=== PATIENT | female | born 1945 | race Caucasian/White ===

== ENCOUNTER 2023-01-14 16:42 | Inpatient (IN) ==
[2023-01-14 17:41] LABS: Base Excess VBG 3.2 mEq/L; HCO3 VBG 27 mmol/L; Oxygen Saturation VBG < 60.0 %; PCO2 VBG 37 mmHg (38-50); PO2 VBG 24 mmHg; pH VBG 7.47 (7.36-7.41)
--- NOTE | 2023-01-14 17:44 | XRay Report ---
XR chest 1V portable HISTORY: 77 years-old Female weakness acute weakness COMPARISON: None TECHNIQUE: AP view of the chest FINDINGS: Cardiac silhouette is enlarged. Pulmonary vascular congestion. No pneumothorax or large pleural effus ion. Mild right hemidiaphragmatic elevation. Blunting the costophrenic angles with mild bibasilar den sities. Degenerative changes of the shoulders and spine. Atherosclerosis of the aorta. IMPRESSION: 1. Cardiomegaly without acute process. 2. Subsegmental bibasilar densities favoring atelectasis. A mild nonspecific pneumonitis could appear similarly. ACT 112: Negative or not required by law. The above report was generated using voice recognition software. It may contain grammatical, syntax o r spelling errors. Electronically signed by: Noah Fletcher M.D. 01/14/2023 5:41 PM
[2023-01-14 17:47] LABS: Basophils # (auto) 0.11 K/uL (0-0.2); Basophils % (auto) 1.1 %; Eosinophils # (auto) 0.34 K/uL (0-0.50); Eosinophils % (auto) 3.4 %; Hematocrit (blood only) 41.6 % (37.0-47.0); Hemoglobin 14.1 g/dl (12.0-16.0); Immature Granulocytes # (auto) 0.03 K/uL (0.01-0.20); Immature Granulocytes % (auto) 0.3 %; Lymphocytes # (auto) 2.53 K/uL (1.2-3.4); Lymphocytes % (auto) 25.3 %; Mean Corpuscular Hemoglobin 31.1 pg (25.0-34.0); Mean Corpuscular Hgb Conc 33.9 g/dL (32.0-36.0); Mean Corpuscular Volume 91.6 fL (80.0-100.0); Mean Platelet Volume 9.5 fL (9.4-12.4); Monocytes # (auto) 1.04 K/uL (0.11-0.59); Monocytes % (auto) 10.4 %; Neutrophils # (auto) 5.96 K/uL (1.40-6.50); Neutrophils % (auto) 59.5 %; Platelet Count 220 K/uL (130-400); RDW Coefficient of Variation 13.1 % (11.5-14.5); RDW Standard Deviation 43.9 fL (36.4-46.3); Red Blood Count 4.54 M/uL (4.20-5.40); White Blood Count 10.01 K/ul (4.8-10.8)
[2023-01-14 18:02] LABS: Albumin Level 3.9 gm/dl (3.4-5.0); Bilirubin Direct 0.1 mg/dl (0-0.2); Bilirubin,Total 0.9 mg/dl (0.2-1.0); Calcium 9.5 mg/dl (8.6-10.3); Creatinine Clr Calc Pharmacy 47.2 ml/min; Est GFR (African American) 50.8 ml/min; Est GFR (Non-African American) 43.8 ml/min; Magnesium 1.2 mg/dl (1.7-2.4); Potassium 4.5 mmol/L (3.5-5.1); Total Protein 6.3 gm/dl (6.0-8.3)
[2023-01-14 18:09] LABS: Troponin I High Sensitivity 13.3 pg/ml (0-14)
[2023-01-14 18:11] LABS: INR 1.1 (0.9-1.1); Partial Thromboplastin Ratio 0.9; Partial Thromboplastin Time 23.9 Seconds (21.0-31.0); Prothrombin Time 11.3 Seconds (9.0-12.0)
[2023-01-14 18:23] LABS: Influenza A virus by PCR Negative (Neg); Influenza B virus by PCR Negative (Neg); RSV by PCR Negative (Neg); SARS CoV2 RNA(COVID-19) Ceph NEGATIVE (Negative)
[2023-01-14] MEDS ORDERED: OPTIRAY 320 500ml IV ONE (18:29)
--- NOTE | 2023-01-14 18:57 | CT Scan Report ---
CT head/brain wo con CLINICAL HISTORY: 77 years-old Female with weakness. Acute weakness with reported dementia TECHNIQUE: Multiple axial CT images of the head were obtained without contrast. A dose lowering tech nique was utilized adhering to the principles of ALARA. CT DOSE: 2551.54 mGy.cm COMPARISON: Brain MRI 05/17/2022. FINDINGS: No acute intracranial hemorrhage, midline shift, intracranial mass, hydrocephalus, territorial ischem ia or abnormal extra-axial collection. Involutional changes with white matter hypodensities suggestiv e of chronic microvascular ischemic disease. 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 Additional tiny chronic infarcts of the right cerebellum. Th e calvarium is intact. The paranasal sinuses, mastoid air cells, and middle ear cavities are clear. IMPRESSION: 1. No acute intracranial abnormality. 2. Chronic findings as above. ACT 112: Negative or not required by law. The above report was generated using voice recognition software. It may contain grammatical, syntax o r spelling errors. Electronically signed by: Noah Fletcher M.D. 01/14/2023 6:56 PM
--- NOTE | 2023-01-14 19:11 | CT Scan Report ---
CT angio chest PE protocol, CT abd pelvis IV con only HISTORY: 77 years-old Female with weakness. Acute weakness with chest and abdominal pain TECHNIQUE: Multiple CTA images of the chest were obtained after the intravenous administration of 110 ml Optiray. Coronal and sagittal MIPS were obtained from the axial data set and were submitted for review. All measurements were obtained according to NASCET criteria. A dose lowering technique was u tilized adhering to the principles of ALARA. COMPARISON: None. FINDINGS: Limited exam secondary to positioning and respiratory motion artifact. CTA: Moderate cardiomegaly. Fusiform dilation of the ascending thoracic aorta measures up to 4 cm at the l evel of the main pulmonary artery. No dissection. Patency of the imaged great vessels. Suboptimal shayan luation of the pulmonary arterial tree secondary to contrast bolus timing. No central pulmonary embol i identified. CT CHEST: No thyroid nodule. Subcentimeter mediastinal lymph nodes measuring up to 9 mm are likely reactive. Mi ld pleural parenchymal scarring of the left lung apex. Subsegmental bibasilar atelectasis. No pneumot horax, pleural effusion or overt pulmonary edema. No suspicious pulmonary nodules or masses identifie d. Central airways appear patent. Unremarkable soft tissues. Postoperative changes of the left should er. No acute fracture identified. CT ABDOMEN/PELVIS: No pneumatosis or pneumoperitoneum. Unremarkable spleen, pancreas, gallbladder and adrenal glands are within normal limits. Ill-defined 9 mm hypodense focus of the inferior right hepatic lobe is too sma ll to characterize. Patent portal vein. Probable cyst of the inferior pole right kidney, 2.6 cm. Ther e is a 4 cm area of decreased attenuation involving the mid to inferior pole left kidney measuring up to approximately 4.0 x 5.8 cm. 4 mm nonobstructing calculus of the inferior pole left kidney. Mild f ocal scarring with parenchymal thinning within the interpolar left kidney. No ureteral calculi or hyd ronephrosis. Urinary bladder wall thickening with partial distention. Hysterectomy. Atherosclerosis o f the aorta with infrarenal ectasia measuring up to 2.4 x 2.3 cm. No lymphadenopathy identified. Trace free pelvic fluid. There is no bowel obstruction or bowel wall thickening. The appendix is not definitively seen. Unremarkable soft tissues. No acute fracture identified. Posterior interbody matthew a nd screw fusion hardware noted at L3-L5. No evidence of hardware complication. IMPRESSION: 1. Limited exam as above. 2. Unremarkable CTA of the chest. No central pulmonary emboli identified. 3. Moderate sized acute left renal infarct. 4. Left nephrolithiasis. 5. Mild fusiform dilation of the ascending thoracic aorta, 4 cm. 6. Additional findings as above. ACT 112: Negative or not required by law. The above report was generated using voice recognition software. It may contain grammatical, syntax o r spelling errors. Electronically signed by: Noah Fletcher M.D. 01/14/2023 7:08 PM
[2023-01-14] MEDS: MAGNESIUM SULFATE / D5W 1 GM/100 ML BAG IV SCH ×2 (19:48→22:06)
[2023-01-14 20:01] LABS: Appearance Urine Cloudy (Clear); Bacteria Urine Automated 4+ (Negative); Bilirubin Urine Negative (Negative); Blood Urine Negative (Negative); Color Urine Yellow; Epithelial Cell Urine Auto >30 /lpf (0-5); Glucose Urine UA Negative (Negative); Ketones Urine Trace (Negative); Leukocyte Esterase Urine 1+ (Negative); Nitrite Urine Negative (Negative); Specific Gravity Urine > 1.045 (1.000-1.030); Urobilinogen Urine Negative (Negative); WBC Urine Automated >30 /hpf (0-5); pH Urine 8.5 (4.5-7.5)
[2023-01-14 20:19] LABS: Protein Urine Trace (Negative)
[2023-01-14 20:26] LABS: RBC Urine Automated 0-4 /hpf (0-4)
[2023-01-14] MEDS: levETIRAcetam 1,000 MG in 0.9 % SODIUM CHLORIDE 100 ML IV STA ×2 (20:52→21:41)
--- NOTE | 2023-01-14 21:34 | History & Physical Report ---
Date of Service January 14, 2023 Assessment & Plan (1) Hypomagnesemia: (2) Infarction of kidney: (3) Diabetes: (4) HLD (hyperlipidemia): (5) HTN (hypertension): (6) 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: (7) Dementia: (8) GERD (gastroesophageal reflux disease): (9) Bladder spasms: (10) Depression: (11) CHF (congestive heart failure): (12) Confusion and disorientation: Plan Confusion and disorientation- Differential includes but not limited to worsening dementia, metabolic encephalopathy, CVA, seizure Patient will be kept n.p.o. due to decreased responsiveness NSS at 60 mils per hour Hypertension/CHF/hypomagnesemia- Hold amlodipine, carvedilol, furosemide, potassium chloride, Entresto and spironolactone Magnesium level 1.2. 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 We will consult neurology as needed Urinary tract infection- UA looks positive Follow urine culture and sensitivity Placed on ceftriaxone 2 g IV daily History of Present Illness Chief Complaint: The patient presents to the emergency department due to altered mental status, as noted by the family, who reports that she is more confused and weak than her baseline. She underwent a cardiac catheterization by Dr. Steele at [facility] yesterday without need for any intervention, and without incident. Primary Care Provider: Rusty Enriquez MD The patient is a 77-year-old female with a past medical history significant for hypertension, hypercholesterolemia, dementia, CHF, diabetes mellitus, GERD, bladder spasm, depression, and hyperlipidemia. She presents to the emergency department as noted above. Significant abnormal laboratories: WBC 10.01, glucose 191, magnesium 1.2. COVID-19, influenza AMB, and RSV testing all negative CTA of chest was negative for PE, but did show a [address] scan of abdomen and pelvis with contrast showed a moderate-sized acute left renal infarct measuring 4.0 x 5.8 cm While in the ED, patient did appear to have some possible seizure-like activity suggesting a possible focal seizure involving right upper extremity, for which she was given Keppra 1000 mg IV empirically, and MRI brain was ordered along with EEG Allergies Allergy/AdvReac Type Severity Reaction Status Date / Time aspirin Allergy Severe Hives Verified 06/17/22 14:14 NSAIDS (Non-Steroidal Allergy Intermediate Hives Verified 06/17/22 14:14 Anti-Inflamma Home Medications Medication Instructions Recorded Confirmed Type amlodipine 5 mg tablet 5 mg PO DAILY 01/29/22 01/14/23 History carvedilol 3.125 mg tablet 3.125 mg PO BID 01/29/22 01/14/23 History oxybutynin chloride 5 mg 5 mg PO HS 01/29/22 01/14/23 History tablet,extended release 24 hr paroxetine HCl 20 mg tablet 20 mg PO HS 01/29/22 01/14/23 History rosuvastatin 20 mg tablet 20 mg PO DAILY 01/29/22 01/14/23 History sacubitril 24 mg-valsartan 26 mg 1 tab PO BID 01/29/22 01/14/23 History tablet (Entresto) spironolactone 25 mg tablet 25 mg PO DAILY 01/29/22 01/14/23 History syringe with needle 3 mL 25 x 5/8" #8 ea 02/04/22 01/14/23 Rx (BD Eclipse Luer-Andrei) diazepam 5 mg tablet (Valium) 5 mg PO .COMPLEX PRN anxiety #2 02/25/22 01/14/23 Rx tabs donepezil 5 mg tablet 5 mg PO HS #30 tabs 01/06/23 01/14/23 Rx cholestyramine-aspartame 4 gram 1 ea PO DAILY 01/14/23 01/14/23 History oral powder for susp in a packet (Cholestyramine Light) ergocalciferol (vitamin D2) 1,250 1,250 mcg PO WK 01/14/23 01/14/23 History mcg (50,000 unit) capsule (Vitamin D2) furosemide 80 mg tablet 80 mg PO DAILY 01/14/23 01/14/23 History metformin 1,000 mg tablet 1,000 mg PO BID 01/14/23 01/14/23 History nystatin 100,000 unit/gram topical 1 applic topical UD 01/14/23 01/14/23 History powder omeprazole 20 mg capsule,delayed 40 mg PO DAILY 01/14/23 01/14/23 History release potassium chloride 20 mEq 40 meq PO BID 01/14/23 01/14/23 History tablet,extended release(part/cryst) Past Med/Surg History Medical History (Updated 01/15/23 @ 03:56 by Jon Eagle MD) Bladder spasms CHF (congestive heart failure) Dementia Depression Diabetes GERD (gastroesophageal reflux disease) HLD (hyperlipidemia) HTN (hypertension) 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 Daughter, Ary, takes care of patient. Home health. Other Information That Helps Us Care for You: No Feels Safe at Home: Yes Safety Concerns: Feels Safe At This Time Assistive Devices: Cane, Denture - Upper, Denture - Lower, Glasses and Walker Review of Systems Review of Systems: Review of systems and HPI are limited due to patient's underlying dementia Physical Exam Physical Exam: The patient is awake, confused, normocephalic and atraumatic, lying in bed and in no acute distress. HEENT--PERRL, EOMI, mucous membranes and oropharynx dry. Neck--supple. No JVD. No bruits. Thyroid normal, trachea midline, no adenopathy. Heart--normal S1 and S2. No murmurs, rubs or gallops. Lungs--clear bilaterally, no respiratory distress, no accessory muscle use. Abdomen--normal bowel sounds and soft. Nontender. Nondistended. Obese Extremities--no cyanosis or clubbing. No edema. Dermatologic--normal skin turgor, normal color, no abnormal lymph nodes, no rash. Neurologic--cranial nerves II through XII grossly intact. Limited exam Rheumatologic--limited exam Psychiatric--confused Results & Data Results & Data Vital Signs (Past 12 Hours) Vital Signs Temp Pulse Resp BP Pulse Ox O2 Del Method 01/14/23 20:00 81 22 164/102 H 95 01/14/23 19:31 80 22 152/93 H 94 01/14/23 19:22 79 22 170/108 H 94 01/14/23 19:08 92 H 22 154/94 H 96 01/14/23 20:30 81 01/14/23 17:12 73 16 97 Room Air 01/14/23 16:54 36.9 C 80 14 149/99 H 95 Room Air 01/14/23 16:50 88 Laboratory Results Laboratory Results WBC 10.01 K/ul (4.8-10.8) 01/14/23 17:31 RBC 4.54 M/uL (4.20-5.40) 01/14/23 17:31 Hgb 14.1 g/dl (12.0-16.0) 01/14/23 17: Hct 41.6 % (37.0-47.0) 01/14/23 17:31 MCV 91.6 fL (80.0-100.0) 01/14/23 17: MCH 31.1 pg (25.0-34.0) 01/14/23 17: MCHC 33.9 g/dL (32.0-36.0) 01/14/23 17:31 RDW Std Deviation 43.9 fL (36.4-46.3) 01/14/23 17:31 RDW Coeff of Sam 13.1 % (11.5-14.5) 01/14/23 17:31 Plt Count 220 K/uL (130-400) 01/14/23 17:31 MPV 9.5 fL (9.4-12.4) 01/14/23 17: Immature Gran % (Auto) 0.3 % 01/14/23 17:31 Neut % (Auto) 59.5 % 01/14/23 17:31 Lymph % (Auto) 25.3 % 01/14/23 17: [place] % (Auto) 10.4 % 01/14/23 17: Eos % (Auto) 3.4 % 01/14/23 17:31 Baso % (Auto) 1.1 % 01/14/23 17:31 Neut # (Auto) 5.96 K/uL (1.40-6.50) 01/14/23 17: Lymph # (Auto) 2.53 K/uL (1.2-3.4) 01/14/23 17:31 [place] # (Auto) 1.04 K/uL (0.11-0.59) H 01/14/23 17: Eos # (Auto) 0.34 K/uL (0-0.50) 01/14/23 17: Baso # (Auto) 0.11 K/uL (0-0.2) 01/14/23: Immature Gran # (Auto) 0.03 K/uL (0.01-0.20) 01/14/23 17: PT 11.3 Seconds (9.0-12.0) 01/14/23: INR 1.1 (0.9-1.1) 01/14/23: APTT 23.9 Seconds (21.0-31.0) 01/14/23: PTT Ratio 0.9 01/14/23: VBG pH 7.47 (7.36-7.41) H 01/14/23: VBG pCO2 37 mmHg (38-50) L 01/14/23 17: VBG pO2 24 mmHg 01/14/23: VBG HCO3 27 mmol/L 01/14/23: VBG O2 Saturation < 60.0 % 01/14/23: VBG Base Excess 3.2 mEq/L 01/14/23: Sodium 139 mmol/L (136-145) 01/14/23 17: Potassium 4.5 mmol/L (3.5-5.1) 01/14/23: Chloride 104 mmol/L (98-107) 01/14/23: Carbon Dioxide 27 mmol/L (21-32) 01/14/23:30 Anion Gap 8 (3-11) 01/14/23: BUN 13 mg/dl (6-23) 01/14/23: Creatinine 1.18 mg/dl (0.6-1.2) 01/14/23 17: Est Cr Clr Drug Dosing 47.2 ml/min 01/14/23 17:30 Est GFR ( Amer) 50.8 ml/min 01/14/23 17: Est GFR (Non-Af Amer) 43.8 ml/min 01/14/23 17:30 BUN/Creatinine Ratio 11.0 (10-20) 01/14/23 17:30 Glucose 191 mg/dl (70-99(Fasting)) H 01/14/23 17:30 POC Glucose 203 mg/dl (70-99) H 01/15/23 01:01 Calcium 9.5 mg/dl (8.6-10.3) 01/14/23 17:30 Magnesium 1.2 mg/dl (1.7-2.4) L 01/14/23 17:30 Total Bilirubin 0.9 mg/dl (0.2-1.0) 01/14/23 17:30 Direct Bilirubin 0.1 mg/dl (0-0.2) 01/14/23 17:30 AST 28 U/L (13-39) 01/14/23 17:30 ALT 13 U/L (7-52) 01/14/23 17:30 Alkaline Phosphatase 45 U/L (34-104) 01/14/23 17:30 Ammonia 20.0 umol/L (18-72) 01/14/23 17:30 Troponin I High Sens 13.3 pg/ml (0-14) 01/14/23 17:30 Total Protein 6.3 gm/dl (6.0-8.3) 01/14/23 17:30 Albumin 3.9 gm/dl (3.4-5.0) 01/14/23 17:30 Lipase 38 U/L (11-82) 01/14/23 17:30 Urine Color Yellow 01/14/23 19:20 Urine Appearance Cloudy (Clear) A 01/14/23 19:20 Urine pH 8.5 (4.5-7.5) H 01/14/23 19:20 Ur Specific [place] > 1.045 (1.000-1.030) H 01/14/23 19:20 Urine Protein Trace (Negative) H 01/14/23 19:20 Urine Glucose (UA) Negative (Negative) 01/14/23 19:20 Urine Ketones Trace (Negative) H 01/14/23 19:20 Urine Blood Negative (Negative) 01/14/23 19:20 Urine Nitrite Negative (Negative) 01/14/23 19:20 Urine Bilirubin Negative (Negative) 01/14/23 19:20 Urine Urobilinogen Negative (Negative) 01/14/23 19:20 Ur Leukocyte Esterase 1+ (Negative) H 01/14/23 19:20 Urine WBC (Auto) >30 /hpf (0-5) H 01/14/23 19:20 Urine RBC (Auto) 0-4 /hpf (0-4) 01/14/23 19:20 U Hyaline Cast (Auto) 1-5 /lpf (0-5) 01/14/23 19:20 U Epithel Cells (Auto) >30 /lpf (0-5) H 01/14/23 19:20 Urine Bacteria (Auto) 4+ (Negative) H 01/14/23 19:20 SARS-CoV-2 (PCR) NEGATIVE (Negative) 01/14/23 17:24 Influenza Type A (PCR) Negative (Neg) 01/14/23 17:24 Influenza Type B (PCR) Negative (Neg) 01/14/23 17:24 RSV (RT-PCR) Negative (Neg) 01/14/23 17:24 Impressions Abdomen/Pelvis CT 01/14/23 17:12 CT angio chest PE protocol, CT abd pelvis IV con only HISTORY: 77 years-old Female with weakness. Acute weakness with chest and abdominal pain TECHNIQUE: Multiple CTA images of the chest were obtained after the intravenous administration of 110 ml Optiray. Coronal and sagittal MIPS were obtained from the axial data set and were submitted for review. All measurements were obtained according to NASCET criteria. A dose lowering technique was utilized adhering to the principles of ALARA. COMPARISON: None. FINDINGS: Limited exam secondary to positioning and respiratory motion artifact. CTA: Moderate cardiomegaly. Fusiform dilation of the ascending thoracic aorta measures up to 4 cm at the level of the main pulmonary artery. No dissection. Patency of the imaged great vessels. Suboptimal evaluation of the pulmonary arterial tree secondary to contrast bolus timing. No central pulmonary emboli identified. CT CHEST: No thyroid nodule. Subcentimeter mediastinal lymph nodes measuring up to 9 mm are likely reactive. Mild pleural parenchymal scarring of the left lung apex. Subsegmental bibasilar atelectasis. No pneumothorax, pleural effusion or overt pulmonary edema. No suspicious pulmonary nodules or masses identified. Central airways appear patent. Unremarkable soft tissues. Postoperative changes of the left shoulder. No acute fracture identified. CT ABDOMEN/PELVIS: No pneumatosis or pneumoperitoneum. Unremarkable spleen, pancreas, gallbladder and adrenal glands are within normal limits. Ill-defined 9 mm hypodense focus of the inferior right hepatic lobe is too small to characterize. Patent portal vein. Probable cyst of the inferior pole right kidney, 2.6 cm. There is a 4 cm area of decreased attenuation involving the mid to inferior pole left kidney measuring up to approximately 4.0 x 5.8 cm. 4 mm nonobstructing calculus of the inferior pole left kidney. Mild focal scarring with parenchymal thinning within the interpolar left kidney. No ureteral calculi or hydronephrosis. Urinary bladder wall thickening with partial distention. Hysterectomy. Atherosclerosis of the aorta with infrarenal ectasia measuring up to 2.4 x 2.3 cm. No lymphadenopathy identified. Trace free pelvic fluid. There is no bowel obstruction or bowel wall thickening. The appendix is not definitively seen. Unremarkable soft tissues. No acute fracture identified. Posterior interbody matthew and screw fusion hardware noted at L3-L5. No evidence of hardware complication. IMPRESSION: 1. Limited exam as above. 2. Unremarkable CTA of the chest. No central pulmonary emboli identified. 3. Moderate sized acute left renal infarct. 4. Left nephrolithiasis. 5. Mild fusiform dilation of the ascending thoracic aorta, 4 cm. 6. Additional findings as above. ACT 112: Negative or not required by law. The above report was generated using voice recognition software. It may contain grammatical, syntax or spelling errors. Electronically signed by: Noah Fletcher M.D. 01/14/2023 7:08 PM Chest CTA 01/14/23 17:13 CT angio chest PE protocol, CT abd pelvis IV con only HISTORY: 77 years-old Female with weakness. Acute weakness with chest and abdominal pain TECHNIQUE: Multiple CTA images of the chest were obtained after the intravenous administration of 110 ml Optiray. Coronal and sagittal MIPS were obtained from the axial data set and were submitted for review. All measurements were obtained according to NASCET criteria. A dose lowering technique was utilized adhering to the principles of ALARA. COMPARISON: None. FINDINGS: Limited exam secondary to positioning and respiratory motion artifact. CTA: Moderate cardiomegaly. Fusiform dilation of the ascending thoracic aorta measures up to 4 cm at the level of the main pulmonary artery. No dissection. Patency of the imaged great vessels. Suboptimal evaluation of the pulmonary arterial tree secondary to contrast bolus timing. No central pulmonary emboli identified. CT CHEST: No thyroid nodule. Subcentimeter mediastinal lymph nodes measuring up to 9 mm are likely reactive. Mild pleural parenchymal scarring of the left lung apex. Subsegmental bibasilar atelectasis. No pneumothorax, pleural effusion or overt pulmonary edema. No suspicious pulmonary nodules or masses identified. Central airways appear patent. Unremarkable soft tissues. Postoperative changes of the left shoulder. No acute fracture identified. CT ABDOMEN/PELVIS: No pneumatosis or pneumoperitoneum. Unremarkable spleen, pancreas, gallbladder and adrenal glands are within normal limits. Ill-defined 9 mm hypodense focus of the inferior right hepatic lobe is too small to characterize. Patent portal vein. Probable cyst of the inferior pole right kidney, 2.6 cm. There is a 4 cm area of decreased attenuation involving the mid to inferior pole left kidney measuring up to approximately 4.0 x 5.8 cm. 4 mm nonobstructing calculus of the inferior pole left kidney. Mild focal scarring with parenchymal thinning within the interpolar left kidney. No ureteral calculi or hydronephrosis. Urinary bladder wall thickening with partial distention. Hysterectomy. Atherosclerosis of the aorta with infrarenal ectasia measuring up to 2.4 x 2.3 cm. No lymphadenopathy identified. Trace free pelvic fluid. There is no bowel obstruction or bowel wall thickening. The appendix is not definitively seen. Unremarkable soft tissues. No acute fracture identified. Posterior interbody matthew and screw fusion hardware noted at L3-L5. No evidence of hardware complication. IMPRESSION: 1. Limited exam as above. 2. Unremarkable CTA of the chest. No central pulmonary emboli identified. 3. Moderate sized acute left renal infarct. 4. Left nephrolithiasis. 5. Mild fusiform dilation of the ascending thoracic aorta, 4 cm. 6. Additional findings as above. ACT 112: Negative or not required by law. The above report was generated using voice recognition software. It may contain grammatical, syntax or spelling errors. Electronically signed by: Noah Fletcher M.D. 01/14/2023 7:08 PM Chest X-Ray 01/14/23 17:13 XR chest 1V portable HISTORY: 77 years-old Female weakness acute weakness COMPARISON: None TECHNIQUE: AP view of the chest FINDINGS: Cardiac silhouette is enlarged. Pulmonary vascular congestion. No pneumothorax or large pleural effusion. Mild right hemidiaphragmatic elevation. Blunting the costophrenic angles with mild bibasilar densities. Degenerative changes of the shoulders and spine. Atherosclerosis of the aorta. IMPRESSION: 1. Cardiomegaly without acute process. 2. Subsegmental bibasilar densities favoring atelectasis. A mild nonspecific pneumonitis could appear similarly. ACT 112: Negative or not required by law. The above report was generated using voice recognition software. It may contain grammatical, syntax or spelling errors. Electronically signed by: Noah Fletcher M.D. 01/14/2023 5:[address] 01/14/23 17:13 CT head/brain wo con CLINICAL HISTORY: 77 years-old Female with weakness. Acute weakness with reported dementia TECHNIQUE: Multiple axial CT images of the head were obtained without contrast. A dose lowering technique was utilized adhering to the principles of ALARA. CT DOSE: 2551.54 mGy.cm COMPARISON: Brain MRI 05/17/2022. FINDINGS: No acute intracranial hemorrhage, midline shift, intracranial mass, hydrocephalus, territorial ischemia or abnormal extra-axial collection. Involutional changes with white matter hypodensities suggestive of chronic microvascular ischemic disease. 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 Additional tiny chronic infarcts of the right cerebellum. The calvarium is intact. The paranasal sinuses, mastoid air cells, and middle ear cavities are clear. IMPRESSION: 1. No acute intracranial abnormality. 2. Chronic findings as above. ACT 112: Negative or not required by law. The above report was generated using voice recognition software. It may contain grammatical, syntax or spelling errors. Electronically signed by: Noah Fletcher M.D. 01/14/2023 6:56 PM Renal Artery Duplex 01/14/23 21:37 Exam(s): US RENAL EXAM: US Retroperitoneal Limited, Renal CLINICAL HISTORY: Reason for exam: acute left renal infarct. TECHNIQUE: Real-time limited ultrasound of the retroperitoneum with image documentation. COMPARISON: CT scan from January 14, 2023. FINDINGS: Aorta: The abdominal aorta is widely patent peak systolic velocity 93 cm/s. Right kidney: The right kidney measures 10 cm craniocaudad with normal appearance. No hydronephrosis. The right main renal artery measures up to 9 9 cm/s with resistive index of 0.71. The right renal arcuate arteries demonstrate normal waveforms with resistive indices ranging from 0.5-0.65. The right renal vein is patent. Right renal aortic ratio is 1. 1. No stones. Left kidney: The left main renal artery measures 75 cm/s with resistive index of 0.73. The left renal arcuate arteries are not well seen. Only one is measured with a resistive index of 0.5. Left renal aortic ratio is 0.8. IMPRESSION: Limited visualization of the left renal vascular structures. The main renal artery is patent without evidence of thrombosis or renal artery stenosis. Only one left renal arcuate artery could be measured with normal resistive index of 0.5. The right renal arterial structures appear within normal limits. No evidence of thrombosis or renal artery stenosis. Electronically signed by: Karri Tyson MD 01/15/23 02:07 AM Code Status & VTE Plan Code Status Full code per POA VTE Prophylaxis Plan VTE Prophylaxis will be ordered: Yes PG Care Time/CCT Total # of Minutes Spent Total Time Spent with Patient: Total time spent is greater than 50% in coordination of care (as documented) at patient's floor/unit and/or counseling patient: Coding Level of Care Code 11487 INT INP/OBS CARE 3/75MIN Diagnoses Hypomagnesemia E83.42 Infarction of kidney N28.0 Diabetes E11.9 HLD (hyperlipidemia) E78.5 HTN (hypertension) I10 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 I63.20 Dementia F03.90 GERD (gastroesophageal reflux disease) K21.9 Bladder spasms N32.89 Depression F32.A CHF (congestive heart failure) I50.9 Confusion and disorientation R41.0
[2023-01-14] MEDS ORDERED: LORazepam 2 MG/1 ML VIAL IV STA (22:15)
[2023-01-14] MEDS ORDERED: GLUCAGON FOR INJ 1 MG VIAL SQ PRN (22:34)
[2023-01-14] MEDS ORDERED: ONDANSETRON INJ 2 MG/ML 2 ML VIAL IV PRN (22:34)
[2023-01-14] MEDS ORDERED: CARBOHYDRATES FOR HYPOGLYCEMIA PO PRN (22:34)
[2023-01-14] MEDS ORDERED: DEXTROSE 50% 50 ML SYRINGE IV PRN (22:34)
[2023-01-14] MEDS ORDERED: GLUCOSE 40% GEL 15 GM TUBE PO PRN (22:34)
[2023-01-14] MEDS ORDERED: GLUCOSE 10 TAB/TUBE PO PRN (22:34)
[2023-01-14] MEDS ORDERED: INFLUENZA VACCINE HIGH DOSE PF 65+ 0.7 ML SYR IM ONE (22:56)
[2023-01-14] MEDS: SODIUM CHLORIDE 0.9% 1000ML 1,000 ML IV SCH (23:16)
[2023-01-15] MEDS: HEPARIN SOD 5,000 UNIT/0.5 ML VIAL SQ SCH ×4 (00:58→21:05)
[2023-01-15] MEDS: INSULIN ASPART PER UNIT CHARGE SC SCH ×5 (01:05→21:04)
--- NOTE | 2023-01-15 01:13 | Emergency Department Note ---
History of Present Illness General Chief complaint: Illness Stated complaint: AMS? Heart cath yesterday [facility] Time Seen by Provider: 01/14/23 17:02 History of Present Illness Provider complaint: Altered mental status 77-year-old female with history of dementia presents to the emergency department for altered mental status. Family reports that the patient is more confused than usual and more weak than usual. They report that the patient had a heart cath by Dr. Escobar or at [facility] yesterday. No falls. Home Medications Medication Instructions Recorded Confirmed Type amlodipine 5 mg tablet 5 mg PO DAILY 01/29/22 01/14/23 History carvedilol 3.125 mg tablet 3.125 mg PO BID 01/29/22 01/14/23 History oxybutynin chloride 5 mg 5 mg PO HS 01/29/22 01/14/23 History tablet,extended release 24 hr paroxetine HCl 20 mg tablet 20 mg PO HS 01/29/22 01/14/23 History rosuvastatin 20 mg tablet 20 mg PO DAILY 01/29/22 01/14/23 History sacubitril 24 mg-valsartan 26 mg 1 tab PO BID 01/29/22 01/14/23 History tablet (Entresto) spironolactone 25 mg tablet 25 mg PO DAILY 01/29/22 01/14/23 History syringe with needle 3 mL 25 x 5/8" #8 ea 02/04/22 01/14/23 Rx (BD Eclipse Luer-Andrei) diazepam 5 mg tablet (Valium) 5 mg PO .COMPLEX PRN anxiety #2 02/25/22 01/14/23 Rx tabs donepezil 5 mg tablet 5 mg PO HS #30 tabs 01/06/23 01/14/23 Rx cholestyramine-aspartame 4 gram 1 ea PO DAILY 01/14/23 01/14/23 History oral powder for susp in a packet (Cholestyramine Light) ergocalciferol (vitamin D2) 1,250 1,250 mcg PO WK 01/14/23 01/14/23 History mcg (50,000 unit) capsule (Vitamin D2) furosemide 80 mg tablet 80 mg PO DAILY 01/14/23 01/14/23 History metformin 1,000 mg tablet 1,000 mg PO BID 01/14/23 01/14/23 History nystatin 100,000 unit/gram topical 1 applic topical UD 01/14/23 01/14/23 History powder omeprazole 20 mg capsule,delayed 40 mg PO DAILY 01/14/23 01/14/23 History release potassium chloride 20 mEq 40 meq PO BID 01/14/23 01/14/23 History tablet,extended release(part/cryst) Allergies Allergy/AdvReac Type Severity Reaction Status Date / Time aspirin Allergy Severe Hives Verified 06/17/22 14:14 NSAIDS (Non-Steroidal Allergy Intermediate Hives Verified 06/17/22 14:14 Anti-Inflamma Past Med/Surg History Medical History Dementia Diabetes HLD (hyperlipidemia) HTN (hypertension) 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 Daughter, Ary, takes care of patient. Home health. Other Information That Helps Us Care for You: No Feels Safe at Home: Yes Safety Concerns: Feels Safe At This Time Assistive Devices: Cane, Denture - Upper, Denture - Lower, Glasses and Walker Physical Exam Vital Signs Vital Signs - 24 hr 01/14/23 16:50 01/14/23 16:54 01/14/23 17:12 Temperature 36.9 C Temperature Source Oral Pulse Rate 88 80 73 Pulse Rate from SpO2 Sensor Pulse Rhythm Irregular Regular Respiratory Rate 14 16 Blood Pressure 149/99 H Blood Pressure Mean 115 Pulse Oximetry 95 97 Oxygen Delivery Method Room Air Room Air Sepsis Recent Fever Within 48 Hours No Sepsis New/Unexplained Change in Mental Status Yes Sepsis Action Taken by Nursing No Action Required 01/14/23 20:30 01/14/23 19:08 01/14/23 19:22 Temperature Temperature Source Pulse Rate 81 92 H 79 Pulse Rate from SpO2 Sensor Pulse Rhythm Respiratory Rate 22 22 Blood Pressure 154/94 H 170/108 H Blood Pressure Mean 114 128 Pulse Oximetry 96 94 Oxygen Delivery Method Sepsis Recent Fever Within 48 Hours Sepsis New/Unexplained Change in Mental Status Sepsis Action Taken by Nursing 01/14/23 19:31 01/14/23 20:00 01/14/23 21:00 Temperature Temperature Source Pulse Rate 80 81 94 H Pulse Rate from SpO2 Sensor Pulse Rhythm Respiratory Rate 22 22 24 Blood Pressure 152/93 H 164/102 H 140/89 Blood Pressure Mean 112 122 106 Pulse Oximetry 94 95 93 Oxygen Delivery Method Room Air Sepsis Recent Fever Within 48 Hours Sepsis New/Unexplained Change in Mental Status Sepsis Action Taken by Nursing 01/14/23 21:30 01/14/23 21:30 Temperature Temperature Source Pulse Rate 91 H Pulse Rate from SpO2 Sensor 86 Pulse Rhythm Respiratory Rate 18 Blood Pressure 138/85 Blood Pressure Mean 102 Pulse Oximetry 94 Oxygen Delivery Method Sepsis Recent Fever Within 48 Hours Sepsis New/Unexplained Change in Mental Status Sepsis Action Taken by Nursing Physical Exam HENT: Exam performed. -Head: Normocephalic and atraumatic. -Right Ear: External ear normal. No mastoid erythema -Left Ear: External ear normal. No mastoid erythema EYES: Conjunctivae and EOM are normal. Pupils are equal, round, and reactive to light. Right eye exhibits no discharge. Left eye exhibits no discharge. No scleral icterus. NECK: Normal range of motion. Neck supple. No JVD present. No spinous process tenderness present. No tracheal deviation and normal range of motion present. CV: Normal rate, regular rhythm, normal heart sounds and intact distal pulses. There is no peripheral edema. Palpable radial pulses bue. PULM/CHEST: Effort normal and breath sounds normal. No respiratory distress. No stridor. She has no wheezes. She has no rales. ABD: The abdomen is soft. She has no distension. MUSC: Right groin heart cath site is well-appearing with no obvious bleeding erythema or hematoma SKIN: Skin is warm and dry. She is not diaphoretic. PSYCH: She has a normal mood and affect. Behavior is normal. Judgment and thought content normal. Course Course 1701: The patient was evaluated in room C7. A complete history and physical exam was performed Administered Medications Heparin Sodium (Porcine) (Heparin Sod 5,000 Unit/0.5 Ml Vial) 7,500 units SQ Q8 ROSANNA Stop: 02/13/23 22:33 Last Admin: 01/15/23 00:58 Dose: 7,500 units Documented By: AMM Sodium Chloride (Nss 1000ml) 1,000 mls @ 60 mls/hr IV .[id number] ROSANNA Stop: 02/13/23 22:33 Last Infusion: 01/14/23 23:59 Dose: 0 mls/hr Documented By: Admin: 01/14/23 23:16 Dose: 60 mls/hr Documented By: BETY Insulin Aspart (Insulin Aspart Per Unit Charge) 0 units SC Q6 ROSANNA Stop: 02/14/23 00:00 Last Admin: 01/15/23 01:05 Dose: 3 units Documented By: BETY Co-signed By: STAYING MACHINE OPERATOR Discontinued Medications Magnesium Sulfate/Dextrose (Magnesium Sulfate / D5w) 1 gm in 100 mls @ 100 mls/hr IV Q1H ROSANNA Stop: 01/14/23 21:13 Last Infusion: 01/14/23 23:59 Dose: 0 mls/hr Documented By: Admin: 01/14/23 22:06 Dose: 100 mls/hr Documented By: Infusion: 01/14/23 20:51 Dose: 0 mls/hr Documented By: Admin: 01/14/23 19:48 Dose: 100 mls/hr Documented By: MIKE Levetiracetam 1,000 mg/ Sodium (Chloride) 110 mls @ 440 mls/hr IV NOW STA Stop: 01/14/23 20:09 Last Infusion: 01/14/23 22:20 Dose: 0 mls/hr Documented By: Admin: 01/14/23 21:41 Dose: 440 mls/hr Documented By: LEWIS Ioversol (Optiray 320 500ml) 110 ml IV ONCE ONE Stop: 01/14/23 18:30 Last Admin: 01/14/23 18:30 Dose: 110 ml Documented By: DANELLE Lorazepam (Lorazepam 2 Mg/1 Ml Vial) 0.5 mg IV NOW STA Stop: 01/14/23 22:16 Last Admin: 01/15/23 00:44 Dose: 0.5 mg Documented By: BETY Medical Decision Making Laboratory Data Attestation: I reviewed the patient's lab results. 01/14/23 17:31 01/14/23 17:30 Lab Results 01/14/23 01/14/23 01/14/23 Range/Units 17:24 17:27 17:30 WBC (4.8-10.8) K/ul RBC (4.20-5.40) M/uL Hgb (12.0-16.0) g/dl Hct (37.0-47.0) % MCV (80.0-100.0) fL MCH (25.0-34.0) pg MCHC (32.0-36.0) g/dL RDW Std Deviation (36.4-46.3) fL RDW Coeff of Sam (11.5-14.5) % Plt Count (130-400) K/uL MPV (9.4-12.4) fL Immature Gran % (Auto) % Neut % (Auto) % Lymph % (Auto) % [place] % (Auto) % Eos % (Auto) % Baso % (Auto) % Neut # (Auto) (1.40-6.50) K/uL Lymph # (Auto) (1.2-3.4) K/uL [place] # (Auto) (0.11-0.59) K/uL Eos # (Auto) (0-0.50) K/uL Baso # (Auto) (0-0.2) K/uL Immature Gran # (Auto) (0.01-0.20) K/uL PT (9.0-12.0) Seconds INR (0.9-1.1) APTT (21.0-31.0) Seconds PTT Ratio VBG pH (7.36-7.41) VBG pCO2 (38-50) mmHg VBG pO2 mmHg VBG HCO3 mmol/L VBG O2 Saturation % VBG Base Excess mEq/L Sodium 139 (136-145) mmol/L Potassium 4.5 (3.5-5.1) mmol/L Chloride 104 (98-107) mmol/L Carbon Dioxide 27 (21-32) mmol/L Anion Gap 8 (3-11) BUN 13 (6-23) mg/dl Creatinine 1.18 (0.6-1.2) mg/dl Est Cr Clr Drug Dosing 47.2 ml/min Est GFR ( Amer) 50.8 ml/min Est GFR (Non-Af Amer) 43.8 ml/min BUN/Creatinine Ratio 11.0 (10-20) Glucose 191 H (70-99(Fasting)) mg/dl POC Glucose 178 H (70-99) mg/dl Calcium 9.5 (8.6-10.3) mg/dl Magnesium 1.2 L (1.7-2.4) mg/dl Total Bilirubin 0.9 (0.2-1.0) mg/dl Direct Bilirubin 0.1 (0-0.2) mg/dl AST 28 (13-39) U/L ALT 13 (7-52) U/L Alkaline Phosphatase 45 (34-104) U/L Ammonia (18-72) umol/L Troponin I High Sens 13.3 (0-14) pg/ml Total Protein 6.3 (6.0-8.3) gm/dl Albumin 3.9 (3.4-5.0) gm/dl Lipase 38 (11-82) U/L Urine Color Urine Appearance (Clear) Urine pH (4.5-7.5) Ur Specific [place] (1.000-1.030) Urine Protein (Negative) Urine Glucose (UA) (Negative) Urine Ketones (Negative) Urine Blood (Negative) Urine Nitrite (Negative) Urine Bilirubin (Negative) Urine Urobilinogen (Negative) Ur Leukocyte Esterase (Negative) Urine WBC (Auto) (0-5) /hpf Urine RBC (Auto) (0-4) /hpf U Hyaline Cast (Auto) (0-5) /lpf U Epithel Cells (Auto) (0-5) /lpf Urine Bacteria (Auto) (Negative) SARS-CoV-2 (PCR) NEGATIVE (Negative) Influenza Type A (PCR) Negative (Neg) Influenza Type B (PCR) Negative (Neg) RSV (RT-PCR) Negative (Neg) 01/14/23 01/14/23 01/14/23 Range/Units 17:30 17:30 17:31 WBC 10.01 (4.8-10.8) K/ul RBC 4.54 (4.20-5.40) M/uL Hgb 14.1 (12.0-16.0) g/dl Hct 41.6 (37.0-47.0) % MCV 91.6 (80.0-100.0) fL MCH 31.1 (25.0-34.0) pg MCHC 33.9 (32.0-36.0) g/dL RDW Std Deviation 43.9 (36.4-46.3) fL RDW Coeff of Sam 13.1 (11.5-14.5) % Plt Count 220 (130-400) K/uL MPV 9.5 (9.4-12.4) fL Immature Gran % (Auto) 0.3 % Neut % (Auto) 59.5 % Lymph % (Auto) 25.3 % [place] % (Auto) 10.4 % Eos % (Auto) 3.4 % Baso % (Auto) 1.1 % Neut # (Auto) 5.96 (1.40-6.50) K/uL Lymph # (Auto) 2.53 (1.2-3.4) K/uL [place] # (Auto) 1.04 H (0.11-0.59) K/uL Eos # (Auto) 0.34 (0-0.50) K/uL Baso # (Auto) 0.11 (0-0.2) K/uL Immature Gran # (Auto) 0.03 (0.01-0.20) K/uL PT 11.3 (9.0-12.0) Seconds INR 1.1 (0.9-1.1) APTT 23.9 (21.0-31.0) Seconds PTT Ratio 0.9 VBG pH (7.36-7.41) VBG pCO2 (38-50) mmHg VBG pO2 mmHg VBG HCO3 mmol/L VBG O2 Saturation % VBG Base Excess mEq/L Sodium (136-145) mmol/L Potassium (3.5-5.1) mmol/L Chloride (98-107) mmol/L Carbon Dioxide (21-32) mmol/L Anion Gap (3-11) BUN (6-23) mg/dl Creatinine (0.6-1.2) mg/dl Est Cr Clr Drug Dosing ml/min Est GFR ( Amer) ml/min Est GFR (Non-Af Amer) ml/min BUN/Creatinine Ratio (10-20) Glucose (70-99(Fasting)) mg/dl POC Glucose (70-99) mg/dl Calcium (8.6-10.3) mg/dl Magnesium (1.7-2.4) mg/dl Total Bilirubin (0.2-1.0) mg/dl Direct Bilirubin (0-0.2) mg/dl AST (13-39) U/L ALT (7-52) U/L Alkaline Phosphatase (34-104) U/L Ammonia 20.0 (18-72) umol/L Troponin I High Sens (0-14) pg/ml Total Protein (6.0-8.3) gm/dl Albumin (3.4-5.0) gm/dl Lipase (11-82) U/L Urine Color Urine Appearance (Clear) Urine pH (4.5-7.5) Ur Specific [place] (1.000-1.030) Urine Protein (Negative) Urine Glucose (UA) (Negative) Urine Ketones (Negative) Urine Blood (Negative) Urine Nitrite (Negative) Urine Bilirubin (Negative) Urine Urobilinogen (Negative) Ur Leukocyte Esterase (Negative) Urine WBC (Auto) (0-5) /hpf Urine RBC (Auto) (0-4) /hpf U Hyaline Cast (Auto) (0-5) /lpf U Epithel Cells (Auto) (0-5) /lpf Urine Bacteria (Auto) (Negative) SARS-CoV-2 (PCR) (Negative) Influenza Type A (PCR) (Neg) Influenza Type B (PCR) (Neg) RSV (RT-PCR) (Neg) 01/14/23 01/14/23 Range/Units 17:31 19:20 WBC (4.8-10.8) K/ul RBC (4.20-5.40) M/uL Hgb (12.0-16.0) g/dl Hct (37.0-47.0) % MCV (80.0-100.0) fL MCH (25.0-34.0) pg MCHC (32.0-36.0) g/dL RDW Std Deviation (36.4-46.3) fL RDW Coeff of Sam (11.5-14.5) % Plt Count (130-400) K/uL MPV (9.4-12.4) fL Immature Gran % (Auto) % Neut % (Auto) % Lymph % (Auto) % [place] % (Auto) % Eos % (Auto) % Baso % (Auto) % Neut # (Auto) (1.40-6.50) K/uL Lymph # (Auto) (1.2-3.4) K/uL [place] # (Auto) (0.11-0.59) K/uL Eos # (Auto) (0-0.50) K/uL Baso # (Auto) (0-0.2) K/uL Immature Gran # (Auto) (0.01-0.20) K/uL PT (9.0-12.0) Seconds INR (0.9-1.1) APTT (21.0-31.0) Seconds PTT Ratio VBG pH 7.47 H (7.36-7.41) VBG pCO2 37 L (38-50) mmHg VBG pO2 24 mmHg VBG HCO3 27 mmol/L VBG O2 Saturation < 60.0 % VBG Base Excess 3.2 mEq/L Sodium (136-145) mmol/L Potassium (3.5-5.1) mmol/L Chloride (98-107) mmol/L Carbon Dioxide (21-32) mmol/L Anion Gap (3-11) BUN (6-23) mg/dl Creatinine (0.6-1.2) mg/dl Est Cr Clr Drug Dosing ml/min Est GFR ( Amer) ml/min Est GFR (Non-Af Amer) ml/min BUN/Creatinine Ratio (10-20) Glucose (70-99(Fasting)) mg/dl POC Glucose (70-99) mg/dl Calcium (8.6-10.3) mg/dl Magnesium (1.7-2.4) mg/dl Total Bilirubin (0.2-1.0) mg/dl Direct Bilirubin (0-0.2) mg/dl AST (13-39) U/L ALT (7-52) U/L Alkaline Phosphatase (34-104) U/L Ammonia (18-72) umol/L Troponin I High Sens (0-14) pg/ml Total Protein (6.0-8.3) gm/dl Albumin (3.4-5.0) gm/dl Lipase (11-82) U/L Urine Color Yellow Urine Appearance Cloudy A (Clear) Urine pH 8.5 H (4.5-7.5) Ur Specific [place] > 1.045 H (1.000-1.030) Urine Protein Trace H (Negative) Urine Glucose (UA) Negative (Negative) Urine Ketones Trace H (Negative) Urine Blood Negative (Negative) Urine Nitrite Negative (Negative) Urine Bilirubin Negative (Negative) Urine Urobilinogen Negative (Negative) Ur Leukocyte Esterase 1+ H (Negative) Urine WBC (Auto) >30 H (0-5) /hpf Urine RBC (Auto) 0-4 (0-4) /hpf U Hyaline Cast (Auto) 1-5 (0-5) /lpf U Epithel Cells (Auto) >30 H (0-5) /lpf Urine Bacteria (Auto) 4+ H (Negative) SARS-CoV-2 (PCR) (Negative) Influenza Type A (PCR) (Neg) Influenza Type B (PCR) (Neg) RSV (RT-PCR) (Neg) Imaging Data Attestation: I personally reviewed and interpreted this imaging study as follows: My Impression: CT head: No [facility]CH Radiologist's Impression: Abdomen/Pelvis CT 01/14/23 17:12 CT angio chest PE protocol, CT abd pelvis IV con only HISTORY: 77 years-old Female with weakness. Acute weakness with chest and abdominal pain TECHNIQUE: Multiple CTA images of the chest were obtained after the intravenous administration of 110 ml Optiray. Coronal and sagittal MIPS were obtained from the axial data set and were submitted for review. All measurements were obtained according to NASCET criteria. A dose lowering technique was utilized adhering to the principles of ALARA. COMPARISON: None. FINDINGS: Limited exam secondary to positioning and respiratory motion artifact. CTA: Moderate cardiomegaly. Fusiform dilation of the ascending thoracic aorta measures up to 4 cm at the level of the main pulmonary artery. No dissection. Patency of the imaged great vessels. Suboptimal evaluation of the pulmonary arterial tree secondary to contrast bolus timing. No central pulmonary emboli identified. CT CHEST: No thyroid nodule. Subcentimeter mediastinal lymph nodes measuring up to 9 mm are likely reactive. Mild pleural parenchymal scarring of the left lung apex. Subsegmental bibasilar atelectasis. No pneumothorax, pleural effusion or overt pulmonary edema. No suspicious pulmonary nodules or masses identified. Central airways appear patent. Unremarkable soft tissues. Postoperative changes of the left shoulder. No acute fracture identified. CT ABDOMEN/PELVIS: No pneumatosis or pneumoperitoneum. Unremarkable spleen, pancreas, gallbladder and adrenal glands are within normal limits. Ill-defined 9 mm hypodense focus of the inferior right hepatic lobe is too small to characterize. Patent portal vein. Probable cyst of the inferior pole right kidney, 2.6 cm. There is a 4 cm area of decreased attenuation involving the mid to inferior pole left kidney measuring up to approximately 4.0 x 5.8 cm. 4 mm nonobstructing calculus of the inferior pole left kidney. Mild focal scarring with parenchymal thinning within the interpolar left kidney. No ureteral calculi or hydronephrosis. Urinary bladder wall thickening with partial distention. Hysterectomy. Atherosclerosis of the aorta with infrarenal ectasia measuring up to 2.4 x 2.3 cm. No lymphadenopathy identified. Trace free pelvic fluid. There is no bowel obstruction or bowel wall thickening. The appendix is not definitively seen. Unremarkable soft tissues. No acute fracture identified. Posterior interbody matthew and screw fusion hardware noted at L3-L5. No evidence of hardware complication. IMPRESSION: 1. Limited exam as above. 2. Unremarkable CTA of the chest. No central pulmonary emboli identified. 3. Moderate sized acute left renal infarct. 4. Left nephrolithiasis. 5. Mild fusiform dilation of the ascending thoracic aorta, 4 cm. 6. Additional findings as above. ACT 112: Negative or not required by law. The above report was generated using voice recognition software. It may contain grammatical, syntax or spelling errors. Electronically signed by: Noah Fletcher M.D. 01/14/2023 7:08 PM Chest CTA 01/14/23 17:13 CT angio chest PE protocol, CT abd pelvis IV con only HISTORY: 77 years-old Female with weakness. Acute weakness with chest and abdominal pain TECHNIQUE: Multiple CTA images of the chest were obtained after the intravenous administration of 110 ml Optiray. Coronal and sagittal MIPS were obtained from the axial data set and were submitted for review. All measurements were obtained according to NASCET criteria. A dose lowering technique was utilized adhering to the principles of ALARA. COMPARISON: None. FINDINGS: Limited exam secondary to positioning and respiratory motion artifact. CTA: Moderate cardiomegaly. Fusiform dilation of the ascending thoracic aorta measures up to 4 cm at the level of the main pulmonary artery. No dissection. Patency of the imaged great vessels. Suboptimal evaluation of the pulmonary arterial tree secondary to contrast bolus timing. No central pulmonary emboli identified. CT CHEST: No thyroid nodule. Subcentimeter mediastinal lymph nodes measuring up to 9 mm are likely reactive. Mild pleural parenchymal scarring of the left lung apex. Subsegmental bibasilar atelectasis. No pneumothorax, pleural effusion or overt pulmonary edema. No suspicious pulmonary nodules or masses identified. Central airways appear patent. Unremarkable soft tissues. Postoperative changes of the left shoulder. No acute fracture identified. CT ABDOMEN/PELVIS: No pneumatosis or pneumoperitoneum. Unremarkable spleen, pancreas, gallbladder and adrenal glands are within normal limits. Ill-defined 9 mm hypodense focus of the inferior right hepatic lobe is too small to characterize. Patent portal vein. Probable cyst of the inferior pole right kidney, 2.6 cm. There is a 4 cm area of decreased attenuation involving the mid to inferior pole left kidney measuring up to approximately 4.0 x 5.8 cm. 4 mm nonobstructing calculus of the inferior pole left kidney. Mild focal scarring with parenchymal thinning within the interpolar left kidney. No ureteral calculi or hydronephrosis. Urinary bladd er wall thickening with partial distention. Hysterectomy. Atherosclerosis of the aorta with infrarenal ectasia measuring up to 2.4 x 2.3 cm. No lymphadenopathy identified. Trace free pelvic fluid. There is no bowel obstruction or bowel wall thickening. The appendix is not definitively seen. Unremarkable soft tissues. No acute fracture identified. Posterior interbody matthew and screw fusion hardware noted at L3-L5. No evidence of hardware complication. IMPRESSION: 1. Limited exam as above. 2. Unremarkable CTA of the chest. No central pulmonary emboli identified. 3. Moderate sized acute left renal infarct. 4. Left nephrolithiasis. 5. Mild fusiform dilation of the ascending thoracic aorta, 4 cm. 6. Additional findings as above. ACT 112: Negative or not required by law. The above report was generated using voice recognition software. It may contain grammatical, syntax or spelling errors. Electronically signed by: Noah Fletcher M.D. 01/14/2023 7:08 PM Chest X-Ray 01/14/23 17:13 XR chest 1V portable HISTORY: 77 years-old Female weakness acute weakness COMPARISON: None TECHNIQUE: AP view of the chest FINDINGS: Cardiac silhouette is enlarged. Pulmonary vascular congestion. No pneumothorax or large pleural effusion. Mild right hemidiaphragmatic elevation. Blunting the costophrenic angles with mild bibasilar densities. Degenerative changes of the shoulders and spine. Atherosclerosis of the aorta. IMPRESSION: 1. Cardiomegaly without acute process. 2. Subsegmental bibasilar densities favoring atelectasis. A mild nonspecific pneumonitis could appear similarly. ACT 112: Negative or not required by law. The above report was generated using voice recognition software. It may contain grammatical, syntax or spelling errors. Electronically signed by: Noah Fletcher M.D. 01/14/2023 5:[address] 01/14/23 17:13 CT head/brain wo con CLINICAL HISTORY: 77 years-old Female with weakness. Acute weakness with reported dementia TECHNIQUE: Multiple axial CT images of the head were obtained without contrast. A dose lowering technique was utilized adhering to the principles of ALARA. CT DOSE: 2551.54 mGy.cm COMPARISON: Brain MRI 05/17/2022. FINDINGS: No acute intracranial hemorrhage, midline shift, intracranial mass, hydrocephalus, territorial ischemia or abnormal extra-axial collection. Involutional changes with white matter hypodensities suggestive of chronic microvascular ischemic disease. 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 Additional tiny chronic infarcts of the right cerebellum. The calvarium is intact. The paranasal sinuses, mastoid air cells, and middle ear cavities are clear. IMPRESSION: 1. No acute intracranial abnormality. 2. Chronic findings as above. ACT 112: Negative or not required by law. The above report was generated using voice recognition software. It may contain grammatical, syntax or spelling errors. Electronically signed by: Noah Fletcher M.D. 01/14/2023 6:56 PM ECG Data Attestation: I personally reviewed and interpreted this ECG as follows: Additional Comments: Atrial fibrillation with rate of 76. QRS 130 QTc 483. Left bundle branch block present. sgarbosa negative MDM Narrative Cardiac monitoring: An order was placed for continuous cardiac monitoring. The monitor shows a rate of 70 with atrial fibrilation rhythm interpreted by me Vital signs stable. Labs show hypomagnesemia. CT head within normal limits. CT of the chest within normal limits. CT abdomen pelvis shows possible splenic infarct. Patient will be admitted to the [facility] team Dr. Beltran notified. Magnesium repletion begun in the emergency department. Impression & Plan Hypomagnesemia, Infarction of kidney Discharge Plan Visit Data Chief Complaint: Illness Stated Complaint: AMS? Heart cath yesterday [facility] ED Provider: Emmanuel Brenner Discharge Problem: Hypomagnesemia, Infarction of kidney Patient Disposition: Admitted As Inpatient Discharge Instructions Interventions: ED Discharge Assessment Last Done: 01/14/23 22:19
--- NOTE | 2023-01-15 02:08 | Ultrasound Report ---
Exam(s): US RENAL EXAM: US Retroperitoneal Limited, Renal CLINICAL HISTORY: Reason for exam: acute left renal infarct. TECHNIQUE: Real-time limited ultrasound of the retroperitoneum with image documentation. COMPARISON: CT scan from January 14, 2023. FINDINGS: Aorta: The abdominal aorta is widely patent peak systolic velocity 93 cm/s. Right kidney: The right kidney measures 10 cm craniocaudad with normal appearance. No hydronephrosis. The right main renal artery measures up to 9 9 cm/s with resistive index of 0.71. The right renal arcuate arteries demonstrate normal waveforms with resistive indices ranging from 0.5-0.65. The right renal vein is patent. Right renal aortic ratio is 1. 1. No stones. Left kidney: The left main renal artery measures 75 cm/s with resistive index of 0.73. The left renal arcuate arteries are not well seen. Only one is measured with a resistive index of 0.5. Left renal aortic ratio is 0.8. IMPRESSION: Limited visualization of the left renal vascular structures. The main renal artery is patent without evidence of thrombosis or renal artery stenosis. Only one left renal arcuate artery could be measured with normal resistive index of 0.5. The right renal arterial structures appear within normal limits. No evidence of thrombosis or renal artery stenosis. Electronically signed by: Karri Tyson MD 01/15/23 02:07 AM
[2023-01-15] MEDS ORDERED: cefTRIAXone SODIUM 2,000 MG in DEXTROSE 5% 50 ML IV SCH (04:00)
[2023-01-15] MEDS ORDERED: cefTRIAXone SODIUM 350 MG/ML IM IM ONE (05:00)
[2023-01-15 06:29] LABS: Basophils # (auto) 0.07 K/uL (0-0.2); Basophils % (auto) 0.7 %; Eosinophils # (auto) 0.21 K/uL (0-0.50); Hematocrit (blood only) 38.1 % (37.0-47.0); Hemoglobin 13.1 g/dl (12.0-16.0); Immature Granulocytes # (auto) 0.04 K/uL (0.01-0.20); Immature Granulocytes % (auto) 0.4 %; Lymphocytes # (auto) 2.22 K/uL (1.2-3.4); Lymphocytes % (auto) 20.8 %; Mean Corpuscular Hemoglobin 31.4 pg (25.0-34.0); Mean Corpuscular Hgb Conc 34.4 g/dL (32.0-36.0); Mean Corpuscular Volume 91.4 fL (80.0-100.0); Mean Platelet Volume 10.4 fL (9.4-12.4); Monocytes # (auto) 1.35 K/uL (0.11-0.59); Monocytes % (auto) 12.7 %; Neutrophils # (auto) 6.78 K/uL (1.40-6.50); Neutrophils % (auto) 63.4 %; Platelet Count 216 K/uL (130-400); RDW Coefficient of Variation 13.3 % (11.5-14.5); RDW Standard Deviation 44.7 fL (36.4-46.3); Red Blood Count 4.17 M/uL (4.20-5.40); White Blood Count 10.67 K/ul (4.8-10.8)
[2023-01-15 06:51] LABS: Albumin Level 3.7 gm/dl (3.4-5.0); BUN Creatinine Ratio 10.5 (10-20); Calcium 9.4 mg/dl (8.6-10.3); Creatinine Clr Calc Pharmacy 41.8 ml/min; Est GFR (Non-African American) 37.9 ml/min; Magnesium 1.8 mg/dl (1.7-2.4); Phosphorus 3.6 mg/dl (2.5-4.9); Potassium 4.3 mmol/L (3.5-5.1)
[2023-01-15 07:01] LABS: INR 1.1 (0.9-1.1); Partial Thromboplastin Ratio 0.8; Partial Thromboplastin Time 22.3 Seconds (21.0-31.0); Prothrombin Time 11.2 Seconds (9.0-12.0)
[2023-01-15 08:11] LABS: Estimated Average Glucose 180 mg/dl; Hemoglobin A1C 7.9 % (4.5-5.6)
[2023-01-15] MEDS ORDERED: Flu Vaccine-High Dose (Fluzone-HD) PF 65+ 0.7mL SYR IM ONE (09:45)
--- NOTE | 2023-01-15 13:32 | Electroencephalogram ---
EEG Procedure Note Date of Service January 15, 2023 Start / End Times Start Time: 1134 End Time: [address] Eagle History 77-year-old with seizure-like activity Home Medication List Medication Instructions Recorded Confirmed Type amlodipine 5 mg tablet 5 mg PO DAILY 01/29/22 01/14/23 History carvedilol 3.125 mg tablet 3.125 mg PO BID 01/29/22 01/14/23 History oxybutynin chloride 5 mg 5 mg PO HS 01/29/22 01/14/23 History tablet,extended release 24 hr paroxetine HCl 20 mg tablet 20 mg PO HS 01/29/22 01/14/23 History rosuvastatin 20 mg tablet 20 mg PO DAILY 01/29/22 01/14/23 History sacubitril 24 mg-valsartan 26 mg 1 tab PO BID 01/29/22 01/14/23 History tablet (Entresto) spironolactone 25 mg tablet 25 mg PO DAILY 01/29/22 01/14/23 History syringe with needle 3 mL 25 x 5/8" #8 ea 02/04/22 01/14/23 Rx (BD Eclipse Luer-Andrei) diazepam 5 mg tablet (Valium) 5 mg PO .COMPLEX PRN anxiety #2 02/25/22 01/14/23 Rx tabs donepezil 5 mg tablet 5 mg PO HS #30 tabs 01/06/23 01/14/23 Rx cholestyramine-aspartame 4 gram 1 ea PO DAILY 01/14/23 01/14/23 History oral powder for susp in a packet (Cholestyramine Light) ergocalciferol (vitamin D2) 1,250 1,250 mcg PO WK 01/14/23 01/14/23 History mcg (50,000 unit) capsule (Vitamin D2) furosemide 80 mg tablet 80 mg PO DAILY 01/14/23 01/14/23 History metformin 1,000 mg tablet 1,000 mg PO BID 01/14/23 01/14/23 History nystatin 100,000 unit/gram topical 1 applic topical UD 01/14/23 01/14/23 History powder omeprazole 20 mg capsule,delayed 40 mg PO DAILY 01/14/23 01/14/23 History release potassium chloride 20 mEq 40 meq PO BID 01/14/23 01/14/23 History tablet,extended release(part/cryst) Inpatient Medication List Heparin Sodium (Porcine) (Heparin Sod 5,000 Unit/0.5 Ml Vial) 7,500 units SQ Q8 ROSANNA Stop: 02/13/23 22:33 Last Admin: 01/15/23 05:45 Dose: 7,500 units Documented By: Admin: 01/15/23 00:58 Dose: 7,500 units Documented By: BETY Sodium Chloride (Nss 1000ml) 1,000 mls @ 60 mls/hr IV .[id number] ROSANNA Stop: 02/13/23 22:33 Last Infusion: 01/14/23 23:59 Dose: 0 mls/hr Documented By: Admin: 01/14/23 23:16 Dose: 60 mls/hr Documented By: BETY Insulin Aspart (Insulin Aspart Per Unit Charge) 0 units SC Q6 ROSANNA Stop: 02/14/23 00:00 Last Admin: 01/15/23 05:45 Dose: 2 units Documented By: BETY Co-signed By: PK Admin: 01/15/23 01:05 Dose: 3 units Documented By: BETY Co-signed By: 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 MACHINE OPERATOR Discontinued Medications Ceftriaxone Sodium (Ceftriaxone Sodium 350 Mg/Ml Im) 1,000 mg IM NOW ONE Stop: 01/15/23 05:01 Last Admin: 01/15/23 05:02 Dose: 1,000 mg Documented By: BETY Magnesium Sulfate/Dextrose (Magnesium Sulfate / D5w) 1 gm in 100 mls @ 100 mls/hr IV Q1H ROSANNA Stop: 01/14/23 21:13 Last Infusion: 01/14/23 23:59 Dose: 0 mls/hr Documented By: Admin: 01/14/23 22:06 Dose: 100 mls/hr Documented By: Infusion: 01/14/23 20:51 Dose: 0 mls/hr Documented By: Admin: 01/14/23 19:48 Dose: 100 mls/hr Documented By: MIKE Levetiracetam 1,000 mg/ Sodium (Chloride) 110 mls @ 440 mls/hr IV NOW STA Stop: 01/14/23 20:09 Last Infusion: 01/14/23 22:20 Dose: 0 mls/hr Documented By: Admin: 01/14/23 21:41 Dose: 440 mls/hr Documented By: LEWIS Influenza Virus Vaccine (Influenza Vaccine High Dose Pf 65+ 0.7 Ml Syr) 0.7 ml IM .ONCE ONE Stop: 01/14/23 22:57 Last Admin: 01/15/23 11:12 Dose: Not Given Documented By: JOSE Ioversol (Optiray 320 500ml) 110 ml IV ONCE ONE Stop: 01/14/23 18:30 Last Admin: 01/14/23 18:30 Dose: 110 ml Documented By: DANELLE Lorazepam (Lorazepam 2 Mg/1 Ml Vial) 0.5 mg IV NOW STA Stop: 01/14/23 22:16 Last Admin: 01/15/23 00:44 Dose: 0.5 mg Documented By: BETY Description This is a 21 electrode EEG with a single channel dedicated to limited EKG. The electrodes were placed in accordance with the International 10-20 system. Interpretation The predominant background activity consists of an irregular 8-9 Hz activity, of up to 40 mV in amplitude,seen symmetrically distributed over the posterior head regions bilaterally. This activity attenuates nicely with eye-opening and other alerting procedures. Photic stimulation was performed and elicited no change in the background activity and no abnormal responses were seen. Hyperventilation was not performed. A mild amount of muscle and movement artifact activity contaminated the recording, yet did not hinder interpretation to any significant degree. Throughout the waking portion of the recording, no focal abnormalities, abnormal slow activity, or potentially epileptogenic discharges are seen. The patient entered the drowsy state and brief periods of stage II sleep with no further activation. In summary, this EEG was normal during wakefulness and sleep. No focal abnormalities, potentially epileptogenic discharges, or abnormal slow activity was seen. Clinical Correlation The abscence of potentially epileptogenic activity does not exclude a seizure disorder, since interictally, EEGs can be normal. Clinical correlation is required. [facility] EEG Procedure Codes Indication for Procedure (1) Seizure-like activity: Neurology Neurology: 72751 EEG include record awake & sleepy
[2023-01-15] MEDS: SODIUM CHLORIDE 0.9% 1000ML 1,000 ML IV SCH (14:00)
--- NOTE | 2023-01-15 14:41 | Magnetic Resonance Report ---
MR brain wo con HISTORY: 77 years-old Female confusion acutely altered mental status COMPARISON: Head CT 01/14/2023, brain MRI 05/17/2022 TECHNIQUE: Multiplanar multisequence MRI of the brain was obtained without the use of IV contrast. FINDINGS: Degenerative changes of the cervical spine. Midline structures appear unremarkable. No restricted dif fusion. Encephalomalacia related to chronic cerebellar infarcts, left greater than right. Additional encephalomalacia and gliosis related to chronic frontoparietal infarcts bilaterally. Involutional césar nges with mild scattered T2/FLAIR hyperintense foci throughout the white matter. There is diffuse thickening of the pachymeninges measuring up to 3 mm on the left and 2 mm on the rig ht, new from 05/17/2022. Cerebral venous sinuses and major arterial flow voids appear patent. The skull, orbits and soft tissu es are unremarkable. Mastoid air cells and paranasal sinuses are clear. IMPRESSION: 1. No acute intracranial abnormality. No acute or subacute infarct. 2. Diffuse thickening of the pachymeninges measuring up to 3 mm on the left and 2 mm on the right whi ch is a new finding compared to the study from 05/17/2022. Findings may represent intracranial hypoten casa. Correlate clinically to exclude infection. 3. Involutional changes with chronic microvascular ischemic disease. 4. Encephalomalacia and gliosis related to chronic cerebral and cerebellar infarcts. ACT 112: Negative or not required by law. The above report was generated using voice recognition software. It may contain grammatical, syntax o r spelling errors. Electronically signed by: Noah Fletcher M.D. 01/15/2023 2:38 PM
[2023-01-15] MEDS ORDERED: Nursing to Pharmacy Communication SCH (18:45)
--- NOTE | 2023-01-15 22:19 | Hospitalist Progress Note ---
Date of Service January 15, 2023 Assessment & Plan (1) Confusion and disorientation: Plan Confusion and disorientation- Differential includes but not limited to worsening dementia, metabolic encephalopathy, CVA, seizure Patient is now more awake reviewed imaging. Patient appears to have chronic encephalomalacia noted on MRI with multiple chronic infarcts. Presentation could be progression of this chronic issue. Patient also appears to have abnormal urine, will treat as a UTI. Though unsure how much this is contributing to her clinical picture. 3 days of ceftriaxone. LD 01/17 EEG is normal. NSS at 60 mils per hour Hypertension/CHF/hypomagnesemia- Hold amlodipine, carvedilol, furosemide, potassium chloride, Entresto and spironolactone Magnesium level 1.2. 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 We will consult neurology as needed Urinary tract infection- UA looks positive Placed on ceftriaxone 2 g IV daily Admission and Anticipated Discharge Date Admission Date: January 14, 2023 Subjective Patient reports no new complaints. She does not recall what brought her to the hospital. SHe is asking for a mountain dew. Review of Systems Review of Systems: All systems reviewed & are unremarkable except as noted in HPI & below Physical Exam Physical Exam: The patient is awake, sitting in chair. HEENT--PERRL, EOMI. Neck--supple. No JVD. No bruits. Thyroid normal, trachea midline, no adenopathy. Heart--normal S1 and S2. No murmurs, rubs or gallops. Lungs--clear bilaterally, no respiratory distress, no accessory muscle use. Abdomen--normal bowel sounds and soft. Nontender. Nondistended. Obese Extremities--no cyanosis or clubbing. No edema. Dermatologic--normal skin turgor, normal color, no abnormal lymph nodes, no rash. Neurologic--cranial nerves II through XII grossly intact. Limited exam Rheumatologic--limited exam Psychiatric--confused Results & Data Results & Data Vital Signs (Past 12 Hours) Vital Signs Temp Pulse Pulse Resp BP Pulse Ox O2 Del Method 01/15/23 19:25 36.5 C 97 H 16 114/73 92 Room Air 01/15/23 16:10 102 H 01/15/23 15:21 36.4 C L 93 H 18 126/85 93 Room Air 01/15/23 11:04 36.7 C 83 18 116/77 91 Room Air PG Care Time/CCT Total # of Minutes Spent Total Time Spent with Patient: Total time spent is greater than 50% in coordination of care (as documented) at patient's floor/unit and/or counseling patient: Coding Level of Care Code 30255 SUB INP/OBS CARE 3/50MIN Diagnoses Confusion and disorientation R41.0
[2023-01-15 23:19] LABS: Hematocrit (blood only) 34.3 % (37.0-47.0); Hemoglobin 11.9 g/dl (12.0-16.0); Mean Corpuscular Hemoglobin 31.6 pg (25.0-34.0); Mean Corpuscular Hgb Conc 34.7 g/dL (32.0-36.0); Mean Corpuscular Volume 91.2 fL (80.0-100.0); Mean Platelet Volume 10.4 fL (9.4-12.4); Platelet Count 188 K/uL (130-400); RDW Coefficient of Variation 13.5 % (11.5-14.5); RDW Standard Deviation 44.8 fL (36.4-46.3); Red Blood Count 3.76 M/uL (4.20-5.40); White Blood Count 9.95 K/ul (4.8-10.8)
[2023-01-15 23:24] LABS: BUN Creatinine Ratio 14.8 (10-20); Creatinine Clr Calc Pharmacy 43.4 ml/min; Est GFR (Non-African American) 39.7 ml/min; Potassium 3.8 mmol/L (3.5-5.1)
[2023-01-15] MEDS ORDERED: ACETAMINOPHEN 325 MG TAB PO PRN (23:59)
[2023-01-16] MEDS: cefTRIAXone SODIUM 2,000 MG in DEXTROSE 5% 50 ML IV SCH (04:16)
[2023-01-16] MEDS: SODIUM CHLORIDE 0.9% 1000ML 1,000 ML IV SCH (05:07)
--- NOTE | 2023-01-16 05:29 | Electrocardiogram Report ---
Test Reason : Blood Pressure : / mmHG Vent. Rate : 076 BPM Atrial Rate : 076 BPM P-R Int : 000 ms QRS Dur : 130 ms QT Int : 430 ms P-R-T Axes : 025 -22 049 degrees QTc Int : 483 ms Sinus rhythm with Premature atrial complexes in a pattern of bigeminy Left bundle branch block Abnormal ECG When compared with ECG of 25-MAR-2007 12:51, Premature atrial complexes are now Present Left bundle branch block is now Present Confirmed by Jovany Ngo ([id number]) on 01/16/2023 5:29:19 AM Referred By: REFERRED SELF Confirmed By:Jovany Ngo
[2023-01-16] MEDS: HEPARIN SOD 5,000 UNIT/0.5 ML VIAL SQ SCH ×3 (05:49→20:43)
[2023-01-16 06:56] LABS: Basophils # (auto) 0.07 K/uL (0-0.2); Basophils % (auto) 0.8 %; Eosinophils # (auto) 0.26 K/uL (0-0.50); Eosinophils % (auto) 3.1 %; Hematocrit (blood only) 32.3 % (37.0-47.0); Hemoglobin 11.1 g/dl (12.0-16.0); Immature Granulocytes # (auto) 0.02 K/uL (0.01-0.20); Immature Granulocytes % (auto) 0.2 %; Lymphocytes % (auto) 29.7 %; Mean Corpuscular Hgb Conc 34.4 g/dL (32.0-36.0); Mean Corpuscular Volume 90.2 fL (80.0-100.0); Mean Platelet Volume 10.4 fL (9.4-12.4); Monocytes # (auto) 0.85 K/uL (0.11-0.59); Monocytes % (auto) 10.1 %; Neutrophils # (auto) 4.71 K/uL (1.40-6.50); Neutrophils % (auto) 56.1 %; Platelet Count 172 K/uL (130-400); RDW Coefficient of Variation 13.5 % (11.5-14.5); RDW Standard Deviation 44.2 fL (36.4-46.3); Red Blood Count 3.58 M/uL (4.20-5.40); White Blood Count 8.41 K/ul (4.8-10.8)
[2023-01-16 07:20] LABS: Albumin Level 3.2 gm/dl (3.4-5.0); Calcium 8.6 mg/dl (8.6-10.3); Creatinine Clr Calc Pharmacy 43.2 ml/min; Est GFR (African American) 45.6 ml/min; Est GFR (Non-African American) 39.4 ml/min; Magnesium 1.7 mg/dl (1.7-2.4); Phosphorus 3.8 mg/dl (2.5-4.9); Potassium 3.3 mmol/L (3.5-5.1)
[2023-01-16 07:42] LABS: INR 1.1 (0.9-1.1); Partial Thromboplastin Ratio 1.7; Prothrombin Time 11.4 Seconds (9.0-12.0)
[2023-01-16 08:12] LABS: Partial Thromboplastin Time 47.1 Seconds (21.0-31.0)
[2023-01-16] MEDS ORDERED: POTASSIUM CHLORIDE 20 MEQ/15 ML UDC PO STA (08:22)
--- NOTE | 2023-01-16 08:30 | Hospitalist Progress Note ---
Date of Service January 16, 2023 Assessment & Plan (1) Confusion and disorientation: Plan: acute metabolic encephalopathy, UTI poa, E coli pcn and quinalone resistant on iv ceftriaxone chronic encephalomalacia noted on MRI with multiple chronic infarcts. normal EEG Sees Dr Culp for Dementia Plan Hypertension/CHF/hypomagnesemia- due to altered metation and aspiration risk , Hold amlodipine, carvedilol, furosemide, potassium chloride, Entresto and spironolactone Hypomagnesemia, replete Acute left renal infarct-moderate risk, history of CKD 3 4.0 x 5.[address] Renal artery ultrasound with no significant change We will consult urology Admission and Anticipated Discharge Date Admission Date: January 14, 2023 Subjective Patient was alert and when I gather more interactive than when she presented she was oriented x2 she does have a E. coli UTI which is currently being treated and was conversant able to tell us that she does ambulate typically with a cane otherwise she has no focal complaints or problems except for difficulty eating because she does not have her dentures and she was hypokalemic Physical Exam Physical Exam: pt is pleasant cardiac is regular lungs are clear Results & Data Results & Data Vital Signs (Past 12 Hours) Vital Signs Temp Pulse Pulse Resp BP BP Pulse Ox 01/16/23 07:54 97.5 F L 75 18 108/69 93 01/16/23 02:57 98.1 F 78 18 101/61 90 01/15/23 22:01 83 01/15/23 21:00 01/15/23 22:42 98.1 F 76 16 110/72 94 O2 Del Method 01/16/23 07:54 Room Air 01/16/23 02:57 Room Air 01/15/23 22:01 01/15/23 21:00 Room Air 01/15/23 22:42 Room Air PG Care Time/CCT Total # of Minutes Spent Total Time Spent with Patient: Total time spent is greater than 50% in coordination of care (as documented) at patient's floor/unit and/or counseling patient: Coding Level of Care Code 48090 SUB INP/OBS CARE 2/35MIN Diagnoses Confusion and disorientation R41.0
[2023-01-16] MEDS ORDERED: MAGNESIUM SULFATE / D5W 1 GM/100 ML BAG IV ONE (08:35)
[2023-01-16] MEDS: INSULIN ASPART PER UNIT CHARGE SC SCH ×4 (08:36→21:06)
--- NOTE | 2023-01-16 15:25 | Urology Consultation ---
Date of Consultation January 16, 2023 Assessment & Plan (1) Infarction of kidney: 77 yo F who presented to the emergency department on 01/14/2023 for altered mental status and weakness after recent cardiac catheterization admitted for confusion and disorientation, seizure-like activity, and suspected UTI. Urology consulted for left renal infarct. Patient is afebrile and hemodynamically stable. Labs reviewedcreatinine 1.29, WBC 8.41, hemoglobin 11.1. Urine culture grew out E. coli, currently on IV ceftriaxone. Continue antibiotics for acute infection. CT imaging reviewed and notable for a 4.0 x 5.8 cm acute renal infarct involving the mid to inferior pole of the left kidney. Renal artery duplex shows the main renal artery is patent without evidence of thrombosis or renal artery stenosis, limited visualization of the left renal vascular structures. No intervention warranted. Recommend evaluate for possible underlying cause such as coagulopathy, malignancy, etc. Continue supportive care and monitoring blood pressure and kidney function. will sign off. Supervising Physician Co-Signing Physician Notes Discussed patient with MARVA. Agree with plan. History of Present Illness Reason for Consultation: Renal infarct Requesting Physician: Dr. Hackett Attending Physician: Donnell Booker MD History of Present Illness This is a 77-year-old female with past medical history of CHF, dementia, depression, diabetes, GERD, hyperlipidemia, hypertension who presented to the emergency department on 01/14/2023 for altered mental status and weakness after recent cardiac catheterization. She was afebrile on arrival, hypertensive. Lab work reviewed and showed creatinine 1.18, normal electrolytes, WBC 10.01, hemoglobin 14.1. Urinalysis notable for 1+ LE, >30 WBC, greater than simple 30 epithelials, 4+ bacteria. CT abdomen/pelvis showed a 4 cm area of decreased attenuation involving the mid to inferior pole of left kidney measuring up to approximately 4.0 x 5.8 cm. 4 mm nonobstructing calculus of the inferior pole of left kidney. Mild focal scarring with parenchymal thinning within the interpolar left kidney. No ureteral calculi or hydronephrosis. She was treated with IV fluids, heparin, magnesium, levetiracetam and lorazepam in ED. She was admitted to the hospital medicine service for further evaluation of confusion and seizure-like activity in ED. Urology is consulted for renal infarct. Chart review: Afebrile Labs - creatinine 1.29, WBC 8.41, Hgb 11.1. Urine culture E. coli, on IV Ceftriaxone Renal Artery Duplex - IMPRESSION: Limited visualization of the left renal vascular structures. The main renal artery is patent without evidence of thrombosis or renal artery stenosis. Only one left renal arcuate artery could be measured with normal resistive index of 0.5. The right renal arterial structures appear within normal limits. No evidence of thrombosis or renal artery stenosis. Patient seen and examined at bedside. She is resting in her bedside chair, arouses to her name but appears somnolent. She is unable to tell me what brought her here. She is unable to provide meaningful history. Denies flank or abdominal pain. Denies nausea or vomiting. Denies fever or chills. Denies dysuria or hematuria. External female catheter in place draining concentrated yellow urine. She denies history of stones. Denies family history of malignancy. Allergies Allergy/AdvReac Type Severity Reaction Status Date / Time aspirin Allergy Severe Hives Verified 06/17/22 14:14 NSAIDS (Non-Steroidal Allergy Intermediate Hives Verified 06/17/22 14:14 Anti-Inflamma Home Medications Medication Instructions Recorded Confirmed Type amlodipine 5 mg tablet 5 mg PO DAILY 01/29/22 01/14/23 History carvedilol 3.125 mg tablet 3.125 mg PO BID 01/29/22 01/14/23 History oxybutynin chloride 5 mg 5 mg PO HS 01/29/22 01/14/23 History tablet,extended release 24 hr paroxetine HCl 20 mg tablet 20 mg PO HS 01/29/22 01/14/23 History rosuvastatin 20 mg tablet 20 mg PO DAILY 01/29/22 01/14/23 History sacubitril 24 mg-valsartan 26 mg 1 tab PO BID 01/29/22 01/14/23 History tablet (Entresto) spironolactone 25 mg tablet 25 mg PO DAILY 01/29/22 01/14/23 History syringe with needle 3 mL 25 x 5/8" #8 ea 02/04/22 01/14/23 Rx (BD Eclipse Luer-Andrei) diazepam 5 mg tablet (Valium) 5 mg PO .COMPLEX PRN anxiety #2 02/25/22 01/14/23 Rx tabs donepezil 5 mg tablet 5 mg PO HS #30 tabs 01/06/23 01/14/23 Rx cholestyramine-aspartame 4 gram 1 ea PO DAILY 01/14/23 01/14/23 History oral powder for susp in a packet (Cholestyramine Light) ergocalciferol (vitamin D2) 1,250 1,250 mcg PO WK 01/14/23 01/14/23 History mcg (50,000 unit) capsule (Vitamin D2) furosemide 80 mg tablet 80 mg PO DAILY 01/14/23 01/14/23 History metformin 1,000 mg tablet 1,000 mg PO BID 01/14/23 01/14/23 History nystatin 100,000 unit/gram topical 1 applic topical UD 01/14/23 01/14/23 History powder omeprazole 20 mg capsule,delayed 40 mg PO DAILY 01/14/23 01/14/23 History release potassium chloride 20 mEq 40 meq PO BID 01/14/23 01/14/23 History tablet,extended release(part/cryst) Patient History Medical History Bladder spasms CHF (congestive heart failure) Dementia Depression Diabetes GERD (gastroesophageal reflux disease) HLD (hyperlipidemia) HTN (hypertension) 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 Daughter, Ary, takes care of patient. Home health. Other Information That Helps Us Care for You: No Feels Safe at Home: Yes Safety Concerns: Feels Safe At This Time Assistive Devices: Cane, Denture - Upper, Denture - Lower, Glasses and Walker Review of Systems Review of Systems: Unobtainable due to cognitive status Physical Exam Constitutional: well developed and well nourished; no acute distress Neck: normal visual inspection Respiratory: normal respiratory effort; no respiratory distress and no labored breathing Cardiovascular: Rate/Rhythm: regular rate Gastrointestinal (Abdomen): Inspection/Auscultation: abdomen normal to inspection; abdomen not distended Percussion/Palpation: abdomen soft; abdomen nontender and no guarding Musculoskeletal: Head/Neck/Chest: normocephalic and head atraumatic Neurologic: + confused Psychiatric: Orientation: oriented to person Genitourinary: external catheter in place, concentrated yellow urine in collection container Results & Data Vital Signs (Past 12 Hours) Vital Signs Temp Pulse Pulse Resp BP Pulse Ox O2 Del Method 01/16/23 11:25 36.6 C 85 16 105/69 95 Room Air 01/16/23 10:02 72 01/16/23 07:54 36.4 C L 75 18 108/69 93 Room Air PG Care Time/CCT Total # of Minutes Spent Total Time Spent with Patient: Total time spent is greater than 50% in coordination of care (as documented) at patient's floor/unit and/or counseling patient: Coding Level of Care Code 27642 INT INP/OBS CARE 2/55MIN Diagnoses Infarction of kidney N28.0 Time Spent (min) 58
[2023-01-17] MEDS: HEPARIN SOD 5,000 UNIT/0.5 ML VIAL SQ SCH ×3 (05:12→21:04)
[2023-01-17] MEDS: cefTRIAXone SODIUM 2,000 MG in DEXTROSE 5% 50 ML IV SCH (05:12)
[2023-01-17 06:36] LABS: Basophils # (auto) 0.05 K/uL (0-0.2); Basophils % (auto) 0.8 %; Eosinophils # (auto) 0.31 K/uL (0-0.50); Hematocrit (blood only) 30.8 % (37.0-47.0); Hemoglobin 10.5 g/dl (12.0-16.0); Immature Granulocytes # (auto) 0.02 K/uL (0.01-0.20); Immature Granulocytes % (auto) 0.3 %; Lymphocytes # (auto) 2.05 K/uL (1.2-3.4); Lymphocytes % (auto) 33.1 %; Mean Corpuscular Hemoglobin 30.5 pg (25.0-34.0); Mean Corpuscular Hgb Conc 34.1 g/dL (32.0-36.0); Mean Corpuscular Volume 89.5 fL (80.0-100.0); Mean Platelet Volume 10.5 fL (9.4-12.4); Monocytes % (auto) 11.3 %; Neutrophils # (auto) 3.06 K/uL (1.40-6.50); Neutrophils % (auto) 49.5 %; Platelet Count 181 K/uL (130-400); RDW Coefficient of Variation 13.2 % (11.5-14.5); RDW Standard Deviation 43.5 fL (36.4-46.3); Red Blood Count 3.44 M/uL (4.20-5.40); White Blood Count 6.19 K/ul (4.8-10.8)
[2023-01-17 06:37] LABS: Albumin Level 3.1 gm/dl (3.4-5.0); BUN Creatinine Ratio 12.7 (10-20); Calcium 8.7 mg/dl (8.6-10.3); Creatinine Clr Calc Pharmacy 44.3 ml/min; Est GFR (African American) 46.9 ml/min; Est GFR (Non-African American) 40.5 ml/min; Magnesium 1.9 mg/dl (1.7-2.4); Phosphorus 2.9 mg/dl (2.5-4.9); Potassium 3.4 mmol/L (3.5-5.1)
[2023-01-17 07:23] LABS: Partial Thromboplastin Ratio 1.9; Prothrombin Time 10.9 Seconds (9.0-12.0)
[2023-01-17 07:42] LABS: Partial Thromboplastin Time 51.4 Seconds (21.0-31.0)
[2023-01-17] MEDS: INSULIN ASPART PER UNIT CHARGE SC SCH ×4 (09:13→21:04)
--- NOTE | 2023-01-17 18:17 | Hospitalist Progress Note ---
Date of Service January 17, 2023 Assessment & Plan (1) Confusion and disorientation: Plan: acute metabolic encephalopathy, UTI poa, E coli pcn and quinalone resistant on iv ceftriaxone , sensitive will de escalate to oral medication chronic encephalomalacia noted on MRI with multiple chronic infarcts. normal EEG Sees Dr Culp for Dementia. daughter feels is nearing baseline Plan Hypertension/CHF/hypomagnesemia- due to altered metation and aspiration risk , Hold amlodipine, carvedilol, furosemide, potassium chloride, Entresto and spironolactone Hypomagnesemia, replete Acute left renal infarct-moderate risk, history of CKD 3 4.0 x 5.[address] Renal artery ultrasound with no significant change consult urology recommned supportive care Admission and Anticipated Discharge Date Admission Date: January 14, 2023 Subjective Patient is alert and oriented x3 she has mild forgetfulness. I spoke to her daughter who endorses this is her typical mental state. She was able to walk 250 feet with physical therapy who recommends eventual disposition home but recommends possibility of home physical therapy. Physical Exam Physical Exam: pt is pleasant cardiac is regular lungs are clear Alert and oriented x3 today Results & Data Results & Data Vital Signs (Past 12 Hours) Vital Signs Temp Pulse Pulse Resp BP Pulse Ox O2 Del Method 01/17/23 15:05 97.9 F 79 20 117/66 94 Room Air 01/17/23 08:00 Room Air 01/17/23 08:00 76 01/17/23 11:15 98.6 F 74 20 117/72 Room Air 01/17/23 07:09 97.9 F 73 20 129/69 95 Room Air Laboratory Results Reviewed CBC Reviewed coagulation studies Reviewed chemistry PG Care Time/CCT Total # of Minutes Spent Total Time Spent with Patient: Total time spent is greater than 50% in coordination of care (as documented) at patient's floor/unit and/or counseling patient: Coding Level of Care Code 04574 SUB INP/OBS CARE 2/35MIN Diagnoses Confusion and disorientation R41.0
[2023-01-17] MEDS: POTASSIUM CHLORIDE CRTAB 20 MEQ TABCR PO SCH (21:03)
[2023-01-18] MEDS: PARoxetine HCL 20 MG TAB PO SCH ×2 (00:30→21:18)
[2023-01-18] MEDS: VALSARTAN/SACUBITRIL 26/24MG TAB PO SCH ×3 (00:30→21:17)
[2023-01-18] MEDS: DONEPEZIL HCL 5 MG TAB PO SCH ×2 (00:30→21:18)
[2023-01-18] MEDS: cefTRIAXone SODIUM 2,000 MG in DEXTROSE 5% 50 ML IV SCH (05:02)
[2023-01-18] MEDS: HEPARIN SOD 5,000 UNIT/0.5 ML VIAL SQ SCH ×3 (05:47→21:18)
[2023-01-18] MEDS: POTASSIUM CHLORIDE CRTAB 20 MEQ TABCR PO SCH ×2 (09:04→21:21)
[2023-01-18] MEDS: ROSUVASTATIN CALCIUM 20 MG TAB PO SCH (09:04)
[2023-01-18] MEDS: INSULIN ASPART PER UNIT CHARGE SC SCH ×4 (09:28→21:17)
--- NOTE | 2023-01-18 14:34 | Hospitalist Progress Note ---
Date of Service January 18, 2023 Assessment & Plan (1) Confusion and disorientation: Plan: acute metabolic encephalopathy, UTI poa, E coli and Klebsiella. Both are sensitive to Augmentin on iv ceftriaxone , sensitive will de escalate to oral medication chronic encephalomalacia noted on MRI with multiple chronic infarcts. normal EEG Sees Dr Culp for Dementia. Plan Hypertension/CHF/hypomagnesemia- due to altered metation and aspiration risk , Hold amlodipine, and spironolactone restarted enteresto and restart lasix at discharge Hypomagnesemia, replete Acute left renal infarct-moderate risk, history of CKD 3 4.0 x 5.[address] Renal artery ultrasound with no significant change consult urology recommend supportive care Aspirin 81 mg daily, sent hypercoag panel except for antithrombin III as is no sc heparin Admission and Anticipated Discharge Date Admission Date: January 14, 2023 Subjective Patient is alert and oriented x3 she has mild forgetfulness. I spoke to her son who endorses this is her typical mental state. He however is unable to come transport the patient or care for her the evening hours of the but will be able to come discharge early in the morning hours of the . Physical Exam Physical Exam: pt is pleasant cardiac is regular lungs are clear Alert and oriented x3 today Results & Data Results & Data Vital Signs (Past 12 Hours) Vital Signs Temp Pulse Resp BP Pulse Ox O2 Del Method 01/18/23 08:24 97.9 F 67 18 101/63 96 Room Air Laboratory Results Reviewed microbiology sensitivities Reviewed [id number] glucose Spoke to patient's son about disposition PG Care Time/CCT Total # of Minutes Spent Total Time Spent with Patient: Total time spent is greater than 50% in coordination of care (as documented) at patient's floor/unit and/or counseling patient: Coding Level of Care Code 26687 SUB INP/OBS CARE 2/35MIN Diagnoses Confusion and disorientation R41.0
[2023-01-19] MEDS: cefTRIAXone SODIUM 2,000 MG in DEXTROSE 5% 50 ML IV SCH (05:47)
[2023-01-19] MEDS: HEPARIN SOD 5,000 UNIT/0.5 ML VIAL SQ SCH (05:48)
[2023-01-19] MEDS ORDERED: ASPIRIN 81 MG ECTAB PO SCH (09:00)
[2023-01-19] MEDS: INSULIN ASPART PER UNIT CHARGE SC SCH (09:44)
[2023-01-19] MEDS: VALSARTAN/SACUBITRIL 26/24MG TAB PO SCH (09:45)
[2023-01-19] MEDS: ROSUVASTATIN CALCIUM 20 MG TAB PO SCH (09:45)
--- NOTE | 2023-01-19 14:58 | Discharge Summary ---
Date of Service January 19, 2023 Admission HPI Per Admitting Provider The patient is a 77-year-old female with a past medical history significant for hypertension, hypercholesterolemia, dementia, CHF, diabetes mellitus, GERD, bladder spasm, depression, and hyperlipidemia. She presents to the emergency department as noted above. Significant abnormal laboratories: WBC 10.01, glucose 191, magnesium 1.2. COVID-19, influenza AMB, and RSV testing all negative CTA of chest was negative for PE, but did show a [address] scan of abdomen and pelvis with contrast showed a moderate-sized acute left renal infarct measuring 4.0 x 5.8 cm While in the ED, patient did appear to have some possible seizure-like activity suggesting a possible focal seizure involving right upper extremity, for which she was given Keppra 1000 mg IV empirically, and MRI brain was ordered along with EEG Principal Diagnosis Metabolic encephalopathy from gram-negative urinary tract infection present on admission Splenic infarction, self-limited Discharge Exam Patient awake alert appropriate we will go home with her son, no distress no significant discomfort from splenic infarct Discharge Data Allergies Allergy/AdvReac Type Severity Reaction Status Date / Time aspirin Allergy Severe Hives Verified 06/17/22 14:14 NSAIDS (Non-Steroidal Allergy Intermediate Hives Verified 06/17/22 14:14 Anti-Inflamma Consultations 01/15/23 01:13 ED Decision to Admit Stat 01/16/23 07:47 Consult Urology Routine 01/18/23 14:20 Consult [facility] [employer] supervisor Routine Ordered Studies 01/14/23 17:12 CT abd pelvis IV con only Stat 01/14/23 17:13 CT angio chest PE protocol Stat CT head/brain wo con Stat 01/14/23 21:37 US duplex renal artery Urgent 01/15/23 11:22 MR brain wo con Routine Hospital Course (1) Confusion and disorientation: acute metabolic encephalopathy, UTI poa, E coli and Klebsiella. Both are sensitive to Augmentin on iv ceftriaxone , sensitive will de escalate to Augmentin at time of discharge chronic encephalomalacia noted on MRI with multiple chronic infarcts. normal EEG Sees Dr Culp for Dementia. Plan Hypertension/CHF/hypomagnesemia- due to altered metation and aspiration risk , Hold amlodipine, and spironolactone restarted enteresto and restart lasix at discharge Hypomagnesemia, replete Acute left renal infarct-moderate risk, history of CKD 3 4.0 x 5.[address] Renal artery ultrasound with no significant change consult urology recommend supportive care Aspirin 81 mg daily, sent hypercoag panel except for antithrombin III as was on sc heparin Total Time Total Time Spent Total Time Spent (In Minutes): It required greater than 30 minutes to prepare this patient for discharge Discharge Plan Discharge Items Patient Disposition: Home - Self-Care Reason For Visit: ALTERED MENTAL STATUS Discharge Diagnosis: confusion from infection Activity: Per Instructions section Non-emergency contact: Primary Care Provider Call non-emergency contact if: your symptoms worsen Follow-up/Referrals: Rusty Enriquez MD [Primary Care Provider] - Diet: Carb Consistent or DM2 Addtl Attending Provider Instructions: Your mom should be covered with antibiotics until Friday the . I [facility] at [facility] and they will be glad to repack at her typical pill packs if you bring in her discharge paperwork and her home pill packs on Friday they will be able to prepackaged things and get her her medications that she needs as they have limited hours on Friday. If need be your mom may take her morning pill packs on Friday and then you someone can take the remainder of her medicines down and be repacked resume in the afternoon After speaking to Mrs. Roman son requests were made to have her establish care in the [facility] any system particularly interested in Dr. Bonifacio Ibanez will make attempts to do this with our nurse navigator you should be receiving a phone call early the week with an upcoming appointment for hospital discharge Pending Studies at Discharge: No Stand-Alone Forms: My [facility] [employer], Smoking Cessation Medications and DC Order Prescriptions: New amoxicillin-pot clavulanate 875-125 mg tablet 1 tab PO BID Qty: 10 0RF aspirin 81 mg capsule 81 mg PO DAILY Qty: 30 0RF Continued (DME) BD Eclipse Luer-Andrei 3 mL 25 x 5/8" syringe See Rx Instructions .Route Qty: 8 0RF Rx Instructions: As directed for use with B12 injections donepezil 5 mg tablet 5 mg PO HS Qty: 30 5RF carvedilol 3.125 mg tablet 3.125 mg PO BID Rx Instructions: must administer with a meal/food Entresto 24-26 mg tablet 1 tab PO BID paroxetine HCl 20 mg tablet 20 mg PO HS rosuvastatin 20 mg tablet 20 mg PO DAILY nystatin 100,000 unit/gram powder 1 applic TOPICAL UD cholestyramine-aspartame [Cholestyramine Light] 4 gram powder in packet 1 ea PO DAILY potassium chloride 20 mEq tablet,ER particles/crystals 40 meq PO BID furosemide 80 mg tablet 80 mg PO DAILY metformin 1,000 mg tablet 1,000 mg PO BID omeprazole 20 mg capsule,delayed release(DR/EC) 40 mg PO DAILY ergocalciferol (vitamin D2) [Vitamin D2] 1,250 mcg (50,000 unit) capsule 1,250 mcg PO WK Discontinued diazepam [Valium] 5 mg tablet 5 mg PO .COMPLEX PRN (Reason: anxiety) Qty: 2 0RF Rx Instructions: 5 mg PO 1 hour prior to MRI, may repeat at time of MRI if needed PRN; amlodipine 5 mg tablet 5 mg PO DAILY oxybutynin chloride 5 mg tablet extended release 24 hr 5 mg PO HS spironolactone 25 mg tablet 25 mg PO DAILY Discharge Orders: Discharge Order (Routine); Ordered 01/19/23 Ordered By: Donnell Mace/Other Patient Handouts: Managing Type 2 Diabetes Admission Data Admit Date/Time: 01/14/23 21:34 Attending Provider: Donnell Booker Admit Provider: Jon Eagle Primary Care Provider: Rusty Enriquez Other Providers: Jon Eagle ; Miguel Reeder ; Milad Ferraro ; Russel Perez ; Shi Don ; Ko Aldana ; Kim Harrison ; Aurora Melgar ; Justo Shelley ; Beau Tejada ; Peggy Lainez ; Donnell Gilbert ; Joel Cerrato Other Interventions: Discharge Summary Assessment (RN) Last Done: 01/19/23 11:00 Coding Level of Care Code 15220 INP/OBS DISCH >30 MIN Diagnoses Confusion and disorientation R41.0
[2023-01-24] MEDS ORDERED: ERGOCALCIFEROL 50,000 UNITS 1250 MCG CAP PO SCH (09:00)
== END 2023-01-19 11:31 | disposition home health service (06) | DRG 689 ==
LOC: ED 16:42 → SUATTDRO 21:34 → 2S 21:34 → 3N 01-18 00:12

== ENCOUNTER 2023-01-23 14:57 | Inpatient (IN) ==
[2023-01-23] MEDS ORDERED: SODIUM CHLORIDE 0.9% 1000ML 1,000 ML IV SCH (15:00)
[2023-01-23] MEDS ORDERED: Patient's HEIGHT &/or WEIGHT Needed STA (15:07)
[2023-01-23] MEDS ORDERED: cefTRIAXone SODIUM 2,000 MG/70 ML BAG IV ONE (15:15)
[2023-01-23] MEDS ORDERED: VANCOMYCIN HCL 2,000 MG in SODIUM CHLORIDE 0.9% 500 ML IV ONE (15:15)
--- NOTE | 2023-01-23 15:33 | XRay Report ---
SINGLE VIEW CHEST CLINICAL HISTORY: Sepsis. FINDINGS: An AP, portable, upright chest radiograph is compared to chest x-ray and chest CT dated 01/04. The heart is mildly enlarged noting atherosclerotic calcification of the thoracic aorta. Clinical Abstractor jorden interstitial thickening similar to previous. There is bibasilar scarring/atelectasis. No airspace consolidation or large pleural effusion is identified. No pneumothorax is seen. Skeletal structures are osteopenic. The bony thorax is grossly intact. IMPRESSION: Mild cardiomegaly with no acute cardiopulmonary abnormality identified. ACT 112: Negative or not required by law. Electronically signed by: Karri Salas M.D. 01/23/2023 3:31 PM
[2023-01-23 15:37] LABS: Basophils # (auto) 0.07 K/uL (0-0.2); Eosinophils # (auto) 0.28 K/uL (0-0.50); Hematocrit (blood only) 42.4 % (37.0-47.0); Hemoglobin 14.1 g/dl (12.0-16.0); Immature Granulocytes # (auto) 0.03 K/uL (0.01-0.20); Immature Granulocytes % (auto) 0.4 %; Lymphocytes # (auto) 2.34 K/uL (1.2-3.4); Lymphocytes % (auto) 33.4 %; Mean Corpuscular Hgb Conc 33.3 g/dL (32.0-36.0); Mean Corpuscular Volume 93.2 fL (80.0-100.0); Mean Platelet Volume 9.7 fL (9.4-12.4); Monocytes # (auto) 0.89 K/uL (0.11-0.59); Monocytes % (auto) 12.7 %; Neutrophils % (auto) 48.5 %; Platelet Count 307 K/uL (130-400); RDW Coefficient of Variation 13.9 % (11.5-14.5); RDW Standard Deviation 46.8 fL (36.4-46.3); Red Blood Count 4.55 M/uL (4.20-5.40); White Blood Count 7.01 K/ul (4.8-10.8)
[2023-01-23 15:59] LABS: Anion Gap 11 (3-11); Bilirubin Direct 0.1 mg/dl (0-0.2); Bilirubin,Total 0.7 mg/dl (0.2-1.0); Carbon Dioxide 21 mmol/L (21-32); Chloride 104 mmol/L (98-107); Magnesium 1.7 mg/dl (1.7-2.4); Potassium 4.9 mmol/L (3.5-5.1); Sodium 136 mmol/L (136-145)
[2023-01-23 16:04] LABS: Appearance Urine Clear (Clear); Bilirubin Urine Negative (Negative); Blood Urine Negative (Negative); Color Urine Yellow; Glucose Urine UA Negative (Negative); Ketones Urine Negative (Negative); Leukocyte Esterase Urine Negative (Negative); Nitrite Urine Negative (Negative); Protein Urine Negative (Negative); Urobilinogen Urine Negative (Negative)
[2023-01-23 16:05] LABS: Alanine Aminotransferase 17 U/L (7-52); Alkaline Phosphatase 54 U/L (34-104); Aspartate Aminotransferase 19 U/L (13-39); BUN Creatinine Ratio 12.7 (10-20); Blood Urea Nitrogen 27 mg/dl (6-23); Est GFR (African American) 24.9 ml/min; Est GFR (Non-African American) 21.5 ml/min; Glucose 177 mg/dl (70-99(Fasting)); Total Protein 7.2 gm/dl (6.0-8.3)
--- NOTE | 2023-01-23 16:05 | CT Scan Report ---
CT head/brain wo con CLINICAL HISTORY: 77 years-old Female with change in mental status. Acutely altered mental status TECHNIQUE: Multiple axial CT images of the head were obtained without contrast. A dose lowering tech nique was utilized adhering to the principles of ALARA. CT DOSE: 638.56 mGycm COMPARISON: None. FINDINGS: No acute intracranial hemorrhage, midline shift, intracranial mass, hydrocephalus, territorial ischem ia or abnormal extra-axial collection. Involutional changes with white matter hypodensities suggestiv e of chronic microvascular ischemic disease. 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 Additional tiny chronic infarcts of the right cerebellum. Th e calvarium is intact. The paranasal sinuses, mastoid air cells, and middle ear cavities are clear. IMPRESSION: 1. No acute intracranial abnormality. 2. Chronic findings as above. ACT 112: Negative or not required by law. The above report was generated using voice recognition software. It may contain grammatical, syntax o r spelling errors. Electronically signed by: Noah Fletcher M.D. 01/23/2023 4:03 PM
[2023-01-23] MEDS ORDERED: SODIUM CHLORIDE 0.9% 1000ML 1,000 ML IV ONE (16:35)
--- NOTE | 2023-01-23 17:31 | History & Physical Report ---
Date of Service January 23, 2023 Assessment & Plan (1) AMS (altered mental status): Plan: Suspect due to hypotension as below (2) Hypotension: Plan: Unclear why she is needing significantly less anti-hypertensives than historically given but suspect acute deterioration from SKY after Lasix and carvedilol restarted after discharge last admission. Possibly needing decreased anti-hypertensives due to recent UTI although current UA without current infection (will complete additional day of ceftriaxone to complete course of antibiotics) and no other source of infection and low suspicion of sepsis given normal procalcitonin, WBC and UA. Will complete course of antibiotics with ceftriaxone from last admission. Unclear history of CHF for which she takes Entresto, Lasix and carvedilol - no prior hospitalizations for this known to daughter. No pulmonary edema on CXR/CT. Prior normal echocardiogram in 2019 Continue carvedilol with hold parameters to avoid rebound tachycardia but stop all other antihypertensives at this time. (3) SKY (acute kidney injury): Plan: Suspect pre-renal due to hypotension NSS 1L bolus given in ER. Will defer further fluids and encourage oral intake given Hx CHF and main treatment of holding her antihypertensives Repeat BMP in AM (4) Leg swelling: Plan: Less likely CHF, suspect more likely just decreased movement and deconditioning. Monitor closely with stopping Lasix. US venous doppler to r/o DVT (5) Dementia: Plan: Continue donepezil (6) Gait apraxia: Plan: PT/OT (7) Diabetes: Plan: HbA1C 7.9 [01/15], no need to repeat. Hold metformin while in SKY Novolog: --Goal BSG Range: Low 110 mg/dL, High 140 mg/dL --Correction Factor: 45 mg/dL/unit No carb coverage --BSGs ACHS if eating, q6h if npo (8) CHF (congestive heart failure): Plan: HIM request for prior cardiology notes Continue carvedilol but holding other medications as above (9) Infarction of kidney: Plan: Noted last admission. Suspect asymptomatic as no current flank pain. Hypercoagulable workup pending from PCP Continue ASA Monitor on telemetry for a. fib Plan VTE Prophylaxis - heparin 5000 units BID Diet - T2DM Disposition - admit med/tele Admission and Anticipated Discharge Date Admission Date: January 23, 2023 History of Present Illness Chief Complaint: Altered mental state Primary Care Provider: Bonifacio Ibanez DO Deanna Mccormack is a 77 year old female with dementia who presents to the ER with generalized weakness and increased insomnia. Unable to get any significant history from patient due to altered mental state. She denies any currently pain. Her daughter at bedside provides history. She was hospitalized from January 14 - 2022 due to altered mental status and diagnosed with UTI and hypotension. She was treated with IV ceftriaxone during admission and discharged on Augmentin. All her BP medication was initially stopped during the hospitalization however her Entresto was able to be restarted. On discharge her BP was 96/60 and she was restarted on her Lasix and carvedilol which she was not receiving while in hospital. Amlodipine and spironolactone were discontinued. One episode of diarrhea yesterday. After recent discharge she was initially doing well at home without any dizziness. However over the last few days she has increasingly become more weak at home and sleeping more often. She has more longstanding problems which were ongoing prior to her last admission with leg swelling and sensitivity. She was due to have an outpatient EMG but was unable to tolerate that test. Currently they are similar to her last admission but the worst they have been. She has also been more short of breath on exertion which was worked up with a cardiac catheterization on January 13 and reportedly unremarkable per her daughters recollection. She has no known lung disease and this is stable since her last admission when she had a normal CT for PE. Allergies Allergy/AdvReac Type Severity Reaction Status Date / Time aspirin Allergy Severe Hives Verified 01/23/23 13:48 NSAIDS (Non-Steroidal Allergy Intermediate Hives Verified 01/23/23 13:48 Anti-Inflamma Home Medications Medication Instructions Recorded Confirmed Type carvedilol 3.125 mg tablet 3.125 mg PO BID 01/29/22 01/23/23 History paroxetine HCl 20 mg tablet 20 mg PO HS 01/29/22 01/23/23 History rosuvastatin 20 mg tablet 20 mg PO DAILY 01/29/22 01/23/23 History sacubitril 24 mg-valsartan 26 mg 1 tab PO BID 01/29/22 01/23/23 History tablet (Entresto) syringe with needle 3 mL 25 x 5/8" #8 ea 02/04/22 01/23/23 Rx (BD Eclipse Luer-Andrei) donepezil 5 mg tablet 5 mg PO HS #30 tabs 01/06/23 01/23/23 Rx cholestyramine-aspartame 4 gram 1 ea PO DAILY 01/14/23 01/23/23 History oral powder for susp in a packet (Cholestyramine Light) ergocalciferol (vitamin D2) 1,250 1,250 mcg PO WK 01/14/23 01/23/23 History mcg (50,000 unit) capsule (Vitamin D2) furosemide 80 mg tablet 80 mg PO DAILY 01/14/23 01/23/23 History metformin 1,000 mg tablet 1,000 mg PO BID 01/14/23 01/23/23 History nystatin 100,000 unit/gram topical 1 applic topical UD 01/14/23 01/23/23 History powder omeprazole 20 mg capsule,delayed 40 mg PO DAILY 01/14/23 01/23/23 History release potassium chloride 20 mEq 40 meq PO BID 01/14/23 01/23/23 History tablet,extended release(part/cryst) amoxicillin 875 mg-potassium 1 tab PO BID #10 tabs 01/18/23 01/23/23 Rx clavulanate 125 mg tablet aspirin 81 mg capsule 81 mg PO DAILY #30 caps 01/19/23 01/23/23 Rx 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 Daughter, Ary, takes care of patient. Home health. Other Information That Helps Us Care for You: No Feels Safe at Home: Yes Safety Concerns: Feels Safe At This Time Assistive Devices: Cane, Denture - Upper, Denture - Lower, Glasses and Walker Review of Systems Review of Systems: Unobtainable due to cognitive status Physical Exam Constitutional: well developed; + not well nourished and no acute distress Eyes: PERRL, conjunctivae normal, anicteric sclerae ENMT: external ear and nose normal, oropharynx normal Neck: trachea midline, no thyromegaly Respiratory: normal respiratory effort, lungs clear to auscultation Cardiovascular: Rate/Rhythm: regular rate and regular rhythm Heart Sounds: no murmur Extremities: normal capillary refill, + calf tenderness (b/l on light touch) and + pedal edema (trace b/l equal) Gastrointestinal (Abdomen): normal bowel sounds, soft, nontender, no hepatosplenomegaly Musculoskeletal: no cyanosis or clubbing, extremities motor strength 5/5 Skin: no rashes, warm and dry Neurologic: moves all extremities, awake and + confused; no focal motor deficits Psychiatric: Orientation: alert and oriented to person; + not oriented to place and + not oriented to time Results & Data Results & Data Vital Signs (Past 12 Hours) Vital Signs Temp Pulse Pulse Resp BP BP Pulse Ox 01/23/23 16:55 94 H 20 109/59 L 98 01/23/23 16:55 89 20 98 01/23/23 15:22 88 22 116/63 95 01/23/23 15:08 91 H 01/23/23 15:14 36.4 C L 97 H 20 96/63 L 95 O2 Del Method 01/23/23 16:55 Room Air 01/23/23 16:55 Room Air 01/23/23 15:22 Room Air 01/23/23 15:08 01/23/23 15:14 Room Air Laboratory Results Abnormal lab results 01/23/23 01/23/23 01/23/23 Range/Units 15:08 15:08 15:08 RDW Std Deviation 46.8 H (36.4-46.3) fL Kane # (Auto) 0.89 H (0.11-0.59) K/uL BUN 27 H (6-23) mg/dl Creatinine 2.13 H (0.6-1.2) mg/dl Glucose 177 H (70-99(Fasting)) mg/dl Lactate 3.8 H* (0.4-2.0) mmol/L 01/23/23 Range/Units 17:04 RDW Std Deviation (36.4-46.3) fL Kane # (Auto) (0.11-0.59) K/uL BUN (6-23) mg/dl Creatinine (0.6-1.2) mg/dl Glucose (70-99(Fasting)) mg/dl Lactate 3.4 H* (0.4-2.0) mmol/L Diagnostic Findings CT head/brain wo con CLINICAL HISTORY: 77 years-old Female with change in mental status. Acutely altered mental status TECHNIQUE: Multiple axial CT images of the head were obtained without contrast. A dose lowering technique was utilized adhering to the principles of ALARA. CT DOSE: 638.56 mGycm COMPARISON: None. FINDINGS: No acute intracranial hemorrhage, midline shift, intracranial mass, hydrocephalus, territorial ischemia or abnormal extra-axial collection. Involutional changes with white matter hypodensities suggestive of chronic microvascular ischemic disease. 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 Additional tiny chronic infarcts of the right cerebellum. The calvarium is intact. The paranasal sinuses, mastoid air cells, and middle ear cavities are clear. IMPRESSION: 1. No acute intracranial abnormality. 2. Chronic findings as above. SINGLE VIEW CHEST CLINICAL HISTORY: Sepsis. FINDINGS: An AP, portable, upright chest radiograph is compared to chest x-ray and chest CT dated 01/14/2023. The heart is mildly enlarged noting atherosclerotic calcification of the thoracic aorta. Chronic interstitial thickening similar to previous. There is bibasilar scarring/atelectasis. No airspace consolidation or large pleural effusion is identified. No pneumothorax is seen. Skeletal structures are osteopenic. The bony thorax is grossly intact. IMPRESSION: Mild cardiomegaly with no acute cardiopulmonary abnormality id entified. Medications Administered ER Medications Given: NSS 1L bolus Ceftriaxone 2g IV Vancomycin 2g IV NSS 1L bolus ECG Rate (beats per minute): 90 Rhythm: normal sinus Findings: + LBBB Comparison ECG Date: from (January 14, 2023) Change: the following changes noted (PACs no longer present, TWI evident in lateral leads) Code Status & VTE Plan Code Status Full as discussed with her daughter at bedside VTE Prophylaxis Plan VTE Prophylaxis will be ordered: Yes PG Care Time/CCT Total # of Minutes Spent Total Time Spent with Patient: Total time spent is greater than 50% in coordination of care (as documented) at patient's floor/unit and/or counseling patient: Coding Level of Care Code 19822 INT INP/OBS CARE MIN Diagnoses AMS (altered mental status) R41.82 Hypotension I95.9 SKY (acute kidney injury) N17.9 Leg swelling M79.89 Dementia F03.90 Gait apraxia R48.2 Diabetes E11.9 CHF (congestive heart failure) I50.9 Infarction of kidney N28.0
--- NOTE | 2023-01-23 18:30 | Ultrasound Report ---
BILATERAL LOWER EXTREMITY VENOUS DOPPLER HISTORY: Acute pain and swelling of the lower legs pain, swollen legs COMPARISON STUDY: None. FINDINGS: There is normal compressibility, flow, and augmentation within the bilateral lower extremit y deep venous systems. IMPRESSION: No DVT within the right or left lower extremity. ACT 112: Negative or not required by law. Electronically signed by: Noah Fletcher M.D. 01/23/2023 6:29 PM
[2023-01-23 20:06] LABS: Creatine Kinase 26 U/L (26-192)
[2023-01-23] MEDS ORDERED: GLUCOSE 40% GEL 15 GM TUBE PO PRN (20:59)
[2023-01-23] MEDS ORDERED: ACETAMINOPHEN 325 MG TAB PO PRN (20:59)
[2023-01-23] MEDS ORDERED: ONDANSETRON INJ 2 MG/ML 2 ML VIAL IV PRN (20:59)
[2023-01-23] MEDS ORDERED: CARBOHYDRATES FOR HYPOGLYCEMIA PO PRN (20:59)
[2023-01-23] MEDS ORDERED: PHARMACY GLYCEMIC MGMT CONSULT PRN (20:59)
[2023-01-23] MEDS ORDERED: DEXTROSE 50% 50 ML SYRINGE IV PRN (20:59)
[2023-01-23] MEDS ORDERED: GLUCAGON FOR INJ 1 MG VIAL SQ PRN (20:59)
[2023-01-23] MEDS ORDERED: GLUCOSE 10 TAB/TUBE PO PRN (20:59)
--- NOTE | 2023-01-23 21:38 | Emergency Department Note ---
Impression & Plan AMS (altered mental status), Acute hypotension, Elevated lactic acid level ED Provider Note INFORMANT: Patient, primary physician Dr. Ibanez, and daughter ED PROVIDER(S): Tai Rose MD CHIEF COMPLAINT: Lethargy/altered mental status PLAN: Disposition: admitted Condition: Good Outpatient prescription management: none Referral: None MEDICAL DECISION MAKING: Patient presented because of hypotension. She also had tachycardia. The patient's blood pressure was mildly low in the ER. IV fluid resuscitation was administered. Given her recent history of infection empiric antibiotics were also administered after discussion with ED pharmacist. Patient was found to h ave an elevated lactate. Remainder of blood work was unremarkable. Chest x-ray and head CT negative. Urinalysis did not reveal any signs of infection by catheter specimen. On reassessment the patient blood pressure improved and her mental status improved. Patient will need further management in the hospital. [facility] Dr[facility]. Case was discussed and diagnostics were reviewed. Patient was evaluated in the ER and admitted for further management. Discussed with integrity manager After review of the information above and other included data, I feel the patient requires admission. Triage Nursing notes reviewed and agree them. Vital Signs: reviewed and remarkable for hypotension Prior /Outside records reviewed: Prior culture results reviewed. Patient had had a mildly resistant Klebsiella and E. coli. Sensitive to cefepime. Differential diagnosis: Infection, hypoglycemia, electrolyte abnormalities, overdose, toxicologic, cardiac sources, intracerebral event, neurologic, trauma, as well as other pathologies. Diagnostics, as interpreted by me: ECG: Twelve-lead ECG reveals a normal sinus rhythm at 90 bpm. Left bundle branch block. No criteria for acute ischemia. Cardiac Monitoring: Cardiac monitoring ordered by me: The patient was placed on continuous cardiac monitoring and observed. It revealed a normal sinus rhythm at 82 beats per minute without ectopy or evidence of dysrhythmia. Medical decision rules: none Imaging studies: Head CT: A noncontrast CT scan of the head was performed and was negative for tumor, fracture, intracranial hemorrhage, or other acute pathology. Chest x-ray. Findings: A chest x-ray was performed and revealed no pneumothorax, effusion, infiltrate, pulmonary edema, free air under the diaphragm, or wide mediastinum. Impression: No acute disease. HPI: The patient is a 77year old female who presents to the Emergency Room with complaints of altered mental status. This started over the last few days and is worsening today. Patient was recently admitted and treated for a UTI. The patient was doing well the few days after discharge but then over the last couple days things seem to worsen again. She was at Dr. Ibanez's office today for a follow-up and she had low blood pressure and was somewhat confused. EMS was summoned and the patient was brought to the ER for evaluation. The patient also notes the following associated symptoms, fatigue. The patient has no medication relieving factors. Current pain is rated as 0/10. Pt denies LOC, headache, fevers, chills, diaphoresis, visual changes, neck pain, chest pain, breathing difficulties, nausea, vomiting, abdominal pain, back pain, melena, hematochezia, new urinary symptoms, numbness, focal weakness, lymphadenopathy, rash, or other complaints. PAST MEDICAL HISTORY: See Below, UTI, hypertension, diabetes PAST SURGICAL HISTORY: See Below, SOCIAL HISTORY: See Below, retired HOME MEDICATIONS: See Below ALLERGIES: See Below VITALS: See Below PHYSICAL EXAMINATION: GENERAL: Awake, alert, very tired-appearing, in no distress HENT: Normocephalic, atraumatic. Oropharynx unremarkable. EYES: Normal conjunctiva. Sclera non-icteric. NECK: Inspection normal. Non-tender. Supple. No nuchal rigidity. FROM. No masses. RESPIRATORY: Clear to auscultation. No wheezes. No rales. Normal respiratory effort. CARDIAC: Normal rate. Normal rhythm. No murmurs. No rubs. Extremities warm and well perfused. Pulses equal. No JVD. GI: Soft, non-distended. No tenderness to palpation. No rebound or guarding. No masses. RECTAL: Deferred. MUSCULOSKELETAL: Atraumatic. Chest examination reveals no tenderness. The back is symmetrical on inspection without obvious abnormality. There is no CVA tenderness to palpation. No joint edema. LOWER EXTREMITIES: Calves are equal size bilaterally and non-tender. N 1+ o edema. No discoloration. NEURO: Mildly altered sensorium. Generally weak. No focal sensory or motor deficits noted. Able to answer questions but with limited detail. Speech soft. Not slurred. SKIN: No rash or jaundice noted. 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 DaughterAry, takes care of patient. Home health. Other Information That Helps Us Care for You: No Feels Safe at Home: Yes Safety Concerns: Feels Safe At This Time Assistive Devices: Cane, Denture - Upper, Denture - Lower, Glasses and Walker Allergies Allergies Allergy/AdvReac Type Severity Reaction Status Date / Time aspirin Allergy Severe Hives Verified 01/23/23 13:48 NSAIDS (Non-Steroidal Allergy Intermediate Hives Verified 01/23/23 13:48 Anti-Inflamma Home Meds Home Medications Medication Instructions Recorded Confirmed carvedilol 3.125 mg tablet 3.125 mg PO BID 01/29/22 01/23/23 paroxetine HCl 20 mg tablet 20 mg PO HS 01/29/22 01/23/23 rosuvastatin 20 mg tablet 20 mg PO DAILY 01/29/22 01/23/23 sacubitril 24 mg-valsartan 26 mg 1 tab PO BID 01/29/22 01/23/23 tablet (Entresto) cholestyramine-aspartame 4 gram 1 ea PO DAILY 01/14/23 01/23/23 oral powder for susp in a packet (Cholestyramine Light) ergocalciferol (vitamin D2) 1,250 1,250 mcg PO WK 01/14/23 01/23/23 mcg (50,000 unit) capsule (Vitamin D2) furosemide 80 mg tablet 80 mg PO DAILY 01/14/23 01/23/23 metformin 1,000 mg tablet 1,000 mg PO BID 01/14/23 01/23/23 nystatin 100,000 unit/gram topical 1 applic topical UD 01/14/23 01/23/23 powder omeprazole 20 mg capsule,delayed 40 mg PO DAILY 01/14/23 01/23/23 release potassium chloride 20 mEq 40 meq PO BID 01/14/23 01/23/23 tablet,extended release(part/cryst) Previous Rx's Medication Instructions Recorded syringe with needle 3 mL 25 x 5/8" #8 ea 02/04/22 (BD Eclipse Luer-Andrei) donepezil 5 mg tablet 5 mg PO HS #30 tabs 01/06/23 amoxicillin 875 mg-potassium 1 tab PO BID #10 tabs 01/18/23 clavulanate 125 mg tablet aspirin 81 mg capsule 81 mg PO DAILY #30 caps 01/19/23 Results & Data (ED) Vital Signs Vital Signs - 24 hr 01/23/23 15:14 01/23/23 15:08 01/23/23 15:22 Temperature 36.4 C L Temperature Source Oral Pulse Rate 97 H 91 H Pulse Rate [Apical] 88 Pulse Rate from SpO2 Sensor Respiratory Rate 20 22 Respiratory Effort / Characteristics Non-Labored Non-Labored Spontaneous Respiratory Depth Normal Normal Respiratory Pattern Regular Blood Pressure 96/63 L Blood Pressure [Right Arm] 116/63 Blood Pressure Mean 74 Blood Pressure Mean [Right Arm] 80 Blood Pressure Position [Right Arm] Sitting Pulse Oximetry 95 95 Oxygen Delivery Method Room Air Room Air Sepsis Recent Fever Within 48 Hours No Sepsis New/Unexplained Change in Mental Status Yes Sepsis Action Taken by Nursing Physician Notified 01/23/23 16:55 01/23/23 16:55 01/23/23 15:23 Temperature Temperature Source Pulse Rate 89 88 Pulse Rate [Apical] 94 H Pulse Rate from SpO2 Sensor 88 Respiratory Rate 20 20 22 Respiratory Effort / Characteristics Non-Labored Spontaneous Respiratory Depth Normal Respiratory Pattern Blood Pressure 116/63 Blood Pressure [Right Arm] 109/59 L Blood Pressure Mean 80 Blood Pressure Mean [Right Arm] 75 Blood Pressure Position [Right Arm] Sitting Pulse Oximetry 98 98 95 Oxygen Delivery Method Room Air Room Air Sepsis Recent Fever Within 48 Hours Sepsis New/Unexplained Change in Mental Status Sepsis Action Taken by Nursing 01/23/23 15:30 01/23/23 16:30 01/23/23 17:00 Temperature Temperature Source Pulse Rate 86 75 77 Pulse Rate [Apical] Pulse Rate from SpO2 Sensor 84 75 79 Respiratory Rate 24 20 24 Respiratory Effort / Characteristics Respiratory Depth Respiratory Pattern Blood Pressure 117/66 115/51 L Blood Pressure [Right Arm] Blood Pressure Mean 83 72 Blood Pressure Mean [Right Arm] Blood Pressure Position [Right Arm] Pulse Oximetry 87 L 95 98 Oxygen Delivery Method Sepsis Recent Fever Within 48 Hours Sepsis New/Unexplained Change in Mental Status Sepsis Action Taken by Nursing 01/23/23 17:30 Temperature Temperature Source Pulse Rate 73 Pulse Rate [Apical] Pulse Rate from SpO2 Sensor 73 Respiratory Rate 18 Respiratory Effort / Characteristics Respiratory Depth Respiratory Pattern Blood Pressure 118/70 Blood Pressure [Right Arm] Blood Pressure Mean 86 Blood Pressure Mean [Right Arm] Blood Pressure Position [Right Arm] Pulse Oximetry 98 Oxygen Delivery Method Sepsis Recent Fever Within 48 Hours Sepsis New/Unexplained Change in Mental Status Sepsis Action Taken by Nursing Laboratory Data 01/23/23 15:08 01/23/23 15:08 Lab Results 01/23/23 01/23/23 01/23/23 Range/Units 15:08 15:08 15:08 WBC 7.01 (4.8-10.8) K/ul RBC 4.55 (4.20-5.40) M/uL Hgb 14.1 (12.0-16.0) g/dl Hct 42.4 (37.0-47.0) % MCV 93.2 (80.0-100.0) fL MCH 31.0 (25.0-34.0) pg MCHC 33.3 (32.0-36.0) g/dL RDW Std Deviation 46.8 H (36.4-46.3) fL RDW Coeff of Sam 13.9 (11.5-14.5) % Plt Count 307 (130-400) K/uL MPV 9.7 (9.4-12.4) fL Immature Gran % (Auto) 0.4 % Neut % (Auto) 48.5 % Lymph % (Auto) 33.4 % Walsh % (Auto) 12.7 % Eos % (Auto) 4.0 % Baso % (Auto) 1.0 % Neut # (Auto) 3.40 (1.40-6.50) K/uL Lymph # (Auto) 2.34 (1.2-3.4) K/uL Walsh # (Auto) 0.89 H (0.11-0.59) K/uL Eos # (Auto) 0.28 (0-0.50) K/uL Baso # (Auto) 0.07 (0-0.2) K/uL Immature Gran # (Auto) 0.03 (0.01-0.20) K/uL Sodium 136 (136-145) mmol/L Potassium 4.9 (3.5-5.1) mmol/L Chloride 104 (98-107) mmol/L Carbon Dioxide 21 (21-32) mmol/L Anion Gap 11 (3-11) BUN 27 H (6-23) mg/dl Creatinine 2.13 H (0.6-1.2) mg/dl Est Cr Clr Drug Dosing Not Reportable Est GFR ( Amer) 24.9 ml/min Est GFR (Non-Af Amer) 21.5 ml/min BUN/Creatinine Ratio 12.7 (10-20) Glucose 177 H (70-99(Fasting)) mg/dl Lactate 3.8 H* (0.4-2.0) mmol/L Calcium 10.0 (8.6-10.3) mg/dl Magnesium 1.7 (1.7-2.4) mg/dl Total Bilirubin 0.7 (0.2-1.0) mg/dl Direct Bilirubin 0.1 (0-0.2) mg/dl AST 19 (13-39) U/L ALT 17 (7-52) U/L Alkaline Phosphatase 54 (34-104) U/L Total Creatine Kinase 26 (26-192) U/L Troponin I High Sens 12.0 (0-14) pg/ml Total Protein 7.2 (6.0-8.3) gm/dl Albumin 4.0 (3.4-5.0) gm/dl Procalcitonin (0-0.5) ng/ml Random Cortisol mcg/dl Urine Color Urine Appearance (Clear) Urine pH (4.5-7.5) Ur Specific Newton (1.000-1.030) Urine Protein (Negative) Urine Glucose (UA) (Negative) Urine Ketones (Negative) Urine Blood (Negative) Urine Nitrite (Negative) Urine Bilirubin (Negative) Urine Urobilinogen (Negative) Ur Leukocyte Esterase (Negative) 01/23/23 01/23/23 01/23/23 Range/Units 15:08 15:46 17:04 WBC (4.8-10.8) K/ul RBC (4.20-5.40) M/uL Hgb (12.0-16.0) g/dl Hct (37.0-47.0) % MCV (80.0-100.0) fL MCH (25.0-34.0) pg MCHC (32.0-36.0) g/dL RDW Std Deviation (36.4-46.3) fL RDW Coeff of Sam (11.5-14.5) % Plt Count (130-400) K/uL MPV (9.4-12.4) fL Immature Gran % (Auto) % Neut % (Auto) % Lymph % (Auto) % Walsh % (Auto) % Eos % (Auto) % Baso % (Auto) % Neut # (Auto) (1.40-6.50) K/uL Lymph # (Auto) (1.2-3.4) K/uL Walsh # (Auto) (0.11-0.59) K/uL Eos # (Auto) (0-0.50) K/uL Baso # (Auto) (0-0.2) K/uL Immature Gran # (Auto) (0.01-0.20) K/uL Sodium (136-145) mmol/L Potassium (3.5-5.1) mmol/L Chloride (98-107) mmol/L Carbon Dioxide (21-32) mmol/L Anion Gap (3-11) BUN (6-23) mg/dl Creatinine (0.6-1.2) mg/dl Est Cr Clr Drug Dosing Est GFR ( Amer) ml/min Est GFR (Non-Af Amer) ml/min BUN/Creatinine Ratio (10-20) Glucose (70-99(Fasting)) mg/dl Lactate 3.4 H* (0.4-2.0) mmol/L Calcium (8.6-10.3) mg/dl Magnesium (1.7-2.4) mg/dl Total Bilirubin (0.2-1.0) mg/dl Direct Bilirubin (0-0.2) mg/dl AST (13-39) U/L ALT (7-52) U/L Alkaline Phosphatase (34-104) U/L Total Creatine Kinase (26-192) U/L Troponin I High Sens (0-14) pg/ml Total Protein (6.0-8.3) gm/dl Albumin (3.4-5.0) gm/dl Procalcitonin < 0.05 (0-0.5) ng/ml Random Cortisol mcg/dl Urine Color Yellow Urine Appearance Clear (Clear) Urine pH 5.0 (4.5-7.5) Ur Specific Newton 1.010 (1.000-1.030) Urine Protein Negative (Negative) Urine Glucose (UA) Negative (Negative) Urine Ketones Negative (Negative) Urine Blood Negative (Negative) Urine Nitrite Negative (Negative) Urine Bilirubin Negative (Negative) Urine Urobilinogen Negative (Negative) Ur Leukocyte Esterase Negative (Negative) 01/23/23 Range/Units 17:32 WBC (4.8-10.8) K/ul RBC (4.20-5.40) M/uL Hgb (12.0-16.0) g/dl Hct (37.0-47.0) % MCV (80.0-100.0) fL MCH (25.0-34.0) pg MCHC (32.0-36.0) g/dL RDW Std Deviation (36.4-46.3) fL RDW Coeff of Sam (11.5-14.5) % Plt Count (130-400) K/uL MPV (9.4-12.4) fL Immature Gran % (Auto) % Neut % (Auto) % Lymph % (Auto) % Walsh % (Auto) % Eos % (Auto) % Baso % (Auto) % Neut # (Auto) (1.40-6.50) K/uL Lymph # (Auto) (1.2-3.4) K/uL Walsh # (Auto) (0.11-0.59) K/uL Eos # (Auto) (0-0.50) K/uL Baso # (Auto) (0-0.2) K/uL Immature Gran # (Auto) (0.01-0.20) K/uL Sodium (136-145) mmol/L Potassium (3.5-5.1) mmol/L Chloride (98-107) mmol/L Carbon Dioxide (21-32) mmol/L Anion Gap (3-11) BUN (6-23) mg/dl Creatinine (0.6-1.2) mg/dl Est Cr Clr Drug Dosing Est GFR ( Amer) ml/min Est GFR (Non-Af Amer) ml/min BUN/Creatinine Ratio (10-20) Glucose (70-99(Fasting)) mg/dl Lactate (0.4-2.0) mmol/L Calcium (8.6-10.3) mg/dl Magnesium (1.7-2.4) mg/dl Total Bilirubin (0.2-1.0) mg/dl Direct Bilirubin (0-0.2) mg/dl AST (13-39) U/L ALT (7-52) U/L Alkaline Phosphatase (34-104) U/L Total Creatine Kinase (26-192) U/L Troponin I High Sens (0-14) pg/ml Total Protein (6.0-8.3) gm/dl Albumin (3.4-5.0) gm/dl Procalcitonin (0-0.5) ng/ml Random Cortisol 8.52 mcg/dl Urine Color Urine Appearance (Clear) Urine pH (4.5-7.5) Ur Specific Newton (1.000-1.030) Urine Protein (Negative) Urine Glucose (UA) (Negative) Urine Ketones (Negative) Urine Blood (Negative) Urine Nitrite (Negative) Urine Bilirubin (Negative) Urine Urobilinogen (Negative) Ur Leukocyte Esterase (Negative) Administered Medications Discontinued Medications Sodium Chloride (Nss 1000ml) 1,000 mls @ 999 mls/hr IV .Q1H1M [facility] Stop: 01/23/23 16:00 Last Infusion: 01/23/23 17:06 Dose: 0 mls/hr Documented By: Admin: 01/23/23 15:15 Dose: 999 mls/hr Documented By: LINDA Ceftriaxone Sodium (Rocephin) 2,000 mg in 70 mls @ 140 mls/hr IV NOW ONE Stop: 01/23/23 15:44 Last Infusion: 01/23/23 16:00 Dose: 0 mls/hr Documented By: Admin: 01/23/23 15:28 Dose: 140 mls/hr Documented By: DESTINY Vancomycin HCl 2,000 mg/ (Sodium Chloride) 540 mls @ 200 mls/hr IV NOW ONE; Protocol Stop: 01/23/23 17:56 Last Infusion: 01/23/23 16:45 Dose: 200 mls/hr Documented By: Admin: 01/23/23 16:02 Dose: 200 mls/hr Documented By: DESTINY Sodium Chloride (Nss 1000ml) 1,000 mls @ 999 mls/hr IV .Q1H1M ONE Stop: 01/23/23 17:35 Last Infusion: 01/23/23 17:45 Dose: 999 mls/hr Documented By: Admin: 01/23/23 16:57 Dose: 999 mls/hr Documented By: LINDA Imaging Data Radiologist's Impression: Chest X-Ray 01/23/23 14:58 SINGLE VIEW CHEST CLINICAL HISTORY: Sepsis. FINDINGS: An AP, portable, upright chest radiograph is compared to chest x-ray and chest CT dated 01/14/2023. The heart is mildly enlarged noting athe rosclerotic calcification of the thoracic aorta. Chronic interstitial thickening similar to previous. There is bibasilar scarring/atelectasis. No airspace consolidation or large pleural effusion is identified. No pneumothorax is seen. Skeletal structures are osteopenic. The bony thorax is grossly intact. IMPRESSION: Mild cardiomegaly with no acute cardiopulmonary abnormality identified. ACT 112: Negative or not required by law. Electronically signed by: Karri Salas M.D. 01/23/2023 3:[address] 01/23/23 15:17 CT head/brain wo con CLINICAL HISTORY: 77 years-old Female with change in mental status. Acutely altered mental status TECHNIQUE: Multiple axial CT images of the head were obtained without contrast. A dose lowering technique was utilized adhering to the principles of ALARA. CT DOSE: 638.56 mGycm COMPARISON: None. FINDINGS: No acute intracranial hemorrhage, midline shift, intracranial mass, hydrocephalus, territorial ischemia or abnormal extra-axial collection. Involutional changes with white matter hypodensities suggestive of chronic microvascular ischemic disease. 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 Additional tiny chronic infarcts of the right cerebellum. The calvarium is intact. The paranasal sinuses, mastoid air cells, and middle ear cavities are clear. IMPRESSION: 1. No acute intracranial abnormality. 2. Chronic findings as above. ACT 112: Negative or not required by law. The above report was generated using voice recognition software. It may contain grammatical, syntax or spelling errors. Electronically signed by: Noah Fletcher M.D. 01/23/2023 4:03 PM Venous Doppler Study 01/23/23 17:30 BILATERAL LOWER EXTREMITY VENOUS DOPPLER HISTORY: Acute pain and swelling of the lower legs pain, swollen legs COMPARISON STUDY: None. FINDINGS: There is normal compressibility, flow, and augmentation within the bilateral lower extremity deep venous systems. IMPRESSION: No DVT within the right or left lower extremity. ACT 112: Negative or not required by law. Electronically signed by: Noah Fletcher M.D. 01/23/2023 6:29 PM Discharge Plan Visit Data Chief Complaint: Lethargic Stated Complaint: LETHARGIC ED Provider: Tai Rose Discharge Problem: AMS (altered mental status), Acute hypotension, Elevated lactic acid level Patient Disposition: Admitted As Inpatient Discharge Instructions Interventions: ED Discharge Assessment Last Done: 01/23/23 20:32
[2023-01-23] MEDS: DONEPEZIL HCL 5 MG TAB PO SCH (22:43)
[2023-01-23] MEDS: carvediloL 3.125 MG TAB PO SCH (22:43)
[2023-01-23] MEDS: PARoxetine HCL 20 MG TAB PO SCH (22:44)
[2023-01-23] MEDS: NYSTATIN POWDER 15GM BTL EXT SCH (22:44)
[2023-01-23] MEDS: INSULIN ASPART PER UNIT CHARGE SC SCH (22:48)
[2023-01-24 07:34] LABS: Basophils # (auto) 0.07 K/uL (0-0.2); Eosinophils # (auto) 0.34 K/uL (0-0.50); Hematocrit (blood only) 36.9 % (37.0-47.0); Hemoglobin 12.5 g/dl (12.0-16.0); Immature Granulocytes # (auto) 0.02 K/uL (0.01-0.20); Immature Granulocytes % (auto) 0.3 %; Lymphocytes # (auto) 2.57 K/uL (1.2-3.4); Lymphocytes % (auto) 37.8 %; Mean Corpuscular Hemoglobin 30.9 pg (25.0-34.0); Mean Corpuscular Hgb Conc 33.9 g/dL (32.0-36.0); Mean Corpuscular Volume 91.1 fL (80.0-100.0); Mean Platelet Volume 9.6 fL (9.4-12.4); Monocytes # (auto) 1.07 K/uL (0.11-0.59); Monocytes % (auto) 15.7 %; Neutrophils # (auto) 2.73 K/uL (1.40-6.50); Neutrophils % (auto) 40.2 %; Platelet Count 268 K/uL (130-400); RDW Coefficient of Variation 13.6 % (11.5-14.5); RDW Standard Deviation 45.7 fL (36.4-46.3); Red Blood Count 4.05 M/uL (4.20-5.40)
[2023-01-24 07:37] LABS: BUN Creatinine Ratio 13.6 (10-20); Calcium 9.3 mg/dl (8.6-10.3); Creatinine Clr Calc Pharmacy 33.7 ml/min; Est GFR (African American) 34.6 ml/min; Est GFR (Non-African American) 29.9 ml/min; Potassium 3.3 mmol/L (3.5-5.1)
[2023-01-24] MEDS: INSULIN ASPART PER UNIT CHARGE SC SCH ×5 (08:05→20:29)
[2023-01-24] MEDS: LANTUS PER UNIT CHARGE SC SCH ×2 (08:14→20:29)
[2023-01-24] MEDS: HEPARIN SOD 5,000 UNIT/0.5 ML VIAL SQ SCH ×2 (08:16→20:33)
[2023-01-24] MEDS: POTASSIUM CHLORIDE CRTAB 20 MEQ TABCR PO SCH (08:17)
[2023-01-24] MEDS: ASPIRIN 81 MG ECTAB PO SCH (08:17)
[2023-01-24] MEDS: ROSUVASTATIN CALCIUM 20 MG TAB PO SCH (08:17)
[2023-01-24] MEDS: PANTOprazole 40 MG TAB PO SCH (08:17)
[2023-01-24] MEDS: carvediloL 3.125 MG TAB PO SCH ×2 (08:20→20:36)
[2023-01-24] MEDS: NYSTATIN POWDER 15GM BTL EXT SCH ×2 (08:23→20:36)
--- NOTE | 2023-01-24 08:45 | Pharmacy Report ---
Pharmacy Glycemic Short Note 2 - Date of Service January 24, 2023 - Glycemic Short BSG Results (Last 24 hours): 01/23/23 01/23/23 01/24/23 15:08 20:56 07:07 Glucose 177 H 163 H POC Glucose 130 H 01/24/23 07:44 Glucose POC Glucose 152 H OUTPATIENT ANTIDIABETIC REGIMEN: * Metformin 1000 mg PO BIDM HbA1c: 7.9% (01/15/23) ASSESSMENT: * ABI is a 77 year old female who presented to [facility] ED on 01/23 with complaints of generalized weakness and increased insomnia * Patient with dementia, as well as acute altered mental status * Reasonably controlled T2DM with metformin as an outpatient (reasonable goal for patient would be HbA1c < 8% given patient's advanced age and comorbidities). Noted SKY on admission - metformin being held. * Patient did not receive any insulin overnight, fasting BSG is 152 mg/dL this morning * Patient recently hospitalized earlier this month, persistently hyperglycemic during that admission PLAN FOR INPATIENT GLYCEMIC CONTROL: * Hold outpatient oral diabetes medications * Basal insulin * Lantus 10 units SQ qAM * Lantus 0-10 units SC HS (see EHR for details) * Bolus insulin * NovoLog per scale ACHS or Q6hrs while NPO * Goal Range: Low 110 mg/dL - High 140 mg/dL * Correction Factor: 25 mg/dL/unit * Nutritional / Prandial insulin per carb ratio of 1 unit per 8 grams CHO consumed
[2023-01-24] MEDS ORDERED: cefTRIAXone SODIUM 2,000 MG in DEXTROSE 5% 50 ML IV SCH (09:00)
[2023-01-24] MEDS ORDERED: cefTRIAXone SODIUM 2,000 MG/70 ML BAG IV ONE (09:00)
[2023-01-24] MEDS ORDERED: cefTRIAXone SODIUM 2,000 MG in DEXTROSE 5% 70 ML IV SCH (09:00)
[2023-01-24] MEDS: CHOLESTYRAMINE LIGHT 4 GM PKT PO SCH (10:34)
--- NOTE | 2023-01-24 13:15 | Hospitalist Progress Note ---
Date of Service January 24, 2023 Assessment & Plan (1) Acute metabolic encephalopathy: Plan: Most likely secondary to acute renal failure Improved significantly with improvement in renal function Per daughter, the patient was somnolent. Today she is awake, sitting on the bedside recliner, talking. (2) Hypotension: Plan: Unclear why she is needing significantly less anti-hypertensives than his torically given but suspect acute deterioration from SKY after Lasix and carvedilol restarted after discharge last admission. Possibly needing decreased anti-hypertensives due to recent UTI although current UA without current infection (will complete additional day of ceftriaxone to complete course of antibiotics) and no other source of infection and low suspicion of sepsis given normal procalcitonin, WBC and UA. Will complete course of antibiotics with ceftriaxone from last admission. Will discontinue ceftriaxone as she completed the course. Unclear history of CHF for which she takes Entresto, Lasix and carvedilol - no prior hospitalizations for this known to daughter. No pulmonary edema on CXR/CT. Prior normal echocardiogram in 2019 Continue the smallest dose of carvedilol with hold parameters to avoid rebound tachycardia but stop all other antihypertensives at this time. Per daughter, patient did not lose weight significantly recently either that would have explained why she would not be needing antihypertensives. 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 Will defer further fluids and encourage oral intake given Hx CHF and main treatment of holding her antihypertensives Repeat BMP in AM (4) Leg swelling: Plan: Less likely CHF, suspect more likely just decreased movement and deconditioning. Monitor closely with stopping Lasix. US venous doppler negative for DVT (5) Dementia: Plan: Continue donepezil (6) Gait apraxia: Plan: PT/OT (7) Diabetes: Plan: HbA1C 7.9 [01/15], no need to repeat. Hold metformin while in SKY Novolog: --Goal BSG Range: Low 110 mg/dL, High 140 mg/dL --Correction Factor: 45 mg/dL/unit No carb coverage --BSGs ACHS if eating, q6h if npo (8) CHF (congestive heart failure): Plan: HIM request for prior cardiology notes Continue carvedilol but holding other medications as above (9) Infarction of kidney: Plan: Noted last admission. Suspect asymptomatic as no current flank pain. Hypercoagulable workup pending from PCP Continue ASA Monitor on telemetry for a. fib Plan VTE Prophylaxis - heparin 5000 units BID Diet - T2DM Disposition - admit med/tele Admission and Anticipated Discharge Date Admission Date: January 23, 2023 Subjective The patient is not able to provide much history as she is oriented to herself and not oriented to place or time. She has baseline dementia. Spoke to the daughter on the phone who stated that she was very somnolent yesterday. The daughter went to the patient's house to take her to her PCP appointment. But noted that she was still sleeping which was unusual. She had not eaten. She had not done things that she would have normally done by this time of the day. She got concerned and thus brought her to the emergency room. The patient today is sitting in the bedside recliner, awake, talking. Review of Systems Review of Systems: Unobtainable due to cognitive status Physical Exam Physical Exam: General: Awake, conversant, pleasantly confused Heart: S1, S2/regular rate and rhythm, no murmur rubs or gallops Lungs: Clear to auscultation bilaterally. Normal effort Abdomen: Soft/nontender/nondistended. No hepatosplenomegaly Extremities: No clubbing/cyanosis. Puffy legs bilaterally but no pitting edema Behavior: Appropriate, cooperative Results & Data Results & Data Vital Signs (Past 12 Hours) Vital Signs Temp Pulse Pulse Resp BP BP Pulse Ox 01/24/23 11:35 36.8 C 84 20 92/62 L 96 01/24/23 08:01 36.8 C 82 20 96/60 L 93 01/24/23 07:39 86 01/24/23 04:23 36.4 C L 83 18 101/64 93 01/24/23 03:25 37.0 C 91 H 18 86/58 L 93 01/24/23 02:23 O2 Del Method 01/24/23 11:35 Room Air 01/24/23 08:01 Room Air 01/24/23 07:39 01/24/23 04:23 Room Air 01/24/23 03:25 Room Air 01/24/23 02:23 Room Air Laboratory Results Abnormal lab results 01/23/23 01/23/23 01/23/23 Range/Units 15:08 15:08 15:08 RBC (4.20-5.40) M/uL Hct (37.0-47.0) % RDW Std Deviation 46.8 H (36.4-46.3) fL Sibley # (Auto) 0.89 H (0.11-0.59) K/uL Potassium (3.5-5.1) mmol/L BUN 27 H (6-23) mg/dl Creatinine 2.13 H (0.6-1.2) mg/dl Glucose 177 H (70-99(Fasting)) mg/dl POC Glucose (70-99) mg/dl Lactate 3.8 H* (0.4-2.0) mmol/L 01/23/23 01/23/23 01/24/23 Range/Units 17:04 20:56 07:07 RBC 4.05 L (4.20-5.40) M/uL Hct 36.9 L (37.0-47.0) % RDW Std Deviation (36.4-46.3) fL Sibley # (Auto) 1.07 H (0.11-0.59) K/uL Potassium (3.5-5.1) mmol/L BUN (6-23) mg/dl Creatinine (0.6-1.2) mg/dl Glucose (70-99(Fasting)) mg/dl POC Glucose 130 H (70-99) mg/dl Lactate 3.4 H* (0.4-2.0) mmol/L 01/24/23 01/24/23 01/24/23 Range/Units 07:07 07:44 11:21 RBC (4.20-5.40) M/uL Hct (37.0-47.0) % RDW Std Deviation (36.4-46.3) fL Sibley # (Auto) (0.11-0.59) K/uL Potassium 3.3 L D (3.5-5.1) mmol/L BUN (6-23) mg/dl Creatinine 1.62 H D (0.6-1.2) mg/dl Glucose 163 H (70-99(Fasting)) mg/dl POC Glucose 152 H 189 H (70-99) mg/dl Lactate (0.4-2.0) mmol/L Diagnostic Findings Chest X-Ray 01/23/23 14:58 SINGLE VIEW CHEST CLINICAL HISTORY: Sepsis. FINDINGS: An AP, portable, upright chest radiograph is compared to chest x-ray and chest CT dated 01/14/2023. The heart is mildly enlarged noting atheroscleroti c calcification of the thoracic aorta. Chronic interstitial thickening similar to previous. There is bibasilar scarring/atelectasis. No airspace consolidation or large pleural effusion is identified. No pneumothorax is seen. Skeletal structures are osteopenic. The bony thorax is grossly intact. IMPRESSION: Mild cardiomegaly with no acute cardiopulmonary abnormality identified. ACT 112: Negative or not required by law. Electronically signed by: Karri Salas M.D. 01/23/2023 3:[address] 01/23/23 15:17 CT head/brain wo con CLINICAL HISTORY: 77 years-old Female with change in mental status. Acutely altered mental status TECHNIQUE: Multiple axial CT images of the head were obtained without contrast. A dose lowering technique was utilized adhering to the principles of ALARA. CT DOSE: 638.56 mGycm COMPARISON: None. FINDINGS: No acute intracranial hemorrhage, midline shift, intracranial mass, hydrocephalus, territorial ischemia or abnormal extra-axial collection. Involutional changes with white matter hypodensities suggestive of chronic microvascular ischemic disease. 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 Additional tiny chronic infarcts of the right cerebellum. The calvarium is intact. The paranasal sinuses, mastoid air cells, and middle ear cavities are clear. IMPRESSION: 1. No acute intracranial abnormality. 2. Chronic findings as above. ACT 112: Negative or not required by law. The above report was generated using voice recognition software. It may contain grammatical, syntax or spelling errors. Electronically signed by: Noah Fletcher M.D. 01/23/2023 4:03 PM Venous Doppler Study 01/23/23 17:30 BILATERAL LOWER EXTREMITY VENOUS DOPPLER HISTORY: Acute pain and swelling of the lower legs pain, swollen legs COMPARISON STUDY: None. FINDINGS: There is normal compressibility, flow, and augmentation within the bilateral lower extremity deep venous systems. IMPRESSION: No DVT within the right or left lower extremity. ACT 112: Negative or not required by law. Electronically signed by: Noah Fletcher M.D. 01/23/2023 6:29 PM PG Care Time/CCT Total # of Minutes Spent Total Time Spent with Patient: Total time spent is greater than 50% in coordination of care (as documented) at patient's floor/unit and/or counseling patient: Coding Level of Care Code 43820 SUB INP/OBS CARE 2/35MIN Diagnoses Acute metabolic encephalopathy G93.41 Hypotension I95.9 SKY (acute kidney injury) N17.9 Leg swelling M79.89 Dementia F03.90 Gait apraxia R48.2 Diabetes E11.9 CHF (congestive heart failure) I50.9 Infarction of kidney N28.0
--- NOTE | 2023-01-24 17:56 | Electrocardiogram Report ---
Test Reason : Blood Pressure : / mmHG Vent. Rate : 090 BPM Atrial Rate : 090 BPM P-R Int : 188 ms QRS Dur : 130 ms QT Int : 410 ms P-R-T Axes : 033 -10 105 degrees QTc Int : 501 ms Normal sinus rhythm Left bundle branch block Abnormal ECG When compared with ECG of 14-JAN-2023 16:49, Premature atrial complexes are no longer Present T wave inversion now evident in Lateral leads Confirmed by Russel Ruggiero ([id number]) on 01/24/2023 5:55:51 PM Referred By: Confirmed By:Boogie Ruggiero
[2023-01-24] MEDS: DONEPEZIL HCL 5 MG TAB PO SCH (20:36)
[2023-01-24] MEDS: PARoxetine HCL 20 MG TAB PO SCH (20:37)
[2023-01-25 07:30] LABS: Calcium 9.7 mg/dl (8.6-10.3); Creatinine Clr Calc Pharmacy 29.6 ml/min; Est GFR (African American) 29.7 ml/min; Est GFR (Non-African American) 25.6 ml/min; Potassium 3.2 mmol/L (3.5-5.1)
[2023-01-25] MEDS: carvediloL 3.125 MG TAB PO SCH ×2 (07:51→19:58)
[2023-01-25] MEDS: ASPIRIN 81 MG ECTAB PO SCH (08:00)
[2023-01-25] MEDS: HEPARIN SOD 5,000 UNIT/0.5 ML VIAL SQ SCH ×2 (08:01→20:32)
[2023-01-25] MEDS: POTASSIUM CHLORIDE CRTAB 20 MEQ TABCR PO SCH (08:01)
[2023-01-25] MEDS: ROSUVASTATIN CALCIUM 20 MG TAB PO SCH (08:01)
[2023-01-25] MEDS: NYSTATIN POWDER 15GM BTL EXT SCH ×2 (08:01→20:32)
[2023-01-25] MEDS: PANTOprazole 40 MG TAB PO SCH (08:01)
[2023-01-25] MEDS: LANTUS PER UNIT CHARGE SC SCH ×2 (08:09→20:23)
[2023-01-25] MEDS: INSULIN ASPART PER UNIT CHARGE SC SCH ×4 (08:09→20:23)
[2023-01-25] MEDS ORDERED: LANTUS PER UNIT CHARGE SC SCH (09:00)
[2023-01-25] MEDS ORDERED: LANTUS PER UNIT CHARGE SC ONE (09:00)
[2023-01-25] MEDS ORDERED: SODIUM CHLORIDE 0.9% 500 ML IV ONE (09:01)
[2023-01-25] MEDS: CHOLESTYRAMINE LIGHT 4 GM PKT PO SCH (09:42)
[2023-01-25] MEDS: POTASSIUM CHLORIDE 40 MEQ in SODIUM CHLORIDE 0.9% 1000ML 1,000 ML IV SCH ×2 (10:47→20:28)
--- NOTE | 2023-01-25 14:33 | Hospitalist Progress Note ---
Date of Service January 25, 2023 Assessment & Plan (1) Acute metabolic encephalopathy: Plan: Most likely secondary to acute renal failure Improved significantly with improvement in renal function However her fluids were stopped yesterday and she became drowsy again. Per daughter, the patient was somnolent. (2) Hypotension: Plan: Blood pressure was low again this morning. Noted that she did not receive any fluid yesterday. She had received 2 L of fluid on admission Resumed IV fluids. Ordered 2 L of normal saline with 40 mEq of potassium Got a 500 cc bolus this morning. Unclear why she is needing significantly less anti-hypertensives than historically given but suspect acute deterioration from SKY after Lasix and carvedilol restarted after discharge last admission. Possibly needing decreased anti-hypertensives due to recent UTI although current UA without current infection (will complete additional day of ceftriaxone to complete course of antibiotics) and no other source of infection and low suspicion of sepsis given normal procalcitonin, WBC and UA. Unclear history of CHF for which she takes Entresto, Lasix and carvedilol - no prior hospitalizations for this known to daughter. No pulmonary edema on CXR/CT. Prior normal echocardiogram in 2019 Continue the smallest dose of carvedilol with hold parameters to avoid rebound tachycardia but stop all other antihypertensives at this time. Per daughter, patient did not lose weight significantly recently either that would have explained why she would not be needing antihypertensives. 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 Monitor closely with stopping Lasix. US venous doppler negative for DVT (5) Dementia: Plan: Continue donepezil (6) Gait apraxia: Plan: PT/OT (7) Diabetes: Plan: HbA1C 7.9 [01/15], no need to repeat. Hold metformin while in SKY Novolog: --Goal BSG Range: Low 110 mg/dL, High 140 mg/dL --Correction Factor: 45 mg/dL/unit No carb coverage --BSGs ACHS if eating, q6h if npo (8) CHF (congestive heart failure): Plan: HIM request for prior cardiology notes Continue carvedilol but holding other medications as above (9) Infarction of kidney: Plan: Noted last admission. Suspect asymptomatic as no current flank pain. Hypercoagulable workup pending from PCP Continue ASA Monitor on telemetry for a. fib Plan VTE Prophylaxis - heparin 5000 units BID Diet - T2DM Disposition - admit med/tele Admission and Anticipated Discharge Date Admission Date: January 23, 2023 Subjective Per nurse, patient was sleepy again this morning. She was able to wake up and talk to her but was falling asleep. During my encounter, she was lying in bed and was more awake. Of note, she was getting her fluid bolus. Review of Systems Review of Systems: All systems reviewed & are unremarkable except as noted in Subjective Physical Exam Physical Exam: General: Awake, conversant, pleasantly confused. Lying in bed. Heart: S1, S2/regular rate and rhythm, no murmur rubs or gallops Lungs: Clear to auscultation bilaterally. Normal effort Abdomen: Soft/nontender/nondistended. No hepatosplenomegaly Extremities: No clubbing/cyanosis. Puffy legs bilaterally but no pitting edema Behavior: Appropriate, cooperative Results & Data Results & Data Vital Signs (Past 12 Hours) Vital Signs Temp Pulse Pulse Resp BP Pulse Ox O2 Del Method 01/25/23 07:00 84 01/25/23 11:07 36.5 C 82 20 100/61 93 Room Air 01/25/23 09:47 Room Air 01/25/23 07:32 36.4 C L 88 20 86/54 L 95 Room Air 01/25/23 03:35 36.9 C 74 18 121/67 94 Room Air Laboratory Results Abnormal lab results 01/24/23 01/24/23 01/25/23 Range/Units 16:43 20:03 06:42 Potassium 3.2 L (3.5-5.1) mmol/L Creatinine 1.84 H (0.6-1.2) mg/dl Glucose 167 H (70-99(Fasting)) mg/dl POC Glucose 141 H 169 H (70-99) mg/dl 01/25/23 01/25/23 Range/Units 07:39 11:31 Potassium (3.5-5.1) mmol/L Creatinine (0.6-1.2) mg/dl Glucose (70-99(Fasting)) mg/dl POC Glucose 190 H 164 H (70-99) mg/dl PG Care Time/CCT Total # of Minutes Spent Total Time Spent with Patient: Total time spent is greater than 50% in coordination of care (as documented) at patient's floor/unit and/or counseling patient: Coding Level of Care Code 19813 SUB INP/OBS CARE 3/50MIN Diagnoses Acute metabolic encephalopathy G93.41 Hypotension I95.9 SKY (acute kidney injury) N17.9 Leg swelling M79.89 Dementia F03.90 Gait apraxia R48.2 Diabetes E11.9 CHF (congestive heart failure) I50.9 Infarction of kidney N28.0
[2023-01-25] MEDS: DONEPEZIL HCL 5 MG TAB PO SCH (20:32)
[2023-01-25] MEDS: PARoxetine HCL 20 MG TAB PO SCH (20:32)
[2023-01-26 06:47] LABS: BUN Creatinine Ratio 14.4 (10-20); Calcium 8.7 mg/dl (8.6-10.3); Creatinine Clr Calc Pharmacy 41.3 ml/min; Est GFR (African American) 44.4 ml/min; Est GFR (Non-African American) 38.3 ml/min; Potassium 4.3 mmol/L (3.5-5.1)
[2023-01-26] MEDS: NYSTATIN POWDER 15GM BTL EXT SCH ×2 (07:46→22:27)
[2023-01-26] MEDS: PANTOprazole 40 MG TAB PO SCH (07:47)
[2023-01-26] MEDS: POTASSIUM CHLORIDE CRTAB 20 MEQ TABCR PO SCH (07:47)
[2023-01-26] MEDS: carvediloL 3.125 MG TAB PO SCH ×2 (07:47→22:30)
[2023-01-26] MEDS: ROSUVASTATIN CALCIUM 20 MG TAB PO SCH (07:47)
[2023-01-26] MEDS: ASPIRIN 81 MG ECTAB PO SCH (07:47)
[2023-01-26] MEDS: HEPARIN SOD 5,000 UNIT/0.5 ML VIAL SQ SCH ×2 (07:48→22:26)
[2023-01-26] MEDS: INSULIN ASPART PER UNIT CHARGE SC SCH ×4 (08:08→22:31)
[2023-01-26] MEDS: LANTUS PER UNIT CHARGE SC SCH ×2 (08:08→22:31)
[2023-01-26] MEDS: CHOLESTYRAMINE LIGHT 4 GM PKT PO SCH (09:55)
--- NOTE | 2023-01-26 13:17 | Hospitalist Progress Note ---
Date of Service January 26, 2023 Assessment & Plan (1) Acute metabolic encephalopathy: Plan: Most likely secondary to acute renal failure Improved significantly with improvement in renal function (2) Hypotension: Plan: Blood pressure is better today although she received Coreg and her blood pressure is slightly on the lower side now. However she is not dizzy or lightheaded while sitting upright in the recliner. I encouraged her to drink p.o. fluids IV fluids are on hold. Unclear why she is needing significantly less anti-hypertensives than historically given but suspect acute deterioration from SKY after Lasix and carvedilol restarted after discharge last admission. Possibly needing decreased anti-hypertensives due to recent UTI although current UA without current infection (will complete additional day of ceftriaxone to complete course of antibiotics) and no other source of infection and low suspicion of sepsis given normal procalcitonin, WBC and UA. Unclear history of CHF for which she takes Entresto, Lasix and carvedilol - no prior hospitalizations for this known to daughter. No pulmonary edema on CXR/CT. Prior normal echocardiogram in 2019 Continue the smallest dose of carvedilol with hold parameters to avoid rebound tachycardia but stop all other antihypertensives at this time. Per daughter, patient did not lose weight significantly recently either that would have explained why she would not be needing antihypertensives. 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 Perkins, [facility] ([facility]) SKY (acute kidney injury): Plan: Suspect pre-renal due to hypotension Creatinine improved to 1.3 today with IV hydration Discontinue IV fluids Encourage p.o. fluid intake (4) Leg swelling: Plan: Less likely CHF, suspect more likely just decreased movement and deconditioning. Monitor closely with stopping Lasix. US venous doppler negative for DVT (5) Dementia: Plan: Continue donepezil (6) Gait apraxia: Plan: PT/OT (7) Diabetes: Plan: HbA1C 7.9 [01/15], no need to repeat. Hold metformin while in SKY Novolog: --Goal BSG Range: Low 110 mg/dL, High 140 mg/dL --Correction Factor: 45 mg/dL/unit No carb coverage --BSGs ACHS if eating, q6h if npo (8) CHF (congestive heart failure): Plan: HIM request for prior cardiology notes Continue carvedilol but holding other medications as above (9) Infarction of kidney: Plan: Noted last admission. Suspect asymptomatic as no current flank pain. Hypercoagulable workup pending from PCP Continue ASA Monitor on telemetry for a. fib Plan VTE Prophylaxis - heparin 5000 units BID Diet - T2DM Disposition - admit med/tele Admission and Anticipated Discharge Date Admission Date: January 23, 2023 Subjective Patient is awake, alert, conversant, sitting on the bedside recliner. She says she is feeling well today. Not dizzy or lightheaded. Review of Systems Review of Systems: All systems reviewed & are unremarkable except as noted in Subjective Physical Exam Physical Exam: General: Awake, conversant, pleasantly confused. Sitting upright on the recliner. Today she is smiling, joking. Heart: S1, S2/regular rate and rhythm, no murmur rubs or gallops Lungs: Clear to auscultation bilaterally. Normal effort Abdomen: Soft/nontender/nondistended. No hepatosplenomegaly Extremities: No clubbing/cyanosis. Puffy legs bilaterally but no pitting edema Behavior: Appropriate, cooperative Results & Data Results & Data Vital Signs (Past 12 Hours) Vital Signs Temp Pulse Pulse Resp BP Pulse Ox O2 Del Method 01/26/23 11:11 36.4 C L 71 20 92/57 L 95 Room Air 01/26/23 09:59 Room Air 01/26/23 07:36 36.5 C 70 20 129/67 95 Room Air 01/26/23 07:12 63 01/26/23 03:04 36.6 C 70 16 109/69 94 Room Air PG Care Time/CCT Total # of Minutes Spent Total Time Spent with Patient: Total time spent is greater than 50% in coordination of care (as documented) at patient's floor/unit and/or counseling patient: Coding Level of Care Code 16518 SUB INP/OBS CARE 2/35MIN Diagnoses Acute metabolic encephalopathy G93.41 Hypotension I95.9 SKY (acute kidney injury) N17.9 Leg swelling M79.89 Dementia F03.90 Gait apraxia R48.2 Diabetes E11.9 CHF (congestive heart failure) I50.9 Infarction of kidney N28.0
--- NOTE | 2023-01-26 14:10 | Pharmacy Report ---
Pharmacy Glycemic Short Note 2 - Date of Service January 26, 2023 - Glycemic Short BSG Results (Last 24 hours): 01/25/23 01/25/23 01/26/23 16:39 20:17 05:47 Glucose 129 H POC Glucose 136 H 128 H 01/26/23 01/26/23 07:35 11:31 Glucose POC Glucose 141 H 217 H OUTPATIENT ANTIDIABETIC REGIMEN: * Metformin 1000 mg PO BIDM HbA1c: 7.9% (01/15/23) ASSESSMENT: 01/26/23: * BSGs trended down nicely yesterday, 190 -> 128 mg/dL * Received 37 units of insulin (20 units of basal and 17 units of prandial/correctional bolus) * Fasting BSG much improved today (190 -> 141 mg/dL), continue same total daily dose of basal * SKY resolving (SCr 2.13 -> 1.32 mg/dL) * Do not anticipate any changes to insulin regimen today 01/24/23: * ABI is a 77 year old female who presented to [facility] ED on 01/23 with complaints of generalized weakness and increased insomnia * Patient with dementia, as well as acute altered mental status * Reasonably controlled T2DM with metformin as an outpatient (reasonable goal for patient would be HbA1c < 8% given patient's advanced age and comorbidities). Noted SKY on admission - metformin being held. * Patient did not receive any insulin overnight, fasting BSG is 152 mg/dL this morning * Patient recently hospitalized earlier this month, persistently hyperglycemic during that admission PLAN FOR INPATIENT GLYCEMIC CONTROL: * Hold outpatient oral diabetes medications * Basal insulin * Lantus 10 units SC BID * Bolus insulin * NovoLog per scale ACHS or Q6hrs while NPO * Goal Range: Low 110 mg/dL - High 140 mg/dL * Correction Factor: 25 mg/dL/unit * Nutritional / Prandial insulin per carb ratio of 1 unit per 8 grams CHO consumed
[2023-01-26] MEDS: DONEPEZIL HCL 5 MG TAB PO SCH (22:26)
[2023-01-26] MEDS: PARoxetine HCL 20 MG TAB PO SCH (22:27)
[2023-01-27] MEDS: ASPIRIN 81 MG ECTAB PO SCH (08:12)
[2023-01-27] MEDS: NYSTATIN POWDER 15GM BTL EXT SCH ×2 (08:12→20:16)
[2023-01-27] MEDS: ROSUVASTATIN CALCIUM 20 MG TAB PO SCH (08:12)
[2023-01-27] MEDS: carvediloL 3.125 MG TAB PO SCH ×2 (08:12→20:16)
[2023-01-27] MEDS: POTASSIUM CHLORIDE CRTAB 20 MEQ TABCR PO SCH (08:12)
[2023-01-27] MEDS: PANTOprazole 40 MG TAB PO SCH (08:12)
[2023-01-27] MEDS: HEPARIN SOD 5,000 UNIT/0.5 ML VIAL SQ SCH ×2 (08:13→20:16)
[2023-01-27] MEDS: INSULIN ASPART PER UNIT CHARGE SC SCH ×4 (08:17→20:51)
[2023-01-27] MEDS: LANTUS PER UNIT CHARGE SC SCH ×2 (08:18→21:46)
[2023-01-27 08:52] LABS: BUN Creatinine Ratio 16.7 (10-20); Calcium 9.4 mg/dl (8.6-10.3); Creatinine Clr Calc Pharmacy 43.4 ml/min; Est GFR (African American) 46.9 ml/min; Est GFR (Non-African American) 40.5 ml/min; Potassium 3.8 mmol/L (3.5-5.1)
[2023-01-27] MEDS: CHOLESTYRAMINE LIGHT 4 GM PKT PO SCH (09:52)
--- NOTE | 2023-01-27 12:00 | Hospitalist Progress Note ---
Date of Service January 27, 2023 Assessment & Plan (1) Acute metabolic encephalopathy: Plan: Most likely secondary to acute renal failure Improved significantly with improvement in renal function (2) Hypotension: Plan: Blood pressure is better today. I encouraged her to drink p.o. fluids IV fluids are on hold. Unclear why she is needing significantly less anti-hypertensives than historically given but suspect acute deterioration from SKY after Lasix and carvedilol restarted after discharge last admission. Possibly needing decreased anti-hypertensives due to recent UTI although current UA without current infection (will complete additional day of ceftriaxone to complete course of antibiotics) and no other source of infection and low suspicion of sepsis given normal procalcitonin, WBC and UA. Unclear history of CHF for which she takes Entresto, Lasix and carvedilol - no prior hospitalizations for this known to daughter. No pulmonary edema on CXR/CT. Prior normal echocardiogram in 2019 Continue the smallest dose of carvedilol with hold parameters to avoid rebound tachycardia but stop all other antihypertensives at this time. Per daughter, patient did not lose weight significantly recently either that would have explained why she would not be needing antihypertensives. 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 fluid intake (4) Leg swelling: Plan: Less likely CHF, suspect more likely just decreased movement and deconditioning. Monitor closely with stopping Lasix. No increased leg swelling or shortness of breath so far with holding Lasix US venous doppler negative for DVT (5) Dementia: Plan: Continue donepezil (6) Gait apraxia: Plan: PT/OT (7) Diabetes: Plan: HbA1C 7.9 [01/15], no need to repeat. Hold metformin while in SKY Novolog: --Goal BSG Range: Low 110 mg/dL, High 140 mg/dL --Correction Factor: 45 mg/dL/unit No carb coverage --BSGs ACHS if eating, q6h if npo (8) CHF (congestive heart failure): Plan: HIM request for prior cardiology notes Continue carvedilol but holding other medications as above Seems to be well compensated despite all medications being on hold including Lasix (9) Infarction of kidney: Plan: Noted last admission. Suspect asymptomatic as no current flank pain. Hypercoagulable workup pending from PCP Continue ASA Monitor on telemetry for a. fib Plan VTE Prophylaxis - heparin 5000 units BID Diet - T2DM Disposition -likely discharge tomorrow to home with home health. Pending cardiology office notes. Spoke to daughter on the phone today 01/27 to update her about the plan. Admission and Anticipated Discharge Date Admission Date: January 23, 2023 Subjective Patient feels well. Denies chest pain or shortness of breath. She is awake and smiling. Physical Exam Physical Exam: General: Awake, conversant, pleasantly confused. Lying in bed but able to hold a conversation. Smiling. Heart: S1, S2/regular rate and rhythm, no murmur rubs or gallops Lungs: Clear to auscultation bilaterally. Normal effort Abdomen: Soft/nontender/nondistended. No hepatosplenomegaly Extremities: No clubbing/cyanosis. Puffy legs bilaterally but no pitting edema Behavior: Appropriate, cooperative Results & Data Results & Data Vital Signs (Past 12 Hours) Vital Signs Temp Pulse Pulse Resp BP Pulse Ox O2 Del Method 01/27/23 10:56 36.3 C L 81 20 104/54 L 94 Room Air 01/27/23 09:05 Room Air 01/27/23 07:37 36.4 C L 62 20 120/67 97 Room Air 01/27/23 07:05 68 01/27/23 04:00 36.5 C 71 18 127/68 93 Room Air PG Care Time/CCT Total # of Minutes Spent Total Time Spent with Patient: Total time spent is greater than 50% in coordination of care (as documented) at patient's floor/unit and/or counseling patient: Coding Level of Care Code 26579 SUB INP/OBS CARE 2/35MIN Diagnoses Acute metabolic encephalopathy G93.41 Hypotension I95.9 SKY (acute kidney injury) N17.9 Leg swelling M79.89 Dementia F03.90 Gait apraxia R48.2 Diabetes E11.9 CHF (congestive heart failure) I50.9 Infarction of kidney N28.0
[2023-01-27] MEDS: PARoxetine HCL 20 MG TAB PO SCH (20:16)
[2023-01-27] MEDS: DONEPEZIL HCL 5 MG TAB PO SCH (20:16)
[2023-01-28 07:35] LABS: BUN Creatinine Ratio 19.2 (10-20); Calcium 9.6 mg/dl (8.6-10.3); Est GFR (African American) 45.2 ml/min; Potassium 4.1 mmol/L (3.5-5.1)
[2023-01-28] MEDS: carvediloL 3.125 MG TAB PO SCH ×2 (07:51→20:39)
[2023-01-28] MEDS: ASPIRIN 81 MG ECTAB PO SCH (07:51)
[2023-01-28] MEDS: NYSTATIN POWDER 15GM BTL EXT SCH ×2 (07:51→20:40)
[2023-01-28] MEDS: PANTOprazole 40 MG TAB PO SCH (07:52)
[2023-01-28] MEDS: POTASSIUM CHLORIDE CRTAB 20 MEQ TABCR PO SCH (07:52)
[2023-01-28] MEDS: ROSUVASTATIN CALCIUM 20 MG TAB PO SCH (07:52)
[2023-01-28] MEDS: INSULIN ASPART PER UNIT CHARGE SC SCH ×4 (08:32→20:32)
[2023-01-28] MEDS: LANTUS PER UNIT CHARGE SC SCH ×2 (08:35→20:38)
[2023-01-28] MEDS: HEPARIN SOD 5,000 UNIT/0.5 ML VIAL SQ SCH (09:22)
[2023-01-28] MEDS: CHOLESTYRAMINE LIGHT 4 GM PKT PO SCH (11:11)
--- NOTE | 2023-01-28 13:00 | Pharmacy Report ---
Pharmacy Glycemic Short Note 2 - Date of Service January 28, 2023 - Glycemic Short BSG Results (Last 24 hours): 01/27/23 01/27/23 01/28/23 16:43 20:25 06:01 Glucose 119 H POC Glucose 146 H 139 H 01/28/23 01/28/23 07:42 11:56 Glucose POC Glucose 121 H 133 H OUTPATIENT ANTIDIABETIC REGIMEN: * Metformin 1000 mg PO BIDM HbA1c: 7.9% (01/15/23) ASSESSMENT: 01/28/23: * BSG's [phone] mg/dL throughout the day yesterday. Patient received 16 units of basal insulin and 24 units of bolus insulin for a TDD of 40 units. * 01/27, basal insulin was reduced to 8 units BID (low fasting of 112 mg/dL that AM). CR tightened from 8 to 7 carbs per unit. * Today, fasting 121mg/dL. 133 mg/dL at lunch. * No change required to NovoLog and Lantus orders at this time; May consider signing-off if patient remains stable. * Creatinine 1.3 mg/dL today on AM labs, closer to baseline. 01/26/23: * BSGs trended down nicely yesterday, 190 -> 128 mg/dL * Received 37 units of insulin (20 units of basal and 17 units of prandial/correctional bolus) * Fasting BSG much improved today (190 -> 141 mg/dL), continue same total daily dose of basal * SKY resolving (SCr 2.13 -> 1.32 mg/dL) * Do not anticipate any changes to insulin regimen today 01/24/23: * ABI is a 77 year old female who presented to [facility] ED on 01/23 with complaints of generalized weakness and increased insomnia * Patient with dementia, as well as acute altered mental status * Reasonably controlled T2DM with metformin as an outpatient (reasonable goal for patient would be HbA1c < 8% given patient's advanced age and comorbidities). Noted SKY on admission - metformin being held. * Patient did not receive any insulin overnight, fasting BSG is 152 mg/dL this morning * Patient recently hospitalized earlier this month, persistently hyperglycemic during that admission PLAN FOR INPATIENT GLYCEMIC CONTROL: * Hold outpatient oral diabetes medications * Basal insulin * Lantus 8 units SC BID * Bolus insulin * NovoLog per scale ACHS or Q6hrs while NPO * Goal Range: Low 110 mg/dL - High 140 mg/dL * Correction Factor: 25 mg/dL/unit * Nutritional / Prandial insulin per carb ratio of 1 unit per 7 grams CHO consumed
--- NOTE | 2023-01-28 20:07 | Hospitalist Progress Note ---
Date of Service January 28, 2023 Assessment & Plan (1) Acute metabolic encephalopathy: Plan: resolved a/o x 3 today has baseline dementia per records - likely vascular in origin - and had superimposed delirium (2) Hypotension: Plan: resolved with holding multiple anti-hypertensive medications cont to hold lasix, Entresto coreg remains at 3.125mg BID awaiting records from Dr. Perkins, patient's driller and broacher at [facility] [place] cortisol level 8.5 (3) SKY (acute kidney injury): Plan: Peak Cr 2.1 now down to 1.3 today Cr improved with allowing BP to recover cont to hold lasix, Entresto cont coreg albeit at reduced dose (4) Leg swelling: Plan: u/a without significant proteinuria does not examine in CHF today no prior h/o cirrhosis Creatinine stable/improved lasix on hold due to recent SKY echo 06/2022 -- EF 55-60% with preserved right heart function last TSH 2021 wnl; repeat TSH in am (5) Dementia: Plan: Continue donepezil Suspect vascular in etiology given the numerous CVAs seen on recent MRI brain (6) Gait apraxia: Plan: cont PT/OT family ok with discharge to home with caregivers and PT/OT services (7) Diabetes: Plan: HbA1C 7.9% (01/2023) cont lantus cont novolog (8) CHF (congestive heart failure): Plan: diastolic compensated today cont BB hold lasix due to recent SKY (9) Infarction of kidney: Plan: left-sided etiology? embolic from PAF? embolic from some other source? hypercoagulable state? recent hypercoagulable w/u negative -- protein C, protein S, Factor 5 Leiden mutation, prothrombin gene mutation. I cannot find homocysteine level, antithrombin III level, formal lupus anticoagulant panel, or anticardiolipin ab's = will dispatch these in am. noted that PTT is mildly prolonged last admission - repeat tomorrow am. if still prolonged - inhibitor?? if still prolonged then mixing study. unfortunately patient had a loop recorder but by report it was explanted at some point. await cardiology records. to date, however, no PAF seen. (10) Morbid obesity: Plan: BMI nearly 40 (11) Prolonged PTT: Plan: inhibitor? factor deficiency? other? repeat PTT in am. if still prolonged then mixing study. (12) Cerebrovascular disease: Plan: numerous strokes on recent MRI brain. cont asa for secondary prevention. (13) Abnormal brain MRI: Plan: recent brain MRI on 01/15/23 with - "Diffuse thickening of the pachymeninges measuring up to 3 mm on the left and 2 mm on the right which is a new finding compared to the study from 05/17/2022. Findings may represent intracranial hypotension. Correlate clinically to exclude infection." Patient has no symptoms/signs of meningitis - no headache, no neck pain, normal appetite, no fevers, normal WBC count - patient nontoxic and well. I spoke with on-call neurology regarding this finding. Given NO symptoms/signs of meningitis clinically (and this study was nearly 2 weeks ago) no need for lumbar puncture at this time. She will need f/u with neurology as outpatient shortly after discharge, and a repeat MRI brain will be needed as well. She is not on any offending medications that would typically cause the meningeal appearance. Further, no recent spinal surgery, lumbar puncture, etc to suggest CSF leak. Plan DVT proph - has been on heparin SC, but will hold starting tonight to get an accurate PTT level am social work confirmed with pt's family today that they desire her to return to her home in [facility] with home health services, home PT/OT, etc. possibly home tomorrow depending on am labs Admission and Anticipated Discharge Date Admission Date: January 23, 2023 Subjective telemetry overnight wnl (NSR) patient sitting in chair comfortably she denies all complaints specifically denies headache, poor appetite, fatigue, chest pain, dyspnea, abd pain, nausea or emesis denies any back pain or flank pain Review of Systems Review of Systems: gen - no fevers cv - no cp pulm - no cough GI - no diarrhea Physical Exam Physical Exam: gen - NAD, obese, sitting in chair neck - no JVD at 90 degrees mouth - MMM heart - RRR, s1 s2 lungs - CTA b/l abd - soft NT ND BS+ ext - <1+ edema b/l, pulses 2+ b/l psych - oriented to person, place, and time (except day of the week) neuro - no facial droop; strength 5/5 x 4 exts; speech fluent & clear Results & Data Results & Data Vital Signs (Past 12 Hours) Vital Signs Temp Pulse Pulse Resp BP Pulse Ox O2 Del Method 01/28/23 19:30 36.3 C L 71 18 114/75 98 Room Air 01/28/23 16:23 68 01/28/23 14:35 36.4 C L 87 20 147/71 H 95 Room Air 01/28/23 11:17 36.5 C 65 18 132/60 97 Room Air Laboratory Results Laboratory Results - last 24 hr 01/27/23 01/28/23 01/28/23 20:25 06:01 07:42 Sodium 140 Potassium 4.1 Chloride 112 H Carbon Dioxide 22 Anion Gap 6 BUN 25 H Creatinine 1.30 H Est Cr Clr Drug Dosing 44.0 Est GFR ( Amer) 45.2 Est GFR (Non-Af Amer) 39.0 BUN/Creatinine Ratio 19.2 Glucose 119 H POC Glucose 139 H 121 H Calcium 9.6 01/28/23 01/28/23 11:56 16:45 Sodium Potassium Chloride Carbon Dioxide Anion Gap BUN Creatinine Est Cr Clr Drug Dosing Est GFR ( Amer) Est GFR (Non-Af Amer) BUN/Creatinine Ratio Glucose POC Glucose 133 H 118 H Calcium PG Care Time/CCT Total # of Minutes Spent Total Time Spent with Patient: Total time spent is greater than 50% in coordination of care (as documented) at patient's floor/unit and/or counseling patient: Coding Level of Care Code 15141 SUB INP/OBS CARE 3/50MIN Diagnoses Acute metabolic encephalopathy G93.41 Hypotension I95.9 SKY (acute kidney injury) N17.9 Leg swelling M79.89 Dementia F03.90 Gait apraxia R48.2 Diabetes E11.9 CHF (congestive heart failure) I50.9 Infarction of kidney N28.0 Morbid obesity E66.01 Prolonged PTT R79.1 Cerebrovascular disease I67.9 Abnormal brain MRI R90.89
[2023-01-28] MEDS: PARoxetine HCL 20 MG TAB PO SCH (20:50)
[2023-01-28] MEDS: DONEPEZIL HCL 5 MG TAB PO SCH (20:50)
[2023-01-29] MEDS: INSULIN ASPART PER UNIT CHARGE SC SCH ×3 (08:08→17:41)
[2023-01-29] MEDS: LANTUS PER UNIT CHARGE SC SCH (08:08)
[2023-01-29] MEDS: NYSTATIN POWDER 15GM BTL EXT SCH (08:08)
[2023-01-29] MEDS: carvediloL 3.125 MG TAB PO SCH (08:09)
[2023-01-29] MEDS: ROSUVASTATIN CALCIUM 20 MG TAB PO SCH (08:09)
[2023-01-29] MEDS: ASPIRIN 81 MG ECTAB PO SCH (08:09)
[2023-01-29] MEDS: PANTOprazole 40 MG TAB PO SCH (08:09)
[2023-01-29 08:25] LABS: BUN Creatinine Ratio 19.2 (10-20); Calcium 9.6 mg/dl (8.6-10.3); Creatinine Clr Calc Pharmacy 43.5 ml/min; Est GFR (African American) 45.2 ml/min; Hematocrit (blood only) 31.3 % (37.0-47.0); Hemoglobin 10.6 g/dl (12.0-16.0); Mean Corpuscular Hemoglobin 30.8 pg (25.0-34.0); Mean Corpuscular Hgb Conc 33.9 g/dL (32.0-36.0); Mean Platelet Volume 10.5 fL (9.4-12.4); Platelet Count 241 K/uL (130-400); Potassium 4.2 mmol/L (3.5-5.1); RDW Coefficient of Variation 13.9 % (11.5-14.5); RDW Standard Deviation 45.7 fL (36.4-46.3); Red Blood Count 3.44 M/uL (4.20-5.40); White Blood Count 5.66 K/ul (4.8-10.8)
[2023-01-29 08:31] LABS: Partial Thromboplastin Ratio 0.8; Partial Thromboplastin Time 23.9 Seconds (21.0-31.0)
[2023-01-29] MEDS: CHOLESTYRAMINE LIGHT 4 GM PKT PO SCH (09:41)
[2023-01-29 10:15] LABS: Thyroid Stimulating Hormone 5.266 uIu/ml (0.300-4.500)
[2023-01-29 10:50] LABS: T4 Free Thyroxine 0.81 ng/dl (0.61-1.60)
--- NOTE | 2023-01-29 13:57 | Pharmacy Report ---
Pharmacy Glycemic Sign Off Nt - Date of Service January 29, 2023 - Assessment & Plan ASSESSMENT: * Pharmacy was consulted by Dr Zhao on 01/23/23 for glycemic control and to write orders per [facility] inpatient glycemic control protocol. * Major changes made by pharmacy to antidiabetic regimen include: * Holding outpatient metformin * Initiation of Novolog at weight based stress of 2 parameters. * Twice a day Lantus * Patient has been receiving/requiring ~30 units of insulin per day for adequate glycemic control * BSGs ranging 118-168 mg/dL over the past 72 hours. * Regimen has not required any adjustments to achieve this level of control during this time. * Do not anticipate further changes in patient status that would quickly deteriorate glycemic control (i.e. patient to be NPO for upcoming procedure, steroids tapering, starting tube feedings, etc). PLAN FOR INPATIENT GLYCEMIC CONTROL: No changes needed to current regimen. * Continue basal insulin with Lantus 8 units SQ BID * Continue NovoLog per scale ACHS/Q6hrs while NPO * Goal range = 110-140 mg/dl * CF = 25 mg/dl/unit * CR = 1 unit for ever 7 g CHO consumed * Pharmacy is signing off of glycemic consult and will no longer be making adjustments to inpatient regimen. Please feel free to re-consult if needed. Thank you.
--- NOTE | 2023-01-29 18:22 | Discharge Summary ---
Date of Service January 29, 2023 Admission HPI Per Admitting Provider Deanna Mccormack is a 77 year old female with dementia who presents to the ER with generalized weakness and increased insomnia. Unable to get any significant history from patient due to altered mental state. She denies any currently pain. Her daughter at bedside provides history. She was hospitalized from January 14 - 2022 due to altered mental status and diagnosed with UTI and hypotension. She was treated with IV ceftriaxone during admission and discharged on Augmentin. All her BP medication was initially stopped during the hospitalization however her Entresto was able to be restarted. On discharge her BP was 96/60 and she was restarted on her Lasix and carvedilol which she was not receiving while in hospital. Amlodipine and spironolactone were discontinued. One episode of diarrhea yesterday. After recent discharge she was initially doing well at home without any dizziness. However over the last few days she has increasingly become more weak at home and sleeping more often. She has more longstanding problems which were ongoing prior to her last admission with leg swelling and sensitivity. She was due to have an outpatient EMG but was unable to tolerate that test. Currently they are similar to her last admission but the worst they have been. She has also been more short of breath on exertion which was worked up with a cardiac catheterization on January 13 and reportedly unremarkable per her daughters recollection. She has no known lung disease and this is stable since her last admission when she had a normal CT for PE. Discharge Data Allergies Allergy/AdvReac Type Severity Reaction Status Date / Time aspirin Allergy Severe Hives Verified 01/23/23 13:48 NSAIDS (Non-Steroidal Allergy Intermediate Hives Verified 01/23/23 13:48 Anti-Inflamma Consultations 01/23/23 17:32 HIM [Consult Health Information Management] Routine Ordered Studies 01/23/23 15:17 CT head/brain wo con Stat 01/23/23 17:30 US venous doppler LE BI Stat Hospital Course (1) Acute metabolic encephalopathy: resolved a/o x 3 today has baseline dementia per records - likely vascular in origin - and had superimposed delirium (2) Hypotension: resolved with holding multiple anti-hypertensive medications cont to hold lasix, Entresto coreg remains at 3.125mg BID awaiting records from Dr. Perkins, patient's flex o writer operator at [facility] cortisol level 8.5 (3) SKY (acute kidney injury): Peak Cr 2.1 now down to 1.3 today Cr improved with allowing BP to recover cont to hold lasix, Entresto cont coreg albeit at reduced dose (4) Leg swelling: u/a without significant proteinuria does not examine in CHF today no prior h/o cirrhosis Creatinine stable/improved lasix on hold due to recent SKY echo 06/2022 -- EF 55-60% with preserved right heart function last TSH 2021 wnl; repeat TSH in am (5) Dementia: Continue donepezil Suspect vascular in etiology given the numerous CVAs seen on recent MRI brain (6) Gait apraxia: cont PT/OT family ok with discharge to home with caregivers and PT/OT services (7) Diabetes: HbA1C 7.9% (01/2023) cont lantus cont novolog (8) CHF (congestive heart failure): diastolic compensated today cont BB hold lasix due to recent SKY (9) Infarction of kidney: left-sided etiology? embolic from PAF? embolic from some other source? hypercoagulable state? recent hypercoagulable w/u negative -- protein C, protein S, Factor 5 Leiden mutation, prothrombin gene mutation. I cannot find homocysteine level, antithrombin III level, formal lupus anticoagulant panel, or anticardiolipin ab's = will dispatch these in am. noted that PTT is mildly prolonged last admission - repeat tomorrow am. if still prolonged - inhibitor?? if still prolonged then mixing study. unfortunately patient had a loop recorder but by report it was explanted at some point. await cardiology records. to date, however, no PAF seen. (10) Morbid obesity: BMI nearly 40 (11) Prolonged PTT: inhibitor? factor deficiency? other? repeat PTT in am. if still prolonged then mixing study. (12) Cerebrovascular disease: numerous strokes on recent MRI brain. cont asa for secondary prevention. (13) Abnormal brain MRI: recent brain MRI on 01/15/23 with - "Diffuse thickening of the pachymeninges measuring up to 3 mm on the left and 2 mm on the right which is a new finding compared to the study from 05/17/2022. Findings may represent intracranial hypotension. Correlate clinically to exclude infection." Patient has no symptoms/signs of meningitis - no headache, no neck pain, normal appetite, no fevers, normal WBC count - patient nontoxic and well. I spoke with on-call neurology regarding this finding. Given NO symptoms/signs of meningitis clinically (and this study was nearly 2 weeks ago) no need for lumbar puncture at this time. She will need f/u with neurology as outpatient shortly after discharge, and a repeat MRI brain will be needed as well. She is not on any offending medications that would typically cause the meningeal appearance. Further, no recent spinal surgery, lumbar puncture, etc to suggest CSF leak. Plan DVT proph - has been on heparin SC, but will hold starting tonight to get an accurate PTT level am social work confirmed with pt's family today that they desire her to return to her home in [facility] with home health services, home PT/OT, etc. possibly home tomorrow depending on am labs Home Health Attestation I certify that this patient is under my care and that I, or a physicians senior care assistant working with me, had a face to-face encounter that meets the home health [id number] encounter requirements with this patient. The encounter with the patient was in whole, or in part, for the following medical condition, which is the primary reason for home health care (list medical condition): hypotension I certify that, based on my findings, the following services are medically necessary home health services: My clinical findings support the need for the above services because: OT Assess ADL Status and Restore Function w ADLs PT Assessment for Endurance / Balance / Strength PT Eval for Safety and Mobility PT Eval for Safety, Gait Training, Assistive Devices PT Gait and Balance Training, Strengthening and Safety Skilled Nsg Assessment Further, I certify that my clinical findings support that this patient is homebound (i.e. absences from home require considerable and taxing effort and are for medical reasons or scientology services or infrequently or of short duration when for other reasons) because: Supportive Aid - Walker Transportation Assistance/Unable to Leave Home Unassisted Certification for Home Health Services: Based on the above findings, I certify that this patient is confined to the home and needs intermittent assisted care, physical therapy and/or speech therapy or continues to need occupational therapy. The patient is under my care, and I have initiated the establishment of the plan of care. This patient will be followed by a physician who will periodically review the plan of care. Discharge Plan Discharge Items Patient Disposition: Home - Home Health Services Reason For Visit: HYPOTENSION Discharge Diagnosis: 1. Hypotension (low blood pressure) - resolved 2. Acute kidney injury (rise in creatinine, which is the kidney number in the blood) - resolved; creatinine back to your normal 3. Confusion - likely multiple causes - resolved 4. Left kidney "infarction" (temporary damage to the kidney from a piece of plaque or blood clot) - suspect due to recent heart catheterization 5. Cerebrovascular disease (multiple old strokes seen on MRI brain) 6. Abnormal Brain MRI - neurology follow-up needed 7. Dementia 8. Recent urinary tract infection - resolved 9. Hypothyroidism (underactive thyroid gland) Activity: Resume your previous activity Non-emergency contact: Primary Care Provider, Metal Finish Inspector and Neurologist Call non-emergency contact if: you have any medication questions and your symptoms worsen Follow-up/Referrals: Bonifacio Ibanez DO [Primary Care Provider] - 02/05/23 11:20 am Praveena Michael PA-C [Physician Drawing In Machine Tender Helper] - 01/31/23 3:00 pm Alexis Steele MD [Outside Practitioners] - 02/14/23 9:20 am (THIS APPOINTMENT WILL BE WITH KYLA[facility]) Diet: Carb Consistent or DM2 and Heart Healthy Addtl Attending Provider Instructions: Mrs Mccormack, You were re-admitted to [facility] after having weakness, fatigue, excessive sleeping, low blood pressure, and confusion. At time of presentation your creatinine (kidney function level in the blood) was elevated and your blood pressures were indeed low. Your blood pressure improved with holding certain blood pressure pills as well as receiving gentle IV fluids. Your creatinine improved back to your typical normal level (1.2 to 1.3). During this stay we did not find any ongoing urinary tract infection, COVID illness, pneumonia, etc. You made nice overall improvement in your strength while here. You received PT/OT while here to help with your weakness and to rebuild your strength. Your confusion improved and your appetite was robust. I suspect your confusion was due to multiple things including low blood pressure, high creatinine/kidney level, etc. With respect to the recent left kidney "infarct" (which was discovered during your prior hospital stay) this likely occurred as a side effect of the recent heart catheterization. There is nothing to do for the infarct at this time - this area will simply heal over time. Finally, during the prior hospitalization, you had undergone an MRI of the brain. This showed multiple old strokes on both sides of the brain. It also showed that the protective lining of the brain - also known as the "meninges" - was abnormal appearing. The exact cause of this latter finding is uncertain. We are recommending that you follow-up with [facility] for this. They likely will repeat an MRI of the brain in the next few weeks. Recommendations - 1. LOWER your furosemide (water pill/diuretic) to 20mg each morning. You can take your first dose tomorrow morning. I sent a new prescription to your pharmacy for you. 2. LOWER your potassium supplement to 20meq once daily. You can take your first dose tomorrow morning. 3. STOP your Entresto (sacubitril-valsartan). 4. START levothyroxine 25mcg each morning. This is for underactive thyroid/hypothyroidism. You can begin this tomorrow. Your family doctor will likely recommend a repeat thyroid level (TSH level) in about 6 weeks. 5. STOP any recently prescribed antibiotic. 6. If possible check your blood sugar each morning at home. Write these numbers down in a notebook. Share these numbers with your family doctor. Follow-up - see separate section At your request we will set you up to see [facility] in the future for your heart needs Return to [facility] if - * you have fevers over 100 degrees * you have worsening shortness of breath * you have chest pains * you have abdominal pains * you have severe diarrhea * you develop worsening confusion * any other concerns It was our pleasure to care for you! Dr Lawrence Pending Studies at Discharge: Yes Studies:: lab work to further investigate potential causes of prior strokes Stand-Alone Forms: My [facility], Smoking Cessation Medications and DC Order Prescriptions: New levothyroxine [Synthroid] 25 mcg tablet 25 mcg PO DAILY Qty: 30 2RF Rx Instructions: for underactive thyroid gland Continued (DME) BD Eclipse Luer-Andrei 3 mL 25 x 5/8" syringe See Rx Instructions .Route Qty: 8 0RF Rx Instructions: As directed for use with B12 injections donepezil 5 mg tablet 5 mg PO HS Qty: 30 5RF carvedilol 3.125 mg tablet 3.125 mg PO BID Rx Instructions: must administer with a meal/food paroxetine HCl 20 mg tablet 20 mg PO HS rosuvastatin 20 mg tablet 20 mg PO DAILY nystatin 100,000 unit/gram powder 1 applic TOPICAL UD cholestyramine-aspartame [Cholestyramine Light] 4 gram powder in packet 1 ea PO DAILY metformin 1,000 mg tablet 1,000 mg PO BID omeprazole 20 mg capsule,delayed release(DR/EC) 40 mg PO DAILY ergocalciferol (vitamin D2) [Vitamin D2] 1,250 mcg (50,000 unit) capsule 1,250 mcg PO WK aspirin 81 mg capsule 81 mg PO DAILY Qty: 30 0RF Changed potassium chloride 20 mEq tablet,ER particles/crystals 20 meq PO QAM Qty: 30 0RF furosemide 20 mg tablet 20 mg PO QAM Qty: 30 2RF Rx Instructions: for fluid/edema of legs; note lower dose. Discontinued Entresto 24-26 mg tablet 1 tab PO BID amoxicillin-pot clavulanate 875-125 mg tablet 1 tab PO BID Qty: 10 0RF Discharge Orders: Discharge Order (Routine); Ordered 01/29/23 Ordered By: Jorge A Mace/Other Patient Handouts: ED Hypothyroidism Admission Data Admit Date/Time: 01/23/23 17:50 Attending Provider: Jroge A Lawrence Admit Provider: Jorge A Zhao Primary Care Provider: Bonifacio Ibanez Other Interventions: Discharge Summary Assessment (RN) Last Done: 01/29/23 18:15 Coding Diagnoses Acute metabolic encephalopathy G93.41 Hypotension I95.9 SKY (acute kidney injury) N17.9 Leg swelling M79.89 Dementia F03.90 Gait apraxia R48.2 Diabetes E11.9 CHF (congestive heart failure) I50.9 Infarction of kidney N28.0 Morbid obesity E66.01 Prolonged PTT R79.1 Cerebrovascular disease I67.9 Abnormal brain MRI R90.89
[2023-02-02 01:22] LABS: Anti Cardiolipin Ab IgG <2.0 GPL-U/mL; Anti Cardiolipin Ab IgM <2.0 MPL-U/mL; Anti-Cardiolipin Ab IgA <2.0 APL-U/mL; Anti-Thrombin III Activity 107 % normal (80-135)
== END 2023-01-29 19:00 | disposition home health service (06) | DRG 682 ==
LOC: ED 14:57 → SUATTDRO 17:50 → 2N 17:50

== ENCOUNTER 2023-03-17 13:06 | Inpatient (IN) ==
[2023-03-17 14:10] LABS: Basophils # (auto) 0.07 K/uL (0-0.2); Basophils % (auto) 1.2 %; Eosinophils # (auto) 0.18 K/uL (0-0.50); Eosinophils % (auto) 3.2 %; Hematocrit (blood only) 35.7 % (37.0-47.0); Hemoglobin 12.6 g/dl (12.0-16.0); Immature Granulocytes # (auto) 0.01 K/uL (0.01-0.20); Immature Granulocytes % (auto) 0.2 %; Lymphocytes # (auto) 2.64 K/uL (1.2-3.4); Lymphocytes % (auto) 46.8 %; Mean Corpuscular Hemoglobin 32.6 pg (25.0-34.0); Mean Corpuscular Hgb Conc 35.3 g/dL (32.0-36.0); Mean Corpuscular Volume 92.2 fL (80.0-100.0); Mean Platelet Volume 10.7 fL (9.4-12.4); Monocytes # (auto) 0.72 K/uL (0.11-0.59); Monocytes % (auto) 12.8 %; Neutrophils # (auto) 2.02 K/uL (1.40-6.50); Neutrophils % (auto) 35.8 %; Platelet Count 231 K/uL (130-400); RDW Standard Deviation 45.8 fL (36.4-46.3); Red Blood Count 3.87 M/uL (4.20-5.40); White Blood Count 5.64 K/ul (4.8-10.8)
--- NOTE | 2023-03-17 14:52 | Emergency Department Note ---
Impression & Plan Lethargic, Hypomagnesemia ED Provider Note INFORMANT: Patient and daughter ED PROVIDER(S): Neal Conn DO CHIEF COMPLAINT: Change in mental status PLAN: Disposition: Admission Outpatient prescription management: none Discussion with: I spoke with the hospitalist, who will see the patient for a dmission/observation and further evaluation and consultation. MEDICAL DECISION MAKING: This is a 77-year-old female who presents to the ED via ambulance with the patient's daughter. The daughter reports that the patient has a home health nurse twice a week. The home health nurse was trying to get a urine sample today but the patient was too weak and lethargic to provide it. She was unable to stand. The daughter states that this happened previously with UTIs. The patient denies any headaches, chest pains, shortness of breath, vomiting or diarrhea. She does seem very weak on exam. She does open her eyes on command but seems to be drowsy. The patient denies any focal weakness. She moves her hands off the bed but is unable to raise her arms. She is unable to raise her legs off the bed but wiggles her feet. The patient has no abdominal tenderness on my exam. The lungs are clear. Heart is regular rate and rhythm. No trauma. A CBC did not show concerning leukocytosis or anemia. A TSH was normal. EKG shows sinus rhythm with a chronic left bundle branch block. Urine does not show infection. Troponin was negative for myocardial infarction. Thyroid function was normal. Magnesium was slightly low. CT scan of the head did not show intracranial hemorrhage or mass. Chest x-ray was negative for pneumonia. The patient was told the results of the test. The daughter states that the patient lives alone. She will be seen by the hospitalist for further evaluation and care. She was given IV magnesium, 1 g, for her hypomagnesemia. Triage Nursing notes reviewed. Vital Signs: reviewed Prior /Outside records reviewed: [none] Differential diagnosis: Differential includes acute coronary syndrome, myocardial infarction, CVA, TIA, anemia, infection, pneumonia, UTI, pyelonephritis, poor nutrition, dehydration, electrolyte disturbance,hypoglycemia. Diagnostics, as interpreted by me: 12 lead ECG: Normal sinus rhythm at a rate of 72. First-degree AV block. Left bundle branch block. No ST elevation. Normal QTc. No PVCs. Cardiac Monitoring ordered: Sinus rhythm in the 70s. Medical decision rules: [none] Imaging studies: Chest x-ray: No acute disease. No pneumonia. CT scan of the brain: No intracranial hemorrhage. Procedures: none. Critical care: none. HPI: See MDM above. PAST MEDICAL HISTORY: See Below PAST SURGICAL HISTORY: See Below SOCIAL HISTORY: See Below HOME MEDICATIONS:See Below ALLERGIES: See Below VITALS: See Below PHYSICAL EXAMINATION: See MDM for positive findings otherwise unremarkable. CONSTITUTIONAL/VITAL SIGNS: Reviewed GENERAL:done as appropriate INTEGUMENTARY: done as appropriate HEAD: done as appropriate EYES: done as appropriate RESPIRATORY: done as appropriate CARDIOVASCULAR:done as appropriate GI/ABDOMEN:done as appropriate EXTREMITIES: done as appropriate NEUROLOGICAL: done as appropriate PSYCHIATRIC:done as appropriate MUSCULOSKELETAL:done as appropriate TRIAGE NURSING DOCUMENTATION REVIEWED. 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 No pertinent family history Strain of rotator cuff of right shoulder Surgical History History of back surgery No pertinent past surgical history S/P appendectomy S/P colonoscopy S/P hysterectomy Status post right knee replacement Social History Smoking Status: Never smoker Second Hand Exposure: No; Do You Dip or Chew Tobacco: No; Hx Alcohol Use: No Hx Substance Use: No Preferred Language: Portuguese Communication Ability: Effective Visual Impairment: No Limitations Hearing Ability: Normal Director Of Laboratory Operations Required: No Beliefs That Will Affect Care: None marital status: / Current Living Situation: Alone Current Living Situation Comment: Pt lives alone. DaughterAry, takes care of patient. Home health. current occupational status: retired Feels Safe at Home: Yes Childhood Exposure to Second-Hand Smoke: No Diet: diabetic Dental Care, Regularly: No Physical Activity Frequency: Does not Exercise Seatbelt Use: always Sunscreen Use: No Assistive Devices: Cane, Denture - Upper, Denture - Lower, Walker and Wheelchair Allergies Allergies Allergy/AdvReac Type Severity Reaction Status Date / Time aspirin Allergy Severe Hives Verified 03/17/23 16:18 NSAIDS (Non-Steroidal Allergy Intermediate Hives Verified 03/17/23 16:18 Anti-Inflamma Penicillins Allergy Intermediate Hives Verified 03/17/23 16:18 fenofibrate Allergy Unknown ON PT MED Verified 03/17/23 16:18 LIST propoxyphene Allergy Unknown ON PT MED Verified 03/17/23 16:18 LIST Home Meds Home Medications Medication Instructions Recorded Confirmed carvedilol 3.125 mg tablet 3.125 mg PO BID 01/29/22 03/17/23 paroxetine HCl 20 mg tablet 20 mg PO HS 01/29/22 03/17/23 rosuvastatin 20 mg tablet 20 mg PO DAILY 01/29/22 03/17/23 ergocalciferol (vitamin D2) 1,250 1,250 mcg PO WK 01/14/23 03/17/23 mcg (50,000 unit) capsule (Vitamin D2) metformin 1,000 mg tablet 1,000 mg PO QAM 01/14/23 03/17/23 omeprazole 20 mg capsule,delayed 40 mg PO DAILY 01/14/23 03/17/23 release acetaminophen 500 mg tablet 500 mg PO Q8H PRN Pain 03/17/23 03/17/23 (Tylenol Extra Strength) cholecalciferol (vitamin D3) 25 25 mcg PO DAILY 03/17/23 03/17/23 mcg (1,000 unit) capsule (Vitamin D3) levothyroxine 25 mcg tablet 25 mcg PO QAM 03/17/23 03/17/23 (Synthroid) multivitamin with minerals-folic 1 tab PO QAM 03/17/23 03/17/23 acid 200 mcg chewable tablet (Adult Multivitamin Gummies) Previous Rx's Medication Instructions Recorded donepezil 5 mg tablet 5 mg PO HS #30 tabs 01/06/23 furosemide 20 mg tablet 20 mg PO QAM #30 tabs 01/29/23 potassium chloride 20 mEq 20 meq PO QAM #30 tabs 01/29/23 tablet,extended release(part/cryst) Results & Data (ED) Vital Signs Vital Signs - 24 hr 03/17/23 13:15 03/17/23 13:17 03/17/23 13:25 Temperature 36.4 C Temperature Source Oral Pulse Rate 73 72 Pulse Rate [Apical] 76 Respiratory Rate Respiratory Effort / Characteristics Respiratory Depth Blood Pressure 122/78 Blood Pressure [Right Arm] 122/76 Blood Pressure Mean 92 Blood Pressure Mean [Right Arm] 91 Pulse Oximetry 94 94 Oxygen Delivery Method Room Air Room Air Sepsis Recent Fever Within 48 Hours No Sepsis New/Unexplained Change in Mental Status No Sepsis Action Taken by Nursing No Action Required 03/17/23 13:53 03/17/23 16:35 03/17/23 16:35 Temperature Temperature Source Pulse Rate 72 Pulse Rate [Apical] 72 Respiratory Rate 20 20 Respiratory Effort / Characteristics Non-Labored Respiratory Depth Normal Blood Pressure 114/66 Blood Pressure [Right Arm] 114/66 Blood Pressure Mean 82 Blood Pressure Mean [Right Arm] 82 Pulse Oximetry 94 100 100 Oxygen Delivery Method Room Air Room Air Room Air Sepsis Recent Fever Within 48 Hours Sepsis New/Unexplained Change in Mental Status Sepsis Action Taken by Nursing Laboratory Data 03/17/23 13:30 03/17/23 14:22 Lab Results 03/17/23 03/17/23 03/17/23 Range/Units 11:30 13:30 13:30 WBC 5.64 (4.8-10.8) K/ul RBC 3.87 L (4.20-5.40) M/uL Hgb 12.6 (12.0-16.0) g/dl Hct 35.7 L (37.0-47.0) % MCV 92.2 (80.0-100.0) fL MCH 32.6 (25.0-34.0) pg MCHC 35.3 (32.0-36.0) g/dL RDW Std Deviation 45.8 (36.4-46.3) fL RDW Coeff of Sam 14.0 (11.5-14.5) % Plt Count 231 (130-400) K/uL MPV 10.7 (9.4-12.4) fL Immature Gran % (Auto) 0.2 % Neut % (Auto) 35.8 % Lymph % (Auto) 46.8 % [place] % (Auto) 12.8 % Eos % (Auto) 3.2 % Baso % (Auto) 1.2 % Neut # (Auto) 2.02 (1.40-6.50) K/uL Lymph # (Auto) 2.64 (1.2-3.4) K/uL [place] # (Auto) 0.72 H (0.11-0.59) K/uL Eos # (Auto) 0.18 (0-0.50) K/uL Baso # (Auto) 0.07 (0-0.2) K/uL Immature Gran # (Auto) 0.01 (0.01-0.20) K/uL PT 11.7 (9.0-12.0) Seconds INR 1.1 (0.9-1.1) APTT 24.1 (21.0-31.0) Seconds PTT Ratio 0.9 Sodium (136-145) mmol/L Potassium (3.5-5.1) mmol/L Chloride (98-107) mmol/L Carbon Dioxide (21-32) mmol/L Anion Gap (3-11) BUN (6-23) mg/dl Creatinine (0.6-1.2) mg/dl Est Cr Clr Drug Dosing ml/min Est GFR ( Amer) ml/min Est GFR (Non-Af Amer) ml/min BUN/Creatinine Ratio (10-20) Glucose (70-99(Fasting)) mg/dl Calcium (8.6-10.3) mg/dl Magnesium (1.7-2.4) mg/dl Total Bilirubin (0.2-1.0) mg/dl AST (13-39) U/L ALT (7-52) U/L Alkaline Phosphatase (34-104) U/L Troponin I High Sens (0-14) pg/ml Total Protein (6.0-8.3) gm/dl Albumin (3.4-5.0) gm/dl Globulin (2.5-4.0) gm/dl Albumin/Globulin Ratio (0.9-2) TSH (0.300-4.500) uIu/ml Urine Color Dark Yellow Urine Appearance Clear (Clear) Urine pH 5.0 (4.5-7.5) Ur Specific [place] 1.025 (1.000-1.030) Urine Protein Trace H (Negative) Urine Glucose (UA) Negative (Negative) Urine Ketones 1+ H (Negative) Urine Blood Negative (Negative) Urine Nitrite Negative (Negative) Urine Bilirubin Negative (Negative) Urine Urobilinogen Negative (Negative) Ur Leukocyte Esterase Negative (Negative) Urine WBC (Auto) 1-5 (0-5) /hpf Urine RBC (Auto) 0-4 (0-4) /hpf U Hyaline Cast (Auto) 1-5 (0-5) /lpf U Epithel Cells (Auto) >30 H (0-5) /lpf Urine Bacteria (Auto) 1+ H (Negative) 03/17/23 03/17/23 Range/Units 13:30 14:22 WBC (4.8-10.8) K/ul RBC (4.20-5.40) M/uL Hgb (12.0-16.0) g/dl Hct (37.0-47.0) % MCV (80.0-100.0) fL MCH (25.0-34.0) pg MCHC (32.0-36.0) g/dL RDW Std Deviation (36.4-46.3) fL RDW Coeff of Sam (11.5-14.5) % Plt Count (130-400) K/uL MPV (9.4-12.4) fL Immature Gran % (Auto) % Neut % (Auto) % Lymph % (Auto) % [place] % (Auto) % Eos % (Auto) % Baso % (Auto) % Neut # (Auto) (1.40-6.50) K/uL Lymph # (Auto) (1.2-3.4) K/uL [place] # (Auto) (0.11-0.59) K/uL Eos # (Auto) (0-0.50) K/uL Baso # (Auto) (0-0.2) K/uL Immature Gran # (Auto) (0.01-0.20) K/uL PT (9.0-12.0) Seconds INR (0.9-1.1) APTT (21.0-31.0) Seconds PTT Ratio Sodium 139 (136-145) mmol/L Potassium 3.6 (3.5-5.1) mmol/L Chloride 104 (98-107) mmol/L Carbon Dioxide 25 (21-32) mmol/L Anion Gap 10 (3-11) BUN 17 (6-23) mg/dl Creatinine 1.25 H (0.6-1.2) mg/dl Est Cr Clr Drug Dosing 44.8 ml/min Est GFR ( Amer) 47.4 ml/min Est GFR (Non-Af Amer) 40.9 ml/min BUN/Creatinine Ratio 13.6 (10-20) Glucose 120 H (70-99(Fasting)) mg/dl Calcium 9.3 (8.6-10.3) mg/dl Magnesium 1.4 L (1.7-2.4) mg/dl Total Bilirubin 0.8 (0.2-1.0) mg/dl AST 19 (13-39) U/L ALT 13 (7-52) U/L Alkaline Phosphatase 37 (34-104) U/L Troponin I High Sens 6.9 (0-14) pg/ml Total Protein 6.1 (6.0-8.3) gm/dl Albumin 3.7 (3.4-5.0) gm/dl Globulin 2.4 L (2.5-4.0) gm/dl Albumin/Globulin Ratio 1.5 (0.9-2) TSH 1.884 (0.300-4.500) uIu/ml Urine Color Urine Appearance (Clear) Urine pH (4.5-7.5) Ur Specific [place] (1.000-1.030) Urine Protein (Negative) Urine Glucose (UA) (Negative) Urine Ketones (Negative) Urine Blood (Negative) Urine Nitrite (Negative) Urine Bilirubin (Negative) Urine Urobilinogen (Negative) Ur Leukocyte Esterase (Negative) Urine WBC (Auto) (0-5) /hpf Urine RBC (Auto) (0-4) /hpf U Hyaline Cast (Auto) (0-5) /lpf U Epithel Cells (Auto) (0-5) /lpf Urine Bacteria (Auto) (Negative) Imaging Data Radiologist's Impression: Chest X-Ray 03/17/23 16:11 XR chest 1V portable HISTORY: 77 years-old Female ams acutely altered mental status COMPARISON: 01/23/2023 TECHNIQUE: AP view of the chest FINDINGS: Cardiomediastinal and hilar silhouettes are within normal limits. Mild pleural thickening at the lung apices. No pneumothorax, pleural effusion, airspace consolidation or overt pulmonary edema. Degenerative changes of the shoulders and spine. IMPRESSION: No acute process. ACT 112: Negative or not required by law. The above report was generated using voice recognition software. It may contain grammatical, syntax or spelling errors. Electronically signed by: Noah Fletcher M.D. 03/17/2023 4:[address] 03/17/23 16:11 CT head/brain wo con CLINICAL HISTORY: 77 years-old Female with ams. Acutely altered mental status TECHNIQUE: Multiple axial CT images of the head were obtained without contrast. A dose lowering technique was utilized adhering to the principles of ALARA. CT DOSE: 625.80 mGy.cm COMPARISON: 01/23/2023 FINDINGS: No acute intracranial hemorrhage, midline shift, intracranial mass, hydrocephalus, territorial ischemia or abnormal extra-axial collection. Involutional changes with white matter hypodensities suggestive of chronic micro vascular ischemic disease. Encephalomalacia related to chronic frontal parietal and left cerebellar infarcts again noted. Additional tiny chronic infarcts of the right cerebellum. The calvarium is intact. The paranasal sinuses, mastoid air cells, and middle ear cavities are clear. IMPRESSION: 1. No acute intracranial abnormality. 2. Chronic findings as above. ACT 112: Negative or not required by law. The above report was generated using voice recognition software. It may contain grammatical, syntax or spelling errors. Electronically signed by: Noah Fletcher M.D. 03/17/2023 4:40 PM Discharge Plan Visit Data Chief Complaint: Altered Mental Status Stated Complaint: lethargic; change in MS ED Provider: Neal Conn Discharge Problem: Lethargic, Hypomagnesemia Patient Disposition: Being Evaluated by Hospitalist Forms Stand Alone Forms: [facility], Virtual Emergency Department, Important Visit Information Prescriptions Prescriptions: No Action donepezil 5 mg tablet 5 mg PO HS Qty: 30 5RF carvedilol 3.125 mg tablet 3.125 mg PO BID Rx Instructions: must administer with a meal/food paroxetine HCl 20 mg tablet 20 mg PO HS rosuvastatin 20 mg tablet 20 mg PO DAILY metformin 1,000 mg tablet 1,000 mg PO QAM omeprazole 20 mg capsule,delayed release(DR/EC) 40 mg PO DAILY ergocalciferol (vitamin D2) [Vitamin D2] 1,250 mcg (50,000 unit) capsule 1,250 mcg PO WK potassium chloride 20 mEq tablet,ER particles/crystals 20 meq PO QAM Qty: 30 0RF furosemide 20 mg tablet 20 mg PO QAM Qty: 30 2RF Rx Instructions: for fluid/edema of legs; note lower dose. acetaminophen [Tylenol Extra Strength] 500 mg Tablet 500 mg PO Q8H PRN (Reason: Pain) cholecalciferol (vitamin D3) [Vitamin D3] 25 mcg (1,000 unit) Capsule 25 mcg PO DAILY Adult Multivitamin Gummies 200 mcg Tablet,Chewable 1 tab PO QAM levothyroxine [Synthroid] 25 mcg tablet 25 mcg PO QAM Rx Instructions: for underactive thyroid gland Referrals Referrals: Bonifacio Ibanez DO [Primary Care Provider] -
[2023-03-17 14:56] LABS: INR 1.1 (0.9-1.1); Partial Thromboplastin Ratio 0.9; Partial Thromboplastin Time 24.1 Seconds (21.0-31.0); Prothrombin Time 11.7 Seconds (9.0-12.0)
[2023-03-17 14:59] LABS: Alanine Aminotransferase 13 U/L (7-52); Albumin Globulin Ratio 1.5 (0.9-2); Albumin Level 3.7 gm/dl (3.4-5.0); Alkaline Phosphatase 37 U/L (34-104); Anion Gap 10 (3-11); Aspartate Aminotransferase 19 U/L (13-39); BUN Creatinine Ratio 13.6 (10-20); Bilirubin,Total 0.8 mg/dl (0.2-1.0); Blood Urea Nitrogen 17 mg/dl (6-23); Calcium 9.3 mg/dl (8.6-10.3); Carbon Dioxide 25 mmol/L (21-32); Chloride 104 mmol/L (98-107); Creatinine Clr Calc Pharmacy 44.8 ml/min; Est GFR (African American) 47.4 ml/min; Est GFR (Non-African American) 40.9 ml/min; Globulin 2.4 gm/dl (2.5-4.0); Glucose 120 mg/dl (70-99(Fasting)); Magnesium 1.4 mg/dl (1.7-2.4); Potassium 3.6 mmol/L (3.5-5.1); Sodium 139 mmol/L (136-145); Total Protein 6.1 gm/dl (6.0-8.3)
[2023-03-17 15:04] LABS: Troponin I High Sensitivity 6.9 pg/ml (0-14)
[2023-03-17 15:14] LABS: Appearance Urine Clear (Clear); Bacteria Urine Automated 1+ (Negative); Bilirubin Urine Negative (Negative); Blood Urine Negative (Negative); Color Urine Dark Yellow; Epithelial Cell Urine Auto >30 /lpf (0-5); Glucose Urine UA Negative (Negative); Ketones Urine 1+ (Negative); Leukocyte Esterase Urine Negative (Negative); Nitrite Urine Negative (Negative); Protein Urine Trace (Negative); RBC Urine Automated 0-4 /hpf (0-4); Specific Gravity Urine 1.025 (1.000-1.030); Urobilinogen Urine Negative (Negative)
--- NOTE | 2023-03-17 16:42 | CT Scan Report ---
CT head/brain wo con CLINICAL HISTORY: 77 years-old Female with ams. Acutely altered mental status TECHNIQUE: Multiple axial CT images of the head were obtained without contrast. A dose lowering tech nique was utilized adhering to the principles of ALARA. CT DOSE: 625.80 mGy.cm COMPARISON: 01/23/2023 FINDINGS: No acute intracranial hemorrhage, midline shift, intracranial mass, hydrocephalus, territorial ischem ia or abnormal extra-axial collection. Involutional changes with white matter hypodensities suggestiv e of chronic microvascular ischemic disease. Encephalomalacia related to chronic frontal parietal and left cerebellar infarcts again noted. Additional tiny chronic infarcts of the right cerebellum. The calvarium is intact. The paranasal sinuses, mastoid air cells, and middle ear cavities are clear. IMPRESSION: 1. No acute intracranial abnormality. 2. Chronic findings as above. ACT 112: Negative or not required by law. The above report was generated using voice recognition software. It may contain grammatical, syntax o r spelling errors. Electronically signed by: Noah Fletcher M.D. 03/17/2023 4:40 PM
--- NOTE | 2023-03-17 16:43 | XRay Report ---
XR chest 1V portable HISTORY: 77 years-old Female ams acutely altered mental status COMPARISON: 01/23/2023 TECHNIQUE: AP view of the chest FINDINGS: Cardiomediastinal and hilar silhouettes are within normal limits. Mild pleural thickening at the lung apices. No pneumothorax, pleural effusion, airspace consolidation or overt pulmonary edema. Degenera tive changes of the shoulders and spine. IMPRESSION: No acute process. ACT 112: Negative or not required by law. The above report was generated using voice recognition software. It may contain grammatical, syntax o r spelling errors. Electronically signed by: Noah Fletcher M.D. 03/17/2023 4:42 PM
[2023-03-17] MEDS ORDERED: MAGNESIUM SULFATE / D5W 1 GM/100 ML BAG IV STA ×2 (16:52→17:34)
--- NOTE | 2023-03-17 16:58 | History & Physical Report ---
Date of Service March 17, 2023 Assessment & Plan (1) Generalized weakness: Plan: -Admit to med/tele -Currently stable -Patient's family has noted increased generalized weakness over the past week -Differential is broad at this time and includes but is not limited to CVA, MS vs Myasthenia Gravis, infection, electrolyte abnormalities, progression of known dementia, undiagnosed SHAILESH, poor sleep -No leukocytosis, chest xray and UA negative, no GI symptoms, no signs of cellulitis or wounds -Her hypomagnesemia is likely contributing to her weakness, but will need further workup -Will obtain STAT VBG, phos, procal, ESR/CRP, ammonia level, myasthenia panel, and tick borne panel -Will give another 1gm IV mag-sulfate and will give 1L LR at 80 mL/hr as she appears mildly dehydrated on exam -Patient had an outpatient MRI of the brain wo/w con on 03/05 ordered by Neurology to FU on abnormal findings on her MRI brain from 01/15 >The MRI on 03/05 was read as "1. No evidence of acute infarct. 2. Increased pachymeningeal thickening and enhancement which is nonspecific but may represent intracranial hypotension although infection cannot be entirely excluded. No leptomeningeal enhancement is seen.". >No meningeal symptoms today, daughter confirms that patient is at her cognitive baseline, just more fatigued than normal. For now will wait to obtain repeat MRI of the brain as the patient will require medications for claustrophobia which could complicate her current workup. If her current workup is inconclusive would consider further imaging and workup for TIRE BUSTER infection -BL SCD's for DVT PPX, will hold chemical PPX overnight in case of continued workup tomorrow -Will obtain am VBG for further monitoring of hypercapnia -Fall precautions, PT/OT and case management consults placed -HH and DMII diet, aspiration precautions (2) Dementia: Plan: -Continue HS Donepezil and Paroxetine (3) Hypomagnesemia: Plan: -Noted to be 1.4 today -Likely due to poor oral intake and lasix use -S/P 1gm IV mag-sulfate in the ED, will give another 1gm IV on admission (4) Diabetes: Plan: -Hold metformin -Monitor BSG ACHS, goal is 110-160 -Start 5 units lantus BID, CF of 50, hold CR for now to prevent hypoglycemia -DM II and HH diet -Adjust regimen as needed (5) GERD (gastroesophageal reflux disease): Plan: -Continue pantoprazole (6) CHF (congestive heart failure): Plan: -Currently Euvolemic-dehydrated -Will hold lasix on admission and give light IV hydration -Monitor volume status and restart home PO lasix when appropiate (7) Hypothyroidism: Plan: -TSH WNL -Continue levothyroxine (8) HTN (hypertension): Plan: -Stable -Continue carvedilol (9) HLD (hyperlipidemia): Plan: -Continue crestor Plan The patient was discussed with Dr. Baer at the time of the admission History of Present Illness Chief Complaint: Lethargy/generalized weakness Primary Care Provider: Bonifacio Ibanez DO Huerta is a 77 y/o F W/PMH significant for HFpEF, dementia associated with gait apraxia, MDD, DM II, GERD, HLD, HTN, ischemic CVA, bladder spasms, Infarcted left kidney who presented to the [facility] ED on 03/17/23 with her Daughter due to worsening fatigue/generalized weakness. In the ED vital were stable. Labs were significant for glucose of 120, magnesium of 1.4, TSH WNL, and UA without signs of infection. CT head/brain wo con was read as "1. No acute intracranial abnormality. 2. Chronic findings as above.". Chest xray was read as "No acute process.". Prior to admission the patient was given 1gm IV mag-sulfate. At the time of the exam the patient was sitting in bed in no acute distress, eating jeanette crackers, with her daughter standing bedside. The majority of the history was obtained from the patient's daughter due to her weakness. The patient's daughter states that the patient has been more fatigued and generally weak over the past week. She has home health come approximately 2 times weekly as she lives alone but family checks on her daily and her daughter has cameras in the home to watch her. The home health nurses were concerned she may have a UTI last week but the patient was too weak to stand for a urine sample. They called her Urologist again this am who recommended she be evaluated in the ED d ue to her ongoing weakness. The patient's daughter states that the weakness has been stable over the past week. The patient uses a cane and walker for ambulation. She has had no recent medication changes and her daughter states that the patient seems to be eating well. She has presented like this previously when she was admitted for UTI's, her daughter is surprised to hear her UA was negative today. The patient currently sleeps in a recliner as she gets SOB when lying flat. Her daughter denies the patient being evaluated for sleep apnea previously. The patient denies recent fever, chills, chest pain, SOB, abd pain, nausea vomiting, diarrhea, dysuria, hematuria, melena, worsening LE swelling, and recent trauma. Her chronic low back pain has been bothering her, her daughter states that the patient previously had rods placed and has chronic low back pain. Her daughter would be interested in trying to her additional home health if possible. The patient is a full code and her daughter is her POA. Please refer to Dr. Baer's attestation for any changes to the treatment plan Allergies Allergy/AdvReac Type Severity Reaction Status Date / Time aspirin Allergy Severe Hives Verified 03/17/23 16:18 NSAIDS (Non-Steroidal Allergy Intermediate Hives Verified 03/17/23 16:18 Anti-Inflamma Penicillins Allergy Intermediate Hives Verified 03/17/23 16:18 fenofibrate Allergy Unknown ON PT MED Verified 03/17/23 16:18 LIST propoxyphene Allergy Unknown ON PT MED Verified 03/17/23 16:18 LIST Home Medications Medication Instructions Recorded Confirmed Type carvedilol 3.125 mg tablet 3.125 mg PO BID 01/29/22 03/17/23 History paroxetine HCl 20 mg tablet 20 mg PO HS 01/29/22 03/17/23 History rosuvastatin 20 mg tablet 20 mg PO DAILY 01/29/22 03/17/23 History donepezil 5 mg tablet 5 mg PO HS #30 tabs 01/06/23 03/17/23 Rx ergocalciferol (vitamin D2) 1,250 1,250 mcg PO WK 01/14/23 03/17/23 History mcg (50,000 unit) capsule (Vitamin D2) metformin 1,000 mg tablet 1,000 mg PO QAM 01/14/23 03/17/23 History omeprazole 20 mg capsule,delayed 40 mg PO DAILY 01/14/23 03/17/23 History release furosemide 20 mg tablet 20 mg PO QAM #30 tabs 01/29/23 03/17/23 Rx potassium chloride 20 mEq 20 meq PO QAM #30 tabs 01/29/23 03/17/23 Rx tablet,extended release(part/cryst) acetaminophen 500 mg tablet 500 mg PO Q8H PRN Pain 03/17/23 03/17/23 History (Tylenol Extra Strength) cholecalciferol (vitamin D3) 25 25 mcg PO DAILY 03/17/23 03/17/23 History mcg (1,000 unit) capsule (Vitamin D3) levothyroxine 25 mcg tablet 25 mcg PO QAM 03/17/23 03/17/23 History (Synthroid) multivitamin with minerals-folic 1 tab PO QAM 03/17/23 03/17/23 History acid 200 mcg chewable tablet (Adult Multivitamin Gummies) 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 No pertinent family history Strain of rotator cuff of right shoulder Surgical History History of back surgery No pertinent past surgical history S/P appendectomy S/P colonoscopy S/P hysterectomy Status post right knee replacement Social History Smoking Status: Never smoker Second Hand Exposure: No; Do You Dip or Chew Tobacco: No; Hx Alcohol Use: No Hx Substance Use: No Preferred Language: Tamazight Communication Ability: Effective Visual Impairment: No Limitations Hearing Ability: Normal Communication Studies Professor Required: No Beliefs That Will Affect Care: None marital status: / Current Living Situation: Alone Current Living Situation Comment: [employer] current occupational status: retired Other Information That Helps Us Care for You: No Feels Safe at Home: Yes Childhood Exposure to Second-Hand Smoke: No Diet: diabetic Dental Care, Regularly: No Physical Activity Frequency: Does not Exercise Seatbelt Use: always Sunscreen Use: No Assistive Devices: Cane, Glasses and Walker Physical Exam Physical Exam: Physical Exam: General: In no acute distress, fatigued and falls asleep easily, stated age, chronically ill-appearing but non-toxic HEENT: Normocephalic, atraumatic, no scleral icterus, pupils around round, symmetrical, and reactive to light, moist mucus membranes, trachea midline, no thyromegaly Chest/Pulm: No respiratory distress, symmetrical chest expansion, clear breath sounds throughout Cardiac: RRR, no murmurs noted Abdomen: Negative for ascites and bruising, normoactive bowel sounds, soft, non-tender to palpation throughout Musculoskeletal: Symmetrical and without signs of acute trauma, patient is tender to palpation over the lumbar spine and BL paraspinal muscles without signs of acute trauma, patient with decreased but symmetrical ROM in the BL upper and lower extremities Extremities: Radial, dorsalis pedis, and posterior tibial pulses are intact and symmetrical, chronic and symmetrical edema noted in the BL LE's Skin: Warm, dry, no rashes , lesions, or scars noted Neuro: Alert and oriented to person, place, and year, thought it was may, no focal defects, CN II-XII tested and intact, patient with progressive and symmetrical upper extremity weakness during pronator drift test, dropped both arms after approximately 5-10 seconds, answers questions appropriately Psych: No acute distress, calm and cooperative during the exam Results & Data Results & Data Vital Signs (Past 12 Hours) Vital Signs Temp Pulse Pulse Resp BP BP Pulse Ox 03/17/23 16:35 72 20 114/66 100 03/17/23 16:35 72 20 114/66 100 03/17/23 13:53 94 03/17/23 13:25 76 122/76 94 03/17/23 13:17 36.4 C 72 122/78 94 03/17/23 13:15 73 O2 Del Method 03/17/23 16:35 Room Air 03/17/23 16:35 Room Air 03/17/23 13:53 Room Air 03/17/23 13:25 Room Air 03/17/23 13:17 Room Air 03/17/23 13:15 Laboratory Results Abnormal lab results 03/17/23 03/17/23 03/17/23 Range/Units 11:30 13:30 14:22 RBC 3.87 L (4.20-5.40) M/uL Hct 35.7 L (37.0-47.0) % [place] # (Auto) 0.72 H (0.11-0.59) K/uL Creatinine 1.25 H (0.6-1.2) mg/dl Glucose 120 H (70-99(Fasting)) mg/dl Magnesium 1.4 L (1.7-2.4) mg/dl Globulin 2.4 L (2.5-4.0) gm/dl Urine Protein Trace H (Negative) Urine Ketones 1+ H (Negative) U Epithel Cells (Auto) >30 H (0-5) /lpf Urine Bacteria (Auto) 1+ H (Negative) Diagnostic Findings Chest X-Ray 03/17/23 16:11 XR chest 1V portable HISTORY: 77 years-old Female ams acutely altered mental status COMPARISON: 01/23/2023 TECHNIQUE: AP view of the chest FINDINGS: Cardiomediastinal and hilar silhouettes are within normal limits. Mild pleural thickening at the lung apices. No pneumothorax, pleural effusion, airspace consolidation or overt pulmonary edema. Degenerative changes of the shoulders and spine. IMPRESSION: No acute process. ACT 112: Negative or not required by law. The above report was generated using voice recognition software. It may contain grammatical, syntax or spelling errors. Electronically signed by: Noah Fletcher M.D. 03/17/2023 4:[address] 03/17/23 16:11 CT head/brain wo con CLINICAL HISTORY: 77 years-old Female with ams. Acutely altered mental status TECHNIQUE: Multiple axial CT images of the head were obtained without contrast. A dose lowering technique was utilized adhering to the principles of ALARA. CT DOSE: 625.80 mGy.cm COMPARISON: 01/23/2023 FINDINGS: No acute intracranial hemorrhage, midline shift, intracranial mass, hydrocephalus, territorial ischemia or abnormal extra-axial collection. Involutional changes with white matter hypodensities suggestive of chronic microvascular ischemic disease. Encephalomalacia related to chronic frontal parietal and left cerebellar infarcts again noted. Additional tiny chronic infarcts of the right cerebellum. The calvarium is intact. The paranasal sinuses, mastoid air cells, and middle ear cavities are clear. IMPRESSION: 1. No acute intracranial abnormality. 2. Chronic findings as above. ACT 112: Negative or not required by law. The above report was generated using voice recognition software. It may contain grammatical, syntax or spelling errors. Electronically signed by: Noah Fletcher M.D. 03/17/2023 4:40 PM ECG Additional Comments: Sinus rhythm with 1st degree A-V block Left bundle branch block Abnormal ECG When compared with ECG of 23-JAN-2023 15:01, T wave inversion no longer evident in Lateral leads Code Status & VTE Plan Code Status Full code VTE Prophylaxis Plan VTE Prophylaxis will be ordered: Yes Supervising Physician Co-Signing Physician Notes Patient seen and examined, chart reviewed, case discussed with Neal Mohr PA-C and I agree with the assessment and plan as above except as otherwise noted. Labs and images reviewed. Deanan is a 77-year-old female with a past medical history of dementia, ataxia, diabetes, GERD, CVA, heart failure with preserved ejection fraction who presented with chronically increasing fatigue and weakness. Patient has not been able to walk independently due to global weakness, denies focal weakness. At time of hospitalist admission does not a leukocytosis or fever, no evidence of infectious weakness. She does fatigue easily so is being followed for possible myasthenia, however does not have ocular palsy/fatiguing on exam. She is hemodynamically stable and without volume contraction or elevated BUN/creatinine ratio. Potassium is low at 3.0, repleted. Agree with continued work-up and MRI as above. PT/OT pending PG Care Time/CCT Total # of Minutes Spent Total Time Spent with Patient: Total time spent is greater than 50% in coordination of care (as documented) at patient's floor/unit and/or counseling patient: C[place] [address] INT INP/OBS CARE 3/75MIN Patient Type Established Medical Decision Making High Complexity Diagnoses Generalized weakness R53.1 Dementia F03.90 Hypomagnesemia E83.42 Diabetes E11.9 GERD (gastroesophageal reflux disease) K21.9 CHF (congestive heart failure) I50.9 Hypothyroidism E03.9 HTN (hypertension) I10 HLD (hyperlipidemia) E78.5
[2023-03-17] MEDS ORDERED: LIDOCAINE 5% 1 PATCH TD STA (17:30)
[2023-03-17] MEDS ORDERED: ACETAMINOPHEN 325 MG TAB PO STA (17:30)
[2023-03-17] MEDS ORDERED: CARBOHYDRATES FOR HYPOGLYCEMIA PO PRN (17:33)
[2023-03-17] MEDS ORDERED: GLUCOSE 10 TAB/TUBE PO PRN (17:33)
[2023-03-17] MEDS ORDERED: GLUCAGON FOR INJ 1 MG VIAL SQ PRN (17:33)
[2023-03-17] MEDS ORDERED: DEXTROSE 50% 50 ML SYRINGE IV PRN (17:33)
[2023-03-17] MEDS ORDERED: GLUCOSE 40% GEL 15 GM TUBE PO PRN (17:33)
[2023-03-17] MEDS ORDERED: LACTATED RINGER'S 1,000 ML IV STA (17:34)
[2023-03-17 17:39] LABS: C Reactive Protein < 0.50 mg/dl (0-0.5); Phosphorus 3.3 mg/dl (2.5-4.9)
[2023-03-17 18:00] LABS: Base Excess VBG 2.4 mEq/L; HCO3 VBG 26 mmol/L; Oxygen Saturation VBG < 60.0 %; PCO2 VBG 38 mmHg (38-50); PO2 VBG 31 mmHg; pH VBG 7.45 (7.36-7.41)
--- NOTE | 2023-03-17 18:06 | Electrocardiogram Report ---
Test Reason : Blood Pressure : / mmHG Vent. Rate : 072 BPM Atrial Rate : 072 BPM P-R Int : 216 ms QRS Dur : 144 ms QT Int : 448 ms P-R-T Axes : 038 -07 095 degrees QTc Int : 490 ms Sinus rhythm with 1st degree A-V block Left bundle branch block Abnormal ECG When compared with ECG of 23-JAN-2023 15:01, T wave inversion no longer evident in Lateral leads Confirmed by Russel Ruggiero ([id number]) on 03/17/2023 6:06:30 PM Referred By: REFERRED SELF Confirmed By:Boogie Ruggiero
--- NOTE | 2023-03-17 18:29 | XRay Report ---
XR lumbar spine 2-3V HISTORY: 77 years-old Female acute on chronic back pain COMPARISON: CT 01/14/2023 TECHNIQUE: 3 views of the lumbar spine FINDINGS: Demineralized appearance of the bones. Posterior interbody rods and fusion hardware redemonstrated at L3-L5. No evidence of hardware fracture or loosening. Grade 1 anterolisthesis of L4 on L5 is unchang ed. Multilevel and vertebral disc space narrowing, moderate at L4-L5 and L5-S1. Severe facet arthrosi s of the mid to lower lumbar spine. IMPRESSION: 1. No acute fracture or subluxation. 2. Unremarkable appearance of the posterior interbody matthew and screw fusion hardware at L3-L5. ACT 112: Negative or not required by law. The above report was generated using voice recognition software. It may contain grammatical, syntax o r spelling errors. Electronically signed by: Noah Fletcher M.D. 03/17/2023 6:27 PM
[2023-03-17 18:44] LABS: Procalcitonin < 0.05 ng/ml (0-0.5)
[2023-03-17 18:52] LABS: Lyme Ab IgM w/WB Rflx Negative (Negative)
[2023-03-17 18:54] LABS: Lyme Ab IgG w/WB Rflx Negative (Negative)
[2023-03-17] MEDS: carvediloL 3.125 MG TAB PO SCH (20:32)
[2023-03-17] MEDS: DONEPEZIL HCL 5 MG TAB PO SCH (20:32)
[2023-03-17] MEDS: PARoxetine HCL 20 MG TAB PO SCH (20:32)
[2023-03-17] MEDS: LANTUS PER UNIT CHARGE SQ SCH (20:33)
[2023-03-17] MEDS: INSULIN ASPART PER UNIT CHARGE SC SCH (20:34)
[2023-03-18] MEDS: LEVOTHYROXINE SODIUM 25 MCG TABLET PO SCH (05:44)
[2023-03-18 07:07] LABS: Base Excess VBG 3.1 mEq/L; HCO3 VBG 27 mmol/L; PCO2 VBG 38 mmHg (38-50); PO2 VBG 68 mmHg; pH VBG 7.46 (7.36-7.41)
[2023-03-18 07:21] LABS: Basophils # (auto) 0.06 K/uL (0-0.2); Basophils % (auto) 1.2 %; Eosinophils # (auto) 0.25 K/uL (0-0.50); Eosinophils % (auto) 5.1 %; Hematocrit (blood only) 32.3 % (37.0-47.0); Hemoglobin 10.9 g/dl (12.0-16.0); Immature Granulocytes # (auto) 0.01 K/uL (0.01-0.20); Immature Granulocytes % (auto) 0.2 %; Lymphocytes # (auto) 2.14 K/uL (1.2-3.4); Lymphocytes % (auto) 43.2 %; Mean Corpuscular Hemoglobin 30.8 pg (25.0-34.0); Mean Corpuscular Hgb Conc 33.7 g/dL (32.0-36.0); Mean Corpuscular Volume 91.2 fL (80.0-100.0); Mean Platelet Volume 10.4 fL (9.4-12.4); Monocytes # (auto) 0.65 K/uL (0.11-0.59); Monocytes % (auto) 13.1 %; Neutrophils # (auto) 1.84 K/uL (1.40-6.50); Neutrophils % (auto) 37.2 %; Platelet Count 195 K/uL (130-400); RDW Coefficient of Variation 13.7 % (11.5-14.5); RDW Standard Deviation 45.3 fL (36.4-46.3); Red Blood Count 3.54 M/uL (4.20-5.40); White Blood Count 4.95 K/ul (4.8-10.8)
[2023-03-18 07:40] LABS: Albumin Globulin Ratio 1.7 (0.9-2); Albumin Level 3.5 gm/dl (3.4-5.0); BUN Creatinine Ratio 13.9 (10-20); Bilirubin,Total 0.7 mg/dl (0.2-1.0); Creatinine Clr Calc Pharmacy 54.6 ml/min; Est GFR (African American) 61.3 ml/min; Est GFR (Non-African American) 52.9 ml/min; Globulin 2.1 gm/dl (2.5-4.0); Magnesium 1.8 mg/dl (1.7-2.4); Total Protein 5.6 gm/dl (6.0-8.3)
[2023-03-18 07:44] LABS: Prothrombin Time 11.4 Seconds (9.0-12.0)
[2023-03-18] MEDS: INSULIN ASPART PER UNIT CHARGE SC SCH ×4 (08:01→20:01)
[2023-03-18] MEDS: carvediloL 3.125 MG TAB PO SCH ×2 (08:03→19:57)
[2023-03-18] MEDS: LANTUS PER UNIT CHARGE SQ SCH ×2 (08:03→20:03)
[2023-03-18] MEDS: ROSUVASTATIN CALCIUM 20 MG TAB PO SCH (08:04)
[2023-03-18] MEDS: PANTOprazole 40 MG TAB PO SCH (08:04)
[2023-03-18] MEDS ORDERED: POTASSIUM CHLORIDE CRTAB 20 MEQ TABCR PO SCH (09:00)
--- NOTE | 2023-03-18 12:47 | Hospitalist Progress Note ---
Date of Service March 18, 2023 Assessment & Plan (1) Generalized weakness: Plan: Supportive care. OT and PT assessments. Correct hypomagnesemia and hypokalemia. No CO2 retention on venous blood gas. Recent brain MRI scans negative for acute findings . She does not appear acutely ill (2) Dementia: Plan: Stable. Continue Donepezil and Paroxetine (3) Hypomagnesemia: Plan: Corrected. Serial labs (4) Diabetes: Plan: Diabetic diet. Metformin is on hold. Low-dose Lantus has been started while hospitalized. Glucose 134 this morning. (5) GERD (gastroesophageal reflux disease): Plan: Stable . Continue pantoprazole (6) CHF (congestive heart failure): Plan: Chronic diastolic CHF. Currently stable. Monitor intake and output. (7) Hypothyroidism: Plan: TSH WNL . Continue levothyroxine (8) HTN (hypertension): Plan: Stable . Continue carvedilol (9) HLD (hyperlipidemia): Plan: Stable. Continue crestor Plan Patient believes she will be going to [facility]. OT and PT assessments requested Admission and Anticipated Discharge Date Admission Date: March 17, 2023 Subjective Alert and oriented. No new problems. OT and PT assessments are pending. She states she will be going to [facility]. Magnesium corrected to 1.8. Potassium remains low at 3.0. Oral potassium replacement increased. IV fluids discontinued. She is on low-dose Lantus while metformin is being held. Glucose 134 this morning. Admission head CT scan negative for any acute findings. Review of Systems Review of Systems: Constitutional-no fever or chills ENT-no blurred vision, no double vision, no epistaxis, no sore throat Respiratory-no cough, no wheezing, no shortness of breath Cardiac-no palpitations, no chest pain, no syncope GI-no nausea, vomiting, diarrhea, melena, hematochezia -no urinary retention, no urinary incontinence, no dysuria, no hematuria Musculoskeletal-no joint pain, no muscle tenderness Skin-no bruising, no rashes, no pruritus Neuro-no isolated weakness, no paresthesia, no weakness Psych-no depression, no anxiety Physical Exam Physical Exam: General-alert and oriented x3, no fevers, no chills HEENT-head atraumatic and normocephalic, pupils equal and reactive to light, extraocular muscles intact Neck-no lymphadenopathy or thyromegaly, trachea midline Chest-clear to auscultation percussion. No rales wheezing or rhonchi Cardiac-regular rate and rhythm, normal S1 and S2 Abdomen-normal bowel sounds, nontender, no hepatosplenomegaly Extremities-no cyanosis, clubbing, or edema Neuro-cranial nerves II through XII intact, motor and sensory function within normal limits, strength symmetrical , no focal deficits Psych-normal affect, normal mood Results & Data Results & Data Vital Signs (Past 12 Hours) Vital Signs Temp Pulse Pulse Resp BP Pulse Ox O2 Del Method 03/18/23 11:05 36.9 C 66 18 102/66 96 Room Air 03/18/23 10:02 Room Air 03/18/23 07:44 36.6 C 69 18 114/67 94 Room Air 03/18/23 07:00 69 03/18/23 04:41 36.4 C L 82 20 96/58 L 92 Room Air Laboratory Results 03/18/23 06:22 03/18/23 06:22 PG Care Time/CCT Total # of Minutes Spent Total Time Spent with Patient: Total time spent is greater than 50% in coordination of care (as documented) at patient's floor/unit and/or counseling patient: Coding Level of Care Code 54716 SUB INP/OBS CARE 3/50MIN Diagnoses Generalized weakness R53.1 Dementia F03.90 Hypomagnesemia E83.42 Diabetes E11.9 GERD (gastroesophageal reflux disease) K21.9 CHF (congestive heart failure) I50.9 Hypothyroidism E03.9 HTN (hypertension) I10 HLD (hyperlipidemia) E78.5
[2023-03-18] MEDS: CIPROFLOXACIN / D5W 400 MG/200 ML BAG IV SCH (14:52)
[2023-03-18] MEDS ORDERED: ACETAMINOPHEN 325 MG TAB PO PRN (19:51)
[2023-03-18] MEDS: POTASSIUM CHLORIDE CRTAB 20 MEQ TABCR PO SCH (19:56)
[2023-03-18] MEDS: PARoxetine HCL 20 MG TAB PO SCH (19:57)
[2023-03-18] MEDS: DONEPEZIL HCL 5 MG TAB PO SCH (19:57)
[2023-03-18] MEDS ORDERED: LIDOCAINE 5% 1 PATCH TD STA (21:24)
[2023-03-19] MEDS: CIPROFLOXACIN / D5W 400 MG/200 ML BAG IV SCH ×2 (01:54→14:35)
[2023-03-19] MEDS: LEVOTHYROXINE SODIUM 25 MCG TABLET PO SCH (05:39)
[2023-03-19 07:57] LABS: Basophils # (auto) 0.05 K/uL (0-0.2); Eosinophils # (auto) 0.28 K/uL (0-0.50); Eosinophils % (auto) 5.5 %; Hematocrit (blood only) 33.8 % (37.0-47.0); Hemoglobin 11.6 g/dl (12.0-16.0); Lymphocytes # (auto) 2.07 K/uL (1.2-3.4); Lymphocytes % (auto) 40.7 %; Mean Corpuscular Hemoglobin 30.7 pg (25.0-34.0); Mean Corpuscular Hgb Conc 34.3 g/dL (32.0-36.0); Mean Corpuscular Volume 89.4 fL (80.0-100.0); Mean Platelet Volume 10.3 fL (9.4-12.4); Monocytes % (auto) 13.8 %; Neutrophils # (auto) 1.99 K/uL (1.40-6.50); Platelet Count 190 K/uL (130-400); RDW Coefficient of Variation 13.6 % (11.5-14.5); RDW Standard Deviation 44.5 fL (36.4-46.3); Red Blood Count 3.78 M/uL (4.20-5.40); White Blood Count 5.09 K/ul (4.8-10.8)
[2023-03-19 08:18] LABS: BUN Creatinine Ratio 13.1 (10-20); Calcium 9.3 mg/dl (8.6-10.3); Creatinine Clr Calc Pharmacy 52.1 ml/min; Est GFR (African American) 57.2 ml/min; Est GFR (Non-African American) 49.3 ml/min; Magnesium 1.5 mg/dl (1.7-2.4); Potassium 3.5 mmol/L (3.5-5.1)
[2023-03-19] MEDS: INSULIN ASPART PER UNIT CHARGE SC SCH ×4 (08:31→20:26)
[2023-03-19] MEDS: carvediloL 3.125 MG TAB PO SCH ×2 (08:32→20:29)
[2023-03-19] MEDS: PANTOprazole 40 MG TAB PO SCH (08:32)
[2023-03-19] MEDS: ROSUVASTATIN CALCIUM 20 MG TAB PO SCH (08:32)
[2023-03-19] MEDS: POTASSIUM CHLORIDE CRTAB 20 MEQ TABCR PO SCH ×2 (08:32→20:29)
[2023-03-19] MEDS: LANTUS PER UNIT CHARGE SQ SCH (08:32)
[2023-03-19] MEDS: MAGNESIUM OXIDE 400 MG TAB PO SCH ×2 (10:47→20:28)
--- NOTE | 2023-03-19 14:33 | Hospitalist Progress Note ---
Date of Service March 19, 2023 Assessment & Plan (1) Generalized weakness: Plan: Improved with OT and PT. Continue to treat UTI. (2) Dementia: Plan: Stable. Continue HS Donepezil (3) Hypomagnesemia: Plan: Oral magnesium replacement. Serial labs (4) Diabetes: Plan: ADA diet. Metformin has been restarted. Low-dose Lantus which was started on admission has been discontinued. Sliding scale coverage as needed (5) GERD (gastroesophageal reflux disease): Plan: Stable. Continue pantoprazole (6) CHF (congestive heart failure): Plan: Chronic diastolic. Stable. Continue current medical management (7) Hypothyroidism: Plan: Stable. TSH WNL . Continue levothyroxine (8) HTN (hypertension): Plan: Stable . Continue carvedilol (9) HLD (hyperlipidemia): Plan: Stable. Continue crestor (10) UTI (urinary tract infection), uncomplicated: Plan: Klebsiella isolated. She is on intravenous Cipro which will be switched to oral dosing at discharge Plan Anticipate discharge to [facility] tomorrow, March 20 Admission and Anticipated Discharge Date Admission Date: March 17, 2023 Subjective Klebsiella isolated in the urine. She is now on intravenous ciprofloxacin which will be switched to oral dosing at discharge. Probable discharge to [facility] tomorrowMarch 20. Magnesium is slightly low. Oral magnesium replacement ordered. Potassium has improved to 3.5. Her usual metformin has been restarted and the low-dose Lantus discontinued. Review of Systems Review of Systems: Constitutional-no fever or chills ENT-no blurred vision, no double vision, no epistaxis, no sore throat Respiratory-no cough, no wheezing, no shortness of breath Cardiac-no palpitations, no chest pain, no syncope GI-no nausea, vomiting, diarrhea, melena, hematochezia -no urinary retention, no urinary incontinence, no dysuria, no hematuria Musculoskeletal-no joint pain, no muscle tenderness Skin-no bruising, no rashes, no pruritus Neuro-no isolated weakness, no paresthesia, no weakness Psych-no depression, no anxiety Physical Exam Physical Exam: General-alert and oriented x3, no fevers, no chills HEENT-head atraumatic and normocephalic, pupils equal and reactive to light, extraocular muscles intact Neck-no lymphadenopathy or thyromegaly, trachea midline Chest-clear to auscultation percussion. No rales wheezing or rhonchi Cardiac-regular rate and rhythm, normal S1 and S2 Abdomen-normal bowel sounds, nontender, no hepatosplenomegaly Extremities-no cyanosis, clubbing, or edema Neuro-cranial nerves II through XII intact, motor and sensory function within normal limits, strength symmetrical , no focal deficits Psych-normal affect, normal mood Results & Data Results & Data Vital Signs (Past 12 Hours) Vital Signs Temp Pulse Pulse Resp BP Pulse Ox O2 Del Method 03/19/23 11:10 36.7 C 65 16 124/73 96 Room Air 03/19/23 09:11 Room Air 03/19/23 06:57 75 03/19/23 06:40 36.6 C 69 18 123/74 93 Room Air PG Care Time/CCT Total # of Minutes Spent Total Time Spent with Patient: Total time spent is greater than 50% in coordination of care (as documented) at patient's floor/unit and/or counseling patient: Coding Level of Care Code 45695 SUB INP/OBS CARE 3/50MIN Diagnoses Generalized weakness R53.1 Dementia F03.90 Hypomagnesemia E83.42 Diabetes E11.9 GERD (gastroesophageal reflux disease) K21.9 CHF (congestive heart failure) I50.9 Hypothyroidism E03.9 HTN (hypertension) I10 HLD (hyperlipidemia) E78.5 UTI (urinary tract infection), uncomplicated N39.0
[2023-03-19] MEDS ORDERED: metFORMIN HCL 500 MG TAB PO SCH (15:30)
[2023-03-19] MEDS: PARoxetine HCL 20 MG TAB PO SCH (20:28)
[2023-03-19] MEDS: DONEPEZIL HCL 5 MG TAB PO SCH (20:28)
[2023-03-20] MEDS: CIPROFLOXACIN / D5W 400 MG/200 ML BAG IV SCH (03:02)
[2023-03-20 03:07] VITALS: TEMP 97.7
[2023-03-20] MEDS: LEVOTHYROXINE SODIUM 25 MCG TABLET PO SCH (05:50)
[2023-03-20 08:05] VITALS: O2SAT 96
[2023-03-20] MEDS: INSULIN ASPART PER UNIT CHARGE SC SCH ×2 (08:29→12:09)
[2023-03-20 08:30] LABS: Basophils # (auto) 0.07 K/uL (0-0.2); Basophils % (auto) 1.4 %; Eosinophils # (auto) 0.32 K/uL (0-0.50); Eosinophils % (auto) 6.5 %; Hematocrit (blood only) 33.2 % (37.0-47.0); Immature Granulocytes # (auto) 0.01 K/uL (0.01-0.20); Immature Granulocytes % (auto) 0.2 %; Lymphocytes # (auto) 2.15 K/uL (1.2-3.4); Lymphocytes % (auto) 43.6 %; Mean Corpuscular Hemoglobin 30.8 pg (25.0-34.0); Mean Corpuscular Hgb Conc 33.1 g/dL (32.0-36.0); Mean Platelet Volume 10.4 fL (9.4-12.4); Monocytes # (auto) 0.74 K/uL (0.11-0.59); Neutrophils # (auto) 1.64 K/uL (1.40-6.50); Neutrophils % (auto) 33.3 %; Platelet Count 199 K/uL (130-400); RDW Coefficient of Variation 13.7 % (11.5-14.5); RDW Standard Deviation 46.9 fL (36.4-46.3); Red Blood Count 3.57 M/uL (4.20-5.40); White Blood Count 4.93 K/ul (4.8-10.8)
[2023-03-20] MEDS: ROSUVASTATIN CALCIUM 20 MG TAB PO SCH (08:31)
[2023-03-20] MEDS: PANTOprazole 40 MG TAB PO SCH (08:31)
[2023-03-20] MEDS: MAGNESIUM OXIDE 400 MG TAB PO SCH (08:32)
[2023-03-20] MEDS: POTASSIUM CHLORIDE CRTAB 20 MEQ TABCR PO SCH (08:32)
[2023-03-20] MEDS: carvediloL 3.125 MG TAB PO SCH (08:32)
[2023-03-20 08:39] LABS: Calcium 9.2 mg/dl (8.6-10.3); Creatinine Clr Calc Pharmacy 56.1 ml/min; Est GFR (African American) 62.1 ml/min; Est GFR (Non-African American) 53.5 ml/min; Magnesium 1.5 mg/dl (1.7-2.4)
[2023-03-20] MEDS ORDERED: CIPROFLOXACIN 250 MG TAB PO SCH (09:45)
[2023-03-20 11:27] VITALS: BP 119/68; PULSE 72
--- NOTE | 2023-03-20 11:48 | Discharge Summary ---
Date of Service March 20, 2023 Admission HPI Per Admitting Provider Deanna is a 77 y/o F W/PMH significant for HFpEF, dementia associated with gait apraxia, MDD, DM II, GERD, HLD, HTN, ischemic CVA, bladder spasms, Infarcted left kidney who presented to the [facility] ED on 03/17/23 with her Daughter due to worsening fatigue/generalized weakness. In the ED vital were stable. Labs were significant for glucose of 120, magnesium of 1.4, TSH WNL, and UA without signs of infection. CT head/brain wo con was read as "1. No acute intracranial abnormality. 2. Chronic findings as above.". Chest xray was read as "No acute process.". Prior to admission the patient was given 1gm IV mag-sulfate. At the time of the exam the patient was sitting in bed in no acute distress, eating jeanette crackers, with her daughter standing bedside. The majority of the history was obtained from the patient's daughter due to her weakness. The patient's daughter states that the patient has been more fatigued and generally weak over the past week. She has home health come approximately 2 times weekly as she lives alone but family checks on her daily and her daughter has cameras in the home to watch her. The home health nurses were concerned she may have a UTI last week but the patient was too weak to stand for a urine sample. They called her Urologist again this am who recommended she be evaluated in the ED due to her ongoing weakness. The patient's daughter states that the weakness has been stable over the past week. The patient uses a cane and walker for ambulation. She has had no recent medication changes and her daughter states that the patient seems to be eating well. She has presented like this previously when she was admitted for UTI's, her daughter is surprised to hear her UA was negative today. The patient currently sleeps in a recliner as she gets SOB when lying flat. Her daughter denies the patient being evaluated for sleep apnea previously. The patient denies recent fever, chills, chest pain, SOB, abd pain, nausea vomiting, diarrhea, dysuria, hematuria, melena, worsening LE swelling, and recent trauma. Her chronic low back pain has been bothering her, her daughter states that the patient previously had rods placed and has chronic low back pain. Her daughter would be interested in trying to her additional home health if possible. The patient is a full code and her daughter is her POA. Please refer to Dr. Baer's attestation for any changes to the treatment plan Principal Diagnosis Weakness, Klebsiella UTI uncomplicated, hypomagnesemia, hypokalemia Discharge Exam General-alert and oriented x3, no fevers, no chills HEENT-head atraumatic and normocephalic, pupils equal and reactive to light, extraocular muscles intact Neck-no lymphadenopathy or thyromegaly, trachea midline Chest-clear to auscultation percussion. No rales wheezing or rhonchi Cardiac-regular rate and rhythm, normal S1 and S2 Abdomen-normal bowel sounds, nontender, no hepatosplenomegaly Extremities-no cyanosis, clubbing, or edema Neuro-cranial nerves II through XII intact, motor and sensory function within normal limits, strength symmetrical , no focal deficits Psych-normal affect, normal mood Discharge Data Allergies Allergy/AdvReac Type Severity Reaction Status Date / Time aspirin Allergy Severe Hives Verified 03/17/23 16:18 NSAIDS (Non-Steroidal Allergy Intermediate Hives Verified 03/17/23 16:18 Anti-Inflamma Penicillins Allergy Intermediate Hives Verified 03/17/23 16:18 fenofibrate Allergy Unknown ON PT MED Verified 03/17/23 16:18 LIST propoxyphene Allergy Unknown ON PT MED Verified 03/17/23 16:18 LIST Consultations 03/17/23 16:54 ED Decision to Admit Stat Ordered Studies 03/17/23 16:11 CT head/brain wo con Stat Hospital Course (1) Generalized weakness: Improved with OT and PT. Continue to treat UTI. (2) Dementia: Stable. Continue HS Donepezil (3) Hypomagnesemia: Oral magnesium replacement. Serial labs (4) Diabetes: ADA diet. Metformin has been restarted. Low-dose Lantus which was started on admission has been discontinued. Sliding scale coverage as needed (5) GERD (gastroesophageal reflux disease): Stable. Continue pantoprazole (6) CHF (congestive heart failure): Chronic diastolic. Stable. Continue current medical management (7) Hypothyroidism: Stable. TSH WNL . Continue levothyroxine (8) HTN (hypertension): Stable . Continue carvedilol (9) HLD (hyperlipidemia): Stable. Continue crestor (10) UTI (urinary tract infection), uncomplicated: Klebsiella isolated. She was treated for several days with intravenous Cipro which has been switched today to oral dosing Plan Anticipate discharge to [facility] today, March 20 Total Time Total Time Spent Total Time Spent (In Minutes): 40 minutes Discharge Plan Discharge Items Patient Disposition: Transfer Nursing Home Fac Reason For Visit: lethargic; change in [place] Discharge Diagnosis: Uncomplicated Klebsiella UTI, weakness, hypomagnesemia, hypokalemia Activity: Resume your previous activity Non-emergency contact: Primary Care Provider Call non-emergency contact if: you have any medication questions Follow-up/Referrals: Bonifacio Ibanez DO [Primary Care Provider] - Diet: Carb Consistent or DM2 and Heart Healthy Addtl Attending Provider Instructions: Take ciprofloxacin for 3 more days then stop Pending Studies at Discharge: No Stand-Alone Forms: [facility] Skilled Items Patient informed of condition?: Yes DNR: Yes Discharge Level of Care: Skilled Communicable Disease: No Discharge Prognosis: Stable Lines: None Urinary Catheter: No Medications and DC Order Prescriptions: New magnesium oxide 400 mg (241.3 mg magnesium) Tablet 400 mg PO BID Qty: 0 0RF ciprofloxacin HCl 250 mg Tablet 250 mg PO Q12H Qty: 0 0RF Continued donepezil 5 mg tablet 5 mg PO HS Qty: 30 5RF carvedilol 3.125 mg tablet 3.125 mg PO BID Rx Instructions: must administer with a meal/food paroxetine HCl 20 mg tablet 20 mg PO HS rosuvastatin 20 mg tablet 20 mg PO DAILY metformin 1,000 mg tablet 1,000 mg PO QAM omeprazole 20 mg capsule,delayed release(DR/EC) 40 mg PO DAILY ergocalciferol (vitamin D2) [Vitamin D2] 1,250 mcg (50,000 unit) capsule 1,250 mcg PO WK potassium chloride 20 mEq tablet,ER particles/crystals 20 meq PO QAM Qty: 30 0RF furosemide 20 mg tablet 20 mg PO QAM Qty: 30 2RF Rx Instructions: for fluid/edema of legs; note lower dose. acetaminophen [Tylenol Extra Strength] 500 mg Tablet 500 mg PO Q8H PRN (Reason: Pain) cholecalciferol (vitamin D3) [Vitamin D3] 25 mcg (1,000 unit) Capsule 25 mcg PO DAILY Adult Multivitamin Gummies 200 mcg Tablet,Chewable 1 tab PO QAM levothyroxine [Synthroid] 25 mcg tablet 25 mcg PO QAM Rx Instructions: for underactive thyroid gland Discharge Orders: Discharge Order (Routine); Ordered 03/20/23 Ordered By: Yanick Monahan Admission Data Admit Date/Time: 03/17/23 17:08 Attending Provider: Yanick Monahan Admit Provider: Bobby Baer Primary Care Provider: Bonifacio Ibanez Other Providers: John Culp ; Bobby Baer Other Interventions: Discharge Summary Assessment (RN) Last Done: 03/20/23 11:26 Coding Level of Care Code 87030 INP/OBS DISCH >30 MIN Diagnoses Generalized weakness R53.1 Dementia F03.90 Hypomagnesemia E83.42 Diabetes E11.9 GERD (gastroesophageal reflux disease) K21.9 CHF (congestive heart failure) I50.9 Hypothyroidism E03.9 HTN (hypertension) I10 HLD (hyperlipidemia) E78.5 UTI (urinary tract infection), uncomplicated N39.0
[2023-03-21 15:37] LABS: Babesia microti DNA Not Detected (Not Detected)
== END 2023-03-20 13:37 | DRG 690 ==
LOC: ED 13:06 → SUATTDRO 17:08 → 2N 17:08

== ENCOUNTER 2023-04-18 17:26 | Inpatient (IN) ==
--- NOTE | 2023-04-18 18:05 | Emergency Department Note ---
History of Present Illness General Chief complaint: Confusion Stated complaint: AMS Time Seen by Provider: 04/18/23 17:48 History of Present Illness 77-year-old female presents via EMS reportedly with increased confusion. Patient was just discharged 2 days ago for urinary tract infection and confusion and was at [facility]. Reportedly her shinto friends were at her house this morning and she was more confused. Grandson who is at bedside states that she had increased confusion at home was not responsive at times and in the past this has been related to a urinary tract infection. The poor historian to her presentation does not provide me any history as to why she is presenting today. Home Medications Medication Instructions Recorded Confirmed Type carvedilol 3.125 mg tablet 3.125 mg PO BID 01/29/22 03/17/23 History paroxetine HCl 20 mg tablet 20 mg PO HS 01/29/22 03/17/23 History rosuvastatin 20 mg tablet 20 mg PO DAILY 01/29/22 03/17/23 History donepezil 5 mg tablet 5 mg PO HS #30 tabs 01/06/23 03/17/23 Rx ergocalciferol (vitamin D2) 1,250 1,250 mcg PO WK 01/14/23 03/17/23 History mcg (50,000 unit) capsule (Vitamin D2) metformin 1,000 mg tablet 1,000 mg PO QAM 01/14/23 03/17/23 History omeprazole 20 mg capsule,delayed 40 mg PO DAILY 01/14/23 03/17/23 History release furosemide 20 mg tablet 20 mg PO QAM #30 tabs 01/29/23 03/17/23 Rx potassium chloride 20 mEq 20 meq PO QAM #30 tabs 01/29/23 03/17/23 Rx tablet,extended release(part/cryst) cholecalciferol (vitamin D3) 25 25 mcg PO DAILY 03/17/23 03/17/23 History mcg (1,000 unit) capsule (Vitamin D3) levothyroxine 25 mcg tablet 25 mcg PO QAM 03/17/23 03/17/23 History (Synthroid) multivitamin with minerals-folic 1 tab PO QAM 03/17/23 03/17/23 History acid 200 mcg chewable tablet (Adult Multivitamin Gummies) ciprofloxacin HCl 250 mg tablet 250 mg PO Q12H #0 tabs 03/20/23 Rx magnesium oxide 400 mg (241.3 mg 400 mg PO BID #0 tabs 03/20/23 Rx magnesium) tablet acetaminophen 500 mg tablet 650 mg PO Q4H PRN Pain 04/16/23 04/16/23 History (Tylenol Extra Strength) Allergies Allergy/AdvReac Type Severity Reaction Status Date / Time aspirin Allergy Severe Hives Verified 03/17/23 16:18 NSAIDS (Non-Steroidal Allergy Intermediate Hives Verified 03/17/23 16:18 Anti-Inflamma Penicillins Allergy Intermediate Hives Verified 03/17/23 16:18 fenofibrate Allergy Unknown ON PT MED Verified 03/17/23 16:18 LIST propoxyphene Allergy Unknown ON PT MED Verified 03/17/23 16:18 LIST Past Med/Surg History Medical History Bladder spasms CHF (congestive heart failure) Dementia Depression Diabetes GERD (gastroesophageal reflux disease) HLD (hyperlipidemia) HTN (hypertension) Hypothyroidism 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 No pertinent family history Strain of rotator cuff of right shoulder Surgical History History of back surgery No pertinent past surgical history S/P appendectomy S/P colonoscopy S/P hysterectomy Status post right knee replacement Social History Smoking Status: Unknown if ever smoked Second Hand Exposure: No; Do You Dip or Chew Tobacco: No; Hx Alcohol Use: No Hx Substance Use: No Preferred Language: Cypriot Communication Ability: Effective Visual Impairment: No Limitations Hearing Ability: Normal [employer] Systems Integration Specialist Required: No Beliefs That Will Affect Care: None marital status: / Current Living Situation: Alone Current Living Situation Comment: [place] current occupational status: retired Feels Safe at Home: Yes Childhood Exposure to Second-Hand Smoke: No Diet: diabetic Dental Care, Regularly: No Physical Activity Frequency: Does not Exercise Seatbelt Use: always Sunscreen Use: No Assistive Devices: Cane, Glasses and Walker Review of Systems Unobtainable due to cognitive status Physical Exam Vital Signs Vital Signs - 24 hr 04/18/23 17:35 04/18/23 17:12 04/18/23 17:33 Temperature 36.9 C Temperature Source Rectal Pulse Rate 71 70 69 Pulse Rate from SpO2 Sensor 69 Respiratory Rate 20 15 Respiratory Effort / Characteristics Non-Labored Blood Pressure 131/84 Blood Pressure Mean 99 Pulse Oximetry 98 97 Oxygen Delivery Method Room Air Sepsis Recent Fever Within 48 Hours No Sepsis New/Unexplained Change in Mental Status Yes Sepsis Action Taken by Nursing No Action Required 04/18/23 17:45 04/18/23 18:00 04/18/23 18:01 Temperature Temperature Source Pulse Rate 68 67 Pulse Rate from SpO2 Sensor Respiratory Rate 22 19 Respiratory Effort / Characteristics Blood Pressure 137/69 Blood Pressure Mean 92 Pulse Oximetry Oxygen Delivery Method Sepsis Recent Fever Within 48 Hours Sepsis New/Unexplained Change in Mental Status Sepsis Action Taken by Nursing 04/18/23 18:01 04/18/23 18:15 04/18/23 18:30 Temperature Temperature Source Pulse Rate 68 73 Pulse Rate from SpO2 Sensor 67 57 L Respiratory Rate 20 18 Respiratory Effort / Characteristics Blood Pressure 141/73 H Blood Pressure Mean 83 Pulse Oximetry 94 94 Oxygen Delivery Method Sepsis Recent Fever Within 48 Hours Sepsis New/Unexplained Change in Mental Status Sepsis Action Taken by Nursing 04/18/23 18:30 04/18/23 18:45 04/18/23 19:00 Temperature Temperature Source Pulse Rate 76 63 Pulse Rate from SpO2 Sensor 71 62 Respiratory Rate 20 16 Respiratory Effort / Characteristics Blood Pressure 138/61 Blood Pressure Mean 96 Pulse Oximetry 95 96 Oxygen Delivery Method Sepsis Recent Fever Within 48 Hours Sepsis New/Unexplained Change in Mental Status Sepsis Action Taken by Nursing 04/18/23 19:00 04/18/23 19:15 04/18/23 19:30 Temperature Temperature Source Pulse Rate 65 72 Pulse Rate from SpO2 Sensor 65 72 Respiratory Rate 15 17 Respiratory Effort / Characteristics Blood Pressure 131/58 L Blood Pressure Mean 92 Pulse Oximetry 95 96 Oxygen Delivery Method Sepsis Recent Fever Within 48 Hours Sepsis New/Unexplained Change in Mental Status Sepsis Action Taken by Nursing 04/18/23 19:30 04/18/23 20:25 04/18/23 20:27 Temperature Temperature Source Pulse Rate 67 63 67 Pulse Rate from SpO2 Sensor 64 66 64 Respiratory Rate 16 13 18 Respiratory Effort / Characteristics Blood Pressure Blood Pressure Mean Pulse Oximetry 93 97 95 Oxygen Delivery Method Sepsis Recent Fever Within 48 Hours Sepsis New/Unexplained Change in Mental Status Sepsis Action Taken by Nursing 04/18/23 20:27 Temperature Temperature Source Pulse Rate Pulse Rate from SpO2 Sensor Respiratory Rate Respiratory Effort / Characteristics Blood Pressure 135/69 Blood Pressure Mean 100 Pulse Oximetry Oxygen Delivery Method Sepsis Recent Fever Within 48 Hours Sepsis New/Unexplained Change in Mental Status Sepsis Action Taken by Nursing GENERAL: Patient is awake alert in no acute distress EYES: The conjunctivae are clear. The pupils are round and reactive. EARS, NOSE, MOUTH AND THROAT: The nose is without any evidence of any deformity. Mucous membranes are moist. Tongue is midline. NECK: The neck is nontender and supple. RESPIRATORY: Normal respiratory effort is noted there is no evidence of wheezing rhonchi or rales CARDIOVASCULAR: Regular rate and rhythm noted there no murmurs rubs or gallops normal S1 normal S2. GASTROINTESTINAL: The abdomen is soft. Abdomen is nontender. BACK: No midline tenderness or or step-off noted range of motion in flexion extension as well as rotation no signs of muscle spasm noted MUSCULOSKELETAL/EXTREMITIES: There is no evidence of gross deformity full range of motion is noted in the hips and shoulders. SKIN: There is no obvious evidence of any rash. There are no petechiae, pallor or cyanosis noted. NEUROLOGIC: Patient is awake but alert to person only Course Reevaluation(s) Reevaluation #1: Patient is resting in no distress. Patient was given IV fluids due to an elevated lactate level Time: 20:50 Consultations Consultation #1: [facility] Time: 20:50 Administered Medications Discontinued Medications Sodium Chloride (Nss 1000ml) 1,000 mls @ 999 mls/hr IV .Q1H1M ONE Stop: 04/18/23 19:24 Last Admin: 04/18/23 18:56 Dose: 999 mls/hr Documented By: BE Sodium Chloride (Nss 1000ml) 1,000 mls @ 999 mls/hr IV .Q1H1M ONE Stop: 04/18/23 20:59 Last Admin: 04/18/23 20:30 Dose: 999 mls/hr Documented By: BE Medical Decision Making Medical Records Attestation: I reviewed the patient's medical records. Home Medications Current Medication List: was personally reviewed by me Laboratory Data Attestation: I reviewed the patient's lab results. Lab work interpreted by me is unremarkable 04/18/23 18:00 04/18/23 18:00 Lab Results 04/18/23 04/18/23 04/18/23 Range/Units 18:00 18:00 18:00 WBC 6.79 (4.8-10.8) K/ul RBC 4.03 L (4.20-5.40) M/uL Hgb 12.2 (12.0-16.0) g/dl Hct 36.7 L (37.0-47.0) % MCV 91.1 (80.0-100.0) fL MCH 30.3 (25.0-34.0) pg MCHC 33.2 (32.0-36.0) g/dL RDW Std Deviation 46.1 (36.4-46.3) fL RDW Coeff of Sam 13.7 (11.5-14.5) % Plt Count 265 (130-400) K/uL MPV 10.0 (9.4-12.4) fL Immature Gran % (Auto) 0.1 % Neut % (Auto) 34.4 % Lymph % (Auto) 45.9 % [place] % (Auto) 15.2 % Eos % (Auto) 3.4 % Baso % (Auto) 1.0 % Neut # (Auto) 2.33 (1.40-6.50) K/uL Lymph # (Auto) 3.12 (1.2-3.4) K/uL Fa[place]ner # (Auto) 1.03 H (0.11-0.59) K/uL Eos # (Auto) 0.23 (0-0.50) K/uL Baso # (Auto) 0.07 (0-0.2) K/uL Immature Gran # (Auto) 0.01 (0.01-0.20) K/uL Sodium 140 (136-145) mmol/L Potassium 3.9 (3.5-5.1) mmol/L Chloride 105 (98-107) mmol/L Carbon Dioxide 24 (21-32) mmol/L Anion Gap 11 (3-11) BUN 21 (6-23) mg/dl Creatinine 1.42 H (0.6-1.2) mg/dl Est Cr Clr Drug Dosing 18.7 ml/min Est GFR ( Amer) 40.6 ml/min Est GFR (Non-Af Amer) 35.0 ml/min BUN/Creatinine Ratio 14.8 (10-20) Glucose 117 H (70-99(Fasting)) mg/dl Lactate 2.1 H* (0.4-2.0) mmol/L Calcium 10.1 (8.6-10.3) mg/dl Magnesium 1.8 (1.7-2.4) mg/dl Total Bilirubin 0.8 (0.2-1.0) mg/dl Direct Bilirubin TNP AST 20 (13-39) U/L ALT 10 (7-52) U/L Alkaline Phosphatase 50 (34-104) U/L Troponin I High Sens 6.2 (0-14) pg/ml Total Protein 6.8 (6.0-8.3) gm/dl Albumin 4.1 (3.4-5.0) gm/dl Procalcitonin (0-0.5) ng/ml Urine Color Urine Appearance (Clear) Urine pH (4.5-7.5) Ur Specific [place] (1.000-1.030) Urine Protein (Negative) Urine Glucose (UA) (Negative) Urine Ketones (Negative) Urine Blood (Negative) Urine Nitrite (Negative) Urine Bilirubin (Negative) Urine Urobilinogen (Negative) Ur Leukocyte Esterase (Negative) SARS-CoV-2, RNA, NAAT (NEGATIVE) 04/18/23 04/18/23 04/18/23 Range/Units 18:00 18:10 18:45 WBC (4.8-10.8) K/ul RBC (4.20-5.40) M/uL Hgb (12.0-16.0) g/dl Hct (37.0-47.0) % MCV (80.0-100.0) fL MCH (25.0-34.0) pg MCHC (32.0-36.0) g/dL RDW Std Deviation (36.4-46.3) fL RDW Coeff of Sam (11.5-14.5) % Plt Count (130-400) K/uL MPV (9.4-12.4) fL Immature Gran % (Auto) % Neut % (Auto) % Lymph % (Auto) % Fa[place]ner % (Auto) % Eos % (Auto) % Baso % (Auto) % Neut # (Auto) (1.40-6.50) K/uL Lymph # (Auto) (1.2-3.4) K/uL [place] # (Auto) (0.11-0.59) K/uL Eos # (Auto) (0-0.50) K/uL Baso # (Auto) (0-0.2) K/uL Immature Gran # (Auto) (0.01-0.20) K/uL Sodium (136-145) mmol/L Potassium (3.5-5.1) mmol/L Chloride (98-107) mmol/L Carbon Dioxide (21-32) mmol/L Anion Gap (3-11) BUN (6-23) mg/dl Creatinine (0.6-1.2) mg/dl Est Cr Clr Drug Dosing ml/min Est GFR ( Amer) ml/min Est GFR (Non-Af Amer) ml/min BUN/Creatinine Ratio (10-20) Glucose (70-99(Fasting)) mg/dl Lactate (0.4-2.0) mmol/L Calcium (8.6-10.3) mg/dl Magnesium (1.7-2.4) mg/dl Total Bilirubin (0.2-1.0) mg/dl Direct Bilirubin AST (13-39) U/L ALT (7-52) U/L Alkaline Phosphatase (34-104) U/L Troponin I High Sens (0-14) pg/ml Total Protein (6.0-8.3) gm/dl Albumin (3.4-5.0) gm/dl Procalcitonin < 0.05 (0-0.5) ng/ml Urine Color Yellow Urine Appearance Clear (Clear) Urine pH 5.0 (4.5-7.5) Ur Specific [place] 1.011 (1.000-1.030) Urine Protein Negative (Negative) Urine Glucose (UA) Negative (Negative) Urine Ketones Negative (Negative) Urine Blood Negative (Negative) Urine Nitrite Negative (Negative) Urine Bilirubin Negative (Negative) Urine Urobilinogen Negative (Negative) Ur Leukocyte Esterase Negative (Negative) SARS-CoV-2, RNA, NAAT NEGATIVE (NEGATIVE) 04/18/23 04/18/23 Range/Units 19:23 19:43 WBC (4.8-10.8) K/ul RBC (4.20-5.40) M/uL Hgb (12.0-16.0) g/dl Hct (37.0-47.0) % MCV (80.0-100.0) fL MCH (25.0-34.0) pg MCHC (32.0-36.0) g/dL RDW Std Deviation (36.4-46.3) fL RDW Coeff of Sam (11.5-14.5) % Plt Count (130-400) K/uL MPV (9.4-12.4) fL Immature Gran % (Auto) % Neut % (Auto) % Lymph % (Auto) % [place] % (Auto) % Eos % (Auto) % Baso % (Auto) % Neut # (Auto) (1.40-6.50) K/uL Lymph # (Auto) (1.2-3.4) K/uL [place] # (Auto) (0.11-0.59) K/uL Eos # (Auto) (0-0.50) K/uL Baso # (Auto) (0-0.2) K/uL Immature Gran # (Auto) (0.01-0.20) K/uL Sodium (136-145) mmol/L Potassium (3.5-5.1) mmol/L Chloride (98-107) mmol/L Carbon Dioxide (21-32) mmol/L Anion Gap (3-11) BUN (6-23) mg/dl Creatinine (0.6-1.2) mg/dl Est Cr Clr Drug Dosing ml/min Est GFR ( Amer) ml/min Est GFR (Non-Af Amer) ml/min BUN/Creatinine Ratio (10-20) Glucose (70-99(Fasting)) mg/dl Lactate 2.7 H* (0.4-2.0) mmol/L Calcium (8.6-10.3) mg/dl Magnesium (1.7-2.4) mg/dl Total Bilirubin (0.2-1.0) mg/dl Direct Bilirubin 0.1 AST (13-39) U/L ALT (7-52) U/L Alkaline Phosphatase (34-104) U/L Troponin I High Sens (0-14) pg/ml Total Protein (6.0-8.3) gm/dl Albumin (3.4-5.0) gm/dl Procalcitonin (0-0.5) ng/ml Urine Color Urine Appearance (Clear) Urine pH (4.5-7.5) Ur Specific [place] (1.000-1.030) Urine Protein (Negative) Urine Glucose (UA) (Negative) Urine Ketones (Negative) Urine Blood (Negative) Urine Nitrite (Negative) Urine Bilirubin (Negative) Urine Urobilinogen (Negative) Ur Leukocyte Esterase (Negative) SARS-CoV-2, RNA, NAAT (NEGATIVE) Imaging Data Attestation: I personally reviewed and interpreted this imaging study as foll ows: My Impression: Chest x-ray interpreted by me negative for infiltrate CT brain interpreted by me negative for intracranial hemorrhage Radiologist's Impression: Chest X-Ray 04/18/23 17:48 XR chest 1V portable CLINICAL HISTORY: Sepsis TECHNIQUE: Single frontal radiograph of the chest was obtained. Comparison: Comparison is made to chest radiograph 03/17/2023 FINDINGS: No lines and tubes are seen. Calcified aortic knob is seen. The lungs are clear. No evidence of pleural effusion or pneumothorax. IMPRESSION: No acute chest disease. ACT 112: Negative or not required by law. Electronically signed by: Elías Srinivasan M.D. 04/18/2023 6:[address] 04/18/23 17:49 Exam(s): CT HEAD Without Contrast EXAM: CT Head Without Intravenous Contrast CLINICAL HISTORY: Reason for exam: ams. TECHNIQUE: Axial computed tomography images of the head/brain without intravenous contrast. CTDI is 36.74 mGy and DLP is 703.85 mGy-cm. Automated exposure control was utilized for the study. A dose lowering technique was utilized adhering to the principles of ALARA. COMPARISON: CT head on 03/17/2023 FINDINGS: Brain: No acute infarct or hemorrhage identified. No extra-axial fluid collection. No mass effect or midline shift. Scattered areas of hypoattenuation in the supratentorial white matter likely represent chronic small vessel ischemic changes. Stable encephalomalacia and bilateral parietal lobes and left cerebellar hemisphere. Ventricles and sulci: Prominence of the ventricles and sulci is likely secondary to cerebral volume loss. Bones: Moderate hyperostosis frontalis interna. No bony lesion or acute fracture. Subcutaneous tissues: Normal. Sinuses: Normal. No air-fluid levels or mucosal thickening. Mastoid air cells: Normal. Orbits: Grossly unremarkable. Other: Atherosclerotic calcifications in the intracranial vasculature. IMPRESSION: 1. No acute intracranial abnormality. 2. Chronic small vessel ischemic changes and cerebral volume loss. Stable encephalomalacia and bilateral parietal lobes and left cerebellar hemisphere. Electronically signed by: Tiesha Brown M.D. 04/18/23 20:35 PM ECG Data Attestation: I personally reviewed and interpreted this ECG as follows: Additional Comments: EKG interpreted by me normal sinus rhythm rate of 70 first-degree AV block left bundle branch block no obvious ST segment elevation or depression normal axis Telemetry was ordered by me, interpreted as normal sinus rhythm rate of 70 MDM Narrative Medical decision making differential diagnosis includes urinary tract infection, intracranial process, metabolic derangement, dehydration, sepsis Plan is to check sepsis labs, CT External medical records were reviewed from the patient's prior discharge summary 04/15/2023 Independent history was provided to me by the patient's grandson who is at bedside Patient will be admitted for alteration in mental status, the etiology at this time is unknown. Impression & Plan AMS (altered mental status) Discharge Plan Visit Data Chief Complaint: Confusion Stated Complaint: AMS ED Provider: Milad Coleman Discharge Problem: AMS (altered mental status) Patient Disposition: Admitted As Inpatient Forms Stand Alone Forms: My [facility] Prescriptions Prescriptions: No Action donepezil 5 mg tablet 5 mg PO HS Qty: 30 5RF carvedilol 3.125 mg tablet 3.125 mg PO BID Rx Instructions: must administer with a meal/food paroxetine HCl 20 mg tablet 20 mg PO HS rosuvastatin 20 mg tablet 20 mg PO DAILY acetaminophen [Tylenol Extra Strength] 500 mg tablet 650 mg PO Q4H PRN (Reason: Pain) metformin 1,000 mg tablet 1,000 mg PO QAM omeprazole 20 mg capsule,delayed release(DR/EC) 40 mg PO DAILY ergocalciferol (vitamin D2) [Vitamin D2] 1,250 mcg (50,000 unit) capsule 1,250 mcg PO WK potassium chloride 20 mEq tablet,ER particles/crystals 20 meq PO QAM Qty: 30 0RF furosemide 20 mg tablet 20 mg PO QAM Qty: 30 2RF Rx Instructions: for fluid/edema of legs; note lower dose. cholecalciferol (vitamin D3) [Vitamin D3] 25 mcg (1,000 unit) Capsule 25 mcg PO DAILY Adult Multivitamin Gummies 200 mcg Tablet,Chewable 1 tab PO QAM levothyroxine [Synthroid] 25 mcg tablet 25 mcg PO QAM Rx Instructions: for underactive thyroid gland ciprofloxacin HCl 250 mg Tablet 250 mg PO Q12H Qty: 0 0RF magnesium oxide 400 mg (241.3 mg magnesium) Tablet 400 mg PO BID Qty: 0 0RF Referrals Referrals: Bonifacio Ibanez, [Primary Care Provider] -
[2023-04-18] MEDS ORDERED: SODIUM CHLORIDE 0.9% 1000ML 1,000 ML IV ONE ×2 (18:24→19:59)
[2023-04-18 18:36] LABS: Basophils # (auto) 0.07 K/uL (0-0.2); Eosinophils # (auto) 0.23 K/uL (0-0.50); Eosinophils % (auto) 3.4 %; Hematocrit (blood only) 36.7 % (37.0-47.0); Hemoglobin 12.2 g/dl (12.0-16.0); Immature Granulocytes # (auto) 0.01 K/uL (0.01-0.20); Immature Granulocytes % (auto) 0.1 %; Lymphocytes # (auto) 3.12 K/uL (1.2-3.4); Lymphocytes % (auto) 45.9 %; Mean Corpuscular Hemoglobin 30.3 pg (25.0-34.0); Mean Corpuscular Hgb Conc 33.2 g/dL (32.0-36.0); Mean Corpuscular Volume 91.1 fL (80.0-100.0); Monocytes # (auto) 1.03 K/uL (0.11-0.59); Monocytes % (auto) 15.2 %; Neutrophils # (auto) 2.33 K/uL (1.40-6.50); Neutrophils % (auto) 34.4 %; Platelet Count 265 K/uL (130-400); RDW Coefficient of Variation 13.7 % (11.5-14.5); RDW Standard Deviation 46.1 fL (36.4-46.3); Red Blood Count 4.03 M/uL (4.20-5.40); White Blood Count 6.79 K/ul (4.8-10.8)
[2023-04-18 18:44] LABS: Alanine Aminotransferase 10 U/L (7-52); Albumin Level 4.1 gm/dl (3.4-5.0); Alkaline Phosphatase 50 U/L (34-104); Anion Gap 11 (3-11); Aspartate Aminotransferase 20 U/L (13-39); BUN Creatinine Ratio 14.8 (10-20); Bilirubin,Total 0.8 mg/dl (0.2-1.0); Blood Urea Nitrogen 21 mg/dl (6-23); Calcium 10.1 mg/dl (8.6-10.3); Carbon Dioxide 24 mmol/L (21-32); Chloride 105 mmol/L (98-107); Creatinine Clr Calc Pharmacy 18.7 ml/min; Est GFR (African American) 40.6 ml/min; Glucose 117 mg/dl (70-99(Fasting)); Magnesium 1.8 mg/dl (1.7-2.4); Potassium 3.9 mmol/L (3.5-5.1); Sodium 140 mmol/L (136-145); Total Protein 6.8 gm/dl (6.0-8.3)
--- NOTE | 2023-04-18 18:44 | XRay Report ---
XR chest 1V portable CLINICAL HISTORY: Sepsis TECHNIQUE: Single frontal radiograph of the chest was obtained. Comparison: Comparison is made to chest radiograph 03/17/2023 FINDINGS: No lines and tubes are seen. Calcified aortic knob is seen. The lungs are clear. No evidence of pleur al effusion or pneumothorax. IMPRESSION: No acute chest disease. ACT 112: Negative or not required by law. Electronically signed by: Elías Srinivasan M.D. 04/18/2023 6:42 PM
[2023-04-18 18:50] LABS: Troponin I High Sensitivity 6.2 pg/ml (0-14)
[2023-04-18 19:08] LABS: Appearance Urine Clear (Clear); Bilirubin Urine Negative (Negative); Blood Urine Negative (Negative); Color Urine Yellow; Glucose Urine UA Negative (Negative); Ketones Urine Negative (Negative); Leukocyte Esterase Urine Negative (Negative); Nitrite Urine Negative (Negative); Protein Urine Negative (Negative); Specific Gravity Urine 1.011 (1.000-1.030); Urobilinogen Urine Negative (Negative)
--- NOTE | 2023-04-18 20:36 | CT Scan Report ---
Exam(s): CT HEAD Without Contrast EXAM: CT Head Without Intravenous Contrast CLINICAL HISTORY: Reason for exam: ams. TECHNIQUE: Axial computed tomography images of the head/brain without intravenous contrast. CTDI is 36.74 mGy and DLP is 703.85 mGy-cm. Automated exposure control was utilized for the study. A dose lowering technique was utilized adhering to the principles of ALARA. COMPARISON: CT head on 03/17/2023 FINDINGS: Brain: No acute infarct or hemorrhage identified. No extra-axial fluid collection. No mass effect or midline shift. Scattered areas of hypoattenuation in the supratentorial white matter likely represent chronic small vessel ischemic changes. Stable encephalomalacia and bilateral parietal lobes and left cerebellar hemisphere. Ventricles and sulci: Prominence of the ventricles and sulci is likely secondary to cerebral volume loss. Bones: Moderate hyperostosis frontalis interna. No bony lesion or acute fracture. Subcutaneous tissues: Normal. Sinuses: Normal. No air-fluid levels or mucosal thickening. Mastoid air cells: Normal. Orbits: Grossly unremarkable. Other: Atherosclerotic calcifications in the intracranial vasculature. IMPRESSION: 1. No acute intracranial abnormality. 2. Chronic small vessel ischemic changes and cerebral volume loss. Stable encephalomalacia and bilateral parietal lobes and left cerebellar hemisphere. Electronically signed by: Tiesha Brown M.D. 04/18/23 20:35 PM
[2023-04-18] MEDS ORDERED: POLYETHYLENE (MIRALAX) 17 GM PACK PO PRN (23:44)
[2023-04-18] MEDS ORDERED: GLUCAGON FOR INJ 1 MG VIAL SQ PRN (23:44)
[2023-04-18] MEDS ORDERED: GLUCOSE 10 TAB/TUBE PO PRN (23:44)
[2023-04-18] MEDS ORDERED: DEXTROSE 50% 50 ML SYRINGE IV PRN (23:44)
[2023-04-18] MEDS ORDERED: CARBOHYDRATES FOR HYPOGLYCEMIA PO PRN (23:44)
[2023-04-18] MEDS ORDERED: DOCUSATE SODIUM 100 MG CAP PO PRN (23:44)
[2023-04-18] MEDS ORDERED: GLUCOSE 40% GEL 15 GM TUBE PO PRN (23:44)
[2023-04-18] MEDS ORDERED: ONDANSETRON INJ 2 MG/ML 2 ML VIAL IV PRN (23:44)
[2023-04-18] MEDS ORDERED: SODIUM CHLORIDE 0.9% 1000ML 1,000 ML IV SCH (23:44)
[2023-04-18] MEDS ORDERED: ACETAMINOPHEN 325 MG TAB PO PRN (23:44)
[2023-04-19] MEDS ORDERED: ACETAMINOPHEN 325 MG TAB PO PRN (00:04)
[2023-04-19 00:30] LABS: Phosphorus 4.4 mg/dl (2.5-4.9)
[2023-04-19] MEDS: cefTRIAXone SODIUM 1,000 MG in DEXTROSE 5% AD-VAN 50 ML IV SCH (00:44)
--- NOTE | 2023-04-19 03:20 | History & Physical Report ---
Date of Service April 18, 2023 Assessment & Plan (1) AMS (altered mental status): Plan: Patient reportedly obtunded for several hours prior to arrival to the ER. Afebrile, HD stable. Labs as above. Possibly ongoing infection, possibly encephalopathy secondary to Cipro use, volume contraction/SKY contributing as well. Patient seemingly improving with IVF as she is now able to answer some questions. -DC Cipro -Treat UTI with Ceftriaxone -Frequent orientation -Gentle IVF -Repeat labs for AM - BMP, CMP, CK and Hepatic function -Continue Aricept (2) UTI (urinary tract infection), uncomplicated: Plan: As above. Patient is afebrile, HD stable and non-toxic in appearance -Ceftriaxone -Tylenol as needed for pain or fever (3) CHF (congestive heart failure): Plan: Chronic. Compensated. Patient seems to be slightly dry on exam -Continue Carvedilol (4) Diabetes: Plan: Chronic. BLood sugar well controlled -ISS -Goal blood sugar 110 - 140 (5) GERD (gastroesophageal reflux disease): Plan: Chronic. Well controlled -Continue Protonix (6) Hypothyroidism: Plan: Chronic -Continue Synthroid F/E/N - NSS at 50mL/hr x 1L, electroltyes WNL, CC/AHA diet as needed Ppx - Low risk for DVT Code - Full per discussion with patient Dispo - Admit to medical Admission and Anticipated Discharge Date Admission Date: April 18, 2023 History of Present Illness Chief Complaint: unresponsive episode Primary Care Provider: Bonifacio Ibanez DO Deanna Mccormack is a 77yo female with history of DM, HTN, HLP, Hypothyroidism and GERD presenting from home with episode of unresponsiveness. Patient was recently admitted to [facility] from 03/17/23 - 03/20/23 with generalized weakness and UTI. Her urine culture from that admission was POSITIVE for two species of Klebsiella pneumonia. She was treated with Ciprofloxacin and discharged in stable condition to [facility]. Patient had friends from her [employer] over in the morning - around approximately 10:00AM - no mention of illness or odd behavior. Patient's grandson saw her at 12:00 and she was unresponsive. The grandson called the patient's son and he came to the home - she remained unresponsive. Patient's son states that she was breathing normally and had a pulse of 60-70 but did not wake up even to deep sternal rub. EMS was called at 16:00. Family states that patient did not move with IV placement. BSG reported to be in the 140's. She was brought to [facility] ER. In the ER she is afebrile, HD stable. IVF given Patient does answer some questions, yes or no and is able to follow some commands but is very encephalopathic. ER Course: NSS x 2L Allergies Allergy/AdvReac Type Severity Reaction Status Date / Time aspirin Allergy Severe Hives Verified 03/17/23 16:18 NSAIDS (Non-Steroidal Allergy Intermediate Hives Verified 03/17/23 16:18 Anti-Inflamma Penicillins Allergy Intermediate Hives Verified 03/17/23 16:18 fenofibrate Allergy Unknown ON PT MED Verified 03/17/23 16:18 LIST propoxyphene Allergy Unknown ON PT MED Verified 03/17/23 16:18 LIST Home Medications Medication Instructions Recorded Confirmed Type carvedilol 3.125 mg tablet 3.125 mg PO BID 01/29/22 03/17/23 History paroxetine HCl 20 mg tablet 20 mg PO HS 01/29/22 03/17/23 History rosuvastatin 20 mg tablet 20 mg PO DAILY 01/29/22 03/17/23 History donepezil 5 mg tablet 5 mg PO HS #30 tabs 01/06/23 03/17/23 Rx ergocalciferol (vitamin D2) 1,250 1,250 mcg PO WK 01/14/23 03/17/23 History mcg (50,000 unit) capsule (Vitamin D2) metformin 1,000 mg tablet 1,000 mg PO QAM 01/14/23 03/17/23 History omeprazole 20 mg capsule,delayed 40 mg PO DAILY 01/14/23 03/17/23 History release furosemide 20 mg tablet 20 mg PO QAM #30 tabs 01/29/23 03/17/23 Rx potassium chloride 20 mEq 20 meq PO QAM #30 tabs 01/29/23 03/17/23 Rx tablet,extended release(part/cryst) cholecalciferol (vitamin D3) 25 25 mcg PO DAILY 03/17/23 03/17/23 History mcg (1,000 unit) capsule (Vitamin D3) levothyroxine 25 mcg tablet 25 mcg PO QAM 03/17/23 03/17/23 History (Synthroid) multivitamin with minerals-folic 1 tab PO QAM 03/17/23 03/17/23 History acid 200 mcg chewable tablet (Adult Multivitamin Gummies) ciprofloxacin HCl 250 mg tablet 250 mg PO Q12H #0 tabs 03/20/23 Rx magnesium oxide 400 mg (241.3 mg 400 mg PO BID #0 tabs 03/20/23 Rx magnesium) tablet acetaminophen 500 mg tablet 650 mg PO Q4H PRN Pain 04/16/23 04/16/23 History (Tylenol Extra Strength) Past Med/Surg History Medical History (Updated 04/19/23 @ 03:27 by Estela Tyson DO) Bladder spasms CHF (congestive heart failure) Dementia Depression Diabetes GERD (gastroesophageal reflux disease) HLD (hyperlipidemia) HTN (hypertension) Hypothyroidism 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 No pertinent family history Strain of rotator cuff of right shoulder Surgical History History of back surgery No pertinent past surgical history S/P appendectomy S/P colonoscopy S/P hysterectomy Status post right knee replacement Social History Smoking Status: Unknown if ever smoked Second Hand Exposure: No; Do You Dip or Chew Tobacco: No; Hx Alcohol Use: No Hx Substance Use: No Preferred Language: Bulgarian Communication Ability: Effective Visual Impairment: No Limitations Hearing Ability: Normal Metallurgy Teacher Required: No Beliefs That Will Affect Care: None marital status: / Current Living Situation: Alone Current Living Situation Comment: [facility] current occupational status: retired Feels Safe at Home: Yes Childhood Exposure to Second-Hand Smoke: No Diet: diabetic Dental Care, Regularly: No Physical Activity Frequency: Does not Exercise Seatbelt Use: always Sunscreen Use: No Assistive Devices: Cane, Glasses and Walker Review of Systems Review of Systems: All systems reviewed & are unremarkable except as noted in HPI & below Physical Exam Physical Exam: General: patient resting comfortably, NAD, non-toxic in appearance, somnolent, minimally arousable, protecting airway Skin: warm, dry, intact, no rashes or lesions HEENT: NC/AT, PERRL, EOMI, anicteric sclera, conjunctiva without injection, external ear normal to inspection and nontender, nares patent, moist mucus membranes, dentition intact, no oropharyngeal lesions, neck supple, trachea midline, no LAD, no thyromegaly, no JVD Heart: +S1/S2, regular, no m/r/g Lungs: equal air entry bilaterally, no rales/rhonchi/wheezes Abd: +BS, soft, NT/ND, no masses/organomegaly/ascites Ext: warm, 2+ pulses in UE/LE bilaterally, no clubbing/cyanosis or edema Neuro:able to move all extremities with generalized weakness Results & Data Results & Data Vital Signs (Past 12 Hours) Vital Signs Temp Pulse Pulse Resp BP BP Pulse Ox 04/18/23 23:35 36.6 C 69 18 148/95 H 94 04/18/23 22:15 74 17 98 04/18/23 22:00 69 15 04/18/23 22:00 145/76 H 04/18/23 21:45 67 18 97 04/18/23 21:30 72 16 04/18/23 21:30 151/75 H 04/18/23 21:15 69 14 93 04/18/23 21:00 70 15 95 04/18/23 21:00 149/67 H 04/18/23 20:45 64 17 95 04/18/23 20:30 62 13 96 04/18/23 20:30 148/71 H 04/18/23 20:27 135/69 04/18/23 20:27 67 18 95 04/18/23 20:25 63 13 97 04/18/23 19:30 67 16 93 04/18/23 19:30 131/58 L 04/18/23 19:15 72 17 96 04/18/23 19:00 65 15 95 04/18/23 19:00 138/61 04/18/23 18:45 63 16 96 04/18/23 18:30 76 20 95 04/18/23 18:30 141/73 H 04/18/23 18:15 73 18 94 04/18/23 18:01 68 20 94 04/18/23 18:01 137/69 04/18/23 18:00 67 19 04/18/23 17:45 68 22 04/18/23 17:33 69 15 97 04/18/23 17:12 36.9 C 70 20 131/84 98 04/18/23 17:35 71 O2 Del Method 04/18/23 23:35 Room Air 04/18/23 22:15 04/18/23 22:00 04/18/23 22:00 04/18/23 21:45 04/18/23 21:30 04/18/23 21:30 04/18/23 21:15 04/18/23 21:00 04/18/23 21:00 04/18/23 20:45 04/18/23 20:30 04/18/23 20:30 04/18/23 20:27 04/18/23 20:27 04/18/23 20:25 04/18/23 19:30 04/18/23 19:30 04/18/23 19:15 04/18/23 19:00 04/18/23 19:00 04/18/23 18:45 04/18/23 18:30 04/18/23 18:30 04/18/23 18:15 04/18/23 18:01 04/18/23 18:01 04/18/23 18:00 04/18/23 17:45 04/18/23 17:33 04/18/23 17:12 Room Air 04/18/23 17:35 Laboratory Results Laboratory Results WBC 6.79 K/ul (4.8-10.8) 04/18/23 18:00 RBC 4.03 M/uL (4.20-5.40) L 04/18/23 18:00 Hgb 12.2 g/dl (12.0-16.0) 04/18/23 18:00 Hct 36.7 % (37.0-47.0) L 04/18/23 18:00 MCV 91.1 fL (80.0-100.0) 04/18/23 18:00 MCH 30.3 pg (25.0-34.0) 04/18/23 18:00 MCHC 33.2 g/dL (32.0-36.0) 04/18/23 18:00 RDW Std Deviation 46.1 fL (36.4-46.3) 04/18/23 18:00 RDW Coeff of Sam 13.7 % (11.5-14.5) 04/18/23 18:00 Plt Count 265 K/uL (130-400) 04/18/23 18:00 MPV 10.0 fL (9.4-12.4) 04/18/23 18:00 Immature Gran % (Auto) 0.1 % 04/18/23 18:00 Neut % (Auto) 34.4 % 04/18/23 18:00 Lymph % (Auto) 45.9 % 04/18/23 18:00 [place] % (Auto) 15.2 % 04/18/23 18:00 Eos % (Auto) 3.4 % 04/18/23 18:00 Baso % (Auto) 1.0 % 04/18/23 18:00 Neut # (Auto) 2.33 K/uL (1.40-6.50) 04/18/23 18:00 Lymph # (Auto) 3.12 K/uL (1.2-3.4) 04/18/23 18:00 [place] # (Auto) 1.03 K/uL (0.11-0.59) H 04/18/23 18:00 Eos # (Auto) 0.23 K/uL (0-0.50) 04/18/23 18:00 Baso # (Auto) 0.07 K/uL (0-0.2) 04/18/23 18:00 Immature Gran # (Auto) 0.01 K/uL (0.01-0.20) 04/18/23 18:00 Sodium 140 mmol/L (136-145) 04/18/23 18:00 Potassium 3.9 mmol/L (3.5-5.1) 04/18/23 18:00 Chloride 105 mmol/L (98-107) 04/18/23 18:00 Carbon Dioxide 24 mmol/L (21-32) 04/18/23 18:00 Anion Gap 11 (3-11) 04/18/23 18:00 BUN 21 mg/dl (6-23) 04/18/23 18:00 Creatinine 1.42 mg/dl (0.6-1.2) H 04/18/23 18:00 Est Cr Clr Drug Dosing 18.7 ml/min 04/18/23 18:00 Est GFR ( Amer) 40.6 ml/min 04/18/23 18:00 Est GFR (Non-Af Amer) 35.0 ml/min 04/18/23 18:00 BUN/Creatinine Ratio 14.8 (10-20) 04/18/23 18:00 Glucose 117 mg/dl (70-99(Fasting)) H 04/18/23 18:00 POC Glucose 119 mg/dl (70-99) H 04/18/23 23:51 Lactate 2.7 mmol/L (0.4-2.0) H* 04/18/23 19:43 Calcium 10.1 mg/dl (8.6-10.3) 04/18/23 18:00 Phosphorus 4.4 mg/dl (2.5-4.9) 04/18/23 18:00 Magnesium 1.8 mg/dl (1.7-2.4) 04/18/23 18:00 Total Bilirubin 0.8 mg/dl (0.2-1.0) 04/18/23 18:00 Direct Bilirubin 0.1 mg/dl (0-0.2) 04/18/23 19:23 AST 20 U/L (13-39) 04/18/23 18:00 ALT 10 U/L (7-52) 04/18/23 18:00 Alkaline Phosphatase 50 U/L (34-104) 04/18/23 18:00 Troponin I High Sens 6.2 pg/ml (0-14) 04/18/23 18:00 Total Protein 6.8 gm/dl (6.0-8.3) 04/18/23 18:00 Albumin 4.1 gm/dl (3.4-5.0) 04/18/23 18:00 Procalcitonin < 0.05 ng/ml (0-0.5) 04/18/23 18:00 TSH 2.874 uIu/ml (0.300-4.500) 04/18/23 18:00 Urine Color Yellow 04/18/23 18:45 Urine Appearance Clear (Clear) 04/18/23 18:45 Urine pH 5.0 (4.5-7.5) 04/18/23 18:45 Ur Specific [place] 1.011 (1.000-1.030) 04/18/23 18:45 Urine Protein Negative (Negative) 04/18/23 18:45 Urine Glucose (UA) Negative (Negative) 04/18/23 18:45 Urine Ketones Negative (Negative) 04/18/23 18:45 Urine Blood Negative (Negative) 04/18/23 18:45 Urine Nitrite Negative (Negative) 04/18/23 18:45 Urine Bilirubin Negative (Negative) 04/18/23 18:45 Urine Urobilinogen Negative (Negative) 04/18/23 18:45 Ur Leukocyte Esterase Negative (Negative) 04/18/23 18:45 SARS-CoV-2, RNA, NAAT NEGATIVE (NEGATIVE) 04/18/23 18:10 Impressions Chest X-Ray 04/18/23 17:48 XR chest 1V portable CLINICAL HISTORY: Sepsis TECHNIQUE: Single frontal radiograph of the chest was obtained. Comparison: Comparison is made to chest radiograph 03/17/2023 FINDINGS: No lines and tubes are seen. Calcified aortic knob is seen. The lungs are clear. No evidence of pleural effusion or pneumothorax. IMPRESSION: No acute chest disease. ACT 112: Negative or not required by law. Electronically signed by: Elías Srinivasan M.D. 04/18/2023 6:[address] 04/18/23 17:49 Exam(s): CT HEAD Without Contrast EXAM: CT Head Without Intravenous Contrast CLINICAL HISTORY: Reason for exam: ams. TECHNIQUE: Axial computed tomography images of the head/brain without intravenous contrast. CTDI is 36.74 mGy and DLP is 703.85 mGy-cm. Automated exposure control was utilized for the study. A dose lowering technique was utilized adhering to the principles of ALARA. COMPARISON: CT head on 03/17/2023 FINDINGS: Brain: No acute infarct or hemorrhage identified. No extra-axial fluid collection. No mass effect or midline shift. Scattered areas of hypoattenuation in the supratentorial white matter likely represent chronic small vessel ischemic changes. Stable encephalomalacia and bilateral parietal lobes and left cerebellar hemisphere. Ventricles and sulci: Prominence of the ventricles and sulci is likely secondary to cerebral volume loss. Bones: Moderate hyperostosis frontalis interna. No bony lesion or acute fracture. Subcutaneous tissues: Normal. Sinuses: Normal. No air-fluid levels or mucosal thickening. Mastoid air cells: Normal. Orbits: Grossly unremarkable. Other: Atherosclerotic calcifications in the intracranial vasculature. IMPRESSION: 1. No acute intracranial abnormality. 2. Chronic small vessel ischemic changes and cerebral volume loss. Stable encephalomalacia and bilateral parietal lobes and left cerebellar hemisphere. Electronically signed by: Tiesha Brown M.D. 04/18/23 20:35 PM PG Care Time/CCT Total # of Minutes Spent Total Time Spent with Patient: Total time spent is greater than 50% in coordination of care (as documented) at patient's floor/unit and/or counseling patient: Coding Level of Care Code 13573 INT INP/OBS CARE 3/75MIN Diagnoses AMS (altered mental status) R41.82 UTI (urinary tract infection), uncomplicated N39.0 CHF (congestive heart failure) I50.9 Diabetes E11.9 GERD (gastroesophageal reflux disease) K21.9 Hypothyroidism E03.9
[2023-04-19] MEDS: LEVOTHYROXINE SODIUM 25 MCG TABLET PO SCH (06:08)
[2023-04-19 07:25] LABS: Hematocrit (blood only) 32.8 % (37.0-47.0); Hemoglobin 11.1 g/dl (12.0-16.0); Mean Corpuscular Hgb Conc 33.8 g/dL (32.0-36.0); Mean Corpuscular Volume 88.6 fL (80.0-100.0); Mean Platelet Volume 9.9 fL (9.4-12.4); Platelet Count 207 K/uL (130-400); RDW Coefficient of Variation 13.6 % (11.5-14.5); RDW Standard Deviation 43.9 fL (36.4-46.3); White Blood Count 6.23 K/ul (4.8-10.8)
[2023-04-19 07:32] LABS: Albumin Level 3.4 gm/dl (3.4-5.0); BUN Creatinine Ratio 14.3 (10-20); Bilirubin Direct 0.2 mg/dl (0-0.2); Bilirubin,Total 0.7 mg/dl (0.2-1.0); Calcium 8.5 mg/dl (8.6-10.3); Est GFR (African American) 58.5 ml/min; Est GFR (Non-African American) 50.5 ml/min; Potassium 3.2 mmol/L (3.5-5.1); Total Protein 5.8 gm/dl (6.0-8.3)
[2023-04-19] MEDS: INSULIN ASPART PER UNIT CHARGE SC SCH ×4 (09:28→20:36)
[2023-04-19] MEDS: carvediloL 3.125 MG TAB PO SCH ×2 (09:29→20:25)
[2023-04-19] MEDS: PANTOprazole 40 MG TAB PO SCH (09:29)
[2023-04-19] MEDS: ROSUVASTATIN CALCIUM 20 MG TAB PO SCH (09:30)
[2023-04-19] MEDS: FUROSEMIDE 20 MG TAB PO SCH (09:30)
--- NOTE | 2023-04-19 11:42 | Hospitalist Progress Note ---
Date of Service April 19, 2023 Assessment & Plan (1) AMS (altered mental status): Plan: I think were dealing with progression of underlying dementia rather than an acute metabolic encephalopathy. Admission urine analysis is unremarkable although urine cultures and blood cultures are pending. She will remain on IV antibiotic until active infection is ruled out. I spoke to the daughter by phone. She will discuss with her brothers what living arrangements their mother should have. I do not feel she should be alone. I do not believe this was a reaction to Cipro antibiotic . Continue Aricept (2) UTI (urinary tract infection), uncomplicated: Plan: Urine analysis on admission was unremarkable. I do not believe she has an active UTI. Awaiting urine culture results. Continue Rocephin for now. (3) CHF (congestive heart failure): Plan: Chronic diastolic. No current exacerbation. Monitor intake and output. Continue current medical management (4) Diabetes: Plan: Type II. ADA diet. Sliding scale coverage as needed. (5) GERD (gastroesophageal reflux disease): Plan: Stable. Continue Protonix (6) Hypothyroidism: Plan: Stable. Continue Synthoid Plan To be determined. Siblings are discussing the matter between themselves regarding her living arrangements. I believe she either needs to live with one of the children or she needs placement Admission and Anticipated Discharge Date Admission Date: April 18, 2023 Subjective The patient is awake and alert. I believe her current symptoms are more exacerbation and progression of her dementia rather than an acute metabolic encephalopathy. Urine analysis is unremarkable. Urine and blood cultures are pending and she is on IV antibiotics but I do not think this represents acute metabolic encephalopathy from a UTI. I spoke to her daughter, Ary, by phone and explained to her the situation. The patient lives alone but I think it is time she either lives with family members or is placed in a usp. They will discuss that matter amongst themselves and get back to us. Review of Systems Review of Systems: Constitutional-no fever or chills ENT-no blurred vision, no double vision, no epistaxis, no sore throat Respiratory-no cough, no wheezing, no shortness of breath Cardiac-no palpitations, no chest pain, no syncope GI-no nausea, vomiting, diarrhea, melena, hematochezia -no urinary retention, no urinary incontinence, no dysuria, no hematuria Musculoskeletal-no joint pain, no muscle tenderness Skin-no bruising, no rashes, no pruritus Neuro-no isolated weakness, no paresthesia Psych-no depression, no anxiety. Intermittent confusion is the main problem Physical Exam Physical Exam: General-alert and oriented to name and place. No fevers, no chills HEENT-head atraumatic and normocephalic, pupils equal and reactive to light, extraocular muscles intact Neck-no lymphadenopathy or thyromegaly, trachea midline Chest-clear to auscultation percussion. No rales wheezing or rhonchi Cardiac-regular rate and rhythm, normal S1 and S2, no murmurs Abdomen-normal bowel sounds, nontender, no hepatosplenomegaly Extremities-no cyanosis, clubbing, or edema Neuro-cranial nerves II through XII intact, motor and sensory function within normal limits, strength symmetrical , no focal deficits Psych-normal affect, normal mood. She is oriented to name and place Results & Data Results & Data Vital Signs (Past 12 Hours) Vital Signs Temp Pulse Resp BP Pulse Ox O2 Del Method 04/19/23 09:05 36.4 C L 69 18 147/68 H 93 Room Air 04/18/23 23:47 94 Room Air 04/18/23 23:47 Room Air 04/18/23 23:47 Room Air 04/18/23 23:47 36.6 C 69 16 148/95 H 94 Room Air Laboratory Results 04/19/23 06:50 04/19/23 06:50 PG Care Time/CCT Total # of Minutes Spent Total Time Spent with Patient: Total time spent is greater than 50% in coordination of care (as documented) at patient's floor/unit and/or counseling patient: Coding Level of Care Code 46004 SUB INP/OBS CARE 3/50MIN Diagnoses AMS (altered mental status) R41.82 UTI (urinary tract infection), uncomplicated N39.0 CHF (congestive heart failure) I50.9 Diabetes E11.9 GERD (gastroesophageal reflux disease) K21.9 Hypothyroidism E03.9
--- NOTE | 2023-04-19 14:08 | Electrocardiogram Report ---
Test Reason : Blood Pressure : / mmHG Vent. Rate : 070 BPM Atrial Rate : 070 BPM P-R Int : 208 ms QRS Dur : 142 ms QT Int : 462 ms P-R-T Axes : 027 -17 076 degrees QTc Int : 498 ms Normal sinus rhythm Left bundle branch block Abnormal ECG When compared with ECG of 17-MAR-2023 13:34, No significant change was found Confirmed by Rusty Lemon ([id number]) on 04/19/2023 2:07:37 PM Referred By: REFERRED SELF Confirmed By:Rusty Lemon
[2023-04-19] MEDS ORDERED: PARoxetine HCL 20 MG TAB PO SCH (21:00)
[2023-04-19] MEDS ORDERED: DONEPEZIL HCL 5 MG TAB PO SCH (21:00)
[2023-04-20] MEDS: cefTRIAXone SODIUM 1,000 MG in DEXTROSE 5% AD-VAN 50 ML IV SCH (00:25)
[2023-04-20] MEDS: LEVOTHYROXINE SODIUM 25 MCG TABLET PO SCH (05:59)
[2023-04-20 08:35] LABS: Basophils # (auto) 0.08 K/uL (0-0.2); Basophils % (auto) 1.5 %; Eosinophils # (auto) 0.25 K/uL (0-0.50); Eosinophils % (auto) 4.6 %; Hematocrit (blood only) 32.7 % (37.0-47.0); Hemoglobin 10.9 g/dl (12.0-16.0); Immature Granulocytes # (auto) 0.01 K/uL (0.01-0.20); Immature Granulocytes % (auto) 0.2 %; Lymphocytes # (auto) 2.13 K/uL (1.2-3.4); Lymphocytes % (auto) 39.3 %; Mean Corpuscular Hgb Conc 33.3 g/dL (32.0-36.0); Mean Corpuscular Volume 90.1 fL (80.0-100.0); Mean Platelet Volume 9.9 fL (9.4-12.4); Monocytes # (auto) 0.77 K/uL (0.11-0.59); Monocytes % (auto) 14.2 %; Neutrophils # (auto) 2.18 K/uL (1.40-6.50); Neutrophils % (auto) 40.2 %; Platelet Count 193 K/uL (130-400); RDW Coefficient of Variation 13.4 % (11.5-14.5); RDW Standard Deviation 44.2 fL (36.4-46.3); Red Blood Count 3.63 M/uL (4.20-5.40); White Blood Count 5.42 K/ul (4.8-10.8)
[2023-04-20 08:50] LABS: BUN Creatinine Ratio 11.1 (10-20); Calcium 8.9 mg/dl (8.6-10.3); Creatinine Clr Calc Pharmacy 48.6 ml/min; Est GFR (African American) 56.5 ml/min; Est GFR (Non-African American) 48.8 ml/min; Potassium 3.3 mmol/L (3.5-5.1)
[2023-04-20] MEDS: INSULIN ASPART PER UNIT CHARGE SC SCH ×3 (09:50→18:06)
[2023-04-20] MEDS: PANTOprazole 40 MG TAB PO SCH (09:51)
[2023-04-20] MEDS: carvediloL 3.125 MG TAB PO SCH (09:51)
[2023-04-20] MEDS: ROSUVASTATIN CALCIUM 20 MG TAB PO SCH (09:51)
[2023-04-20] MEDS: FUROSEMIDE 20 MG TAB PO SCH (09:51)
[2023-04-20] MEDS ORDERED: POTASSIUM CHLORIDE CRTAB 20 MEQ TABCR PO SCH (10:15)
--- NOTE | 2023-04-20 12:47 | CT Scan Report ---
CT head/brain wo con CLINICAL HISTORY: unresponsive Technique: Contiguous axial CT images of the head were acquired from the base of the skull to the yuan candy without intravenous contrast administration. Images were viewed in brain, subdural and [facility]. Automated dose lowering techniques and/or adjustment according to patient size were utilized for this exam. Comparison: Comparison is made to CT head 04/18/2023 Findings: Areas of decreased attenuation are present in the periventricular and subcortical white matter bilate rally consistent with small vessel ischemic disease. Generalized cerebral atrophy with commensurate e nlargement of the ventricles, sulci, and cisterns is also present. There is no acute intracranial hem orrhage or evidence of acute territorial infarction. No shift of the midline structures, mass effect, or extra-axial abnormalities are shown. Atherosclerotic calcifications are present in the intracran ial segments of the internal carotid arteries. Foci of encephalomalacia in the left cerebellum and pa rietal lobe are unchanged from prior exam compatible with chronic infarcts. Imaged portions of the paranasal sinuses and mastoid air cells are clear. The orbits appear normal. There are no acute fractures of the calvaria or scalp swelling. Impression: No acute intracranial hemorrhage, no evidence of acute territorial infarction or other acute intracra nial disease process. ACT 112: Negative or not required by law. Electronically signed by: Elías Srinivasan M.D. 04/20/2023 12:46 PM
[2023-04-20] MEDS ORDERED: CARBOHYDRATES FOR HYPOGLYCEMIA PO PRN (13:20)
[2023-04-20] MEDS ORDERED: DEXTROSE 50% 50 ML SYRINGE IV PRN (13:20)
[2023-04-20] MEDS ORDERED: GLUCAGON FOR INJ 1 MG VIAL SQ PRN (13:20)
[2023-04-20] MEDS ORDERED: GLUCOSE 10 TAB/TUBE PO PRN (13:20)
[2023-04-20] MEDS ORDERED: GLUCOSE 40% GEL 15 GM TUBE PO PRN (13:20)
[2023-04-20] MEDS: NSS + 20MEQ KCL 20 MEQ/1,000 ML BAG IV SCH (14:27)
--- NOTE | 2023-04-20 14:35 | Hospitalist Progress Note ---
Date of Service April 20, 2023 Assessment & Plan (1) AMS (altered mental status): Plan: Now unresponsive. Head CT scan negative for acute findings. This may be voluntary. We will request behavioral health evaluation tomorrow, April 21. Supportive care for now. Keep NPO. IV fluids ordered. I think were dealing with progression of underlying dementia rather than an acute metabolic encephalopathy. Admission urine analysis is unremarkable and urine and blood cultures are negative. Rocephin has been discontinued. The patient's children are in the room. They are aware of the current situation and aware that she will either need placement where she will need to live with one of them. I do not feel she should be alone. I do not believe this was a reaction to Cipro antibiotic. (2) UTI (urinary tract infection), uncomplicated: Plan: Ruled out. Urine analysis on admission was unremarkable. Urine culture negative. Rocephin has been discontinued. (3) CHF (congestive heart failure): Plan: Chronic diastolic. No current exacerbation. Monitor intake and output. (4) Diabetes: Plan: Type II. ADA diet. Sliding scale coverage as needed. (5) GERD (gastroesophageal reflux disease): Plan: Stable. Continue Protonix (6) Hypothyroidism: Plan: Stable. Continue Synthoid 1 taking p.o. Plan To be determined. Siblings are discussing the matter between themselves regarding her living arrangements. I believe she either needs to live with one of the children or she needs placement Admission and Anticipated Discharge Date Admission Date: April 20, 2023 Subjective Unresponsive this morning. The patient tries to forcibly keep her eyes closed but when the eyes are opened forcibly she rolls both eyes back symmetrically. Stat head CT scan is negative for any new pathology. Family is in attendance and they are aware that she will either need placement at discharge or will need to stay with one of them. She cannot live alone. Parenteral potassium replacement and IV fluids ordered. She is now n.p.o. We will request behavioral health evaluation tomorrow. Review of Systems Review of Systems: The patient will not answer any questions regarding review of systems Physical Exam Physical Exam: General-unresponsive. s HEENT-head atraumatic and normocephalic, she forcibly tries to keep her eyes closed against forced opening. When both eyes are exposed, she rolls both eyes backward symmetrically Neck-no lymphadenopathy or thyromegaly, trachea midline Chest-clear to auscultation percussion anteriorly. No rales, wheezing or rh onchi Cardiac-regular rate and rhythm, normal S1 and S2, no murmurs Abdomen-normal bowel sounds, nontender, no hepatosplenomegaly Extremities-no discernible edema, no cyanosis Neuro-unresponsive. Cannot assess Psych-unresponsive. Cannot assess Results & Data Results & Data Vital Signs (Past 12 Hours) Vital Signs Temp Pulse Resp BP Pulse Ox O2 Del Method 04/20/23 13:00 37.1 C 57 L 14 144/83 H 91 Room Air 04/20/23 08:45 Room Air 04/20/23 07:44 36.3 C L 63 18 144/77 H 93 Room Air PG Care Time/CCT Total # of Minutes Spent Total Time Spent with Patient: Total time spent is greater than 50% in coordination of care (as documented) at patient's floor/unit and/or counseling patient: Coding Level of Care Code 79640 SUB INP/OBS CARE 3/50MIN Diagnoses AMS (altered mental status) R41.82 UTI (urinary tract infection), uncomplicated N39.0 CHF (congestive heart failure) I50.9 Diabetes E11.9 GERD (gastroesophageal reflux disease) K21.9 Hypothyroidism E03.9
[2023-04-20] MEDS ORDERED: Nursing to Pharmacy Communication SCH (14:45)
[2023-04-20] MEDS ORDERED: ACETAMINOPHEN 1,000 MG/100 ML VIAL IV PRN (15:24)
[2023-04-20] MEDS ORDERED: INSULIN ASPART PER UNIT CHARGE SC SCH (16:30)
[2023-04-21] MEDS: INSULIN ASPART PER UNIT CHARGE SC SCH ×5 (00:16→21:40)
[2023-04-21] MEDS: NSS + 20MEQ KCL 20 MEQ/1,000 ML BAG IV SCH (04:28)
[2023-04-21 07:39] LABS: Basophils # (auto) 0.06 K/uL (0-0.2); Basophils % (auto) 1.1 %; Eosinophils # (auto) 0.26 K/uL (0-0.50); Eosinophils % (auto) 4.9 %; Hematocrit (blood only) 31.3 % (37.0-47.0); Hemoglobin 10.5 g/dl (12.0-16.0); Immature Granulocytes # (auto) 0.01 K/uL (0.01-0.20); Immature Granulocytes % (auto) 0.2 %; Lymphocytes # (auto) 1.99 K/uL (1.2-3.4); Lymphocytes % (auto) 37.2 %; Mean Corpuscular Hemoglobin 30.2 pg (25.0-34.0); Mean Corpuscular Hgb Conc 33.5 g/dL (32.0-36.0); Mean Corpuscular Volume 89.9 fL (80.0-100.0); Mean Platelet Volume 9.9 fL (9.4-12.4); Monocytes # (auto) 0.72 K/uL (0.11-0.59); Monocytes % (auto) 13.5 %; Neutrophils # (auto) 2.31 K/uL (1.40-6.50); Neutrophils % (auto) 43.1 %; Platelet Count 178 K/uL (130-400); RDW Coefficient of Variation 13.4 % (11.5-14.5); RDW Standard Deviation 44.5 fL (36.4-46.3); Red Blood Count 3.48 M/uL (4.20-5.40); White Blood Count 5.35 K/ul (4.8-10.8)
[2023-04-21 07:57] LABS: BUN Creatinine Ratio 10.8 (10-20); Calcium 8.6 mg/dl (8.6-10.3); Creatinine Clr Calc Pharmacy 56.4 ml/min; Est GFR (African American) 67.7 ml/min; Est GFR (Non-African American) 58.5 ml/min; Potassium 3.7 mmol/L (3.5-5.1)
--- NOTE | 2023-04-21 12:47 | Hospitalist Progress Note ---
Date of Service April 21, 2023 Assessment & Plan (1) AMS (altered mental status): Plan: The patient is awake but oriented to name only. Usual oral medications have been restarted and IV fluids discontinued. Diet has been ordered. I believe this is further evidence that she needs long-term placement at discharge. Head CT scan negative for acute findings. She is disoriented and I do not believe behavioral health assessment will be of any benefit today. Supportive care for now. I believe we are dealing with progression of underlying dementia rather than an acute metabolic encephalopathy. Admission urine analysis is unremarkable and urine and blood cultures are negative. Rocephin has been discontinued. I do not feel she should live alone. I do not believe this was a reaction to Cipro antibiotic. (2) UTI (urinary tract infection), uncomplicated: Plan: Ruled out. Urine analysis on admission was unremarkable. Urine culture negative. Rocephin has been discontinued. (3) CHF (congestive heart failure): Plan: Chronic diastolic. No current exacerbation. Monitor intake and output. (4) Diabetes: Plan: Type II. ADA diet. Sliding scale coverage as needed. (5) GERD (gastroesophageal reflux disease): Plan: Stable. Continue Protonix (6) Hypothyroidism: Plan: Stable. Continue Synthoid 1 taking p.o. Plan Long-term care placement at discharge Admission and Anticipated Discharge Date Admission Date: April 20, 2023 Subjective The patient is now awake but she is confused. Oriented to name only. I believe this is further evidence that she needs placement. Usual oral medications have been restarted along with a diet. IV fluids discontinued. Placement proceedings underway Review of Systems Review of Systems: The patient is confused and cannot answer any questions regarding review of systems Physical Exam Physical Exam: General-alert and oriented x 1, no fevers, no chills HEENT-head atraumatic and normocephalic, pupils equal and reactive to light, extraocular muscles intact Neck-no lymphadenopathy or thyromegaly, trachea midline Chest-clear to auscultation percussion. No rales wheezing or rhonchi Cardiac-regular rate and rhythm, normal S1 and S2 Abdomen-normal bowel sounds, nontender, no hepatosplenomegaly Extremities-no cyanosis, clubbing, or edema Neuro-cranial nerves II through XII intact, motor and sensory function within normal limits, strength symmetrical , no focal deficits Psych-normal affect, normal mood Results & Data Results & Data Vital Signs (Past 12 Hours) Vital Signs Temp Pulse Pulse Resp BP Pulse Ox O2 Del Method 04/21/23 11:14 36.8 C 76 18 136/85 94 Room Air 04/21/23 09:34 74 127/81 04/21/23 08:00 60 04/21/23 07:40 36.4 C L 64 18 150/74 H 95 Room Air 04/21/23 02:59 36.8 C 63 18 105/65 93 Room Air Laboratory Results 04/21/23 07:19 04/21/23 07:19 PG Care Time/CCT Total # of Minutes Spent Total Time Spent with Patient: Total time spent is greater than 50% in coordination of care (as documented) at patient's floor/unit and/or counseling patient: Coding Level of Care Code 36186 SUB INP/OBS CARE 3/50MIN Diagnoses AMS (altered mental status) R41.82 UTI (urinary tract infection), uncomplicated N39.0 CHF (congestive heart failure) I50.9 Diabetes E11.9 GERD (gastroesophageal reflux disease) K21.9 Hypothyroidism E03.9
[2023-04-21] MEDS ORDERED: Nursing to Pharmacy Communication SCH (15:30)
[2023-04-21] MEDS: carvediloL 3.125 MG TAB PO SCH (16:25)
[2023-04-21] MEDS: metFORMIN HCL 500 MG TAB PO SCH (16:25)
[2023-04-21] MEDS: PARoxetine HCL 20 MG TAB PO SCH (21:47)
[2023-04-22] MEDS: LEVOTHYROXINE SODIUM 25 MCG TABLET PO SCH (06:07)
[2023-04-22 07:40] LABS: Basophils # (auto) 0.04 K/uL (0-0.2); Basophils % (auto) 0.7 %; Eosinophils # (auto) 0.18 K/uL (0-0.50); Eosinophils % (auto) 3.1 %; Hematocrit (blood only) 32.3 % (37.0-47.0); Hemoglobin 10.8 g/dl (12.0-16.0); Immature Granulocytes # (auto) 0.02 K/uL (0.01-0.20); Immature Granulocytes % (auto) 0.3 %; Lymphocytes % (auto) 34.6 %; Mean Corpuscular Hemoglobin 30.1 pg (25.0-34.0); Mean Corpuscular Hgb Conc 33.4 g/dL (32.0-36.0); Mean Platelet Volume 10.2 fL (9.4-12.4); Monocytes # (auto) 0.77 K/uL (0.11-0.59); Monocytes % (auto) 13.3 %; Neutrophils # (auto) 2.77 K/uL (1.40-6.50); Platelet Count 183 K/uL (130-400); RDW Coefficient of Variation 13.5 % (11.5-14.5); RDW Standard Deviation 44.6 fL (36.4-46.3); Red Blood Count 3.59 M/uL (4.20-5.40); White Blood Count 5.78 K/ul (4.8-10.8)
[2023-04-22 08:01] LABS: BUN Creatinine Ratio 9.8 (10-20); Calcium 8.9 mg/dl (8.6-10.3); Creatinine Clr Calc Pharmacy 47.1 ml/min; Est GFR (African American) 54.1 ml/min; Est GFR (Non-African American) 46.7 ml/min; Potassium 3.7 mmol/L (3.5-5.1)
[2023-04-22] MEDS: FUROSEMIDE 20 MG TAB PO SCH (08:18)
[2023-04-22] MEDS: ROSUVASTATIN CALCIUM 20 MG TAB PO SCH (08:18)
[2023-04-22] MEDS: PANTOprazole 40 MG TAB PO SCH (08:18)
[2023-04-22] MEDS: POTASSIUM CHLORIDE CRTAB 20 MEQ TABCR PO SCH (08:18)
[2023-04-22] MEDS: carvediloL 3.125 MG TAB PO SCH ×2 (08:19→17:39)
[2023-04-22] MEDS: DONEPEZIL HCL 5 MG TAB PO SCH (08:19)
[2023-04-22 09:59] LABS: Base Excess VBG -1.2 mEq/L; HCO3 VBG 24 mmol/L; Oxygen Saturation VBG 69.8 %; PCO2 VBG 39 mmHg (38-50); PO2 VBG 44 mmHg; pH VBG 7.39 (7.36-7.41)
[2023-04-22] MEDS: INSULIN ASPART PER UNIT CHARGE SC SCH ×4 (10:14→20:42)
--- NOTE | 2023-04-22 13:54 | Hospitalist Progress Note ---
Date of Service April 22, 2023 Assessment & Plan (1) AMS (altered mental status): Plan: Patient presented to the hospital significantly altered/obtunded by report. Ultimately this resolved without any specific intervention. Initial head CT was negative for acute findings. 04/20 - had another episode of lethargy where she had minimal response to deep sternal rub. Repeat head CT again negative for acute findings. Was transferred to [facility] on 04/20 and has remained in NSR since the transfer. Etiology of her episodes is uncertain - given her known extensive cerebrovascular disease recommend repeat MRI brain w/ and w/o contrast - r/o subacute CVA(s). If negative then obtain EEG - r/o seizures. Certainly she is at risk of seizures due to multiple old CVAs. Ammonia, VBG wnl today. No infectious etiologies found. B1 level sent; while awaiting level start on thiamine 200mg BID. (2) CHF (congestive heart failure): Plan: Chronic diastolic. Compensated. Cont coreg BID. Cont lasix daily. (3) Diabetes: Plan: a1c 7.9% in 01/2023. cont novolog SSI. is also on metformin 1000mg daily. recheck a1c while here. (4) GERD (gastroesophageal reflux disease): Plan: Continue Protonix (5) Hypothyroidism: Plan: Continue Synthroid 25mcg daily. Recent TSH wnl. (6) HTN (hypertension): Plan: Cont coreg Cont lasix Controlled (7) HLD (hyperlipidemia): Plan: Cont crestor 20mg daily (8) Abnormal brain MRI: Plan: 03/05/23 MRI brain with b/l parietal lobe CVAs and b/l cerebellar CVAs - all old. Also with pachymeningeal thickening of uncertain significance. Saw [facility] in clinic in the spring for her dementia and the abnormal brain MRIs. Will plan to repeat a brain MRI today - w/ and w/o contrast. r/o subacute CVAs. recheck pachymeningeal thickening. low threshold for neurology consultation. (9) LBBB (left bundle branch block): Plan: chronic, old (10) Morbid obesity: Plan: BMI 40.8 (11) Dementia: Plan: known diagnosis this is likely on the basis of vascular disease/multiple old strokes cont aricept daily follows with [facility] (12) Cerebrovascular disease: Plan: multiple old strokes on past MRI brain imaging (b/l parietal lobe CVAs, b/l cerebellar CVAs) I am uncertain why she is not on antiplatelet therapy but strongly consider such b/l strokes, however, would argue for embolic etiology (a.fib, etc) repeat brain MRI pending Plan remove candelario PT, OT long-term care placement at discharge left message for pt's family on voicemail this evening Admission and Anticipated Discharge Date Admission Date: April 20, 2023 Subjective patient sitting in the chair watching TV during the visit denied any complaints knew she was in the hospital, that it was "23" (for year), and that it was April she otherwise could not provide any other meaningful history she doesn't recall any events that led to her admission telemetry overnight - NSR Review of Systems Review of Systems: gen - eating well cv - no chest pain pulm - no dyspnea GI - no abd pain Physical Exam Physical Exam: gen - morbidly obese, pleasant confusion face - no droop mouth - MMM neck - no JVD heart - RRR, s1 s2 lungs - CTA b/l (scant dry rales b/l bases only) abd - soft NT ND BS+ ext - 1+ edema b/l, pulses 2+ b/l neuro - strength b/l legs 5/5; handgrip 5/5 b/l; with flexing and extending the arms she was about 4/5 b/l; +dysmetria finger/nose/finger maneuver b/l, worse on left; gait not tested Results & Data Results & Data Vital Signs (Past 12 Hours) Vital Signs Temp Pulse Resp BP Pulse Ox O2 Del Method 04/22/23 11:35 36.5 C 69 16 106/67 95 Room Air 04/22/23 08:00 36.5 C 67 18 135/73 95 Room Air 04/22/23 03:23 36.9 C 64 20 118/72 95 Room Air Laboratory Results Laboratory Results - last 24 hr 04/21/23 04/21/23 04/22/23 16:09 20:15 07:02 WBC RBC Hgb Hct MCV MCH MCHC RDW Std Deviation RDW Coeff of Sam Plt Count MPV Immature Gran % (Auto) Neut % (Auto) Lymph % (Auto) Boyle % (Auto) Eos % (Auto) Baso % (Auto) Neut # (Auto) Lymph # (Auto) Boyle # (Auto) Eos # (Auto) Baso # (Auto) Immature Gran # (Auto) VBG pH VBG pCO2 VBG pO2 VBG HCO3 VBG O2 Saturation VBG Base Excess Sodium Potassium Chloride Carbon Dioxide Anion Gap BUN Creatinine Est Cr Clr Drug Dosing Est GFR ( Amer) Est GFR (Non-Af Amer) BUN/Creatinine Ratio Glucose POC Glucose 143 H 136 H 133 H Calcium Ammonia Vitamin B1 04/22/23 04/22/23 04/22/23 07:03 07:03 09:25 WBC 5.78 RBC 3.59 L Hgb 10.8 L Hct 32.3 L MCV 90.0 MCH 30.1 MCHC 33.4 RDW Std Deviation 44.6 RDW Coeff of Sam 13.5 Plt Count 183 MPV 10.2 Immature Gran % (Auto) 0.3 Neut % (Auto) 48.0 Lymph % (Auto) 34.6 Boyle % (Auto) 13.3 Eos % (Auto) 3.1 Baso % (Auto) 0.7 Neut # (Auto) 2.77 Lymph # (Auto) 2.00 Boyle # (Auto) 0.77 H Eos # (Auto) 0.18 Baso # (Auto) 0.04 Immature Gran # (Auto) 0.02 VBG pH VBG pCO2 VBG pO2 VBG HCO3 VBG O2 Saturation VBG Base Excess Sodium 140 Potassium 3.7 Chloride 110 H Carbon Dioxide 23 Anion Gap 7 BUN 11 Creatinine 1.12 Est Cr Clr Drug Dosing 47.1 Est GFR ( Amer) 54.1 Est GFR (Non-Af Amer) 46.7 BUN/Creatinine Ratio 9.8 L Glucose 136 H POC Glucose Calcium 8.9 Ammonia 30.0 Vitamin B1 04/22/23 04/22/23 04/22/23 09:25 09:25 11:17 WBC RBC Hgb Hct MCV MCH MCHC RDW Std Deviation RDW Coeff of Sam Plt Count MPV Immature Gran % (Auto) Neut % (Auto) Lymph % (Auto) Boyle % (Auto) Eos % (Auto) Baso % (Auto) Neut # (Auto) Lymph # (Auto) Boyle # (Auto) Eos # (Auto) Baso # (Auto) Immature Gran # (Auto) VBG pH 7.39 VBG pCO2 39 VBG pO2 44 VBG HCO3 24 VBG O2 Saturation 69.8 VBG Base Excess -1.2 Sodium Potassium Chloride Carbon Dioxide Anion Gap BUN Creatinine Est Cr Clr Drug Dosing Est GFR ( Amer) Est GFR (Non-Af Amer) BUN/Creatinine Ratio Glucose POC Glucose 209 H Calcium Ammonia Vitamin B1 Pending PG Care Time/CCT Total # of Minutes Spent Total Time Spent with Patient: Total time spent is greater than 50% in coordination of care (as documented) at patient's floor/unit and/or counseling patient: Coding Level of Care Code 74778 SUB INP/OBS CARE 3/50MIN Diagnoses AMS (altered mental status) R41.82 CHF (congestive heart failure) I50.9 Diabetes E11.9 GERD (gastroesophageal reflux disease) K21.9 Hypothyroidism E03.9 HTN (hypertension) I10 HLD (hyperlipidemia) E78.5 Abnormal brain MRI R90.89 LBBB (left bundle branch block) I44.7 Morbid obesity E66.01 Dementia F03.90 Cerebrovascular disease I67.9
[2023-04-22] MEDS: metFORMIN HCL 500 MG TAB PO SCH (17:39)
[2023-04-22] MEDS: PARoxetine HCL 20 MG TAB PO SCH (20:50)
[2023-04-22] MEDS: THIAMINE HCL 100 MG TAB PO SCH (20:50)
[2023-04-22] MEDS ORDERED: MIDAZOLAM HCL 1 MG/ML 2ML VIAL IV ONE (21:14)
[2023-04-22] MEDS ORDERED: LORazepam 2 MG/1 ML VIAL IV ONE (21:38)
[2023-04-22] MEDS ORDERED: GADOBUTROL 65ML VIAL IV ONE (22:45)
--- NOTE | 2023-04-23 00:38 | Magnetic Resonance Report ---
Exam(s): MRI HEAD W/WO Contrast IV Amt: 10.4cc gadavist EXAM: MR Head Without and With Intravenous Contrast CLINICAL HISTORY: Reason for exam: multiple episodes of unresponsiveness; prior CVAs. TECHNIQUE: Magnetic resonance images of the head/brain without and with intravenous contrast in multiple planes. CONTRAST: Patient received 10.4cc Gadavist of IV contrast COMPARISON: CT April 20, 2023. FINDINGS: Brain: Old inferior left cerebellar infarct. Old areas of ischemia in the right frontoparietal region and left occipital area.. No mass. No hemorrhage. No acute infarct. Ventricles: Unremarkable. No ventriculomegaly. Bones/joints: Unremarkable. Sinuses: Unremarkable as visualized. No acute sinusitis. Mastoid air cells: Unremarkable as visualized. No mastoid effusion. Orbits: Unremarkable as visualized. IMPRESSION: Multiple old infarcts. No acute intracranial findings. Electronically signed by: Yanick Lobato MD 04/23/23 00:37 AM
[2023-04-23] MEDS: LEVOTHYROXINE SODIUM 25 MCG TABLET PO SCH (05:30)
[2023-04-23 08:09] LABS: Estimated Average Glucose 148 mg/dl; Hemoglobin A1C 6.8 % (4.5-5.6)
[2023-04-23] MEDS: INSULIN ASPART PER UNIT CHARGE SC SCH ×4 (08:33→19:53)
[2023-04-23] MEDS: DONEPEZIL HCL 5 MG TAB PO SCH (08:41)
[2023-04-23] MEDS: PANTOprazole 40 MG TAB PO SCH (08:41)
[2023-04-23] MEDS: carvediloL 3.125 MG TAB PO SCH ×2 (08:41→16:43)
[2023-04-23] MEDS: FUROSEMIDE 20 MG TAB PO SCH (08:42)
[2023-04-23] MEDS: ROSUVASTATIN CALCIUM 20 MG TAB PO SCH (08:42)
[2023-04-23] MEDS: THIAMINE HCL 100 MG TAB PO SCH ×2 (08:42→19:29)
[2023-04-23] MEDS: POTASSIUM CHLORIDE CRTAB 20 MEQ TABCR PO SCH (08:42)
--- NOTE | 2023-04-23 09:57 | Electroencephalogram ---
EEG Procedure Note Date of Service April 23, 2023 Start / End Times Start Time: 9:17 AM End Time: 9:37 AM Referring Physician Romeo History Unresponsive episodes, history of multiple strokes Home Medication List Medication Instructions Recorded Confirmed Type carvedilol 3.125 mg tablet 3.125 mg PO BID 01/29/22 03/17/23 History paroxetine HCl 20 mg tablet 20 mg PO HS 01/29/22 03/17/23 History rosuvastatin 20 mg tablet 20 mg PO DAILY 01/29/22 03/17/23 History donepezil 5 mg tablet 5 mg PO HS #30 tabs 01/06/23 03/17/23 Rx ergocalciferol (vitamin D2) 1,250 1,250 mcg PO WK 01/14/23 03/17/23 History mcg (50,000 unit) capsule (Vitamin D2) metformin 1,000 mg tablet 1,000 mg PO QAM 01/14/23 03/17/23 History omeprazole 20 mg capsule,delayed 40 mg PO DAILY 01/14/23 03/17/23 History release furosemide 20 mg tablet 20 mg PO QAM #30 tabs 01/29/23 03/17/23 Rx potassium chloride 20 mEq 20 meq PO QAM #30 tabs 01/29/23 03/17/23 Rx tablet,extended release(part/cryst) cholecalciferol (vitamin D3) 25 25 mcg PO DAILY 03/17/23 03/17/23 History mcg (1,000 unit) capsule (Vitamin D3) levothyroxine 25 mcg tablet 25 mcg PO QAM 03/17/23 03/17/23 History (Synthroid) multivitamin with minerals-folic 1 tab PO QAM 03/17/23 03/17/23 History acid 200 mcg chewable tablet (Adult Multivitamin Gummies) ciprofloxacin HCl 250 mg tablet 250 mg PO Q12H #0 tabs 03/20/23 Rx magnesium oxide 400 mg (241.3 mg 400 mg PO BID #0 tabs 03/20/23 Rx magnesium) tablet acetaminophen 500 mg tablet 650 mg PO Q4H PRN Pain 04/16/23 04/16/23 History (Tylenol Extra Strength) Inpatient Medication List Carvedilol (Carvedilol 3.125 Mg Tab) 3.125 mg PO BIDM [facility] Stop: 05/21/23 16:59 Last Admin: 04/23/23 08:41 Dose: 3.125 mg Documented By: Admin: 04/22/23 17:39 Dose: 3.125 mg Documented By: Admin: 04/22/23 08:19 Dose: 3.125 mg Documented By: Admin: 04/21/23 16:25 Dose: 3.125 mg Documented By: MARIA ELENA Donepezil HCl (Donepezil Hcl 5 Mg Tab) 5 mg PO [facility] Stop: 05/22/23 08:59 Last Admin: 04/23/23 08:41 Dose: 5 mg Documented By: Admin: 04/22/23 08:19 Dose: 5 mg Documented By: DARSHANA Furosemide (Furosemide 20 Mg Tab) 20 mg PO [facility] Stop: 05/22/23 08:59 Last Admin: 04/23/23 08:42 Dose: 20 mg Documented By: Admin: 04/22/23 08:18 Dose: 20 mg Documented By: DARSHANA Acetaminophen (Ofirmev) 1,000 mg in 100 mls @ 400 mls/hr IV Q8H PRN PRN Reason: Pain or Fever Stop: 04/23/23 15:23 Last Infusion: 04/20/23 16:56 Dose: 0 mls/hr Documented By: Admin: 04/20/23 16:41 Dose: 400 mls/hr Documented By: VINCENT Insulin Aspart (Insulin Aspart Per Unit Charge) 0 units SC [facility] Stop: 05/21/23 16:29 Last Admin: 04/23/23 08:33 Dose: Not Given Documented By: Admin: 04/22/23 20:42 Dose: Not Given Documented By: YOON Co-signed By: CASSANDRA Admin: 04/22/23 17:41 Dose: 3 units Documented By: DARSHANA Co-signed By: EL Admin: 04/22/23 12:24 Dose: 5 units Documented By: DARSHANA Co-signed By: EL Admin: 04/22/23 10:14 Dose: Not Given Documented By: Admin: 04/21/23 21:40 Dose: Not Given Documented By: Admin: 04/21/23 16:25 Dose: Not Given Documented By: MARIA ELENA Levothyroxine Sodium (Levothyroxine Sodium 25 Mcg Tablet) [facility]: 05/22/23 06:29 Last Admin: 04/23/23 05:30 Dose: 25 mcg Documented By: Admin: 04/22/23 06:07 Dose: 25 mcg Documented By: MARGO Metformin HCl (Metformin Hcl 500 Mg Tab) 1,000 mg PO DAILYBD [facility] Stop: 05/21/23 15:29 Last Admin: 04/22/23 17:39 Dose: 1,000 mg Documented By: Admin: 04/21/23 16:25 Dose: 1,000 mg Documented By: MARIA ELENA Pantoprazole Sodium (Pantoprazole 40 Mg Tab) [facility] Stop: 05/22/23 08:59 Last Admin: 04/23/23 08:41 Dose: 40 mg Documented By: Admin: 04/22/23 08:18 Dose: 40 mg Documented By: DARSHANA Paroxetine HCl (Paroxetine Hcl 20 Mg Tab) 20 mg PO HS [facility] Stop: 05/21/23 20:59 Last Admin: 04/22/23 20:50 Dose: 20 mg Documented By: Admin: 04/21/23 21:47 Dose: 20 mg Documented By: MARGO Potassium Chloride (Potassium Chloride Crtab 20 Meq Tabcr) 20 meq [facility] Stop: 05/22/23 08:59 Last Admin: 04/23/23 08:42 Dose: 20 meq Documented By: Admin: 04/22/23 08:18 Dose: 20 meq Documented By: DARSHANA Rosuvastatin Calcium (Rosuvastatin Calcium 20 Mg Tab) 20 mg [facility] Stop: 05/22/23 08:59 Last Admin: 04/23/23 08:42 Dose: 20 mg Documented By: Admin: 04/22/23 08:18 Dose: 20 mg Documented By: DARSHANA Thiamine HCl (Thiamine Hcl 100 Mg Tab) 200 mg PO BID [facility] Stop: 05/22/23 20:59 Last Admin: 04/23/23 08:42 Dose: 200 mg Documented By: Admin: 04/22/23 20:50 Dose: 200 mg Documented By: YOON Discontinued Medications Carvedilol (Carvedilol 3.125 Mg Tab) 3.125 mg PO BID [facility] Stop: 05/19/23 08:59 Last Admin: 04/20/23 09:51 Dose: Not Given Documented By: Admin: 04/19/23 20:25 Dose: 3.125 mg Documented By: Admin: 04/19/23 09:29 Dose: 3.125 mg Documented By: ZARI Donepezil HCl (Donepezil Hcl 5 Mg Tab) 5 mg PO HS [facility] Stop: 05/19/23 20:59 Last Admin: 04/19/23 20:25 Dose: 5 mg Documented By: GRISELDA Furosemide (Furosemide 20 Mg Tab) 20 mg PO QAM [facility] Stop: 05/19/23 08:59 Last Admin: 04/20/23 09:51 Dose: Not Given Documented By: Admin: 04/19/23 09:30 Dose: 20 mg Documented By: ZARI Gadobutrol (Gadobutrol 65ml Vial) 10.4 ml IV ONCE ONE Stop: 04/22/23 22:46 Last Admin: 04/22/23 22:45 Dose: 10.4 ml Documented By: CMC Sodium Chloride (Nss 1000ml) 1,000 mls @ 999 mls/hr IV .Q1H1M ONE Stop: 04/18/23 19:24 Last Infusion: 04/18/23 23:49 Dose: 0 mls/hr Documented By: Admin: 04/18/23 18:56 Dose: 999 mls/hr Documented By: ARS Sodium Chloride (Nss 1000ml) 1,000 mls @ 999 mls/hr IV .Q1H1M ONE Stop: 04/18/23 20:59 Last Infusion: 04/18/23 23:50 Dose: 0 mls/hr Documented By: Admin: 04/18/23 20:30 Dose: 999 mls/hr Documented By: ARS Sodium Chloride (Nss 1000ml) 1,000 mls @ 50 mls/hr IV .Q20H [facility] Stop: 04/19/23 19:43 Last Infusion: 04/19/23 22:04 Dose: 0 mls/hr Documented By: Admin: 04/18/23 23:44 Dose: 50 mls/hr Documented By: RES Ceftriaxone Sodium 1,000 mg/ (Dextrose) 50 mls @ 100 mls/hr IV Q24H [facility]; Protocol Stop: 04/24/23 00:29 Last Infusion: 04/20/23 01:10 Dose: 0 mls/hr Documented By: Admin: 04/20/23 00:25 Dose: 100 mls/hr Documented By: Infusion: 04/19/23 01:15 Dose: 0 mls/hr Documented By: Admin: 04/19/23 00:44 Dose: 100 mls/hr Documented By: ROXANNE Potassium Chloride/Sodium Chloride (Normal Saline W/20 Meq Kcl) 20 meq in 1,000 mls @ 80 mls/hr IV .[id number] [facility]; Protocol Stop: 05/20/23 14:59 Last Infusion: 04/21/23 13:05 Dose: 0 mls/hr Documented By: MARIA ELENA Admin: 04/21/23 04:28 Dose: 80 mls/hr Documented By: Infusion: 04/21/23 02:57 Dose: 80 mls/hr Documented By: Admin: 04/20/23 14:27 Dose: 80 mls/hr Documented By: VINCENT Insulin Aspart (Insulin Aspart Per Unit Charge) 0 units SC ACHS [facility] Stop: 05/19/23 07:29 Last Admin: 04/20/23 13:20 Dose: Not Given Documented By: Admin: 04/20/23 09:50 Dose: Not Given Documented By: ZARI Co-signed By: CRAIG Admin: 04/19/23 20:36 Dose: 1 units Documented By: GRISELDA Co-signed By: SOLE Admin: 04/19/23 17:48 Dose: 1 units Documented By: ZARI Co-signed By: ABI Admin: 04/19/23 12:56 Dose: 3 units Documented By: ZARI Co-signed By: DEEPA Admin: 04/19/23 09:28 Dose: 1 units Documented By: ZARI Co-signed By: VIRI Insulin Aspart (Insulin Aspart Per Unit Charge) 0 units SC Q6 [facility] Stop: 05/20/23 17:59 Last Admin: 04/21/23 11:15 Dose: Not Given Documented By: MARIA ELENA Admin: 04/21/23 06:05 Dose: Not Given Documented By: Admin: 04/21/23 00:16 Dose: Not Given Documented By: Admin: 04/20/23 18:06 Dose: Not Given Documented By: DMParul Levothyroxine Sodium (Levothyroxine Sodium 25 Mcg Tablet) 25 mcg PO DAILYBB [facility] Stop: 05/19/23 06:29 Last Admin: 04/20/23 05:59 Dose: 25 mcg Documented By: Admin: 04/19/23 06:08 Dose: 25 mcg Documented By: ROXANNE Lorazepam (Lorazepam 2 Mg/1 Ml Vial) 0.5 mg IV NOW ONE Stop: 04/22/23 21:39 Last Admin: 04/22/23 22:05 Dose: 0.5 mg Documented By: YOON Midazolam HCl (Midazolam Hcl 1 Mg/Ml 2ml Vial) 1 mg IV NOW ONE Stop: 04/22/23 21:15 Last Admin: 04/22/23 22:19 Dose: Not Given Documented By: YOON Pantoprazole Sodium (Pantoprazole 40 Mg Tab) 40 mg PO DAILY [facility] Stop: 05/19/23 08:59 Last Admin: 04/20/23 09:51 Dose: Not Given Documented By: Admin: 04/19/23 09:29 Dose: 40 mg Documented By: ZARI Paroxetine HCl (Paroxetine Hcl 20 Mg Tab) 20 mg PO HS [facility] Stop: 05/19/23 20:59 Last Admin: 04/19/23 20:25 Dose: 20 mg Documented By: GRISELDA Potassium Chloride (Potassium Chloride Crtab 20 Meq Tabcr) 20 meq PO QAM [facility] Stop: 05/20/23 10:14 Last Admin: 04/20/23 11:26 Dose: Not Given Documented By: ZARI Rosuvastatin Calcium (Rosuvastatin Calcium 20 Mg Tab) 20 mg PO DAILY [facility] Stop: 05/19/23 08:59 Last Admin: 04/20/23 09:51 Dose: Not Given Documented By: Admin: 04/19/23 09:30 Dose: 20 mg Documented By: ZARI Description This is a 21 electrode EEG with a single channel dedicated to limited EKG. The electrodes were placed in accordance with the International 10-20 system. The background rhythm consists of a mix of 10 Hz alpha and faster beta frequencies. The beta rhythm is of slightly greater amplitude over the left frontal region. Photic stimulation is unremarkable. Hyperventilation is not performed. There is admixed generalized theta slowing throughout much of the study. There is a minimal degree of frontal delta activity. There are no abnormal paroxysmal discharges or epileptiform abnormalities. There are a few vertex waves in the latter part of the study. Interpretation Fairly normal-appearing awake, sleepy EEG although a mild encephalopathy may also be present given the degree of generalized slowing observed. No epileptiform abnormalities. [facility] EEG Procedure Codes Indication for Procedure (1) Acute metabolic encephalopathy: (2) Seizure-like activity: Neurology Neurology: 37153 EEG include record awake & sleepy
--- NOTE | 2023-04-23 10:01 | Hospitalist Progress Note ---
Date of Service April 23, 2023 Assessment & Plan (1) AMS (altered mental status): Plan: Patient presented with unknown encephalopathy, multiple chronic infarcts volume loss and encephalomalacia seen on CT MRI without acute events sees neurology for vascular dementia typically takes Aricept, concern for possible seizure with multiple brain trauma consider EEG metabolic etiologies otherwise ruled out initiated on thiamine while B1 level is pending EEG was completed neurology consult pending secondary risk prevention controlling hypertension and dyslipidemia which are chronic and stable, currently not on antiplatelet therapy (2) CHF (congestive heart failure): Plan: Chronic diastolic heart failure stable continue Coreg and Lasix (3) Diabetes: Plan: a1c 7.9% in 01/2023. cont novolog SSI. is also on metformin 1000mg daily. recheck a1c 6.8 (4) Hypothyroidism: Plan: chronic and stable, Continue Synthroid 25mcg daily. Recent TSH wnl. (5) Morbid obesity: Plan: BMI 40.8 Plan PT, OT long-term care placement at discharge Admission and Anticipated Discharge Date Admission Date: April 20, 2023 Subjective patient was seen in the company of her son he is not the POA he does have some concerns if we are not able to find a reversible cause of this will be the way this patient continues to have issues for the rest of her life. She currently is in a [facility] [facility] facility found that it was her brother, she is oriented x2 but then was redirected later in the hospital stay Physical Exam Physical Exam: patient is awake and conversant card exam is regular lungs are clear Results & Data Results & Data Vital Signs (Past 12 Hours) Vital Signs Temp Pulse Pulse Resp BP Pulse Ox O2 Del Method 04/23/23 08:16 97.5 F L 84 20 152/85 H 94 Room Air 04/22/23 23:00 76 04/22/23 21:59 76 04/23/23 02:03 97.3 F L 67 18 154/91 H 94 Room Air 04/22/23 23:34 97.5 F L 41 L 18 139/72 94 Room Air PG Care Time/CCT Total # of Minutes Spent Total Time Spent with Patient: Total time spent is greater than 50% in coordination of care (as documented) at patient's floor/unit and/or counseling patient: Coding Level of Care Code 54377 SUB INP/OBS CARE 2/35MIN Diagnoses AMS (altered mental status) R41.82 CHF (congestive heart failure) I50.9 Diabetes E11.9 Hypothyroidism E03.9 Morbid obesity E66.01
[2023-04-23] MEDS: metFORMIN HCL 500 MG TAB PO SCH (16:43)
[2023-04-23] MEDS: PARoxetine HCL 20 MG TAB PO SCH (19:29)
[2023-04-24] MEDS: LEVOTHYROXINE SODIUM 25 MCG TABLET PO SCH (05:54)
[2023-04-24] MEDS: DONEPEZIL HCL 5 MG TAB PO SCH (07:52)
[2023-04-24] MEDS: THIAMINE HCL 100 MG TAB PO SCH ×2 (07:52→21:29)
[2023-04-24] MEDS: ROSUVASTATIN CALCIUM 20 MG TAB PO SCH (07:52)
[2023-04-24] MEDS: INSULIN ASPART PER UNIT CHARGE SC SCH ×4 (07:52→21:28)
[2023-04-24] MEDS: FUROSEMIDE 20 MG TAB PO SCH (07:53)
[2023-04-24] MEDS: POTASSIUM CHLORIDE CRTAB 20 MEQ TABCR PO SCH (07:53)
[2023-04-24] MEDS: carvediloL 3.125 MG TAB PO SCH ×2 (07:53→17:00)
[2023-04-24] MEDS: PANTOprazole 40 MG TAB PO SCH (07:53)
--- NOTE | 2023-04-24 10:10 | Neurology Consultation ---
Date of Consultation April 24, 2023 Assessment & Plan (1) Seizure, late effect of stroke: (2) Dementia: Plan 77-year-old female with multiple moderate-sized chronic infarcts extending to the cortex, probable underlying vascular dementia, recent urinary tract infection, but with recurrent episodes of unresponsiveness potentially consistent with subclinical seizure activity. Recent EEG revealed encephalopathy, no epileptiform abnormalities, however. Given the observed distribution of patient's chronic infarcts, I do believe she is at increased risk for seizures in the context of her clinical presentation. Although her routine EEG was negative for epileptiform abnormalities, I would recommend empiric treatment with levetiracetam 500 mg twice daily. Would check a levetiracetam trough level as an outpatient. She may continue with donepezil 5 mg at bedtime for probable vascular dementia. Patient does have a history of allergic reaction to aspirin. In light of her history of multiple chronic infarcts, however, she should probably be on an antiplatelet medication such as clopidogrel. Further, the distribution of her infarcts could be consistent with a history of cardioembolism. Consider obtaining up-to-date cardiac monitoring as an outpatient. Patient may follow-up with myself or an MARVA in neurology clinic in 3 to 4 weeks after discharge. (I had previously evaluated this patient in clinic in January 2022 regarding dementia, associated gait apraxia, and a course postural/action tremor.) History of Present Illness Reason for Consultation: Concern for seizures, history of stroke Requesting Physician: Ade Attending Physician: Donnell Booker MD History of Present Illness The patient is a 77-year-old female who presented to the emergency department on April 18 with altered mental status in the context of urinary tract infection. She has a history of diabetes mellitus, hypertension, and hyperlipidemia. She was found at home with an episode of unresponsiveness. She had been treated with ciprofloxacin prior to her hospitalization although this medication was discontinued given concern for potential contribution to encephalopathy. She was treated with ceftriaxone. Follow-up urinalysis and culture was unremarkabl e. There has been increasing concern regarding underlying dementia and history of stroke. She had another episode of lethargy with minimal responsiveness on April 20. Repeat CT of the head was negative for acute findings. She had an EEG completed on April 23, 2023 that revealed a possible mild encephalopathy, no epileptiform abnormalities. A brain MRI completed April 22, 2023 revealed multiple chronic infarcts within the left cerebellum, right frontal parietal region, and left occipital area. I did review these images independently. These infarcts are moderately sized and extend to the cortex. She has had a normal sinus rhythm. She has chronic stable diastolic heart failure. Hemoglobin A1c from this past January was 7.9, was 6.8 yesterday. A lipid panel from this past February was reviewed. Triglycerides 159, cholesterol 128, LDL 47, VLDL 32, HDL 49. A vitamin B12 level from March 04 was 971. A recent TSH was 2.874. The patient denies any headache or focal weakness. She is mildly i nattentive and is an unreliable historian at this time. Allergies Allergy/AdvReac Type Severity Reaction Status Date / Time aspirin Allergy Severe Hives Verified 03/17/23 16:18 NSAIDS (Non-Steroidal Allergy Intermediate Hives Verified 03/17/23 16:18 Anti-Inflamma Penicillins Allergy Intermediate Hives Verified 03/17/23 16:18 fenofibrate Allergy Unknown ON PT MED Verified 03/17/23 16:18 LIST propoxyphene Allergy Unknown ON PT MED Verified 03/17/23 16:18 LIST Home Medications Medication Instructions Recorded Confirmed Type carvedilol 3.125 mg tablet 3.125 mg PO BID 01/29/22 03/17/23 History paroxetine HCl 20 mg tablet 20 mg PO HS 01/29/22 03/17/23 History rosuvastatin 20 mg tablet 20 mg PO DAILY 01/29/22 03/17/23 History donepezil 5 mg tablet 5 mg PO HS #30 tabs 01/06/23 03/17/23 Rx ergocalciferol (vitamin D2) 1,250 1,250 mcg PO WK 01/14/23 03/17/23 History mcg (50,000 unit) capsule (Vitamin D2) metformin 1,000 mg tablet 1,000 mg PO QAM 01/14/23 03/17/23 History omeprazole 20 mg capsule,delayed 40 mg PO DAILY 01/14/23 03/17/23 History release furosemide 20 mg tablet 20 mg PO QAM #30 tabs 01/29/23 03/17/23 Rx potassium chloride 20 mEq 20 meq PO QAM #30 tabs 01/29/23 03/17/23 Rx tablet,extended release(part/cryst) cholecalciferol (vitamin D3) 25 25 mcg PO DAILY 03/17/23 03/17/23 History mcg (1,000 unit) capsule (Vitamin D3) levothyroxine 25 mcg tablet 25 mcg PO QAM 03/17/23 03/17/23 History (Synthroid) multivitamin with minerals-folic 1 tab PO QAM 03/17/23 03/17/23 History acid 200 mcg chewable tablet (Adult Multivitamin Gummies) ciprofloxacin HCl 250 mg tablet 250 mg PO Q12H #0 tabs 03/20/23 Rx magnesium oxide 400 mg (241.3 mg 400 mg PO BID #0 tabs 03/20/23 Rx magnesium) tablet acetaminophen 500 mg tablet 650 mg PO Q4H PRN Pain 04/16/23 04/16/23 History (Tylenol Extra Strength) Patient History Medical History (Updated 04/24/23 @ 09:57 by John Culp MD) Bladder spasms CHF (congestive heart failure) Dementia Depression Diabetes GERD (gastroesophageal reflux disease) HLD (hyperlipidemia) HTN (hypertension) Hypothyroidism 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 No pertinent family history Strain of rotator cuff of right shoulder Surgical History History of back surgery No pertinent past surgical history S/P appendectomy S/P colonoscopy S/P hysterectomy Status post right knee replacement Social History Smoking Status: Never smoker Second Hand Exposure: No; Do You Dip or Chew Tobacco: No; Hx Alcohol Use: No Hx Substance Use: No Preferred Language: Vietnamese Communication Ability: Effective Visual Impairment: No Limitations Hearing Ability: Normal National Sales Consultant Required: No Beliefs That Will Affect Care: None marital status: / Current Living Situation: Alone Current Living Situation Comment: [facility] current occupational status: retired Feels Safe at Home: Yes Childhood Exposure to Second-Hand Smoke: No Diet: diabetic Dental Care, Regularly: No Physical Activity Frequency: Does not Exercise Seatbelt Use: always Sunscreen Use: No Assistive Devices: Cane, Denture - Upper, Denture - Lower, Hospital Bed and Walker Review of Systems Review of Systems: Unobtainable due to cognitive status Exam (Neuro) Constitutional: well developed and well nourished; no acute distress Eyes: normal visual garay by confrontation, PERRL and EOM intact bilaterally Cardiovascular: Vessels: no carotid bruit Neurologic: Oriented to:: Person; negative Place or Time Memory: negative Short Term Intact Attention: negative Span Intact or Concentration Intact Speech Fluency: negative Dysarthria or Dysfluency Fund of Knowledge: Vocabulary; negative Current Events Cranial Nerves: Normal II, III, IV, , V, VII, VIII, IX, X, XI and XII Motor Strength: Normal Lower Extremities and Normal Upper Extremities Motor Tone: Normal Lower Extremities and Normal Upper Extremities Muscle Bulk/Involuntary Movements: No Involuntary Movements; negative Muscle Atrophy Sensation: Light Touch Intact, Pain/Temperature Intact, Vibration Intact and Proprioception Intact Coordination: negative Dysdiadochokinesia, Finger-Nose Abnormal or Heel-Young Abnormal Deep Tendon Reflexes: Rt Triceps: 1+, Lt Triceps: 1+, Rt Biceps: 1+, Lt Biceps: 1+, Rt Brachioradialis: 1+, Lt Brachioradialis: 1+, Rt Patellar: 1+, Lt Patellar: 1+, Rt Ankle: 1+ and Lt Ankle: 1+ Special Tests: negative Babinski Present Details: Gait could not be safely tested Results & Data Vital Signs (Past 12 Hours) Vital Signs Temp Pulse Pulse Resp BP Pulse Ox O2 Del Method 04/24/23 08:00 75 04/24/23 07:54 36.8 C 81 20 118/76 97 Room Air 04/24/23 03:22 36.5 C 65 18 91/60 L 94 Room Air 04/23/23 22:00 76 04/23/23 22:43 36.7 C 69 18 116/69 94 Room Air Coding Level of Care Code 88598 INT INP/OBS CARE 3/75MIN Diagnoses Seizure, late effect of stroke I69.398; R56.9 Dementia F03.90
[2023-04-24] MEDS ORDERED: levETIRAcetam 500 MG TAB PO ONE (10:20)
[2023-04-24] MEDS ORDERED: CLOPIDOGREL BISULFATE 75 MG TAB PO ONE (10:20)
--- NOTE | 2023-04-24 14:58 | Palliative Care Consultation ---
Date of Consultation April 24, 2023 Assessment & Plan (1) Confusion: seems improved from prior days but she remains non decisional because her ability to engage in ACP discussion is limited in scope/depth of knowledge and comprehension (2) Palliative care by specialist: (3) Discussion about advance care planning held with family member: Pt is not decisional in a consistent manner but today she appears more awake and alert than in prior days reports. She can tell me that she knows she is in hospital and that she had passed out but unsure why or how. Says her dtr Gilda is "handles everything" so I will try to connect with her. When I asked pt if shed be willing to go to a half-way if needed she said yes and added if it would help me get back home. When I asked what if it didnt achieve that goal she said then Im not sure Id do it. She was unable to engage in discussion beyond this point. there was no famiyl present. (4) Dementia: vascular dementia, multi infarct (5) Seizure, late effect of stroke: (6) Cerebrovascular disease: (7) HTN (hypertension): (8) Diabetes: (9) CHF (congestive heart failure): (10) UTI (urinary tract infection), uncomplicated: Plan * Progressive dementia/vascular and multi infarcts. Hypoactive delirium vs encephalopathy. History of Present Illness Reason for Consultation: On 04/24/23 @ 14:38 Donnell Booker Wrote To Re May mid family exploring options Attending Physician: Donnell Booker MD History of Present Illness Deanna Mccormack is a 77yo female admitted after being found unresponsive. recent admission [facility] last month 03/17 - 03/20/23 for weakness/+UTI, Her urine culture from that admission ++ two species of Klebsiella pneumonia - s/p Ciprofloxacin and discharged in stable condition to [facility]. Per admitting note: "Patient had friends from her spiritism over in the morning - around approximately 10:00AM - no mention of illness or odd behavior. Patient's grandson saw her at 12:00 and she was unresponsive. The grandson called the patient's son and he came to the home - she remained unresponsive. Patient's son states that she was breathing normally and had a pulse of 60-70 but did not wake up even to deep sternal rub. EMS was called at 16:00. Family states that patient did not move with IV placement. BSG reported to be in the 140's. She was brought to [facility] ER." Pt found to have an unknown encephalopathy, multiple chronic infarcts volume loss and encephalomalacia seen on CT MRI without acute events. Neurology consulted 04/24/23: "multiple moderate-sized chronic infarcts extending to the cortex, probable underlying vascular dementia, recent urinary tract infection, but with recurrent episodes of unresponsiveness potentially consistent with subclinical seizure activity. Recent EEG revealed encep halopathy, no epileptiform abnormalities, however. Given the observed distribution of patient's chronic infarcts, I do believe she is at increased risk for seizures in the context of her clinical presentation. Although her routine EEG was negative for epileptiform abnormalities, I would recommend empiric treatment with levetiracetam 500 mg twice daily. Would check a levetiracetam trough level as an outpatient. She may continue with donepezil 5 mg at bedtime for probable vascular dementia. Patient does have a history of allergic reaction to aspirin. In light of her history of multiple chronic infarcts, however, she should probably be on an antiplatelet medication such as clopidogrel. Further, the distribution of her infarcts could be consistent with a history of cardioembolism. Consider obtaining up-to-date cardiac monitoring as an outpatient. Patient may follow-up with myself or an MARVA in neurology clinic in 3 to 4 weeks after discharge. (I had previously evaluated this patie nt in clinic in January 2022 regarding dementia, associated gait apraxia, and a course postural/action tremor.)" Allergies Allergy/AdvReac Type Severity Reaction Status Date / Time aspirin Allergy Severe Hives Verified 03/17/23 16:18 NSAIDS (Non-Steroidal Allergy Intermediate Hives Verified 03/17/23 16:18 Anti-Inflamma Penicillins Allergy Intermediate Hives Verified 03/17/23 16:18 fenofibrate Allergy Unknown ON PT MED Verified 03/17/23 16:18 LIST propoxyphene Allergy Unknown ON PT MED Verified 03/17/23 16:18 LIST Home Medications Medication Instructions Recorded Confirmed Type carvedilol 3.125 mg tablet 3.125 mg PO BID 01/29/22 03/17/23 History paroxetine HCl 20 mg tablet 20 mg PO HS 01/29/22 03/17/23 History rosuvastatin 20 mg tablet 20 mg PO DAILY 01/29/22 03/17/23 History donepezil 5 mg tablet 5 mg PO HS #30 tabs 01/06/23 03/17/23 Rx ergocalciferol (vitamin D2) 1,250 1,250 mcg PO WK 01/14/23 03/17/23 History mcg (50,000 unit) capsule (Vitamin D2) metformin 1,000 mg tablet 1,000 mg PO QAM 01/14/23 03/17/23 History omeprazole 20 mg capsule,delayed 40 mg PO DAILY 01/14/23 03/17/23 History release furosemide 20 mg tablet 20 mg PO QAM #30 tabs 01/29/23 03/17/23 Rx potassium chloride 20 mEq 20 meq PO QAM #30 tabs 01/29/23 03/17/23 Rx tablet,extended release(part/cryst) cholecalciferol (vitamin D3) 25 25 mcg PO DAILY 03/17/23 03/17/23 History mcg (1,000 unit) capsule (Vitamin D3) levothyroxine 25 mcg tablet 25 mcg PO QAM 03/17/23 03/17/23 History (Synthroid) multivitamin with minerals-folic 1 tab PO QAM 03/17/23 03/17/23 History acid 200 mcg chewable tablet (Adult Multivitamin Gummies) ciprofloxacin HCl 250 mg tablet 250 mg PO Q12H #0 tabs 03/20/23 Rx magnesium oxide 400 mg (241.3 mg 400 mg PO BID #0 tabs 03/20/23 Rx magnesium) tablet acetaminophen 500 mg tablet 650 mg PO Q4H PRN Pain 04/16/23 04/16/23 History (Tylenol Extra Strength) Patient History Medical History (Updated 04/24/23 @ 14:55 by Re May DNP) Bladder spasms CHF (congestive heart failure) Confusion Dementia Depression Diabetes Discussion about advance care planning held with family member GERD (gastroesophageal reflux disease) HLD (hyperlipidemia) HTN (hypertension) Hypothyroidism 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 No pertinent family history Palliative care by specialist Strain of rotator cuff of right shoulder Surgical History History of back surgery No pertinent past surgical history S/P appendectomy S/P colonoscopy S/P hysterectomy Status post right knee replacement Social History Smoking Status: Never smoker Second Hand Exposure: No; Do You Dip or Chew Tobacco: No; Hx Alcohol Use: No Hx Substance Use: No Preferred Language: Upper Sorbian Communication Ability: Effective Visual Impairment: No Limitations Hearing Ability: Normal Aluminum Boat Assembly Supervisor Required: No Beliefs That Will Affect Care: None marital status: / Current Living Situation: Alone Current Living Situation Comment: [facility] current occupational status: retired Feels Safe at Home: Yes Childhood Exposure to Second-Hand Smoke: No Diet: diabetic Dental Care, Regularly: No Physical Activity Frequency: Does not Exercise Seatbelt Use: always Sunscreen Use: No Assistive Devices: Cane, Denture - Upper, Denture - Lower, Hospital Bed and Walker Review of Systems Review of Systems: Unobtainable due to cognitive status Physical Exam 2 Constitutional: + altered mental status, comfortable and + overweight Eyes: PERRL, conjunctivae normal, anicteric sclerae ENMT: external ear and nose normal, oropharynx normal Neck: trachea midline, no thyromegaly Respiratory: normal respiratory effort and able to speak in complete sentences Cardiovascular: Rate/Rhythm: regular rate Gastrointestinal (Abdomen): normal bowel sounds, soft, nontender, no hepatosplenomegaly Musculoskeletal: gen weakness, BLE edema Skin: pale, warm Neurologic: alert to self and place. Results & Data Vital Signs (Past 12 Hours) Vital Signs Temp Pulse Pulse Resp BP Pulse Ox O2 Del Method 04/24/23 11:17 36.6 C 63 16 112/70 97 Room Air 04/24/23 08:00 75 04/24/23 07:54 36.8 C 81 20 118/76 97 Room Air 04/24/23 03:22 36.5 C 65 18 91/60 L 94 Room Air Laboratory Results data reviewed Diagnostic Findings data reviewed PG Care Time/CCT Total # of Minutes Spent Total Time Spent: 85 Total Time Spent with Patient: Total time spent is greater than 50% in coordination of care (as documented) at patient's floor/unit and/or counseling patient: [place] [address] IN/OBS CONSULT LVL 5,80M Patient Type New History Comprehensive Exam Comprehensive Medical Decision Making High Complexity Diagnoses Confusion R41.0 Palliative care by specialist Z51.5 Discussion about advance care planning held with family member Z71.0 Dementia F03.90 Seizure, late effect of stroke I69.398; R56.9 Cerebrovascular disease I67.9 HTN (hypertension) I10 Diabetes E11.9 CHF (congestive heart failure) I50.9 UTI (urinary tract infection), uncomplicated N39.0
[2023-04-24] MEDS: metFORMIN HCL 500 MG TAB PO SCH (15:21)
--- NOTE | 2023-04-24 17:27 | XCELERA ---
[id number]
--- NOTE | 2023-04-24 18:54 | Hospitalist Progress Note ---
Date of Service April 24, 2023 Assessment & Plan (1) AMS (altered mental status): Plan: Patient presented with unknown encephalopathy, multiple chronic infarcts volume loss and encephalomalacia seen on CT MRI without acute events sees neurology for vascular dementia typically takes Aricept, concern for possible seizure with multiple brain trauma consider EEG metabolic etiologies otherwise ruled out with exception for urine culture initiated on thiamine while B1 level is pending EEG was completed neurology consult recommends to start Keppra Echo completed now again without intracardiac embolic source secondary risk prevention controlling hypertension and dyslipidemia which are chronic and stable, currently not on antiplatelet therapy (2) CHF (congestive heart failure): Plan: Chronic diastolic heart failure stable continue Coreg and Lasix (3) Diabetes: Plan: a1c 7.9% in 01/2023. cont novolog SSI. is also on metformin 1000mg daily. recheck a1c 6.8 (4) Hypothyroidism: Plan: chronic and stable, Continue Synthroid 25mcg daily. Recent TSH wnl. (5) Morbid obesity: Plan: BMI 40.8 Plan PT, OT long-term care placement at discharge Admission and Anticipated Discharge Date Admission Date: April 20, 2023 Subjective pt is somewhat more alert, still confused at times, does recognize daughter but does not remember any details from yesterday Physical Exam Physical Exam: awake and alert x 2 cardiac is regular without murmur lungs are clear Results & Data Results & Data Vital Signs (Past 12 Hours) Vital Signs Temp Pulse Pulse Resp BP Pulse Ox O2 Del Method 04/24/23 16:00 74 04/24/23 15:26 97.9 F 67 18 124/79 95 Room Air 04/24/23 11:17 97.9 F 63 16 112/70 97 Room Air 04/24/23 08:00 75 04/24/23 07:54 98.2 F 81 20 118/76 97 Room Air PG Care Time/CCT Total # of Minutes Spent Total Time Spent with Patient: Total time spent is greater than 50% in coordination of care (as documented) at patient's floor/unit and/or counseling patient: Coding Level of Care Code 00946 SUB INP/OBS CARE 2/35MIN Diagnoses AMS (altered mental status) R41.82 CHF (congestive heart failure) I50.9 Diabetes E11.9 Hypothyroidism E03.9 Morbid obesity E66.01
[2023-04-24] MEDS: levETIRAcetam 500 MG TAB PO SCH (21:30)
[2023-04-24] MEDS: PARoxetine HCL 20 MG TAB PO SCH (21:30)
[2023-04-25] MEDS: LEVOTHYROXINE SODIUM 25 MCG TABLET PO SCH (05:36)
[2023-04-25] MEDS: INSULIN ASPART PER UNIT CHARGE SC SCH ×4 (08:03→20:10)
[2023-04-25] MEDS: levETIRAcetam 500 MG TAB PO SCH ×2 (08:04→20:09)
[2023-04-25] MEDS: FUROSEMIDE 20 MG TAB PO SCH (08:04)
[2023-04-25] MEDS: THIAMINE HCL 100 MG TAB PO SCH ×2 (08:04→20:09)
[2023-04-25] MEDS: POTASSIUM CHLORIDE CRTAB 20 MEQ TABCR PO SCH (08:04)
[2023-04-25] MEDS: PANTOprazole 40 MG TAB PO SCH (08:04)
[2023-04-25] MEDS: carvediloL 3.125 MG TAB PO SCH ×2 (08:04→17:08)
[2023-04-25] MEDS: ROSUVASTATIN CALCIUM 20 MG TAB PO SCH (08:05)
[2023-04-25] MEDS: DONEPEZIL HCL 5 MG TAB PO SCH (08:05)
[2023-04-25] MEDS: CLOPIDOGREL BISULFATE 75 MG TAB PO SCH (10:35)
[2023-04-25] MEDS: metFORMIN HCL 500 MG TAB PO SCH (17:07)
--- NOTE | 2023-04-25 18:33 | Hospitalist Progress Note ---
Date of Service April 25, 2023 Assessment & Plan (1) AMS (altered mental status): Plan: Patient presented with unknown encephalopathy, multiple chronic infarcts volume loss and encephalomalacia seen on CT MRI without acute events sees neurology for vascular dementia typically takes Aricept, concern for possible seizure with multiple brain trauma consider EEG metabolic etiologies otherwise ruled out with exception for urine culture initiated on thiamine while B1 level is pending EEG was completed neurology consult recommends to start Keppra Echo completed now again without intracardiac embolic source Possible contributing factors including subclinical seizures based upon EEG instituted on Keppra therapy by neurology Patient is 80,000 colonies of Enterococcus urinary bacteria present on presentation will treat with 3 days of doxycycline in case there is a metabolic encephalopathy that is also contributing secondary risk prevention controlling hypertension and dyslipidemia which are chronic and stable, currently not on antiplatelet therapy (2) CHF (congestive heart failure): Plan: Chronic diastolic heart failure stable continue Coreg and Lasix (3) Diabetes: Plan: a1c 7.9% in 01/2023. cont novolog SSI. is also on metformin 1000mg daily. recheck a1c 6.8 (4) Hypothyroidism: Plan: chronic and stable, Continue Synthroid 25mcg daily. Recent TSH wnl. (5) Morbid obesity: Plan: BMI 40.8 Plan PT, OT long-term care placement at discharge Admission and Anticipated Discharge Date Admission Date: April 20, 2023 Subjective pt is somewhat more alert, still confused at times, patient seems despondent about the consideration of returning to her intermediate environment Physical Exam Physical Exam: awake and alert x 2 cardiac is regular without murmur lungs are clear Results & Data Results & Data Vital Signs (Past 12 Hours) Vital Signs Temp Pulse Pulse Resp BP Pulse Ox O2 Del Method 04/25/23 16:00 82 04/25/23 15:32 97.7 F 71 16 102/66 96 Room Air 04/25/23 11:28 97.9 F 87 18 112/73 96 Room Air 04/25/23 08:00 69 04/25/23 07:21 97.5 F L 72 18 127/69 92 Room Air Laboratory Results Reviewed urine culture 80,000 colonies of Enterococcus we will treat with short- term doxycycline given penicillin allergy to rule out the Enterococcus as part of metabolic encephalopathy present on admission PG Care Time/CCT Total # of Minutes Spent Total Time Spent with Patient: Total time spent is greater than 50% in coordination of care (as documented) at patient's floor/unit and/or counseling patient: Coding Level of Care Code 82066 SUB INP/OBS CARE 2MIN Diagnoses AMS (altered mental status) R41.82 CHF (congestive heart failure) I50.9 Diabetes E11.9 Hypothyroidism E03.9 Morbid obesity E66.01
[2023-04-25] MEDS: DOXYCYCLINE HYCLATE 100 MG CAP PO SCH (20:08)
[2023-04-25] MEDS: PARoxetine HCL 20 MG TAB PO SCH (20:09)
[2023-04-26] MEDS: LEVOTHYROXINE SODIUM 25 MCG TABLET PO SCH (05:49)
--- NOTE | 2023-04-26 07:52 | Hospitalist Progress Note ---
Date of Service April 26, 2023 Assessment & Plan (1) AMS (altered mental status): Plan: Patient presented with unknown encephalopathy, multiple chronic infarcts volume loss and encephalomalacia seen on CT MRI without acute events sees neurology for vascular dementia typically takes Aricept, concern for possible seizure with multiple brain trauma consider EEG metabolic etiologies otherwise ruled out with exception for urine culture Wernicke encephalopathy initiated on thiamine while B1 level is low will continue to augment could be some explanation of mental status decline EEG was completed neurology consult recommends to start Keppra Echo completed now again without intracardiac embolic source Possible contributing factors including subclinical seizures based upon EEG instituted on Keppra therapy by neurology Patient is 80,000 colonies of Enterococcus urinary bacteria present on presentation will treat with 3 days of doxycycline in case there is a metabolic encephalopathy that is also contributing secondary risk prevention controlling hypertension and dyslipidemia which are chronic and stable, currently not on antiplatelet therapy (2) CHF (congestive heart failure): Plan: Chronic diastolic heart failure stable continue Coreg and Lasix (3) Diabetes: Plan: a1c 7.9% in 01/2023. cont novolog SSI. is also on metformin 1000mg daily. recheck a1c 6.8 (4) Hypothyroidism: Plan: chronic and stable, Continue Synthroid 25mcg daily. Recent TSH wnl. (5) Morbid obesity: Plan: BMI 40.8, affects movement and rehab potential Plan PT, OT long-term care placement at discharge Admission and Anticipated Discharge Date Admission Date: April 20, 2023 Subjective patient seems to be more coherent every day she is oriented to place today not to time she still not excited about being considered to go to a [place] [facility] however her functional status is still in question Physical Exam Physical Exam: awake and alert x 2 cardiac is regular without murmur lungs are clear Results & Data Results & Data Vital Signs (Past 12 Hours) Vital Signs Temp Pulse Pulse Resp BP Pulse Ox O2 Del Method 04/26/23 07:28 70 04/26/23 02:56 98.2 F 71 18 105/67 91 Room Air 04/25/23 22:25 86 04/25/23 20:00 Room Air 04/25/23 22:53 98.1 F 74 18 110/70 91 Room Air PG Care Time/CCT Total # of Minutes Spent Total Time Spent with Patient: Total time spent is greater than 50% in coordination of care (as documented) at patient's floor/unit and/or counseling patient: Coding Level of Care Code 06749 SUB INP/OBS CARE 235MIN Diagnoses AMS (altered mental status) R41.82 CHF (congestive heart failure) I50.9 Diabetes E11.9 Hypothyroidism E03.9 Morbid obesity E66.01
[2023-04-26] MEDS: THIAMINE HCL 100 MG TAB PO SCH (08:30)
[2023-04-26] MEDS: carvediloL 3.125 MG TAB PO SCH ×2 (08:30→16:27)
[2023-04-26] MEDS: DONEPEZIL HCL 5 MG TAB PO SCH (08:30)
[2023-04-26] MEDS: FUROSEMIDE 20 MG TAB PO SCH (08:30)
[2023-04-26] MEDS: levETIRAcetam 500 MG TAB PO SCH ×2 (08:30→20:06)
[2023-04-26] MEDS: PANTOprazole 40 MG TAB PO SCH (08:31)
[2023-04-26] MEDS: CLOPIDOGREL BISULFATE 75 MG TAB PO SCH (08:31)
[2023-04-26] MEDS: ROSUVASTATIN CALCIUM 20 MG TAB PO SCH (08:31)
[2023-04-26] MEDS: DOXYCYCLINE HYCLATE 100 MG CAP PO SCH ×2 (08:31→20:05)
[2023-04-26] MEDS: POTASSIUM CHLORIDE CRTAB 20 MEQ TABCR PO SCH (08:40)
[2023-04-26] MEDS: INSULIN ASPART PER UNIT CHARGE SC SCH ×4 (08:41→21:46)
[2023-04-26] MEDS: metFORMIN HCL 500 MG TAB PO SCH (16:26)
[2023-04-26] MEDS: PARoxetine HCL 20 MG TAB PO SCH (20:06)
[2023-04-27] MEDS: LEVOTHYROXINE SODIUM 25 MCG TABLET PO SCH (05:46)
[2023-04-27] MEDS: INSULIN ASPART PER UNIT CHARGE SC SCH ×4 (09:30→21:41)
[2023-04-27] MEDS: carvediloL 3.125 MG TAB PO SCH ×2 (09:32→16:59)
[2023-04-27] MEDS: DOXYCYCLINE HYCLATE 100 MG CAP PO SCH ×2 (09:32→20:22)
[2023-04-27] MEDS: CLOPIDOGREL BISULFATE 75 MG TAB PO SCH (09:32)
[2023-04-27] MEDS: PANTOprazole 40 MG TAB PO SCH (09:32)
[2023-04-27] MEDS: FUROSEMIDE 20 MG TAB PO SCH (09:32)
[2023-04-27] MEDS: DONEPEZIL HCL 5 MG TAB PO SCH (09:32)
[2023-04-27] MEDS: levETIRAcetam 500 MG TAB PO SCH ×2 (09:32→20:22)
[2023-04-27] MEDS: ROSUVASTATIN CALCIUM 20 MG TAB PO SCH (09:32)
[2023-04-27] MEDS: POTASSIUM CHLORIDE CRTAB 20 MEQ TABCR PO SCH (09:33)
[2023-04-27] MEDS: THIAMINE HCL 100 MG TAB PO SCH (09:33)
--- NOTE | 2023-04-27 14:02 | Hospitalist Progress Note ---
Date of Service April 27, 2023 Assessment & Plan (1) AMS (altered mental status): Plan: Patient presented with unknown encephalopathy, multiple chronic infarcts volume loss and encephalomalacia seen on CT MRI without acute events sees neurology for vascular dementia typically takes Aricept, concern for possible seizure with multiple brain trauma consider EEG metabolic etiologies otherwise ruled out with exception for urine culture Wernicke encephalopathy initiated on thiamine while B1 level is low will continue to augment could be some explanation of mental status decline EEG was completed neurology consult recommends to start Keppra Echo completed now again without intracardiac embolic source Possible contributing factors including subclinical seizures based upon EEG instituted on Keppra therapy by neurology Patient is 80,000 colonies of Enterococcus urinary bacteria present on presentation will treat with 3 days of doxycycline in case there is a metabolic encephalopathy that is also contributing secondary risk prevention controlling hypertension and dyslipidemia which are chronic and stable, currently not on antiplatelet therapy (2) CHF (congestive heart failure): Plan: Chronic diastolic heart failure stable continue Coreg and Lasix (3) Diabetes: Plan: a1c 7.9% in 01/2023. cont novolog SSI. is also on metformin 1000mg daily. recheck a1c 6.8 (4) Hypothyroidism: Plan: chronic and stable, Continue Synthroid 25mcg daily. Recent TSH wnl. (5) Morbid obesity: Plan: BMI 40.8, affects movement and rehab potential Plan long-term care placement at discharge discussed with family ongoing Admission and Anticipated Discharge Date Admission Date: April 20, 2023 Subjective patient continues to be more coherent every day she is oriented to place today family was updated on improvement Physical Exam Physical Exam: awake and alert x 3 cardiac is regular without murmur lungs are clear Results & Data Results & Data Vital Signs (Past 12 Hours) Vital Signs Temp Pulse Pulse Resp BP Pulse Ox O2 Del Method 04/27/23 10:00 64 04/27/23 11:27 98.1 F 71 16 92/61 L 92 Room Air 04/27/23 07:36 97.7 F 93 H 16 109/65 96 Room Air 04/27/23 03:10 98.4 F 69 18 103/67 90 Room Air PG Care Time/CCT Total # of Minutes Spent Total Time Spent with Patient: Total time spent is greater than 50% in coordination of care (as documented) at patient's floor/unit and/or counseling patient: Coding Level of Care Code 31463 SUB INP/OBS CARE MIN Diagnoses AMS (altered mental status) R41.82 CHF (congestive heart failure) I50.9 Diabetes E11.9 Hypothyroidism E03.9 Morbid obesity E66.01
[2023-04-27] MEDS: metFORMIN HCL 500 MG TAB PO SCH (16:57)
[2023-04-27] MEDS: PARoxetine HCL 20 MG TAB PO SCH (20:22)
[2023-04-28] MEDS: LEVOTHYROXINE SODIUM 25 MCG TABLET PO SCH (05:33)
[2023-04-28 07:23] LABS: BUN Creatinine Ratio 18.9 (10-20); Calcium 9.6 mg/dl (8.6-10.3); Creatinine Clr Calc Pharmacy 46.1 ml/min; Est GFR (African American) 54.7 ml/min; Est GFR (Non-African American) 47.2 ml/min; Potassium 3.6 mmol/L (3.5-5.1)
[2023-04-28] MEDS: carvediloL 3.125 MG TAB PO SCH (08:24)
[2023-04-28] MEDS: DONEPEZIL HCL 5 MG TAB PO SCH (08:24)
[2023-04-28] MEDS: ROSUVASTATIN CALCIUM 20 MG TAB PO SCH (08:24)
[2023-04-28] MEDS: FUROSEMIDE 20 MG TAB PO SCH (08:24)
[2023-04-28] MEDS: CLOPIDOGREL BISULFATE 75 MG TAB PO SCH (08:24)
[2023-04-28] MEDS: THIAMINE HCL 100 MG TAB PO SCH (08:24)
[2023-04-28] MEDS: levETIRAcetam 500 MG TAB PO SCH (08:24)
[2023-04-28] MEDS: DOXYCYCLINE HYCLATE 100 MG CAP PO SCH (08:24)
[2023-04-28] MEDS: PANTOprazole 40 MG TAB PO SCH (08:25)
[2023-04-28] MEDS: INSULIN ASPART PER UNIT CHARGE SC SCH ×2 (08:27→12:31)
[2023-04-28] MEDS: POTASSIUM CHLORIDE CRTAB 20 MEQ TABCR PO SCH (08:27)
[2023-04-28] MEDS: metFORMIN HCL 500 MG TAB PO SCH (15:44)
--- NOTE | 2023-04-28 17:21 | Discharge Summary ---
Date of Service April 28, 2023 Admission HPI Per Admitting Provider Deanna Mccormack is a 77yo female with history of DM, HTN, HLP, Hypothyroidism and GERD presenting from home with episode of unresponsiveness. Patient was recently admitted to [facility] from 03/17/23 - 03/20/23 with generalized weakness and UTI. Her urine culture from that admission was POSITIVE for two species of Klebsiella pneumonia. She was treated with Ciprofloxacin and discharged in stable condition to [facility]. Patient had friends from her anglic[place] over in the morning - around approximately 10:00AM - no mention of illness or odd behavior. Patient's grandson saw her at 12:00 and she was unresponsive. The grandson called the patient's son and he came to the home - she remained unresponsive. Patient's son states that she was breathing normally and had a pulse of 60-70 but did not wake up even to deep sternal rub. EMS was called at 16:00. Family states that patient did not move with IV placement. BSG reported to be in the 140's. She was brought to [facility] ER. In the ER she is afebrile, HD stable. IVF given Patient does answer some questions, yes or no and is able to follow some commands but is very encephalopathic. ER Course: NSS x 2L Principal Diagnosis encephalopathy improved possible seizure associated mid and enterococcal uti, treated with doxycycline-> cipro at discharge Discharge Exam awake and alert, oriented x3 did have low grade temp at dc, changed antibiotics at discharge Discharge Data Allergies Allergy/AdvReac Type Severity Reaction Status Date / Time aspirin Allergy Severe Hives Verified 03/17/23 16:18 NSAIDS (Non-Steroidal Allergy Intermediate Hives Verified 03/17/23 16:18 Anti-Inflamma Penicillins Allergy Intermediate Hives Verified 03/17/23 16:18 fenofibrate Allergy Unknown ON PT MED Verified 03/17/23 16:18 LIST propoxyphene Allergy Unknown ON PT MED Verified 03/17/23 16:18 LIST Consultations 04/18/23 20:47 ED Decision to Admit Stat 04/23/23 12:17 Consult Neurology Routine 04/24/23 14:36 Consult Palliative Care Routine Ordered Studies 04/18/23 17:49 CT head/brain wo con Stat 04/20/23 11:49 CT head/brain wo con Stat 04/22/23 13:51 MR brain wo/w con Routine Hospital Course (1) AMS (altered mental status): Patient presented with unknown encephalopathy, multiple chronic infarcts volume loss and encephalomalacia seen on CT MRI without acute events sees neurology for vascular dementia typically takes Aricept, concern for possible seizure with multiple brain trauma consider EEG metabolic etiologies otherwise ruled out with exception for urine culture Wernicke encephalopathy initiated on thiamine while B1 level is low will continue to augment could be some explanation of mental status decline EEG was completed neurology consult recommends to start Keppra Echo completed now again without intracardiac embolic source Possible contributing factors including subclinical seizures based upon EEG instituted on Keppra therapy by neurology Patient is 80,000 colonies of Enterococcus urinary bacteria present on presentation did treat with 3 days of doxycycline in case there is a metabolic encephalopathy that is also contributing, with low grade temp at d/c add on a week of cipro 250 bid secondary risk prevention controlling hypertension and dyslipidemia which are chronic and stable, currently not on antiplatelet therapy (2) CHF (congestive heart failure): Chronic diastolic heart failure stable continue Coreg and Lasix (3) Diabetes: a1c 7.9% in 01/2023. metformin 1000mg daily. recheck a1c 6.8 (4) Hypothyroidism: chronic and stable, Continue Synthroid 25mcg daily. Recent TSH wnl. 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 Activity: Resume your previous activity Non-emergency contact: Primary Care Provider and Neurologist Call non-emergency contact if: your symptoms worsen Follow-up/Referrals: Bonifacio Ibanez DO [Primary Care Provider] - Diet: Regular Addtl Attending Provider Instructions: you have been started on a new medication for seizures, continue Keppra 500mg twice a day complete your antibiotic for your urine infection Pending Studies at Discharge: No Stand-Alone Forms: My [facility] Skilled Items Patient informed of condition?: Yes DNR: No Discharge Level of Care: Skilled Communicable Disease: No Discharge Prognosis: Stable Lines: None Urinary Catheter: No Medications and DC Order Prescriptions: New levetiracetam [Keppra] 500 mg Tablet 500 mg PO BID Qty: 60 3RF clopidogrel 75 mg Tablet 75 mg PO QAM Qty: 30 0RF thiamine mononitrate (vit B1) 100 mg tablet 100 mg PO DAILY Qty: 30 0RF ciprofloxacin HCl [Cipro] 250 mg tablet 250 mg PO BID Qty: 14 0RF Continued carvedilol 3.125 mg tablet 3.125 mg PO BID Rx Instructions: must administer with a meal/food paroxetine HCl 20 mg tablet 20 mg PO HS rosuvastatin 20 mg tablet 20 mg PO DAILY acetaminophen [Tylenol Extra Strength] 500 mg tablet 650 mg PO Q4H PRN (Reason: Pain) metformin 1,000 mg tablet 1,000 mg PO QAM omeprazole 20 mg capsule,delayed release(DR/EC) 40 mg PO DAILY potassium chloride 20 mEq tablet,ER particles/crystals 20 meq PO QAM Qty: 30 0RF furosemide 20 mg tablet 20 mg PO QAM Qty: 30 2RF Rx Instructions: for fluid/edema of legs; note lower dose. cholecalciferol (vitamin D3) [Vitamin D3] 25 mcg (1,000 unit) Capsule 25 mcg PO DAILY Adult Multivitamin Gummies 200 mcg Tablet,Chewable 1 tab PO QAM levothyroxine [Synthroid] 25 mcg tablet 25 mcg PO QAM Rx Instructions: for underactive thyroid gland magnesium oxide 400 mg (241.3 mg magnesium) Tablet 400 mg PO BID Qty: 0 0RF Changed donepezil 5 mg tablet 5 mg PO QAM Qty: 30 5RF Discontinued ergocalciferol (vitamin D2) [Vitamin D2] 1,250 mcg (50,000 unit) capsule 1,250 mcg PO WK ciprofloxacin HCl 250 mg Tablet 250 mg PO Q12H Qty: 0 0RF Discharge Orders: Discharge Order (Routine); Ordered 04/28/23 Ordered By: Donnell Mace/Other Patient Handouts: Managing Type 2 Diabetes Admission Data Admit Date/Time: 04/20/23 11:49 Attending Provider: Donnell Booker Admit Provider: Estela Tyson Primary Care Provider: Bonifacio Ibanez Other Providers: Estela Tyson ; Jorge A Lawrence Brian A. ; Re May Other Interventions: Discharge Summary Assessment (RN) Last Done: 04/28/23 15:52 Coding Level of Care Code 05101 INP/OBS DISCH >30 MIN Diagnoses AMS (altered mental status) R41.82 CHF (congestive heart failure) I50.9 Diabetes E11.9 Hypothyroidism E03.9 Morbid obesity E66.01
== END 2023-04-28 16:40 | DRG 56 ==
LOC: ED 17:26 → 3W 17:26 → SUATTDRO 21:13 → 3W 23:03 → SUATTDRO 04-20 11:49 → 2S 04-20 12:47 → 2W 04-22 18:55

== ENCOUNTER 2024-02-05 11:34 | Observation (INO) ==
--- NOTE | 2024-02-05 11:50 | Emergency Department Note ---
Impression & Plan UTI (urinary tract infection), Encephalopathy ED Provider Note NAME: ANTONIO BILL AGE: 78 SEX: F : 1945 ARRIVES VIA: Ambulance INFORMANT: Patient, ED PROVIDER(S): Fernanda Murrieta MD CHIEF COMPLAINT: Altered mental status HPI: This is an 78-year-old female presenting for altered mental status. 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 EMS states that upon arrival she was only responsive to painful stimuli including sternal rub. There was concern that she may have had ventricular fibrillation en route. 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 No fevers, chills. She reports no current pain. She has not oriented to where she is, not oriented to time. Patient did have urinary incontinence during transport . ROS: See above HPI for pertinent positives & negatives. A total of 10 systems reviewed and were otherwise negative. PHYSICAL EXAMINATION: General: Intermittently interactive, resting comfortably in no acute distress Head: Normocephalic and atraumatic Eyes: Normal inspection, extraocular muscles intact Ear, nose, throat: Normal external exam Neck: Normal range of motion Respiratory: lungs clear to auscultation bilaterally Cardiovascular: Regular rate/rhythm, no murmur GI: soft, nontender, no guarding or rebound Extremities: nontender, moves all extremities Neuro: Alert oriented x 1, was all extremities, follows commands, no motor drift Skin: Warm, dry, and intact MEDICAL DECISION MAKING: This is a 78-year-old female presenting for altered mental status. Consider seizure, UTI, stroke, sepsis. -Blood was reviewed showing no leukocytosis, mild anemia otherwise no significant electro disturbance. Anion gap of 13. Lactic acid 2.4. Urinalysis reveals trace leuk esterase with 6-10 WBC. Surprisingly no significant etiology noted on current workup aside from this possible mild UTI. With her age, this could be related to recurrent metabolic encephalopathy. -CT of the head reveals no acute intracranial process. -Chest Xray independently interpreted by me showing cardiomegaly, no pneumothorax, focal opacity, or pleural effusions. -Patient is persistently confused at this time. Will admit for further workup at this time. Differential diagnosis: See above ER treatment provided: See below Diagnostics interpreted by me: ECG: ECG independently interpreted by me with [normal sinus rhythm with first- degree AV block, rate of 70, left bundle branch block, normal QTc, no ST segment elevations consistent with STEMI criteria Cardiac Monitoring: An order was placed for continuous cardiac monitoring. The monitor shows a rate of 72 with sinus rhythm. Laboratory studies: As stated above and show below. Imaging studies: See below. 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 Dementia Surgical History S/P colonoscopy S/P hysterectomy S/P appendectomy History of back surgery Status post right knee replacement No pertinent past surgical history Social History Smoking Status: Never smoker Second Hand Exposure: No; Do You Dip or Chew Tobacco: No; Hx Alcohol Use: No Hx Substance Use: No Preferred Language: Citizen Of [place] Communication Ability: Effective Visual Impairment: No Limitations Hearing Ability: Normal 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 Beliefs That Will Affect Care: None marital status: / Current Living Situation: Longterm Current Living Situation Comment: At [facility] facility current occupational status: retired Other Information That Helps Us Care for You: No Feels Safe at Home: Yes Safety Concerns: Feels Safe At This Time Childhood Exposure to Second-Hand Smoke: No Diet: diabetic Dental Care, Regularly: No Physical Activity Frequency: Does not Exercise Seatbelt Use: always Sunscreen Use: No Assistive Devices: Walker Allergies Allergies Allergy/AdvReac Type Severity Reaction Status Date / Time aspirin Allergy Severe Hives Verified 02/05/24 14:42 NSAIDS (Non-Steroidal Allergy Intermediate Hives Verified 08/20/23 11:15 Anti-Inflamma Penicillins Allergy Intermediate Hives Verified 02/05/24 14:42 fenofibrate Allergy Unknown ON PT MED Verified 08/20/23 11:15 LIST naproxen Allergy Unknown Unknown - Unverified 02/05/24 14:42 On Med List from [facility] propoxyphene Allergy Unknown ON PT MED Verified 08/20/23 11:15 LIST vancomycin Allergy Redness of Verified 08/20/23 11:32 Skin Home Meds Home Medications Medication Instructions Recorded Confirmed carvedilol 3.125 mg tablet 3.125 mg PO BID 01/29/22 02/05/24 paroxetine HCl 20 mg tablet 20 mg PO HS 01/29/22 02/05/24 rosuvastatin 20 mg tablet 20 mg PO HS 01/29/22 02/05/24 metformin 1,000 mg tablet 1,000 mg PO QAM 01/14/23 02/05/24 cholecalciferol (vitamin D3) 25 25 mcg PO DAILY 03/17/23 02/05/24 mcg (1,000 unit) capsule (Vitamin D3) levothyroxine 25 mcg tablet 25 mcg PO QAM 03/17/23 02/05/24 (Synthroid) multivitamin with minerals-folic 1 tab PO QAM 03/17/23 02/05/24 acid 200 mcg chewable tablet (Adult Multivitamin Gummies) furosemide 20 mg tablet 40 mg PO QAM 08/18/23 02/05/24 acetaminophen 325 mg tablet 650 mg PO Q4H PRN Pain/Fever 02/05/24 02/05/24 dextromethorphan-guaifenesin ER 60 1 tab PO BID PRN Cough/Congestion 02/05/24 02/05/24 mg-1,200 mg tab,extend release,12hr (Mucinex DM) diclofenac sodium 1 % topical gel 2 g topical QID PRN Pain 02/05/24 02/05/24 donepezil 5 mg tablet 5 mg PO HS 02/05/24 02/05/24 emollient combination no.92 1 applic topical BID Dry skin - 02/05/24 02/05/24 (Lubriderm Daily Moisture lotion) Legs hydroxyzine HCl 25 mg tablet 25 mg PO TID PRN Itching 02/05/24 02/05/24 insulin glargine 100 unit/mL (3 10 unit subcut HS 02/05/24 02/05/24 mL) subcutaneous pen (Lantus Solostar U-100 Insulin) loperamide 2 mg capsule 4 mg PO DAILY PRN Diarrhea 02/05/24 02/05/24 magnesium hydroxide 400 mg/5 mL 2,400 mg PO UD PRN Constipation 02/05/24 02/05/24 oral suspension (Milk of Magnesia) omeprazole 40 mg capsule,delayed 40 mg PO QAM 02/05/24 02/05/24 release potassium chloride 20 mEq 20 meq PO DAILY 02/05/24 02/05/24 tablet,extended release(part/cryst) thiamine mononitrate (vit B1) 100 100 mg PO QAM 02/05/24 02/05/24 mg tablet Previous Rx's Medication Instructions Recorded magnesium oxide 400 mg (241.3 mg 400 mg PO BID #0 tabs 03/20/23 magnesium) tablet clopidogrel 75 mg tablet 75 mg PO QAM #30 tabs 04/28/23 Results & Data (ED) Laboratory Data 02/07/24 05:37 02/07/24 05:37 Lab Results 02/05/24 02/05/24 02/05/24 Range/Units 11:45 11:54 12:03 WBC 6.14 (4.8-10.8) K/ul RBC 4.07 L (4.20-5.40) M/uL Hgb 11.4 L (12.0-16.0) g/dl POC Hgb 11.9 L (12.0-16.0) g/dl Hct 35.6 L (37.0-47.0) % POC Hct 35 L (37-47) % MCV 87.5 (80.0-100.0) fL MCH 28.0 (25.0-34.0) pg MCHC 32.0 (32.0-36.0) g/dL RDW Std Deviation 47.6 H (36.4-46.3) fL RDW Coeff of Sam 14.8 H (11.5-14.5) % Plt Count 240 (130-400) K/uL MPV 10.0 (9.4-12.4) fL Immature Gran % (Auto) 0.2 % Neut % (Auto) 49.2 % Lymph % (Auto) 34.5 % [place] % (Auto) 12.2 % Eos % (Auto) 2.6 % Baso % (Auto) 1.3 % Neut # (Auto) 3.02 (1.40-6.50) K/uL Lymph # (Auto) 2.12 (1.20-3.40) K/uL [place] # (Auto) 0.75 H (0.11-0.59) K/uL Eos # (Auto) 0.16 (0.00-0.50) K/uL Baso # (Auto) 0.08 (0.00-0.20) K/uL Immature Gran # (Auto) 0.01 (0.01-0.20) K/uL POC Sodium 141 (135-144) mmol/L Sodium 141 (136-145) mmol/L POC Potassium 4.2 (3.3-5.0) mmol/L Potassium 4.0 (3.5-5.1) mmol/L POC Chloride 101 (101-112) mmol/L Chloride 104 (98-107) mmol/L Carbon Dioxide 30 (21-32) mmol/L POC Total CO2 31 (24-31) mmol/L Anion Gap 7 (3-11) POC Anion Gap 13.0 L (16-25) mmol/L POC BUN 12 (7-18) mg/dl BUN 11 (6-23) mg/dl Creatinine 1.06 (0.6-1.2) mg/dl POC Creatinine 1.1 (0.6-1.3) mg/dl Est Cr Clr Drug Dosing Not Reportable Est GFR ( Amer) 57.4 ml/min Est GFR (Non-Af Amer) 49.6 ml/min BUN/Creatinine Ratio 10.4 (10-20) Glucose 172 H (70-99(Fasting)) mg/dl POC Glucose (other) 168 H (70-99) mg/dl Lactate 2.4 H* (0.4-2.0) mmol/L Calcium 9.2 (8.6-10.3) mg/dl POC Ioniz Calcium [place] 1.17 (1.12-1.32) mmol/l Magnesium 1.9 (1.7-2.4) mg/dl Total Bilirubin 0.6 (0.2-1.0) mg/dl Direct Bilirubin 0.7 H (0-0.2) mg/dl AST 21 (13-39) U/L ALT 10 (7-52) U/L Alkaline Phosphatase 61 (34-104) U/L Troponin I High Sens 8.2 (0-14) pg/ml Total Protein 6.6 (6.0-8.3) gm/dl Albumin 3.9 (3.4-5.0) gm/dl Procalcitonin 0.02 (0-0.5) ng/ml TSH 3.213 (0.300-4.500) uIu/ml Urine Color Yellow Urine Appearance Clear (Clear) Urine pH 8.0 H (4.5-7.5) Ur Specific [place] 1.006 (1.000-1.030) Urine Protein Negative (Negative) Urine Glucose (UA) Negative (Negative) Urine Ketones Negative (Negative) Urine Blood Negative (Negative) Urine Nitrite Negative (Negative) Urine Bilirubin Negative (Negative) Urine Urobilinogen Negative (Negative) Ur Leukocyte Esterase Trace H (Negative) Urine WBC (Auto) 6-10 H (0-5) /hpf Urine RBC (Auto) 0-2 (0-2) /hpf U Hyaline Cast (Auto) 0-2 (0-2) /lpf U Epithel Cells (Auto) 0-2 (0-2) /hpf Urine Bacteria (Auto) None Seen (None Seen) Administered Medications Carvedilol (Carvedilol 3.125 Mg Tab) 3.125 mg PO BIDM [facility] Stop: 03/06/24 17:14 Last Admin: 02/07/24 08:25 Dose: 3.125 mg Documented By: Admin: 02/06/24 17:55 Dose: 3.125 mg Documented By: Admin: 02/06/24 12:54 Dose: 3.125 mg Documented By: Admin: 02/05/24 19:09 Dose: 3.125 mg Documented By: ALEJANDRO Clopidogrel Bisulfate (Clopidogrel Bisulfate 75 Mg Tab) [facility] [place] [facility] [place] Stop: 03/07/24 08:59 Last Admin: 02/07/24 08:25 Dose: 75 mg Documented By: Admin: 02/06/24 11:20 Dose: 75 mg Documented By: GILLES Donepezil HCl (Donepezil Hcl 5 Mg Tab) 5 mg PO [facility] Stop: 03/06/24 20:59 Last Admin: 02/06/24 20:03 Dose: 5 mg Documented By: Admin: 02/05/24 20:44 Dose: 5 mg Documented By: SHEMAR Enoxaparin Sodium (Enoxaparin Inj 40 Mg/0.4 Ml Syr) 40 mg SQ Q24H [facility] Stop: 03/06/24 20:59 Last Admin: 02/06/24 20:02 Dose: 40 mg Documented By: Admin: 02/05/24 20:44 Dose: 40 mg Documented By: SHEMAR Furosemide (Furosemide 40 Mg Tab) 40 mg PO QAM [facility] Stop: 03/07/24 08:59 Last Admin: 02/07/24 08:25 Dose: 40 mg Documented By: Admin: 02/06/24 11:20 Dose: 40 mg Documented By: GILLES Furosemide (Furosemide 40 Mg Tab) [facility] [place] [facility] [place] Stop: 03/08/24 08:59 Last Admin: 02/07/24 08:26 Dose: Not Given Documented By: GILLES Thiamine HCl 200 mg/ Sodium (Chloride) 52 mls @ 210 mls/hr IV BID [facility] Stop: 02/09/24 08:59 Last Infusion: 02/07/24 08:49 Dose: Infused Documented By: Admin: 02/07/24 08:26 Dose: 210 mls/hr Documented By: Infusion: 02/06/24 20:19 Dose: Infused Documented By: Admin: 02/06/24 20:04 Dose: 210 mls/hr Documented By: Infusion: 02/06/24 11:51 Dose: Infused Documented By: Admin: 02/06/24 11:22 Dose: 210 mls/hr Documented By: GILLES Ciprofloxacin (Cipro / D5w) 400 mg in 200 mls @ 100 mls/hr IV Q12H [facility]; Protocol Stop: 02/11/24 12:29 Last Admin: 02/07/24 12:21 Dose: 100 mls/hr Documented By: Infusion: 02/07/24 01:54 Dose: Infused Documented By: Admin: 02/06/24 23:50 Dose: 100 mls/hr Documented By: Infusion: 02/06/24 14:51 Dose: Infused Documented By: Admin: 02/06/24 12:54 Dose: 100 mls/hr Documented By: GILLES Insulin Aspart (Insulin Aspart Per Unit Charge) 0 units SC ACHS [facility] Stop: 03/06/24 16:29 Last Admin: 02/07/24 12:43 Dose: 3 units Documented By: GILLES Co-signed By: VANESSA Admin: 02/07/24 09:10 Dose: 9 units Documented By: GILLES Co-signed By: VANESSA Admin: 02/06/24 20:19 Dose: 1 units Documented By: TASNEEM Co-signed By: NINO Admin: 02/06/24 17:51 Dose: 5 units Documented By: GILLES Co-signed By: HOPE Admin: 02/06/24 13:11 Dose: 5 units Documented By: GILLES Co-signed By: HOPE Admin: 02/06/24 09:25 Dose: 3 units Documented By: GILLES Co-signed By: ALEJANDRO(2) Admin: 02/05/24 22:05 Dose: Not Given Documented By: HERRERA Co-signed By: TASNEEM Admin: 02/05/24 19:09 Dose: 2 units Documented By: ALEJANDRO Co-signed By: NORBERTO Insulin Glargine (Lantus Per Unit Charge) 5 units SQ BID [facility] Stop: 03/06/24 20:59 Last Admin: 02/07/24 09:10 Dose: 5 units Documented By: GILLES Co-signed By: VANESSA Admin: 02/06/24 20:19 Dose: 5 units Documented By: TASNEEM Co-signed By: NINO Admin: 02/06/24 09:25 Dose: 5 units Documented By: GILLES Co-signed By: ALEJANDRO(2) Admin: 02/05/24 20:44 Dose: 5 units Documented By: SHEMAR Co-signed By: OANH Levothyroxine Sodium (Levothyroxine Sodium 25 Mcg Tablet) 25 mcg PO DAILYBB [facility] Stop: 03/07/24 06:29 Last Admin: 02/07/24 06:04 Dose: 25 mcg Documented By: Admin: 02/06/24 11:19 Dose: 25 mcg Documented By: GILLES Magnesium Oxide (Magnesium Oxide 400 Mg Tab) 400 mg PO BID [facility] Stop: 03/06/24 20:59 Last Admin: 02/07/24 08:25 Dose: 400 mg Documented By: Admin: 02/06/24 20:03 Dose: 400 mg Documented By: Admin: 02/06/24 11:20 Dose: 400 mg Documented By: Admin: 02/05/24 20:44 Dose: 400 mg Documented By: SHEMAR Pantoprazole Sodium (Pantoprazole 40 Mg Tab) 40 mg PO QAM [facility] Stop: 03/07/24 08:59 Last Admin: 02/07/24 08:25 Dose: 40 mg Documented By: Admin: 02/06/24 11:20 Dose: 40 mg Documented By: GILLES Paroxetine HCl (Paroxetine Hcl 20 Mg Tab) 20 mg PO HS [facility] Stop: 03/06/24 20:59 Last Admin: 02/06/24 20:03 Dose: 20 mg Documented By: Admin: 02/05/24 20:44 Dose: 20 mg Documented By: SHEMAR Discontinued Medications Acetaminophen (Acetaminophen 500 Mg Tab) 1,000 mg PO NOW STA Stop: 02/06/24 22:47 Last Admin: 02/06/24 22:56 Dose: 1,000 mg Documented By: TASNEEM Ceftriaxone Sodium (Rocephin) 2,000 mg in 50 mls @ 100 mls/hr IV NOW STA Stop: 02/05/24 13:41 Last Infusion: 02/05/24 14:20 Dose: Infused Documented By: Admin: 02/05/24 13:42 Dose: 100 mls/hr Documented By: ALEJANDRO Thiamine HCl 500 mg/ Sodium (Chloride) 55 mls @ 210 mls/hr IV NOW STA Stop: 02/05/24 14:20 Last Infusion: 02/05/24 14:57 Dose: Infused Documented By: Admin: 02/05/24 14:36 Dose: 210 mls/hr Documented By: ALEJANDRO Daptomycin 325 mg/ Syringe 6.5 mls @ 3.25 mls/min IV Q24H [facility]; Protocol Stop: 02/15/24 14:59 Last Admin: 02/05/24 15:05 Dose: 3.25 mls/min Documented By: ALEJANDRO Lactated Ringer's (Lr) 1,000 mls @ 80 mls/hr IV .[id number] [facility] Stop: 02/05/24 20:59 Last Infusion: 02/06/24 03:35 Dose: Infused Documented By: Admin: 02/05/24 15:05 Dose: 80 mls/hr Documented By: ALEJANDRO Discharge Plan Visit Data Chief Complaint: Altered Mental Status ED Provider: Fernanda Murrieta Discharge Problem: UTI (urinary tract infection), Encephalopathy Patient Disposition: Admitted As Inpatient Discharge Instructions Interventions: ED Discharge Assessment Last Done: 02/05/24 21:41
[2024-02-05 12:06] LABS: iSTAT Creatinine 1.1 mg/dl (0.6-1.3); iSTAT Hemoglobin 11.9 g/dl (12.0-16.0); iSTAT Ionized Calcium 1.17 mmol/l (1.12-1.32); iSTAT Potassium 4.2 mmol/L (3.3-5.0)
[2024-02-05 12:09] LABS: Basophils # (auto) 0.08 K/uL (0.00-0.20); Basophils % (auto) 1.3 %; Eosinophils # (auto) 0.16 K/uL (0.00-0.50); Eosinophils % (auto) 2.6 %; Hematocrit (blood only) 35.6 % (37.0-47.0); Hemoglobin 11.4 g/dl (12.0-16.0); Immature Granulocytes # (auto) 0.01 K/uL (0.01-0.20); Immature Granulocytes % (auto) 0.2 %; Lymphocytes # (auto) 2.12 K/uL (1.20-3.40); Lymphocytes % (auto) 34.5 %; Mean Corpuscular Volume 87.5 fL (80.0-100.0); Monocytes # (auto) 0.75 K/uL (0.11-0.59); Monocytes % (auto) 12.2 %; Neutrophils # (auto) 3.02 K/uL (1.40-6.50); Neutrophils % (auto) 49.2 %; Platelet Count 240 K/uL (130-400); RDW Coefficient of Variation 14.8 % (11.5-14.5); RDW Standard Deviation 47.6 fL (36.4-46.3); Red Blood Count 4.07 M/uL (4.20-5.40); White Blood Count 6.14 K/ul (4.8-10.8)
[2024-02-05 12:20] LABS: Appearance Urine Clear (Clear); Bacteria Urine Automated None Seen (None Seen); Bilirubin Urine Negative (Negative); Blood Urine Negative (Negative); Cast Urine Automated 0-2 /lpf (0-2); Color Urine Yellow; Epithelial Cell Urine Auto 0-2 /hpf (0-2); Glucose Urine UA Negative (Negative); Ketones Urine Negative (Negative); Leukocyte Esterase Urine Trace (Negative); Nitrite Urine Negative (Negative); Protein Urine Negative (Negative); RBC Urine Automated 0-2 /hpf (0-2); Specific Gravity Urine 1.006 (1.000-1.030); Urobilinogen Urine Negative (Negative)
--- NOTE | 2024-02-05 12:26 | XRay Report ---
XR chest 1V portable HISTORY: Sepsis COMPARISON: Chest 04/18/2023. FINDINGS: No pneumothorax. The heart remains mildly enlarged. No pleural effusions. No focal lung con solidations. There is mild central pulmonary vascular congestion without overt edema. Calcifications within the aortic knob. No acute fractures. Degenerative changes within the shoulders. IMPRESSION: Cardiomegaly and mild congestive change. ACT 112: Negative or not required by law. Electronically signed by: Otis Pierre M.D. 02/05/2024 12:25 PM
[2024-02-05 12:38] LABS: Alanine Aminotransferase 10 U/L (7-52); Albumin Level 3.9 gm/dl (3.4-5.0); Alkaline Phosphatase 61 U/L (34-104); Anion Gap 7 (3-11); Aspartate Aminotransferase 21 U/L (13-39); BUN Creatinine Ratio 10.4 (10-20); Bilirubin,Total 0.6 mg/dl (0.2-1.0); Blood Urea Nitrogen 11 mg/dl (6-23); Calcium 9.2 mg/dl (8.6-10.3); Carbon Dioxide 30 mmol/L (21-32); Chloride 104 mmol/L (98-107); Est GFR (African American) 57.4 ml/min; Est GFR (Non-African American) 49.6 ml/min; Glucose 172 mg/dl (70-99(Fasting)); Magnesium 1.9 mg/dl (1.7-2.4); Sodium 141 mmol/L (136-145); Total Protein 6.6 gm/dl (6.0-8.3); Troponin I High Sensitivity 8.2 pg/ml (0-14)
--- NOTE | 2024-02-05 12:43 | CT Scan Report ---
CT head/brain wo con CLINICAL HISTORY: 78 years-old Female with AMS. Acutely altered mental status TECHNIQUE: Multiple axial CT images of the head were obtained without contrast. A dose lowering tech nique was utilized adhering to the principles of ALARA. CT DOSE: 547.75 mGy.cm COMPARISON: 04/20/2023. FINDINGS: No acute intracranial hemorrhage, midline shift, intracranial mass, hydrocephalus, territorial ischem ia or abnormal extra-axial collection. Involutional changes with chronic microvascular ischemic disea se. Bilateral parietal lobe and bilateral cerebellar encephalomalacia related to chronic infarcts. The calvarium is intact. The paranasal sinuses, mastoid air cells, and middle ear cavities are clear . IMPRESSION: No acute intracranial abnormality. ACT 112: Negative or not required by law. The above report was generated using voice recognition software. It may contain grammatical, syntax o r spelling errors. Electronically signed by: Noah Fletcher M.D. 02/05/2024 12:42 PM
[2024-02-05] MEDS: cefTRIAXone SODIUM 2,000 MG/50 ML BAG IV STA (13:42)
[2024-02-05 13:48] LABS: Bilirubin Direct 0.7 mg/dl (0-0.2)
--- NOTE | 2024-02-05 14:04 | History & Physical Report ---
Date of Service February 05, 2024 Assessment & Plan (1) Encephalopathy: Plan: -Admit to med/tele -Currently stable and back to her Neurologic baseline per Family bedside -Presented to the ED after being found in her room, responsive only to painful stimuli by staff at her personal mcc -Patient was noted to be in her normal state of health this am and ate breakfast without issue -No focal neuro defects on exam, CT head/brain wo con is negative for acute findings -WBC is WNL, renal function is stable, glucose is stable -Patient reportedly presents this way when she get's UTI's per family, this is very similar to her last admission to [facility] in 2022 -Lactate on arrival was 2.4, patient appears slightly dry on exam but has been hemodynamically stable and non-toxic appearing -During her last admission the patient's initial UA appeared clean but her urine culture grew enterococcus faecalis >UA today shows trace Leukocyte esterase and 6-10 WBC without bacterial or increased epithelial level -S/P one dose of Ceftriaxone in the ED -Will treat her with Daptomycin for now based on urine culture and sensitivities from 2022 admission -Will order urine culture based off of UA collected in the ED, follow results -Will obtain vitamin B1 level then given 500 mg IV thiamine today with taper starting tomorrow -Per review of her updated med rec, she is no long on antiepileptics, will monitor on seizure precautions for now but will hold off on further workup as we likely have our cause -Will obtain TSH with free T4 if required -Fall/aspiration precautions -SQ lovenox for DVT PPX -HH/DMII diet with 2gm sodium restriction -AM CBC, CMP, mag, PT/INR (2) Lactate blood increased: Plan: -Initial lactate in the ED is 2.4 -Patient does not meet sepsis criteria, was non-toxic, and hemodynamically stable in the ED, therefore IV fluids were held as she had mild congestive changes on CXR -Will give 500 mL LR at 80 mL/hr on admission as patient had her dose of am lasix today and appears slightly dry on exam -Can plan to resume PO lasix tomorrow if stable, will need to order tomorrow -Will monitor repeat lactate (3) Dementia: Plan: -Daughter confirms back to neurologic baseline at time of admission -Continue Donepezil -Monitor for ing (4) Hypothyroidism: Plan: -Conitnue levothyroxine (5) HTN (hypertension): Plan: -Continue Carvedilol -Hold PO lasix for now (6) Diabetes: Plan: -Hold metformin -Monitor BSG ACHS, goal is 110-160 -Normally takes 10 units lantus HS, will change to 5 units BID for now -Start CF 50 and CR of 15 -Adjust regimen as needed (7) Seizure, late effect of stroke: Plan: -No longer on antiepileptics -Continue Plavix -Holding statin while on Daptomycin -Continue seizure precautions for now Plan The patient was discussed with Dr. Zhao at the time of the admission History of Present Illness Chief Complaint: [facility] Primary Care Provider: Bonifacio Ibanez DO Deanna is an 78 year old female with a PMH significant for Vascular Dementia, seizure disorder as a complication of previous CVA, recurrent UTI's, DM, HTN, HFpEF, HLP, Hypothyroidism and GERD who presented to the [facility] ED on 02/05/24 via EMS with concerns for acute confusion. She ws noted to be hypertensive on arrival at 172/92 but was otherwise stable. Labs were significant for a glucose of 168, initial lactate of 2.4, direct bili of 0.7 with other LFT's WNL, and UA with trace leukocyte esterase and 6-[address] of the head/brain wo con was read as negative for acute findings. CXR was read as "Cardiomegaly and mild congestive change.". Prior to admission the patient was given a dose of Ceftriaxone. The patient was not given IV fluids in the ED as she did not meet sepsis criteria, was hemodynamically stable, and was noted to have signs of congestive failure on ECG. At the time of the exam the patient was lying in bed in no acute distress, currently alert, with her Daughter/POA bedside. History was mainly obtained from the patient's Daughter due to the patient's baseline mental status with Dementia. Her Daughter explains that the patient typically presents with episodes of unresponsiveness when she get's UTI's. She has a hx of recurrent UTI's. She still follows with Dr. Culp of [facility] for her Vacular Dementia and possible seizure history. The patient's daughter explains that the patient was reportedly in her normal state of health this am and ate breakfast without issue. She went back to her room after breakfast. When staff when to get her for lunch she was responsive to painful stimuli only. The patient has no complaints at the time of my exam. Her Daughter confirms that the patient is a full code and her daughter is her POA. I spoke to staff at [facility]. They confirm the above history and confirm that the patient had her am meds today. The patient was last admitted to [facility] from 04/19/23-04/28/23 for a very similar presentation. An extensive workup was obtained including Neurology consult, stroke workup, EEG, infectious workup, and Vitamin B1 level. MRI of the brain showed chronic vascular changes but was negative for acute findings. The patient was started on thiamine therapy as her Vitamin B1 level was low at 7. Neurology recommended starting the patient on Keppra for possible subclinical seizures. Her Urine culture grew Enterococcus faecalis and she was discharged on a course of Ciprofloxacin. Please refer to Dr. Zhao's attestation for any changes to the treatment plan Allergies Allergy/AdvReac Type Severity Reaction Status Date / Time aspirin Allergy Severe Hives Verified 02/05/24 14:42 NSAIDS (Non-Steroidal Allergy Intermediate Hives Verified 08/20/23 11:15 Anti-Inflamma Penicillins Allergy Intermediate Hives Verified 02/05/24 14:42 fenofibrate Allergy Unknown ON PT MED Verified 08/20/23 11:15 LIST naproxen Allergy Unknown Unknown - Unverified 02/05/24 14:42 On Med List from [facility] propoxyphene Allergy Unknown ON PT MED Verified 08/20/23 11:15 LIST vancomycin Allergy Redness of Verified 08/20/23 11:32 Skin Home Medications Medication Instructions Recorded Confirmed Type carvedilol 3.125 mg tablet 3.125 mg PO BID 01/29/22 02/05/24 History paroxetine HCl 20 mg tablet 20 mg PO HS 01/29/22 02/05/24 History rosuvastatin 20 mg tablet 20 mg PO HS 01/29/22 02/05/24 History metformin 1,000 mg tablet 1,000 mg PO QAM 01/14/23 02/05/24 History cholecalciferol (vitamin D3) 25 25 mcg PO DAILY 03/17/23 02/05/24 History mcg (1,000 unit) capsule (Vitamin D3) levothyroxine 25 mcg tablet 25 mcg PO QAM 03/17/23 02/05/24 History (Synthroid) multivitamin with minerals-folic 1 tab PO QAM 03/17/23 02/05/24 History acid 200 mcg chewable tablet (Adult Multivitamin Gummies) magnesium oxide 400 mg (241.3 mg 400 mg PO BID #0 tabs 03/20/23 02/05/24 Rx magnesium) tablet clopidogrel 75 mg tablet 75 mg PO QAM #30 tabs 04/28/23 02/05/24 Rx furosemide 20 mg tablet 40 mg PO QAM 08/18/23 02/05/24 History acetaminophen 325 mg tablet 650 mg PO Q4H PRN Pain/Fever 02/05/24 02/05/24 History dextromethorphan-guaifenesin ER 60 1 tab PO BID PRN Cough/Congestion 02/05/24 02/05/24 History mg-1,200 mg tab,extend release,12hr (Mucinex DM) diclofenac sodium 1 % topical gel 2 g topical QID PRN Pain 02/05/24 02/05/24 History donepezil 5 mg tablet 5 mg PO HS 02/05/24 02/05/24 History emollient combination no.92 1 applic topical BID Dry skin - 02/05/24 02/05/24 History (Lubriderm Daily Moisture lotion) Legs hydroxyzine HCl 25 mg tablet 25 mg PO TID PRN Itching 02/05/24 02/05/24 History insulin glargine 100 unit/mL (3 10 unit subcut HS 02/05/24 02/05/24 History mL) subcutaneous pen (Lantus Solostar U-100 Insulin) loperamide 2 mg capsule 4 mg PO DAILY PRN Diarrhea 02/05/24 02/05/24 History magnesium hydroxide 400 mg/5 mL 2,400 mg PO UD PRN Constipation 02/05/24 02/05/24 History oral suspension (Milk of Magnesia) omeprazole 40 mg capsule,delayed 40 mg PO QAM 02/05/24 02/05/24 History release potassium chloride 20 mEq 20 meq PO DAILY 02/05/24 02/05/24 History tablet,extended release(part/cryst) thiamine mononitrate (vit B1) 100 100 mg PO QAM 02/05/24 02/05/24 History mg tablet 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 Dementia Surgical History S/P colonoscopy S/P hysterectomy S/P appendectomy History of back surgery Status post right knee replacement No pertinent past surgical history Social History Smoking Status: Never smoker Second Hand Exposure: No; Do You Dip or Chew Tobacco: No; Hx Alcohol Use: No Hx Substance Use: No Preferred Language: Armenian Communication Ability: Effective Visual Impairment: No Limitations Hearing Ability: Normal Traffic Investigator Required: No Beliefs That Will Affect Care: None marital status: / Current Living Situation: Half-Way Current Living Situation Comment: At [facility] facility current occupational status: retired Other Information That Helps Us Care for You: No Feels Safe at Home: Yes Safety Concerns: Feels Safe At This Time Childhood Exposure to Second-Hand Smoke: No Diet: diabetic Dental Care, Regularly: No Physical Activity Frequency: Does not Exercise Seatbelt Use: always Sunscreen Use: No Assistive Devices: Walker Physical Exam Physical Exam: Physical Exam: General: In no acute distress, stated age, well-nourished, non-toxic appearing HEENT: Normocephalic, atraumatic, no scleral icterus, pupils around round, symmetrical, and reactive to light, dry mucus membranes, trachea midline, no thyromegaly Chest/Pulm: No respiratory distress, symmetrical chest expansion, rales noted in the BL lower lung garay, otherwise CTA Cardiac: RRR, no murmurs noted Abdomen: Negative for ascites and bruising, normoactive bowel sounds, soft, non-tender to palpation throughout Musculoskeletal: Symmetrical and without signs of acute trauma, upper and lower extremities with full ROM, no atrophy, spasticity, or flaccidity Extremities: Radial, dorsalis pedis, and posterior tibial pulses are intact and symmetrical, symmetrical, non-pitting edema noted in the BL LE's Skin: Warm, dry, no rashes , lesions, or scars noted Neuro: Alert and oriented to person and place only (is patient's baseline per Daughter), no focal defects, CN II-XII tested and intact, negative cerebellar and pronator drift in the BL upper extremities, no tremors noted Psych: No acute distress, calm and cooperative during the exam Results & Data Results & Data Vital Signs (Past 12 Hours) Vital Signs Temp Pulse Pulse Resp BP BP Pulse Ox 02/05/24 13:04 74 02/05/24 12:13 76 19 172/92 H 97 02/05/24 12:09 98 02/05/24 12:09 98 02/05/24 11:40 99 02/05/24 11:40 36.5 C 77 19 141/95 H 99 O2 Del Method 02/05/24 13:04 02/05/24 12:13 Room Air 02/05/24 12:09 Room Air 02/05/24 12:09 Room Air 02/05/24 11:40 Room Air 02/05/24 11:40 Room Air Laboratory Results Abnormal lab results 02/05/24 02/05/24 02/05/24 Range/Units 11:45 11:54 12:03 RBC 4.07 L (4.20-5.40) M/uL Hgb 11.4 L (12.0-16.0) g/dl POC Hgb 11.9 L (12.0-16.0) g/dl Hct 35.6 L (37.0-47.0) % POC Hct 35 L (37-47) % RDW Std Deviation 47.6 H (36.4-46.3) fL RDW Coeff of Sam 14.8 H (11.5-14.5) % [place] # (Auto) 0.75 H (0.11-0.59) K/uL POC Anion Gap 13.0 L (16-25) mmol/L Glucose 172 H (70-99(Fasting)) mg/dl POC Glucose (other) 168 H (70-99) mg/dl Lactate 2.4 H* (0.4-2.0) mmol/L Direct Bilirubin 0.7 H (0-0.2) mg/dl Urine pH 8.0 H (4.5-7.5) Ur Leukocyte Esterase Trace H (Negative) Urine WBC (Auto) 6-10 H (0-5) /hpf Diagnostic Findings Chest X-Ray 02/05/24 11:48 XR chest 1V portable HISTORY: Sepsis COMPARISON: Chest 04/18/2023. FINDINGS: No pneumothorax. The heart remains mildly enlarged. No pleural effusions. No focal lung consolidations. There is mild central pulmonary vascular congestion without overt edema. Calcifications within the aortic knob. No acute fractures. Degenerative changes within the shoulders. IMPRESSION: Cardiomegaly and mild congestive change. ACT 112: Negative or not required by law. Electronically signed by: Otis Pierre M.D. 02/05/2024 12:[address] 02/05/24 11:50 CT head/brain wo con CLINICAL HISTORY: 78 years-old Female with AMS. Acutely altered mental status TECHNIQUE: Multiple axial CT images of the head were obtained without contrast. A dose lowering technique was utilized adhering to the principles of ALARA. CT DOSE: 547.75 mGy.cm COMPARISON: 04/20/2023. FINDINGS: No acute intracranial hemorrhage, midline shift, intracranial mass, hydrocephalus, territorial ischemia or abnormal extra-axial collection. Involutional changes with chronic microvascular ischemic disease. Bilateral parietal lobe and bilateral cerebellar encephalomalacia related to chronic infarcts. The calvarium is intact. The paranasal sinuses, mastoid air cells, and middle ear cavities are clear. IMPRESSION: No acute intracranial abnormality. ACT 112: Negative or not required by law. The above report was generated using voice recognition software. It may contain grammatical, syntax or spelling errors. Electronically signed by: Noah Fletcher M.D. 02/05/2024 12:42 PM ECG Additional Comments: Sinus rhythm with 1st degree A-V block Left bundle branch block Abnormal ECG When compared with ECG of 18-APR-2023 17:34, No significant change was found Code Status & VTE Plan Code Status full code VTE Prophylaxis Plan VTE Prophylaxis will be ordered: Yes Supervising Physician Co-Signing Physician Notes I personally saw and examined the patient. I verified all perkins points and agree with Neal Mohr PA-C with the following exceptions and/or additions: 78 year old female presents to the ER following episode of acute confusion. Now back to baseline. Prior episodes thought possibly secondary to possible subclinical seizure activity +/- UTIs. O/E HS RRR, no murmurs, Chest CTAB, Abdo SNT, no CVA tenderness A/P Acute encephalopathy - now resolved. ?UTI related UTI - Follow up urine and blood cultures. Daptomycin to cover recent enterococcus faecalis + ceftriaxone PG Care Time/CCT Total # of Minutes Spent Total Time Spent with Patient: Total time spent is greater than 50% in coordination of care (as documented) at patient's floor/unit and/or counseling patient: Coding [place] [address] INT INP/OBS CARE 3/75MIN Patient Type Established Medical Decision Making High Complexity Diagnoses Encephalopathy G93.40 Lactate blood increased R79.89 Dementia F03.90 Hypothyroidism E03.9 HTN (hypertension) I10 Diabetes E11.9 Seizure, late effect of stroke I69.398; R56.9
[2024-02-05] MEDS ORDERED: Patient's HEIGHT &/or WEIGHT Needed SCH (14:30)
[2024-02-05] MEDS: THIAMINE HCL 500 MG in SODIUM CHLORIDE 0.9% 50 ML IV STA (14:36)
[2024-02-05 14:41] LABS: Thyroid Stimulating Hormone 3.213 uIu/ml (0.300-4.500)
[2024-02-05] MEDS ORDERED: CARBOHYDRATES FOR HYPOGLYCEMIA PO PRN (14:52)
[2024-02-05] MEDS ORDERED: GLUCOSE 10 TAB/TUBE PO PRN (14:52)
[2024-02-05] MEDS ORDERED: GLUCOSE 40% GEL 15 GM TUBE PO PRN (14:52)
[2024-02-05] MEDS ORDERED: DEXTROSE 50% 50 ML SYRINGE IV PRN (14:52)
[2024-02-05] MEDS ORDERED: GLUCAGON FOR INJ 1 MG VIAL SQ PRN (14:52)
[2024-02-05] MEDS: LACTATED RINGER'S 1,000 ML IV SCH (15:05)
[2024-02-05] MEDS: DAPTOmycin 325 MG in SYRINGE 0 ML IV SCH (15:05)
[2024-02-05 15:56] LABS: Adenovirus PCR Not Detected (NotDetected); Bordetella parapertussis PCR Not Detected (NotDetected); Bordetella pertussis PCR Not Detected (NotDetected); Chlamydia pneumoniae PCR Not Detected (NotDetected); Coronavirus 229E PCR Not Detected (NotDetected); Coronavirus CoV-2 (COVID19)PCR Not Detected (NotDetected); Coronavirus HKU1 PCR Not Detected (NotDetected); Coronavirus NL63 PCR Not Detected (NotDetected); Coronavirus OC43PCR Not Detected (NotDetected); Human Metapneumovirus PCR Not Detected (NotDetected); Influenza A PCR Not Detected (NotDetected); Influenza B PCR Not Detected (NotDetected); Mycoplasma pneumoniae PCR Not Detected (NotDetected); Parainfluenza Virus 1 PCR Not Detected (NotDetected); Parainfluenza Virus 2 PCR Not Detected (NotDetected); Parainfluenza Virus 3 PCR Not Detected (NotDetected); Parainfluenza Virus 4 PCR Not Detected (NotDetected); Respiratory Syncytial VirusPCR Not Detected (NotDetected); Rhinovirus/Enterovirus PCR Not Detected (NotDetected)
[2024-02-05] MEDS: INSULIN ASPART PER UNIT CHARGE SC SCH (19:09)
[2024-02-05] MEDS: carvediloL 3.125 MG TAB PO SCH (19:09)
[2024-02-05] MEDS: MAGNESIUM OXIDE 400 MG TAB PO SCH (20:44)
[2024-02-05] MEDS: DONEPEZIL HCL 5 MG TAB PO SCH (20:44)
[2024-02-05] MEDS: LANTUS PER UNIT CHARGE SQ SCH (20:44)
[2024-02-05] MEDS: ENOXAPARIN INJ 40 MG/0.4 ML SYR SQ SCH (20:44)
[2024-02-05] MEDS: PARoxetine HCL 20 MG TAB PO SCH (20:44)
[2024-02-06 06:31] LABS: Basophils # (auto) 0.07 K/uL (0.00-0.20); Basophils % (auto) 1.1 %; Eosinophils # (auto) 0.16 K/uL (0.00-0.50); Eosinophils % (auto) 2.6 %; Hematocrit (blood only) 34.2 % (37.0-47.0); Hemoglobin 11.2 g/dl (12.0-16.0); Lymphocytes # (auto) 2.35 K/uL (1.20-3.40); Lymphocytes % (auto) 38.1 %; Mean Corpuscular Hemoglobin 27.8 pg (25.0-34.0); Mean Corpuscular Hgb Conc 32.7 g/dL (32.0-36.0); Mean Corpuscular Volume 84.9 fL (80.0-100.0); Mean Platelet Volume 10.1 fL (9.4-12.4); Monocytes # (auto) 0.78 K/uL (0.11-0.59); Monocytes % (auto) 12.7 %; Neutrophils % (auto) 45.5 %; Platelet Count 230 K/uL (130-400); RDW Coefficient of Variation 14.7 % (11.5-14.5); RDW Standard Deviation 45.6 fL (36.4-46.3); Red Blood Count 4.03 M/uL (4.20-5.40); White Blood Count 6.16 K/ul (4.8-10.8)
[2024-02-06 06:46] LABS: Albumin Globulin Ratio 1.6 (0.9-2); Albumin Level 3.6 gm/dl (3.4-5.0); BUN Creatinine Ratio 12.5 (10-20); Bilirubin,Total 0.6 mg/dl (0.2-1.0); Calcium 8.7 mg/dl (8.6-10.3); Creatinine Clr Calc Pharmacy 54.5 ml/min; Est GFR (African American) 58.8 ml/min; Est GFR (Non-African American) 50.7 ml/min; Globulin 2.2 gm/dl (2.5-4.0); Magnesium 1.8 mg/dl (1.7-2.4); Potassium 3.7 mmol/L (3.5-5.1); Total Protein 5.8 gm/dl (6.0-8.3)
[2024-02-06] MEDS: LEVOTHYROXINE SODIUM 25 MCG TABLET PO SCH (11:19)
[2024-02-06] MEDS: CLOPIDOGREL BISULFATE 75 MG TAB PO SCH (11:20)
[2024-02-06] MEDS: PANTOprazole 40 MG TAB PO SCH (11:20)
[2024-02-06] MEDS: FUROSEMIDE 40 MG TAB PO SCH (11:20)
[2024-02-06] MEDS: THIAMINE HCL 200 MG in SODIUM CHLORIDE 0.9% 50 ML IV SCH (11:22)
--- NOTE | 2024-02-06 12:13 | Hospitalist Progress Note ---
Date of Service February 06, 2024 Assessment & Plan (1) Encephalopathy: Plan: Acute metabolic encephalopathy present on admission. She appears to be back to her baseline. Gram-negative's identified in the urine. Daptomycin switched over to ciprofloxacin. Supportive care. (2) Lactate blood increased: Plan: Elevated lactic acid on admission due to underlying infection. Now normal. (3) Dementia: Plan: Stable. Supportive care. Continue Aricept. (4) Hypothyroidism: Plan: Stable. Conitnue levothyroxine (5) HTN (hypertension): Plan: Stable. Continue Carvedilol (6) Diabetes: Plan: ADA diet. Metformin is on hold. Sliding scale coverage as needed. Continue basal Lantus therapy (7) Seizure, late effect of stroke: Plan: No longer on antiepileptics. Stable. Will follow Plan Hopeful return to previous living arrangements on an oral antibiotic soon. Admission and Anticipated Discharge Date Admission Date: February 05, 2024 Subjective Awake. Pleasant. No acute problems. Urine culture is growing gram-negative bacilli. Daptomycin has been switched over to ciprofloxacin. She has a penicillin allergy. Will await final culture results and sensitivities. Blood cultures remain negative to date. Review of Systems 2 Review of Systems: Constitutional-no fever or chills ENT-no blurred vision, no double vision, no epistaxis, no sore throat Respiratory-no cough, no wheezing, no shortness of breath Cardiac-no palpitations, no chest pain, no syncope GI-no nausea, vomiting, diarrhea, melena, hematochezia -no urinary retention, no urinary incontinence, no dysuria, no hematuria Musculoskeletal-no joint pain, no muscle tenderness Skin-no bruising, no rashes, no pruritus Neuro-no isolated weakness, no paresthesia, no weakness Psych-no depression, no anxiety Physical Exam 2 Physical Exam: General-alert and oriented x3, no fever, no chills HEENT-head atraumatic and normocephalic, pupils equal and reactive to light, extraocular muscles intact Neck-no lymphadenopathy or thyromegaly, trachea midline Chest-clear to auscultation. No rales, wheezing or rhonchi Cardiac-regular rate and rhythm, normal S1 and S2 Abdomen-normal bowel sounds, no hepatosplenomegaly Extremities-no cyanosis, clubbing, or edema Neuro-cranial nerves II through XII intact, motor and sensory function within normal limits, strength symmetrical, no focal deficits Psych-normal affect, normal mood Results & Data Results & Data Vital Signs (Past 12 Hours) Vital Signs Temp Pulse Pulse Resp BP Pulse Ox O2 Del Method 02/06/24 12:02 Room Air 02/06/24 10:53 37.0 C 75 18 118/65 96 Room Air 02/06/24 10:48 75 02/06/24 07:48 36.6 C 69 20 132/77 93 Room Air 02/06/24 03:54 36.5 C 76 20 132/84 93 Room Air Laboratory Results 02/06/24 05:28 02/06/24 05:28 PG Care Time/CCT Total # of Minutes Spent Total Time Spent with Patient: Total time spent is greater than 50% in coordination of care (as documented) at patient's floor/unit and/or counseling patient: Coding Level of Care Code 57225 SUB INP/OBS CARE 3/50MIN Diagnoses Encephalopathy G93.40 Lactate blood increased R79.89 Dementia F03.90 Hypothyroidism E03.9 HTN (hypertension) I10 Diabetes E11.9 Seizure, late effect of stroke I69.398; R56.9
[2024-02-06] MEDS: CIPROFLOXACIN / D5W 400 MG/200 ML BAG IV SCH (12:54)
--- NOTE | 2024-02-06 13:06 | XCELERA ---
[id number]
[2024-02-06] MEDS: ACETAMINOPHEN 500 MG TAB PO STA (22:56)
[2024-02-07 06:35] LABS: Basophils # (auto) 0.08 K/uL (0.00-0.20); Basophils % (auto) 1.4 %; Eosinophils # (auto) 0.23 K/uL (0.00-0.50); Eosinophils % (auto) 3.9 %; Hematocrit (blood only) 35.3 % (37.0-47.0); Hemoglobin 11.2 g/dl (12.0-16.0); Immature Granulocytes # (auto) 0.04 K/uL (0.01-0.20); Immature Granulocytes % (auto) 0.7 %; Lymphocytes # (auto) 2.45 K/uL (1.20-3.40); Lymphocytes % (auto) 41.8 %; Mean Corpuscular Hemoglobin 27.2 pg (25.0-34.0); Mean Corpuscular Hgb Conc 31.7 g/dL (32.0-36.0); Mean Corpuscular Volume 85.7 fL (80.0-100.0); Monocytes # (auto) 0.84 K/uL (0.11-0.59); Monocytes % (auto) 14.3 %; Neutrophils # (auto) 2.22 K/uL (1.40-6.50); Neutrophils % (auto) 37.9 %; Platelet Count 230 K/uL (130-400); RDW Standard Deviation 46.6 fL (36.4-46.3); Red Blood Count 4.12 M/uL (4.20-5.40); White Blood Count 5.86 K/ul (4.8-10.8)
[2024-02-07 07:06] LABS: BUN Creatinine Ratio 14.8 (10-20); Calcium 9.1 mg/dl (8.6-10.3); Creatinine Clr Calc Pharmacy 42.1 ml/min; Est GFR (African American) 42.9 ml/min; Potassium 3.8 mmol/L (3.5-5.1)
[2024-02-07] MEDS: FUROSEMIDE 40 MG TAB PO SCH (08:26)
--- NOTE | 2024-02-07 08:57 | Hospitalist Progress Note ---
Date of Service February 07, 2024 Assessment & Plan (1) Encephalopathy: Plan: Acute metabolic encephalopathy secondary to Gram neg uti present on admission. improved continue ciprofloxacin awaiting identification and sensitivity (2) Diabetes: Plan: ADA diet. Metformin is on hold. Sliding scale coverage as needed. Continue basal Lantus therapy (3) Dementia: Plan: Chronic and stable. Supportive care. Continue Aricept. (4) Hypothyroidism: Plan: Chronic and stable. Continue levothyroxine (5) HTN (hypertension): Plan: Chronic and stable. Continue Carvedilol Plan Hopeful return to personal-detention which is the [facility] therapy does feel she is appropriate to return Admission and Anticipated Discharge Date Admission Date: February 05, 2024 Subjective Awake. Pleasant. No acute problems. Urine culture is growing gram-negative bacilli. Identification and sensitivities are pending continues on ciprofloxacin. Blood cultures are negative Patient is pleasant cannot recall events that led to her admission Physical Exam Physical Exam: Awake alert appropriate, oriented x 2, no focal complaints or problems Card exam is regular Lungs are clear Results & Data Results & Data Vital Signs (Past 12 Hours) Vital Signs Temp Pulse Pulse Resp BP BP Pulse Ox 02/07/24 08:18 02/07/24 07:28 97.9 F 75 18 130/83 93 02/07/24 03:52 97.5 F L 70 16 136/75 93 02/07/24 00:11 80 02/06/24 23:15 02/06/24 22:50 98.2 F 83 18 116/81 94 O2 Del Method 02/07/24 08:18 Room Air 02/07/24 07:28 Room Air 02/07/24 03:52 Room Air 02/07/24 00:11 02/06/24 23:15 Room Air 02/06/24 22:50 Room Air Laboratory Results Reviewed CBC Reviewed chemistry Reviewed PT notespatient able to return to personal-detention when stable PG Care Time/CCT Total # of Minutes Spent Total Time Spent with Patient: Total time spent is greater than 50% in coordination of care (as documented) at patient's floor/unit and/or counseling patient: Coding Level of Care Code 29356 SUB INP/OBS CARE 2/35MIN Diagnoses Encephalopathy G93.40 Diabetes E11.9 Dementia F03.90 Hypothyroidism E03.9 HTN (hypertension) I10
[2024-02-08 06:11] LABS: Basophils # (auto) 0.08 K/uL (0.00-0.20); Basophils % (auto) 1.3 %; Eosinophils # (auto) 0.28 K/uL (0.00-0.50); Eosinophils % (auto) 4.5 %; Hematocrit (blood only) 34.4 % (37.0-47.0); Hemoglobin 10.9 g/dl (12.0-16.0); Immature Granulocytes # (auto) 0.01 K/uL (0.01-0.20); Immature Granulocytes % (auto) 0.2 %; Lymphocytes # (auto) 2.58 K/uL (1.20-3.40); Mean Corpuscular Hemoglobin 27.3 pg (25.0-34.0); Mean Corpuscular Hgb Conc 31.7 g/dL (32.0-36.0); Monocytes # (auto) 0.87 K/uL (0.11-0.59); Monocytes % (auto) 13.8 %; Neutrophils # (auto) 2.47 K/uL (1.40-6.50); Neutrophils % (auto) 39.2 %; Platelet Count 224 K/uL (130-400); RDW Coefficient of Variation 15.1 % (11.5-14.5); RDW Standard Deviation 47.5 fL (36.4-46.3); White Blood Count 6.29 K/ul (4.8-10.8)
[2024-02-08 06:27] LABS: BUN Creatinine Ratio 17.7 (10-20); Calcium 9.1 mg/dl (8.6-10.3); Creatinine Clr Calc Pharmacy 42.7 ml/min; Est GFR (African American) 44.9 ml/min; Est GFR (Non-African American) 38.7 ml/min; Potassium 3.5 mmol/L (3.5-5.1)
--- NOTE | 2024-02-08 15:33 | Hospitalist Progress Note ---
Date of Service February 08, 2024 Assessment & Plan (1) Encephalopathy: Plan: Suspect acute metabolic encephalopathy due to E. coli UTI Urine cultures positive for E. coli with resistance. UC positive for E. coli, sensitive to cefepime/ceftriaxone/ertapenem/gent/Zosyn/Bactrim. With resistance to Unasyn/Augmentin, ciprofloxacin, levofloxacin. Patient has been tolerating IV cephalohowever culture is unfortunately resistant to this. History of hive allergy to penicillins, no history of sulfa allergy but creatinine remains slightly elevated at 1.3 from baseline of less than 1.1. 2?Prerenal azotemia versus SKY. Reasonable oral options for uncomplicated UTI include Bactrim and cefdinir. Sensitivities show third-generation cephalosporin sensitivity to ceftriaxone however high resistance to cefazolin which can be predictive of oral third-generation failure. Alternative includes Bactrim however given that she is already clinically improving on ciprofloxacin to ensure infection is resistant and her infection is uncomplicated suspect her risk of harm and failu re is lower with the cefdinir compared to Bactrim. Will give 1 dose of Rocephin today, and transition to cefdinir. Per CM review patient resides at the [facility]. Plan is to return there unless rehab is needed and then could reach out to [facility] for SNF bed and short-term rehab needs. patient is clinically improving and stable, and have reasonable oral antibiotic choice. Renal function is improving, today slightly above but near her baseline which seems to fluctuate from cr ~ 1.01.25PT on 02/05 noted near baseline recommended return to [facility], OT noted noted close to baseline but with slight increase in confusion at time of assessment but able to go to [facility] (2) Diabetes: Plan: ADA diet. Metformin is on hold. Sliding scale coverage as needed. Continue basal Lantus therapy (3) Dementia: Plan: Chronic and stable. Supportive care. Continue Aricept. (4) Hypothyroidism: Plan: Chronic and stable. Continue levothyroxine (5) HTN (hypertension): Plan: Chronic and stable. Continue Carvedilol Plan Hopeful return to personal-skilled nursing which is the [facility] therapy does feel she is appropriate to return Admission and Anticipated Discharge Date Admission Date: February 05, 2024 Subjective History limited by cognitive status, but is oriented to place and name. Appears to be mentating reasonably well and closer to baseline. Denies fever, chills, sweats, dysuria overnight. Does endorse an episode of incontinence. No chest pain or chest pressure. Physical Exam Physical Exam: General: Oriented to name and "hospital ". HEENT: Atraumatic, normocephalic. Pulm: CTAB A&P. -wheezes, -rales, -rhonchi. Symmetrical chest rise. No increased work of breathing. No respiratory distress. Cardiac: RRR, -mrg. Radial pulses intact and symmetrical. Abdominal: Nontender, nondistended, soft. BS present. Results & Data Results & Data Vital Signs (Past 12 Hours) Vital Signs Temp Pulse Pulse Resp BP Pulse Ox O2 Del Method 02/08/24 11:47 36.6 C 73 18 109/54 L 93 Room Air 02/08/24 07:47 Room Air 02/08/24 07:32 36.7 C 70 18 114/73 93 Room Air 02/08/24 07:30 74 PG Care Time/CCT Total # of Minutes Spent Total Time Spent with Patient: Total time spent is greater than 50% in coordination of care (as documented) at patient's floor/unit and/or counseling patient: Coding Diagnoses Encephalopathy G93.40 Diabetes E11.9 Dementia F03.90 Hypothyroidism E03.9 HTN (hypertension) I10
--- NOTE | 2024-02-08 16:21 | Discharge Summary ---
Date of Service February 08, 2024 Admission HPI Per Admitting Provider Deanna is an 78 year old female with a PMH significant for Vascular Dementia, seizure disorder as a complication of previous CVA, recurrent UTI's, DM, HTN, HFpEF, HLP, Hypothyroidism and GERD who presented to the [facility] ED on 02/05/24 via EMS with concerns for acute confusion. She ws noted to be hypertensive on arrival at 172/92 but was otherwise stable. Labs were significant for a glucose of 168, initial lactate of 2.4, direct bili of 0.7 with other LFT's WNL, and UA with trace leukocyte esterase and 6-[address] of the head/brain wo con was read as negative for acute findings. CXR was read as "Cardiomegaly and mild c ongestive change.". Prior to admission the patient was given a dose of Ceftriaxone. The patient was not given IV fluids in the ED as she did not meet sepsis criteria, was hemodynamically stable, and was noted to have signs of congestive failure on ECG. At the time of the exam the patient was lying in bed in no acute distress, currently alert, with her Daughter/POA bedside. History was mainly obtained from the patient's Daughter due to the patient's baseline mental status with Dementia. Her Daughter explains that the patient typically presents with episodes of unresponsiveness when she get's UTI's. She has a hx of recurrent UTI's. She still follows with Dr. Culp of [facility] for her Vacular Dementia and possible seizure history. The patient's daughter explains that the patient was reportedly in her normal state of health this am and ate breakfast without issue. She went back to her room after breakfast. When staff when to get her for lunch she was responsive to painful stimuli only. The patient has no complaints at the time of my exam. Her Daughter confirms that the patient is a full code and her daughter is her POA. I spoke to staff at [facility]. They confirm the above history and confirm that the patient had her am meds today. The patient was last admitted to [facility] from 04/19/23-04/28/23 for a very similar presentation. An extensive workup was obtained including Neurology consult, stroke workup, EEG, infectious workup, and Vitamin B1 level. MRI of the brain showed chronic vascular changes but was negative for acute findings. The patient was started on thiamine therapy as her Vitamin B1 level was low at 7. Neurology recommended starting the patient on Keppra for possible subclinical seizures. Her Urine culture grew Enterococcus faecalis and she was discharged on a course of Ciprofloxacin. Please refer to Dr. Zhao's attestation for any changes to the treatment plan Principal Diagnosis UTI Discharge Exam General: A&Ox2. NAD. Cooperative. HEENT: Atraumatic, normocephalic. Pulm: CTAB A&P. -wheezes, -rales, -rhonchi. Symmetrical chest rise. No increased work of breathing. No respiratory distress. Cardiac: RRR, -mrg. Radial pulses intact and symmetrical. Abdominal: Nontender, nondistended, soft. BS present. Discharge Data Allergies Allergy/AdvReac Type Severity Reaction Status Date / Time aspirin Allergy Severe Hives Verified 02/05/24 14:42 NSAIDS (Non-Steroidal Allergy Intermediate Hives Verified 08/20/23 11:15 Anti-Inflamma Penicillins Allergy Intermediate Hives Verified 02/08/24 15:46 fenofibrate Allergy Unknown ON PT MED Verified 08/20/23 11:15 LIST naproxen Allergy Unknown Unknown - Unverified 02/05/24 14:42 [facility] Med List [facility] propoxyphene Allergy Unknown ON PT MED Verified 08/20/23 11:15 LIST vancomycin Allergy Redness of Verified 08/20/23 11:32 Skin Consultations 02/05/24 14:32 ED Decision to Admit Stat Ordered Studies 02/05/24 11:50 CT head/brain wo con Stat Hospital Course (1) Encephalopathy: To do as outpatient: 1. Repeat BMP within 7 days to recheck creatinine levels/ensure renal function returns to baseline 2. Complete 4 additional days of cefdinir 300 mg twice daily to complete a 5- day course of treatment for E. coli UTI with fluoroquinolone resistance. If patient is deteriorating could convert to Bactrim based on sensitivities however given risk of kidney injury and patient's clinical improvement following Rocephin oral cephalosporin was chosen instead. 3. Continue follow-up with urology for frequent UTIs and possible anatomic interventions. May consider addition of methenamine after completion of cefdinir for UTI suppression Suspect acute metabolic encephalopathy due to E. coli UTI Urine cultures positive for E. coli with resistance. UC positive for E. coli, sensitive to cefepime/ceftriaxone/ertapenem/gent/Zosyn/Bactrim. With resistance to Unasyn/Augmentin, ciprofloxacin, levofloxacin. Patient has been tolerating IV cephalohowever culture is unfortunately resistant to this. History of hive allergy to penicillins, no history of sulfa allergy but creatinine remains slightly elevated at 1.3 from baseline of less than 1.1. 2?Prerenal azotemia versus SKY. Reasonable oral options for uncomplicated UTI include Bactrim and cefdinir. Sensitivities show third-generation cephalosporin sensitivity to ceftriaxone however high resistance to cefazolin which can be predictive of oral third-generation failure. Alternative includes Bactrim however given that she is already clinically improving on ciprofloxacin to ensure infection is resistant and her infection is uncomplicated suspect her risk of harm and failure is lower with the cefdinir compared to Bactrim. Will give 1 dose of Rocephin, then transition to cefdinir for PO. Renal function is improving, 02/07 slightly above but near her baseline which seems to fluctuate from cr ~ 1.01.25. PT on 02/05 noted near baseline recommended return to [facility], OT noted noted close to baseline but with slight increase in confusion at time of assessment but able to go to [facility] on dc. Mental status is back to baseline on 02/07, pt seen with multiple family members at bedside (2) Diabetes: ADA diet. Metformin is on hold. Sliding scale coverage as needed. Continue basal Lantus therapy (3) Dementia: Chronic and stable. Supportive care. Continue Aricept. Patient back to baseline 02/07 (4) Hypothyroidism: Chronic and stable. Continue levothyroxine (5) HTN (hypertension): Chronic and stable. Continue Carvedilol Plan Hopeful return to personal-jail which is the [facility] therapy does feel she is appropriate to return Total Time Total Time Spent Total Time Spent (In Minutes): Time spend day of discharge 45 minutes including direct patient care, documentation, review of labs and images, and coordination of care. Discharge Plan Discharge Items Patient Disposition: Personal Correction Reason For Visit: UNRESPONSIVE EPISODE, POSSIBLE UTI Discharge Diagnosis: UTI Activity: Resume your previous activity Non-emergency contact: Primary Care Provider Call non-emergency contact if: you have any medication questions Follow-up/Referrals: Bonifacio Ibaenz, [Primary Care Provider] - (Please schedule for within ~1 week, will need followup BMP to recheck creatinine) Diet: Regular Addtl Attending Provider Instructions: You were seen in the hospital for urinary tract infection. He clinically improved on antibiotics. Your urine culture showed E. coli that was resistant to ciprofloxacin. You received and improved after 2 doses of ceftriaxone, and IV antibiotic related to penicillin and did not show any signs of allergy to this antibiotic. You have been discharged on an oral antibiotic called cefdinir. Please take cefdinir 300 mg by mouth twice daily for 4 additional days to complete a course of treatment. You have followed with urology for lower urinary tract symptoms, irritation, frequency, recurrent UTIs and had discussed bladder procedure/bladder tuck in the past. You were voiding normally at time of discharge, please continue outpatient follow-up with urology for any ongoing concerns. After you complete your antibiotics, you are primary provider may want to start you on methenamine to help prevent UTIs in the future. Please discuss this with your primary care provider at your next follow-up appointment You had a mild kidney injury/elevated kidney numbers during admission. These were improving and near normal at time of discharge. Please have your primary care provider recheck a basic metabolic panel (BMP) in approximately 1 week as an outpatient to ensure your kidney function remains normal. If you develop any new or worsening symptoms including fever, chills, sweats, chest pain, chest pressure, difficulty breathing, uncontrolled nausea/vomiting, rash, wheezing, passing out or nearly passing out, bleeding, black/bloody bowel movements, or other new or concerning symptoms please call your primary care physician, or call 911 for re-evaluation in the emergency department if you are very concerned. Pending Studies at Discharge: Yes (BMP in one week by PCP) Stand-Alone Forms: My [employer], Smoking Cessation Skilled Items Patient informed of condition?: No DNR: No Discharge Level of Care: Other Communicable Disease: No Discharge Prognosis: Stable Lines: None Urinary Catheter: No Medications and DC Order Prescriptions: New cefdinir 300 mg Capsule 300 mg PO BID 4 Days Qty: 8 0RF Continued carvedilol 3.125 mg tablet 3.125 mg PO BID Rx Instructions: must administer with a meal/food paroxetine HCl 20 mg tablet 20 mg PO HS rosuvastatin 20 mg tablet 20 mg PO HS furosemide 20 mg tablet 40 mg PO QAM clopidogrel 75 mg Tablet 75 mg PO QAM Qty: 30 0RF metformin 1,000 mg tablet 1,000 mg PO QAM cholecalciferol (vitamin D3) [Vitamin D3] 25 mcg (1,000 unit) Capsule 25 mcg PO DAILY multivit with min-folic acid [Adult Multivitamin Gummies] 200 mcg Tablet,Chewable 1 tab PO QAM levothyroxine [Synthroid] 25 mcg tablet 25 mcg PO QAM Rx Instructions: for underactive thyroid gland magnesium oxide 400 mg (241.3 mg magnesium) Tablet 400 mg PO BID Qty: 0 0RF acetaminophen 325 mg tablet 650 mg PO Q4H PRN (Reason: Pain/Fever) loperamide 2 mg capsule 4 mg PO DAILY MDD 8mg/24hr PRN (Reason: Diarrhea) omeprazole 40 mg capsule,delayed release(DR/EC) 40 mg PO QAM magnesium hydroxide [Milk of Magnesia] 400 mg/5 mL suspension 2,400 mg PO UD PRN (Reason: Constipation) Rx Instructions: Take 30ml by mouth every 3rd day with no bowel movement dextromethorphan-guaifenesin [Mucinex DM] 60-1,200 mg Tablet Extended Release 12 Hr 1 tab PO BID PRN (Reason: Cough/Congestion) hydroxyzine HCl 25 mg tablet 25 mg PO TID PRN (Reason: Itching) insulin glargine [Lantus Solostar U-100 Insulin] 100 unit/mL (3 mL) insulin pen 10 unit SUBCUT HS Lubriderm Daily Moisture Lotion 1 applic TOPICAL BID donepezil 5 mg tablet 5 mg PO HS potassium chloride 20 mEq tablet,ER particles/crystals 20 meq PO DAILY diclofenac sodium 1 % gel 2 g topical QID PRN (Reason: Pain) thiamine mononitrate (vit B1) 100 mg tablet 100 mg PO QAM Discharge Orders: Discharge Order (Routine); Ordered 02/08/24 Ordered By: Bobby Baer Admission Data Admit Date/Time: 02/05/24 14:24 Attending Provider: Bobby Baer Admit Provider: Jorge A Zhao Primary Care Provider: Bonifacio Ibanez Other Providers: Jorge A Zhao Other Interventions: Discharge Summary Assessment (RN) Last Done: 02/08/24 17:18 Coding Level of Care Code 72431 INP/OBS DISCH >30 MIN Diagnoses Encephalopathy G93.40 Diabetes E11.9 Dementia F03.90 Hypothyroidism E03.9 HTN (hypertension) I10
[2024-02-08] MEDS: cefTRIAXone SODIUM 1,000 MG/50 ML BAG IV STA (16:29)
[2024-02-08] MEDS ORDERED: CEFDINIR 300 MG CAP PO SCH (21:00)
--- NOTE | 2024-02-08 21:19 | Electrocardiogram Report ---
Test Reason : Blood Pressure : / mmHG Vent. Rate : 070 BPM Atrial Rate : 070 BPM P-R Int : 228 ms QRS Dur : 142 ms QT Int : 450 ms P-R-T Axes : 043 -07 100 degrees QTc Int : 486 ms Sinus rhythm with 1st degree A-V block Left bundle branch block Abnormal ECG When compared with ECG of 18-APR-2023 17:34, No significant change was found Confirmed by Miguel Rivera ([id number]) on 02/08/2024 9:19:02 PM Referred By: [facility] Confirmed By:Miguel Rivera
== END 2024-02-08 20:00 | disposition home or self-care (01) | DRG 689 ==
LOC: ED 11:34 → SUATTDRO 14:24 → INTOOBSV 14:24 → EDINP 14:24 → 2N 22:28

== ENCOUNTER 2024-02-16 12:53 | Observation (INO) ==
[2024-02-16 13:23] LABS: iSTAT Creatinine 1.2 mg/dl (0.6-1.3); iSTAT Hemoglobin 11.6 g/dl (12.0-16.0); iSTAT Ionized Calcium 1.23 mmol/l (1.12-1.32); iSTAT Potassium 4.2 mmol/L (3.3-5.0)
[2024-02-16 14:00] LABS: Basophils # (auto) 0.08 K/uL (0.00-0.20); Basophils % (auto) 1.4 %; Eosinophils # (auto) 0.16 K/uL (0.00-0.50); Eosinophils % (auto) 2.8 %; Hematocrit (blood only) 36.5 % (37.0-47.0); Hemoglobin 11.6 g/dl (12.0-16.0); Immature Granulocytes # (auto) 0.01 K/uL (0.01-0.20); Immature Granulocytes % (auto) 0.2 %; Lymphocytes % (auto) 38.4 %; Mean Corpuscular Hemoglobin 27.4 pg (25.0-34.0); Mean Corpuscular Hgb Conc 31.8 g/dL (32.0-36.0); Mean Corpuscular Volume 86.1 fL (80.0-100.0); Mean Platelet Volume 10.1 fL (9.4-12.4); Monocytes # (auto) 0.69 K/uL (0.11-0.59); Neutrophils # (auto) 2.59 K/uL (1.40-6.50); Neutrophils % (auto) 45.2 %; Platelet Count 249 K/uL (130-400); RDW Coefficient of Variation 14.9 % (11.5-14.5); RDW Standard Deviation 47.1 fL (36.4-46.3); Red Blood Count 4.24 M/uL (4.20-5.40); White Blood Count 5.73 K/ul (4.8-10.8)
[2024-02-16 14:04] LABS: Partial Thromboplastin Ratio 0.9; Partial Thromboplastin Time 24 Seconds (21-31); Prothrombin Time 10.8 Seconds (9.0-12.0)
--- NOTE | 2024-02-16 14:06 | CT Scan Report ---
CT head/brain wo con CLINICAL HISTORY: 78 years-old Female with ams. Acutely altered mental status TECHNIQUE: Multiple axial CT images of the head were obtained without contrast. A dose lowering tech nique was utilized adhering to the principles of ALARA. CT DOSE: 547.75 mGy.cm COMPARISON: 02/05/2024 FINDINGS: No acute intracranial hemorrhage, midline shift, intracranial mass, hydrocephalus, territorial ischem ia or abnormal extra-axial collection. Involutional changes with chronic microvascular ischemic disea se. Bilateral parietal lobe and bilateral cerebellar encephalomalacia related to chronic infarcts. Th e calvarium is intact. The paranasal sinuses, mastoid air cells, and middle ear cavities are clear. IMPRESSION: Chronic infarcts as above without acute intracranial abnormality identified. ACT 112: Negative or not required by law. The above report was generated using voice recognition software. It may contain grammatical, syntax o r spelling errors. Electronically signed by: Noah Fletcher M.D. 02/16/2024 2:05 PM
[2024-02-16 14:22] LABS: Albumin Level 3.8 gm/dl (3.4-5.0); BUN Creatinine Ratio 11.9 (10-20); Bilirubin Direct 0.1 mg/dl (0-0.2); Bilirubin,Total 0.5 mg/dl (0.2-1.0); Calcium 9.7 mg/dl (8.6-10.3); Creatinine Clr Calc Pharmacy 47.6 ml/min; Est GFR (African American) 50.4 ml/min; Est GFR (Non-African American) 43.5 ml/min; Magnesium 1.9 mg/dl (1.7-2.4); Potassium 4.2 mmol/L (3.5-5.1); Total Protein 6.6 gm/dl (6.0-8.3)
[2024-02-16 14:28] LABS: Troponin I High Sensitivity 12.2 pg/ml (0-14)
--- NOTE | 2024-02-16 14:38 | XRay Report ---
SINGLE VIEW CHEST CLINICAL HISTORY: Sepsis FINDINGS: An AP, portable, upright chest radiograph is compared to study dated 02/05/2024. Correlation is made with chest CT dated 01/14/2023. The heart is enlarged noting atherosclerotic calcification of the thoracic aorta. The pulmonary vasculature is noncontrast. Chronic interstitial thickening is edyta lar to previous. There is mild bibasilar scarring/atelectasis. The lungs and pleural spaces are other palacios clear. No pneumothorax is seen. The skeletal structures are osteopenic. The bony thorax is gross ly intact. IMPRESSION: Cardiomegaly with no active disease in the chest. ACT 112: Negative or not required by law. Electronically signed by: Karri Salas M.D. 02/16/2024 2:37 PM
--- NOTE | 2024-02-16 15:21 | Electrocardiogram Report ---
Test Reason : Blood Pressure : / mmHG Vent. Rate : 069 BPM Atrial Rate : 069 BPM P-R Int : 210 ms QRS Dur : 142 ms QT Int : 456 ms P-R-T Axes : 048 029 163 degrees QTc Int : 488 ms Sinus rhythm with 1st degree A-V block with occasional Premature ventricular complexes Left bundle branch block Abnormal ECG When compared with ECG of 05-FEB-2024 11:40, Premature ventricular complexes are now Present Confirmed by Russel Ruggiero ([id number]) on 02/16/2024 3:20:28 PM Referred By: Bonifacio Ibanez Confirmed By:Boogie Ruggiero
[2024-02-16 15:32] LABS: Appearance Urine Clear (Clear); Bilirubin Urine Negative (Negative); Blood Urine Negative (Negative); Color Urine Yellow; Glucose Urine UA Negative (Negative); Ketones Urine Negative (Negative); Leukocyte Esterase Urine Negative (Negative); Nitrite Urine Negative (Negative); Protein Urine Negative (Negative); Specific Gravity Urine 1.012 (1.000-1.030); Urobilinogen Urine Negative (Negative)
[2024-02-16 15:40] LABS: HCO3 VBG 27 mmol/L; Oxygen Saturation VBG < 60.0 %; PCO2 VBG 44 mmHg (38-50); PO2 VBG 30 mmHg
--- NOTE | 2024-02-16 15:42 | History & Physical Report ---
Date of Service February 16, 2024 Assessment & Plan (1) Encephalopathy: Plan: Mental status similar to with UTIs with the patient has no UTI symptoms and UA appears clear on admission DDx includes early infectious, dehydration, waxing and waning delirium with underlying cognitive decline with increased risk due to old CVA deficits. Was to discharge patient home as she appeared extremely well back to her baseline however lactate while improving had not completely cleared. Due to elevated lactate which had not cleared patient recommended for overnight observation, following blood cultures for 12 to 24 hours, and morning reassessment. Follow fever curve. Repeat labs tomorrow 24 hours of empiric antibiotics continued if no signs of ongoing infection will discontinue these Procalcitonin was normal She was not hypoglycemic, BSG 140s in the ER Hold hydroxyzine (2) Abnormal brain MRI: Plan: No acute changes on CT (3) Hypothyroidism: Plan: TSH pending, continue Synthroid (4) Lactate blood increased: Plan: As noted (5) Diabetes: Plan: Goal BSG [id number] Continue glargine 10 units, SSI DM 2 diet Plan Chronic stable issues: Prior CVAsno new neurologic deficits. Continue antiplatelets. Continue carvedilol Anxiety/depression: Continue SSRI History of Present Illness Primary Care Provider: Bonifacio Ibanez DO Deanna is an 78-year-old female with a past medical history of vascular dementia, seizure disorder as complication of prior CVA, recurrent UTIs, and diabetes, hypertension, heart failure with preserved ejection fraction, hyperlipidemia, hypothyroidism who presents with sedation and confusion similar to prior UTI infections. She was last discharged 02/08/2024 after admission for UTI and was to complete 4 additional days of cefdinir. Patient was pending follow-up with urology for frequent UTIs and was considered for methenamine versus anatomic interventions due to her frequent UTIs. Urine cultures at that time were E. coli with additional resistances but sensitive to cefepime/Rocephin/ertapenem/ daptomycin/Zosyn/Bactrim. She presents with increased confusion. She does not have a leukocytosis. She does not have an elevated procalcitonin. Her lactate is elevated at 3.5. Her urine is negative. CT of the head is without acute findings, chronic infarcts are redemonstrated. Chest x-ray is clear. Reportedly unresponsive int he residential. Mentation greatly improved in the ER. A&Ox3 in the ER.No white count or procal. Currently seen at bedside with patient. Notes she had an episode similar to prior UTIs where she was very difficult to arouse this morning. After her past discharge she did seem to recover completely back to her normal state of health. She has not had any fever, chills, sweats no abdominal pain no dysuria no polyuria. No lightheadedness or dizziness. At time of bedside visit she feels completely back to her normal self. Allergies Allergy/AdvReac Type Severity Reaction Status Date / Time aspirin Allergy Severe Hives Verified 02/05/24 14:42 NSAIDS (Non-Steroidal Allergy Intermediate Hives Verified 08/20/23 11:15 Anti-Inflamma Penicillins Allergy Intermediate Hives Verified 02/08/24 15:46 fenofibrate Allergy Unknown ON PT MED Verified 08/20/23 11:15 LIST naproxen Allergy Unknown Unknown - Unverified 02/05/24 14:42 [facility] Med List [facility] propoxyphene Allergy Unknown ON PT MED Verified 08/20/23 11:15 LIST vancomycin Allergy Redness of Verified 08/20/23 11:32 Skin Home Medications Medication Instructions Recorded Confirmed Type carvedilol 3.125 mg tablet 3.125 mg PO BID 01/29/22 02/16/24 History paroxetine HCl 20 mg tablet 20 mg PO HS 01/29/22 02/16/24 History rosuvastatin 20 mg tablet 20 mg PO HS 01/29/22 02/16/24 History metformin 1,000 mg tablet 1,000 mg PO QAM 01/14/23 02/16/24 History cholecalciferol (vitamin D3) 25 25 mcg PO DAILY 03/17/23 02/16/24 History mcg (1,000 unit) capsule (Vitamin D3) levothyroxine 25 mcg tablet 25 mcg PO QAM 03/17/23 02/16/24 History (Synthroid) multivitamin with minerals-folic 1 tab PO QAM 03/17/23 02/16/24 History acid 200 mcg chewable tablet (Adult Multivitamin Gummies) magnesium oxide 400 mg (241.3 mg 400 mg PO BID #0 tabs 03/20/23 02/16/24 Rx magnesium) tablet clopidogrel 75 mg tablet 75 mg PO QAM #30 tabs 04/28/23 02/16/24 Rx furosemide 20 mg tablet 40 mg PO QAM 08/18/23 02/16/24 History acetaminophen 325 mg tablet 650 mg PO Q4H PRN Pain/Fever 02/05/24 02/16/24 History dextromethorphan-guaifenesin ER 60 1 tab PO BID PRN Cough/Congestion 02/05/24 02/16/24 History mg-1,200 mg tab,extend release,12hr (Mucinex DM) diclofenac sodium 1 % topical gel 2 g topical QID PRN Pain 02/05/24 02/16/24 History donepezil 5 mg tablet 5 mg PO HS 02/05/24 02/16/24 History emollient combination no.92 1 applic topical BID Dry skin - 02/05/24 02/16/24 History (Lubriderm Daily Moisture lotion) Legs hydroxyzine HCl 25 mg tablet 25 mg PO TID PRN Itching 02/05/24 02/16/24 History insulin glargine 100 unit/mL (3 10 unit subcut HS 02/05/24 02/16/24 History mL) subcutaneous pen (Lantus Solostar U-100 Insulin) loperamide 2 mg capsule 4 mg PO DAILY PRN Diarrhea 02/05/24 02/16/24 History magnesium hydroxide 400 mg/5 mL 2,400 mg PO UD PRN Constipation 02/05/24 02/16/24 History oral suspension (Milk of Magnesia) omeprazole 40 mg capsule,delayed 40 mg PO QAM 02/05/24 02/16/24 History release potassium chloride 20 mEq 20 meq PO DAILY 02/05/24 02/16/24 History tablet,extended release(part/cryst) thiamine mononitrate (vit B1) 100 100 mg PO QAM 02/05/24 02/16/24 History mg tablet 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 Dementia Surgical History S/P colonoscopy S/P hysterectomy S/P appendectomy History of back surgery Status post right knee replacement No pertinent past surgical history Social History Smoking Status: Never smoker Second Hand Exposure: No; Do You Dip or Chew Tobacco: No; Hx Alcohol Use: No Hx Substance Use: No Preferred Language: [place] Communication Ability: Effective Visual Impairment: No Limitations Hearing Ability: Normal Dispatcher Street Department Required: No Beliefs That Will Affect Care: None marital status: / Current Living Situation: Intermediate Current Living Situation Comment: At [facility] facility current occupational status: retired Feels Safe at Home: Yes Childhood Exposure to Second-Hand Smoke: No Diet: diabetic Dental Care, Regularly: No Physical Activity Frequency: Does not Exercise Seatbelt Use: always Sunscreen Use: No Assistive Devices: Walker Physical Exam Physical Exam: General: A&Ox3. NAD. Cooperative. HEENT: Atraumatic, normocephalic. Pulm: CTAB A&P. -wheezes, -rales, -rhonchi. Symmetrical chest rise. No increased work of breathing. No respiratory distress. Cardiac: RRR, -mrg. Radial pulses intact and symmetrical. Abdominal: Nontender, nondistended, soft. BS present. Results & Data Results & Data Vital Signs (Past 12 Hours) Vital Signs Temp Pulse Pulse Resp BP BP Pulse Ox 02/16/24 13:39 72 02/16/24 13:36 74 20 140/80 98 02/16/24 13:36 98 02/16/24 13:10 68 14 140/80 98 02/16/24 13:00 36.6 C 72 20 140/80 96 O2 Del Method 02/16/24 13:39 02/16/24 13:36 Room Air 02/16/24 13:36 Room Air 02/16/24 13:10 Room Air 02/16/24 13:00 Room Air PG Care Time/CCT Total # of Minutes Spent Total Time Spent with Patient: Total time spent is greater than 50% in coordination of care (as documented) at patient's floor/unit and/or counseling patient: Coding Level of Care Code 88005 INT INP/OBS CARE 2/55MIN Diagnoses Encephalopathy G93.40 Abnormal brain MRI R90.89 Hypothyroidism E03.9 Lactate blood increased R79.89 Diabetes E11.9
[2024-02-16] MEDS: SODIUM CHLORIDE 0.9% 1,000 ML IV SCH (15:48)
[2024-02-16] MEDS: CEFEPIME 2,000 MG/20 ML VIAL IV STA (15:48)
[2024-02-16] MEDS ORDERED: GLUCOSE 10 TAB/TUBE PO PRN (17:21)
[2024-02-16] MEDS ORDERED: GLUCOSE 40% GEL 15 GM TUBE PO PRN (17:21)
[2024-02-16] MEDS ORDERED: GLUCAGON FOR INJ 1 MG VIAL SQ PRN (17:21)
[2024-02-16] MEDS ORDERED: DEXTROSE 50% 50 ML SYRINGE IV PRN (17:21)
[2024-02-16] MEDS ORDERED: CARBOHYDRATES FOR HYPOGLYCEMIA PO PRN (17:21)
--- NOTE | 2024-02-16 18:42 | Emergency Department Note ---
History of Present Illness General Chief complaint: Illness Time Seen by Provider: 02/16/24 13:32 Source: patient and family (Daughter at bedside) History of Present Illness Provider complaint: Altered mental status 78-year-old female with history of dementia presents emergency department for altered mental status. EMS reported that the patient was very confused at her detention. Daughter reports that the patient has chronic UTIs and this is how she usually acts when she is having a UTI. No fevers. No nausea or vomiting. Patient reports no chest pain difficulty breathing headache nausea vomiting diarrhea. Home Medications Medication Instructions Recorded Confirmed Type carvedilol 3.125 mg tablet 3.125 mg PO BID 01/29/22 02/16/24 History paroxetine HCl 20 mg tablet 20 mg PO HS 01/29/22 02/16/24 History rosuvastatin 20 mg tablet 20 mg PO HS 01/29/22 02/16/24 History metformin 1,000 mg tablet 1,000 mg PO QAM 01/14/23 02/16/24 History cholecalciferol (vitamin D3) 25 25 mcg PO DAILY 03/17/23 02/16/24 History mcg (1,000 unit) capsule (Vitamin D3) levothyroxine 25 mcg tablet 25 mcg PO QAM 03/17/23 02/16/24 History (Synthroid) multivitamin with minerals-folic 1 tab PO QAM 03/17/23 02/16/24 History acid 200 mcg chewable tablet (Adult Multivitamin Gummies) magnesium oxide 400 mg (241.3 mg 400 mg PO BID #0 tabs 03/20/23 02/16/24 Rx magnesium) tablet clopidogrel 75 mg tablet 75 mg PO QAM #30 tabs 04/28/23 02/16/24 Rx furosemide 20 mg tablet 40 mg PO QAM 08/18/23 02/16/24 History acetaminophen 325 mg tablet 650 mg PO Q4H PRN Pain/Fever 02/05/24 02/16/24 History dextromethorphan-guaifenesin ER 60 1 tab PO BID PRN Cough/Congestion 02/05/24 02/16/24 History mg-1,200 mg tab,extend release,12hr (Mucinex DM) diclofenac sodium 1 % topical gel 2 g topical QID PRN Pain 02/05/24 02/16/24 History donepezil 5 mg tablet 5 mg PO HS 02/05/24 02/16/24 History emollient combination no.92 1 applic topical BID Dry skin - 02/05/24 02/16/24 History (Lubriderm Daily Moisture lotion) Legs hydroxyzine HCl 25 mg tablet 25 mg PO TID PRN Itching 02/05/24 02/16/24 History insulin glargine 100 unit/mL (3 10 unit subcut HS 02/05/24 02/16/24 History mL) subcutaneous pen (Lantus Solostar U-100 Insulin) loperamide 2 mg capsule 4 mg PO DAILY PRN Diarrhea 02/05/24 02/16/24 History magnesium hydroxide 400 mg/5 mL 2,400 mg PO UD PRN Constipation 02/05/24 02/16/24 History oral suspension (Milk of Magnesia) omeprazole 40 mg capsule,delayed 40 mg PO QAM 02/05/24 02/16/24 History release potassium chloride 20 mEq 20 meq PO DAILY 02/05/24 02/16/24 History tablet,extended release(part/cryst) thiamine mononitrate (vit B1) 100 100 mg PO QAM 02/05/24 02/16/24 History mg tablet Allergies Allergy/AdvReac Type Severity Reaction Status Date / Time aspirin Allergy Severe Hives Verified 02/05/24 14:42 NSAIDS (Non-Steroidal Allergy Intermediate Hives Verified 08/20/23 11:15 Anti-Inflamma Penicillins Allergy Intermediate Hives Verified 02/08/24 15:46 fenofibrate Allergy Unknown ON PT MED Verified 08/20/23 11:15 LIST naproxen Allergy Unknown Unknown - Unverified 02/05/24 14:42 On Med List from [facility] propoxyphene Allergy Unknown ON PT MED Verified 08/20/23 11:15 LIST vancomycin Allergy Redness of Verified 08/20/23 11:32 Skin Past Med/Surg History Problem List (Updated 02/16/24 @ 18:51 by Emmanuel Brenner MD) Sepsis (Acute) Encephalopathy (Acute) UTI (urinary tract infection) (Acute) Lactate blood increased Encephalopathy Recurrent UTI (urinary tract infection) Ascending aorta dilatation Discussion about advance care planning held with family member Palliative care by specialist Confusion Seizure, late effect of stroke Cerebrovascular disease Dementia Hypothyroidism HTN (hypertension) HLD (hyperlipidemia) GERD (gastroesophageal reflux disease) Diabetes CHF (congestive heart failure) UTI (urinary tract infection), uncomplicated Generalized weakness Gait apraxia Stroke 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 Neuropathy Fatigue Hypomagnesemia (Acute) Infarction of kidney (Acute) Bladder spasms Depression Confusion and disorientation Seizure-like activity Hypotension Leg swelling AMS (altered mental status) (Acute) Acute hypotension (Acute) Elevated lactic acid level (Acute) SKY (acute kidney injury) Acute metabolic encephalopathy Morbid obesity Prolonged PTT Cerebrovascular disease Abnormal brain MRI Nonobstructive atherosclerosis of coronary artery LBBB (left bundle branch block) Thoracic aortic aneurysm Bilateral leg edema Medical History Discussion about advance care planning held with family member Palliative care by specialist Confusion Strain of rotator cuff of right shoulder Hypothyroidism CHF (congestive heart failure) Depression Bladder spasms GERD (gastroesophageal reflux disease) No pertinent family history Diabetes HLD (hyperlipidemia) HTN (hypertension) 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 Dementia Surgical History S/P colonoscopy S/P hysterectomy S/P appendectomy History of back surgery Status post right knee replacement No pertinent past surgical history Social History Smoking Status: Never smoker Second Hand Exposure: No; Do You Dip or Chew Tobacco: No; Hx Alcohol Use: No Hx Substance Use: No Preferred Language: Czech Communication Ability: Effective Visual Impairment: No Limitations Hearing Ability: Normal Access Service Representative Required: No Beliefs That Will Affect Care: None marital status: / Current Living Situation: [facility] Current Living Situation Comment: At [facility] facility current occupational status: retired Feels Safe at Home: Yes Childhood Exposure to Second-Hand Smoke: No Diet: diabetic Dental Care, Regularly: No Physical Activity Frequency: Does not Exercise Seatbelt Use: always Sunscreen Use: No Assistive Devices: Walker Physical Exam Vital Signs Vital Signs - 24 hr 02/16/24 13:00 02/16/24 13:10 02/16/24 13:36 Temperature 36.6 C Temperature Source Oral Pulse Rate 72 68 Pulse Rate [Apical] Pulse Rate from SpO2 Sensor Respiratory Rate 20 14 Respiratory Effort / Characteristics Respiratory Depth Normal Blood Pressure 140/80 140/80 Blood Pressure [Right Arm] Blood Pressure Mean 100 100 Blood Pressure Mean [Right Arm] Pulse Oximetry 96 98 98 Oxygen Delivery Method Room Air Room Air Room Air Sepsis Recent Fever Within 48 Hours No Sepsis New/Unexplained Change in Mental Status N/A Sepsis Action Taken by Nursing No Action Required 02/16/24 13:36 02/16/24 13:39 02/16/24 14:30 Temperature Temperature Source Pulse Rate 72 76 Pulse Rate [Apical] 74 Pulse Rate from SpO2 Sensor Respiratory Rate 20 18 Respiratory Effort / Characteristics Non-Labored Respiratory Depth Normal Blood Pressure Blood Pressure [Right Arm] 140/80 Blood Pressure Mean Blood Pressure Mean [Right Arm] 100 Pulse Oximetry 98 Oxygen Delivery Method Room Air Sepsis Recent Fever Within 48 Hours Sepsis New/Unexplained Change in Mental Status Sepsis Action Taken by Nursing 02/16/24 14:45 02/16/24 15:00 02/16/24 15:14 Temperature Temperature Source Pulse Rate 78 79 Pulse Rate [Apical] Pulse Rate from SpO2 Sensor Respiratory Rate 20 18 Respiratory Effort / Characteristics Respiratory Depth Blood Pressure 122/74 Blood Pressure [Right Arm] Blood Pressure Mean 87 Blood Pressure Mean [Right Arm] Pulse Oximetry Oxygen Delivery Method Sepsis Recent Fever Within 48 Hours Sepsis New/Unexplained Change in Mental Status Sepsis Action Taken by Nursing 02/16/24 15:14 02/16/24 15:15 02/16/24 15:30 Temperature Temperature Source Pulse Rate 70 74 Pulse Rate [Apical] Pulse Rate from SpO2 Sensor 71 74 Respiratory Rate 20 16 Respiratory Effort / Characteristics Respiratory Depth Blood Pressure 145/84 H Blood Pressure [Right Arm] Blood Pressure Mean 90 Blood Pressure Mean [Right Arm] Pulse Oximetry 96 95 Oxygen Delivery Method Sepsis Recent Fever Within 48 Hours Sepsis New/Unexplained Change in Mental Status Sepsis Action Taken by Nursing 02/16/24 15:30 02/16/24 15:45 02/16/24 16:00 Temperature Temperature Source Pulse Rate 74 80 Pulse Rate [Apical] Pulse Rate from SpO2 Sensor 76 79 Respiratory Rate 15 20 Respiratory Effort / Characteristics Respiratory Depth Blood Pressure 148/83 H Blood Pressure [Right Arm] Blood Pressure Mean 99 Blood Pressure Mean [Right Arm] Pulse Oximetry 93 96 Oxygen Delivery Method Sepsis Recent Fever Within 48 Hours Sepsis New/Unexplained Change in Mental Status Sepsis Action Taken by Nursing 02/16/24 16:00 02/16/24 16:15 02/16/24 16:30 Temperature Temperature Source Pulse Rate 68 70 73 Pulse Rate [Apical] Pulse Rate from SpO2 Sensor 70 69 70 Respiratory Rate 18 17 17 Respiratory Effort / Characteristics Respiratory Depth Blood Pressure Blood Pressure [Right Arm] Blood Pressure Mean Blood Pressure Mean [Right Arm] Pulse Oximetry 94 94 94 Oxygen Delivery Method Sepsis Recent Fever Within 48 Hours Sepsis New/Unexplained Change in Mental Status Sepsis Action Taken by Nursing 02/16/24 16:30 02/16/24 16:45 02/16/24 17:00 Temperature Temperature Source Pulse Rate 72 Pulse Rate [Apical] Pulse Rate from SpO2 Sensor Respiratory Rate 13 Respiratory Effort / Characteristics Respiratory Depth Blood Pressure 165/84 H 144/83 H Blood Pressure [Right Arm] Blood Pressure Mean 108 103 Blood Pressure Mean [Right Arm] Pulse Oximetry Oxygen Delivery Method Sepsis Recent Fever Within 48 Hours Sepsis New/Unexplained Change in Mental Status Sepsis Action Taken by Nursing 02/16/24 17:00 02/16/24 17:15 Temperature Temperature Source Pulse Rate 73 73 Pulse Rate [Apical] Pulse Rate from SpO2 Sensor Respiratory Rate 15 22 Respiratory Effort / Characteristics Respiratory Depth Blood Pressure Blood Pressure [Right Arm] Blood Pressure Mean Blood Pressure Mean [Right Arm] Pulse Oximetry Oxygen Delivery Method Sepsis Recent Fever Within 48 Hours Sepsis New/Unexplained Change in Mental Status Sepsis Action Taken by Nursing Physical Exam GENERAL: She appears well-developed and well-nourished. She does not appear distressed. HENT: Exam performed. -Head: Normocephalic and atraumatic. -Right Ear: External ear normal. No mastoid erythema -Left Ear: External ear normal. No mastoid erythema -Mouth/Throat: The oropharynx is clear and moist. No trismus in the jaw. No dental abscesses or uvula swelling. No oropharyngeal exudate or tonsillar abscesses. EYES: Conjunctivae and EOM are normal. Pupils are equal, round, and reactive to light. Right eye exhibits no discharge. Left eye exhibits no discharge. No scleral icterus. NECK: Normal range of motion. Neck supple. No JVD present. CV: Normal rate, regular rhythm, normal heart sounds and intact distal pulses. There is no peripheral edema. Palpable radial pulses bue. PULM/CHEST: Effort normal and breath sounds normal. No respiratory distress. No stridor. She has no wheezes. She has no rales. ABD: The abdomen is soft.There is no tenderness. There is no rebound, no guarding. MUSC/SKEL: Normal range of motion. There is no peripheral edema, tenderness or deformity. NEURO: She has normal strength. No cranial nerve deficit or sensory deficit. Coordination and gait normal. GCS eye subscore is 4. GCS verbal subscore is 5. GCS motor subscore is 6. Cerebellar tests wnl. Course Course 1332: The patient was evaluated in room B5. A complete history and physical exam was performed Cardiac monitoring: An order was placed for continuous cardiac monitoring. The monitor shows a rate of 70 with sinus rhythm interpreted by ia 1534: Vital signs stable. Labs within normal limits with exception of a lactic acid of 3.5. 30 cc/kg bolus ordered for the patient. Cefepime ordered for the patient based off her previous urine cultures being sensitive to cefepime. Patient be admitted to the [facility] team. Discussed case with [facility] Dr. Baer and he stated he would see if the patient's repeat lactic normalized after 2 L normal saline bolus and determine if the patient truly needs to be admitted. 1708: Vital signs stable. Repeat lactic acid status post 2 L normal saline bolus 2.2. Dr. Baer made aware and will admit the patient to his service. Administered Medications Discontinued Medications Sodium Chloride (Nss) 1,000 mls @ 999 mls/hr IV .[id number] ROSANNA Stop: 02/16/24 17:30 Last Admin: 02/16/24 17:12 Dose: 999 mls/hr Documented By: Infusion: 02/16/24 16:49 Dose: Infused Documented By: Admin: 02/16/24 15:48 Dose: 999 mls/hr Documented By: LAZARA Cefepime HCl (Maxipime) 2,000 mg in 20 mls @ 5 mls/min IV NOW STA; Protocol Stop: 02/16/24 15:24 Last Admin: 02/16/24 15:48 Dose: 5 mls/min Documented By: LAZARA Medical Decision Making Laboratory Data Attestation: I reviewed the patient's lab results. 02/16/24 13:00 02/16/24 13:00 Lab Results 02/16/24 02/16/24 02/16/24 Range/Units 12:56 13:00 13:07 WBC 5.73 (4.8-10.8) K/ul RBC 4.24 (4.20-5.40) M/uL Hgb 11.6 L (12.0-16.0) g/dl POC Hgb 11.6 L (12.0-16.0) g/dl Hct 36.5 L (37.0-47.0) % POC Hct 34 L (37-47) % MCV 86.1 (80.0-100.0) fL MCH 27.4 (25.0-34.0) pg MCHC 31.8 L (32.0-36.0) g/dL RDW Std Deviation 47.1 H (36.4-46.3) fL RDW Coeff of Sam 14.9 H (11.5-14.5) % Plt Count 249 (130-400) K/uL MPV 10.1 (9.4-12.4) fL Immature Gran % (Auto) 0.2 % Neut % (Auto) 45.2 % Lymph % (Auto) 38.4 % [place] % (Auto) 12.0 % Eos % (Auto) 2.8 % Baso % (Auto) 1.4 % Neut # (Auto) 2.59 (1.40-6.50) K/uL Lymph # (Auto) 2.20 (1.20-3.40) K/uL [place] # (Auto) 0.69 H (0.11-0.59) K/uL Eos # (Auto) 0.16 (0.00-0.50) K/uL Baso # (Auto) 0.08 (0.00-0.20) K/uL Immature Gran # (Auto) 0.01 (0.01-0.20) K/uL PT 10.8 (9.0-12.0) Seconds INR 1.0 (0.9-1.1) APTT 24 (21-31) Seconds PTT Ratio 0.9 VBG pH (7.36-7.41) VBG pCO2 (38-50) mmHg VBG pO2 mmHg VBG HCO3 mmol/L VBG O2 Saturation % VBG Base Excess mEq/L POC Sodium 140 (135-144) mmol/L Sodium 141 (136-145) mmol/L POC Potassium 4.2 (3.3-5.0) mmol/L Potassium 4.2 (3.5-5.1) mmol/L POC Chloride 103 (101-112) mmol/L Chloride 105 (98-107) mmol/L Carbon Dioxide 28 (21-32) mmol/L POC Total CO2 26 (24-31) mmol/L Anion Gap 8 (3-11) POC Anion Gap 17.0 (16-25) mmol/L POC BUN 14 (7-18) mg/dl BUN 14 (6-23) mg/dl Creatinine 1.18 (0.6-1.2) mg/dl POC Creatinine 1.2 (0.6-1.3) mg/dl Est Cr Clr Drug Dosing 47.6 ml/min Est GFR ( Amer) 50.4 ml/min Est GFR (Non-Af Amer) 43.5 ml/min BUN/Creatinine Ratio 11.9 (10-20) Glucose 140 H (70-99(Fasting)) mg/dl POC Glucose 137 H (70-99) mg/dl POC Glucose (other) 141 H (70-99) mg/dl Lactate (0.4-2.0) mmol/L Calcium 9.7 (8.6-10.3) mg/dl POC Ioniz Calcium [place] 1.23 (1.12-1.32) mmol/l Magnesium 1.9 (1.7-2.4) mg/dl Total Bilirubin 0.5 (0.2-1.0) mg/dl Direct Bilirubin 0.1 (0-0.2) mg/dl AST 21 (13-39) U/L ALT 15 (7-52) U/L Alkaline Phosphatase 59 (34-104) U/L Troponin I High Sens 12.2 (0-14) pg/ml Total Protein 6.6 (6.0-8.3) gm/dl Albumin 3.8 (3.4-5.0) gm/dl Procalcitonin < 0.02 (0-0.5) ng/ml Urine Color Urine Appearance (Clear) Urine pH (4.5-7.5) Ur Specific [place] (1.000-1.030) Urine Protein (Negative) Urine Glucose (UA) (Negative) Urine Ketones (Negative) Urine Blood (Negative) Urine Nitrite (Negative) Urine Bilirubin (Negative) Urine Urobilinogen (Negative) Ur Leukocyte Esterase (Negative) 02/16/24 02/16/24 02/16/24 Range/Units 14:40 15:00 16:53 WBC (4.8-10.8) K/ul RBC (4.20-5.40) M/uL Hgb (12.0-16.0) g/dl POC Hgb (12.0-16.0) g/dl Hct (37.0-47.0) % POC Hct (37-47) % MCV (80.0-100.0) fL MCH (25.0-34.0) pg MCHC (32.0-36.0) g/dL RDW Std Deviation (36.4-46.3) fL RDW Coeff of Sam (11.5-14.5) % Plt Count (130-400) K/uL MPV (9.4-12.4) fL Immature Gran % (Auto) % Neut % (Auto) % Lymph % (Auto) % [place] % (Auto) % Eos % (Auto) % Baso % (Auto) % Neut # (Auto) (1.40-6.50) K/uL Lymph # (Auto) (1.20-3.40) K/uL [place] # (Auto) (0.11-0.59) K/uL Eos # (Auto) (0.00-0.50) K/uL Baso # (Auto) (0.00-0.20) K/uL Immature Gran # (Auto) (0.01-0.20) K/uL PT (9.0-12.0) Seconds INR (0.9-1.1) APTT (21-31) Seconds PTT Ratio VBG pH 7.40 (7.36-7.41) VBG pCO2 44 (38-50) mmHg VBG pO2 30 mmHg VBG HCO3 27 mmol/L VBG O2 Saturation < 60.0 % VBG Base Excess 2.0 mEq/L POC Sodium (135-144) mmol/L Sodium (136-145) mmol/L POC Potassium (3.3-5.0) mmol/L Potassium (3.5-5.1) mmol/L POC Chloride (101-112) mmol/L Chloride (98-107) mmol/L Carbon Dioxide (21-32) mmol/L POC Total CO2 (24-31) mmol/L Anion Gap (3-11) POC Anion Gap (16-25) mmol/L POC BUN (7-18) mg/dl BUN (6-23) mg/dl Creatinine (0.6-1.2) mg/dl POC Creatinine (0.6-1.3) mg/dl Est Cr Clr Drug Dosing ml/min Est GFR ( Amer) ml/min Est GFR (Non-Af Amer) ml/min BUN/Creatinine Ratio (10-20) Glucose (70-99(Fasting)) mg/dl POC Glucose (70-99) mg/dl POC Glucose (other) (70-99) mg/dl Lactate 3.5 H* 2.2 H* (0.4-2.0) mmol/L Calcium (8.6-10.3) mg/dl POC Ioniz Calcium [place] (1.12-1.32) mmol/l Magnesium (1.7-2.4) mg/dl Total Bilirubin (0.2-1.0) mg/dl Direct Bilirubin (0-0.2) mg/dl AST (13-39) U/L ALT (7-52) U/L Alkaline Phosphatase (34-104) U/L Troponin I High Sens (0-14) pg/ml Total Protein (6.0-8.3) gm/dl Albumin (3.4-5.0) gm/dl Procalcitonin (0-0.5) ng/ml Urine Color Yellow Urine Appearance Clear (Clear) Urine pH 6.0 (4.5-7.5) Ur Specific [place] 1.012 (1.000-1.030) Urine Protein Negative (Negative) Urine Glucose (UA) Negative (Negative) Urine Ketones Negative (Negative) Urine Blood Negative (Negative) Urine Nitrite Negative (Negative) Urine Bilirubin Negative (Negative) Urine Urobilinogen Negative (Negative) Ur Leukocyte Esterase Negative (Negative) Imaging Data Radiologist's Impression: Chest X-Ray 02/16/24 13:32 SINGLE VIEW CHEST CLINICAL HISTORY: Sepsis FINDINGS: An AP, portable, upright chest radiograph is compared to study dated 02/05/2024. Correlation is made with chest CT dated 01/14/2023. The heart is enlarged noting atherosclerotic calcification of the thoracic aorta. The pulmonary vasculature is noncontrast. Chronic interstitial thickening is similar to previous. There is mild bibasilar scarring/atelectasis. The lungs and pleural spaces are otherwise clear. No pneumothorax is seen. The skeletal structures are osteopenic. The bony thorax is grossly intact. IMPRESSION: Cardiomegaly with no active disease in the chest. ACT 112: Negative or not required by law. Electronically signed by: Karri Salas M.D. 02/16/2024 2:[address] 02/16/24 13:32 CT head/brain wo con CLINICAL HISTORY: 78 years-old Female with ams. Acutely altered mental status TECHNIQUE: Multiple axial CT images of the head were obtained without contrast. A dose lowering technique was utilized adhering to the principles of ALARA. CT DOSE: 547.75 mGy.cm COMPARISON: 02/05/2024 FINDINGS: No acute intracranial hemorrhage, midline shift, intracranial mass, hydrocephalus, territorial ischemia or abnormal extra-axial collection. Involutional changes with chronic microvascular ischemic disease. Bilateral parietal lobe and bilateral cerebellar encephalomalacia related to chronic infarcts. The calvarium is intact. The paranasal sinuses, mastoid air cells, and middle ear cavities are clear. IMPRESSION: Chronic infarcts as above without acute intracranial abnormality identified. ACT 112: Negative or not required by law. The above report was generated using voice recognition software. It may contain grammatical, syntax or spelling errors. Electronically signed by: Noah Fletcher M.D. 02/16/2024 2:05 PM ECG Data Attestation: I personally reviewed and interpreted this ECG as follows: Indication: + altered mental status Rate (beats per minute): 69 Rhythm: + normal sinus ECG Intervals/blocks: + First degree AV block and + Left bundle branch block Additional Comments: HI 210 QRS [address] [facility] Narrative 1332: The patient was evaluated in room B5. A complete history and physical exam was performed Cardiac monitoring: An order was placed for continuous cardiac monitoring. The monitor shows a rate of 70 with sinus rhythm interpreted by me 1534: Vital signs stable. Labs within normal limits with exception of a lactic acid of 3.5. 30 cc/kg bolus ordered for the patient. Cefepime ordered for the patient based off her previous urine cultures being sensitive to cefepime. Patient be admitted to the [facility] team. Discussed case with [facility] Dr. Baer and he stated he would see if the patient's repeat lactic normalized after 2 L normal saline bolus and determine if the patient truly needs to be admitted. 1708: Vital signs stable. Repeat lactic acid status post 2 L normal saline bolus 2.2. Dr. Baer made aware and will admit the patient to his service. Impression & Plan Sepsis Discharge Plan Visit Data Chief Complaint: Illness ED Provider: Emmanuel Brenner Discharge Problem: Sepsis Patient Disposition: Admitted As Inpatient Discharge Instructions Interventions: ED Discharge Assessment Last Done: 02/16/24 17:56 Discharge Problem: Sepsis Qualifiers: Sepsis type: sepsis due to unspecified organism Severe sepsis acute organ dysfunction type: unspecified Severe sepsis shock status: without septic shock
[2024-02-16] MEDS: INSULIN ASPART PER UNIT CHARGE SC SCH (20:42)
[2024-02-16] MEDS: ROSUVASTATIN CALCIUM 20 MG TAB PO SCH (21:56)
[2024-02-16] MEDS: PARoxetine HCL 20 MG TAB PO SCH (21:56)
[2024-02-16] MEDS: MAGNESIUM OXIDE 400 MG TAB PO SCH (21:56)
[2024-02-16] MEDS: carvediloL 3.125 MG TAB PO SCH (21:56)
[2024-02-16] MEDS: DONEPEZIL HCL 5 MG TAB PO SCH (21:56)
[2024-02-16] MEDS: cefTRIAXone SODIUM 1,000 MG/50 ML BAG IV ONE (22:43)
[2024-02-17] MEDS: LEVOTHYROXINE SODIUM 25 MCG TABLET PO SCH (06:01)
[2024-02-17 07:29] LABS: Basophils % (auto) 1.7 %; Eosinophils # (auto) 0.29 K/uL (0.00-0.50); Hematocrit (blood only) 33.4 % (37.0-47.0); Hemoglobin 10.9 g/dl (12.0-16.0); Immature Granulocytes # (auto) 0.01 K/uL (0.01-0.20); Immature Granulocytes % (auto) 0.2 %; Mean Corpuscular Hemoglobin 27.9 pg (25.0-34.0); Mean Corpuscular Hgb Conc 32.6 g/dL (32.0-36.0); Mean Corpuscular Volume 85.6 fL (80.0-100.0); Mean Platelet Volume 10.2 fL (9.4-12.4); Monocytes # (auto) 0.77 K/uL (0.11-0.59); Monocytes % (auto) 13.3 %; Neutrophils # (auto) 2.42 K/uL (1.40-6.50); Neutrophils % (auto) 41.8 %; Platelet Count 231 K/uL (130-400); RDW Coefficient of Variation 15.1 % (11.5-14.5); RDW Standard Deviation 47.2 fL (36.4-46.3); White Blood Count 5.79 K/ul (4.8-10.8)
[2024-02-17 07:55] LABS: BUN Creatinine Ratio 14.9 (10-20); Creatinine Clr Calc Pharmacy 55.3 ml/min; Est GFR (African American) 60.9 ml/min; Est GFR (Non-African American) 52.5 ml/min
--- NOTE | 2024-02-17 08:21 | Hospitalist Progress Note ---
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 Was to discharge patient home as she appeared extremely well back to her baseline however lactate while improving had not completely cleared. Due to elevated lactate which had not cleared patient recommended for overnight observation, following blood cultures for 12 to 24 hours, and morning reassessment. Follow fever curve. Repeat labs tomorrow 24 hours of empiric antibiotics continued if no signs of ongoing infection will discontinue these Procalcitonin was normal She was not hypoglycemic, BSG 140s in the ER Hold hydroxyzine 02/16 Was given Cefepime/Ceftriaxone in ER, will continue for now - Repeat UA w/o evidence for bacteria, noting she was dc 02/07 with additional 4 days of cefdinir Blood cultures pending -- 10/09 bottles with gram positive cocci in clusters, PCR staph epidermidis Patient looking/feeling great. Suspect contaminant but continued Rocephin IV for now and monitor repeat cultures/ensure prior without further growth Patient from [facility], will consult PT to ensure able to return but patient and family hoping to return to such Of note, is on lasix 40mg PO daily appears which has not been continued. Will monitor repeat CXR (negative on admission but prior w/ reports of congestion -- on exam, no cough/remains on RA but diminished in the bases and with LE edema) --> was ordered 2L IVF on admission Monitor overnight, plan for dc back to [facility] tomorrow. CM following/family can transport (2) Abnormal brain MRI: Plan: No acute changes on CT, continues on plavix daily also on thiamine 100mg PO daily, appears level in 2022 low & was placed on supplementation at that time, continued (3) Hypothyroidism: Plan: TSH wnl 3.2, remains on Synthroid 25mcg (4) Lactate blood increased: Plan: As noted, improved on repeat (5) Diabetes: Plan: Goal BSG [id number] Continue glargine 10 units, SSI DM 2 diet Chronic stable issues: Prior CVAsno new neurologic deficits. Continue antiplatelets. Continue carvedilol Anxiety/depression: Continue SSRI Plan continued inpatient stay but planning for dc back to [facility] in AM if blood cultures remaining NGTD/no issues overnight Admission and Anticipated Discharge Date Admission Date: February 16, 2024 Supervising Physician Co-Signing Physician Notes The patient was not seen by me. The chart was reviewed. Case discussed with INEZ Cabrera. Agree with assessment and plan Subjective Eval this afternoon, sitting up in chair, no acute distress. Blood cultures resulted 1/4 bottles and discussed likely contaminant Patient is alert/oriented to person/knows in hospital, year 2023. Reports lives at [facility] and would like to return. Discuses repeating cultures and continued rocephin but if negative will plan to dc back to [facility] in AM. No fever/chills, chest pain, shortness of breath, abdominal pain reported. Questions/concerns addressed at this time. Physical Exam Physical Exam: General: 78yo female sitting up in chair, eating lunch, NAD Head atraumatic, normocephalic, mmm, trachea midline Resp; even/unlabored, no w/c/r, on room air CV: RRR, no significant m/r/g, baseline LE edema, calves nontender GI: +BS, soft/NT : no candelario MSK/Neuro: nonfocal , answering questions appropriately, no slurred speech Psych: Alert, oriented to person/place/year, cooperative with exam Results & Data Results & Data Vital Signs (Past 12 Hours) Vital Signs Temp Pulse Pulse Resp BP BP Pulse Ox 02/17/24 07:17 36.7 C 73 18 136/79 93 02/16/24 21:00 02/16/24 21:00 36.4 C L 84 16 162/74 H 94 O2 Del Method 02/17/24 07:17 02/16/24 21:00 Room Air 02/16/24 21:00 Room Air Laboratory Results 02/17/24 02/17/24 02/16/24 Range/Units 07:32 05:54 19:01 WBC 5.79 (4.8-10.8) K/ul RBC 3.90 L (4.20-5.40) M/uL Hgb 10.9 L (12.0-16.0) g/dl POC Hgb (12.0-16.0) g/dl Hct 33.4 L (37.0-47.0) % POC Hct (37-47) % MCV 85.6 (80.0-100.0) fL MCH 27.9 (25.0-34.0) pg MCHC 32.6 (32.0-36.0) g/dL RDW Std Deviation 47.2 H (36.4-46.3) fL RDW Coeff of Sam 15.1 H (11.5-14.5) % Plt Count 231 (130-400) K/uL MPV 10.2 (9.4-12.4) fL Immature Gran % (Auto) 0.2 % Neut % (Auto) 41.8 % Lymph % (Auto) 38.0 % Parmer % (Auto) 13.3 % Eos % (Auto) 5.0 % Baso % (Auto) 1.7 % Neut # (Auto) 2.42 (1.40-6.50) K/uL Lymph # (Auto) 2.20 (1.20-3.40) K/uL Parmer # (Auto) 0.77 H (0.11-0.59) K/uL Eos # (Auto) 0.29 (0.00-0.50) K/uL Baso # (Auto) 0.10 (0.00-0.20) K/uL Immature Gran # (Auto) 0.01 (0.01-0.20) K/uL PT (9.0-12.0) Seconds INR (0.9-1.1) APTT (21-31) Seconds PTT Ratio VBG pH (7.36-7.41) VBG pCO2 (38-50) mmHg VBG pO2 mmHg VBG HCO3 mmol/L VBG O2 Saturation % VBG Base Excess mEq/L POC Sodium (135-144) mmol/L Sodium 140 (136-145) mmol/L POC Potassium (3.3-5.0) mmol/L Potassium 4.0 (3.5-5.1) mmol/L POC Chloride (101-112) mmol/L Chloride 108 H (98-107) mmol/L Carbon Dioxide 23 (21-32) mmol/L POC Total CO2 (24-31) mmol/L Anion Gap 9 (3-11) POC Anion Gap (16-25) mmol/L POC BUN (7-18) mg/dl BUN 15 (6-23) mg/dl Creatinine 1.01 (0.6-1.2) mg/dl POC Creatinine (0.6-1.3) mg/dl Est Cr Clr Drug Dosing 55.3 ml/min Est GFR ( Amer) 60.9 ml/min Est GFR (Non-Af Amer) 52.5 ml/min BUN/Creatinine Ratio 14.9 (10-20) Glucose 154 H (70-99(Fasting)) mg/dl POC Glucose 168 H (70-99) mg/dl POC Glucose (other) (70-99) mg/dl Lactate 2.2 H* (0.4-2.0) mmol/L Calcium 9.0 (8.6-10.3) mg/dl POC Ioniz Calcium Gudelia (1.12-1.32) mmol/l Magnesium (1.7-2.4) mg/dl Total Bilirubin (0.2-1.0) mg/dl Direct Bilirubin (0-0.2) mg/dl AST (13-39) U/L ALT (7-52) U/L Alkaline Phosphatase (34-104) U/L Troponin I High Sens (0-14) pg/ml Total Protein (6.0-8.3) gm/dl Albumin (3.4-5.0) gm/dl Procalcitonin (0-0.5) ng/ml Urine Color Urine Appearance (Clear) Urine pH (4.5-7.5) Ur Specific Penitas (1.000-1.030) Urine Protein (Negative) Urine Glucose (UA) (Negative) Urine Ketones (Negative) Urine Blood (Negative) Urine Nitrite (Negative) Urine Bilirubin (Negative) Urine Urobilinogen (Negative) Ur Leukocyte Esterase (Negative) 02/16/24 02/16/24 02/16/24 Range/Units 18:46 16:53 15:00 WBC (4.8-10.8) K/ul RBC (4.20-5.40) M/uL Hgb (12.0-16.0) g/dl POC Hgb (12.0-16.0) g/dl Hct (37.0-47.0) % POC Hct (37-47) % MCV (80.0-100.0) fL MCH (25.0-34.0) pg MCHC (32.0-36.0) g/dL RDW Std Deviation (36.4-46.3) fL RDW Coeff of Sam (11.5-14.5) % Plt Count (130-400) K/uL MPV (9.4-12.4) fL Immature Gran % (Auto) % Neut % (Auto) % Lymph % (Auto) % Parmer % (Auto) % Eos % (Auto) % Baso % (Auto) % Neut # (Auto) (1.40-6.50) K/uL Lymph # (Auto) (1.20-3.40) K/uL Parmer # (Auto) (0.11-0.59) K/uL Eos # (Auto) (0.00-0.50) K/uL Baso # (Auto) (0.00-0.20) K/uL Immature Gran # (Auto) (0.01-0.20) K/uL PT (9.0-12.0) Seconds INR (0.9-1.1) APTT (21-31) Seconds PTT Ratio VBG pH (7.36-7.41) VBG pCO2 (38-50) mmHg VBG pO2 mmHg VBG HCO3 mmol/L VBG O2 Saturation % VBG Base Excess mEq/L POC Sodium (135-144) mmol/L Sodium (136-145) mmol/L POC Potassium (3.3-5.0) mmol/L Potassium (3.5-5.1) mmol/L POC Chloride (101-112) mmol/L Chloride (98-107) mmol/L Carbon Dioxide (21-32) mmol/L POC Total CO2 (24-31) mmol/L Anion Gap (3-11) POC Anion Gap (16-25) mmol/L POC BUN (7-18) mg/dl BUN (6-23) mg/dl Creatinine (0.6-1.2) mg/dl POC Creatinine (0.6-1.3) mg/dl Est Cr Clr Drug Dosing ml/min Est GFR ( Amer) ml/min Est GFR (Non-Af Amer) ml/min BUN/Creatinine Ratio (10-20) Glucose (70-99(Fasting)) mg/dl POC Glucose 129 H (70-99) mg/dl POC Glucose (other) (70-99) mg/dl Lactate 2.2 H* (0.4-2.0) mmol/L Calcium (8.6-10.3) mg/dl POC Ioniz Calcium Gudelia (1.12-1.32) mmol/l Magnesium (1.7-2.4) mg/dl Total Bilirubin (0.2-1.0) mg/dl Direct Bilirubin (0-0.2) mg/dl AST (13-39) U/L ALT (7-52) U/L Alkaline Phosphatase (34-104) U/L Troponin I High Sens (0-14) pg/ml Total Protein (6.0-8.3) gm/dl Albumin (3.4-5.0) gm/dl Procalcitonin (0-0.5) ng/ml Urine Color Yellow Urine Appearance Clear (Clear) Urine pH 6.0 (4.5-7.5) Ur Specific Penitas 1.012 (1.000-1.030) Urine Protein Negative (Negative) Urine Glucose (UA) Negative (Negative) Urine Ketones Negative (Negative) Urine Blood Negative (Negative) Urine Nitrite Negative (Negative) Urine Bilirubin Negative (Negative) Urine Urobilinogen Negative (Negative) Ur Leukocyte Esterase Negative (Negative) 02/16/24 02/16/24 02/16/24 Range/Units 14:40 13:07 13:00 WBC 5.73 (4.8-10.8) K/ul RBC 4.24 (4.20-5.40) M/uL Hgb 11.6 L (12.0-16.0) g/dl POC Hgb 11.6 L (12.0-16.0) g/dl Hct 36.5 L (37.0-47.0) % POC Hct 34 L (37-47) % MCV 86.1 (80.0-100.0) fL MCH 27.4 (25.0-34.0) pg MCHC 31.8 L (32.0-36.0) g/dL RDW Std Deviation 47.1 H (36.4-46.3) fL RDW Coeff of Sam 14.9 H (11.5-14.5) % Plt Count 249 (130-400) K/uL MPV 10.1 (9.4-12.4) fL Immature Gran % (Auto) 0.2 % Neut % (Auto) 45.2 % Lymph % (Auto) 38.4 % Parmer % (Auto) 12.0 % Eos % (Auto) 2.8 % Baso % (Auto) 1.4 % Neut # (Auto) 2.59 (1.40-6.50) K/uL Lymph # (Auto) 2.20 (1.20-3.40) K/uL Parmer # (Auto) 0.69 H (0.11-0.59) K/uL Eos # (Auto) 0.16 (0.00-0.50) K/uL Baso # (Auto) 0.08 (0.00-0.20) K/uL Immature Gran # (Auto) 0.01 (0.01-0.20) K/uL PT 10.8 (9.0-12.0) Seconds INR 1.0 (0.9-1.1) APTT 24 (21-31) Seconds PTT Ratio 0.9 VBG pH 7.40 (7.36-7.41) VBG pCO2 44 (38-50) mmHg VBG pO2 30 mmHg VBG HCO3 27 mmol/L VBG O2 Saturation < 60.0 % VBG Base Excess 2.0 mEq/L POC Sodium 140 (135-144) mmol/L Sodium 141 (136-145) mmol/L POC Potassium 4.2 (3.3-5.0) mmol/L Potassium 4.2 (3.5-5.1) mmol/L POC Chloride 103 (101-112) mmol/L Chloride 105 (98-107) mmol/L Carbon Dioxide 28 (21-32) mmol/L POC Total CO2 26 (24-31) mmol/L Anion Gap 8 (3-11) POC Anion Gap 17.0 (16-25) mmol/L POC BUN 14 (7-18) mg/dl BUN 14 (6-23) mg/dl Creatinine 1.18 (0.6-1.2) mg/dl POC Creatinine 1.2 (0.6-1.3) mg/dl Est Cr Clr Drug Dosing 47.6 ml/min Est GFR ( Amer) 50.4 ml/min Est GFR (Non-Af Amer) 43.5 ml/min BUN/Creatinine Ratio 11.9 (10-20) Glucose 140 H (70-99(Fasting)) mg/dl POC Glucose (70-99) mg/dl POC Glucose (other) 141 H (70-99) mg/dl Lactate 3.5 H* (0.4-2.0) mmol/L Calcium 9.7 (8.6-10.3) mg/dl POC Ioniz Calcium Gudelia 1.23 (1.12-1.32) mmol/l Magnesium 1.9 (1.7-2.4) mg/dl Total Bilirubin 0.5 (0.2-1.0) mg/dl Direct Bilirubin 0.1 (0-0.2) mg/dl AST 21 (13-39) U/L ALT 15 (7-52) U/L Alkaline Phosphatase 59 (34-104) U/L Troponin I High Sens 12.2 (0-14) pg/ml Total Protein 6.6 (6.0-8.3) gm/dl Albumin 3.8 (3.4-5.0) gm/dl Procalcitonin < 0.02 (0-0.5) ng/ml Urine Color Urine Appearance (Clear) Urine pH (4.5-7.5) Ur Specific Penitas (1.000-1.030) Urine Protein (Negative) Urine Glucose (UA) (Negative) Urine Ketones (Negative) Urine Blood (Negative) Urine Nitrite (Negative) Urine Bilirubin (Negative) Urine Urobilinogen (Negative) Ur Leukocyte Esterase (Negative) 02/16/24 Range/Units 12:56 WBC (4.8-10.8) K/ul RBC (4.20-5.40) M/uL Hgb (12.0-16.0) g/dl POC Hgb (12.0-16.0) g/dl Hct (37.0-47.0) % POC Hct (37-47) % MCV (80.0-100.0) fL MCH (25.0-34.0) pg MCHC (32.0-36.0) g/dL RDW Std Deviation (36.4-46.3) fL RDW Coeff of Sam (11.5-14.5) % Plt Count (130-400) K/uL MPV (9.4-12.4) fL Immature Gran % (Auto) % Neut % (Auto) % Lymph % (Auto) % Parmer % (Auto) % Eos % (Auto) % Baso % (Auto) % Neut # (Auto) (1.40-6.50) K/uL Lymph # (Auto) (1.20-3.40) K/uL Parmer # (Auto) (0.11-0.59) K/uL Eos # (Auto) (0.00-0.50) K/uL Baso # (Auto) (0.00-0.20) K/uL Immature Gran # (Auto) (0.01-0.20) K/uL PT (9.0-12.0) Seconds INR (0.9-1.1) APTT (21-31) Seconds PTT Ratio VBG pH (7.36-7.41) VBG pCO2 (38-50) mmHg VBG pO2 mmHg VBG HCO3 mmol/L VBG O2 Saturation % VBG Base Excess mEq/L POC Sodium (135-144) mmol/L Sodium (136-145) mmol/L POC Potassium (3.3-5.0) mmol/L Potassium (3.5-5.1) mmol/L POC Chloride (101-112) mmol/L Chloride (98-107) mmol/L Carbon Dioxide (21-32) mmol/L POC Total CO2 (24-31) mmol/L Anion Gap (3-11) POC Anion Gap (16-25) mmol/L POC BUN (7-18) mg/dl BUN (6-23) mg/dl Creatinine (0.6-1.2) mg/dl POC Creatinine (0.6-1.3) mg/dl Est Cr Clr Drug Dosing ml/min Est GFR ( Amer) ml/min Est GFR (Non-Af Amer) ml/min BUN/Creatinine Ratio (10-20) Glucose (70-99(Fasting)) mg/dl POC Glucose 137 H (70-99) mg/dl POC Glucose (other) (70-99) mg/dl Lactate (0.4-2.0) mmol/L Calcium (8.6-10.3) mg/dl POC Ioniz Calcium Gudelia (1.12-1.32) mmol/l Magnesium (1.7-2.4) mg/dl Total Bilirubin (0.2-1.0) mg/dl Direct Bilirubin (0-0.2) mg/dl AST (13-39) U/L ALT (7-52) U/L Alkaline Phosphatase (34-104) U/L Troponin I High Sens (0-14) pg/ml Total Protein (6.0-8.3) gm/dl Albumin (3.4-5.0) gm/dl Procalcitonin (0-0.5) ng/ml Urine Color Urine Appearance (Clear) Urine pH (4.5-7.5) Ur Specific Penitas (1.000-1.030) Urine Protein (Negative) Urine Glucose (UA) (Negative) Urine Ketones (Negative) Urine Blood (Negative) Urine Nitrite (Negative) Urine Bilirubin (Negative) Urine Urobilinogen (Negative) Ur Leukocyte Esterase (Negative) Diagnostic Findings Chest X-Ray 02/16/24 13:32 SINGLE VIEW CHEST CLINICAL HISTORY: Sepsis FINDINGS: An AP, portable, upright chest radiograph is compared to study dated 02/05/2024. Correlation is made with chest CT dated 01/14/2023. The heart is enlarged noting atherosclerotic calcification of the thoracic aorta. The pulmonary vasculature is noncontrast. Chronic interstitial thickening is similar to previous. There is mild bibasilar scarring/atelectasis. The lungs and pleural spaces are otherwise clear. No pneumothorax is seen. The skeletal structures are osteopenic. The bony thorax is grossly intact. IMPRESSION: Cardiomegaly with no active disease in the chest. ACT 112: Negative or not required by law. Electronically signed by: Karri Salas M.D. 02/16/2024 2:[address] 02/16/24 13:32 CT head/brain wo con CLINICAL HISTORY: 78 years-old Female with ams. Acutely altered mental status TECHNIQUE: Multiple axial CT images of the head were obtained without contrast. A dose lowering technique was utilized adhering to the principles of ALARA. CT DOSE: 547.75 mGy.cm COMPARISON: 02/05/2024 FINDINGS: No acute intracranial hemorrhage, midline shift, intracranial mass, hydrocephalus, territorial ischemia or abnormal extra-axial collection. Involutional changes with chronic microvascular ischemic disease. Bilateral parietal lobe and bilateral cerebellar encephalomalacia related to chronic infarcts. The calvarium is intact. The paranasal sinuses, mastoid air cells, and middle ear cavities are clear. IMPRESSION: Chronic infarcts as above without acute intracranial abnormality identified. ACT 112: Negative or not required by law. The above report was generated using voice recognition software. It may contain grammatical, syntax or spelling errors. Electronically signed by: Noah Fletcher M.D. 02/16/2024 2:05 PM PG Care Time/CCT Total # of Minutes Spent Total Time Spent with Patient: Total time spent is greater than 50% in coordination of care (as documented) at patient's floor/unit and/or counseling patient: Coding Level of Care Code 11890 SUB INP/OBS CARE 2/35MIN Diagnoses Encephalopathy G93.40 Abnormal brain MRI R90.89 Hypothyroidism E03.9 Lactate blood increased R79.89 Diabetes E11.9
[2024-02-17] MEDS: POTASSIUM CHLORIDE CRTAB 20 MEQ TABCR PO SCH (08:38)
[2024-02-17] MEDS: CEROVITE ADV FORMULA TAB PO SCH (08:38)
[2024-02-17] MEDS: CHOLECALCIFEROL 25 MCG (1000 UNITS) TAB PO SCH (08:38)
[2024-02-17] MEDS: PANTOprazole 40 MG TAB PO SCH (08:38)
[2024-02-17] MEDS: CLOPIDOGREL BISULFATE 75 MG TAB PO SCH (08:38)
[2024-02-17] MEDS: THIAMINE HCL 100 MG TAB PO SCH (08:39)
[2024-02-17] MEDS: LANTUS PER UNIT CHARGE SQ SCH (08:53)
[2024-02-17 11:31] LABS: A calco-baum cmplx NotReported Not Detected (NotDetected); Bact fragilis Not Reported Not Detected (NotDetected); Blood Culture Id Panel See PCR Comment (NotDetected); C auris Not Reported Not Detected (NotDetected); Calbicans Not Reported Not Detected (NotDetected); Candida glabrata Not Reported Not Detected (NotDetected); Candida krusei Not Reported Not Detected (NotDetected); Cneoformans/gatti Not Reported Not Detected (NotDetected); Cparapsilosis Not Reported Not Detected (NotDetected); E cloacae compx Not Reported Not Detected (NotDetected); Efaecalis Not Reported Not Detected (NotDetected); Efaecium Not Reported Not Detected (NotDetected); Enterobacterales Not Reported Not Detected (NotDetected); Escherichia coli Not Reported Not Detected (NotDetected); H influenzae Not Reported Not Detected (NotDetected); K aerogenes Not Reported Not Detected (NotDetected); Koxytoca Not Reported Not Detected (NotDetected); Kpneumoniae grp Not Reported Not Detected (NotDetected); Lmonocyt Not Reported Not Detected (NotDetected); N meningitidis Not Reported Not Detected (NotDetected); P aeruginosa Not Reported Not Detected (NotDetected); Proteus spp Not Reported Not Detected (NotDetected); Salmonella spp Not Reported Not Detected (NotDetected); Smarcescens Not Reported Not Detected (NotDetected); Staph lugdunensis Not Reported Not Detected (NotDetected); Staph spp. Not Reported DETECTED (NotDetected); Staphaureus Not Reported Not Detected (NotDetected); Staphepi Not Reported DETECTED (NotDetected); Staphylococcus spp. DETECTED (NotDetected); Stenmaltophilia Not Reported Not Detected (NotDetected); Strep agal(GrpB) Not Reported Not Detected (NotDetected); Strep pneum Not Reported Not Detected (NotDetected); Strep pyog (GrpA) Not Reported Not Detected (NotDetected); Strep spp Not Reported Not Detected (NotDetected)
[2024-02-17 11:41] LABS: Staphylococcus epidermidis DETECTED (NotDetected); mecAC Resistant Gene DETECTED (NotDetected)
--- NOTE | 2024-02-17 14:54 | XRay Report ---
SINGLE VIEW CHEST CLINICAL HISTORY: Chest congestion. FINDINGS: 2 AP, portable, upright chest radiographs are compared to study dated 02/16/2024. Correlatio n is made with chest CT dated 01/14/2023. The heart is enlarged noting atherosclerotic calcification o f the thoracic aorta. The pulmonary vasculature is noncongested. Chronic interstitial thickening is s imilar to previous. There is mild bibasilar scarring/atelectasis. The lungs and pleural spaces are ot herwise clear. No pneumothorax is seen. The skeletal structures are osteopenic. The bony thorax is gr ossly intact. IMPRESSION: Cardiomegaly with no active disease in the chest. ACT 112: Negative or not required by law. Electronically signed by: Karri Salas M.D. 02/17/2024 2:52 PM
[2024-02-17] MEDS: cefTRIAXone SODIUM 1,000 MG/50 ML BAG IV SCH (20:41)
[2024-02-18 07:42] LABS: Basophils # (auto) 0.07 K/uL (0.00-0.20); Basophils % (auto) 1.3 %; Eosinophils # (auto) 0.23 K/uL (0.00-0.50); Eosinophils % (auto) 4.3 %; Hematocrit (blood only) 34.1 % (37.0-47.0); Hemoglobin 11.2 g/dl (12.0-16.0); Immature Granulocytes # (auto) 0.01 K/uL (0.01-0.20); Immature Granulocytes % (auto) 0.2 %; Lymphocytes # (auto) 2.02 K/uL (1.20-3.40); Mean Corpuscular Hemoglobin 28.1 pg (25.0-34.0); Mean Corpuscular Hgb Conc 32.8 g/dL (32.0-36.0); Mean Corpuscular Volume 85.5 fL (80.0-100.0); Mean Platelet Volume 10.1 fL (9.4-12.4); Monocytes # (auto) 0.64 K/uL (0.11-0.59); Neutrophils # (auto) 2.35 K/uL (1.40-6.50); Neutrophils % (auto) 44.2 %; Platelet Count 232 K/uL (130-400); RDW Coefficient of Variation 14.9 % (11.5-14.5); RDW Standard Deviation 46.8 fL (36.4-46.3); Red Blood Count 3.99 M/uL (4.20-5.40); White Blood Count 5.32 K/ul (4.8-10.8)
[2024-02-18] MEDS: ACETAMINOPHEN 325 MG TAB PO PRN (07:51)
[2024-02-18 08:19] LABS: BUN Creatinine Ratio 13.8 (10-20); Calcium 9.3 mg/dl (8.6-10.3); Creatinine Clr Calc Pharmacy 51.2 ml/min; Est GFR (African American) 55.5 ml/min; Est GFR (Non-African American) 47.9 ml/min; Potassium 4.1 mmol/L (3.5-5.1)
--- NOTE | 2024-02-18 08:45 | Hospitalist Progress Note ---
Date of Service February 18, 2024 Assessment & Plan (1) Encephalopathy: Plan: Mental status similar to with UTIs with the patient has no UTI symptoms and UA appears clear on admission DDx includes early infectious, dehydration, waxing and waning delirium with underlying cognitive decline with increased risk due to old CVA deficits. Was to discharge patient home as she appeared extremely well back to her baseline however lactate while improving had not completely cleared. Due to elevated lactate which had not cleared patient recommended for overnight observation, following blood cultures for 12 to 24 hours, and morning reassessment. Follow fever curve. Repeat labs tomorrow 24 hours of empiric antibiotics continued if no signs of ongoing infection will discontinue these Procalcitonin was normal She was not hypoglycemic, BSG 140s in the ER Hold hydroxyzine 02/16 Was given Cefepime/Ceftriaxone in ER, will continue for now - Repeat UA w/o evidence for bacteria, noting she was dc 02/07 with additional 4 days of cefdinir Blood cultures pending -- 10/09 bottles with gram positive cocci in clusters, PCR staph epidermidis Patient looking/feeling great. Suspect contaminant but continued Rocephin IV for now and monitor repeat cultures/ensure prior without further growth Patient from [facility], will consult PT to ensure able to return but patient and family hoping to return to such Of note, is on lasix 40mg PO daily appears which has not been continued. Will monitor repeat CXR (negative on admission but prior w/ reports of congestion -- on exam, no cough/remains on RA but diminished in the bases and with LE edema) --> was ordered 2L IVF on admission Monitor overnight, plan for dc back to [facility] tomorrow. CM following/family can transport (2) Abnormal brain MRI: Plan: No acute changes on CT, continues on plavix daily also on thiamine 100mg PO daily, appears level in 2022 low & was placed on supplementation at that time, continued (3) Hypothyroidism: Plan: TSH wnl 3.2, remains on Synthroid 25mcg (4) Lactate blood increased: Plan: As noted, improved on repeat (5) Diabetes: Plan: Goal BSG [id number] Continue glargine 10 units, SSI DM 2 diet Chronic stable issues: Prior CVAsno new neurologic deficits. Continue antiplatelets. Continue carvedilol Anxiety/depression: Continue SSRI Plan continued inpatient stay but planning for dc back to [facility] in AM if blood cultures remaining NGTD/no issues overnight Admission and Anticipated Discharge Date Admission Date: February 16, 2024 Results & Data Results & Data Vital Signs (Past 12 Hours) Vital Signs Temp Pulse Resp BP Pulse Ox O2 Del Method 02/18/24 07:52 36.8 C 02/18/24 07:34 36.5 C 73 16 131/83 94 02/17/24 21:07 Room Air PG Care Time/CCT Total # of Minutes Spent Total Time Spent with Patient: Total time spent is greater than 50% in coordination of care (as documented) at patient's floor/unit and/or counseling patient: Coding Diagnoses Encephalopathy G93.40 Abnormal brain MRI R90.89 Hypothyroidism E03.9 Lactate blood increased R79.89 Diabetes E11.9
--- NOTE | 2024-02-18 08:46 | Discharge Summary ---
Date of Service February 18, 2024 Admission HPI Per Admitting Provider Deanna is an 78-year-old female with a past medical history of vascular dementia, seizure disorder as complication of prior CVA, recurrent UTIs, and diabetes, hypertension, heart failure with preserved ejection fraction, hyperlipidemia, hypothyroidism who presents with sedation and confusion similar to prior UTI infections. She was last discharged 02/08/2024 after admission for UTI and was to complete 4 additional days of cefdinir. Patient was pending follow-up with urology for frequent UTIs and was considered for methenamine versus anatomic interventions due to her frequent UTIs. Urine cultures at that time were E. coli with additional resistances but sensitive to cefepime/Rocephin/ertapenem/daptomycin/Zosyn/Bactrim. She presents with increased confusion. She does not have a leukocytosis. She does not have an elevated procalcitonin. Her lactate is elevated at 3.5. Her urine is negative. CT of the head is without acute findings, chronic infarcts are redemonstrated. Chest x-ray is clear. [facility] Mentation greatly improved in the ER. A&Ox3 in the ER.No white count or procal. Currently seen at bedside with patient. Notes she had an episode similar to prior UTIs where she was very difficult to arouse this morning. After her past discharge she did seem to recover completely back to her normal state of health. She has not had any fever, chills, sweats no abdominal pain no dysuria no polyuria. No lightheadedness or dizziness. At time of bedside visit she feels completely back to her normal self. Admission Exam Per Admitting Provider General: A&Ox3. NAD. Cooperative. HEENT: Atraumatic, normocephalic. Pulm: CTAB A&P. -wheezes, -rales, -rhonchi. Symmetrical chest rise. No increased work of breathing. No respiratory distress. Cardiac: RRR, -mrg. Radial pulses intact and symmetrical. Abdominal: Nontender, nondistended, soft. BS present. Principal Diagnosis Confusion, suspected dehydration/medication related Discharge Exam General: 78yo female sitting up in chair, eating lunch, NAD Head atraumatic, normocephalic, mmm, trachea midline Resp; even/unlabored, no w/c/r, on room air CV: RRR, no significant m/r/g, baseline LE edema/lymphedema (per patient about what they are at baseline), calves nontender GI: +BS, soft/NT : no candelario MSK/Neuro: nonfocal , answering questions appropriately, no slurred speech Psych: Alert, oriented to person/place/year, cooperative with exam Discharge Data Allergies Allergy/AdvReac Type Severity Reaction Status Date / Time aspirin Allergy Severe Hives Verified 02/05/24 14:42 NSAIDS (Non-Steroidal Allergy Intermediate Hives Verified 08/20/23 11:15 Anti-Inflamma Penicillins Allergy Intermediate Hives Verified 02/08/24 15:46 fenofibrate Allergy Unknown ON PT MED Verified 08/20/23 11:15 LIST naproxen Allergy Unknown Unknown - Unverified 02/05/24 14:42 On Med List from [facility] propoxyphene Allergy Unknown ON PT MED Verified 08/20/23 11:15 LIST vancomycin Allergy Redness of Verified 08/20/23 11:32 Skin Consultations 02/16/24 15:24 ED Decision to Admit Stat Ordered Studies Chest X-Ray 02/16/24 13:32 SINGLE VIEW CHEST CLINICAL HISTORY: Sepsis FINDINGS: An AP, portable, upright chest radiograph is compared to study dated 02/05/2024. Correlation is made with chest CT dated 01/14/2023. The heart is e nlarged noting atherosclerotic calcification of the thoracic aorta. The pulmonary vasculature is noncontrast. Chronic interstitial thickening is similar to previous. There is mild bibasilar scarring/atelectasis. The lungs and pleural spaces are otherwise clear. No pneumothorax is seen. The skeletal structures are osteopenic. The bony thorax is grossly intact. IMPRESSION: Cardiomegaly with no active disease in the chest. ACT 112: Negative or not required by law. Electronically signed by: Karri Salas M.D. 02/16/2024 2:[address] 02/16/24 13:32 CT head/brain wo con CLINICAL HISTORY: 78 years-old Female with ams. Acutely altered mental status TECHNIQUE: Multiple axial CT images of the head were obtained without contrast. A dose lowering technique was utilized adhering to the principles of ALARA. CT DOSE: 547.75 mGy.cm COMPARISON: 02/05/2024 FINDINGS: No acute intracranial hemorrhage, midline shift, intracranial mass, hydrocepha mehran, territorial ischemia or abnormal extra-axial collection. Involutional changes with chronic microvascular ischemic disease. Bilateral parietal lobe and bilateral cerebellar encephalomalacia related to chronic infarcts. The calvarium is intact. The paranasal sinuses, mastoid air cells, and middle ear cavities are clear. IMPRESSION: Chronic infarcts as above without acute intracranial abnormality identified. ACT 112: Negative or not required by law. The above report was generated using voice recognition software. It may contain grammatical, syntax or spelling errors. Electronically signed by: Noah Fletcher M.D. 02/16/2024 2:05 PM Chest X-Ray 02/17/24 12:54 SINGLE VIEW CHEST CLINICAL HISTORY: Chest congestion. FINDINGS: 2 AP, portable, upright chest radiographs are compared to study dated 02/16/2024. Correlation is made with chest CT dated 01/14/2023. The heart is enlarged noting atherosclerotic calcification of the thoracic aorta. The pulmonary vasculature is noncongested. Chronic interstitial thickening is similar to previous. There is mild bibasilar scarring/atelectasis. The lungs and pleural spaces are otherwise clear. No pneumothorax is seen. The skeletal structures are osteopenic. The bony thorax is grossly intact. IMPRESSION: Cardiomegaly with no active disease in the chest. ACT 112: Negative or not required by law. Electronically signed by: Karri Salas M.D. 02/17/2024 2:52 PM Hospital Course (1) Encephalopathy: Mental status similar to with UTIs with the patient has no UTI symptoms and UA appears clear on admission DDx includes early infectious, dehydration, waxing and waning delirium with underlying cognitive decline with increased risk due to old CVA deficits. Was to discharge patient home as she appeared extremely well back to her baseline however lactate while improving had not completely cleared. Due to elevated lactate which had not cleared patient recommended for overnight observation, following blood cultures for 12 to 24 hours, and morning reassessment. Follow fever curve. Repeat labs tomorrow Procalcitonin was normal She was not hypoglycemic, BSG 140s in the ER Hold hydroxyzine Was given Cefepime/Ceftriaxone in ER, continued ceftriaxone for now Repeat UA without bacteria, noting was dc on 02/07 with additional 4 days cefdinir Blood cx 10/09 bottles gram pos cocci in clusters, PCR yusra epidermidis WBC wnl/afberile, suspected contaminent Patient was hoping to go home 02/16 but discussed to monitor blood cultures which are without additional growth and repeat blood cultures remain negative. WBC wnl/afebrile Of note, is on lasix 40mg PO daily appears which has not been continued. Repeat CXR obtained which was not congested, on room air and ordered 2L IVF on admission Repeat exam 02/17 following competition of IVF and holding off resuming her lasix with no increase in baseline "edema" and weights obtained by nursing upon asking and are down from admission despite IVF and suspect component of lymphedema and recommended she hold off taking daily and to monitor weights/edema and if worsened would use as needed. She did note occassional lightheadedness when she takes her lasix and did appear dehydrated prior to IVF Also discussed would AVOID continued hydroxyzine as takes "prn itching" but suspect more for mood/sleep which was stable off such and can worsen confusion in elderly female. At ak, hydroxyzine to be on HOLD until f/u PCP discussion. Consider decreased 10mg prn dosing if needed. Also to hold off daily lasix and monitor weights/edema and use prn. Of note, BNP also checked and was wnl at 78 Cleared to return back to her [facility] as she has requested. Called and left voicemail for daughter with update on plan and per CM to transport back to [facility] this afternoon (2) Abnormal brain MRI: No acute changes on CT, continues on plavix daily also on thiamine 100mg PO daily, appears level in 2022 low & was placed on supplementation at that time, continued inpatient and at discharge (3) Hypothyroidism: TSH wnl 3.2, remains on Synthroid 25mcg (4) Lactate blood increased: As noted, improved on repeat with IVF which was continued for 2L (5) Diabetes: Goal BSG [id number] Continue glargine 10 units, SSI DM 2 diet Chronic stable issues: Prior CVAsno new neurologic deficits. Continue antiplatelets. Continue carvedilol Anxiety/depression: Continue SSRI Plan discharged back to [facility] with daughter for transport Total Time Total Time Spent Total Time Spent (In Minutes): 40 Discharge Plan Discharge Items Patient Disposition: Personal Halfway Reason For Visit: AMS, ELEVATED LACTATE Discharge Diagnosis: Altered mental status, dehydration, medication related suspected Goals: You have been hospitalized for an acute medical problem. During your stay at [facility] [address], we have made an effort to correct the problem that brought you to the hospital while keeping you as comfortable as possible. Medications were used to bring your condition under control and your discharge instructions will include directions for any medications you should take after leaving the hospital. Please make sure you see your Primary Care Provider as part of your follow up plan. Activity: Resume your previous activity Non-emergency contact: Primary Care Provider Call non-emergency contact if: you have any medication questions, your symptoms worsen, your pain is not controlled and you have a fever Follow-up/Referrals: Bonifacio Ibanez, [Primary Care Provider] - 02/25/24 9:20 am Diet: Carb Consistent or DM2 Addtl Attending Provider Instructions: You have been hospitalized for altered mental status. Imaging of the brain was negative for acute stroke. Imaging of the chest was negative for pneumonia. Blood cultures suspected contaminant and repeat have been without growth and repeat urine sample did not have any bacteria. We are recommending you HOLD off taking any more hydroxyzine for itching and if needing to resume should discuss with PCP about lower 10mg dose as needed. We also gave you IV fluids and held your lasix. Your chest xray was without congestion and leg edema is suspected aspect of lymphedema and your weights are actually down from admission despite holding this. We would recommend you HOLD your lasix and monitor your weights. If you have weight gain/worsened edema, can use the lasix NEEDED for these symptoms. You should only take your oral potassium supplementation if you take the lasix to prevent having elevations in this level. Please follow up with primary care in the next 7-10 days to monitor your progress. It has been a pleasure being a part of the medical team providing for you while you have been in the hospital. Take care! Pending Studies at Discharge: Yes Studies:: repeat blood cultures without growth to date Stand-Alone Forms: My [facility] [employer], Smoking Cessation Skilled Items Patient informed of condition?: Yes DNR: No Discharge Level of Care: Other Communicable Disease: No Discharge Prognosis: Stable Lines: None Urinary Catheter: No Medications and DC Order Prescriptions: Continued carvedilol 3.125 mg tablet 3.125 mg PO BID Rx Instructions: must administer with a meal/food paroxetine HCl 20 mg tablet 20 mg PO HS rosuvastatin 20 mg tablet 20 mg PO HS clopidogrel 75 mg Tablet 75 mg PO QAM Qty: 30 0RF metformin 1,000 mg tablet 1,000 mg PO QAM cholecalciferol (vitamin D3) [Vitamin D3] 25 mcg (1,000 unit) Capsule 25 mcg PO DAILY multivit with min-folic acid [Adult Multivitamin Gummies] 200 mcg Tablet,Chewable 1 tab PO QAM levothyroxine [Synthroid] 25 mcg tablet 25 mcg PO QAM Rx Instructions: for underactive thyroid gland magnesium oxide 400 mg (241.3 mg magnesium) Tablet 400 mg PO BID Qty: 0 0RF acetaminophen 325 mg tablet 650 mg PO Q4H PRN (Reason: Pain/Fever) loperamide 2 mg capsule 4 mg PO DAILY MDD 8mg/24hr PRN (Reason: Diarrhea) omeprazole 40 mg capsule,delayed release(DR/EC) 40 mg PO QAM magnesium hydroxide [Milk of Magnesia] 400 mg/5 mL suspension 2,400 mg PO UD PRN (Reason: Constipation) Rx Instructions: Take 30ml by mouth every 3rd day with no bowel movement dextromethorphan-guaifenesin [Mucinex DM] 60-1,200 mg Tablet Extended Release 12 Hr 1 tab PO BID PRN (Reason: Cough/Congestion) insulin glargine [Lantus Solostar U-100 Insulin] 100 unit/mL (3 mL) insulin pen 10 unit SUBCUT HS Lubriderm Daily Moisture Lotion 1 applic TOPICAL BID donepezil 5 mg tablet 5 mg PO HS diclofenac sodium 1 % gel 2 g topical QID PRN (Reason: Pain) thiamine mononitrate (vit B1) 100 mg tablet 100 mg PO QAM Changed potassium chloride 20 mEq tablet,ER particles/crystals 20 meq PO DAILY PRN (Reason: lasix use) Qty: 0 0RF furosemide 20 mg tablet 40 mg PO QAM PRN (Reason: weight gain) Qty: 0 0RF Held hydroxyzine HCl 25 mg tablet 25 mg PO TID PRN (Reason: Itching) Hold Instructions: Resume on 03/03/24. hold until follow up discussion with primary care Discharge Orders: Discharge Order (Routine); Ordered 02/18/24 Ordered By: Shi Linares Admission Data Admit Date/Time: 02/16/24 17:21 Attending Provider: Yanick Monahan Admit Provider: Bobby Baer Primary Care Provider: Bonifacio Ibanez Other Providers: Bobby Baer Other Interventions: Discharge Summary Assessment (RN) Last Done: 02/18/24 12:19 Supervising Physician Co-Signing Physician Notes The patient was not seen by me. The chart was reviewed. Case discussed with INEZ Cabrera. Agree with assessment and plan. The patient is medically stable for discharge today, February 17 Coding Level of Care Code 09480 INP/OBS DISCH >30 MIN Diagnoses Encephalopathy G93.40 Abnormal brain MRI R90.89 Hypothyroidism E03.9 Lactate blood increased R79.89 Diabetes E11.9
== END 2024-02-18 15:25 | disposition home or self-care (01) ==
LOC: ED 12:53 → 3N 12:53 → SUATTDRO 17:21 → 3N 17:56

== ENCOUNTER 2024-04-04 13:58 | Inpatient (IN) ==
--- NOTE | 2024-04-04 14:33 | XRay Report ---
XR chest 1V portable CLINICAL HISTORY: illness COMPARISON STUDY: Chest radiograph February 17, 2024. Chest CT January 14, 2023. FINDINGS: Lung volumes are normal. Lungs are clear. There is no pneumothorax or pleural effusion. Mil d cardiomegaly is unchanged. Mediastinal contours are normal. There is no evidence for pulmonary gorge a. IMPRESSION: No acute cardiopulmonary findings. No change in appearance of the chest. ACT 112: Negative or not required by law. Electronically signed by: Dioni Manzo M.D. 04/04/2024 2:31 PM
[2024-04-04 14:34] LABS: Appearance Urine Cloudy (Clear); Bacteria Urine Automated 4+ (None Seen); Bilirubin Urine Negative (Negative); Blood Urine Negative (Negative); Cast Urine Automated 0-2 /lpf (0-2); Color Urine Yellow; Epithelial Cell Urine Auto 0-2 /hpf (0-2); Glucose Urine UA Trace (Negative); Ketones Urine Trace (Negative); Leukocyte Esterase Urine 2+ (Negative); Nitrite Urine Positive (Negative); Protein Urine 1+ (Negative); RBC Urine Automated 0-2 /hpf (0-2); Specific Gravity Urine 1.024 (1.000-1.030); Urobilinogen Urine Negative (Negative); WBC Urine Automated >50 /hpf (0-5); pH Urine 5.5 (4.5-7.5)
--- NOTE | 2024-04-04 14:40 | Emergency Department Note ---
Impression & Plan Acute UTI, Elevated lactic acid level, AMS (altered mental status) ED Provider Note NAME: ANTONIO BILL AGE: 78 SEX: F : 1945 ARRIVES VIA: Ambulance INFORMANT: Patient ED PROVIDER(S): Sanjay Lai DO CHIEF COMPLAINT: Altered mental status HPI: Patient is an 78-year-old female with a past medical history of sepsis, UTI, hyperlipidemia, GERD, CHF and ischemic stroke who presents to the ER for altered mental status from [facility]. She was complaining of some pain with urination and staff believes that she has UTI. Per report this has happened multiple times. Patient denies any head pain or neck pain. No chest pain or shortness of breath. No belly pain. No nausea, vomiting, or diarrhea. No dysuria, urgency, or frequency. She denies all other complaints but history is limited. ADDITIONAL HISTORY OBTAINED: Per HPI Chronic Medical/Social Conditions Affecting Care: Per HPI PAST MEDICAL HISTORY:See Below PAST SURGICAL HISTORY:See Below FAMILY HISTORY:See Below SOCIAL HISTORY:See Below HOME MEDICATIONS:See Below ALLERGIES:See Below VITALS:See Below PHYSICAL EXAMINATION: GENERAL: Lying in bed, sleeping but awakens to voice follows commands EYE EXAM: normal conjunctiva. PERRL and EOM's grossly intact. OROPHARYNX: no exudate, no erythema, lips, buccal mucosa, and tongue normal and mucous membranes are moist NECK: supple, no nuchal rigidity, no adenopathy, non-tender LUNGS: Clear to auscultation. Normal chest wall mechanics HEART: no murmurs, S1 normal and S2 normal ABDOMEN: abdomen soft, non-tender, normo-active bowel sounds, no masses, no rebound or guarding. UPPER EXTREMITIES: upper extremities are grossly normal. LOWER EXTREMITIES: No pitting edema. NEURO EXAM: Oriented to person but not place or year, cranial nerves II-XII intact, normal speech, no weakness of arms, no weakness of legs. No drift. Finger to nose intact. Gross sensation intact. MEDICAL DECISION MAKING: Patient is an 78-year-old female who presents ER for above-stated complaint. IV was established blood work is obtained. Labs show no significant leukocytosis. Mild anemia 11. BMP was unremarkable with exception of an elevated glucose at 190 and a lactate of 2.2. LFTs bilirubin was unremarkable. UA consistent with UTI. Previous urine cultures were reviewed and with the nitrates she was treated with cefepime which after review of external records/previous cultures should cover. Patient was given IV fluids. Family were updated bedside discussed with the hospitalist admitted for further workup. Consults/Care Managements Discussions: Per MDM Triage Nursing notes reviewed. Limited review of prior medical records performed Vital Signs: reviewed and remarkable for HTN Differential diagnosis: Differential diagnoses includes but is not limited to toxic, metabolic, infectious, traumatic, cardiac, neurologic, hematologic, psychiatric and inflammatory etiologies. ER treatment provided: See below Diagnostics interpreted by me include EKG and cardiac monitoring as listed below: -Cardiac Monitoring: An order was placed for continuous cardiac monitoring. The monitor shows a rate of 80 with sinus rhythm. -ECG: none -Laboratory studies:[Interpreted by me as stated above in MDM and shown below.] Imaging studies: Xrays: As interpreted by me: Portable AP upright 1 view of the chest shows no focal infiltrate CTs show: CT of the head was negative per radiology Procedures:none Critical Care: None Past Med/Surg History Problem List (Updated 04/04/24 @ 20:16 by Sanjay Lai DO) Elevated lactic acid level (Acute) Acute UTI (Acute) Sepsis (Acute) UTI (urinary tract infection) (Acute) Recurrent UTI (urinary tract infection) Ascending aorta dilatation Discussion about advance care planning held with family member Palliative care by specialist Confusion Cerebrovascular disease HLD (hyperlipidemia) GERD (gastroesophageal reflux disease) CHF (congestive heart failure) UTI (urinary tract infection), uncomplicated Generalized weakness Gait apraxia Stroke 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 Neuropathy Fatigue Hypomagnesemia (Acute) Infarction of kidney (Acute) Bladder spasms Depression Confusion and disorientation Seizure-like activity Hypotension Leg swelling AMS (altered mental status) (Acute) Acute hypotension (Acute) Elevated lactic acid level (Acute) SKY (acute kidney injury) Acute metabolic encephalopathy Morbid obesity Prolonged PTT Cerebrovascular disease Abnormal brain MRI Nonobstructive atherosclerosis of coronary artery LBBB (left bundle branch block) Thoracic aortic aneurysm Bilateral leg edema Medical History Discussion about advance care planning held with family member Palliative care by specialist Confusion Strain of rotator cuff of right shoulder Hypothyroidism CHF (congestive heart failure) Depression Bladder spasms GERD (gastroesophageal reflux disease) No pertinent family history Diabetes HLD (hyperlipidemia) HTN (hypertension) 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 Dementia Surgical History S/P colonoscopy S/P hysterectomy S/P appendectomy History of back surgery Status post right knee replacement No pertinent past surgical history Social History Smoking Status: Never smoker Second Hand Exposure: No; Do You Dip or Chew Tobacco: No; Hx Alcohol Use: No Hx Substance Use: No Preferred Language: Sami Communication Ability: Impaired Visual Impairment: No Limitations Hearing Ability: Normal Channeler Outsole Required: No Beliefs That Will Affect Care: None marital status: / Current Living Situation: Residential Current Living Situation Comment: At [facility] current occupational status: retired Feels Safe at Home: Yes Childhood Exposure to Second-Hand Smoke: No Diet: diabetic Dental Care, Regularly: No Physical Activity Frequency: Does not Exercise Seatbelt Use: always Sunscreen Use: No Assistive Devices: Walker Allergies Allergies Allergy/AdvReac Type Severity Reaction Status Date / Time aspirin Allergy Severe Hives Verified 04/04/24 16:15 NSAIDS (Non-Steroidal Allergy Intermediate Hives Verified 04/04/24 16:15 Anti-Inflamma Penicillins Allergy Intermediate Hives Verified 04/04/24 16:15 vancomycin Allergy Intermediate Redness of Verified 04/04/24 16:15 Skin fenofibrate Allergy Unknown ON PT MED Verified 04/04/24 16:15 LIST naproxen Allergy Unknown Unknown - Verified 04/04/24 16:15 On Med List from [facility] propoxyphene Allergy Unknown ON PT MED Verified 04/04/24 16:15 LIST Home Meds Home Medications Medication Instructions Recorded Confirmed carvedilol 3.125 mg tablet 3.125 mg PO BID 01/29/22 04/04/24 paroxetine HCl 20 mg tablet 20 mg PO HS 01/29/22 04/04/24 rosuvastatin 20 mg tablet 20 mg PO HS 01/29/22 04/04/24 metformin 1,000 mg tablet 1,000 mg PO QAM 01/14/23 04/04/24 cholecalciferol (vitamin D3) 25 25 mcg PO QAM 03/17/23 04/04/24 mcg (1,000 unit) capsule (Vitamin D3) levothyroxine 25 mcg tablet 25 mcg PO DAILYBB 03/17/23 04/04/24 (Synthroid) multivitamin with minerals-folic 1 tab PO QAM 03/17/23 04/04/24 acid 200 mcg chewable tablet (Adult Multivitamin Gummies) acetaminophen 325 mg tablet 650 mg PO Q4H PRN Pain/Fever 02/05/24 04/04/24 dextromethorphan-guaifenesin ER 60 1 tab PO BID PRN Cough/Congestion 02/05/24 04/04/24 mg-1,200 mg tab,extend release,12hr (Mucinex DM) diclofenac sodium 1 % topical gel 2 g topical QID PRN Pain 02/05/24 04/04/24 donepezil 5 mg tablet 5 mg PO HS 02/05/24 04/04/24 emollient combination no.92 1 applic topical BID Dry skin - 02/05/24 04/04/24 (Lubriderm Daily Moisture lotion) Legs hydroxyzine HCl 25 mg tablet 25 mg PO TID PRN Itching 02/05/24 04/04/24 insulin glargine 100 unit/mL (3 10 unit subcut HS 02/05/24 04/04/24 mL) subcutaneous pen (Lantus Solostar U-100 Insulin) loperamide 2 mg capsule 4 mg PO DAILY PRN Diarrhea 02/05/24 04/04/24 magnesium hydroxide 400 mg/5 mL 2,400 mg PO UD PRN Constipation 02/05/24 04/04/24 oral suspension (Milk of Magnesia) omeprazole 40 mg capsule,delayed 40 mg PO DAILYBB 02/05/24 04/04/24 release furosemide 40 mg tablet (Lasix) 80 mg PO QAM PRN EDEMA/WT GAIN 04/04/24 04/04/24 potassium chloride 20 mEq 20 meq PO QAM PRN WHEN GIVEN LASIX 04/04/24 04/04/24 tablet,extended release(part/cryst) Previous Rx's Medication Instructions Recorded magnesium oxide 400 mg (241.3 mg 400 mg PO BID #0 tabs 03/20/23 magnesium) tablet clopidogrel 75 mg tablet 75 mg PO QAM #30 tabs 04/28/23 Results & Data (ED) Vital Signs Vital Signs - 24 hr 04/04/24 14:03 04/04/24 14:16 04/04/24 15:30 Temperature 36.9 C Temperature Source Oral Pulse Rate 84 83 Pulse Rate [Apical] 76 Pulse Rhythm Regular Pulse Strength Normal Respiratory Rate 24 18 Respiratory Effort / Characteristics Non-Labored Non-Labored Respiratory Depth Normal Respiratory Pattern Regular Blood Pressure 166/82 H Blood Pressure [Right Arm] 150/93 H Blood Pressure Mean 110 Blood Pressure Mean [Right Arm] 112 Blood Pressure Position Sitting Pulse Oximetry 93 96 Oxygen Delivery Method Room Air Room Air Sepsis Recent Fever Within 48 Hours No Sepsis New/Unexplained Change in Mental Status Yes Sepsis Action Taken by Nursing Physician Notified Laboratory Data 04/04/24 14:25 04/04/24 14:25 Lab Results 04/04/24 04/04/24 04/04/24 Range/Units 14:13 14:25 14:36 WBC 7.45 (4.8-10.8) K/ul RBC 4.09 L (4.20-5.40) M/uL Hgb 11.0 L (12.0-16.0) g/dl Hct 34.6 L (37.0-47.0) % MCV 84.6 (80.0-100.0) fL MCH 26.9 (25.0-34.0) pg MCHC 31.8 L (32.0-36.0) g/dL RDW Std Deviation 48.4 H (36.4-46.3) fL RDW Coeff of Sam 15.8 H (11.5-14.5) % Plt Count 268 (130-400) K/uL MPV 9.7 (9.4-12.4) fL Immature Gran % (Auto) 0.1 % Neut % (Auto) 52.4 % Lymph % (Auto) 31.8 % Aurora % (Auto) 12.9 % Eos % (Auto) 1.7 % Baso % (Auto) 1.1 % Neut # (Auto) 3.90 (1.40-6.50) K/uL Lymph # (Auto) 2.37 (1.20-3.40) K/uL Aurora # (Auto) 0.96 H (0.11-0.59) K/uL Eos # (Auto) 0.13 (0.00-0.50) K/uL Baso # (Auto) 0.08 (0.00-0.20) K/uL Immature Gran # (Auto) 0.01 (0.01-0.20) K/uL Sodium 137 (136-145) mmol/L Potassium 3.9 (3.5-5.1) mmol/L Chloride 105 (98-107) mmol/L Carbon Dioxide 25 (21-32) mmol/L Anion Gap 7 (3-11) BUN 14 (6-23) mg/dl Creatinine 1.02 (0.6-1.2) mg/dl Est Cr Clr Drug Dosing 55.1 ml/min Est GFR ( Amer) 60.2 ml/min Est GFR (Non-Af Amer) 51.9 ml/min BUN/Creatinine Ratio 13.7 (10-20) Glucose 189 H (70-99(Fasting)) mg/dl Lactate 2.2 H* (0.4-2.0) mmol/L Calcium 9.4 (8.6-10.3) mg/dl Total Bilirubin 0.6 (0.2-1.0) mg/dl AST 16 (13-39) U/L ALT 9 (7-52) U/L Alkaline Phosphatase 59 (34-104) U/L Ammonia (18-72) umol/L Total Protein 6.4 (6.0-8.3) gm/dl Albumin 3.9 (3.4-5.0) gm/dl Globulin 2.5 (2.5-4.0) gm/dl Albumin/Globulin Ratio 1.6 (0.9-2) Lipase 65 (11-82) U/L SARS-CoV-2 (PCR) NEGATIVE (Negative) Influenza Type A (PCR) Negative (Neg) Influenza Type B (PCR) Negative (Neg) RSV (RT-PCR) Negative (Neg) 04/04/24 Range/Units 14:39 WBC (4.8-10.8) K/ul RBC (4.20-5.40) M/uL Hgb (12.0-16.0) g/dl Hct (37.0-47.0) % MCV (80.0-100.0) fL MCH (25.0-34.0) pg MCHC (32.0-36.0) g/dL RDW Std Deviation (36.4-46.3) fL RDW Coeff of Sam (11.5-14.5) % Plt Count (130-400) K/uL MPV (9.4-12.4) fL Immature Gran % (Auto) % Neut % (Auto) % Lymph % (Auto) % Aurora % (Auto) % Eos % (Auto) % Baso % (Auto) % Neut # (Auto) (1.40-6.50) K/uL Lymph # (Auto) (1.20-3.40) K/uL Aurora # (Auto) (0.11-0.59) K/uL Eos # (Auto) (0.00-0.50) K/uL Baso # (Auto) (0.00-0.20) K/uL Immature Gran # (Auto) (0.01-0.20) K/uL Sodium (136-145) mmol/L Potassium (3.5-5.1) mmol/L Chloride (98-107) mmol/L Carbon Dioxide (21-32) mmol/L Anion Gap (3-11) BUN (6-23) mg/dl Creatinine (0.6-1.2) mg/dl Est Cr Clr Drug Dosing ml/min Est GFR ( Amer) ml/min Est GFR (Non-Af Amer) ml/min BUN/Creatinine Ratio (10-20) Glucose (70-99(Fasting)) mg/dl Lactate (0.4-2.0) mmol/L Calcium (8.6-10.3) mg/dl Total Bilirubin (0.2-1.0) mg/dl AST (13-39) U/L ALT (7-52) U/L Alkaline Phosphatase (34-104) U/L Ammonia 18.0 (18-72) umol/L Total Protein (6.0-8.3) gm/dl Albumin (3.4-5.0) gm/dl Globulin (2.5-4.0) gm/dl Albumin/Globulin Ratio (0.9-2) Lipase (11-82) U/L SARS-CoV-2 (PCR) (Negative) Influenza Type A (PCR) (Neg) Influenza Type B (PCR) (Neg) RSV (RT-PCR) (Neg) Administered Medications Lactated Ringer's (Lr) 1,000 mls @ 80 mls/hr IV .[id number] ROSANNA Stop: 04/05/24 05:44 Last Admin: 04/04/24 17:58 Dose: 80 mls/hr Documented By: PATRICK Discontinued Medications Cefepime HCl (Maxipime) 2,000 mg in 20 mls @ 5 mls/min IV NOW STA; Protocol Stop: 04/04/24 14:45 Last Admin: 04/04/24 14:57 Dose: 5 mls/min Documented By: PATRICK Sodium Chloride (Nss) 500 mls @ 999 mls/hr IV .Q31M ONE Stop: 04/04/24 15:13 Last Infusion: 04/04/24 18:10 Dose: Infused Documented By: Admin: 04/04/24 14:57 Dose: 999 mls/hr Documented By: PATRICK Imaging Data Radiologist's Impression: Chest X-Ray 04/04/24 14:11 XR chest 1V portable CLINICAL HISTORY: illness COMPARISON STUDY: Chest radiograph February 17, 2024. Chest CT January 14, 2023. FINDINGS: Lung volumes are normal. Lungs are clear. There is no pneumothorax or pleural effusion. Mild cardiomegaly is unchanged. Mediastinal contours are normal. There is no evidence for pulmonary edema. IMPRESSION: No acute cardiopulmonary findings. No change in appearance of the chest. ACT 112: Negative or not required by law. Electronically signed by: Dioni Manzo M.D. 04/04/2024 2:[address] 04/04/24 14:42 CT OF THE HEAD WITHOUT CONTRAST CLINICAL HISTORY: Altered mental status. COMPARISON STUDY: MRI of the brain October 24, [address] February 16, 2024. CT DOSE: 703.85 mGy.cm TECHNIQUE: Helical axial images of the head were obtained without IV contrast. Automated exposure control was utilized for the study. A dose lowering technique was utilized adhering to the principles of ALARA. FINDINGS: No acute intracranial hemorrhage, midline shift or mass effect is present. White matter hypodensities are unchanged and suggest small vessel disease. Multiple foci of encephalomalacia are unchanged since prior head CT and represents an old infarcts. The ventricular system is unremarkable. The basal cisterns are patent. No extra-axial collections are present. There are no findings to suggest acute dural sinus thrombosis or acute territorial infarct. No significant calvarial abnormalities are present. Visualized portions of the sinuses and mastoid air cells are clear. IMPRESSION: No acute intracranial findings. No change in appearance of the brain. Multiple old infarcts. ACT 112: Negative or not required by law. Electronically signed by: Dioni Manzo M.D. 04/04/2024 3:37 PM Discharge Plan Visit Data Chief Complaint: Urinary Symptoms Stated Complaint: ALTERED MENTAL STATUS, UTI? ED Provider: Sanjay Lai Discharge Problem: Acute UTI, Elevated lactic acid level, AMS (altered mental status) Patient Disposition: Admitted As Inpatient Discharge Instructions Interventions: ED Discharge Assessment Last Done: 04/04/24 19:02 Discharge Problem: AMS (altered mental status) Qualifiers: Altered mental status type: unspecified Qualified Code(s): R41.82 - Altered mental status, unspecified
[2024-04-04] MEDS: SODIUM CHLORIDE 0.9% 500 ML IV ONE (14:57)
[2024-04-04] MEDS: CEFEPIME 2,000 MG/20 ML VIAL IV STA (14:57)
[2024-04-04 14:59] LABS: Basophils # (auto) 0.08 K/uL (0.00-0.20); Basophils % (auto) 1.1 %; Eosinophils # (auto) 0.13 K/uL (0.00-0.50); Eosinophils % (auto) 1.7 %; Hematocrit (blood only) 34.6 % (37.0-47.0); Immature Granulocytes # (auto) 0.01 K/uL (0.01-0.20); Immature Granulocytes % (auto) 0.1 %; Lymphocytes # (auto) 2.37 K/uL (1.20-3.40); Lymphocytes % (auto) 31.8 %; Mean Corpuscular Hemoglobin 26.9 pg (25.0-34.0); Mean Corpuscular Hgb Conc 31.8 g/dL (32.0-36.0); Mean Corpuscular Volume 84.6 fL (80.0-100.0); Mean Platelet Volume 9.7 fL (9.4-12.4); Monocytes # (auto) 0.96 K/uL (0.11-0.59); Monocytes % (auto) 12.9 %; Neutrophils % (auto) 52.4 %; Platelet Count 268 K/uL (130-400); RDW Coefficient of Variation 15.8 % (11.5-14.5); RDW Standard Deviation 48.4 fL (36.4-46.3); Red Blood Count 4.09 M/uL (4.20-5.40); White Blood Count 7.45 K/ul (4.8-10.8)
[2024-04-04 15:08] LABS: Albumin Globulin Ratio 1.6 (0.9-2); Albumin Level 3.9 gm/dl (3.4-5.0); BUN Creatinine Ratio 13.7 (10-20); Bilirubin,Total 0.6 mg/dl (0.2-1.0); Calcium 9.4 mg/dl (8.6-10.3); Creatinine Clr Calc Pharmacy 55.1 ml/min; Est GFR (African American) 60.2 ml/min; Est GFR (Non-African American) 51.9 ml/min; Globulin 2.5 gm/dl (2.5-4.0); Potassium 3.9 mmol/L (3.5-5.1); Total Protein 6.4 gm/dl (6.0-8.3)
[2024-04-04 15:13] LABS: Influenza A virus by PCR Negative (Neg); Influenza B virus by PCR Negative (Neg); RSV by PCR Negative (Neg); SARS CoV2 RNA(COVID-19) Ceph NEGATIVE (Negative)
--- NOTE | 2024-04-04 15:39 | CT Scan Report ---
CT OF THE HEAD WITHOUT CONTRAST CLINICAL HISTORY: Altered mental status. COMPARISON STUDY: MRI of the brain October 24, [address] February 16, 2024. CT DOSE: 703.85 mGy.cm TECHNIQUE: Helical axial images of the head were obtained without IV contrast. Automated exposure con trol was utilized for the study. A dose lowering technique was utilized adhering to the principles o f ALARA. FINDINGS: No acute intracranial hemorrhage, midline shift or mass effect is present. White matter hyp odensities are unchanged and suggest small vessel disease. Multiple foci of encephalomalacia are unch anged since prior head CT and represents an old infarcts. The ventricular system is unremarkable. The basal cisterns are patent. No extra-axial collections are present. There are no findings to suggest acute dural sinus thrombosis or acute territorial infarct. No significant calvarial abnormalities are present. Visualized portions of the sinuses and mastoid air cells are clear. IMPRESSION: No acute intracranial findings. No change in appearance of the brain. Multiple old infar cts. ACT 112: Negative or not required by law. Electronically signed by: Dioni Manzo M.D. 04/04/2024 3:37 PM
--- NOTE | 2024-04-04 16:48 | History & Physical Report ---
Date of Service April 04, 2024 Assessment & Plan (1) AMS (altered mental status): Plan: Admit to med/surge with telemetry Currently stable nontoxic-appearing Was sent to the ED from her skilled nursing for recurrent altered mental status consistent with previous UTIs CT of the head and brain without contrast was negative for acute findings, no signs of infection on chest x-ray UA today is consistent with recurrent UTI, no signs of contamination as epithelial cells are within normal limits Status post 1 dose of cefepime and 500 miles in the evening No focal neuro defects on exam Fall/aspiration precautions Give light IV hydration on admission as she appears dehydrated on exam Subcu heparin for DVT prophylaxis Heart healthy/DM type II diet 2 g sodium restriction AM CBC, CMP, mag, PT/INR (2) UTI (urinary tract infection): Plan: UA is consistent with recurrent UTI Patient has a history of previous Enterococcus and Klebsiella UTIs, has only grown Enterococcus on 1 previous urine culture She is clinically stable, will continue with cefepime for now Follow urine and blood cultures ordered on admission (3) Cerebrovascular disease: Plan: Continue Plavix and statin (4) Hypothyroidism: Plan: Continue levothyroxine (5) Diabetes: Plan: Monitor BSG ACHS goal is [id number] Unsure of how much she will eat on admission so we will start 5 units Lantus twice daily, CF of 50, CR of 15 ACHS Adjust regimen as needed (6) HTN (hypertension): Plan: Currently stable Continue carvedilol Will hold home Lasix today as she is dehydrated, can resume tomorrow if euvolemic (7) Dementia: Plan: Continue at bedtime donepezil Plan The patient was discussed with Dr. Mathews at the time of the admission History of Present Illness Chief Complaint: AMS similar to her know recurrent UTI's Primary Care Provider: Bonifacio Ibanez DO Deanna is an 78-year-old female with a past medical history of vascular dementia, seizure disorder as complication of prior CVA, recurrent UTIs, and diabetes, hypertension, heart failure with preserved ejection fraction, hyperlipidemia, and hypothyroidism who presented to the [facility] ED on 04/04/2024 from [place] due to increased altered mental status consistent with her history of recurrent UTIs. She remained stable in the ED labs were significant for an initial lactate of 2.2 and UA consistent with UTI, COVID-19/influenza/RSV negative. CT of the head/brain without contrast was read as negative for acute changes as well as x-ray of the chest. Prior to admission the patient was given a dose of cefepime and 500 mL normal saline. Patient sitting in bed in no acute distress at the time of exam with her daughter at bedside. History was mainly obtained from the patient's daughter due to her current mental state. Daughter confirms she was called for increased altered mental status again consistent with her previous UTIs. No other complaints or issues recently. Patient lying in bed in no acute distress, laughs when you ask if she is doing stage she is doing well. Denies any complaints at this time. Daughter confirms patient is a full code and she is her power of employee benefits attorney. Please refer to Dr. Mathews's attestation for any changes to the treatment plan Allergies Allergy/AdvReac Type Severity Reaction Status Date / Time aspirin Allergy Severe Hives Verified 04/04/24 16:15 NSAIDS (Non-Steroidal Allergy Intermediate Hives Verified 04/04/24 16:15 Anti-Inflamma Penicillins Allergy Intermediate Hives Verified 04/04/24 16:15 vancomycin Allergy Intermediate Redness of Verified 04/04/24 16:15 Skin fenofibrate Allergy Unknown ON PT MED Verified 04/04/24 16:15 LIST naproxen Allergy Unknown Unknown - Verified 04/04/24 16:15 On Med List from [facility] propoxyphene Allergy Unknown ON PT MED Verified 04/04/24 16:15 LIST Home Medications Medication Instructions Recorded Confirmed Type carvedilol 3.125 mg tablet 3.125 mg PO BID 01/29/22 04/04/24 History paroxetine HCl 20 mg tablet 20 mg PO HS 01/29/22 04/04/24 History rosuvastatin 20 mg tablet 20 mg PO HS 01/29/22 04/04/24 History metformin 1,000 mg tablet 1,000 mg PO QAM 01/14/23 04/04/24 History cholecalciferol (vitamin D3) 25 25 mcg PO QAM 03/17/23 04/04/24 History mcg (1,000 unit) capsule (Vitamin D3) levothyroxine 25 mcg tablet 25 mcg PO DAILYBB 03/17/23 04/04/24 History (Synthroid) multivitamin with minerals-folic 1 tab PO QAM 03/17/23 04/04/24 History acid 200 mcg chewable tablet (Adult Multivitamin Gummies) magnesium oxide 400 mg (241.3 mg 400 mg PO BID #0 tabs 03/20/23 04/04/24 Rx magnesium) tablet clopidogrel 75 mg tablet 75 mg PO QAM #30 tabs 04/28/23 04/04/24 Rx acetaminophen 325 mg tablet 650 mg PO Q4H PRN Pain/Fever 02/05/24 04/04/24 History dextromethorphan-guaifenesin ER 60 1 tab PO BID PRN Cough/Congestion 02/05/24 04/04/24 History mg-1,200 mg tab,extend release,12hr (Mucinex DM) diclofenac sodium 1 % topical gel 2 g topical QID PRN Pain 02/05/24 04/04/24 History donepezil 5 mg tablet 5 mg PO HS 02/05/24 04/04/24 History emollient combination no.92 1 applic topical BID Dry skin - 02/05/24 04/04/24 History (Lubriderm Daily Moisture lotion) Legs hydroxyzine HCl 25 mg tablet 25 mg PO TID PRN Itching 02/05/24 04/04/24 History insulin glargine 100 unit/mL (3 10 unit subcut HS 02/05/24 04/04/24 History mL) subcutaneous pen (Lantus Solostar U-100 Insulin) loperamide 2 mg capsule 4 mg PO DAILY PRN Diarrhea 02/05/24 04/04/24 History magnesium hydroxide 400 mg/5 mL 2,400 mg PO UD PRN Constipation 02/05/24 04/04/24 History oral suspension (Milk of Magnesia) omeprazole 40 mg capsule,delayed 40 mg PO DAILYBB 02/05/24 04/04/24 History release furosemide 40 mg tablet (Lasix) 80 mg PO QAM PRN EDEMA/WT GAIN 04/04/24 04/04/24 History potassium chloride 20 mEq 20 meq PO QAM PRN WHEN GIVEN LASIX 04/04/24 04/04/24 History tablet,extended release(part/cryst) Past Med/Surg History Problem List (Updated 03/10/24 @ 00:06 by Background Daemon) Sepsis (Acute) UTI (urinary tract infection) (Acute) Recurrent UTI (urinary tract infection) Ascending aorta dilatation Discussion about advance care planning held with family member Palliative care by specialist Confusion Cerebrovascular disease HLD (hyperlipidemia) GERD (gastroesophageal reflux disease) CHF (congestive heart failure) UTI (urinary tract infection), uncomplicated Generalized weakness Gait apraxia Stroke 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 Neuropathy Fatigue Hypomagnesemia (Acute) Infarction of kidney (Acute) Bladder spasms Depression Confusion and disorientation Seizure-like activity Hypotension Leg swelling AMS (altered mental status) (Acute) Acute hypotension (Acute) Elevated lactic acid level (Acute) SKY (acute kidney injury) Acute metabolic encephalopathy Morbid obesity Prolonged PTT Cerebrovascular disease Abnormal brain MRI Nonobstructive atherosclerosis of coronary artery LBBB (left bundle branch block) Thoracic aortic aneurysm Bilateral leg edema Medical History Discussion about advance care planning held with family member Palliative care by specialist Confusion Strain of rotator cuff of right shoulder Hypothyroidism CHF (congestive heart failure) Depression Bladder spasms GERD (gastroesophageal reflux disease) No pertinent family history Diabetes HLD (hyperlipidemia) HTN (hypertension) 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 Dementia Surgical History S/P colonoscopy S/P hysterectomy S/P appendectomy History of back surgery Status post right knee replacement No pertinent past surgical history Social History Smoking Status: Never smoker Second Hand Exposure: No; Do You Dip or Chew Tobacco: No; Hx Alcohol Use: No Hx Substance Use: No Preferred Language: [place] Leonean Communication Ability: Impaired Visual Impairment: No Limitations Hearing Ability: Normal Electrical Project Manager Required: No Beliefs That Will Affect Care: None marital status: / Current Living Situation: Custodial Current Living Situation Comment: At [facility] facility current occupational status: retired Feels Safe at Home: Yes Childhood Exposure to Second-Hand Smoke: No Diet: diabetic Dental Care, Regularly: No Physical Activity Frequency: Does not Exercise Seatbelt Use: always Sunscreen Use: No Assistive Devices: Walker Physical Exam Physical Exam: Physical Exam: General: In no acute distress, stated age, chronically ill appearing but non- toxic HEENT: Normocephalic, atraumatic, no scleral icterus, pupils around round, symmetrical, and reactive to light, dry mucus membranes, trachea midline, no thyromegaly Chest/Pulm: No respiratory distress, symmetrical chest expansion, clear breath sounds throughout Cardiac: RRR, no murmurs noted Abdomen: Negative for ascites and bruising, normoactive bowel sounds, soft, non-tender to palpation throughout Musculoskeletal: Symmetrical and without signs of acute trauma, upper and lower extremities with full ROM, no atrophy, spasticity, or flaccidity Extremities: Radial, dorsalis pedis, and posterior tibial pulses are intact and symmetrical, mild edema noted in the LE's Skin: Warm, dry, no rashes , lesions, or scars noted Neuro: Alert and oriented to person only (typical presentation with UTI's), CN II-XII tested and intact, no tremors noted Psych: No acute distress, pleasantly confused, calm and cooperative during the exam Results & Data Results & Data Vital Signs (Past 12 Hours) Vital Signs Temp Pulse Pulse Resp BP BP Pulse Ox 04/04/24 15:30 76 18 150/93 H 96 04/04/24 14:16 83 04/04/24 14:03 36.9 C 84 24 166/82 H 93 O2 Del Method 04/04/24 15:30 Room Air 04/04/24 14:16 04/04/24 14:03 Room Air Laboratory Results Abnormal lab results 04/04/24 04/04/24 04/04/24 Range/Units 14:25 14:36 16:55 RBC 4.09 L (4.20-5.40) M/uL Hgb 11.0 L (12.0-16.0) g/dl Hct 34.6 L (37.0-47.0) % MCHC 31.8 L (32.0-36.0) g/dL RDW Std Deviation 48.4 H (36.4-46.3) fL RDW Coeff of Sam 15.8 H (11.5-14.5) % [place] # (Auto) 0.96 H (0.11-0.59) K/uL Glucose 189 H (70-99(Fasting)) mg/dl Lactate 2.2 H* 2.2 H* (0.4-2.0) mmol/L Urine Appearance (Clear) Urine Protein (Negative) Urine Glucose (UA) (Negative) Urine Ketones (Negative) Urine Nitrite (Negative) Ur Leukocyte Esterase (Negative) Urine WBC (Auto) (0-5) /hpf Urine Bacteria (Auto) (None Seen) 04/04/24 Range/Units Unknown RBC (4.20-5.40) M/uL Hgb (12.0-16.0) g/dl Hct (37.0-47.0) % MCHC (32.0-36.0) g/dL RDW Std Deviation (36.4-46.3) fL RDW Coeff of Sam (11.5-14.5) % [place] # (Auto) (0.11-0.59) K/uL Glucose (70-99(Fasting)) mg/dl Lactate (0.4-2.0) mmol/L Urine Appearance Cloudy A (Clear) Urine Protein 1+ H (Negative) Urine Glucose (UA) Trace H (Negative) Urine Ketones Trace H (Negative) Urine Nitrite Positive A (Negative) Ur Leukocyte Esterase 2+ H (Negative) Urine WBC (Auto) >50 H (0-5) /hpf Urine Bacteria (Auto) 4+ H (None Seen) Diagnostic Findings Chest X-Ray 04/04/24 14:11 XR chest 1V portable CLINICAL HISTORY: illness COMPARISON STUDY: Chest radiograph February 17, 2024. Chest CT January 14, 2023. FINDINGS: Lung volumes are normal. Lungs are clear. There is no pneumothorax or pleural effusion. Mild cardiomegaly is unchanged. Mediastinal contours are normal. There is no evidence for pulmonary edema. IMPRESSION: No acute cardiopulmonary findings. No change in appearance of the chest. ACT 112: Negative or not required by law. Electronically signed by: Dioni Manzo M.D. 04/04/2024 2:[address] 04/04/24 14:42 CT OF THE HEAD WITHOUT CONTRAST CLINICAL HISTORY: Altered mental status. COMPARISON STUDY: MRI of the brain October 24, [address] February 16, 2024. CT DOSE: 703.85 mGy.cm TECHNIQUE: Helical axial images of the head were obtained without IV contrast. Automated exposure control was utilized for the study. A dose lowering technique was utilized adhering to the principles of ALARA. FINDINGS: No acute intracranial hemorrhage, midline shift or mass effect is present. White matter hypodensities are unchanged and suggest small vessel disease. Multiple foci of encephalomalacia are unchanged since prior head CT and represents an old infarcts. The ventricular system is unremarkable. The basal cisterns are patent. No extra-axial collections are present. There are no fin dings to suggest acute dural sinus thrombosis or acute territorial infarct. No significant calvarial abnormalities are present. Visualized portions of the sinuses and mastoid air cells are clear. IMPRESSION: No acute intracranial findings. No change in appearance of the brain. Multiple old infarcts. ACT 112: Negative or not required by law. Electronically signed by: Dioni Manzo M.D. 04/04/2024 3:37 PM ECG Additional Comments: Will obtain at the time of admission Code Status & VTE Plan Code Status Full code VTE Prophylaxis Plan VTE Prophylaxis will be ordered: Yes Supervising Physician Co-Signing Physician Notes patient was seen and examined , transferred with change in MS , most likely to xic encephalopathy due to recurrent UTI, no signs of CVA, no focal deficit, slightly elevated lactic acid She will be started on IV fluid IV antibiotic Follow-up on the blood cultures urine culture Continue other home meds Case discussed with Fani De Jesus agree with above assessment and plan PG Care Time/CCT Total # of Minutes Spent Total Time Spent with Patient: Total time spent is greater than 50% in coordination of care (as documented) at patient's floor/unit and/or counseling patient: Coding [place] [address] INT INP/OBS CARE 2/55MIN Patient Type Established Medical Decision Making Moderate Complexity Diagnoses AMS (altered mental status) R41.82 UTI (urinary tract infection) N39.0 Cerebrovascular disease I67.9 Hypothyroidism E03.9 Diabetes E11.9 HTN (hypertension) I10 Dementia F03.90
[2024-04-04] MEDS ORDERED: GLUCOSE 40% GEL 15 GM TUBE PO PRN (16:53)
[2024-04-04] MEDS ORDERED: DEXTROSE 50% 50 ML SYRINGE IV PRN (16:53)
[2024-04-04] MEDS ORDERED: GLUCOSE 10 TAB/TUBE PO PRN (16:53)
[2024-04-04] MEDS ORDERED: GLUCAGON FOR INJ 1 MG VIAL SQ PRN (16:53)
[2024-04-04] MEDS ORDERED: CARBOHYDRATES FOR HYPOGLYCEMIA PO PRN (16:53)
[2024-04-04] MEDS: LACTATED RINGER'S 1,000 ML IV SCH (17:58)
[2024-04-04] MEDS ORDERED: MAGNESIUM HYDROXIDE SUSP 30 ML UDC PO PRN (19:08)
[2024-04-04] MEDS ORDERED: LOPERAMIDE HCL 2 MG CAP PO PRN (19:08)
[2024-04-04] MEDS: carvediloL 3.125 MG TAB PO SCH (20:44)
[2024-04-04] MEDS: PARoxetine HCL 20 MG TAB PO SCH (20:45)
[2024-04-04] MEDS: DONEPEZIL HCL 5 MG TAB PO SCH (20:45)
[2024-04-04] MEDS: ROSUVASTATIN CALCIUM 20 MG TAB PO SCH (20:45)
[2024-04-04] MEDS: LANTUS PER UNIT CHARGE SQ SCH (20:48)
[2024-04-04] MEDS: HEPARIN SOD 5,000 UNIT/0.5 ML VIAL SQ SCH (20:50)
[2024-04-04] MEDS: INSULIN ASPART PER UNIT CHARGE SC SCH (21:36)
[2024-04-05] MEDS: LEVOTHYROXINE SODIUM 25 MCG TABLET PO SCH (06:04)
[2024-04-05] MEDS: PANTOprazole 40 MG TAB PO SCH (06:04)
[2024-04-05 06:57] LABS: Basophils # (auto) 0.08 K/uL (0.00-0.20); Basophils % (auto) 1.4 %; Eosinophils # (auto) 0.22 K/uL (0.00-0.50); Hematocrit (blood only) 31.9 % (37.0-47.0); Hemoglobin 10.2 g/dl (12.0-16.0); Immature Granulocytes # (auto) 0.01 K/uL (0.01-0.20); Immature Granulocytes % (auto) 0.2 %; Lymphocytes # (auto) 2.38 K/uL (1.20-3.40); Mean Corpuscular Hemoglobin 27.1 pg (25.0-34.0); Mean Corpuscular Volume 84.6 fL (80.0-100.0); Mean Platelet Volume 10.1 fL (9.4-12.4); Monocytes # (auto) 0.77 K/uL (0.11-0.59); Monocytes % (auto) 13.9 %; Neutrophils # (auto) 2.07 K/uL (1.40-6.50); Neutrophils % (auto) 37.5 %; Platelet Count 236 K/uL (130-400); RDW Coefficient of Variation 15.9 % (11.5-14.5); RDW Standard Deviation 48.8 fL (36.4-46.3); Red Blood Count 3.77 M/uL (4.20-5.40); White Blood Count 5.53 K/ul (4.8-10.8)
[2024-04-05] MEDS: CLOPIDOGREL BISULFATE 75 MG TAB PO SCH (07:31)
[2024-04-05 07:32] LABS: Prothrombin Time 11.3 Seconds (9.0-12.0)
[2024-04-05 10:21] LABS: Calcium 8.8 mg/dl (8.6-10.3); Magnesium 1.8 mg/dl (1.7-2.4); Potassium 4.1 mmol/L (3.5-5.1)
[2024-04-05] MEDS: CEFEPIME 2,000 MG in SYRINGE 0 ML IV SCH (10:21)
[2024-04-05 10:27] LABS: Creatinine Clr Calc Pharmacy 56.4 ml/min; Est GFR (African American) 61.6 ml/min; Est GFR (Non-African American) 53.2 ml/min
--- NOTE | 2024-04-05 14:23 | Hospitalist Progress Note ---
Date of Service April 05, 2024 Assessment & Plan (1) Acute metabolic encephalopathy: Plan: Was sent to the ED from her [facility] for recurrent altered mental status consistent with previous UTIs CT of the head and brain without contrast was negative for acute findings, no signs of infection on chest x-ray UA is consistent with recurrent UTI Urine culture growing gram-negative matthew Patient received cefepime in the emergency room. Will continue. Improved clinically Spoke to daughter who confirmed that the patient is awake and alert, she is definitely improved as she was very sleepy and lethargic yesterday. (2) UTI (urinary tract infection): Plan: UA is consistent with UTI Urine culture growing gram-negative matthew Patient has a history of previous Enterococcus and Klebsiella UTIs, has only grown Enterococcus on 1 previous urine culture She is clinically stable, will continue with cefepime for now Follow urine and blood cultures ordered on admission (3) Cerebrovascular disease: Plan: Continue Plavix and statin (4) Hypothyroidism: Plan: Continue levothyroxine (5) Diabetes: Plan: Monitor BSG ACHS goal is [id number] Unsure of how much she will eat on admission so we will start 5 units Lantus twice daily, CF of 50, CR of 15 ACHS Adjust regimen as needed (6) HTN (hypertension): Plan: Currently stable Continue carvedilol Will hold home Lasix today as she is dehydrated, can resume tomorrow if euvolemic (7) Dementia: Plan: Continue at bedtime donepezil Plan Full code Prophylaxis: Heparin 3 times daily Admission and Anticipated Discharge Date Admission Date: April 04, 2024 Subjective Patient feels better overall. She is awake and alert. She is smiling. She does not remember much about what happened yesterday and why she is in the hospital. However she tells me that her mind is clear and she is able to think straight. I spoke to the daughter on the phone to find out that yesterday she was very sleepy. Review of Systems Review of Systems: All systems reviewed & are unremarkable except as noted in Subjective Physical Exam Physical Exam: General: Awake, conversant Heart: S1, S2/regular rate and rhythm, no murmur rubs or gallops Lungs: Clear to auscultation bilaterally. Normal effort Abdomen: Soft/nontender/nondistended. No hepatosplenomegaly Extremities: No clubbing/cyanosis. No edema Behavior: Appropriate, cooperative Results & Data Results & Data Vital Signs (Past 12 Hours) Vital Signs Temp Pulse Pulse Resp BP Pulse Ox O2 Del Method 04/05/24 11:35 36.8 C 62 17 120/65 96 Room Air 04/05/24 07:46 37.3 C 67 17 121/72 95 Room Air 04/05/24 06:57 79 04/05/24 04:16 36.6 C 84 18 127/75 94 Room Air Laboratory Results Abnormal lab results 04/04/24 04/04/24 04/04/24 Range/Units 14:25 14:36 16:55 RBC 4.09 L (4.20-5.40) M/uL Hgb 11.0 L (12.0-16.0) g/dl Hct 34.6 L (37.0-47.0) % MCHC 31.8 L (32.0-36.0) g/dL RDW Std Deviation 48.4 H (36.4-46.3) fL RDW Coeff of Sam 15.8 H (11.5-14.5) % [place] # (Auto) 0.96 H (0.11-0.59) K/uL Chloride (98-107) mmol/L Glucose 189 H (70-99(Fasting)) mg/dl POC Glucose (70-99) mg/dl Lactate 2.2 H* 2.2 H* (0.4-2.0) mmol/L 04/04/24 04/05/24 04/05/24 Range/Units 20:20 05:50 08:02 RBC 3.77 L (4.20-5.40) M/uL Hgb 10.2 L (12.0-16.0) g/dl Hct 31.9 L (37.0-47.0) % MCHC (32.0-36.0) g/dL RDW Std Deviation 48.8 H (36.4-46.3) fL RDW Coeff of Sam 15.9 H (11.5-14.5) % [place] # (Auto) 0.77 H (0.11-0.59) K/uL Chloride 109 H (98-107) mmol/L Glucose 161 H (70-99(Fasting)) mg/dl POC Glucose 142 H 160 H (70-99) mg/dl Lactate (0.4-2.0) mmol/L 04/05/24 Range/Units 12:00 RBC (4.20-5.40) M/uL Hgb (12.0-16.0) g/dl Hct (37.0-47.0) % MCHC (32.0-36.0) g/dL RDW Std Deviation (36.4-46.3) fL RDW Coeff of Sam (11.5-14.5) % [place] # (Auto) (0.11-0.59) K/uL Chloride (98-107) mmol/L Glucose (70-99(Fasting)) mg/dl POC Glucose 170 H (70-99) mg/dl Lactate (0.4-2.0) mmol/L Diagnostic Findings Head CT 04/04/24 14:42 CT OF THE HEAD WITHOUT CONTRAST CLINICAL HISTORY: Altered mental status. COMPARISON STUDY: MRI of the brain October 24, [address] February 16, 2024. CT DOSE: 703.85 mGy.cm TECHNIQUE: Helical axial images of the head were obtained without IV contrast. Automated exposure control was utilized for the study. A dose lowering technique was utilized adhering to the principles of ALARA. FINDINGS: No acute intracranial hemorrhage, midline shift or mass effect is pre sent. White matter hypodensities are unchanged and suggest small vessel disease. Multiple foci of encephalomalacia are unchanged since prior head CT and represents an old infarcts. The ventricular system is unremarkable. The basal cisterns are patent. No extra-axial collections are present. There are no findings to suggest acute dural sinus thrombosis or acute territorial infarct. No significant calvarial abnormalities are present. Visualized portions of the sinuses and mastoid air cells are clear. IMPRESSION: No acute intracranial findings. No change in appearance of the brain. Multiple old infarcts. ACT 112: Negative or not required by law. Electronically signed by: Dioni Manzo M.D. 04/04/2024 3:37 PM PG Care Time/CCT Total # of Minutes Spent Total Time Spent with Patient: Total time spent is greater than 50% in coordination of care (as documented) at patient's floor/unit and/or counseling patient: Coding Level of Care Code 73371 SUB INP/OBS CARE 2/35MIN Diagnoses Acute metabolic encephalopathy G93.41 UTI (urinary tract infection) N39.0 Cerebrovascular disease I67.9 Hypothyroidism E03.9 Diabetes E11.9 HTN (hypertension) I10 Dementia F03.90
[2024-04-06 06:44] LABS: Basophils # (auto) 0.06 K/uL (0.00-0.20); Basophils % (auto) 1.1 %; Eosinophils # (auto) 0.25 K/uL (0.00-0.50); Eosinophils % (auto) 4.4 %; Hematocrit (blood only) 32.3 % (37.0-47.0); Hemoglobin 10.2 g/dl (12.0-16.0); Immature Granulocytes # (auto) 0.01 K/uL (0.01-0.20); Immature Granulocytes % (auto) 0.2 %; Lymphocytes # (auto) 2.35 K/uL (1.20-3.40); Lymphocytes % (auto) 41.5 %; Mean Corpuscular Hemoglobin 26.6 pg (25.0-34.0); Mean Corpuscular Hgb Conc 31.6 g/dL (32.0-36.0); Mean Corpuscular Volume 84.1 fL (80.0-100.0); Mean Platelet Volume 10.1 fL (9.4-12.4); Monocytes # (auto) 0.79 K/uL (0.11-0.59); Neutrophils % (auto) 38.8 %; Platelet Count 245 K/uL (130-400); RDW Coefficient of Variation 15.8 % (11.5-14.5); RDW Standard Deviation 48.2 fL (36.4-46.3); Red Blood Count 3.84 M/uL (4.20-5.40); White Blood Count 5.66 K/ul (4.8-10.8)
[2024-04-06 06:58] LABS: Prothrombin Time 11.3 Seconds (9.0-12.0)
[2024-04-06 07:40] LABS: Calcium 8.7 mg/dl (8.6-10.3); Magnesium 1.7 mg/dl (1.7-2.4); Potassium 3.9 mmol/L (3.5-5.1)
[2024-04-06 07:45] LABS: BUN Creatinine Ratio 15.7 (10-20); Creatinine Clr Calc Pharmacy 52.4 ml/min; Est GFR (African American) 56.1 ml/min; Est GFR (Non-African American) 48.4 ml/min
--- NOTE | 2024-04-06 12:53 | Discharge Summary ---
Date of Service April 06, 2024 Admission HPI Per Admitting Provider Deanna is an 78-year-old female with a past medical history of vascular dementia, seizure disorder as complication of prior CVA, recurrent UTIs, and diabetes, hypertension, heart failure with preserved ejection fraction, hyperlipidemia, and hypothyroidism who presented to the [facility] ED on 04/04/2024 from [place] due to increased altered mental status consistent with her history of recurrent UTIs. She remained stable in the ED labs were significant for an initial lactate of 2.2 and UA consistent with UTI, COVID-19/influenza/RSV negative. CT of the head/brain without contrast was read as negative for acute changes as well as x-ray of the chest. Prior to admission the patient was given a dose of cefepime and 500 mL normal saline. Patient sitting in bed in no acute distress at the time of exam with her daughter at bedside. History was mainly obtained from the patient's daughter due to her current mental state. Daughter confirms she was called for increased altered mental status again consistent with her previous UTIs. No other complaints or issues recently. Patient lying in bed in no acute distress, laughs when you ask if she is doing stage she is doing well. Denies any co mplaints at this time. Daughter confirms patient is a full code and she is her power of collections attorney. Please refer to Dr. Mathews's attestation for any changes to the treatment plan Admission Exam Per Admitting Provider General: In no acute distress, stated age, chronically ill appearing but non-toxic HEENT: Normocephalic, atraumatic, no scleral icterus, pupils around round, symmetrical, and reactive to light, dry mucus membranes, trachea midline, no thyromegaly Chest/Pulm: No respiratory distress, symmetrical chest expansion, clear breath sounds throughout Cardiac: RRR, no murmurs noted Abdomen: Negative for ascites and bruising, normoactive bowel sounds, soft, non- tender to palpation throughout Musculoskeletal: Symmetrical and without signs of acute trauma, upper and lower extremities with full ROM, no atrophy, spasticity, or flaccidity Extremities: Radial, dorsalis pedis, and posterior tibial pulses are intact and symmetrical, mild edema noted in the LE's Skin: Warm, dry, no rashes , lesions, or scars noted Neuro: Alert and oriented to person only (typical presentation with UTI's), CN II-XII tested and intact, no tremors noted Psych: No acute distress, pleasantly confused, calm and cooperative during the exam Principal Diagnosis Acute metabolic encephalopathy due to UTI Acute Klebsiella pyelonephritis Discharge Exam General: Awake, conversant Heart: S1, S2/regular rate and rhythm, no murmur rubs or gallops Lungs: Clear to auscultation bilaterally. Normal effort Abdomen: Soft/nontender/nondistended. No hepatosplenomegaly Extremities: No clubbing/cyanosis. No edema Behavior: Appropriate, cooperative Discharge Data Allergies Allergy/AdvReac Type Severity Reaction Status Date / Time aspirin Allergy Severe Hives Verified 04/04/24 16:15 NSAIDS (Non-Steroidal Allergy Intermediate Hives Verified 04/04/24 16:15 Anti-Inflamma Penicillins Allergy Intermediate Hives Verified 04/04/24 16:15 vancomycin Allergy Intermediate Redness of Verified 04/04/24 16:15 Skin fenofibrate Allergy Unknown ON PT MED Verified 04/04/24 16:15 LIST naproxen Allergy Unknown Unknown - Verified 04/04/24 16:15 On Med List from [facility] propoxyphene Allergy Unknown ON PT MED Verified 04/04/24 16:15 LIST Consultations 04/04/24 16:09 ED Decision to Admit Stat Ordered Studies 04/04/24 14:42 CT head/brain wo con Stat Hospital Course (1) Acute metabolic encephalopathy: Was sent to the ED from her residential for recurrent altered mental status consistent with previous UTIs CT of the head and brain without contrast was negative for acute findings, no signs of infection on chest x-ray UA is consistent with recurrent UTI Urine culture growing Klebsiella Treated with IV antibiotics. Will switch to p.o. Improved clinically Spoke to daughter who confirmed that the patient is awake and alert, she is definitely improved as she was very sleepy and lethargic yesterday. Per daughter, she is back to her baseline (2) UTI (urinary tract infection): UA is consistent with UTI Urine culture growing Klebsiella Patient has a history of previous Enterococcus and Klebsiella UTIs, has only grown Enterococcus on 1 previous urine culture She is clinically stable, treated with cefepime. Will switch to cefdinir upon discharge Follow urine and blood cultures ordered on admission (3) Cerebrovascular disease: Continue Plavix and statin (4) Hypothyroidism: Continue levothyroxine (5) Diabetes: Back on home regimen (6) HTN (hypertension): Currently stable Continue carvedilol Will hold home Lasix today as she is dehydrated, can resume tomorrow if euvolemic (7) Dementia: Continue at bedtime donepezil Plan Discharge today Total Time Total Time Spent Total Time Spent (In Minutes): 35 Discharge Plan Discharge Items Patient Disposition: Personal Retirement Reason For Visit: AMS, UTI Discharge Diagnosis: Acute metabolic encephalopathy due to UTI Acute Klebsiella pyelonephritis Activity: Resume your previous activity Non-emergency contact: Primary Care Provider Call non-emergency contact if: you have any medication questions and your symptoms worsen Follow-up/Referrals: Bonifacio Ibanez DO [Primary Care Provider] - Diet: Carb Consistent or DM2 and Heart Healthy Addtl Attending Provider Instructions: Advised to follow-up with PCP in 1 week Pending Studies at Discharge: No Stand-Alone Forms: My [facility] [place] [employer] Skilled Items Patient informed of condition?: Yes DNR: No Discharge Level of Care: Other Communicable Disease: No Discharge Prognosis: Stable Lines: None Urinary Catheter: No Medications and DC Order Prescriptions: New cefdinir 300 mg capsule 300 mg PO BID 5 Days Qty: 10 0RF Continued carvedilol 3.125 mg tablet 3.125 mg PO BID Rx Instructions: must administer with a meal/food paroxetine HCl 20 mg tablet 20 mg PO HS rosuvastatin 20 mg tablet 20 mg PO HS clopidogrel 75 mg Tablet 75 mg PO QAM Qty: 30 0RF metformin 1,000 mg tablet 1,000 mg PO QAM cholecalciferol (vitamin D3) [Vitamin D3] 25 mcg (1,000 unit) Capsule 25 mcg PO QAM multivit with min-folic acid [Adult Multivitamin Gummies] 200 mcg Tablet,Chewable 1 tab PO QAM levothyroxine [Synthroid] 25 mcg tablet 25 mcg PO DAILYBB Rx Instructions: for underactive thyroid gland magnesium oxide 400 mg (241.3 mg magnesium) Tablet 400 mg PO BID Qty: 0 0RF acetaminophen 325 mg tablet 650 mg PO Q4H MDD 3 GRAMS APAP/24 HOURS PRN (Reason: Pain/Fever) loperamide 2 mg capsule 4 mg PO DAILY MDD 8mg/24hr PRN (Reason: Diarrhea) omeprazole 40 mg capsule,delayed release(DR/EC) 40 mg PO DAILYBB magnesium hydroxide [Milk of Magnesia] 400 mg/5 mL suspension 2,400 mg PO UD PRN (Reason: Constipation) Rx Instructions: Take 30ml by mouth every 3rd day with no bowel movement dextromethorphan-guaifenesin [Mucinex DM] 60-1,200 mg Tablet Extended Release 12 Hr 1 tab PO BID PRN (Reason: Cough/Congestion) hydroxyzine HCl 25 mg tablet 25 mg PO TID PRN (Reason: Itching) Hold Instructions: Resume on 03/03/24. hold until follow up discussion with primary care insulin glargine [Lantus Solostar U-100 Insulin] 100 unit/mL (3 mL) insulin pen 10 unit SUBCUT HS Lubriderm Daily Moisture Lotion 1 applic TOPICAL BID donepezil 5 mg tablet 5 mg PO HS diclofenac sodium 1 % gel 2 g topical QID PRN (Reason: Pain) furosemide [Lasix] 40 mg Tablet 80 mg PO QAM PRN (Reason: EDEMA/WT GAIN) potassium chloride 20 mEq Tablet,Er Particles/Crystals 20 meq PO QAM PRN (Reason: WHEN GIVEN LASIX) Discharge Orders: Discharge Order (Routine); Ordered 04/06/24 Ordered By: Colleen Villarreal Admission Data Admit Date/Time: 04/04/24 16:52 Attending Provider: Colleen Villarreal Admit Provider: Vanesa Lopez Primary Care Provider: Bonifacio Ibanez Other Providers: Vanesa Lopez; Aaron Mendez Other Interventions: Discharge Summary Assessment (RN) Last Done: 04/06/24 14:38 Coding Level of Care Code 79302 INP/OBS DISCH >30 MIN Diagnoses Acute metabolic encephalopathy G93.41 UTI (urinary tract infection) N39.0 Cerebrovascular disease I67.9 Hypothyroidism E03.9 Diabetes E11.9 HTN (hypertension) I10 Dementia F03.90
== END 2024-04-06 15:58 | disposition home or self-care (01) | DRG 689 ==
LOC: ED 13:58 → SUATTDRO 16:52 → 2W 16:52

== ENCOUNTER 2024-05-26 18:06 | Observation (INO) ==
--- NOTE | 2024-05-26 18:17 | Emergency Department Note ---
Impression & Plan AMS (altered mental status), Elevated lactic acid level, Elevated serum creatinine, Acute dehydration ED Provider Note HISTORY OF PRESENT ILLNESS: Patient is a 78-year-old female presenting with altered mental status. Patient is too confused to give any meaningful history. Per report from EMS, they were called to the patient's facility because she became obtunded about 1 hour prior to their arrival. On their initial assessment, the patient was grunting but would not form words or partake in examination. On arrival to the ER, the patient is spontaneously moving all extremities but does not answer any questions. Presents and states that the patient was her normal self up until 1700 when she slumped to the side at the dinner table at the facility. Daughter reports she gets like this when she has urinary tract infection. Daughter states that the patient is not normally arousable to sternal rub or painful stimuli when these episodes occur. Reports the patient has dementia at baseline. Reports the patient uses a walker to ambulate. Patient is not on any anticoagulation. Daughter reports patient has not had any recent vomiting or recent fevers. ROS: as above PHYSICAL EXAM: Constitutional: Patient appears in no acute distress. HENT: Head: Normocephalic and atraumatic. Eyes: EOMI, PERRL Mouth/Throat: Mucous membranes moist. Neck: Trachea midline. Neck supple. Cardiovascular: RRR, No murmurs, rubs or gallops. Intact distal pulses. Pulmonary/Chest: No respiratory distress. Breath sounds clear and equal bilaterally. No wheezes or rales. Abdominal: Abdomen soft, no tenderness, rebound or guarding. Musculoskeletal: No edema, tenderness or deformity noted. Skin: Warm and dry. No rash, erythema, pallor or cyanosis Neurological: Patient is alert to self. She arouses to painful stimuli, including sternal rub and jaw thrust. She spontaneously moves all extremities, but does not follow directions. Good tone in all extremities. Patient does move her upper extremities out of the way to her event striking her face when held against gravity. MDM: - Vitals signs showed hypertension. - History obtained via EMS and patient's daughter, given patient's altered mental status. History as above. - Chronic conditions affecting care: HLD; GERD; CHF; LBBB - Differential diagnoses include, but are not limited to: Pneumonia; UTI; CVA; intracranial hemorrhage; electrolyte abnormality; ACS - Order placed for continuous cardiac monitoring. At this time, monitor showed rate of 72 bpm with normal sinus rhythm, per my interpretation. - External medical records reviewed. Transitional care visit note dated 04/09/2024 was reviewed. Patient was seen after her admission to the hospital for acute metabolic encephalopathy due to a UTI secondary to Klebsiella. - EKG interpreted by myself showed normal sinus rhythm. Rate 69 bpm. QT 466. No acute ischemic changes. Noted to have some occasional PVCs. - Laboratory workup interpreted by myself showed normal WBC; normal PT/INR; elevated lactate (2.4); stable electrolytes; elevated creatinine (Cr 1.27); normal troponin; normal procalcitonin; negative salicylate/acetaminophen level - UA negative for infection. Noted to have trace ketonuria. - VBG normal - CXR negative for pneumonia, per my interpretation - CT head wo contrast negative for acute pathology. - Patient given 1L NS in ER. - Stroke alert was not called in the emergency department on patient's arrival, given that she has had the exact same symptoms for nonstroke symptoms in the past. - Discussion was had with case technician about patient's case and need for admission - Hospitalist consulted for admission - [facility] ASSESSMENT AND PLAN: Diagnosis: altered mental status; elevated lactic acid level; elevated creatinine; acute dehydration Plan: admit Past Med/Surg History Problem List (Updated 05/26/24 @ 20:41 by Neal Mohr PA-C) Dehydration Encephalopathy Elevated lactic acid level (Acute) Acute UTI (Acute) Sepsis (Acute) UTI (urinary tract infection) (Acute) Recurrent UTI (urinary tract infection) Ascending aorta dilatation Discussion about advance care planning held with family member Palliative care by specialist Confusion Cerebrovascular disease HLD (hyperlipidemia) GERD (gastroesophageal reflux disease) CHF (congestive heart failure) UTI (urinary tract infection), uncomplicated Generalized weakness Gait apraxia Stroke 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 Neuropathy Fatigue Hypomagnesemia (Acute) Infarction of kidney (Acute) Bladder spasms Depression Confusion and disorientation Seizure-like activity Hypotension Leg swelling AMS (altered mental status) (Acute) Acute hypotension (Acute) Elevated lactic acid level (Acute) SKY (acute kidney injury) Acute metabolic encephalopathy Morbid obesity Prolonged PTT Cerebrovascular disease Abnormal brain MRI Nonobstructive atherosclerosis of coronary artery LBBB (left bundle branch block) Thoracic aortic aneurysm Bilateral leg edema Medical History Discussion about advance care planning held with family member Palliative care by specialist Confusion Strain of rotator cuff of right shoulder Hypothyroidism CHF (congestive heart failure) Depression Bladder spasms GERD (gastroesophageal reflux disease) No pertinent family history Diabetes HLD (hyperlipidemia) HTN (hypertension) 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 Dementia Surgical History S/P colonoscopy S/P hysterectomy S/P appendectomy History of back surgery Status post right knee replacement No pertinent past surgical history Social History Smoking Status: Never smoker Second Hand Exposure: No; Do You Dip or Chew Tobacco: No; Hx Alcohol Use: No Hx Substance Use: No Preferred Language: [place] Communication Ability: Effective Visual Impairment: No Limitations Hearing Ability: Normal Referral Nurse Required: No Beliefs That Will Affect Care: None marital status: / Current Living Situation: Intermediate Current Living Situation Comment: At [facility] facility current occupational status: retired Feels Safe at Home: Yes Childhood Exposure to Second-Hand Smoke: No Diet: diabetic Dental Care, Regularly: No Physical Activity Frequency: Does not Exercise Seatbelt Use: always Sunscreen Use: No Assistive Devices: Walker Allergies Allergies Allergy/AdvReac Type Severity Reaction Status Date / Time aspirin Allergy Severe Hives Verified 04/04/24 16:15 NSAIDS (Non-Steroidal Allergy Intermediate Hives Verified 04/04/24 16:15 Anti-Inflamma Penicillins Allergy Intermediate Hives Verified 04/04/24 16:15 vancomycin Allergy Intermediate Redness of Verified 04/04/24 16:15 Skin fenofibrate Allergy Unknown ON PT MED Verified 04/04/24 16:15 LIST naproxen Allergy Unknown Unknown - Verified 04/04/24 16:15 On Med List from [facility] propoxyphene Allergy Unknown ON PT MED Verified 04/04/24 16:15 LIST Home Meds Home Medications Medication Instructions Recorded Confirmed carvedilol 3.125 mg tablet 3.125 mg PO BID 01/29/22 04/04/24 paroxetine HCl 20 mg tablet 20 mg PO HS 01/29/22 04/04/24 rosuvastatin 20 mg tablet 20 mg PO HS 01/29/22 04/04/24 metformin 1,000 mg tablet 1,000 mg PO QAM 01/14/23 04/04/24 cholecalciferol (vitamin D3) 25 25 mcg PO QAM 03/17/23 04/04/24 mcg (1,000 unit) capsule (Vitamin D3) levothyroxine 25 mcg tablet 25 mcg PO DAILYBB 03/17/23 04/04/24 (Synthroid) multivitamin with minerals-folic 1 tab PO QAM 03/17/23 04/04/24 acid 200 mcg chewable tablet (Adult Multivitamin Gummies) acetaminophen 325 mg tablet 650 mg PO Q4H PRN Pain/Fever 02/05/24 04/04/24 dextromethorphan-guaifenesin ER 60 1 tab PO BID PRN Cough/Congestion 02/05/24 04/04/24 mg-1,200 mg tab,extend release,12hr (Mucinex DM) diclofenac sodium 1 % topical gel 2 g topical QID PRN Pain 02/05/24 04/04/24 donepezil 5 mg tablet 5 mg PO HS 02/05/24 04/04/24 emollient combination no.92 1 applic topical BID Dry skin - 02/05/24 04/04/24 (Lubriderm Daily Moisture lotion) Legs hydroxyzine HCl 25 mg tablet 25 mg PO TID PRN Itching 02/05/24 04/04/24 insulin glargine 100 unit/mL (3 10 unit subcut HS 02/05/24 04/04/24 mL) subcutaneous pen (Lantus Solostar U-100 Insulin) loperamide 2 mg capsule 4 mg PO DAILY PRN Diarrhea 02/05/24 04/04/24 magnesium hydroxide 400 mg/5 mL 2,400 mg PO UD PRN Constipation 02/05/24 04/04/24 oral suspension (Milk of Magnesia) omeprazole 40 mg capsule,delayed 40 mg PO DAILYBB 02/05/24 04/04/24 release furosemide 40 mg tablet (Lasix) 80 mg PO QAM PRN EDEMA/WT GAIN 04/04/24 04/04/24 potassium chloride 20 mEq 20 meq PO QAM PRN WHEN GIVEN LASIX 04/04/24 04/04/24 tablet,extended release(part/cryst) Previous Rx's Medication Instructions Recorded magnesium oxide 400 mg (241.3 mg 400 mg PO BID #0 tabs 03/20/23 magnesium) tablet clopidogrel 75 mg tablet 75 mg PO QAM #30 tabs 04/28/23 Results & Data (ED) Vital Signs Vital Signs - 24 hr 05/26/24 18:10 05/26/24 18:22 05/26/24 18:37 Temperature 36.4 C Temperature Source Oral Pulse Rate 87 82 Pulse Rate [Right Finger] 64 Pulse Rate from SpO2 Sensor Pulse Rhythm Regular Pulse Rhythm [Right Finger] Regular Pulse Strength Normal Pulse Strength [Right Finger] Normal Respiratory Rate 20 13 Respiratory Effort / Characteristics Non-Labored Non-Labored Respiratory Depth Normal Normal Respiratory Pattern Regular Blood Pressure 181/109 H Blood Pressure [Right Arm] 141/113 H Blood Pressure Mean 133 Blood Pressure Mean [Right Arm] 122 Blood Pressure Position Lying Blood Pressure Position [Right Arm] Lying Pulse Oximetry 96 96 Oxygen Delivery Method Room Air Room Air Sepsis Recent Fever Within 48 Hours No Sepsis New/Unexplained Change in Mental Status No Sepsis Action Taken by Nursing No Action Required 05/26/24 18:41 05/26/24 19:00 05/26/24 19:09 Temperature Temperature Source Pulse Rate 85 82 Pulse Rate [Right Finger] Pulse Rate from SpO2 Sensor 76 Pulse Rhythm Regular Pulse Rhythm [Right Finger] Pulse Strength Pulse Strength [Right Finger] Respiratory Rate 26 H 19 Respiratory Effort / Characteristics Respiratory Depth Respiratory Pattern Blood Pressure 138/79 Blood Pressure [Right Arm] Blood Pressure Mean 109 Blood Pressure Mean [Right Arm] Blood Pressure Position Blood Pressure Position [Right Arm] Pulse Oximetry 96 95 Oxygen Delivery Method Room Air Sepsis Recent Fever Within 48 Hours Sepsis New/Unexplained Change in Mental Status Sepsis Action Taken by Nursing 05/26/24 19:21 05/26/24 19:31 05/26/24 20:00 Temperature Temperature Source Pulse Rate 77 72 Pulse Rate [Right Finger] Pulse Rate from SpO2 Sensor 72 70 Pulse Rhythm Pulse Rhythm [Right Finger] Pulse Strength Pulse Strength [Right Finger] Respiratory Rate 14 18 Respiratory Effort / Characteristics Respiratory Depth Respiratory Pattern Blood Pressure 151/78 H Blood Pressure [Right Arm] Blood Pressure Mean 100 Blood Pressure Mean [Right Arm] Blood Pressure Position Blood Pressure Position [Right Arm] Pulse Oximetry 95 93 Oxygen Delivery Method Sepsis Recent Fever Within 48 Hours Sepsis New/Unexplained Change in Mental Status Sepsis Action Taken by Nursing Laboratory Data 05/26/24 18:20 05/26/24 18:20 Lab Results 05/26/24 05/26/24 05/26/24 Range/Units 18:20 18:50 19:00 WBC 6.69 (4.8-10.8) K/ul RBC 4.22 (4.20-5.40) M/uL Hgb 11.0 L (12.0-16.0) g/dl Hct 35.1 L (37.0-47.0) % MCV 83.2 (80.0-100.0) fL MCH 26.1 (25.0-34.0) pg MCHC 31.3 L (32.0-36.0) g/dL RDW Std Deviation 49.4 H (36.4-46.3) fL RDW Coeff of Sam 16.5 H (11.5-14.5) % Plt Count 251 (130-400) K/uL MPV 9.9 (9.4-12.4) fL Immature Gran % (Auto) 0.3 % Neut % (Auto) 46.6 % Lymph % (Auto) 36.0 % Gray % (Auto) 13.6 % Eos % (Auto) 2.5 % Baso % (Auto) 1.0 % Neut # (Auto) 3.11 (1.40-6.50) K/uL Lymph # (Auto) 2.41 (1.20-3.40) K/uL Gray # (Auto) 0.91 H (0.11-0.59) K/uL Eos # (Auto) 0.17 (0.00-0.50) K/uL Baso # (Auto) 0.07 (0.00-0.20) K/uL Immature Gran # (Auto) 0.02 (0.01-0.20) K/uL PT 10.6 (9.0-12.0) Seconds INR 1.0 (0.9-1.1) VBG pH (7.36-7.41) VBG pCO2 (38-50) mmHg VBG pO2 mmHg VBG HCO3 mmol/L VBG O2 Saturation % VBG Base Excess mEq/L Sodium 139 (136-145) mmol/L Potassium 4.2 (3.5-5.1) mmol/L Chloride 106 (98-107) mmol/L Carbon Dioxide 26 (21-32) mmol/L Anion Gap 7 (3-11) BUN 14 (6-23) mg/dl Creatinine 1.27 H (0.6-1.2) mg/dl Est Cr Clr Drug Dosing 46.2 ml/min Est GFR ( Amer) 46.2 ml/min Est GFR (Non-Af Amer) 39.8 ml/min BUN/Creatinine Ratio 11.0 (10-20) Glucose 183 H (70-99(Fasting)) mg/dl Lactate 2.4 H* (0.4-2.0) mmol/L Calcium 9.8 (8.6-10.3) mg/dl Magnesium 1.8 (1.7-2.4) mg/dl Total Bilirubin 0.5 (0.2-1.0) mg/dl AST 15 (13-39) U/L ALT 10 (7-52) U/L Alkaline Phosphatase 54 (34-104) U/L Troponin I High Sens 10.1 (0-14) pg/ml Total Protein 6.7 (6.0-8.3) gm/dl Albumin 3.9 (3.4-5.0) gm/dl Globulin 2.8 (2.5-4.0) gm/dl Albumin/Globulin Ratio 1.4 (0.9-2) Procalcitonin < 0.02 (0-0.5) ng/ml Urine Color Yellow Urine Appearance Clear (Clear) Urine pH 6.5 (4.5-7.5) Ur Specific [place] 1.014 (1.000-1.030) Urine Protein Negative (Negative) Urine Glucose (UA) Negative (Negative) Urine Ketones Trace H (Negative) Urine Blood Negative (Negative) Urine Nitrite Negative (Negative) Urine Bilirubin Negative (Negative) Urine Urobilinogen Negative (Negative) Ur Leukocyte Esterase Negative (Negative) Salicylates < 3.0 L (3.0-30) mg/dl Urine Opiates Screen Neg (Neg) Ur Methadone, Qual Neg (Neg) Urine Fentanyl Screen Neg (Neg) Acetaminophen < 3 L (10-30) ug/ml Urine Barbiturates Neg (Neg) Ur Phencyclidine (PCP) Neg (Neg) U Amphetamin/Meth Scrn Neg (Neg) MDMA (Ecstasy) Screen Neg (Neg) U Benzodiazepines Scrn Neg (Neg) Ur Cocaine Metabolite Neg (Neg) U Marijuana (THC) Screen Neg (Neg) 05/26/24 Range/Units 19:36 WBC (4.8-10.8) K/ul RBC (4.20-5.40) M/uL Hgb (12.0-16.0) g/dl Hct (37.0-47.0) % MCV (80.0-100.0) fL MCH (25.0-34.0) pg MCHC (32.0-36.0) g/dL RDW Std Deviation (36.4-46.3) fL RDW Coeff of Sam (11.5-14.5) % Plt Count (130-400) K/uL MPV (9.4-12.4) fL Immature Gran % (Auto) % Neut % (Auto) % Lymph % (Auto) % Gray % (Auto) % Eos % (Auto) % Baso % (Auto) % Neut # (Auto) (1.40-6.50) K/uL Lymph # (Auto) (1.20-3.40) K/uL Gray # (Auto) (0.11-0.59) K/uL Eos # (Auto) (0.00-0.50) K/uL Baso # (Auto) (0.00-0.20) K/uL Immature Gran # (Auto) (0.01-0.20) K/uL PT (9.0-12.0) Seconds INR (0.9-1.1) VBG pH 7.38 (7.36-7.41) VBG pCO2 42 (38-50) mmHg VBG pO2 34 mmHg VBG HCO3 25 mmol/L VBG O2 Saturation < 60.0 % VBG Base Excess -0.4 mEq/L Sodium (136-145) mmol/L Potassium (3.5-5.1) mmol/L Chloride (98-107) mmol/L Carbon Dioxide (21-32) mmol/L Anion Gap (3-11) BUN (6-23) mg/dl Creatinine (0.6-1.2) mg/dl Est Cr Clr Drug Dosing ml/min Est GFR ( Amer) ml/min Est GFR (Non-Af Amer) ml/min BUN/Creatinine Ratio (10-20) Glucose (70-99(Fasting)) mg/dl Lactate (0.4-2.0) mmol/L Calcium (8.6-10.3) mg/dl Magnesium (1.7-2.4) mg/dl Total Bilirubin (0.2-1.0) mg/dl AST (13-39) U/L ALT (7-52) U/L Alkaline Phosphatase (34-104) U/L Troponin I High Sens (0-14) pg/ml Total Protein (6.0-8.3) gm/dl Albumin (3.4-5.0) gm/dl Globulin (2.5-4.0) gm/dl Albumin/Globulin Ratio (0.9-2) Procalcitonin (0-0.5) ng/ml Urine Color Urine Appearance (Clear) Urine pH (4.5-7.5) Ur Specific [place] (1.000-1.030) Urine Protein (Negative) Urine Glucose (UA) (Negative) Urine Ketones (Negative) Urine Blood (Negative) Urine Nitrite (Negative) Urine Bilirubin (Negative) Urine Urobilinogen (Negative) Ur Leukocyte Esterase (Negative) Salicylates (3.0-30) mg/dl Urine Opiates Screen (Neg) Ur Methadone, Qual (Neg) Urine Fentanyl Screen (Neg) Acetaminophen (10-30) ug/ml Urine Barbiturates (Neg) Ur Phencyclidine (PCP) (Neg) U Amphetamin/Meth Scrn (Neg) MDMA (Ecstasy) Screen (Neg) U Benzodiazepines Scrn (Neg) Ur Cocaine Metabolite (Neg) U Marijuana (THC) Screen (Neg) Administered Medications Discontinued Medications Sodium Chloride (Nss) 1,000 mls @ 999 mls/hr IV .[id number] ONE Stop: 05/26/24 20:18 Last Infusion: 05/26/24 20:27 Dose: Infused Documented By: Admin: 05/26/24 19:25 Dose: 999 mls/hr Documented By: KARL Imaging Data Radiologist's Impression: Chest X-Ray 05/26/24 18:15 XR chest 1V portable HISTORY: altered mental status COMPARISON: Chest 04/04/2024. FINDINGS: No pneumothorax. No pleural effusions. The heart remains mildly enlarged. No focal lung consolidations to suggest a pneumonia. No evidence for pulmonary edema. Stable interstitial prominence. This is likely chronic. No acute fractures identified. IMPRESSION: No significant change compared to the prior study. No acute process. Stable cardiomegaly. ACT 112: Negative or not required by law. Electronically signed by: Otis Pierre M.D. 05/26/2024 6:[address] 05/26/24 18:[address] DOSE: 547.75 mGy.cm HISTORY: altered mental status TECHNIQUE: Multiaxial CT images of the head were performed without the use of intravenous contrast. Automated exposure control was utilized for this study. A dose lowering technique was utilized adhering to the principles of ALARA. Comparison: Head CT 04/04/2024. Findings: The paranasal sinuses and mastoid air cells are clear. The calvarium and skull base are intact. There is no mass, hematoma, midline shift, or acute infarct. Scattered old infarcts are again noted. Mild microvascular ischemic changes remain stable. The ventricles are normal in size. Impression: No significant change compared to the prior study. No acute intracranial abnormality. Old infarcts again noted. ACT 112: Negative or not required by law. Electronically signed by: Otis Pierre M.D. 05/26/2024 6:46 PM Discharge Plan Visit Data Chief Complaint: Confusion Stated Complaint: AMS ED Provider: Arianna Larios Discharge Problem: AMS (altered mental status), Elevated lactic acid level, Elevated serum creatinine, Acute dehydration Forms Stand Alone Forms: My [facility] Prescriptions Prescriptions: No Action carvedilol 3.125 mg tablet 3.125 mg PO BID Rx Instructions: must administer with a meal/food paroxetine HCl 20 mg tablet 20 mg PO HS rosuvastatin 20 mg tablet 20 mg PO HS clopidogrel 75 mg Tablet 75 mg PO QAM Qty: 30 0RF metformin 1,000 mg tablet 1,000 mg PO QAM cholecalciferol (vitamin D3) [Vitamin D3] 25 mcg (1,000 unit) Capsule 25 mcg PO QAM multivit with min-folic acid [Adult Multivitamin Gummies] 200 mcg Tablet,Chewable 1 tab PO QAM levothyroxine [Synthroid] 25 mcg tablet 25 mcg PO DAILYBB Rx Instructions: for underactive thyroid gland magnesium oxide 400 mg (241.3 mg magnesium) Tablet 400 mg PO BID Qty: 0 0RF acetaminophen 325 mg tablet 650 mg PO Q4H MDD 3 GRAMS APAP/24 HOURS PRN (Reason: Pain/Fever) loperamide 2 mg capsule 4 mg PO DAILY MDD 8mg/24hr PRN (Reason: Diarrhea) omeprazole 40 mg capsule,delayed release(DR/EC) 40 mg PO DAILYBB magnesium hydroxide [Milk of Magnesia] 400 mg/5 mL suspension 2,400 mg PO UD PRN (Reason: Constipation) Rx Instructions: Take 30ml by mouth every 3rd day with no bowel movement dextromethorphan-guaifenesin [Mucinex DM] 60-1,200 mg Tablet Extended Release 12 Hr 1 tab PO BID PRN (Reason: Cough/Congestion) hydroxyzine HCl 25 mg tablet 25 mg PO TID PRN (Reason: Itching) Hold Instructions: Resume on 03/03/24. hold until follow up discussion with primary care insulin glargine [Lantus Solostar U-100 Insulin] 100 unit/mL (3 mL) insulin pen 10 unit SUBCUT HS Lubriderm Daily Moisture Lotion 1 applic TOPICAL BID donepezil 5 mg tablet 5 mg PO HS diclofenac sodium 1 % gel 2 g topical QID PRN (Reason: Pain) furosemide [Lasix] 40 mg Tablet 80 mg PO QAM PRN (Reason: EDEMA/WT GAIN) potassium chloride 20 mEq Tablet,Er Particles/Crystals 20 meq PO QAM PRN (Reason: WHEN GIVEN LASIX) Referrals Referrals: Bonifacio Ibanez DO [Primary Care Provider] -
[2024-05-26 18:35] LABS: Basophils # (auto) 0.07 K/uL (0.00-0.20); Eosinophils # (auto) 0.17 K/uL (0.00-0.50); Eosinophils % (auto) 2.5 %; Hematocrit (blood only) 35.1 % (37.0-47.0); Immature Granulocytes # (auto) 0.02 K/uL (0.01-0.20); Immature Granulocytes % (auto) 0.3 %; Lymphocytes # (auto) 2.41 K/uL (1.20-3.40); Mean Corpuscular Hemoglobin 26.1 pg (25.0-34.0); Mean Corpuscular Hgb Conc 31.3 g/dL (32.0-36.0); Mean Corpuscular Volume 83.2 fL (80.0-100.0); Mean Platelet Volume 9.9 fL (9.4-12.4); Monocytes # (auto) 0.91 K/uL (0.11-0.59); Monocytes % (auto) 13.6 %; Neutrophils # (auto) 3.11 K/uL (1.40-6.50); Neutrophils % (auto) 46.6 %; Platelet Count 251 K/uL (130-400); RDW Coefficient of Variation 16.5 % (11.5-14.5); RDW Standard Deviation 49.4 fL (36.4-46.3); Red Blood Count 4.22 M/uL (4.20-5.40); White Blood Count 6.69 K/ul (4.8-10.8)
--- NOTE | 2024-05-26 18:47 | CT Scan Report ---
HEAD CT NONCONTRAST CT DOSE: 547.75 mGy.cm HISTORY: altered mental status TECHNIQUE: Multiaxial CT images of the head were performed without the use of intravenous contrast. A utomated exposure control was utilized for this study. A dose lowering technique was utilized adheri ng to the principles of ALARA. Comparison: Head CT 04/04/2024. Findings: The paranasal sinuses and mastoid air cells are clear. The calvarium and skull base are int act. There is no mass, hematoma, midline shift, or acute infarct. Scattered old infarcts are again no louie. Mild microvascular ischemic changes remain stable. The ventricles are normal in size. Impression: No significant change compared to the prior study. No acute intracranial abnormality. Old infarcts ag ain noted. ACT 112: Negative or not required by law. Electronically signed by: Otis Pierre M.D. 05/26/2024 6:46 PM
[2024-05-26 18:51] LABS: Acetaminophen < 3 ug/ml (10-30); Salicylate < 3.0 mg/dl (3.0-30)
--- NOTE | 2024-05-26 18:51 | XRay Report ---
XR chest 1V portable HISTORY: altered mental status COMPARISON: Chest 04/04/2024. FINDINGS: No pneumothorax. No pleural effusions. The heart remains mildly enlarged. No focal lung con solidations to suggest a pneumonia. No evidence for pulmonary edema. Stable interstitial prominence. This is likely chronic. No acute fractures identified. IMPRESSION: No significant change compared to the prior study. No acute process. Stable cardiomegaly. ACT 112: Negative or not required by law. Electronically signed by: Otis Pierre M.D. 05/26/2024 6:50 PM
[2024-05-26 18:54] LABS: Albumin Globulin Ratio 1.4 (0.9-2); Albumin Level 3.9 gm/dl (3.4-5.0); Bilirubin,Total 0.5 mg/dl (0.2-1.0); Calcium 9.8 mg/dl (8.6-10.3); Creatinine Clr Calc Pharmacy 46.2 ml/min; Est GFR (African American) 46.2 ml/min; Est GFR (Non-African American) 39.8 ml/min; Globulin 2.8 gm/dl (2.5-4.0); Magnesium 1.8 mg/dl (1.7-2.4); Potassium 4.2 mmol/L (3.5-5.1); Total Protein 6.7 gm/dl (6.0-8.3)
[2024-05-26 19:00] LABS: Troponin I High Sensitivity 10.1 pg/ml (0-14)
[2024-05-26] MEDS: SODIUM CHLORIDE 0.9% 1,000 ML IV ONE (19:25)
[2024-05-26 19:28] LABS: Prothrombin Time 10.6 Seconds (9.0-12.0)
[2024-05-26 19:31] LABS: Appearance Urine Clear (Clear); Bilirubin Urine Negative (Negative); Blood Urine Negative (Negative); Color Urine Yellow; Glucose Urine UA Negative (Negative); Ketones Urine Trace (Negative); Leukocyte Esterase Urine Negative (Negative); Nitrite Urine Negative (Negative); Protein Urine Negative (Negative); Specific Gravity Urine 1.014 (1.000-1.030); Urobilinogen Urine Negative (Negative); pH Urine 6.5 (4.5-7.5)
[2024-05-26 19:47] LABS: Base Excess VBG -0.4 mEq/L; HCO3 VBG 25 mmol/L; Oxygen Saturation VBG < 60.0 %; PCO2 VBG 42 mmHg (38-50); PO2 VBG 34 mmHg; pH VBG 7.38 (7.36-7.41)
--- NOTE | 2024-05-26 20:10 | History & Physical Report ---
Date of Service May 26, 2024 Assessment & Plan (1) Encephalopathy: Plan: Admit to [facility] Currently stable with mild increase in baseline confusion which is consistent with previous admissions when she is dehydrated No focal neuro defects on exam, CTA head and brain without contrast was negative for acute findings Exam and labs are consistent with dehydration No signs of infection including clear UA Status post 1 L NSS in the ED, will give 1 L LR overnight Fall/aspiration precautions PT/OT consults Heart healthy/DM type II diet due to texture Bilateral SCDs for DVT prophylaxis AM CBC, CMP, mag, PT/ (2) Elevated lactic acid level: Plan: Elevated at 2.4 on arrival Consistent with many previous admissions when she is dehydrated Continue IV fluids overnight Follow repeat lactate level this evening (3) Dehydration: Plan: Continue IV fluids overnight (4) HTN (hypertension): Plan: Stable continue carvedilol (5) Dementia: Plan: Continue donepezil (6) Diabetes: Plan: Monitor BSG ACHS, goal [id number] Hold metformin Start CF 50 and CR 15 ACHS Adjust regimen as needed Plan The patient was discussed with Dr. Eagle at the time of admission History of Present Illness Chief Complaint: [facility] Primary Care Provider: Bonifacio Ibanez DO Deanna is an 78 year old female with a PMH significant for Vascular Dementia, seizure disorder as a complication of previous CVA, recurrent UTI's, DM, HTN, HFpEF, HLP, Hypothyroidism and GERD who presented to the [facility] ED on 05/26/24 via EMS from her personal-residential due to increased confusion. She was initially noted to be hypertensive on arrival at 181/109 tachypneic at 26, but otherwise stable. Labs were significant for creatinine 1.27 (baseline is near 1.0), glucose of 183, lactate of 2.4, UA with trace ketones but otherwise unremarkable. CT of the head and brain without contrast and chest x-ray were read as negative for acute findings. Prior to admission the patient was given 1 L normal saline. Patient was lying in bed in no acute distress at time of exam with her daughter/POA bedside, history was primarily obtained from the patient's daughter. The patient has a long history of encephalopathy when she has UTIs or becomes dehydrated. Staff reports the patient has been eating well but has not been drinking fluids like she should. Patient was in the cafeteria eating during she suddenly became less responsive. Patient is currently awake and alert during my exam. Daughter confirms that she is near her baseline just appears more fatigued than usual. Patient's only complaint at this time is some chronic neck pain but is otherwise without complaints. Daughter confirms patient is a full code. Please refer to Dr. Eagle's attestation for any changes to treatment plan Allergies Allergy/AdvReac Type Severity Reaction Status Date / Time aspirin Allergy Severe Hives Verified 04/04/24 16:15 NSAIDS (Non-Steroidal Allergy Intermediate Hives Verified 04/04/24 16:15 Anti-Inflamma Penicillins Allergy Intermediate Hives Verified 04/04/24 16:15 vancomycin Allergy Intermediate Redness of Verified 04/04/24 16:15 Skin fenofibrate Allergy Unknown ON PT MED Verified 04/04/24 16:15 LIST naproxen Allergy Unknown Unknown - Verified 04/04/24 16:15 On Med List from [facility] propoxyphene Allergy Unknown ON PT MED Verified 04/04/24 16:15 LIST Home Medications Medication Instructions Recorded Confirmed Type carvedilol 3.125 mg tablet 3.125 mg PO BID 01/29/22 05/26/24 History paroxetine HCl 20 mg tablet 20 mg PO HS 01/29/22 05/26/24 History rosuvastatin 20 mg tablet 20 mg PO HS 01/29/22 05/26/24 History metformin 1,000 mg tablet 1,000 mg PO QAM 01/14/23 05/26/24 History cholecalciferol (vitamin D3) 25 25 mcg PO QAM 03/17/23 05/26/24 History mcg (1,000 unit) capsule (Vitamin D3) levothyroxine 25 mcg tablet 25 mcg PO DAILYBB 03/17/23 05/26/24 History (Synthroid) multivitamin with minerals-folic 1 tab PO QAM 03/17/23 05/26/24 History acid 200 mcg chewable tablet (Adult Multivitamin Gummies) magnesium oxide 400 mg (241.3 mg 400 mg PO BID #0 tabs 03/20/23 05/26/24 Rx magnesium) tablet clopidogrel 75 mg tablet 75 mg PO QAM #30 tabs 04/28/23 05/26/24 Rx diclofenac sodium 1 % topical gel 2 g topical QID PRN Pain 02/05/24 05/26/24 History donepezil 5 mg tablet 5 mg PO HS 02/05/24 05/26/24 History emollient combination no.92 1 applic topical BID Dry skin - 02/05/24 05/26/24 History (Lubriderm Daily Moisture lotion) Legs insulin glargine 100 unit/mL (3 10 unit subcut HS 02/05/24 05/26/24 History mL) subcutaneous pen (Lantus Solostar U-100 Insulin) loperamide 2 mg capsule 2 mg PO UD PRN Diarrhea 02/05/24 05/26/24 History omeprazole 40 mg capsule,delayed 40 mg PO DAILYBB 02/05/24 05/26/24 History release Past Med/Surg History Problem List (Updated 05/26/24 @ 20:41 by Neal Mohr PA-C) Dehydration Encephalopathy Elevated lactic acid level (Acute) Acute UTI (Acute) Sepsis (Acute) UTI (urinary tract infection) (Acute) Recurrent UTI (urinary tract infection) Ascending aorta dilatation Discussion about advance care planning held with family member Palliative care by specialist Confusion Cerebrovascular disease HLD (hyperlipidemia) GERD (gastroesophageal reflux disease) CHF (congestive heart failure) UTI (urinary tract infection), uncomplicated Generalized weakness Gait apraxia Stroke 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 Neuropathy Fatigue Hypomagnesemia (Acute) Infarction of kidney (Acute) Bladder spasms Depression Confusion and disorientation Seizure-like activity Hypotension Leg swelling AMS (altered mental status) (Acute) Acute hypotension (Acute) Elevated lactic acid level (Acute) SKY (acute kidney injury) Acute metabolic encephalopathy Morbid obesity Prolonged PTT Cerebrovascular disease Abnormal brain MRI Nonobstructive atherosclerosis of coronary artery LBBB (left bundle branch block) Thoracic aortic aneurysm Bilateral leg edema Medical History Discussion about advance care planning held with family member Palliative care by specialist Confusion Strain of rotator cuff of right shoulder Hypothyroidism CHF (congestive heart failure) Depression Bladder spasms GERD (gastroesophageal reflux disease) No pertinent family history Diabetes HLD (hyperlipidemia) HTN (hypertension) 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 Dementia Surgical History S/P colonoscopy S/P hysterectomy S/P appendectomy History of back surgery Status post right knee replacement No pertinent past surgical history Social History Smoking Status: Never smoker Second Hand Exposure: No; Do You Dip or Chew Tobacco: No; Hx Alcohol Use: No Hx Substance Use: No Preferred Language: Welsh Communication Ability: Effective Visual Impairment: No Limitations Hearing Ability: Normal Senior Storage Engineer Required: No Beliefs That Will Affect Care: None marital status: / Current Living Situation: Personal Care Facility Current Living Situation Comment: At [facility] current occupational status: retired Feels Safe at Home: Yes Childhood Exposure to Second-Hand Smoke: No Diet: diabetic Dental Care, Regularly: No Physical Activity Frequency: Does not Exercise Seatbelt Use: always Sunscreen Use: No Assistive Devices: Walker Physical Exam Physical Exam: Physical Exam: General: In no acute distress, stated age, well-nourished, nontoxic-appearing HEENT: Normocephalic, atraumatic, no scleral icterus, pupils around round, symmetrical, and reactive to light, dry mucus membranes, trachea midline, no thyromegaly Chest/Pulm: No respiratory distress, symmetrical chest expansion, clear breath sounds throughout Cardiac: RRR, no murmurs noted Abdomen: Negative for ascites and bruising, normoactive bowel sounds, soft, non-tender to palpation throughout Musculoskeletal: Symmetrical and without signs of acute trauma, upper and lower extremities with full ROM, no atrophy, spasticity, or flaccidity > No tenderness to palpation over the cervical spine but notes tenderness on palpation of the bilateral paraspinal cervical muscles Extremities: Radial, dorsalis pedis, and posterior tibial pulses are intact and symmetrical, no edema noted in the BL LE's Skin: Warm, dry, no rashes , lesions, or scars noted Neuro: Alert and oriented to person and is able to identify daughter (is her baseline), no focal defects, CN II-XII tested and intact, symmetrical strength in the bilateral upper and lower extremities, no tremors noted Psych: No acute distress, calm and cooperative during the exam Results & Data Results & Data Vital Signs (Past 12 Hours) Vital Signs Temp Pulse Pulse Resp BP BP Pulse Ox 05/26/24 19:00 138/79 05/26/24 18:41 85 26 H 96 05/26/24 18:37 64 13 141/113 H 96 05/26/24 18:22 82 05/26/24 18:10 36.4 C 87 20 181/109 H 96 O2 Del Method 05/26/24 19:00 05/26/24 18:41 Room Air 05/26/24 18:37 Room Air 05/26/24 18:22 05/26/24 18:10 Room Air Laboratory Results Abnormal lab results 05/26/24 05/26/24 05/26/24 Range/Units 18:20 18:50 19:00 Hgb 11.0 L (12.0-16.0) g/dl Hct 35.1 L (37.0-47.0) % MCHC 31.3 L (32.0-36.0) g/dL RDW Std Deviation 49.4 H (36.4-46.3) fL RDW Coeff of Sam 16.5 H (11.5-14.5) % [place] # (Auto) 0.91 H (0.11-0.59) K/uL Creatinine 1.27 H (0.6-1.2) mg/dl Glucose 183 H (70-99(Fasting)) mg/dl Lactate 2.4 H* (0.4-2.0) mmol/L Urine Ketones Trace H (Negative) Salicylates < 3.0 L (3.0-30) mg/dl Acetaminophen < 3 L (10-30) ug/ml Diagnostic Findings Chest X-Ray 05/26/24 18:15 XR chest 1V portable HISTORY: altered mental status COMPARISON: Chest 04/04/2024. FINDINGS: No pneumothorax. No pleural effusions. The heart remains mildly enlarged. No focal lung consolidations to suggest a pneumonia. No evidence for pulmonary edema. Stable interstitial prominence. This is likely chronic. No acute fractures identified. IMPRESSION: No significant change compared to the prior study. No acute process. Stable cardiomegaly. ACT 112: Negative or not required by law. Electronically signed by: Otis Pierre M.D. 05/26/2024 6:[address] 05/26/24 18:[address] DOSE: 547.75 mGy.cm HISTORY: altered mental status TECHNIQUE: Multiaxial CT images of the head were performed without the use of intravenous contrast. Automated exposure control was utilized for this study. A dose lowering technique was utilized adhering to the principles of ALARA. Comparison: Head CT 04/04/2024. Findings: The paranasal sinuses and mastoid air cells are clear. The calvarium and skull base are intact. There is no mass, hematoma, midline shift, or acute infarct. Scattered old infarcts are again noted. Mild microvascular ischemic changes remain stable. The ventricles are normal in size. Impression: No significant change compared to the prior study. No acute intracranial abnormality. Old infarcts again noted. ACT 112: Negative or not required by law. Electronically signed by: Otis Pierre M.D. 05/26/2024 6:46 PM Code Status & VTE Plan Code Status Full code VTE Prophylaxis Plan VTE Prophylaxis will be ordered: Yes Supervising Physician Co-Signing Physician Notes Attending addendum: I have physically seen this patient, have supervised the MARVA's activities, and agree with the H&P unless as otherwise noted. Assessment and Plan: Metabolic encephalopathy/acute dehydration- Similar to previous presentations CT scan brain without contrast without acute findings Laboratories showing acute kidney injury with dehydration Status post 1 L normal saline in ED, to receive additional liter of LR Consult PT/OT for generalized deconditioning Repeat laboratories in a.m. Follow-up urine culture sensitivity Mild lactic acidosis- lactate 2.4 at admission with follow-up pending post IV fluids Hypertension- Continue carvedilol with hold parameters Diabetes mellitus- Holding metformin Accu-Cheks and coverage as noted PG Care Time/CCT Total # of Minutes Spent Total Time Spent with Patient: Total time spent is greater than 50% in coordination of care (as documented) at patient's floor/unit and/or counseling patient: Coding [place] [address] INT INP/OBS CARE 2/55MIN Patient Type Established Medical Decision Making Moderate Complexity Diagnoses Encephalopathy G93.40 Elevated lactic acid level R79.89 Dehydration E86.0 HTN (hypertension) I10 Dementia F03.90 Diabetes E11.9
[2024-05-26 20:34] LABS: Amphetamines+Metham, Urine Neg (Neg); Barbiturates, Urine Neg (Neg); Benzodiazepine, Urine Neg (Neg); Cocaine, Urine Neg (Neg); Fentanyl, Urine Neg (Neg); MDMA (Ecstacy), Urine Neg (Neg); Marijuana, Urine Neg (Neg); Methadone, Urine Neg (Neg); Opiate, Urine Neg (Neg); Phencyclidine, Urine Neg (Neg)
[2024-05-26] MEDS: ACETAMINOPHEN 325 MG TAB PO STA (21:13)
[2024-05-26] MEDS: LIDOCAINE 5% 1 PATCH TD STA (21:14)
[2024-05-26] MEDS: LACTATED RINGER'S 1,000 ML IV SCH (21:14)
[2024-05-26] MEDS ORDERED: ACETAMINOPHEN 325 MG TAB PO PRN (22:32)
[2024-05-26 22:52] VITALS: TEMP 97.7
[2024-05-27] MEDS ORDERED: DEXTROSE 50% 50 ML SYRINGE IV PRN (00:45)
[2024-05-27] MEDS ORDERED: GLUCOSE 10 TAB/TUBE PO PRN (00:45)
[2024-05-27] MEDS ORDERED: CARBOHYDRATES FOR HYPOGLYCEMIA PO PRN (00:45)
[2024-05-27] MEDS ORDERED: GLUCAGON FOR INJ 1 MG VIAL SQ PRN (00:45)
[2024-05-27] MEDS ORDERED: GLUCOSE 40% GEL 15 GM TUBE PO PRN (00:45)
[2024-05-27] MEDS: PANTOprazole 40 MG TAB PO SCH (05:31)
[2024-05-27] MEDS: LEVOTHYROXINE SODIUM 25 MCG TABLET PO SCH (05:32)
[2024-05-27 07:24] VITALS: BP 153/73; PULSE 69; RESP 20; O2SAT 93
--- NOTE | 2024-05-27 08:05 | Electrocardiogram Report ---
Test Reason : Blood Pressure : */* mmHG Vent. Rate : 69 BPM Atrial Rate : 69 BPM P-R Int : 210 ms QRS Dur : 138 ms QT Int : 466 ms P-R-T Axes : 34 0 90 degrees QTcB Int : 499 ms Sinus rhythm with 1st degree A-V block with occasional Premature ventricular complexes Left bundle branch block Abnormal ECG When compared with ECG of 16-Feb-2024 12:55, No significant change was found Confirmed by Gregorio Stokes ([id number]) on 05/27/2024 8:04:37 AM Referred By: REFERRED SELF Confirmed By: Gregorio Stokes
[2024-05-27] MEDS: CLOPIDOGREL BISULFATE 75 MG TAB PO SCH (08:52)
[2024-05-27] MEDS: carvediloL 3.125 MG TAB PO SCH (08:52)
[2024-05-27] MEDS: INSULIN ASPART PER UNIT CHARGE SC SCH (08:53)
[2024-05-27 09:26] LABS: Basophils # (auto) 0.07 K/uL (0.00-0.20); Basophils % (auto) 1.4 %; Eosinophils # (auto) 0.21 K/uL (0.00-0.50); Eosinophils % (auto) 4.1 %; Hematocrit (blood only) 33.6 % (37.0-47.0); Hemoglobin 10.7 g/dl (12.0-16.0); Immature Granulocytes # (auto) 0.01 K/uL (0.01-0.20); Immature Granulocytes % (auto) 0.2 %; Lymphocytes # (auto) 1.84 K/uL (1.20-3.40); Lymphocytes % (auto) 35.7 %; Mean Corpuscular Hemoglobin 25.9 pg (25.0-34.0); Mean Corpuscular Hgb Conc 31.8 g/dL (32.0-36.0); Mean Corpuscular Volume 81.4 fL (80.0-100.0); Mean Platelet Volume 10.1 fL (9.4-12.4); Monocytes # (auto) 0.68 K/uL (0.11-0.59); Monocytes % (auto) 13.2 %; Neutrophils # (auto) 2.35 K/uL (1.40-6.50); Neutrophils % (auto) 45.4 %; Platelet Count 248 K/uL (130-400); RDW Coefficient of Variation 16.5 % (11.5-14.5); RDW Standard Deviation 48.8 fL (36.4-46.3); Red Blood Count 4.13 M/uL (4.20-5.40); White Blood Count 5.16 K/ul (4.8-10.8)
[2024-05-27 09:44] LABS: BUN Creatinine Ratio 12.2 (10-20); Calcium 9.1 mg/dl (8.6-10.3); Creatinine Clr Calc Pharmacy 64.4 ml/min; Est GFR (Non-African American) 60.4 ml/min; Potassium 3.8 mmol/L (3.5-5.1)
[2024-05-27 10:20] LABS: Estimated Average Glucose 189 mg/dl; Hemoglobin A1C 8.2 % (4.5-5.6)
--- NOTE | 2024-05-27 10:43 | Discharge Summary ---
Discharge Summary Date of Service May 27, 2024 Principal Dx & Hospital Course #1 = Principal Diagnosis (1) Encephalopathy: Patient presented to the ED on 05/26 following a onset of increased confusion at her personal nursing home. Exam and labs consistent with dehydration. Negative urinalysis. She was given 1L NSS in the ED and 1L LR overnight. Patient stable AxOx3 day of discharge and no complaints. PT recommended she return to her personal care facility. (2) Elevated lactic acid level: Elevated at 2.4 on arrival and returned to 1.5 on repeat. Consistent with previous admissions when she is dehydrated. (3) Dehydration: Continue IV fluids overnight (4) HTN (hypertension): Stable continue carvedilol (5) Dementia: Continue donepezil (6) Diabetes: Monitor BSG ACHS, goal [id number] Hold metformin Start CF 50 and CR 15 ACHS Adjust regimen as needed Plan Spoke with patients daughter via phone 05/27 and updated her on discharge instructions. Admission HPI Per Admitting Provider Deanna is an 78 year old female with a PMH significant for Vascular Dementia, seizure disorder as a complication of previous CVA, recurrent UTI's, DM, HTN, HFpEF, HLP, Hypothyroidism and GERD who presented to the [facility] ED on 05/26/24 via EMS from her personal-nursing home due to increased confusion. She was initially noted to be hypertensive on arrival at 181/109 tachypneic at 26, but otherwise stable. Labs were significant for creatinine 1.27 (baseline is near 1.0), glucose of 183, lactate of 2.4, UA with trace ketones but otherwise unremarkable. CT of the head and brain without contrast and chest x-ray were read as negative for acute findings. Prior to admission the patient was given 1 L normal saline. Patient was lying in bed in no acute distress at time of exam with her daughter/POA bedside, history was primarily obtained from the patient's daughter. The patient has a long history of encephalopathy when she has UTIs or becomes dehydrated. Staff reports the patient has been eating well but has not been drinking fluids like she should. Patient was in the cafeteria eating during she suddenly became less responsive. Patient is currently awake and alert during my exam. Daughter confirms that she is near her baseline just appears more fatigued than usual. Patient's only complaint at this time is some chronic neck pain but is otherwise without complaints. Daughter confirms patient is a full code. Please refer to Dr. Eagle's attestation for any changes to treatment plan Discharge Exam Constitutional WD/WN, vitals as above Eyes PERRL, conjunctivae normal, anicteric sclerae Respiratory normal respiratory effort, lungs clear to auscultation Cardiovascular RRR, no murmur, no edema Skin no rashes, warm and dry Psychiatric A+Ox3, euthymic affect Discharge Plan Discharge Items Patient Disposition: Personal Senior Care Reason For Visit: METABOLIC ENCEPHALOPATHY Discharge Diagnosis: Dehydration Activity: Resume your previous activity Non-emergency contact: Primary Care Provider Call non-emergency contact if: you have any medication questions and your symptoms worsen Follow-up/Referrals: Bonifacio Ibanez, [Primary Care Provider] - 06/02/24 11:20 am Diet: Carb Consistent or DM2 and Heart Healthy Diet Texture: Easy to Chew Addtl Attending Provider Instructions: Ms. Mccormack, You were recently admitted to the hospital for increased amounts of confusion. You were found to be dehydrated. This was corrected with IV fluids. Please see recommendations below upon discharge. 1. Please remember to intake plenty of fluids to avoid further dehydration. 2. Please resume your outpatient medications as prescribed. If you develop any fever, chills, chest pain, shortness of breath please report back to the ER for further evaluation. Sincerely, Eri Barnhart PA-C Pending Studies at Discharge: No Stand-Alone Forms: My [facility] [employer] Smoking Cessation Skilled Items Patient informed of condition?: Yes DNR: No Discharge Level of Care: Other Communicable Disease: No Discharge Prognosis: Improving Lines: None Urinary Catheter: No Medications and DC Order Prescriptions: Continued carvedilol 3.125 mg tablet 3.125 mg PO BID Rx Instructions: must administer with a meal/food paroxetine HCl 20 mg tablet 20 mg PO HS rosuvastatin 20 mg tablet 20 mg PO HS clopidogrel 75 mg Tablet 75 mg PO QAM Qty: 30 0RF metformin 1,000 mg tablet 1,000 mg PO QAM cholecalciferol (vitamin D3) [Vitamin D3] 25 mcg (1,000 unit) Capsule 25 mcg PO QAM multivit with min-folic acid [Adult Multivitamin Gummies] 200 mcg Tablet,Chewable 1 tab PO QAM levothyroxine [Synthroid] 25 mcg tablet 25 mcg PO DAILYBB Rx Instructions: for underactive thyroid gland magnesium oxide 400 mg (241.3 mg magnesium) Tablet 400 mg PO BID Qty: 0 0RF loperamide 2 mg capsule 2 mg PO UD MDD 8mg/24hrs PRN (Reason: Diarrhea) Rx Instructions: 1 capsule after each additional loose stool omeprazole 40 mg capsule,delayed release(DR/EC) 40 mg PO DAILYBB insulin glargine [Lantus Solostar U-100 Insulin] 100 unit/mL (3 mL) insulin pen 10 unit SUBCUT HS Lubriderm Daily Moisture Lotion 1 applic TOPICAL BID donepezil 5 mg tablet 5 mg PO HS diclofenac sodium 1 % gel 2 g topical QID PRN (Reason: Pain) Discontinued dextromethorphan-guaifenesin [Mucinex DM] 60-1,200 mg Tablet Extended Release 12 Hr 1 tab PO BID PRN (Reason: Cough/Congestion) Discharge Orders: Discharge Order (Routine); Ordered 05/27/24 Ordered By: Eri Barnhart Admission Data Admit Date/Time: 05/26/24 20:29 Attending Provider: Karolina Carrasco Admit Provider: Jon Eagle Primary Care Provider: Bonifacio Ibanez Other Providers: Jon Eagle; Aaron Mendez Other Interventions: Discharge Summary Assessment (RN) Last Done: 05/27/24 11:01 Hospital Stay Data Consultations 05/26/24 20:02 ED Decision to Admit Stat Diagnostic Imagining Performed 05/26/24 18:15 CT head/brain wo con Stat Pending Results Patient Have Any Pending Studies at Discharge: No Discharge Instructions Given to Patient (Per Discharging Provider) Ms. Mccormack, Xavier were recently admitted to the hospital for increased amounts of confusion. You were found to be dehydrated. This was corrected with IV fluids. Please see recommendations below upon discharge. 1. Please remember to intake plenty of fluids to avoid further dehydration. 2. Please resume your outpatient medications as prescribed. If you develop any fever, chills, chest pain, shortness of breath please report back to the ER for further evaluation. Sincerely, Eri Barnhart PA-C Total Time Total Time Spent Total Time Spent (In Minutes): 35 Total Time Includes: Examination of the Patient, Discharge Planning and Medication Reconciliation Coding Level of Care Code 24954 INP/OBS DISCH >30 MIN Diagnoses Encephalopathy G93.40 Elevated lactic acid level R79.89 Dehydration E86.0 HTN (hypertension) I10 Dementia F03.90 Diabetes E11.9
[2024-05-27] MEDS ORDERED: PARoxetine HCL 20 MG TAB PO SCH (21:00)
== END 2024-05-27 11:25 | disposition home or self-care (01) ==
LOC: ED 18:06 → 3N 18:06 → SUATTDRO 20:29 → 3N 21:47

== ENCOUNTER 2024-06-01 12:21 | Observation (INO) ==
--- NOTE | 2024-06-01 12:36 | Emergency Department Note ---
Impression & Plan AMS (altered mental status), Dementia, Anemia ED Provider Note NAME: ANTONIO BILL AGE: 78 SEX: F : 1945 ARRIVES VIA: Ambulance INFORMANT: Patient ED PROVIDER(S): Sanjay Lai DO CHIEF COMPLAINT: Unresponsive HPI: Patient is an 78-year-old female with a past medical history of syncope, encephalopathy, UTI, confusion, GERD, CHF who presents to the ER for episodes of unresponsiveness. Patient was brought in by EMS. They note that she was unresponsive for a brief period of time. She denies any headache, neck pain, chest pain, belly pain or urinary symptoms. She denies any weakness or numbness in the arms or legs. No other exacerbating or remitting factors. Daughter present for additional history and notes that patient has been admitted to [facility] for something similar within the past week and was unremarkable workup. ADDITIONAL HISTORY OBTAINED: Per HPI Chronic Medical/Social Conditions Affecting Care: Per HPI PAST MEDICAL HISTORY:See Below PAST SURGICAL HISTORY:See Below FAMILY HISTORY:See Below SOCIAL HISTORY:See Below HOME MEDICATIONS:See Below ALLERGIES:See Below VITALS:See Below PHYSICAL EXAMINATION: GENERAL: Laying in bed eyes closed not moving extremities HEAD: NC/AT EYE EXAM: normal conjunctiva. PERRL and EOM's grossly intact. OROPHARYNX: no exudate, no erythema, lips, buccal mucosa, and tongue normal and mucous membranes are moist NECK: supple, no nuchal rigidity, no adenopathy, non-tender LUNGS: Clear to auscultation. Normal chest wall mechanics HEART: no murmurs, S1 normal and S2 normal ABDOMEN: abdomen soft, non-tender, normo-active bowel sounds, no masses, no rebound or guarding. BACK: Back is symmetrical on inspection and there is no deformity, no midline tenderness, no CVA tenderness. UPPER EXTREMITIES: upper extremities are grossly normal. LOWER EXTREMITIES: No pitting edema. NEURO EXAM: Opens eyes to sternal rub and yells out and moves all extremities MEDICAL DECISION MAKING: Patient is an 78-year-old female who presents ER for the above-stated complaint. IV was established blood was obtained. Labs show no significant leukocytosis and mild anemia 10.5. VBG with a pH of 7.43. No significant acidosis. BMP with slightly elevated glucose at 150. LFTs bilirubin was unremarkable. Troponin was negative. Lipase normal. UA was clean. CT of the head was negative. Chest x-ray was clean. Patient was given IV fluids. Upon arrival to the ER she was completely intact. I updated the daughter at bedside additional history was obtained from her. I discussed case with the hospitalist for further evaluation management treatment. At no point in the ER which she unresponsive however sometimes she would not open her eyes or talk unless physically stimulated. Consults/Care Managements Discussions: Per MDM Triage Nursing notes reviewed. Limited review of prior medical records performed Vital Signs: reviewed and remarkable for no significant abnormalities Differential diagnosis: Infection, dehydration, metabolic abnormality, hypo/hyperglycemia, electrolyte disturbance, anemia, hypoxia, cardiac sources, intracerebral event, toxicologic, neurologic, as well as other pathologies. ER treatment provided: See below Diagnostics interpreted by me include EKG and cardiac monitoring as listed below: -Cardiac Monitoring: An order was placed for continuous cardiac monitoring. The monitor shows a rate of 90 with sinus rhythm. -ECG: Sinus rhythm rate of 69 PVC Normal axis Left bundle branch block QTc 499 -Laboratory studies:Interpreted by me as stated above in MDM and shown below. Imaging studies: Xrays: As interpreted by me: Portable AP upright 1 view of the chest shows no focal infiltrate CTs show: CT of the head was negative Procedures:none Critical Care: None Past Med/Surg History Problem List (Updated 06/01/24 @ 18:47 by Sanjay Lai DO) Anemia (Acute) AMS (altered mental status) (Acute) Hypothyroidism HTN (hypertension) Dementia (Acute) Diabetes Unresponsive episode Syncope Dehydration Encephalopathy Elevated lactic acid level (Acute) Acute UTI (Acute) Sepsis (Acute) UTI (urinary tract infection) (Acute) Recurrent UTI (urinary tract infection) Ascending aorta dilatation Discussion about advance care planning held with family member Palliative care by specialist Confusion Cerebrovascular disease HLD (hyperlipidemia) GERD (gastroesophageal reflux disease) CHF (congestive heart failure) UTI (urinary tract infection), uncomplicated Generalized weakness Gait apraxia Stroke 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 Neuropathy Fatigue Hypomagnesemia (Acute) Infarction of kidney (Acute) Bladder spasms Depression Confusion and disorientation Seizure-like activity Hypotension Leg swelling AMS (altered mental status) (Acute) Acute hypotension (Acute) Elevated lactic acid level (Acute) SKY (acute kidney injury) Acute metabolic encephalopathy Morbid obesity Prolonged PTT Cerebrovascular disease Abnormal brain MRI Nonobstructive atherosclerosis of coronary artery LBBB (left bundle branch block) Thoracic aortic aneurysm Bilateral leg edema Medical History Discussion about advance care planning held with family member Palliative care by specialist Confusion Strain of rotator cuff of right shoulder Hypothyroidism CHF (congestive heart failure) Depression Bladder spasms GERD (gastroesophageal reflux disease) No pertinent family history Diabetes HLD (hyperlipidemia) HTN (hypertension) 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 Dementia Surgical History S/P colonoscopy S/P hysterectomy S/P appendectomy History of back surgery Status post right knee replacement No pertinent past surgical history Social History Smoking Status: Former smoker Second Hand Exposure: No; Do You Dip or Chew Tobacco: No; Hx Alcohol Use: No Hx Substance Use: No Preferred Language: Uzbek Communication Ability: Effective Visual Impairment: No Limitations Hearing Ability: Normal Hand Stoner Required: No Beliefs That Will Affect Care: None marital status: / Current Living Situation: Personal Care Facility Current Living Situation Comment: At [facility] facility current occupational status: retired Feels Safe at Home: Yes Childhood Exposure to Second-Hand Smoke: No Diet: diabetic Dental Care, Regularly: No Physical Activity Frequency: Does not Exercise Seatbelt Use: always Sunscreen Use: No Assistive Devices: Walker Allergies Allergies Allergy/AdvReac Type Severity Reaction Status Date / Time aspirin Allergy Severe Hives Verified 06/01/24 16:01 NSAIDS (Non-Steroidal Allergy Intermediate Hives Verified 06/01/24 16:01 Anti-Inflamma Penicillins Allergy Intermediate Hives Verified 06/01/24 16:01 vancomycin Allergy Intermediate Redness of Verified 06/01/24 16:01 Skin fenofibrate Allergy Unknown ON PT MED Verified 06/01/24 16:01 LIST naproxen Allergy Unknown Unknown - Verified 06/01/24 16:01 On Med List from [facility] propoxyphene Allergy Unknown ON PT MED Verified 06/01/24 16:01 LIST Home Meds Home Medications Medication Instructions Recorded Confirmed carvedilol 3.125 mg tablet 3.125 mg PO BID 01/29/22 06/01/24 paroxetine HCl 20 mg tablet 20 mg PO HS 01/29/22 06/01/24 rosuvastatin 20 mg tablet 20 mg PO HS 01/29/22 06/01/24 metformin 1,000 mg tablet 1,000 mg PO QAM 01/14/23 06/01/24 cholecalciferol (vitamin D3) 25 25 mcg PO QAM 03/17/23 06/01/24 mcg (1,000 unit) capsule (Vitamin D3) levothyroxine 25 mcg tablet 25 mcg PO DAILYBB 03/17/23 06/01/24 (Synthroid) multivitamin with minerals-folic 1 tab PO QAM 03/17/23 06/01/24 acid 200 mcg chewable tablet (Adult Multivitamin Gummies) diclofenac sodium 1 % topical gel 2 g topical QID PRN Pain 02/05/24 06/01/24 donepezil 5 mg tablet 5 mg PO HS 02/05/24 06/01/24 emollient combination no.92 1 applic topical BID Dry skin - 02/05/24 06/01/24 (Lubriderm Daily Moisture lotion) Legs insulin glargine 100 unit/mL (3 10 unit subcut HS 02/05/24 06/01/24 mL) subcutaneous pen (Lantus Solostar U-100 Insulin) loperamide 2 mg capsule 2 mg PO UD PRN Diarrhea 02/05/24 06/01/24 omeprazole 40 mg capsule,delayed 40 mg PO DAILYBB 02/05/24 06/01/24 release acetaminophen 325 mg tablet 650 mg PO Q4 PRN Fever Or Pain 06/01/24 06/01/24 (Tylenol) furosemide 40 mg tablet (Lasix) 80 mg PO QAM PRN .EDEMA/WT GAIN 06/01/24 06/01/24 hydroxyzine HCl 25 mg tablet 25 mg PO TID PRN ITCHYNESS 06/01/24 06/01/24 potassium chloride 20 mEq 20 meq PO DAILY PRN .When lasix is 06/01/24 06/01/24 tablet,extended release given Previous Rx's Medication Instructions Recorded magnesium oxide 400 mg (241.3 mg 400 mg PO BID #0 tabs 03/20/23 magnesium) tablet clopidogrel 75 mg tablet 75 mg PO QAM #30 tabs 04/28/23 Results & Data (ED) Vital Signs Vital Signs - 24 hr 06/01/24 12:28 06/01/24 12:30 06/01/24 12:31 Temperature 36.4 C L Temperature Source Oral Pulse Rate 85 86 80 Pulse Rate [Apical] Pulse Rate from SpO2 Sensor 75 Pulse Rhythm Regular Respiratory Rate 17 20 17 Respiratory Effort / Characteristics Non-Labored Respiratory Depth Normal Respiratory Pattern Regular Blood Pressure 145/116 H 145/116 H Blood Pressure [Left Radial Artery] Blood Pressure Mean 125 121 Blood Pressure Mean [Left Radial Artery] Pulse Oximetry 96 96 96 Oxygen Delivery Method Room Air Room Air Sepsis Recent Fever Within 48 Hours No Sepsis New/Unexplained Change in Mental Status N/A Sepsis Action Taken by Nursing No Action Required 06/01/24 12:41 06/01/24 13:08 06/01/24 14:13 Temperature Temperature Source Pulse Rate 80 71 Pulse Rate [Apical] 67 Pulse Rate from SpO2 Sensor 71 Pulse Rhythm Respiratory Rate 18 22 Respiratory Effort / Characteristics Non-Labored Spontaneous Respiratory Depth Normal Respiratory Pattern Blood Pressure 177/89 H Blood Pressure [Left Radial Artery] 168/89 H Blood Pressure Mean 118 Blood Pressure Mean [Left Radial Artery] 115 Pulse Oximetry 98 93 Oxygen Delivery Method Room Air Sepsis Recent Fever Within 48 Hours Sepsis New/Unexplained Change in Mental Status Sepsis Action Taken by Nursing Laboratory Data 06/01/24 12:37 06/01/24 12:37 Lab Results 06/01/24 06/01/24 06/01/24 Range/Units 12:37 12:44 12:49 WBC 6.02 (4.8-10.8) K/ul RBC 4.08 L (4.20-5.40) M/uL Hgb 10.5 L (12.0-16.0) g/dl Hct 33.3 L (37.0-47.0) % MCV 81.6 (80.0-100.0) fL MCH 25.7 (25.0-34.0) pg MCHC 31.5 L (32.0-36.0) g/dL RDW Std Deviation 49.0 H (36.4-46.3) fL RDW Coeff of Sam 16.5 H (11.5-14.5) % Plt Count 242 (130-400) K/uL MPV 10.3 (9.4-12.4) fL Immature Gran % (Auto) 0.3 % Neut % (Auto) 50.5 % Lymph % (Auto) 31.6 % [place] % (Auto) 13.3 % Eos % (Auto) 2.8 % Baso % (Auto) 1.5 % Neut # (Auto) 3.04 (1.40-6.50) K/uL Lymph # (Auto) 1.90 (1.20-3.40) K/uL [place] # (Auto) 0.80 H (0.11-0.59) K/uL Eos # (Auto) 0.17 (0.00-0.50) K/uL Baso # (Auto) 0.09 (0.00-0.20) K/uL Immature Gran # (Auto) 0.02 (0.01-0.20) K/uL VBG pH 7.43 H (7.36-7.41) VBG pCO2 40 (38-50) mmHg VBG pO2 41 mmHg VBG HCO3 27 mmol/L VBG O2 Saturation 71.4 % VBG Base Excess 2.0 mEq/L Sodium 140 (136-145) mmol/L Potassium 4.4 (3.5-5.1) mmol/L Chloride 106 (98-107) mmol/L Carbon Dioxide 27 (21-32) mmol/L Anion Gap 7 (3-11) BUN 10 (6-23) mg/dl Creatinine 0.99 (0.6-1.2) mg/dl Est Cr Clr Drug Dosing 63.2 ml/min Est GFR ( Amer) 62.4 ml/min Est GFR (Non-Af Amer) 53.8 ml/min BUN/Creatinine Ratio 10.1 (10-20) Glucose 174 H (70-99(Fasting)) mg/dl Calcium 9.5 (8.6-10.3) mg/dl Total Bilirubin 0.5 (0.2-1.0) mg/dl AST 16 (13-39) U/L ALT 10 (7-52) U/L Alkaline Phosphatase 54 (34-104) U/L Troponin I High Sens Cancelled 11.1 Total Protein 6.5 (6.0-8.3) gm/dl Albumin 4.0 (3.4-5.0) gm/dl Globulin 2.5 (2.5-4.0) gm/dl Albumin/Globulin Ratio 1.6 (0.9-2) Lipase 65 (11-82) U/L Urine Color Yellow Urine Appearance Clear (Clear) Urine pH 7.5 (4.5-7.5) Ur Specific [place] 1.007 (1.000-1.030) Urine Protein Negative (Negative) Urine Glucose (UA) Negative (Negative) Urine Ketones Negative (Negative) Urine Blood Negative (Negative) Urine Nitrite Negative (Negative) Urine Bilirubin Negative (Negative) Urine Urobilinogen Negative (Negative) Ur Leukocyte Esterase Negative (Negative) Administered Medications Lactated Ringer's (Lr) 1,000 mls @ 100 mls/hr IV .Q10H ROSANNA Stop: 06/02/24 11:29 Last Admin: 06/01/24 15:56 Dose: 100 mls/hr Documented By: OANH Discontinued Medications Sodium Chloride (Nss) 500 mls @ 999 mls/hr IV .Q31M ONE Stop: 06/01/24 13:02 Last Infusion: 06/01/24 15:56 Dose: Infused Documented By: Admin: 06/01/24 12:43 Dose: 999 mls/hr Documented By: LAKHWINDER Imaging Data Radiologist's Impression: Chest X-Ray 06/01/24 12:32 SINGLE VIEW CHEST CLINICAL HISTORY: Change in mental status. FINDINGS: An AP, portable, upright chest radiograph is compared to study dated 05/26/2024. The heart is enlarged noting atherosclerotic calcification of the thoracic aorta. The pulmonary vasculature is noncongested. Chronic interstitial thickening is similar to previous. There is bibasilar scarring/atelectasis. No airspace consolidation or large pleural effusion is identified. No pneumothorax is seen. The bony thorax is grossly intact. IMPRESSION: Cardiomegaly with no active disease in the chest. ACT 112: Negative or not required by law. Electronically signed by: Karri Salas M.D. 06/01/2024 12:[address] 06/01/24 12:32 CT OF THE HEAD WITHOUT CONTRAST CLINICAL HISTORY: Altered mental status. COMPARISON STUDY: MRI of the brain October 24, 2023. Head CT May 26, 2024. CT DOSE: 547.75 mGy.cm TECHNIQUE: Helical axial images of the head were obtained without IV contrast. Automated exposure control was utilized for the study. A dose lowering technique was utilized adhering to the principles of ALARA. FINDINGS: No acute intracranial hemorrhage, midline shift or mass effect is present. The ventricular system is unremarkable. The basal cisterns are patent. No extra-axial collections are present. There are no findings to suggest acute dural sinus thrombosis or acute territorial infarct. Multifocal encephalomalacia is unchanged since head CT of May 26, 2024. These represent old infarcts. The appearance of the brain is unchanged. IMPRESSION: 1. No acute intracranial findings. 2. No change in appearance of the brain. Multiple old infarcts. ACT 112: Negative or not required by law. Electronically signed by: Dioni Manzo M.D. 06/01/2024 2:18 PM Discharge Plan Visit Data Chief Complaint: Unresponsive Stated Complaint: UNRESPONSIVE ED Provider: Sanjay Lai Discharge Problem: AMS (altered mental status), Dementia, Anemia Patient Disposition: Admitted As Inpatient Discharge Instructions Interventions: ED Discharge Assessment Last Done: 06/01/24 17:48 Discharge Problem: AMS (altered mental status) Qualifiers: Altered mental status type: unspecified Qualified Code(s): R41.82 - Altered mental status, unspecified Dementia Qualifiers: Dementia type: unspecified type Dementia severity: unspecified severity D ementia behavioral or psychological symptom: unspecified whether behavioral, psychotic, or mood disturbance or anxiety Qualified Code(s): F03.90 - Unspecified dementia, unspecified severity, without behavioral disturbance, psychotic disturbance, mood disturbance, and anxiety Anemia Qualifiers: Anemia type: unspecified type Qualified Code(s): D64.9 - Anemia, unspecified
[2024-06-01] MEDS: SODIUM CHLORIDE 0.9% 500 ML IV ONE (12:43)
--- NOTE | 2024-06-01 12:51 | XRay Report ---
SINGLE VIEW CHEST CLINICAL HISTORY: Change in mental status. FINDINGS: An AP, portable, upright chest radiograph is compared to study dated 05/26/2024. The heart i s enlarged noting atherosclerotic calcification of the thoracic aorta. The pulmonary vasculature is n oncongested. Chronic interstitial thickening is similar to previous. There is bibasilar scarring/atel ectasis. No airspace consolidation or large pleural effusion is identified. No pneumothorax is seen. The bony thorax is grossly intact. IMPRESSION: Cardiomegaly with no active disease in the chest. ACT 112: Negative or not required by law. Electronically signed by: Karri Salas M.D. 06/01/2024 12:50 PM
[2024-06-01 13:03] LABS: Appearance Urine Clear (Clear); Bilirubin Urine Negative (Negative); Blood Urine Negative (Negative); Color Urine Yellow; Glucose Urine UA Negative (Negative); Ketones Urine Negative (Negative); Leukocyte Esterase Urine Negative (Negative); Nitrite Urine Negative (Negative); Protein Urine Negative (Negative); Specific Gravity Urine 1.007 (1.000-1.030); Urobilinogen Urine Negative (Negative); pH Urine 7.5 (4.5-7.5)
[2024-06-01 13:07] LABS: Basophils # (auto) 0.09 K/uL (0.00-0.20); Basophils % (auto) 1.5 %; Eosinophils # (auto) 0.17 K/uL (0.00-0.50); Eosinophils % (auto) 2.8 %; Hematocrit (blood only) 33.3 % (37.0-47.0); Hemoglobin 10.5 g/dl (12.0-16.0); Immature Granulocytes # (auto) 0.02 K/uL (0.01-0.20); Immature Granulocytes % (auto) 0.3 %; Lymphocytes % (auto) 31.6 %; Mean Corpuscular Hemoglobin 25.7 pg (25.0-34.0); Mean Corpuscular Hgb Conc 31.5 g/dL (32.0-36.0); Mean Corpuscular Volume 81.6 fL (80.0-100.0); Mean Platelet Volume 10.3 fL (9.4-12.4); Monocytes % (auto) 13.3 %; Neutrophils # (auto) 3.04 K/uL (1.40-6.50); Neutrophils % (auto) 50.5 %; Platelet Count 242 K/uL (130-400); RDW Coefficient of Variation 16.5 % (11.5-14.5); Red Blood Count 4.08 M/uL (4.20-5.40); White Blood Count 6.02 K/ul (4.8-10.8)
[2024-06-01 13:10] LABS: HCO3 VBG 27 mmol/L; Oxygen Saturation VBG 71.4 %; PCO2 VBG 40 mmHg (38-50); PO2 VBG 41 mmHg; pH VBG 7.43 (7.36-7.41)
[2024-06-01 13:32] LABS: Albumin Globulin Ratio 1.6 (0.9-2); BUN Creatinine Ratio 10.1 (10-20); Bilirubin,Total 0.5 mg/dl (0.2-1.0); Calcium 9.5 mg/dl (8.6-10.3); Creatinine Clr Calc Pharmacy 63.2 ml/min; Est GFR (African American) 62.4 ml/min; Est GFR (Non-African American) 53.8 ml/min; Globulin 2.5 gm/dl (2.5-4.0); Potassium 4.4 mmol/L (3.5-5.1); Total Protein 6.5 gm/dl (6.0-8.3)
--- NOTE | 2024-06-01 14:16 | History & Physical Report ---
Date of Service June 01, 2024 Assessment & Plan (1) Unresponsive episode: Plan: Patient presented for an unresponsive episode x 1.5 hours on 06/01; only responding to painful stimuli Unresponsive episodes x 3 over the past week; this can occur at rest Hx of dementia, stroke No leukocytosis; afebrile UA negative on arrival Head CT without acute findings; multiple old infarcts Last echocardiogram on 03/04/2024 revealed LVEF at 55-60%; no intra-arterial shunt Repeat echocardiogram ordered, pending Unclear etiology at this time, but suspect cardiac in nature as nursing staff reported faint pulse and PVCs during episode of unresponsiveness on Monday 05/28 DDx also includes dehydration and encephalopathy (among other etiologies) Gentle IVF resuscitation with LR at 100 mL/hr x 1 L Continuous telemetry monitoring Recommend outpatient cardiology follow-up for potential Holter monitor A.m. 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 Per daughter, no acute change in cognitive baseline Continue donepezil (4) Cerebrovascular disease: Plan: Continue Plavix, statin (5) HTN (hypertension): Plan: Continue carvedilol (6) Hypothyroidism: Plan: Last TSH WNL on 02/23/2024 Continue Synthroid (7) Dehydration: Plan Disposition: Obs - Admit to [facility] telemetry Full code Heart healthy, low-sodium diet (aspiration precautions) VTE PPx: Lovenox 40 mg SQ q24h History of Present Illness Chief Complaint: Unresponsive episodes Primary Care Provider: Cameron Martines MD Deanna is a pleasant 78-year-old female with PMH of dementia, CVA, DM, acute metabolic encephalopathy, depression, neuropathy, CHF, GERD, HLD cerebrovascular disease, and syncope. She presented on 06/01 from the [facility] after 3 episodes of unresponsiveness this past week. Most recent episode lasted 1.5 hours. Patient's daughter (Ary) is at bedside and provides additional history. Daughter reports that the patient went to [facility] on Friday due to this recurrence of her unresponsive episodes, and [facility] suggested that it might be heart related and was set to set up a manager monitoring for her fpc. Hx of UTIs leading to altered mental status, however this was reportedly negative at [facility]. Patient is a poor historian at this time, but denies any recent injuries or trauma to the head or neck. She ambulates with a walker at baseline, but denies any recent falls. She does not remember when she goes in and out of these unresponsive episodes. Patient's daughter normally attributes this to UTIs, however she has not had a UTI present during these most recent episodes. Daughter denies any acute change in cognitive baseline. Per daughter, no history of seizures. She does have a history of stroke for which she takes Plavix. No sick contacts. Patient denies smoking, tobacco use, recent alcohol use. Patient is hypertensive at 177/86 at time of admission; vitals otherwise stable. Hx of aspirin allergy (hives). ED course: NSS 500 mL IV ROS: Patient endorses neck pain/stiffness (which has been ongoing). Patient denies fever, chills, night sweats, dizziness, lightheadedness with movements, headache, changes in vision (blurry vision, double vision, photophobia), facial droop, slurred speech, unilateral deficits, difficulty swallowing, chest pain, chest palpitations, chest pressure, SOB, pleuritic CP, cough, abdominal pain, N/V/D, changes in urinary or bowel habits, burning with urination, dysuria, blood in the urine or stool, or numbness or tingling in the arms or legs. Spoke on the phone with nursing staff at the [facility]. Per nursing staff, the patient has had 3 episodes of unresponsiveness in the past week. Prior to this she had 1 episode of unresponsiveness. During these episodes, she loses consciousness (at rest) but does not have any witnessed seizure-like activity, such as loss of urinary continence, tongue biting, or drinking. No witnessed strokelike activity such as slurred speech, facial droop, or unilateral deficits. Per nursing staff, no recent change in medications. During her episode of unresponsiveness on Friday, this occurred during shift change, and when the patient was found to be unresponsive they were unable to locate a pulse on her. After sternal rub, a faint pulse was found. No compressions were performed. Patient was sent to [facility] for workup. Nursing staff believes she had PVCs on her EKG at that time. Provided update regarding admission status. Allergies Allergy/AdvReac Type Severity Reaction Status Date / Time aspirin Allergy Severe Hives Verified 06/01/24 16:01 NSAIDS (Non-Steroidal Allergy Intermediate Hives Verified 06/01/24 16:01 Anti-Inflamma Penicillins Allergy Intermediate Hives Verified 06/01/24 16:01 vancomycin Allergy Intermediate Redness of Verified 06/01/24 16:01 Skin fenofibrate Allergy Unknown ON PT MED Verified 06/01/24 16:01 LIST naproxen Allergy Unknown Unknown - Verified 06/01/24 16:01 On Med List from [facility] propoxyphene Allergy Unknown ON PT MED Verified 06/01/24 16:01 LIST Home Medications Medication Instructions Recorded Confirmed Type carvedilol 3.125 mg tablet 3.125 mg PO BID 01/29/22 06/01/24 History paroxetine HCl 20 mg tablet 20 mg PO HS 01/29/22 06/01/24 History rosuvastatin 20 mg tablet 20 mg PO HS 01/29/22 06/01/24 History metformin 1,000 mg tablet 1,000 mg PO QAM 01/14/23 06/01/24 History cholecalciferol (vitamin D3) 25 25 mcg PO QAM 03/17/23 06/01/24 History mcg (1,000 unit) capsule (Vitamin D3) levothyroxine 25 mcg tablet 25 mcg PO DAILYBB 03/17/23 06/01/24 History (Synthroid) multivitamin with minerals-folic 1 tab PO QAM 03/17/23 06/01/24 History acid 200 mcg chewable tablet (Adult Multivitamin Gummies) magnesium oxide 400 mg (241.3 mg 400 mg PO BID #0 tabs 03/20/23 06/01/24 Rx magnesium) tablet clopidogrel 75 mg tablet 75 mg PO QAM #30 tabs 04/28/23 06/01/24 Rx diclofenac sodium 1 % topical gel 2 g topical QID PRN Pain 02/05/24 06/01/24 History donepezil 5 mg tablet 5 mg PO HS 02/05/24 06/01/24 History emollient combination no.92 1 applic topical BID Dry skin - 02/05/24 06/01/24 History (Lubriderm Daily Moisture lotion) Legs insulin glargine 100 unit/mL (3 10 unit subcut HS 02/05/24 06/01/24 History mL) subcutaneous pen (Lantus Solostar U-100 Insulin) loperamide 2 mg capsule 2 mg PO UD PRN Diarrhea 02/05/24 06/01/24 History omeprazole 40 mg capsule,delayed 40 mg PO DAILYBB 02/05/24 06/01/24 History release acetaminophen 325 mg tablet 650 mg PO Q4 PRN Fever Or Pain 06/01/24 06/01/24 History (Tylenol) furosemide 40 mg tablet (Lasix) 80 mg PO QAM PRN .EDEMA/WT GAIN 06/01/24 06/01/24 History hydroxyzine HCl 25 mg tablet 25 mg PO TID PRN ITCHYNESS 06/01/24 06/01/24 History potassium chloride 20 mEq 20 meq PO DAILY PRN .When lasix is 06/01/24 06/01/24 History tablet,extended release given Past Med/Surg History Problem List (Updated 06/01/24 @ 18:47 by Sanjay Lai DO) Anemia (Acute) AMS (altered mental status) (Acute) Hypothyroidism HTN (hypertension) Dementia (Acute) Diabetes Unresponsive episode Syncope Dehydration Encephalopathy Elevated lactic acid level (Acute) Acute UTI (Acute) Sepsis (Acute) UTI (urinary tract infection) (Acute) Recurrent UTI (urinary tract infection) Ascending aorta dilatation Discussion about advance care planning held with family member Palliative care by specialist Confusion Cerebrovascular disease HLD (hyperlipidemia) GERD (gastroesophageal reflux disease) CHF (congestive heart failure) UTI (urinary tract infection), uncomplicated Generalized weakness Gait apraxia Stroke 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 Neuropathy Fatigue Hypomagnesemia (Acute) Infarction of kidney (Acute) Bladder spasms Depression Confusion and disorientation Seizure-like activity Hypotension Leg swelling AMS (altered mental status) (Acute) Acute hypotension (Acute) Elevated lactic acid level (Acute) SKY (acute kidney injury) Acute metabolic encephalopathy Morbid obesity Prolonged PTT Cerebrovascular disease Abnormal brain MRI Nonobstructive atherosclerosis of coronary artery LBBB (left bundle branch block) Thoracic aortic aneurysm Bilateral leg edema Medical History Discussion about advance care planning held with family member Palliative care by specialist Confusion Strain of rotator cuff of right shoulder Hypothyroidism CHF (congestive heart failure) Depression Bladder spasms GERD (gastroesophageal reflux disease) No pertinent family history Diabetes HLD (hyperlipidemia) HTN (hypertension) 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 Dementia Surgical History S/P colonoscopy S/P hysterectomy S/P appendectomy History of back surgery Status post right knee replacement No pertinent past surgical history Social History Smoking Status: Never smoker Second Hand Exposure: No; Do You Dip or Chew Tobacco: No; Hx Alcohol Use: No Hx Substance Use: No Preferred Language: [place] Communication Ability: Effective Visual Impairment: No Limitations Hearing Ability: Normal Collision Mechanic Required: No Beliefs That Will Affect Care: None marital status: / Current Living Situation: Personal Care Facility Current Living Situation Comment: At [facility] facility current occupational status: retired Feels Safe at Home: Yes Childhood Exposure to Second-Hand Smoke: No Diet: diabetic Dental Care, Regularly: No Physical Activity Frequency: Does not Exercise Seatbelt Use: always Sunscreen Use: No Assistive Devices: Denture - Upper, Denture - Lower and Walker Review of Systems Review of Systems: See HPI above Physical Exam Physical Exam: General: no acute distress; pleasant affect; daughter at bedside; non-toxic appearing; frail appearing; cooperative; SpO2 95% on RA HEENT: normocephalic, atraumatic; no scleral icterus; PERRLA w/ EOMs intact; vision and hearing grossly intact; patient demonstrates ability to raise eyebrows, smile, and frown without unilateral deficits; no facial droop Neck: supple; no lymphadenopathy; trachea midline Skin: warm, dry without signs of tenting; no cyanosis; no rashes, bruising, lesions, or erythema noted CV: chest wall NTP; RRR; S1/S2 normal; no murmurs/rubs/gallops; pulses intact and symmetric at radial, DP, and PT Lungs: no acute respiratory distress; symmetrical chest wall expansion; clear breath sounds across all lung garay w/o adventitious sounds; no wheezing ABD: Soft, NTP; BS present; no rebound/guarding; no distention; no rashes or bruising on the abdomen or flanks bilaterally MSK: no tics or fasciculations; no edema noted in the LEs b/l, nonerythematous; 5/5 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 bilaterally; 5/5 strength in the lower extremities bilaterally Neuro: Alert and oriented to name, , and location; not alert and oriented to purpose in the hospital or month/season; normal mood and affect; fluent speech; no slurred speech; no focal deficits; sensation grossly intact and symmetric in the UEs/LEs bilaterally Results & Data Results & Data Vital Signs (Past 12 Hours) Vital Signs Temp Pulse Resp BP Pulse Ox O2 Del Method 06/01/24 13:08 71 18 177/89 H 98 06/01/24 12:41 80 06/01/24 12:31 80 17 96 Room Air 06/01/24 12:30 86 20 145/116 H 96 06/01/24 12:28 36.4 C L 85 17 145/116 H 96 Room Air Laboratory Results Abnormal lab results 06/01/24 06/01/24 Range/Units 12:37 12:49 RBC 4.08 L (4.20-5.40) M/uL Hgb 10.5 L (12.0-16.0) g/dl Hct 33.3 L (37.0-47.0) % MCHC 31.5 L (32.0-36.0) g/dL RDW Std Deviation 49.0 H (36.4-46.3) fL RDW Coeff of Sam 16.5 H (11.5-14.5) % [place] # (Auto) 0.80 H (0.11-0.59) K/uL VBG pH 7.43 H (7.36-7.41) Glucose 174 H (70-99(Fasting)) mg/dl Diagnostic Findings Chest X-Ray 06/01/24 12:32 SINGLE VIEW CHEST CLINICAL HISTORY: Change in mental status. FINDINGS: An AP, portable, upright chest radiograph is compared to study dated 05/26/2024. The heart is enlarged noting atherosclerotic calcification of the thoracic aorta. The pulmonary vasculature is noncongested. Chronic interstitial thickening is similar to previous. There is bibasilar scarring/atelectasis. No airspace consolidation or large pleural effusion is identified. No pneumothorax is seen. The bony thorax is grossly intact. IMPRESSION: Cardiomegaly with no active disease in the chest. ACT 112: Negative or not required by law. Electronically signed by: Karri Salas M.D. 06/01/2024 12:50 PM Code Status & VTE Plan Code Status Full code (discussed with both patient and patient's daughter/POA at the bedside) VTE Prophylaxis Plan VTE Prophylaxis will be ordered: Yes Supervising Physician Co-Signing Physician Notes I personally saw and examined the patient. I independently reviewed the labs, EKG, imaging, problem list, medication list, past medical history and family history. I verified all perkins points and agree with Otis Chase PA-C with the following exceptions and/or additions: 78 year old female presents to the ER with multiple unresponsive episodes and possible reduced pulse during one of the episodes. Unable to get any history from the patient as she doesn't remember the episodes. No known chest pain, shortness of breath or dizziness prior to the episodes. She currently feels back to her baseline. O/E HS RRR, no murmurs, Chest CTAB, Abdo SNT A/P Unresponsive episodes - concerning for cardiac arrhythmia. Glucose generally elevated therefore doubtful hypoglycemic at the time of unresponsiveness. EKG with known LBBB. Monitor on telemetry on her usual medications for arrhythmia. Consider outpatient manager monitoring given multiple episodes in a week doubtful need for loop recorder. TTE. PG Care Time/CCT Total # of Minutes Spent Total Time Spent with Patient: Total time spent is greater than 50% in coordination of care (as documented) at patient's floor/unit and/or counseling patient: Coding [place] [address] INT INP/OBS CARE 3/75MIN Patient Type Established Medical Decision Making High Complexity Diagnoses Unresponsive episode R40.4 Diabetes E11.9 Dementia F03.90 Cerebrovascular disease I67.9 HTN (hypertension) I10 Hypothyroidism E03.9 Dehydration E86.0
--- NOTE | 2024-06-01 14:20 | CT Scan Report ---
CT OF THE HEAD WITHOUT CONTRAST CLINICAL HISTORY: Altered mental status. COMPARISON STUDY: MRI of the brain October 24, 2023. Head CT May 26, 2024. CT DOSE: 547.75 mGy.cm TECHNIQUE: Helical axial images of the head were obtained without IV contrast. Automated exposure con trol was utilized for the study. A dose lowering technique was utilized adhering to the principles o f ALARA. FINDINGS: No acute intracranial hemorrhage, midline shift or mass effect is present. The ventricular system is unremarkable. The basal cisterns are patent. No extra-axial collections are present. There are no findings to suggest acute dural sinus thrombosis or acute territorial infarct. Multifocal ence phalomalacia is unchanged since head CT of May 26, 2024. These represent old infarcts. The appeara nce of the brain is unchanged. IMPRESSION: 1. No acute intracranial findings. 2. No change in appearance of the brain. Multiple old infarcts. ACT 112: Negative or not required by law. Electronically signed by: Dioni Manzo M.D. 06/01/2024 2:18 PM
[2024-06-01] MEDS: LACTATED RINGER'S 1,000 ML IV SCH (15:56)
[2024-06-01] MEDS ORDERED: CARBOHYDRATES FOR HYPOGLYCEMIA PO PRN (18:36)
[2024-06-01] MEDS ORDERED: DEXTROSE 50% 50 ML SYRINGE IV PRN (18:36)
[2024-06-01] MEDS ORDERED: GLUCOSE 10 TAB/TUBE PO PRN (18:36)
[2024-06-01] MEDS ORDERED: LOPERAMIDE HCL 2 MG CAP PO PRN (18:36)
[2024-06-01] MEDS ORDERED: GLUCOSE 40% GEL 15 GM TUBE PO PRN (18:36)
[2024-06-01] MEDS ORDERED: hydrOXYzine HCl 25 MG TAB PO PRN (18:36)
[2024-06-01] MEDS ORDERED: GLUCAGON FOR INJ 1 MG VIAL SQ PRN (18:36)
[2024-06-01] MEDS: INSULIN ASPART PER UNIT CHARGE SC SCH (19:31)
[2024-06-01] MEDS: carvediloL 3.125 MG TAB PO SCH (20:46)
[2024-06-01] MEDS: ROSUVASTATIN CALCIUM 20 MG TAB PO SCH (20:47)
[2024-06-01] MEDS: PARoxetine HCL 20 MG TAB PO SCH (20:47)
[2024-06-01] MEDS: ENOXAPARIN INJ 40 MG/0.4 ML SYR SQ SCH (20:47)
[2024-06-01] MEDS: DONEPEZIL HCL 5 MG TAB PO SCH (20:47)
[2024-06-01] MEDS: MAGNESIUM OXIDE 400 MG TAB PO SCH (20:47)
[2024-06-01] MEDS: LANTUS PER UNIT CHARGE SQ SCH (20:48)
[2024-06-02] MEDS: LEVOTHYROXINE SODIUM 25 MCG TABLET PO SCH (05:48)
[2024-06-02 06:09] LABS: Basophils # (auto) 0.07 K/uL (0.00-0.20); Basophils % (auto) 1.3 %; Eosinophils # (auto) 0.19 K/uL (0.00-0.50); Eosinophils % (auto) 3.4 %; Hematocrit (blood only) 30.6 % (37.0-47.0); Hemoglobin 9.6 g/dl (12.0-16.0); Immature Granulocytes # (auto) 0.01 K/uL (0.01-0.20); Immature Granulocytes % (auto) 0.2 %; Lymphocytes # (auto) 2.19 K/uL (1.20-3.40); Lymphocytes % (auto) 39.4 %; Mean Corpuscular Hgb Conc 31.4 g/dL (32.0-36.0); Mean Corpuscular Volume 82.9 fL (80.0-100.0); Monocytes # (auto) 0.79 K/uL (0.11-0.59); Monocytes % (auto) 14.2 %; Neutrophils # (auto) 2.31 K/uL (1.40-6.50); Neutrophils % (auto) 41.5 %; Platelet Count 215 K/uL (130-400); RDW Coefficient of Variation 16.5 % (11.5-14.5); RDW Standard Deviation 49.6 fL (36.4-46.3); Red Blood Count 3.69 M/uL (4.20-5.40); White Blood Count 5.56 K/ul (4.8-10.8)
[2024-06-02] MEDS: PANTOprazole 40 MG TAB PO SCH (07:53)
[2024-06-02] MEDS: CLOPIDOGREL BISULFATE 75 MG TAB PO SCH (07:53)
--- NOTE | 2024-06-02 09:24 | Neurology Consultation ---
Date of Consultation June 02, 2024 Assessment & Plan (1) Unresponsive episode: History of Present Illness Attending Physician: Joel Drew, History of Present Illness pt this morning feeling well. alert and with good conversation. NAD. CT head negative. pt denies headache or feeling ill at this point. she does not remember being unresponsive. Nursing reporting pt with faint pulse and PVC during the event. chart reviewed. admission HPI: Deanna is a pleasant 78-year-old female with PMH of dementia, CVA, DM, acute metabolic encephalopathy, depression, neuropathy, CHF, GERD, HLD cerebrovascular disease, and syncope. She presented on 06/01 from the [facility] after 3 episodes of unresponsiveness this past week. Most recent episode lasted 1.5 hours. Patient's daughter (Ary) is at bedside and provides additional history. Daughter reports that the patient went to [place] on Friday due to this recurrence of her unresponsive episodes, and [facility] suggested that it might be heart related and was set to set up a cardiac cath lab manager for her senior care. Hx of UTIs leading to altered mental status, however this was reportedly negative at [facility]. Patient is a poor historian at this time, but denies any recent injuries or trauma to the head or neck. She ambulates with a walker at baseline, but denies any recent falls. She does not remember when she goes in and out of these unresponsive episodes. Patient's daughter normally attributes this to UTIs, however she has not had a UTI present during these most recent episodes. Daughter denies any acute change in cognitive baseline. Per daughter, no history of seizures. She does have a history of stroke for which she takes Plavix. No sick contacts. Patient denies smoking, tobacco use, recent alcohol use. Patient is hypertensive at 177/86 at time of admission; vitals otherwise stable. Hx of aspirin allergy (hives). ED course: NSS 500 mL IV ROS: Patient endorses neck pain/stiffness (which has been ongoing). Patient denies fever, chills, night sweats, dizziness, lightheadedness with movements, headache, changes in vision (blurry vision, double vision, photophobia), facial droop, slurred speech, unilateral deficits, difficulty swallowing, chest pain, chest palpitations, chest pressure, SOB, pleuritic CP, cough, abdominal pain, N/V/D, changes in urinary or bowel habits, burning with urination, dysuria, blood in the urine or stool, or numbness or tingling in the arms or legs. Spoke on the phone with nursing staff at the [facility]. Per nursing staff, the patient has had 3 episodes of unresponsiveness in the past week. Prior to this she had 1 episode of unresponsiveness. During these episodes, she loses consciousness (at rest) but does not have any witnessed seizure-like activity, such as loss of urinary continence, tongue biting, or drinking. No witnessed strokelike activity such as slurred speech, facial droop, or unilateral deficits. Per nursing staff, no recent change in medications. During her episode of unresponsiveness on Friday, this occurred during shift change, and when the patient was found to be unresponsive they were unable to locate a pulse on her. After sternal rub, a faint pulse was found. No compressions were performed. Patient was sent to [place] for workup. Nursing staff believes she had PVCs on her EKG at that time. Provided update regarding admission status. Allergies Allergy/AdvReac Type Severity Reaction Status Date / Time aspirin Allergy Severe Hives Verified 06/01/24 16:01 NSAIDS (Non-Steroidal Allergy Intermediate Hives Verified 06/01/24 16:01 Anti-Inflamma Penicillins Allergy Intermediate Hives Verified 06/01/24 16:01 vancomycin Allergy Intermediate Redness of Verified 06/01/24 16:01 Skin fenofibrate Allergy Unknown ON PT MED Verified 06/01/24 16:01 LIST naproxen Allergy Unknown Unknown - Verified 06/01/24 16:01 On Med List from [facility] propoxyphene Allergy Unknown ON PT MED Verified 06/01/24 16:01 LIST Home Medications Medication Instructions Recorded Confirmed Type carvedilol 3.125 mg tablet 3.125 mg PO BID 01/29/22 06/01/24 History paroxetine HCl 20 mg tablet 20 mg PO HS 01/29/22 06/01/24 History rosuvastatin 20 mg tablet 20 mg PO HS 01/29/22 06/01/24 History metformin 1,000 mg tablet 1,000 mg PO QAM 01/14/23 06/01/24 History cholecalciferol (vitamin D3) 25 25 mcg PO QAM 03/17/23 06/01/24 History mcg (1,000 unit) capsule (Vitamin D3) levothyroxine 25 mcg tablet 25 mcg PO DAILYBB 03/17/23 06/01/24 History (Synthroid) multivitamin with minerals-folic 1 tab PO QAM 03/17/23 06/01/24 History acid 200 mcg chewable tablet (Adult Multivitamin Gummies) magnesium oxide 400 mg (241.3 mg 400 mg PO BID #0 tabs 03/20/23 06/01/24 Rx magnesium) tablet clopidogrel 75 mg tablet 75 mg PO QAM #30 tabs 04/28/23 06/01/24 Rx diclofenac sodium 1 % topical gel 2 g topical QID PRN Pain 02/05/24 06/01/24 History donepezil 5 mg tablet 5 mg PO HS 02/05/24 06/01/24 History emollient combination no.92 1 applic topical BID Dry skin - 02/05/24 06/01/24 History (Lubriderm Daily Moisture lotion) Legs insulin glargine 100 unit/mL (3 10 unit subcut HS 02/05/24 06/01/24 History mL) subcutaneous pen (Lantus Solostar U-100 Insulin) loperamide 2 mg capsule 2 mg PO UD PRN Diarrhea 02/05/24 06/01/24 History omeprazole 40 mg capsule,delayed 40 mg PO DAILYBB 02/05/24 06/01/24 History release acetaminophen 325 mg tablet 650 mg PO Q4 PRN Fever Or Pain 06/01/24 06/01/24 History (Tylenol) furosemide 40 mg tablet (Lasix) 80 mg PO QAM PRN .EDEMA/WT GAIN 06/01/24 06/01/24 History hydroxyzine HCl 25 mg tablet 25 mg PO TID PRN ITCHYNESS 06/01/24 06/01/24 History potassium chloride 20 mEq 20 meq PO DAILY PRN .When lasix is 06/01/24 06/01/24 History tablet,extended release given Patient History Medical History Discussion about advance care planning held with family member Palliative care by specialist Confusion Strain of rotator cuff of right shoulder Hypothyroidism CHF (congestive heart failure) Depression Bladder spasms GERD (gastroesophageal reflux disease) No pertinent family history Diabetes HLD (hyperlipidemia) HTN (hypertension) 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 Dementia Surgical History S/P colonoscopy S/P hysterectomy S/P appendectomy History of back surgery Status post right knee replacement No pertinent past surgical history Social History Smoking Status: Never smoker Second Hand Exposure: No; Do You Dip or Chew Tobacco: No; Hx Alcohol Use: No Hx Substance Use: No Preferred Language: Comoran Communication Ability: Effective Visual Impairment: No Limitations Hearing Ability: Normal Bilingual Teacher Required: No Beliefs That Will Affect Care: None marital status: / Current Living Situation: Personal Care Facility Current Living Situation Comment: At [facility] current occupational status: retired Feels Safe at Home: Yes Childhood Exposure to Second-Hand Smoke: No Diet: diabetic Dental Care, Regularly: No Physical Activity Frequency: Does not Exercise Seatbelt Use: always Sunscreen Use: No Assistive Devices: Denture - Upper, Denture - Lower and Walker Exam (Neuro) Physical Exam: HEENT: normocephalic grossly Neuro: Mental: Alert, knew the year and season, knew the name of the hospital , fluent speech, normal comprehension, no apraxia, no L/R confusion, no neglect CN: PERRL, Full EOM, symmetric face, midline T/U/P, grossly full ROM neck Motor: No abnormal movements, normal tone, 5-/5 t/o bilaterally Sens: intact to touch b/l grossly Coord: intact FNT b/l DTR: 1+ sym b/l Gait: deferred Impression: 78 yo female with dementia with few transient LOC event. Overall does not appears to be seizure or stroke in nature. More likely cardiogenic or metabolic in nature. Recommendations: continue work up as planned by the hospitalist. avoid hypotension avoid anticholinergic meds and antidopaminergic meds. not much to offer at this point from neurology .call again if new question Chart reviewed I have spent more than 50% educating patient about potential diagnosis and neurological evaluation and coordinating care with patient's treatment team. Total time spent (including chart review and coordination of care): 60 min (this includes chart review). Results & Data Vital Signs (Past 12 Hours) Vital Signs Temp Pulse Pulse Pulse Resp BP Pulse Ox 06/02/24 08:13 80 06/02/24 07:28 06/02/24 07:25 36.8 C 85 18 145/78 H 93 06/02/24 04:00 36.8 C 71 18 151/72 H 93 06/02/24 00:02 85 06/01/24 23:41 36.5 C 80 18 134/77 94 O2 Del Method 06/02/24 08:13 06/02/24 07:28 Room Air 06/02/24 07:25 Room Air 06/02/24 04:00 Room Air 06/02/24 00:02 06/01/24 23:41 Room Air PG Care Time/CCT Total # of Minutes Spent Total Time Spent with Patient: Total time spent is greater than 50% in coordination of care (as documented) at patient's floor/unit and/or counseling patient: Coding Level of Care Code 30430 IN/OBS CONSULT LVL 4,60M Diagnoses Unresponsive episode R40.4
--- NOTE | 2024-06-02 10:45 | XCELERA ---
[id number]
--- NOTE | 2024-06-02 10:45 | Cardiology Consultation ---
Date of Consultation June 02, 2024 Assessment & Plan (1) Unresponsive episode: (2) Syncope: (3) HTN (hypertension): (4) HLD (hyperlipidemia): (5) LBBB (left bundle branch block): Plan ASSESSMENT/PLAN: 1. Syncope/unresponsive episodes: Nothing on monitor to suggest cardiac etiology. Can continue to monitor and when discharged, would recommend a 30-day event monitor. Unlikely that she had a sustained arrhythmia/pauses/high-grade AV block that would cause her to be unresponsive for 1.5 hours, which was previously reported, with otherwise no evidence on laboratory data of prolonged hypoperfusion episode (renal function and transaminase levels were unremarkable). In regards to donepezil, no evidence on telemetry of high-grade AV block, significant arrhythmia or significant bradycardia. 2. Hypertension: Blood pressure normotensive this afternoon and otherwise typically hypertensive throughout the hospital stay. Can continue outpatient regimen. 3. Dyslipidemia: Excellent lipids. Continue high intensity statin therapy. 4. Left bundle branch block: Chronic issue. 5. Disposition: Cardiology will sign off at this time. Please call for any other further questions/concerns, or significant findings on telemetry. Follow- up with primary contracts attorney, Dr. Clarke, in the outpatient setting. Today's visit was 42 minutes in duration, which includes [id number] time, counseling, coordinating care, reviewing multiple records, and completing documentation. Thank you for allowing me to participate in the care of your patient. Please call for any other questions or concerns. Sincerely, Alonzo Ngo M.D. History of Present Illness Reason for Consultation: "Unresponsive episodes, ectopy noted" Requesting Physician: Joel Drew DO Attending Physician: Joel Drew DO History of Present Illness Ms. Mccormack is a pleasant 78-year-old female with a history significant for diabetes, metabolic encephalopathy, hypertension, stroke/cerebrovascular disease, dyslipidemia, and dementia. Her primary contracts attorney is Dr. Clarke. She was admitted on 06/01/2024 with episodes of unresponsiveness. She is a poor historian given dementia/poor memory. Much of the history was obtained from records. She apparently had 3 episodes of unresponsiveness over the preceding week, with 1 episode lasting approximately 1.5 hours. She apparently was evaluated in [place] and an outpatient monitor was being arranged. She does not recall why she is in the hospital but denies any pain such as chest pain, or shortness of breath. She does not recall unresponsive episodes. She was seen earlier in the day by neurology who did not feel that her presentation was consistent with seizure or stroke. Review of systems: Unobtainable due to patient's poor memory. Family history: Noncontributory. Social history: Denies tobacco or alcohol abuse. She recalls being and believes that her spouse has . She reports 4 children and that Barbara often helps her. She does not recall where she lives. She was unaccompanied. Allergies Allergy/AdvReac Type Severity Reaction Status Date / Time aspirin Allergy Severe Hives Verified 06/01/24 16:01 NSAIDS (Non-Steroidal Allergy Intermediate Hives Verified 06/01/24 16:01 Anti-Inflamma Penicillins Allergy Intermediate Hives Verified 06/01/24 16:01 vancomycin Allergy Intermediate Redness of Verified 06/01/24 16:01 Skin fenofibrate Allergy Unknown ON PT MED Verified 06/01/24 16:01 LIST naproxen Allergy Unknown Unknown - Verified 06/01/24 16:01 On Med List from [facility] propoxyphene Allergy Unknown ON PT MED Verified 06/01/24 16:01 LIST Home Medications Medication Instructions Recorded Confirmed Type carvedilol 3.125 mg tablet 3.125 mg PO BID 01/29/22 06/01/24 History paroxetine HCl 20 mg tablet 20 mg PO HS 01/29/22 06/01/24 History rosuvastatin 20 mg tablet 20 mg PO HS 01/29/22 06/01/24 History metformin 1,000 mg tablet 1,000 mg PO QAM 01/14/23 06/01/24 History cholecalciferol (vitamin D3) 25 25 mcg PO QAM 03/17/23 06/01/24 History mcg (1,000 unit) capsule (Vitamin D3) levothyroxine 25 mcg tablet 25 mcg PO DAILYBB 03/17/23 06/01/24 History (Synthroid) multivitamin with minerals-folic 1 tab PO QAM 03/17/23 06/01/24 History acid 200 mcg chewable tablet (Adult Multivitamin Gummies) magnesium oxide 400 mg (241.3 mg 400 mg PO BID #0 tabs 03/20/23 06/01/24 Rx magnesium) tablet clopidogrel 75 mg tablet 75 mg PO QAM #30 tabs 04/28/23 06/01/24 Rx diclofenac sodium 1 % topical gel 2 g topical QID PRN Pain 02/05/24 06/01/24 History donepezil 5 mg tablet 5 mg PO HS 02/05/24 06/01/24 History emollient combination no.92 1 applic topical BID Dry skin - 02/05/24 06/01/24 History (Lubriderm Daily Moisture lotion) Legs insulin glargine 100 unit/mL (3 10 unit subcut HS 02/05/24 06/01/24 History mL) subcutaneous pen (Lantus Solostar U-100 Insulin) loperamide 2 mg capsule 2 mg PO UD PRN Diarrhea 02/05/24 06/01/24 History omeprazole 40 mg capsule,delayed 40 mg PO DAILYBB 02/05/24 06/01/24 History release acetaminophen 325 mg tablet 650 mg PO Q4 PRN Fever Or Pain 06/01/24 06/01/24 History (Tylenol) furosemide 40 mg tablet (Lasix) 80 mg PO QAM PRN .EDEMA/WT GAIN 06/01/24 06/01/24 History hydroxyzine HCl 25 mg tablet 25 mg PO TID PRN ITCHYNESS 06/01/24 06/01/24 Histo ry potassium chloride 20 mEq 20 meq PO DAILY PRN .When lasix is 06/01/24 06/01/24 History tablet,extended release given Problem List (Updated 06/02/24 @ 22:35 by Jovany Ngo MD) Anemia (Acute) AMS (altered mental status) (Acute) Hypothyroidism HTN (hypertension) Dementia (Acute) Diabetes Unresponsive episode Syncope Dehydration Encephalopathy Elevated lactic acid level (Acute) Acute UTI (Acute) Sepsis (Acute) UTI (urinary tract infection) (Acute) Recurrent UTI (urinary tract infection) Ascending aorta dilatation Discussion about advance care planning held with family member Palliative care by specialist Confusion Cerebrovascular disease HLD (hyperlipidemia) GERD (gastroesophageal reflux disease) UTI (urinary tract infection), uncomplicated Generalized weakness Gait apraxia Stroke 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 Neuropathy Fatigue Hypomagnesemia (Acute) Infarction of kidney (Acute) Bladder spasms Depression Confusion and disorientation Seizure-like activity Hypotension Leg swelling AMS (altered mental status) (Acute) Acute hypotension (Acute) Elevated lactic acid level (Acute) SKY (acute kidney injury) Acute metabolic encephalopathy Morbid obesity Prolonged PTT Cerebrovascular disease Abnormal brain MRI Nonobstructive atherosclerosis of coronary artery LBBB (left bundle branch block) Thoracic aortic aneurysm Bilateral leg edema Patient History Medical History (Updated 06/02/24 @ 22:35 by Jovany Ngo MD) Seizure, late effect of stroke Strain of rotator cuff of right shoulder No pertinent family history Surgical History S/P colonoscopy S/P hysterectomy S/P appendectomy History of back surgery Status post right knee replacement No pertinent past surgical history Social History Smoking Status: Never smoker Second Hand Exposure: No; Do You Dip or Chew Tobacco: No; Hx Alcohol Use: No Hx Substance Use: No Preferred Language: Portuguese Communication Ability: Impaired Visual Impairment: No Limitations Hearing Ability: Normal Band Saw Operator Required: No Beliefs That Will Affect Care: None marital status: / Current Living Situation: Personal Care Facility Current Living Situation Comment: At [facility] current occupational status: retired Feels Safe at Home: Yes Childhood Exposure to Second-Hand Smoke: No Diet: diabetic Dental Care, Regularly: No Physical Activity Frequency: Does not Exercise Seatbelt Use: always Sunscreen Use: No Assistive Devices: Walker Physical Exam Physical Exam: Gen.: No acute distress. Alert. HEENT: Anicteric sclera. Neck: No JVD. No bruits. Normal carotid upstrokes bilaterally. Cardiac: Regular. Normal heart rate. Normal S1-S2. No murmurs, rubs, or gallops. Pulmonary: Clear to auscultation bilaterally without wheezes, rales, or rhonchi. Abdomen: Soft, nontender, nondistended, with normoactive bowel sounds. No bruits noted. Extremities: 2+ radial pulses bilaterally. 2+ posterior tibialis pulses bilaterally. No significant pitting edema or cyanosis. Results & Data Vital Signs (Past 12 Hours) Vital Signs Temp Pulse Pulse Pulse Resp BP Pulse Ox 06/02/24 08:13 80 06/02/24 07:28 06/02/24 07:25 36.8 C 85 18 145/78 H 93 06/02/24 04:00 36.8 C 71 18 151/72 H 93 06/02/24 00:02 85 06/01/24 23:41 36.5 C 80 18 134/77 94 O2 Del Method 06/02/24 08:13 06/02/24 07:28 Room Air 06/02/24 07:25 Room Air 06/02/24 04:00 Room Air 06/02/24 00:02 06/01/24 23:41 Room Air Laboratory Results Laboratory Results - last 24 hr 06/01/24 06/01/24 06/01/24 12:37 12:44 12:49 WBC 6.02 RBC 4.08 L Hgb 10.5 L Hct 33.3 L MCV 81.6 MCH 25.7 MCHC 31.5 L RDW Std Deviation 49.0 H RDW Coeff of Sam 16.5 H Plt Count 242 MPV 10.3 Immature Gran % (Auto) 0.3 Neut % (Auto) 50.5 Lymph % (Auto) 31.6 [place] % (Auto) 13.3 Eos % (Auto) 2.8 Baso % (Auto) 1.5 Neut # (Auto) 3.04 Lymph # (Auto) 1.90 [place] # (Auto) 0.80 H Eos # (Auto) 0.17 Baso # (Auto) 0.09 Immature Gran # (Auto) 0.02 VBG pH 7.43 H VBG pCO2 40 VBG pO2 41 VBG HCO3 27 VBG O2 Saturation 71.4 VBG Base Excess 2.0 Sodium 140 Potassium 4.4 Chloride 106 Carbon Dioxide 27 Anion Gap 7 BUN 10 Creatinine 0.99 Est Cr Clr Drug Dosing 63.2 Est GFR ( Amer) 62.4 Est GFR (Non-Af Amer) 53.8 BUN/Creatinine Ratio 10.1 Glucose 174 H POC Glucose Calcium 9.5 Magnesium Total Bilirubin 0.5 AST 16 ALT 10 Alkaline Phosphatase 54 Troponin I High Sens Cancelled 11.1 Total Protein 6.5 Albumin 4.0 Globulin 2.5 Albumin/Globulin Ratio 1.6 Lipase 65 Urine Color Yellow Urine Appearance Clear Urine pH 7.5 Ur Specific [place] 1.007 Urine Protein Negative Urine Glucose (UA) Negative Urine Ketones Negative Urine Blood Negative Urine Nitrite Negative Urine Bilirubin Negative Urine Urobilinogen Negative Ur Leukocyte Esterase Negative Nasal Screen MRSA (PCR) 06/01/24 06/01/24 06/01/24 17:56 20:17 Unknown WBC RBC Hgb Hct MCV MCH MCHC RDW Std Deviation RDW Coeff of Sam Plt Count MPV Immature Gran % (Auto) Neut % (Auto) Lymph % (Auto) [place] % (Auto) Eos % (Auto) Baso % (Auto) Neut # (Auto) Lymph # (Auto) [place] # (Auto) Eos # (Auto) Baso # (Auto) Immature Gran # (Auto) VBG pH VBG pCO2 VBG pO2 VBG HCO3 VBG O2 Saturation VBG Base Excess Sodium Potassium Chloride Carbon Dioxide Anion Gap BUN Creatinine Est Cr Clr Drug Dosing Est GFR ( Amer) Est GFR (Non-Af Amer) BUN/Creatinine Ratio Glucose POC Glucose 153 H 207 H Calcium Magnesium Total Bilirubin AST ALT Alkaline Phosphatase Troponin I High Sens Total Protein Albumin Globulin Albumin/Globulin Ratio Lipase Urine Color Urine Appearance Urine pH Ur Specific [place] Urine Protein Urine Glucose (UA) Urine Ketones Urine Blood Urine Nitrite Urine Bilirubin Urine Urobilinogen Ur Leukocyte Esterase Nasal Screen MRSA (PCR) Negative 06/02/24 06/02/24 05:31 08:01 WBC 5.56 RBC 3.69 L Hgb 9.6 L Hct 30.6 L MCV 82.9 MCH 26.0 MCHC 31.4 L RDW Std Deviation 49.6 H RDW Coeff of Sam 16.5 H Plt Count 215 MPV 10.0 Immature Gran % (Auto) 0.2 Neut % (Auto) 41.5 Lymph % (Auto) 39.4 [place] % (Auto) 14.2 Eos % (Auto) 3.4 Baso % (Auto) 1.3 Neut # (Auto) 2.31 Lymph # (Auto) 2.19 [place] # (Auto) 0.79 H Eos # (Auto) 0.19 Baso # (Auto) 0.07 Immature Gran # (Auto) 0.01 VBG pH VBG pCO2 VBG pO2 VBG HCO3 VBG O2 Saturation VBG Base Excess Sodium Potassium Chloride Carbon Dioxide Anion Gap BUN Creatinine Est Cr Clr Drug Dosing Est GFR ( Amer) Est GFR (Non-Af Amer) BUN/Creatinine Ratio Glucose POC Glucose 180 H Calcium Magnesium 1.8 Total Bilirubin AST ALT Alkaline Phosphatase Troponin I High Sens Total Protein Albumin Globulin Albumin/Globulin Ratio Lipase Urine Color Urine Appearance Urine pH Ur Specific [place] Urine Protein Urine Glucose (UA) Urine Ketones Urine Blood Urine Nitrite Urine Bilirubin Urine Urobilinogen Ur Leukocyte Esterase Nasal Screen MRSA (PCR) Diagnostic Findings ECHO 06/02/24: 1. Normal left ventricular size with low normal systolic function. EF 50-55%. Mild hypokinesis of the inferolateral wall. Abnormal septal motion consistent with bundle branch block. Moderate concentric left ventricular hypertrophy. 2. No significant valvular abnormalities visualized. 3. Normal right ventricular systolic pressure. RVSP 30 mmHg. 4. No significant change from prior study on 02/06/2024. Labs reviewed and notable for normal high-sensitivity troponin, normal potassium, normal renal function, elevated A1c, normal magnesium, normal transaminase levels, excellent lipids, chronic anemia, mildly lower than usual. Telemetry personally reviewed: Sinus rhythm. No arrhythmia, high-grade AV block, or pauses noted when reviewed earlier this morning. ECG personally reviewed 06/01/2024: Sinus rhythm with first-degree AV block. LBBB. History and physical report and neurology reports reviewed. CT head 06/01/2024: No acute intracranial findings per radiology. Multiple old infarcts. Medications Administered Current Inpatient Medications Acetaminophen (Acetaminophen 325 Mg Tab) 650 mg PO Q4H PRN PRN Reason: Pain or Fever Stop: 07/01/24 18:35 Last Admin: 06/02/24 22:03 Dose: 650 mg Carvedilol (Carvedilol 3.125 Mg Tab) 3.125 mg PO BIDM [facility] Stop: 07/01/24 18:59 Last Admin: 06/02/24 16:15 Dose: 3.125 mg Clopidogrel Bisulfate (Clopidogrel Bisulfate 75 Mg Tab) 75 mg PO QAM ROSANNA Stop: 07/02/24 08:59 Last Admin: 06/02/24 07:53 Dose: 75 mg Dextrose (Dextrose 50% 50 Ml Syringe) 25 - 50 ml IV UD PRN; Protocol PRN Reason: Hypoglycemia Protocol Stop: 07/01/24 18:35 Donepezil HCl (Donepezil Hcl 5 Mg Tab) 5 mg PO HS ROSANNA Stop: 07/01/24 20:59 Last Admin: 06/02/24 20:35 Dose: 5 mg Enoxaparin Sodium (Enoxaparin Inj 40 Mg/0.4 Ml Syr) 40 mg SQ Q24H ROSANNA Stop: 07/01/24 20:59 Last Admin: 06/02/24 20:35 Dose: 40 mg Glucagon (Glucagon For Inj 1 Mg Vial) 1 mg SQ UD PRN; Protocol PRN Reason: Hypoglycemia Protocol Stop: 07/01/24 18:35 Glucose (Glucose 40% Gel 15 Gm Tube) 15 - 30 gm PO UD PRN; Protocol PRN Reason: Hypoglycemia Protocol Stop: 07/01/24 18:35 Glucose (Glucose 10 Tab/Tube) 4 - 8 tab PO UD PRN; Protocol PRN Reason: Hypoglycemia Treatment Stop: 07/01/24 18:35 Hydroxyzine HCl (Hydroxyzine Hcl 25 Mg Tab) 25 mg PO TID PRN PRN Reason: ITCHYNESS Stop: 07/01/24 18:35 Insulin Aspart (Insulin Aspart Per Unit Charge) 0 units SC ACHS ROSANNA Stop: 07/01/24 18:35 Last Admin: 06/02/24 20:44 Dose: 1 units Insulin Glargine (Lantus Per Unit Charge) 5 units SQ BID ROSANNA Stop: 07/01/24 20:59 Last Admin: 06/02/24 20:43 Dose: 5 units Levothyroxine Sodium (Levothyroxine Sodium 25 Mcg Tablet) 25 mcg PO DAILYBB ROSANNA Stop: 07/02/24 06:29 Last Admin: 06/02/24 05:48 Dose: 25 mcg Loperamide HCl (Loperamide Hcl 2 Mg Cap) 2 mg PO UD PRN PRN Reason: Diarrhea Stop: 07/01/24 18:35 Magnesium Oxide (Magnesium Oxide 400 Mg Tab) 400 mg PO BID ROSANNA Stop: 07/01/24 20:59 Last Admin: 06/02/24 20:35 Dose: 400 mg Miscellaneous (Carbohydrates For Hypoglycemia ) 15 - 30 gm PO UD PRN PRN Reason: Hypoglycemia Protocol Stop: 07/01/24 18:35 Pantoprazole Sodium (Pantoprazole 40 Mg Tab) 40 mg PO DAILY ROSANNA; Protocol Stop: 07/02/24 08:59 Last Admin: 06/02/24 07:53 Dose: 40 mg Paroxetine HCl (Paroxetine Hcl 20 Mg Tab) 20 mg PO HS ROSANNA Stop: 07/01/24 20:59 Last Admin: 06/02/24 20:35 Dose: 20 mg Rosuvastatin Calcium (Rosuvastatin Calcium 20 Mg Tab) 20 mg PO HS ROSANNA Stop: 07/01/24 20:59 Last Admin: 06/02/24 20:35 Dose: 20 mg PG Care Time/CCT Total # of Minutes Spent Total Time Spent: 42 Total Time Spent with Patient: Total time spent is greater than 50% in coordination of care (as documented) at patient's floor/unit and/or counseling patient: Coding Level of Care Code 98084 INT INP/OBS CARE 2/55MIN Diagnoses Unresponsive episode R40.4 Syncope R55 HTN (hypertension) I10 HLD (hyperlipidemia) E78.5 LBBB (left bundle branch block) I44.7 Time Spent (min) 42
--- NOTE | 2024-06-02 12:41 | Hospitalist Progress Note ---
Date of Service June 02, 2024 Assessment & Plan (1) Unresponsive episode: Plan: -Patient presented for an unresponsive episode x 1.5 hours on 06/01; only responding to painful stimuli -Unresponsive episodes x 3 over the past week -No leukocytosis; afebrile -UA negative on arrival -Head CT without acute findings; multiple old infarcts -Follow up echocardiogram -Continuous telemetry monitoring -Cardiology consulted: Follow up recommendations -Neurology consulted; does not appear to be seizure episode. 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 -Per daughter, no acute change in cognitive baseline -Continue donepezil- will discuss with cardiology based on tele monitoring if needs to be discontinued given cholinergic effects (4) Cerebrovascular disease: Plan: -Continue Plavix, statin (5) HTN (hypertension): Plan: -Continue carvedilol (6) Hypothyroidism: Plan: -Last TSH WNL on 02/23/2024 -Continue Synthroid -Repeat TSH ordered for the AM given presenting symptoms Plan VTE PPx: Lovenox 40 mg SQ q24h Admission and Anticipated Discharge Date Admission Date: June 01, 2024 Subjective Patient seen and evaluated bedside Patient is currently in NAD She is a limited historian Patient cannot recall any events precipitating episodes of losing consciousness She denies any symptoms at present She denies any recent history of chest pain, palpitations, SOB, fevers, chills, nausea or vomiting Review of Systems Review of Systems: As indicated in HPI Physical Exam Physical Exam: General: no acute distress; pleasant affect; non-toxic appearing HEENT: normocephalic, atraumatic Neck: supple; no lymphadenopathy; trachea midline Skin: warm, dry without signs of tenting CV: RRR; S1/S2 normal; no murmurs/rubs/gallops Lungs: no acute respiratory distress; symmetrical chest wall expansion; clear breath sounds bilaterally ABD: Soft, NTP; BS present MSK: no edema noted in the LEs b/l Neuro: Alert and oriented to name, . No focal deficits Results & Data Results & Data Vital Signs (Past 12 Hours) Vital Signs Temp Pulse Pulse Resp BP Pulse Ox O2 Del Method 06/02/24 11:52 36.4 C L 76 18 149/88 H 92 Room Air 06/02/24 08:13 80 06/02/24 07:28 Room Air 06/02/24 07:25 36.8 C 85 18 145/78 H 93 Room Air 06/02/24 04:00 36.8 C 71 18 151/72 H 93 Room Air PG Care Time/CCT Total # of Minutes Spent Total Time Spent with Patient: Total time spent is greater than 50% in coordination of care (as documented) at patient's floor/unit and/or counseling patient: Coding Level of Care Code 02231 SUB INP/OBS CARE 2/35MIN Diagnoses Unresponsive episode R40.4 Diabetes E11.9 Dementia F03.90 Dementia behavioral or psychological symptom: unspecified whether behavioral, psychotic, or mood disturbance or anxiety Dementia severity: unspecified severity Dementia type: unspecified type Cerebrovascular disease I67.9 HTN (hypertension) I10 Hypothyroidism E03.9 (3) Dementia Dementia behavioral or psychological symptom: unspecified whether behavioral, psychotic, or mood disturbance or anxiety Dementia severity: unspecified severity Dementia type: unspecified type Qualified Code(s): F03.90 - Unspecified dementia, unspecified severity, without behavioral disturbance, psychotic disturbance, mood disturbance, and anxiety
[2024-06-02] MEDS: ACETAMINOPHEN 325 MG TAB PO PRN (15:02)
[2024-06-03 04:37] VITALS: RESP 18
[2024-06-03 06:29] LABS: Basophils # (auto) 0.06 K/uL (0.00-0.20); Basophils % (auto) 1.1 %; Eosinophils # (auto) 0.23 K/uL (0.00-0.50); Eosinophils % (auto) 4.1 %; Hematocrit (blood only) 35.3 % (37.0-47.0); Hemoglobin 11.1 g/dl (12.0-16.0); Immature Granulocytes # (auto) 0.01 K/uL (0.01-0.20); Immature Granulocytes % (auto) 0.2 %; Lymphocytes # (auto) 2.61 K/uL (1.20-3.40); Lymphocytes % (auto) 46.3 %; Mean Corpuscular Hemoglobin 25.7 pg (25.0-34.0); Mean Corpuscular Hgb Conc 31.4 g/dL (32.0-36.0); Mean Corpuscular Volume 81.7 fL (80.0-100.0); Mean Platelet Volume 9.9 fL (9.4-12.4); Monocytes # (auto) 0.77 K/uL (0.11-0.59); Monocytes % (auto) 13.7 %; Neutrophils # (auto) 1.96 K/uL (1.40-6.50); Neutrophils % (auto) 34.6 %; Platelet Count 231 K/uL (130-400); RDW Coefficient of Variation 16.3 % (11.5-14.5); RDW Standard Deviation 48.7 fL (36.4-46.3); Red Blood Count 4.32 M/uL (4.20-5.40); White Blood Count 5.64 K/ul (4.8-10.8)
--- NOTE | 2024-06-03 06:45 | Electrocardiogram Report ---
Test Reason : Blood Pressure : */* mmHG Vent. Rate : 75 BPM Atrial Rate : 75 BPM P-R Int : 216 ms QRS Dur : 140 ms QT Int : 464 ms P-R-T Axes : 40 -9 87 degrees QTcB Int : 518 ms Sinus rhythm with 1st degree A-V block Left bundle branch block Abnormal ECG When compared with ECG of 26-May-2024 18:56, Premature ventricular complexes are no longer Present Confirmed by Jovany Ngo ([id number]) on 06/03/2024 6:44:57 AM Referred By: REFERRED SELF Confirmed By: Jovany Ngo
[2024-06-03 06:46] LABS: BUN Creatinine Ratio 15.8 (10-20); Calcium 9.5 mg/dl (8.6-10.3); Creatinine Clr Calc Pharmacy 58.2 ml/min; Est GFR (African American) 60.9 ml/min; Est GFR (Non-African American) 52.5 ml/min
[2024-06-03 07:01] LABS: Thyroid Stimulating Hormone 1.941 uIu/ml (0.300-4.500)
[2024-06-03 07:41] VITALS: O2SAT 95
[2024-06-03 11:28] VITALS: BP 129/74; TEMP 97.5
[2024-06-03 15:25] VITALS: PULSE 73
--- NOTE | 2024-06-03 16:02 | Discharge Summary ---
Discharge Summary Date of Service June 03, 2024 Principal Dx & Hospital Course #1 = Principal Diagnosis (1) Seizure, late effect of stroke: -Patient presented for an unresponsive episode x 1.5 hours on 06/01; only responding to painful stimuli after an acute loss of consciousness. She has had this same thing occur on multiple occasions over the last 1-2 years as per review of the chart and d/w daughter.. SHe has had unresponsive episodes x 3 over the past week -No leukocytosis; afebrile, no UTI or evidence of infection or metabolic abnormalities, Head CT without acute findings; multiple old infarcts Echocardiogram with preserved EF, mild hypokinesis inferolat wall. No arrhythmias on tele and Cardiology does not feel this is arrhythmogenic . 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 -Per daughter, no acute change in cognitive baseline -Continue donepezil (4) Cerebrovascular disease: -Continue Plavix, statin (5) HTN (hypertension): -Continue carvedilol BPs controlled (6) Hypothyroidism: -TSH here normal -Continue Synthroid Plan VTE PPx: Lovenox 40 mg SQ q24h Dispo-stable for dc to personal [facility], discussed care with daughter at bedside Notes For Next Care Provider Needs close f/u with Neurology for possible seizures Medication Changes From Visit None Admission HPI Per Admitting Provider Deanna is a pleasant 78-year-old female with PMH of dementia, CVA, DM, acute metabolic encephalopathy, depression, neuropathy, CHF, GERD, HLD cerebrovascular disease, and syncope. She presented on 06/01 from the [place] [facility] after 3 episodes of unresponsiveness this past week. Most recent episode lasted 1.5 hours. Patient's daughter (Ary) is at bedside and provides additional history. Daughter reports that the patient went to [facility] on Friday due to this recurrence of her unresponsive episodes, and [facility] suggested that it might be heart related and was set to set up a environmental monitoring technician for her usp. Hx of UTIs leading to altered mental status, however this was reportedly negative at [facility]. Patient is a poor historian at this time, but denies any recent injuries or trauma to the head or neck. She ambulates with a walker at baseline, but denies any recent falls. She does not remember when she goes in and out of these unresponsive episodes. Patient's daughter normally attributes this to UTIs, however she has not had a UTI present during these most recent episodes. Daughter denies any acute change in cognitive baseline. Per daughter, no history of seizures. She does have a history of stroke for which she takes Plavix. No sick contacts. Patient denies smoking, tobacco use, recent alcohol use. Patient is hypertensive at 177/86 at time of admission; vitals otherwise stable. Hx of aspirin allergy (hives). ED course: NSS 500 mL IV ROS: Patient endorses neck pain/stiffness (which has been ongoing). Patient denies fever, chills, night sweats, dizziness, lightheadedness with movements, headache, changes in vision (blurry vision, double vision, photophobia), facial droop, slurred speech, unilateral deficits, difficulty swallowing, chest pain, chest palpitations, chest pressure, SOB, pleuritic CP, cough, abdominal pain, N/V/D, changes in urinary or bowel habits, burning with urination, dysuria, blood in the urine or stool, or numbness or tingling in the arms or legs. Spoke on the phone with nursing staff at the [facility]. Per nursing staff, the patient has had 3 episodes of unresponsiveness in the past week. Prior to this she had 1 episode of unresponsiveness. During these episodes, she loses consciousness (at rest) but does not have any witnessed seizure-like activity, such as loss of urinary continence, tongue biting, or drinking. No witnessed strokelike activity such as slurred speech, facial droop, or unilateral deficits. Per nursing staff, no recent change in medications. During her episode of unresponsiveness on Friday, this occurred during shift change, and when the patient was found to be unresponsive they were unable to locate a pulse on her. After sternal rub, a faint pulse was found. No compressions were performed. Patient was sent to [facility] for workup. Nursing staff believes she had PVCs on her EKG at that time. Provided update regarding admission status. Discharge Exam Constitutional WD/WN, vitals as above Respiratory normal respiratory effort, lungs clear to auscultation Cardiovascular RRR, no murmur, no edema Gastrointestinal (Abdomen) normal bowel sounds, soft, nontender, no hepatosplenomegaly Neurologic PERRL, EOMI, accommodation nl, no face palsy, no dysarthria moves all extremities and awake; no focal motor deficits Motor/Sensory: no tremor Discharge Plan Discharge Items Patient Disposition: Personal Half-Way Reason For Visit: UNRESPONSIVE X 1.5H Discharge Diagnosis: Unresponsive episode-suspect possible seizure vs unknown cause Condition on Discharge: Good Activity: Resume your previous activity Non-emergency contact: Primary Care Provider and Neurologist Call non-emergency contact if: you have any medication questions and your symptoms worsen Follow-up/Referrals: John Culp MD [Physician] - (Follow up within 2 weeks) Cameron Martines MD [Primary Care Provider] - (Follow up within 1-2 weeks) Diet: Carb Consistent or DM2 and Heart Healthy Addtl Attending Provider Instructions: You were admitted with another episode of unresponsiveness and no cause was found. You will have a 30 day heart monitor sent to you to look for abnormal heart rhythms although this seems less likely. You were seen by a Neurologist here who did not think the episodes were from seizure or stroke, but I recommend you following up with Dr. Culp, your Neurologist for further evaluation to see if these could be seizures. Pending Studies at Discharge: No Stand-Alone Forms: My [facility] [employer], Smoking Cessation Skilled Items Patient informed of condition?: Yes DNR: No Discharge Level of Care: Other Communicable Disease: No Discharge Prognosis: Improving Lines: None Urinary Catheter: No Medications and DC Order Prescriptions: Continued carvedilol 3.125 mg tablet 3.125 mg PO BID Rx Instructions: must administer with a meal/food paroxetine HCl 20 mg tablet 20 mg PO HS rosuvastatin 20 mg tablet 20 mg PO HS clopidogrel 75 mg Tablet 75 mg PO QAM Qty: 30 0RF metformin 1,000 mg tablet 1,000 mg PO QAM cholecalciferol (vitamin D3) [Vitamin D3] 25 mcg (1,000 unit) Capsule 25 mcg PO QAM multivit with min-folic acid [Adult Multivitamin Gummies] 200 mcg Tablet,Chewable 1 tab PO QAM levothyroxine [Synthroid] 25 mcg tablet 25 mcg PO DAILYBB Rx Instructions: for underactive thyroid gland magnesium oxide 400 mg (241.3 mg magnesium) Tablet 400 mg PO BID Qty: 0 0RF loperamide 2 mg capsule 2 mg PO UD MDD 8mg/24hrs PRN (Reason: Diarrhea) Rx Instructions: 1 capsule after each additional loose stool omeprazole 40 mg capsule,delayed release(DR/EC) 40 mg PO DAILYBB insulin glargine [Lantus Solostar U-100 Insulin] 100 unit/mL (3 mL) insulin pen 10 unit SUBCUT HS Lubriderm Daily Moisture Lotion 1 applic TOPICAL BID donepezil 5 mg tablet 5 mg PO HS diclofenac sodium 1 % gel 2 g topical QID PRN (Reason: Pain) furosemide [Lasix] 40 mg Tablet 80 mg PO QAM PRN (Reason: .EDEMA/WT GAIN) acetaminophen [Tylenol] 325 mg Tablet 650 mg PO Q4 PRN (Reason: Fever Or Pain) hydroxyzine HCl 25 mg tablet 25 mg PO TID PRN (Reason: ITCHYNESS) potassium chloride 20 mEq Tablet Extended Release 20 meq PO DAILY PRN (Reason: .When lasix is given) Discharge Orders: Discharge Order (Routine); Ordered 06/03/24 Ordered By: Autumn Lester Admission Data Admit Date/Time: 06/01/24 15:11 Attending Provider: Autumn Lester Admit Provider: Jorge A Zhao Primary Care Provider: Cameron Martines Other Providers: Jorge A Zhao; Tai Glez; Jovany Ngo Other Interventions: Discharge Summary Assessment (RN) Last Done: 06/03/24 13:55 Hospital Stay Data Consultations 06/01/24 14:46 ED Decision to Admit Stat 06/02/24 07:09 Consult Neurology Routine 06/02/24 07:10 Consult Cardiology Routine Diagnostic Imagining Performed 06/01/24 12:32 CT head/brain wo con Stat Pending Results Patient Have Any Pending Studies at Discharge: No Discharge Instructions Given to Patient (Per Discharging Provider) You were admitted with another episode of unresponsiveness and no cause was found. You will have a 30 day heart monitor sent to you to look for abnormal heart rhythms although this seems less likely. You were seen by a Neurologist here who did not think the episodes were from seizure or stroke, but I recommend you following up with Dr. Culp, your Neurologist for further evaluation to see if these could be seizures. Total Time Total Time Spent Total Time Spent (In Minutes): 35 min Coding Level of Care Code 67583 INP/OBS DISCH >30 MIN Diagnoses Seizure, late effect of stroke I69.398; R56.9 Diabetes E11.9 Dementia F03.90 Dementia behavioral or psychological symptom: unspecified whether behavioral, psychotic, or mood disturbance or anxiety Dementia severity: unspecified severity Dementia type: unspecified type Cerebrovascular disease I67.9 HTN (hypertension) I10 Hypothyroidism E03.9
== END 2024-06-03 16:50 | disposition home or self-care (01) ==
LOC: ED 12:21 → 2N 12:21 → SUATTDRO 15:11 → 2N 17:48

== ENCOUNTER 2024-06-08 16:43 | Observation (INO) ==
--- NOTE | 2024-06-08 17:03 | Emergency Department Note ---
Impression & Plan Episode of unresponsiveness, Dementia, Cerebrovascular disease ED Provider Note NAME: ANTONIO BILL AGE: 78 SEX: F : 1945 ARRIVES VIA: Ambulance INFORMANT: Patient ED PROVIDER(S): Efra Saldana MD CHIEF COMPLAINT: Unresponsive, referred. PLAN: Disposition: Admit MEDICAL DECISION MAKING: The patient is an 78-year-old woman with past medical history of vascular dementia, seizure disorder, history of CVA, recurrent UTIs, diabetes, hypertension, CHF with preserved EF, hyperlipidemia, hypothyroidism who presents to the emergency department via EMS from her [facility] for unresponsiveness. Patient has been admitted to this facility several times for the same such as 04/04-04/06, 05/26, and recently 06/01-06/03. Presentation the past has been attributed to urinary infection and seizure possibly related to prior history of stroke in the setting of vascular dementia/cerebrovascular disease were considered per discharge summary. On evaluation the patient is in no acute distress, afebrile with blood pressure 160s/100s and vital signs otherwise stable. She has normal respiratory effort and while has eyes closed does appear to exhibit purposeful movements as she swatted at nursing when they were attempting to wake her with painful stimulus. Upon my assessment with loud voice and patting of her chest she opened her eyes on command and direct her gaze towards me but then closed her eyes again. I attempted to open her eyes and she resisted and raised her gaze upward. EKG without overt acute ischemia. CXR negative for acute cardiopulmonary process per my personal preliminary review/interpretation. WBC and platelets within normal limits. H/H similar to prior. Chemistry without metabolic acidosis. Electrolytes and LFTs unremarkable. Positive troponin of 0.5, hemoglobin. Lipase is normal. UA without evidence of infection. Drug screen was negative. CT of the head CT of the head and neck were negative for ICH, ischemia or severe narrowing or occlusion of large vessels. Encephalomalacia due to old infarcts is described. Upon evaluation patient had returned to baseline. Findings reviewed with the patient and her daughter at the bedside. They did agree with plan for admission for further evaluation and management. Case was discussed with Dr. Tyson, [facility] hospitalist, who will evaluate the patient for admission. Further management per admitting team. Triage Nursing notes reviewed and agree them. Prior/external medical records reviewed Vital Signs: reviewed Differential diagnosis: Infection, hypoglycemia, electrolyte abnormalities, overdose, toxicologic, cardiac sources, intracerebral event, neurologic, trauma, as well as other pathologies. ER treatment provided: See below. Diagnostics interpreted by me: ECG: Sinus rhythm occasional PVCs, 79 bpm, left bundle branch block, no sgarbossa criteria. similar to prior. QTc 522, QRS 140. Cardiac Monitoring: An order for continuous cardiac monitoring was placed and demonstrated Sinus rhythm occasional PVCs, 79 bpm Laboratory studies: See below Imaging studies: See below Consultation(s): Case was discussed with Dr. Tyson, [facility] [place]ist, who will evaluate the patient for admission. HPI: The patient is an 78-year-old woman with past medical history of vascular dementia, seizure disorder, history of CVA, recurrent UTIs, diabetes, hypertension, CHF with preserved EF, hyperlipidemia, hypothyroidism who presents to the emergency department via EMS from her [facility] for unresponsiveness. Patient has been admitted to this facility several times for the same such as 04/04-04/06, 05/26, and recently 06/01-06/03. Presentation the past has been attributed to urinary infection and seizure possibly related to prior history of stroke in the setting of vascular dementia/cerebrovascular disease were considered per discharge summary. ROS: See above HPI for pertinent positives & negatives. A total of 10 systems reviewed and were otherwise negative. VITALS:See Below PHYSICAL EXAMINATION: GENERAL: Awake and opens eyes to loud voice. Purposeful movements with stimulus. In no acute distress HENT: Normocephalic, atraumatic. Oropharynx with dry mucous membranes and otherwise unremarkable. EYES: Normal conjunctiva. Sclera non-icteric. EOMI. No nystamgus. PEARRL. NECK: Supple. No nuchal rigidity. FROM. No JVD. RESPIRATORY: Clear to auscultation. CARDIAC: Regular rate, normal rhythm. Extremities warm and well perfused. Pulses equal. ABDOMEN: Soft, non-distended. No tenderness to palpation. No rebound or guarding. No masses. MUSCULOSKELETAL: Chest examination reveals no tenderness. The back is symmetrical on inspection without obvious abnormality. There is no CVA tenderness to palpation. No joint edema. LOWER EXTREMITIES: Calves are equal size bilaterally and non-tender. Mild BLE edema. No discoloration. NEURO: Opens eyes to loud voice. Moving all extremities equally with purposeful movements with stimulus. SKIN: No rash or jaundice noted. Efra Saldana MD Past Med/Surg History Problem List (Updated 06/08/24 @ 23:08 by Efra Saldana MD) Episode of unresponsiveness (Acute) Anemia (Acute) AMS (altered mental status) (Acute) Hypothyroidism HTN (hypertension) Dementia (Acute) Diabetes Unresponsive episode Syncope Dehydration Encephalopathy Elevated lactic acid level (Acute) Acute UTI (Acute) Sepsis (Acute) UTI (urinary tract infection) (Acute) Recurrent UTI (urinary tract infection) Ascending aorta dilatation Discussion about advance care planning held with family member Palliative care by specialist Confusion Cerebrovascular disease (Acute) HLD (hyperlipidemia) GERD (gastroesophageal reflux disease) UTI (urinary tract infection), uncomplicated Generalized weakness Gait apraxia Stroke 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 Neuropathy Fatigue Hypomagnesemia (Acute) Infarction of kidney (Acute) Bladder spasms Depression Confusion and disorientation Seizure-like activity Hypotension Leg swelling AMS (altered mental status) (Acute) Acute hypotension (Acute) Elevated lactic acid level (Acute) SKY (acute kidney injury) Acute metabolic encephalopathy Morbid obesity Prolonged PTT Cerebrovascular disease Abnormal brain MRI Nonobstructive atherosclerosis of coronary artery LBBB (left bundle branch block) Thoracic aortic aneurysm Bilateral leg edema Medical History Seizure, late effect of stroke Strain of rotator cuff of right shoulder No pertinent family history Surgical History S/P colonoscopy S/P hysterectomy S/P appendectomy History of back surgery Status post right knee replacement No pertinent past surgical history Social History Smoking Status: Never smoker Second Hand Exposure: No; Do You Dip or Chew Tobacco: No; Tobacco Cessation Education Requested by Patient: No Hx Alcohol Use: No Hx Substance Use: No Preferred Language: Ug[place]an Communication Ability: Effective Visual Impairment: No Limitations Hearing Ability: Normal Way Inspector Required: No Beliefs That Will Affect Care: None marital status: / Current Living Situation: Personal Care Facility Current Living Situation Comment: At [facility] facility current occupational status: retired Other Information That Helps Us Care for You: No Feels Safe at Home: Yes Safety Concerns: Feels Safe At This Time Childhood Exposure to Second-Hand Smoke: No Diet: diabetic Dental Care, Regularly: No Physical Activity Frequency: Does not Exercise Seatbelt Use: always Sunscreen Use: No Assistive Devices: Walker Allergies Allergies Allergy/AdvReac Type Severity Reaction Status Date / Time aspirin Allergy Severe Hives Verified 06/08/24 19:49 NSAIDS (Non-Steroidal Allergy Intermediate Hives Verified 06/08/24 19:49 Anti-Inflamma Penicillins Allergy Intermediate Hives Verified 06/08/24 19:49 vancomycin Allergy Intermediate Redness of Verified 06/08/24 19:49 Skin fenofibrate Allergy Unknown ON PT MED Verified 06/08/24 19:49 LIST naproxen Allergy Unknown Unknown - Verified 06/08/24 19:49 On Med List from [facility] propoxyphene Allergy Unknown ON PT MED Verified 06/08/24 19:49 LIST Home Meds Home Medications Medication Instructions Recorded Confirmed carvedilol 3.125 mg tablet 3.125 mg PO BID 01/29/22 06/08/24 paroxetine HCl 20 mg tablet 20 mg PO HS 01/29/22 06/08/24 rosuvastatin 20 mg tablet 20 mg PO HS 01/29/22 06/08/24 metformin 1,000 mg tablet 1,000 mg PO QAM 01/14/23 06/08/24 cholecalciferol (vitamin D3) 25 25 mcg PO QAM 03/17/23 06/08/24 mcg (1,000 unit) capsule (Vitamin D3) levothyroxine 25 mcg tablet 25 mcg PO DAILYBB 03/17/23 06/08/24 (Synthroid) multivitamin with minerals-folic 1 tab PO QAM 03/17/23 06/08/24 acid 200 mcg chewable tablet (Adult Multivitamin Gummies) diclofenac sodium 1 % topical gel 2 g topical QID PRN Pain 02/05/24 06/08/24 donepezil 5 mg tablet 5 mg PO HS 02/05/24 06/08/24 emollient combination no.92 1 applic topical BID Dry skin - 02/05/24 06/08/24 (Lubriderm Daily Moisture lotion) Legs insulin glargine 100 unit/mL (3 10 unit subcut HS 02/05/24 06/08/24 mL) subcutaneous pen (Lantus Solostar U-100 Insulin) loperamide 2 mg capsule 2 mg PO UD PRN Diarrhea 02/05/24 06/08/24 omeprazole 40 mg capsule,delayed 40 mg PO DAILYBB 02/05/24 06/08/24 release acetaminophen 325 mg tablet 650 mg PO Q4 PRN Fever Or Pain 06/01/24 06/08/24 (Tylenol) furosemide 40 mg tablet (Lasix) 80 mg PO QAM PRN .EDEMA/WT GAIN 06/01/24 06/08/24 hydroxyzine HCl 25 mg tablet 25 mg PO TID PRN ITCHYNESS 06/01/24 06/08/24 potassium chloride 20 mEq 20 meq PO DAILY PRN .When lasix is 06/01/24 06/08/24 tablet,extended release given Previous Rx's Medication Instructions Recorded magnesium oxide 400 mg (241.3 mg 400 mg PO BID #0 tabs 03/20/23 magnesium) tablet clopidogrel 75 mg tablet 75 mg PO QAM #30 tabs 04/28/23 Results & Data (ED) Vital Signs Vital Signs - 24 hr 06/08/24 16:31 06/08/24 16:31 06/08/24 16:31 Temperature 36.8 C Temperature Source Temporal Artery Scan Pulse Rate 77 Pulse Rate from SpO2 Sensor Respiratory Rate 18 18 Blood Pressure 167/101 H Blood Pressure Mean 123 Pulse Oximetry 95 Oxygen Delivery Method Room Air Sepsis Recent Fever Within 48 Hours No Sepsis New/Unexplained Change in Mental Status N/A Sepsis Action Taken by Nursing No Action Required 06/08/24 17:01 06/08/24 17:29 06/08/24 17:44 Temperature Temperature Source Pulse Rate 72 86 Pulse Rate from SpO2 Sensor 72 Respiratory Rate 23 Blood Pressure 166/102 H Blood Pressure Mean 123 Pulse Oximetry 94 96 Oxygen Delivery Method Room Air Room Air Sepsis Recent Fever Within 48 Hours Sepsis New/Unexplained Change in Mental Status Sepsis Action Taken by Nursing 06/08/24 18:00 06/08/24 18:42 Temperature Temperature Source Pulse Rate 75 75 Pulse Rate from SpO2 Sensor 73 Respiratory Rate 17 21 Blood Pressure 177/99 H Blood Pressure Mean 130 Pulse Oximetry 93 92 Oxygen Delivery Method Sepsis Recent Fever Within 48 Hours Sepsis New/Unexplained Change in Mental Status Sepsis Action Taken by Nursing Laboratory Data Attestation: I reviewed the patient's lab results. 06/08/24 16:20 06/08/24 17:13 Lab Results 06/08/24 06/08/2406/08/24 Range/Units 16:20 16:58 17:06 WBC 5.44 (4.8-10.8) K/ul RBC 3.83 L (4.20-5.40) M/uL Hgb 9.8 L (12.0-16.0) g/dl POC Hgb 9.9 L (12.0-16.0) g/dl Hct 31.9 L (37.0-47.0) % POC Hct 29 L (37-47) % MCV 83.3 (80.0-100.0) fL MCH 25.6 (25.0-34.0) pg MCHC 30.7 L (32.0-36.0) g/dL RDW Std Deviation 50.4 H (36.4-46.3) fL RDW Coeff of Sam 16.6 H (11.5-14.5) % Plt Count 231 (130-400) K/uL MPV 10.5 (9.4-12.4) fL Immature Gran % (Auto) 0.2 % Neut % (Auto) 37.2 % Lymph % (Auto) 42.3 % [place] % (Auto) 15.3 % Eos % (Auto) 3.7 % Baso % (Auto) 1.3 % Neut # (Auto) 2.03 (1.40-6.50) K/uL Lymph # (Auto) 2.30 (1.20-3.40) K/uL [place] # (Auto) 0.83 H (0.11-0.59) K/uL Eos # (Auto) 0.20 (0.00-0.50) K/uL Baso # (Auto) 0.07 (0.00-0.20) K/uL Immature Gran # (Auto) 0.01 (0.01-0.20) K/uL PT 10.6 (9.0-12.0) Seconds INR 1.0 (0.9-1.1) POC Sodium 140 (135-144) mmol/L Sodium (136-145) mmol/L POC Potassium 4.1 (3.3-5.0) mmol/L Potassium (3.5-5.1) mmol/L POC Chloride 104 (101-112) mmol/L Chloride (98-107) mmol/L Carbon Dioxide (21-32) mmol/L POC Total CO2 26 (24-31) mmol/L Anion Gap (3-11) POC Anion Gap 15.0 L (16-25) mmol/L POC BUN 11 (7-18) mg/dl BUN (6-23) mg/dl Creatinine (0.6-1.2) mg/dl POC Creatinine 1.2 (0.6-1.3) mg/dl Est Cr Clr Drug Dosing ml/min Est GFR ( Amer) ml/min Est GFR (Non-Af Amer) ml/min BUN/Creatinine Ratio (10-20) Glucose (70-99(Fasting)) mg/dl POC Glucose (other) 171 H (70-99) mg/dl Calcium (8.6-10.3) mg/dl POC Ioniz Calcium [place] 1.28 (1.12-1.32) mmol/l Phosphorus (2.5-4.9) mg/dl Magnesium (1.7-2.4) mg/dl Iron (35-150) mcg/dl TIBC (250-450) mcg/dl Unsaturated IBC (155-355) mcg/dl Transferrin % Sat (15-50) % Ferritin (8-388) ng/ml Total Bilirubin (0.2-1.0) mg/dl AST (13-39) U/L ALT (7-52) U/L Alkaline Phosphatase (34-104) U/L Troponin I High Sens (0-14) pg/ml Total Protein (6.0-8.3) gm/dl Albumin (3.4-5.0) gm/dl Globulin (2.5-4.0) gm/dl Albumin/Globulin Ratio (0.9-2) Lipase (11-82) U/L Vitamin B12 (180-914) pg/ml Folate (>5.38) ng/ml Urine Color Yellow Urine Appearance Clear (Clear) Urine pH 6.5 (4.5-7.5) Ur Specific [place] 1.008 (1.000-1.030) Urine Protein Negative (Negative) Urine Glucose (UA) Negative (Negative) Urine Ketones Negative (Negative) Urine Blood Negative (Negative) Urine Nitrite Negative (Negative) Urine Bilirubin Negative (Negative) Urine Urobilinogen Negative (Negative) Ur Leukocyte Esterase Trace H (Negative) Urine WBC (Auto) 0-5 (0-5) /hpf Urine RBC (Auto) 0-2 (0-2) /hpf U Hyaline Cast (Auto) 0-2 (0-2) /lpf U Epithel Cells (Auto) 0-2 (0-2) /hpf Urine Bacteria (Auto) None Seen (None Seen) Urine Opiates Screen Neg (Neg) Ur Methadone, Qual Neg (Neg) Urine Fentanyl Screen Neg (Neg) Urine Barbiturates Neg (Neg) Ur Phencyclidine (PCP) Neg (Neg) U Amphetamin/Meth Scrn Neg (Neg) MDMA (Ecstasy) Screen Neg (Neg) U Benzodiazepines Scrn Neg (Neg) Ur Cocaine Metabolite Neg (Neg) U Marijuana (THC) Screen Neg (Neg) 06/08/24 Range/Units 17:13 WBC (4.8-10.8) K/ul RBC (4.20-5.40) M/uL Hgb (12.0-16.0) g/dl POC Hgb (12.0-16.0) g/dl Hct (37.0-47.0) % POC Hct (37-47) % MCV (80.0-100.0) fL MCH (25.0-34.0) pg MCHC (32.0-36.0) g/dL RDW Std Deviation (36.4-46.3) fL RDW Coeff of Sam (11.5-14.5) % Plt Count (130-400) K/uL MPV (9.4-12.4) fL Immature Gran % (Auto) % Neut % (Auto) % Lymph % (Auto) % [place] % (Auto) % Eos % (Auto) % Baso % (Auto) % Neut # (Auto) (1.40-6.50) K/uL Lymph # (Auto) (1.20-3.40) K/uL [place] # (Auto) (0.11-0.59) K/uL Eos # (Auto) (0.00-0.50) K/uL Baso # (Auto) (0.00-0.20) K/uL Immature Gran # (Auto) (0.01-0.20) K/uL PT (9.0-12.0) Seconds INR (0.9-1.1) POC Sodium (135-144) mmol/L Sodium 139 (136-145) mmol/L POC Potassium (3.3-5.0) mmol/L Potassium 4.1 (3.5-5.1) mmol/L POC Chloride (101-112) mmol/L Chloride 108 H (98-107) mmol/L Carbon Dioxide 24 (21-32) mmol/L POC Total CO2 (24-31) mmol/L Anion Gap 7 (3-11) POC Anion Gap (16-25) mmol/L POC BUN (7-18) mg/dl BUN 12 (6-23) mg/dl Creatinine 0.99 (0.6-1.2) mg/dl POC Creatinine (0.6-1.3) mg/dl Est Cr Clr Drug Dosing 50.7 ml/min Est GFR ( Amer) 62.4 ml/min Est GFR (Non-Af Amer) 53.8 ml/min BUN/Creatinine Ratio 12.1 (10-20) Glucose 174 H (70-99(Fasting)) mg/dl POC Glucose (other) (70-99) mg/dl Calcium 9.3 (8.6-10.3) mg/dl POC Ioniz Calcium [place] (1.12-1.32) mmol/l Phosphorus 3.2 (2.5-4.9) mg/dl Magnesium 1.9 (1.7-2.4) mg/dl Iron 27 L (35-150) mcg/dl TIBC 404 (250-450) mcg/dl Unsaturated IBC 377 H (155-355) mcg/dl Transferrin % Sat 7 L (15-50) % Ferritin 8.4 (8-388) ng/ml Total Bilirubin 0.4 (0.2-1.0) mg/dl AST 14 (13-39) U/L ALT 7 (7-52) U/L Alkaline Phosphatase 51 (34-104) U/L Troponin I High Sens 9.5 (0-14) pg/ml Total Protein 6.0 (6.0-8.3) gm/dl Albumin 3.6 (3.4-5.0) gm/dl Globulin 2.4 L (2.5-4.0) gm/dl Albumin/Globulin Ratio 1.5 (0.9-2) Lipase 77 (11-82) U/L Vitamin B12 271 (180-914) pg/ml Folate > 22.30 (>5.38) ng/ml Urine Color Urine Appearance (Clear) Urine pH (4.5-7.5) Ur Specific [place] (1.000-1.030) Urine Protein (Negative) Urine Glucose (UA) (Negative) Urine Ketones (Negative) Urine Blood (Negative) Urine Nitrite (Negative) Urine Bilirubin (Negative) Urine Urobilinogen (Negative) Ur Leukocyte Esterase (Negative) Urine WBC (Auto) (0-5) /hpf Urine RBC (Auto) (0-2) /hpf U Hyaline Cast (Auto) (0-2) /lpf U Epithel Cells (Auto) (0-2) /hpf Urine Bacteria (Auto) (None Seen) Urine Opiates Screen (Neg) Ur Methadone, Qual (Neg) Urine Fentanyl Screen (Neg) Urine Barbiturates (Neg) Ur Phencyclidine (PCP) (Neg) U Amphetamin/Meth Scrn (Neg) MDMA (Ecstasy) Screen (Neg) U Benzodiazepines Scrn (Neg) Ur Cocaine Metabolite (Neg) U Marijuana (THC) Screen (Neg) Administered Medications Enoxaparin Sodium (Enoxaparin Inj 40 Mg/0.4 Ml Syr) 40 mg SQ Q24H [facility] Stop: 07/08/24 20:59 Last Admin: 06/08/24 21:55 Dose: 40 mg Documented By: CRAIG Insulin Aspart (Insulin Aspart Per Unit Charge) 0 units SC ACHS ROSANNA Stop: 07/08/24 20:59 Last Admin: 06/08/24 21:56 Dose: 1 units Documented By: CRAIG Co-signed By: YESICA Insulin Glargine (Lantus Per Unit Charge) 5 units SQ BID ROSANNA Stop: 07/08/24 20:59 Last Admin: 06/08/24 21:55 Dose: 5 units Documented By: CRAIG Co-signed By: YESICA Discontinued Medications Sodium Chloride (Nss) 500 mls @ 999 mls/hr IV .Q31M STA Stop: 06/08/24 17:31 Last Infusion: 06/08/24 18:43 Dose: Infused Documented By: Admin: 06/08/24 17:16 Dose: 999 mls/hr Documented By: ANEESH Ioversol (Optiray 320 125ml) 119 ml IV ONCE ONE Stop: 06/08/24 17:38 Last Admin: 06/08/24 17:37 Dose: 119 ml Documented By: EAB Imaging Data Radiologist's Impression: Chest X-Ray 06/08/24 17:01 XR chest 1V portable CLINICAL HISTORY: ams TECHNIQUE: Single frontal radiograph of the chest was obtained. Comparison: Comparison is made to chest radiograph 06/01/2024 FINDINGS: No lines and tubes are seen. Cardiomegaly is noted. The aortic arch is calcified. The lungs are clear. No evidence of pleural effusion or pneumothorax. IMPRESSION: No acute chest disease. Cardiomegaly is noted. ACT 112: Negative or not required by law. Electronically signed by: Elías Srinivasan M.D. 06/08/2024 5:[address] 06/08/24 17:15 CT angio neck with con, CT head/brain wo con, CT angio head w con CLINICAL HISTORY: unresponsive episode TECHNIQUE: Contiguous axial CT images of the head were acquired from the base of the skull to the vertex without intravenous contrast administration. CT angiography of the head and neck was performed following intravenous administration of iodinated contrast. Coronal and sagittal MIPS were obtained from the axial data set and were submitted for review. Automated dose lowering techniques and/or adjustment according to patient size were utilized for this examination. All measurements were calculated based on NASCET criteria. CT DOSE: 1089.33 mGy.cm Comparison: None available at the time of this dictation. FINDINGS: CT head: Encephalomalacia compatible with prior infarcts are seen most prominently in the bilateral parietal lobes and left cerebellum. Lungs and soft tissues are unremarkable. CTA Neck: A 3 vessel aortic arch is shown. There is no significant atherosclerotic plaque in the aortic arch or the origins of the innominate, left common carotid, and left subclavian arteries. The common carotid, external carotid, cervical segments of the internal carotid arteries, and the cervical segments of the vertebral arteries are patent without hemodynamically significant stenosis. The left vertebral artery is dominant. CTA Head: The anterior and posterior cerebral circulations are patent. No hemodynamically significant stenosis, aneurysm, dissection, or arteriovenous malformation is shown. IMPRESSION: 1. No acute intracranial hemorrhage, evidence of acute territorial infarction, or other acute intracranial disease process. 2. No occlusion, hemodynamically significant stenosis, or dissection in the major cervical arteries. 3. No occlusion, hemodynamically significant stenosis, aneurysm, dissection, or arteriovenous malformation in the major intracranial arteries. Assessment of stenosis of the internal carotid arteries is based on NASCET criteria. ACT 112: Negative or not required by law. Electronically signed by: Elías Srinivasan M.D. 06/08/2024 5:46 PM Head CTA 06/08/24 17:15 CT angio neck with con, CT head/brain wo con, CT angio head w con CLINICAL HISTORY: unresponsive episode TECHNIQUE: Contiguous axial CT images of the head were acquired from the base of the skull to the vertex without intravenous contrast administration. CT angiography of the head and neck was performed following intravenous administration of iodinated contrast. Coronal and sagittal MIPS were obtained from the axial data set and were submitted for review. Automated dose lowering techniques and/or adjustment according to patient size were utilized for this examination. All measurements were calculated based on NASCET criteria. CT DOSE: 1089.33 mGy.cm Comparison: None available at the time of this dictation. FINDINGS: CT head: Encephalomalacia compatible with prior infarcts are seen most prominently in the bilateral parietal lobes and left cerebellum. Lungs and soft tissues are unremarkable. CTA Neck: A 3 vessel aortic arch is shown. There is no significant atherosclerotic plaque in the aortic arch or the origins of the innominate, left common carotid, and left subclavian arteries. The common carotid, external carotid, cervical segments of the internal carotid arteries, and the cervical segments of the vertebral arteries are patent without hemodynamically significant stenosis. The left vertebral artery is dominant. CTA Head: The anterior and posterior cerebral circulations are patent. No hemodynamically significant stenosis, aneurysm, dissection, or arteriovenous malformation is shown. IMPRESSION: 1. No acute intracranial hemorrhage, evidence of acute territorial infarction, or other acute intracranial disease process. 2. No occlusion, hemodynamically significant stenosis, or dissection in the major cervical arteries. 3. No occlusion, hemodynamically significant stenosis, aneurysm, dissection, or arteriovenous malformation in the major intracranial arteries. Assessment of stenosis of the internal carotid arteries is based on NASCET criteria. ACT 112: Negative or not required by law. Electronically signed by: Elías Srinivasan M.D. 06/08/2024 5:46 PM Neck CTA 06/08/24 17:15 CT angio neck with con, CT head/brain wo con, CT angio head w con CLINICAL HISTORY: unresponsive episode TECHNIQUE: Contiguous axial CT images of the head were acquired from the base of the skull to the vertex without intravenous contrast administration. CT angiography of the head and neck was performed following intravenous administration of iodinated contrast. Coronal and sagittal MIPS were obtained from the axial data set and were submitted for review. Automated dose lowering techniques and/or adjustment according to patient size were utilized for this examination. All measurements were calculated based on NASCET criteria. CT DOSE: 1089.33 mGy.cm Comparison: None available at the time of this dictation. FINDINGS: CT head: Encephalomalacia compatible with prior infarcts are seen most prominently in the bilateral parietal lobes and left cerebellum. Lungs and soft tissues are unremarkable. CTA Neck: A 3 vessel aortic arch is shown. There is no significant atherosclerotic plaque in the aortic arch or the origins of the innominate, left common carotid, and left subclavian arteries. The common carotid, external carotid, cervical segments of the internal carotid arteries, and the cervical segments of the vertebral arteries are patent without hemodynamically significant stenosis. The left vertebral artery is dominant. CTA Head: The anterior and posterior cerebral circulations are patent. No hemodynamically significant stenosis, aneurysm, dissection, or arteriovenous malformation is shown. IMPRESSION: 1. No acute intracranial hemorrhage, evidence of acute territorial infarction, or other acute intracranial disease process. 2. No occlusion, hemodynamically significant stenosis, or dissection in the major cervical arteries. 3. No occlusion, hemodynamically significant stenosis, aneurysm, dissection, or arteriovenous malformation in the major intracranial arteries. Assessment of stenosis of the internal carotid arteries is based on NASCET criteria. ACT 112: Negative or not required by law. Electronically signed by: Elías Srinivasan M.D. 06/08/2024 5:46 PM Discharge Plan Visit Data Chief Complaint: Unresponsive Stated Complaint: UNRESPONSIVE ED Provider: Efra Saldana Discharge Problem: Episode of unresponsiveness, Dementia, Cerebrovascular disease Patient Disposition: Admitted As Inpatient Discharge Instructions Interventions: ED Discharge Assessment Last Done: 06/08/24 20:14 Discharge Problem: Dementia Qualifiers: Dementia type: vascular dementia Dementia severity: unspecified severity D ementia behavioral or psychological symptom: unspecified whether behavioral, psychotic, or mood disturbance or anxiety Qualified Code(s): F01.50 - Vascular dementia, unspecified severity, without behavioral disturbance, psychotic disturbance, mood disturbance, and anxiety
[2024-06-08 17:10] LABS: iSTAT Creatinine 1.2 mg/dl (0.6-1.3); iSTAT Hemoglobin 9.9 g/dl (12.0-16.0); iSTAT Ionized Calcium 1.28 mmol/l (1.12-1.32); iSTAT Potassium 4.1 mmol/L (3.3-5.0)
[2024-06-08] MEDS: SODIUM CHLORIDE 0.9% 500 ML IV STA (17:16)
[2024-06-08 17:20] LABS: Basophils # (auto) 0.07 K/uL (0.00-0.20); Basophils % (auto) 1.3 %; Eosinophils % (auto) 3.7 %; Hematocrit (blood only) 31.9 % (37.0-47.0); Hemoglobin 9.8 g/dl (12.0-16.0); Immature Granulocytes # (auto) 0.01 K/uL (0.01-0.20); Immature Granulocytes % (auto) 0.2 %; Lymphocytes % (auto) 42.3 %; Mean Corpuscular Hemoglobin 25.6 pg (25.0-34.0); Mean Corpuscular Hgb Conc 30.7 g/dL (32.0-36.0); Mean Corpuscular Volume 83.3 fL (80.0-100.0); Mean Platelet Volume 10.5 fL (9.4-12.4); Monocytes # (auto) 0.83 K/uL (0.11-0.59); Monocytes % (auto) 15.3 %; Neutrophils # (auto) 2.03 K/uL (1.40-6.50); Neutrophils % (auto) 37.2 %; Platelet Count 231 K/uL (130-400); RDW Coefficient of Variation 16.6 % (11.5-14.5); RDW Standard Deviation 50.4 fL (36.4-46.3); Red Blood Count 3.83 M/uL (4.20-5.40); White Blood Count 5.44 K/ul (4.8-10.8)
--- NOTE | 2024-06-08 17:25 | XRay Report ---
XR chest 1V portable CLINICAL HISTORY: ams TECHNIQUE: Single frontal radiograph of the chest was obtained. Comparison: Comparison is made to chest radiograph 06/01/2024 FINDINGS: No lines and tubes are seen. Cardiomegaly is noted. The aortic arch is calcified. The lungs are clear . No evidence of pleural effusion or pneumothorax. IMPRESSION: No acute chest disease. Cardiomegaly is noted. ACT 112: Negative or not required by law. Electronically signed by: Elías Srinivasan M.D. 06/08/2024 5:23 PM
[2024-06-08 17:29] LABS: Appearance Urine Clear (Clear); Bacteria Urine Automated None Seen (None Seen); Bilirubin Urine Negative (Negative); Blood Urine Negative (Negative); Cast Urine Automated 0-2 /lpf (0-2); Color Urine Yellow; Epithelial Cell Urine Auto 0-2 /hpf (0-2); Glucose Urine UA Negative (Negative); Ketones Urine Negative (Negative); Leukocyte Esterase Urine Trace (Negative); Nitrite Urine Negative (Negative); Protein Urine Negative (Negative); RBC Urine Automated 0-2 /hpf (0-2); Specific Gravity Urine 1.008 (1.000-1.030); Urobilinogen Urine Negative (Negative); WBC Urine Automated 0-5 /hpf (0-5); pH Urine 6.5 (4.5-7.5)
[2024-06-08] MEDS: OPTIRAY 320 125ml IV ONE (17:37)
--- NOTE | 2024-06-08 17:49 | CT Scan Report ---
CT angio neck with con, CT head/brain wo con, CT angio head w con CLINICAL HISTORY: unresponsive episode TECHNIQUE: Contiguous axial CT images of the head were acquired from the base of the skull to the yuan candy without intravenous contrast administration. CT angiography of the head and neck was performed f ollowing intravenous administration of iodinated contrast. Coronal and sagittal MIPS were obtained fr om the axial data set and were submitted for review. Automated dose lowering techniques and/or adjus tment according to patient size were utilized for this examination. All measurements were calculated based on NASCET criteria. CT DOSE: 1089.33 mGy.cm Comparison: None available at the time of this dictation. FINDINGS: CT head: Encephalomalacia compatible with prior infarcts are seen most prominently in the bilateral p arietal lobes and left cerebellum. Lungs and soft tissues are unremarkable. CTA Neck: A 3 vessel aortic arch is shown. There is no significant atherosclerotic plaque in the aor tic arch or the origins of the innominate, left common carotid, and left subclavian arteries. The co mmon carotid, external carotid, cervical segments of the internal carotid arteries, and the cervical segments of the vertebral arteries are patent without hemodynamically significant stenosis. The left vertebral artery is dominant. CTA Head: The anterior and posterior cerebral circulations are patent. No hemodynamically significan t stenosis, aneurysm, dissection, or arteriovenous malformation is shown. IMPRESSION: 1. No acute intracranial hemorrhage, evidence of acute territorial infarction, or other acute intrac ranial disease process. 2. No occlusion, hemodynamically significant stenosis, or dissection in the major cervical arteries. 3. No occlusion, hemodynamically significant stenosis, aneurysm, dissection, or arteriovenous malfor mation in the major intracranial arteries. Assessment of stenosis of the internal carotid arteries is based on NASCET criteria. ACT 112: Negative or not required by law. Electronically signed by: Elías Srinivasan M.D. 06/08/2024 5:46 PM
[2024-06-08 17:53] LABS: Prothrombin Time 10.6 Seconds (9.0-12.0)
[2024-06-08 18:10] LABS: Albumin Level 3.6 gm/dl (3.4-5.0); Bilirubin,Total 0.4 mg/dl (0.2-1.0); Calcium 9.3 mg/dl (8.6-10.3); Magnesium 1.9 mg/dl (1.7-2.4); Potassium 4.1 mmol/L (3.5-5.1)
[2024-06-08 18:16] LABS: Albumin Globulin Ratio 1.5 (0.9-2); BUN Creatinine Ratio 12.1 (10-20); Creatinine Clr Calc Pharmacy 50.7 ml/min; Est GFR (African American) 62.4 ml/min; Est GFR (Non-African American) 53.8 ml/min; Globulin 2.4 gm/dl (2.5-4.0); Phosphorus 3.2 mg/dl (2.5-4.9)
[2024-06-08 18:18] LABS: Troponin I High Sensitivity 9.5 pg/ml (0-14)
[2024-06-08 18:31] LABS: Amphetamines+Metham, Urine Neg (Neg); Barbiturates, Urine Neg (Neg); Benzodiazepine, Urine Neg (Neg); Cocaine, Urine Neg (Neg); Fentanyl, Urine Neg (Neg); MDMA (Ecstacy), Urine Neg (Neg); Marijuana, Urine Neg (Neg); Methadone, Urine Neg (Neg); Opiate, Urine Neg (Neg); Phencyclidine, Urine Neg (Neg)
--- NOTE | 2024-06-08 19:09 | History & Physical Report ---
Date of Service June 08, 2024 Assessment & Plan (1) Unresponsive episode: Plan: Admit to med telemetry Currently stable and appears back to her neurologic baseline per family Patient return for another unresponsive episode occurred earlier today at her healthcare facility Appears that patient was confused upon waking on EMS arrival as she was agitated and attempted to bite EMS staff Besides anemia her workup is otherwise unremarkable Again suspicion for possible seizure is higher in the differential at this point as she is without signs of infection or dehydration, cannot rule out possible behavioral component related to her known dementia as patient appears at times while in the ED to refuse to interact with staff For now we will monitor on seizure precautions consult neurology for further evaluation and possible initiation of antiepileptics Fall/aspiration precautions Heart healthy/DM type II diet AM CBC, CMP, mag, PT/ (2) Anemia: Plan: Hemoglobin 9.8 today, down from 11.1 as of 06/03/2024 No signs of bleeding on exam Will obtain iron studies, B12, and folic acid levels Monitor daily CBC (3) Hypothyroidism: Plan: Continue levothyroxine (4) Diabetes: Plan: Hold metformin Previously tolerated 5 units Lantus twice daily Start CF of 50 and CR 15 ACHS (5) HTN (hypertension): Plan: Currently stable Continue carvedilol (6) Dementia: Plan: Continue donepezil Plan The patient was discussed with Dr. Tyson at the time of the admission History of Present Illness Chief Complaint: Unresponsive episode Primary Care Provider: Bonifacio Ibanez DO Huerta is a pleasant 78-year-old female with PMH of dementia, CVA, DM, acute metabolic encephalopathy, depression, neuropathy, CHF, GERD, HLD cerebrovascular disease, and multiple admissions over the past year due to recurrent unresponsive episodes who presented to [facility] ED via EMS on 06/08/24 from her assisted living facility for another episode of unresponsiveness. She was noted to be mildly hypertensive on arrival at 167/101 but otherwise stable. Labs were significant for hemoglobin of 9.8 (down from 11 as of 06/03/2024) but were otherwise unremarkable. Chest x-ray, CT of the head and brain without contrast, and CTA of the head and neck were read as unremarkable. Prior to admission the patient was given 500 mL NSS. Patient was lying in bed no acute distress at time of exam with her daughter bedside, history is really obtained from the patient's daughter due to her baseline history of dementia. Daughter explains that the facility called her to explain that the patient had another sudden episode of unresponsiveness while in her room. Patient is remain reportedly looked over and noticed that she was not responding and would not wake calling her name or shaking her. EMS reported that the facility staff tried to break her with sternal rubs but she was not responding. By the time EMS arrived the patient was alert but combative reportedly tried to bite them. Patient had otherwise been in her normal state of health. Patient has no complaints of is alert and following commands. Please refer to Dr. Tyson's attestation for any changes to treatment plan Allergies Allergy/AdvReac Type Severity Reaction Status Date / Time aspirin Allergy Severe Hives Verified 06/08/24 19:49 NSAIDS (Non-Steroidal Allergy Intermediate Hives Verified 06/08/24 19:49 Anti-Inflamma Penicillins Allergy Intermediate Hives Verified 06/08/24 19:49 vancomycin Allergy Intermediate Redness of Verified 06/08/24 19:49 Skin fenofibrate Allergy Unknown ON PT MED Verified 06/08/24 19:49 LIST naproxen Allergy Unknown Unknown - Verified 06/08/24 19:49 On Med List from [facility] propoxyphene Allergy Unknown ON PT MED Verified 06/08/24 19:49 LIST Home Medications Medication Instructions Recorded Confirmed Type carvedilol 3.125 mg tablet 3.125 mg PO BID 01/29/22 06/08/24 History paroxetine HCl 20 mg tablet 20 mg PO HS 01/29/22 06/08/24 History rosuvastatin 20 mg tablet 20 mg PO HS 01/29/22 06/08/24 History metformin 1,000 mg tablet 1,000 mg PO QAM 01/14/23 06/08/24 History cholecalciferol (vitamin D3) 25 25 mcg PO QAM 03/17/23 06/08/24 History mcg (1,000 unit) capsule (Vitamin D3) levothyroxine 25 mcg tablet 25 mcg PO DAILYBB 03/17/23 06/08/24 History (Synthroid) multivitamin with minerals-folic 1 tab PO QAM 03/17/23 06/08/24 History acid 200 mcg chewable tablet (Adult Multivitamin Gummies) magnesium oxide 400 mg (241.3 mg 400 mg PO BID #0 tabs 03/20/23 06/08/24 Rx magnesium) tablet clopidogrel 75 mg tablet 75 mg PO QAM #30 tabs 04/28/23 06/08/24 Rx diclofenac sodium 1 % topical gel 2 g topical QID PRN Pain 02/05/24 06/08/24 History donepezil 5 mg tablet 5 mg PO HS 02/05/24 06/08/24 History emollient combination no.92 1 applic topical BID Dry skin - 02/05/24 06/08/24 History (Lubriderm Daily Moisture lotion) Legs insulin glargine 100 unit/mL (3 10 unit subcut HS 02/05/24 06/08/24 History mL) subcutaneous pen (Lantus Solostar U-100 Insulin) loperamide 2 mg capsule 2 mg PO UD PRN Diarrhea 02/05/24 06/08/24 History omeprazole 40 mg capsule,delayed 40 mg PO DAILYBB 02/05/24 06/08/24 History release acetaminophen 325 mg tablet 650 mg PO Q4 PRN Fever Or Pain 06/01/24 06/08/24 History (Tylenol) furosemide 40 mg tablet (Lasix) 80 mg PO QAM PRN .EDEMA/WT GAIN 06/01/24 06/08/24 History hydroxyzine HCl 25 mg tablet 25 mg PO TID PRN ITCHYNESS 06/01/24 06/08/24 History potassium chloride 20 mEq 20 meq PO DAILY PRN .When lasix is 06/01/24 06/08/24 History tablet,extended release given Past Med/Surg History Problem List (Updated 06/08/24 @ 21:55 by Efra Saldana MD) Episode of unresponsiveness (Acute) Anemia (Acute) AMS (altered mental status) (Acute) Hypothyroidism HTN (hypertension) Dementia (Acute) Diabetes Unresponsive episode Syncope Dehydration Encephalopathy Elevated lactic acid level (Acute) Acute UTI (Acute) Sepsis (Acute) UTI (urinary tract infection) (Acute) Recurrent UTI (urinary tract infection) Ascending aorta dilatation Discussion about advance care planning held with family member Palliative care by specialist Confusion Cerebrovascular disease HLD (hyperlipidemia) GERD (gastroesophageal reflux disease) UTI (urinary tract infection), uncomplicated Generalized weakness Gait apraxia Stroke 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 Neuropathy Fatigue Hypomagnesemia (Acute) Infarction of kidney (Acute) Bladder spasms Depression Confusion and disorientation Seizure-like activity Hypotension Leg swelling AMS (altered mental status) (Acute) Acute hypotension (Acute) Elevated lactic acid level (Acute) SKY (acute kidney injury) Acute metabolic encephalopathy Morbid obesity Prolonged PTT Cerebrovascular disease Abnormal brain MRI Nonobstructive atherosclerosis of coronary artery LBBB (left bundle branch block) Thoracic aortic aneurysm Bilateral leg edema Medical History (Updated 06/08/24 @ 21:55 by Efra Saldana MD) Seizure, late effect of stroke Strain of rotator cuff of right shoulder No pertinent family history Surgical History S/P colonoscopy S/P hysterectomy S/P appendectomy History of back surgery Status post right knee replacement No pertinent past surgical history Social History Smoking Status: Never smoker Second Hand Exposure: No; Do You Dip or Chew Tobacco: No; Tobacco Cessation Education Requested by Patient: No Hx Alcohol Use: No Hx Substance Use: No Preferred Language: Northern Irish Communication Ability: Effective Visual Impairment: No Limitations Hearing Ability: Normal Production Welder Required: No Beliefs That Will Affect Care: None marital status: / Current Living Situation: Personal Care Facility Current Living Situation Comment: At [facility] current occupational status: retired Other Information That Helps Us Care for You: No Feels Safe at Home: Yes Safety Concerns: Feels Safe At This Time Childhood Exposure to Second-Hand Smoke: No Diet: diabetic Dental Care, Regularly: No Physical Activity Frequency: Does not Exercise Seatbelt Use: always Sunscreen Use: No Assistive Devices: Walker Physical Exam Physical Exam: Physical Exam: General: In no acute distress, stated age, well-nourished, good hygiene HEENT: Normocephalic, atraumatic, no scleral icterus, pupils around round, symmetrical, and reactive to light, moist mucus membranes, trachea midline, no thyromegaly Chest/Pulm: No respiratory distress, symmetrical chest expansion, clear breath sounds throughout Cardiac: RRR, no murmurs noted Abdomen: Negative for ascites and bruising, normoactive bowel sounds, soft, non-tender to palpation throughout : Bey catheter placed in the ED is currently draining clear yellow urine Musculoskeletal: Symmetrical and without signs of acute trauma, upper and lower extremities with full ROM, no atrophy, spasticity, or flaccidity Extremities: Radial, dorsalis pedis, and posterior tibial pulses are intact and symmetrical, no edema noted in the BL LE's Skin: Warm, dry, no rashes , lesions, or scars noted Neuro: Alert and oriented to person only (is her baseline), no focal defects, CN II-XII tested and intact, no tremors noted Psych: No acute distress, pleasantly confused, calm and cooperative during the exam Results & Data Results & Data Vital Signs (Past 12 Hours) Vital Signs Temp Pulse Resp BP Pulse Ox O2 Del Method 06/08/24 18:42 75 21 92 06/08/24 18:00 75 17 177/99 H 93 06/08/24 17:44 86 23 166/102 H 96 Room Air 06/08/24 17:29 72 06/08/24 17:01 94 Room Air 06/08/24 16:31 18 06/08/24 16:31 Room Air 06/08/24 16:31 36.8 C 77 18 167/101 H 95 Laboratory Results Abnormal lab results 06/08/24 06/08/24 06/08/24 Range/Units 16:20 16:58 17:06 RBC 3.83 L (4.20-5.40) M/uL Hgb 9.8 L (12.0-16.0) g/dl POC Hgb 9.9 L (12.0-16.0) g/dl Hct 31.9 L (37.0-47.0) % POC Hct 29 L (37-47) % MCHC 30.7 L (32.0-36.0) g/dL RDW Std Deviation 50.4 H (36.4-46.3) fL RDW Coeff of Sam 16.6 H (11.5-14.5) % Coffey # (Auto) 0.83 H (0.11-0.59) K/uL Chloride (98-107) mmol/L POC Anion Gap 15.0 L (16-25) mmol/L Glucose (70-99(Fasting)) mg/dl POC Glucose (other) 171 H (70-99) mg/dl Globulin (2.5-4.0) gm/dl Ur Leukocyte Esterase Trace H (Negative) 06/08/24 Range/Units 17:13 RBC (4.20-5.40) M/uL Hgb (12.0-16.0) g/dl POC Hgb (12.0-16.0) g/dl Hct (37.0-47.0) % POC Hct (37-47) % MCHC (32.0-36.0) g/dL RDW Std Deviation (36.4-46.3) fL RDW Coeff of Sam (11.5-14.5) % Coffey # (Auto) (0.11-0.59) K/uL Chloride 108 H (98-107) mmol/L POC Anion Gap (16-25) mmol/L Glucose 174 H (70-99(Fasting)) mg/dl POC Glucose (other) (70-99) mg/dl Globulin 2.4 L (2.5-4.0) gm/dl Ur Leukocyte Esterase (Negative) Diagnostic Findings Chest X-Ray 06/08/24 17:01 XR chest 1V portable CLINICAL HISTORY: ams TECHNIQUE: Single frontal radiograph of the chest was obtained. Comparison: Comparison is made to chest radiograph 06/01/2024 FINDINGS: No lines and tubes are seen. Cardiomegaly is noted. The aortic arch is calcified. The lungs are clear. No evidence of pleural effusion or pneumothorax. IMPRESSION: No acute chest disease. Cardiomegaly is noted. ACT 112: Negative or not required by law. Electronically signed by: Elías Srinivasan M.D. 06/08/2024 5:[address] 06/08/24 17:15 CT angio neck with con, CT head/brain wo con, CT angio head w con CLINICAL HISTORY: unresponsive episode TECHNIQUE: Contiguous axial CT images of the head were acquired from the base of the skull to the vertex without intravenous contrast administration. CT angiography of the head and neck was performed following intravenous administration of iodinated contrast. Coronal and sagittal MIPS were obtained from the axial data set and were submitted for review. Automated dose lowering techniques and/or adjustment according to patient size were utilized for this examination. All measurements were calculated based on NASCET criteria. CT DOSE: 1089.33 mGy.cm Comparison: None available at the time of this dictation. FINDINGS: CT head: Encephalomalacia compatible with prior infarcts are seen most prominently in the bilateral parietal lobes and left cerebellum. Lungs and soft tissues are unremarkable. CTA Neck: A 3 vessel aortic arch is shown. There is no significant atherosclerotic plaque in the aortic arch or the origins of the innominate, left common carotid, and left subclavian arteries. The common carotid, external carotid, cervical segments of the internal carotid arteries, and the cervical segments of the vertebral arteries are patent without hemodynamically significant stenosis. The left vertebral artery is dominant. CTA Head: The anterior and posterior cerebral circulations are patent. No hemodynamically significant stenosis, aneurysm, dissection, or arteriovenous malformation is shown. IMPRESSION: 1. No acute intracranial hemorrhage, evidence of acute territorial infarction, or other acute intracranial disease process. 2. No occlusion, hemodynamically significant stenosis, or dissection in the major cervical arteries. 3. No occlusion, hemodynamically significant stenosis, aneurysm, dissection, or arteriovenous malformation in the major intracranial arteries. Assessment of stenosis of the internal carotid arteries is based on NASCET criteria. ACT 112: Negative or not required by law. Electronically signed by: Elías Srinivasan M.D. 06/08/2024 5:46 PM Head CTA 06/08/24 17:15 CT angio neck with con, CT head/brain wo con, CT angio head w con CLINICAL HISTORY: unresponsive episode TECHNIQUE: Contiguous axial CT images of the head were acquired from the base of the skull to the vertex without intravenous contrast administration. CT angiography of the head and neck was performed following intravenous administration of iodinated contrast. Coronal and sagittal MIPS were obtained from the axial data set and were submitted for review. Automated dose lowering techniques and/or adjustment according to patient size were utilized for this examination. All measurements were calculated based on NASCET criteria. CT DOSE: 1089.33 mGy.cm Comparison: None available at the time of this dictation. FINDINGS: CT head: Encephalomalacia compatible with prior infarcts are seen most prominently in the bilateral parietal lobes and left cerebellum. Lungs and soft tissues are unremarkable. CTA Neck: A 3 vessel aortic arch is shown. There is no significant atherosclerotic plaque in the aortic arch or the origins of the innominate, left common carotid, and left subclavian arteries. The common carotid, external carotid, cervical segments of the internal carotid arteries, and the cervical segments of the vertebral arteries are patent without hemodynamically significant stenosis. The left vertebral artery is dominant. CTA Head: The anterior and posterior cerebral circulations are patent. No hemodynamically significant stenosis, aneurysm, dissection, or arteriovenous malformation is shown. IMPRESSION: 1. No acute intracranial hemorrhage, evidence of acute territorial infarction, or other acute intracranial disease process. 2. No occlusion, hemodynamically significant stenosis, or dissection in the major cervical arteries. 3. No occlusion, hemodynamically significant stenosis, aneurysm, dissection, or arteriovenous malformation in the major intracranial arteries. Assessment of stenosis of the internal carotid arteries is based on NASCET criteria. ACT 112: Negative or not required by law. Electronically signed by: Elías Srinivasan M.D. 06/08/2024 5:46 PM Neck CTA 06/08/24 17:15 CT angio neck with con, CT head/brain wo con, CT angio head w con CLINICAL HISTORY: unresponsive episode TECHNIQUE: Contiguous axial CT images of the head were acquired from the base of the skull to the vertex without intravenous contrast administration. CT angiography of the head and neck was performed following intravenous administration of iodinated contrast. Coronal and sagittal MIPS were obtained from the axial data set and were submitted for review. Automated dose lowering techniques and/or adjustment according to patient size were utilized for this examination. All measurements were calculated based on NASCET criteria. CT DOSE: 1089.33 mGy.cm Comparison: None available at the time of this dictation. FINDINGS: CT head: Encephalomalacia compatible with prior infarcts are seen most prominently in the bilateral parietal lobes and left cerebellum. Lungs and soft tissues are unremarkable. CTA Neck: A 3 vessel aortic arch is shown. There is no significant atherosclerotic plaque in the aortic arch or the origins of the innominate, left common carotid, and left subclavian arteries. The common carotid, external carotid, cervical segments of the internal carotid arteries, and the cervical segments of the vertebral arteries are patent without hemodynamically signifi cant stenosis. The left vertebral artery is dominant. CTA Head: The anterior and posterior cerebral circulations are patent. No hemodynamically significant stenosis, aneurysm, dissection, or arteriovenous malformation is shown. IMPRESSION: 1. No acute intracranial hemorrhage, evidence of acute territorial infarction, or other acute intracranial disease process. 2. No occlusion, hemodynamically significant stenosis, or dissection in the major cervical arteries. 3. No occlusion, hemodynamically significant stenosis, aneurysm, dissection, or arteriovenous malformation in the major intracranial arteries. Assessment of stenosis of the internal carotid arteries is based on NASCET criteria. ACT 112: Negative or not required by law. Electronically signed by: Elías Srinivasan M.D. 06/08/2024 5:46 PM Code Status & VTE Plan Code Status Full code VTE Prophylaxis Plan VTE Prophylaxis will be ordered: Yes Supervising Physician Co-Signing Physician Notes Patient seen and examined, chart reviewed, case discussed with MEDHAT Mohr and I agree with the assessment and plan as above. In brief, Deanna Mccormack is an 78yo female with HTN, HLP, DM and Dementia presenting with episode of unresponsiveness. Patient has had multiple similar episodes in the past. Today she was difficult to arouse. Now is back to her baseline. On exam she is resting comfortably, NAD Skin - intact, no rash HEENT - MMM, neck supple Heart - +S1/S2, regular, no m/r/g Lungs - CTA Abd - +BS, soft, NT/ND Labs and images reviewed Assessment/Plan Recurrent episodes of AMS, unresponsiveness. Etiology unclear. ?seizure ?dementia ?behavioral. Will consult Neurology, maintain seizure precautions Remainder of plan as above PG Care Time/CCT Total # of Minutes Spent Total Time Spent with Patient: Total time spent is greater than 50% in coordination of care (as documented) at patient's floor/unit and/or counseling patient: Coding [place] [address] INT INP/OBS CARE 2/55MIN Patient Type Established Medical Decision Making Moderate Complexity Diagnoses Unresponsive episode R40.4 Anemia D64.9 Anemia type: unspecified type Hypothyroidism E03.9 Diabetes E11.9 HTN (hypertension) I10 Dementia F03.90 Dementia behavioral or psychological symptom: unspecified whether behavioral, psychotic, or mood disturbance or anxiety Dementia severity: unspecified severity Dementia type: unspecified type (2) Anemia Anemia type: unspecified type Qualified Code(s): D64.9 - Anemia, unspecified (6) Dementia Dementia behavioral or psychological symptom: unspecified whether behavioral, psychotic, or mood disturbance or anxiety Dementia severity: unspecified severity Dementia type: unspecified type Qualified Code(s): F03.90 - Unspecified dementia, unspecified severity, without behavioral disturbance, psychotic disturbance, mood disturbance, and anxiety
[2024-06-08] MEDS ORDERED: GLUCAGON FOR INJ 1 MG VIAL SQ PRN (19:28)
[2024-06-08] MEDS ORDERED: GLUCOSE 40% GEL 15 GM TUBE PO PRN (19:28)
[2024-06-08] MEDS ORDERED: GLUCOSE 10 TAB/TUBE PO PRN (19:28)
[2024-06-08] MEDS ORDERED: CARBOHYDRATES FOR HYPOGLYCEMIA PO PRN (19:28)
[2024-06-08] MEDS ORDERED: DEXTROSE 50% 50 ML SYRINGE IV PRN (19:28)
[2024-06-08 21:25] LABS: Ferritin 8.4 ng/ml (8-388)
[2024-06-08] MEDS: ENOXAPARIN INJ 40 MG/0.4 ML SYR SQ SCH (21:55)
[2024-06-08] MEDS: LANTUS PER UNIT CHARGE SQ SCH (21:55)
[2024-06-08] MEDS: INSULIN ASPART PER UNIT CHARGE SC SCH (21:56)
[2024-06-08 21:57] LABS: Folate (Folic Acid),Ser orPlas > 22.30 ng/ml (>5.38)
[2024-06-08 21:58] LABS: Vitamin B12 271 pg/ml (180-914)
[2024-06-09 06:43] LABS: Basophils # (auto) 0.07 K/uL (0.00-0.20); Basophils % (auto) 1.3 %; Eosinophils # (auto) 0.27 K/uL (0.00-0.50); Eosinophils % (auto) 4.8 %; Hematocrit (blood only) 30.9 % (37.0-47.0); Hemoglobin 9.7 g/dl (12.0-16.0); Immature Granulocytes # (auto) 0.02 K/uL (0.01-0.20); Immature Granulocytes % (auto) 0.4 %; Lymphocytes # (auto) 2.26 K/uL (1.20-3.40); Lymphocytes % (auto) 40.4 %; Mean Corpuscular Hemoglobin 25.9 pg (25.0-34.0); Mean Corpuscular Hgb Conc 31.4 g/dL (32.0-36.0); Mean Corpuscular Volume 82.6 fL (80.0-100.0); Monocytes # (auto) 0.78 K/uL (0.11-0.59); Monocytes % (auto) 13.9 %; Neutrophils % (auto) 39.2 %; Platelet Count 228 K/uL (130-400); RDW Coefficient of Variation 16.6 % (11.5-14.5); RDW Standard Deviation 50.1 fL (36.4-46.3); Red Blood Count 3.74 M/uL (4.20-5.40)
[2024-06-09 06:50] LABS: BUN Creatinine Ratio 11.2 (10-20); Calcium 8.8 mg/dl (8.6-10.3); Creatinine Clr Calc Pharmacy 59.6 ml/min; Est GFR (African American) 63.1 ml/min; Est GFR (Non-African American) 54.5 ml/min
--- NOTE | 2024-06-09 08:25 | Hospitalist Progress Note ---
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 Multiple admissions for similar presentation in the past few years including two weeks ago. There has been suspicion for seizure disorder related to her old strokes in the past. EEGs were negative for epileptiform discharges January of 2023 and April 23 this year. Said to have been too sleepy on keppra in the past. Not currently on AED. Based on chart review at least some of the episodes have been associated with infection or dehydration and has been prone to acute encephalopathy. For this admission no infectious process or other acute illness identified. Episodes were not thought to be cardiogenic and ambulatory monitor recommended last admission. CT head, CTA head/neck, CXR, UA were negative on admission and labs unremarkable -consulted neurologist, consider trial of another AED. not clearly seizures however the spells could be and we lack an alternative explanation reviewed recommendations by Dr. Culp - start trial of lamotrigine 25 mg p.o. twice daily, increase to 50 mg p.o. twice daily in a week, follow-up with neurology PA in 2 to 3 weeks eventual dose titration to at least 200 mg daily. potential outpatient 3-day ambulatory EEG monitoring -seizure precautions -continue tele. home health travel ot evaluated recently and did not think the spells were cardiogenic. Ambulatory monitor is recommended (2) Anemia: Plan: Hemoglobin 10, mild anemia. Iron deficient - start qod ferrous sulfate B12 271 - clarify that she is still on oral supplement. folate normal B1 deficient in the past (04/2023) - continue oral supplement and recheck level (3) Hypothyroidism: Plan: Continue levothyroxine (4) Diabetes: Plan: Hold metformin Previously tolerated 5 units Lantus twice daily Start CF of 50 and CR 15 ACHS (5) HTN (hypertension): Plan: Currently stable Continue carvedilol (6) Dementia: Plan: Continue donepezil Plan Discontinue candelario History of strokes - continue plavix, rosuvastatin Depression - on paroxetine CKD 3 - Cr stable near 1 DVT ppx - cont enoxaparin I updated her daughter Ary by phone this afternoon Should be able to return home tomorrow to her facility if tolerating meds ok and no further events Admission and Anticipated Discharge Date Admission Date: June 08, 2024 Subjective sitting in chair by the window pleasantly confused does not have recall of recent events, tells me she lives at [facility] but cannot remember the new name of it and that her daughter is Ary no cough chest pain shortness of breath abdominal pain nausea vomiting or dysuria she has a Candelario catheter which must of been placed in the ED Physical Exam 2 Physical Exam: PHYSICAL EXAMINATION Last 24h vital signs reviewed, see documentation in flowsheet General: comfortable appearing, no distress, sitting in the chair by the window HEENT: Normocephalic, atraumatic, pupils round and equal, sclerae anicteric, no conjunctival injection, moist mucus membranes Lungs: Normal respiratory effort. Clear to auscultation bilaterally. No RRW Heart: Regular rate and rhythm, no murmurs. No JVD Abdomen: Soft, nontender, nondistended. Bowel sounds present. Candelario catheter in place with clear yellow urine Extremities: Warm, dry, well-perfused. No extremity edema. Neuro: Alert and oriented x self and to general situation of hospital but not fully oriented to situation, forgetful/vague historian, face symmetric, moves 4 extremities well Psych: Normal affect and behavior Results & Data Results & Data Vital Signs (Past 12 Hours) Vital Signs Temp Pulse Pulse Pulse Resp BP Pulse Ox 06/09/24 07:46 36.8 C 80 16 123/70 90 06/09/24 07:30 83 06/09/24 03:53 36.8 C 88 20 116/63 91 06/08/24 23:27 36.5 C 78 16 151/80 H 96 06/08/24 21:58 80 06/08/24 21:46 88 06/08/24 20:45 36.8 C 66 12 138/77 94 O2 Del Method 06/09/24 07:46 Room Air 06/09/24 07:30 06/09/24 03:53 Room Air 06/08/24 23:27 Room Air 06/08/24 21:58 06/08/24 21:46 06/08/24 20:45 Room Air Laboratory Results 06/09/24 05:42 06/09/24 05:42 PG Care Time/CCT Total # of Minutes Spent Total Time Spent with Patient: Total time spent is greater than 50% in coordination of care (as documented) at patient's floor/unit and/or counseling patient: Coding Level of Care Code 26419 SUB INP/OBS CARE 2MIN Diagnoses Unresponsive episode R40.4 Anemia D64.9 Anemia type: unspecified type Hypothyroidism E03.9 Diabetes E11.9 HTN (hypertension) I10 Dementia F01.50 Dementia behavioral or psychological symptom: unspecified whether behavioral, psychotic, or mood disturbance or anxiety Dementia severity: unspecified severity Dementia type: vascular dementia (2) Anemia Anemia type: unspecified type Qualified Code(s): D64.9 - Anemia, unspecified (6) Dementia Dementia behavioral or psychological symptom: unspecified whether behavioral, psychotic, or mood disturbance or anxiety Dementia severity: unspecified severity Dementia type: vascular dementia Qualified Code(s): F01.50 - Vascular dementia, unspecified severity, without behavioral disturbance, psychotic disturbance, mood disturbance, and anxiety
[2024-06-09] MEDS: MAGNESIUM OXIDE 400 MG TAB PO SCH (09:00)
[2024-06-09] MEDS: FERROUS SULFATE 325 MG TAB PO SCH (09:00)
[2024-06-09] MEDS: CLOPIDOGREL BISULFATE 75 MG TAB PO SCH (09:01)
[2024-06-09] MEDS: carvediloL 3.125 MG TAB PO SCH (09:02)
[2024-06-09] MEDS: THIAMINE HCL 100 MG TAB PO SCH (09:48)
[2024-06-09] MEDS: CYANOCOBALAMIN (B-12) 500 MCG TABLET PO SCH (09:49)
--- NOTE | 2024-06-09 12:11 | Neurology Consultation ---
Date of Consultation June 09, 2024 Assessment & Plan (1) Episode of unresponsiveness: (2) Dementia: Plan 78-year-old female with a history of multiple strokes in various vascular territories, chronic microvascular ischemic disease, cerebral atrophy, probable vascular dementia, further complicated by a history of recurrent collapse, loss of consciousness, unresponsive episodes. She has had 2 EEGs previously (April 2023 revealed encephalopathy, no epileptiform abnormalities, January 2023 was negative for epileptiform abnormalities as well.) The episodes of collapse have been quite prolonged and she has seen cardiology. Outpatient 30-day event monitoring has been recommended although suspicion for an underlying cardiac etiology was felt to be low. Donepezil was not felt to be contraindicated although it appears that she has not been receiving this medication in the context of this hospitalization. For the time being, I would recommend remaining off donepezil. I would recommend restarting an antiseizure medication given the probability that she has been experiencing recurrent seizures. Would recommend starting lamotrigine, starting with 25 mg twice daily, increase to 50 mg twice daily after 1 week. Further dosage up titration will be made in the outpatient setting, goal lamotrigine dosage at least 200 mg/day. Does not require another routine EEG at this time. Would consider 3-day ambulatory EEG monitoring as an outpatient. May follow-up with myself or an MARVA in neurology clinic in 2 to 3 weeks. History of Present Illness Reason for Consultation: unresponsive episodes Requesting Physician: Fani Attending Physician: Karolina Carrasco MD History of Present Illness The patient is an 78-year-old female whom I had seen in neurological consultation in April 2023 after several episodes of unresponsiveness. A brain MRI at that time had revealed multiple chronic infarcts, 1 within the left cerebellum, right frontoparietal region, and left occipital region. An EEG at that time indicated a mild encephalopathy, although no epileptiform abnormalities. She did exhibit some cognitive difficulties suggesting an underlying vascular dementia. However, with the recurrent episodes of unresponsiveness and multiple chronic infarcts, I considered the possibility of seizure disorder and had recommended treatment with Keppra in spite of the negative EEG at that time. She has followed with [facility] regarding a history of congestive heart failure, left bundle branch block. She has seen urology regarding recurrent urinary tract infections. She was admitted to the [facility] this past February for an episode of altered mental status, unresponsiveness. She was seen by [facility] neurology during a hospitalization last week, on June 02, 2000 3:24 additional episodes of unresponsiveness. It looks like her Keppra was discontinued quite sometime ago. It was not felt that her recurrent episodes were highly suggestive of seizure, however. Her Keppra has not been restarted. This morning, the patient is modestly confused, likely due to her underlying dementia, she is an unreliable historian. This patient had established with [facility] neurology in January 2022 for management of dementia, gait apraxia, action tremor. She is scored 22 out of 30 on a standardized MMSE at that time. Had been living alone, present for that appointment with her daughter, her spouse had in April 2021, daughter had been living close by. Had been exhibiting progressive difficulty with memory for several years but had been doing reasonably well with basic ADLs, family assisting with more complex tasks. I had recommended starting a low-dose of donepezil at that time. Allergies Allergy/AdvReac Type Severity Reaction Status Date / Time aspirin Allergy Severe Hives Verified 06/08/24 19:49 NSAIDS (Non-Steroidal Allergy Intermediate Hives Verified 06/08/24 19:49 Anti-Inflamma Penicillins Allergy Intermediate Hives Verified 06/08/24 19:49 vancomycin Allergy Intermediate Redness of Verified 06/08/24 19:49 Skin fenofibrate Allergy Unknown ON PT MED Verified 06/08/24 19:49 LIST naproxen Allergy Unknown Unknown - Verified 06/08/24 19:49 On Med List from [facility] propoxyphene Allergy Unknown ON PT MED Verified 06/08/24 19:49 LIST Home Medications Medication Instructions Recorded Confirmed Type carvedilol 3.125 mg tablet 3.125 mg PO BID 01/29/22 06/08/24 History paroxetine HCl 20 mg tablet 20 mg PO HS 01/29/22 06/08/24 History rosuvastatin 20 mg tablet 20 mg PO HS 01/29/22 06/08/24 History metformin 1,000 mg tablet 1,000 mg PO QAM 01/14/23 06/08/24 History cholecalciferol (vitamin D3) 25 25 mcg PO QAM 03/17/23 06/08/24 History mcg (1,000 unit) capsule (Vitamin D3) levothyroxine 25 mcg tablet 25 mcg PO DAILYBB 03/17/23 06/08/24 History (Synthroid) multivitamin with minerals-folic 1 tab PO QAM 03/17/23 06/08/24 History acid 200 mcg chewable tablet (Adult Multivitamin Gummies) magnesium oxide 400 mg (241.3 mg 400 mg PO BID #0 tabs 03/20/23 06/08/24 Rx magnesium) tablet clopidogrel 75 mg tablet 75 mg PO QAM #30 tabs 04/28/23 06/08/24 Rx diclofenac sodium 1 % topical gel 2 g topical QID PRN Pain 02/05/24 06/08/24 History donepezil 5 mg tablet 5 mg PO HS 02/05/24 06/08/24 History emollient combination no.92 1 applic topical BID Dry skin - 02/05/24 06/08/24 History (Lubriderm Daily Moisture lotion) Legs insulin glargine 100 unit/mL (3 10 unit subcut HS 02/05/24 06/08/24 History mL) subcutaneous pen (Lantus Solostar U-100 Insulin) loperamide 2 mg capsule 2 mg PO UD PRN Diarrhea 02/05/24 06/08/24 History omeprazole 40 mg capsule,delayed 40 mg PO DAILYBB 02/05/24 06/08/24 History release acetaminophen 325 mg tablet 650 mg PO Q4 PRN Fever Or Pain 06/01/24 06/08/24 History (Tylenol) furosemide 40 mg tablet (Lasix) 80 mg PO QAM PRN .EDEMA/WT GAIN 06/01/24 06/08/24 History hydroxyzine HCl 25 mg tablet 25 mg PO TID PRN ITCHYNESS 06/01/24 06/08/24 History potassium chloride 20 mEq 20 meq PO DAILY PRN .When lasix is 06/01/24 06/08/24 History tablet,extended release given Patient History Medical History Seizure, late effect of stroke Strain of rotator cuff of right shoulder No pertinent family history Surgical History S/P colonoscopy S/P hysterectomy S/P appendectomy History of back surgery Status post right knee replacement No pertinent past surgical history Social History Smoking Status: Never smoker Second Hand Exposure: No; Do You Dip or Chew Tobacco: No; Tobacco Cessation Education Requested by Patient: No Hx Alcohol Use: No Hx Substance Use: No Preferred Language: Turkish Communication Ability: Effective Visual Impairment: No Limitations Hearing Ability: Normal [employer] Driver Required: No Beliefs That Will Affect Care: None marital status: / Current Living Situation: Personal Care Facility Current Living Situation Comment: At [facility] facility current occupational status: retired Other Information That Helps Us Care for You: No Feels Safe at Home: Yes Safety Concerns: Feels Safe At This Time Childhood Exposure to Second-Hand Smoke: No Diet: diabetic Dental Care, Regularly: No Physical Activity Frequency: Does not Exercise Seatbelt Use: always Sunscreen Use: No Assistive Devices: Walker Review of Systems Constitutional: no fever and no chills Eyes: no blind spots and no diplopia Ear, Nose, Mouth, Throat: no hearing loss Respiratory: no cough and no dyspnea Cardiovascular: no chest pain and no palpitations Gastrointestinal: no nausea and no vomiting Genitourinary: + dysuria Musculoskeletal: no myalgia and no muscle weakness Integumentary: no rash and no lesions Neurologic: + memory loss; no headache(s) Psychiatric: no depression and no anxiety Hematologic / Lymphatic: no easy bleeding and no easy bruising Exam (Neuro) Constitutional: well developed and well nourished; no acute distress Eyes: normal visual garay by confrontation, PERRL and EOM intact bilaterally; no nystagmus Neurologic: Oriented to:: Person; negative Place or Time Memory: negative Short Term Intact or Remote Intact Attention: negative Span Intact or Concentration Intact Speech Fluency: negative Dysarthria or Dysfluency Speech Aphasia: negative Aphasia Fund of Knowledge: Vocabulary; negative Current Events or Past History Cranial Nerves: Normal II, III, IV, , V, VII, VIII, IX, X, XI and XII Motor Strength: Normal Lower Extremities and Normal Upper Extremities Motor Tone: Normal Lower Extremities and Normal Upper Extremities Muscle Bulk/Involuntary Movements: No Involuntary Movements; negative Muscle Atrophy Sensation: Light Touch Intact, Pain/Temperature Intact, Vibration Intact and Proprioception Intact Coordination: negative Dysdiadochokinesia, Finger-Nose Abnormal or Heel-Young Abnormal Deep Tendon Reflexes: Rt Triceps: 2+, Lt Triceps: 2+, Rt Biceps: 2+, Lt Biceps: 2+, Rt Brachioradialis: 2+, Lt Brachioradialis: 2+, Rt Patellar: 2+, Lt Patellar: 2+, Rt Ankle: 1+ and Lt Ankle: 1+ Special Tests: Babinski Present Details: Patient is jocular, mildly disinhibited Results & Data Vital Signs (Past 12 Hours) Vital Signs Temp Pulse Pulse Pulse Resp BP Pulse Ox 06/09/24 11:14 36.9 C 58 L 16 120/72 93 06/09/24 07:46 36.8 C 80 16 123/70 90 06/09/24 07:30 83 06/09/24 03:53 36.8 C 88 20 116/63 91 O2 Del Method 06/09/24 11:14 Room Air 06/09/24 07:46 Room Air 06/09/24 07:30 06/09/24 03:53 Room Air Laboratory Results WBC 5.60, hemoglobin 9.7, hematocrit 30.9, platelet count 228, sodium 141, potassium 4.0, BUN 11, creatinine 0.98, glucose 152, calcium 8.8, magnesium 1.9, AST 14, ALT 7, vitamin B12 271, folate greater than 22.30, TSH 1.941, urinalysis unremarkable, urine tox screen negative Diagnostic Findings A CT of the head is negative for hemorrhage or acute process. CTA of the head and neck are unremarkable. I independently reviewed these images. There is a chronic infarct within the left cerebellar hemisphere and a smaller chronic infarct within the right cerebellar hemisphere. There is a chronic left parietal infarct extending to the cortex and a chronic right frontoparietal infarct extending to the cortex as well. There is moderate generalized atrophy and chronic small vessel ischemic disease. Coding Level of Care Code 25203 INT INP/OBS CARE 3/75MIN Diagnoses Episode of unresponsiveness R40.4 Dementia F01.50 Dementia behavioral or psychological symptom: unspecified whether behavioral, psychotic, or mood disturbance or anxiety Dementia severity: unspecified severity Dementia type: vascular dementia Time Spent (min) 90 Comment Total time includes patient contact, chart review, counseling, note preparation (2) Dementia Dementia behavioral or psychological symptom: unspecified whether behavioral, psychotic, or mood disturbance or anxiety Dementia severity: unspecified severity Dementia type: vascular dementia Qualified Code(s): F01.50 - Vascular dementia, unspecified severity, without behavioral disturbance, psychotic disturbance, mood disturbance, and anxiety
--- NOTE | 2024-06-09 13:38 | Electrocardiogram Report ---
Test Reason : Blood Pressure : */* mmHG Vent. Rate : 79 BPM Atrial Rate : 79 BPM P-R Int : 186 ms QRS Dur : 140 ms QT Int : 456 ms P-R-T Axes : 20 -10 120 degrees QTcB Int : 522 ms Sinus rhythm with occasional Premature ventricular complexes Left bundle branch block Abnormal ECG When compared with ECG of 01-Jun-2024 15:22, Premature ventricular complexes are now Present ID interval has decreased Nonspecific T wave abnormality now evident in Inferior leads Confirmed by Russel Ruggiero ([id number]) on 06/09/2024 1:37:54 PM Referred By: [facility] Confirmed By: Russel Ruggiero
[2024-06-09] MEDS: lamoTRIgine 25 MG TAB PO SCH (20:32)
[2024-06-09] MEDS: PARoxetine HCL 20 MG TAB PO SCH (20:32)
[2024-06-09] MEDS: ROSUVASTATIN CALCIUM 20 MG TAB PO SCH (20:33)
[2024-06-10] MEDS: PANTOprazole 40 MG TAB PO SCH (06:04)
[2024-06-10] MEDS: LEVOTHYROXINE SODIUM 25 MCG TABLET PO SCH (06:04)
[2024-06-10 06:21] LABS: Basophils # (auto) 0.07 K/uL (0.00-0.20); Basophils % (auto) 1.3 %; Eosinophils # (auto) 0.26 K/uL (0.00-0.50); Eosinophils % (auto) 4.7 %; Hematocrit (blood only) 32.9 % (37.0-47.0); Hemoglobin 10.5 g/dl (12.0-16.0); Immature Granulocytes # (auto) 0.01 K/uL (0.01-0.20); Immature Granulocytes % (auto) 0.2 %; Lymphocytes % (auto) 45.1 %; Mean Corpuscular Hemoglobin 26.1 pg (25.0-34.0); Mean Corpuscular Hgb Conc 31.9 g/dL (32.0-36.0); Mean Corpuscular Volume 81.8 fL (80.0-100.0); Mean Platelet Volume 10.1 fL (9.4-12.4); Monocytes # (auto) 0.84 K/uL (0.11-0.59); Monocytes % (auto) 15.2 %; Neutrophils # (auto) 1.86 K/uL (1.40-6.50); Neutrophils % (auto) 33.5 %; Platelet Count 223 K/uL (130-400); RDW Coefficient of Variation 16.7 % (11.5-14.5); RDW Standard Deviation 49.7 fL (36.4-46.3); Red Blood Count 4.02 M/uL (4.20-5.40); White Blood Count 5.54 K/ul (4.8-10.8)
[2024-06-10 06:22] LABS: Calcium 9.2 mg/dl (8.6-10.3); Potassium 3.8 mmol/L (3.5-5.1)
[2024-06-10 06:28] LABS: BUN Creatinine Ratio 15.2 (10-20); Creatinine Clr Calc Pharmacy 59.1 ml/min; Est GFR (African American) 62.4 ml/min; Est GFR (Non-African American) 53.8 ml/min
[2024-06-10 07:58] VITALS: BP 139/83; RESP 20; TEMP 98.2; O2SAT 94
[2024-06-10 09:24] VITALS: PULSE 88
--- NOTE | 2024-06-10 16:53 | Discharge Summary ---
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 Multiple admissions for similar presentation in the past few years including two weeks ago. There has been suspicion for seizure disorder related to her old strokes in the past. EEGs were negative for epileptiform discharges January of 2023 and April 23 this year. Said to have been too sleepy on keppra in the past. Not currently on AED. Based on chart review at least some of the episodes have been associated with infection or dehydration and has been prone to acute encephalopathy. For this admission no infectious process or other acute illness identified. Episodes were not thought to be cardiogenic and ambulatory monitor recommended last admission. CT head, CTA head/neck, CXR, UA were negative on admission and labs unremarkable -consulted neurologist. not clearly seizures however the spells could be and we lack an alternative explanation reviewed recommendations by Dr. Culp - start trial of lamotrigine 25 mg p.o. twice daily, increase to 50 mg p.o. twice daily in a week, follow-up with neurology PA in 2 to 3 weeks eventual dose titration to at least 200 mg daily. potential outpatient 3-day ambulatory EEG monitoring - hold Aricept for now because of uncertain benefits and potential side effects including syncope - there were no events on cardiac telemetry. claims customer service representative evaluated recently and did not think the spells were cardiogenic. Ambulatory monitor is recommended recommend discontinuing hydroxyzine as this can induce mental status changes in the elderly, as can diphenhydramine (2) Anemia: Hemoglobin 10, mild anemia. Iron deficient - start qod ferrous sulfate B12 271 - clarify that she is still on oral supplement. folate normal B1 deficient in the past (04/2023) - continue oral supplement and recheck level - B1 level is pending (3) Hypothyroidism: Continue levothyroxine (4) Diabetes: continue metformin (5) HTN (hypertension): Currently stable Continue carvedilol (6) Dementia: Continue donepezil Plan History of strokes - continue plavix, rosuvastatin Depression - on paroxetine CKD 3 - Cr stable near 1 Admission HPI Per Admitting Provider Deanna is a pleasant 78-year-old female with PMH of dementia, CVA, DM, acute metabolic encephalopathy, depression, neuropathy, CHF, GERD, HLD cerebrovascular disease, and multiple admissions over the past year due to recurrent unresponsive episodes who presented to [facility] ED via EMS on 06/08/24 from her assisted living facility for another episode of unresponsiveness. She was noted to be mildly hypertensive on arrival at 167/101 but otherwise stable. Labs were significant for hemoglobin of 9.8 (down from 11 as of 06/03/2024) but were otherwise unremarkable. Chest x-ray, CT of the head and brain without contrast, and CTA of the head and neck were read as unremarkable. Prior to admission the patient was given 500 mL NSS. Patient was lying in bed no acute distress at time of exam with her daughter bedside, history is really obtained from the patient's daughter due to her baseline history of dementia. Daughter explains that the facility called her to explain that the patient had another sudden episode of unresponsiveness while in her room. Patient is remain reportedly looked over and noticed that she was not responding and would not wake calling her name or shaking her. EMS reported that the facility staff tried to break her with sternal rubs but she was not responding. By the time EMS arrived the patient was alert but combative reportedly tried to bite them. Patient had otherwise been in her normal state of health. Patient has no complaints of is alert and following commands. Please refer to Dr. Tyson's attestation for any changes to treatment plan Discharge Exam PHYSICAL EXAMINATION Last 24h vital signs reviewed, see documentation in flowsheet General: comfortable appearing, no distress, sitting in the chair by the window HEENT: Normocephalic, atraumatic, pupils round and equal, sclerae anicteric, no conjunctival injection, moist mucus membranes Lungs: Normal respiratory effort. Clear to auscultation bilaterally. No RRW Heart: Regular rate and rhythm, no murmurs. No JVD Abdomen: Soft, nontender, nondistended. Bowel sounds present. Bey catheter in place with clear yellow urine Extremities: Warm, dry, well-perfused. No extremity edema. Neuro: Alert and oriented x self and to general situation of hospital but not fully oriented to situation, forgetful/vague historian, face symmetric, moves 4 extremities well Psych: Normal affect and behavior Discharge Plan Discharge Items Patient Disposition: Personal Prison Reason For Visit: UNRESPONSIVE EPISODE Discharge Diagnosis: unresponsive episode, possible seizure disorder Activity: Resume your previous activity Non-emergency contact: Primary Care Provider and Neurologist Call non-emergency contact if: you have any medication questions, your symptoms worsen and you have a fever Follow-up/Referrals: John Culp MD [Physician] - Bonifacio Ibanez DO [Primary Care Provider] - 06/16/24 9:20 am ([facility] has changed, located at [address]) Diet: Carb Consistent or DM2 Addtl Attending Provider Instructions: No infection or other acute issue was found to account for unresponsive episode Neurologist Dr. Culp consulted Possible seizure disorder Trial of lamotrigine recommended - 25 mg po twice a day for 7 days then increase to 50 mg po twice a day. Monitor for sedation/side effects. Hold donepezil for now Recommend stopping hydroxyzine because this medication can cause mental status changes / delirium Schedule follow up with PA in neurology clinic in 2-3 weeks for further dose adjustment Iron deficiency - iron supplement every other day for 6 weeks follow up in primary care to monitor Recommend resuming B12 and thiamine supplement Iron, thiamine, B12 supplements are available over the counter It was a pleasure taking care of you in the hospital Karolina Carrasco MD Pending Studies at Discharge: Yes (thiamine (B1) level) Stand-Alone Forms: My [employer], Smoking Cessation Skilled Items Patient informed of condition?: Yes DNR: No Discharge Level of Care: Other Communicable Disease: No Discharge Prognosis: Stable Lines: None Urinary Catheter: No Medications and DC Order Prescriptions: New ferrous sulfate 325 mg (65 mg iron) Tablet,Delayed Release (Dr/Ec) 325 mg PO Q48H Qty: 20 0RF lamotrigine [Lamictal] 25 mg Tablet See Rx Instructions .ROUTE .COMPLEX Qty: 98 0RF Rx Instructions: take 25 mg po bid for seven days then increase to 50 mg bid and continue cyanocobalamin (vitamin B-12) 500 mcg Tablet 500 mcg PO QAM Qty: 30 0RF thiamine HCl (vitamin B1) 100 mg Tablet 100 mg PO QAM Qty: 30 0RF Continued carvedilol 3.125 mg tablet 3.125 mg PO BID Rx Instructions: must administer with a meal/food paroxetine HCl 20 mg tablet 20 mg PO HS rosuvastatin 20 mg tablet 20 mg PO HS clopidogrel 75 mg Tablet 75 mg PO QAM Qty: 30 0RF metformin 1,000 mg tablet 1,000 mg PO QAM cholecalciferol (vitamin D3) [Vitamin D3] 25 mcg (1,000 unit) Capsule 25 mcg PO QAM multivit with min-folic acid [Adult Multivitamin Gummies] 200 mcg Tablet,Chewable 1 tab PO QAM levothyroxine [Synthroid] 25 mcg tablet 25 mcg PO DAILYBB Rx Instructions: for underactive thyroid gland magnesium oxide 400 mg (241.3 mg magnesium) Tablet 400 mg PO BID Qty: 0 0RF loperamide 2 mg capsule 2 mg PO UD MDD 8mg/24hrs PRN (Reason: Diarrhea) Rx Instructions: 1 capsule after each additional loose stool omeprazole 40 mg capsule,delayed release(DR/EC) 40 mg PO DAILYBB insulin glargine [Lantus Solostar U-100 Insulin] 100 unit/mL (3 mL) insulin pen 10 unit SUBCUT HS Lubriderm Daily Moisture Lotion 1 applic TOPICAL BID diclofenac sodium 1 % gel 2 g topical QID PRN (Reason: Pain) furosemide [Lasix] 40 mg Tablet 80 mg PO QAM PRN (Reason: .EDEMA/WT GAIN) acetaminophen [Tylenol] 325 mg Tablet 650 mg PO Q4 PRN (Reason: Fever Or Pain) potassium chloride 20 mEq Tablet Extended Release 20 meq PO DAILY PRN (Reason: .When lasix is given) Held donepezil 5 mg tablet 5 mg PO HS Hold Instructions: Resume on 07/08/24. Hold until/if resumed by neurologist Discontinued hydroxyzine HCl 25 mg tablet 25 mg PO TID PRN (Reason: ITCHYNESS) Discharge Orders: Discharge Order (Routine); Ordered 06/10/24 Ordered By: Karolina Mace/Other Patient Handouts: ED Altered LOC, ED Seizure, Recurrent (Adult) Admission Data Admit Date/Time: 06/08/24 19:27 Attending Provider: Karolina Carrasco Admit Provider: Estela Tyson Primary Care Provider: Bonifacio Ibanez Other Providers: Estela Tyson; John Culp Other Interventions: Discharge Summary Assessment (RN) Last Done: 06/10/24 10:33 Hospital Stay Data Consultations 06/08/24 19:02 ED Decision to Admit Stat 06/08/24 20:51 Consult Neurology Routine Diagnostic Imagining Performed 06/08/24 17:15 CT angio head w con Stat CT angio neck with con Stat CT head/brain wo con Stat Pending Results Patient Have Any Pending Studies at Discharge: Yes (thiamine (B1) level) Discharge Instructions Given to Patient (Per Discharging Provider) No infection or other acute issue was found to account for unresponsive episode Neurologist Dr. Culp consulted Possible seizure disorder Trial of lamotrigine recommended - 25 mg po twice a day for 7 days then increase to 50 mg po twice a day. Monitor for sedation/side effects. Hold donepezil for now Recommend stopping hydroxyzine because this medication can cause mental status changes / delirium Schedule follow up with PA in neurology clinic in 2-3 weeks for further dose adjustment Iron deficiency - iron supplement every other day for 6 weeks follow up in primary care to monitor Recommend resuming B12 and thiamine supplement Iron, thiamine, B12 supplements are available over the counter It was a pleasure taking care of you in the hospital Karolina Carrasco MD Total Time Total Time Spent Total Time Spent (In Minutes): I personally spent: 35 minutes today on clinical care activities including: reviewing chart notes and vital signs discussion with inpatient care manager rn examining and counseling the patient writing orders, prescriptions and discharge instructions documentation Coding Level of Care Code 38348 INP/OBS DISCH >30 MIN Diagnoses Unresponsive episode R40.4 Anemia D64.9 Anemia type: unspecified type Hypothyroidism E03.9 Diabetes E11.9 HTN (hypertension) I10 Dementia F01.50 Dementia behavioral or psychological symptom: unspecified whether behavioral, psychotic, or mood disturbance or anxiety Dementia severity: unspecified severity Dementia type: vascular dementia
== END 2024-06-10 14:15 | disposition home or self-care (01) ==
LOC: ED 16:43 → 2N 16:43 → SUATTDRO 19:27 → 2N 20:14

== ENCOUNTER 2025-07-15 17:55 | Inpatient (IN) ==
[2025-07-15] MEDS: NITROGLYCERIN 2% OINTMENT 30GM TUBE EXT STA (18:30)
[2025-07-15] MEDS: NITROGLYCERIN 2% OINTMENT 30GM TUBE EXT ONE (18:31)
--- NOTE | 2025-07-15 18:44 | Emergency Department Note ---
Impression & Plan Acute respiratory distress, CHF (congestive heart failure), Hypoxia, Acute confusion, Elevated lactic acid level, Hypomagnesemia ED Provider Note NAME: ANTONIO BILL AGE: 79 SEX: F : 1945 ARRIVES VIA: Ambulance INFORMANT: [Patient][ems, nursing] ED PROVIDER(S): [Karri Holder MD] CHIEF COMPLAINT: Shortness of breath HISTORY OF PRESENT ILLNESS: The patient is an 79-year-old female who was thought to be altered from her baseline mental state today at her care center. They were concerned for UTI. The patient was sent by ambulance. Upon arrival, our nursing staff noticed hypoxia with a sat of 70%. The patient appeared short of breath. Her oxygenation improved on nasal cannula O2. The patient cannot really give much of a history given her dementia. PMHx/PSHx/Social Hx: See Below PHYSICAL EXAM: GENERAL: Patient is in mild respiratory distress. HEENT: No acute trauma, normocephalic atraumatic, mucous membranes moist, no nasal congestion. NECK: No stridor, no adenopathy, no meningismus, trachea is midline. LUNGS: Crackles with some scattered wheezes bilaterally. Increased respiratory rate. Mild respiratory distress. HEART: Tachycardic, regular rhythm, no obvious murmur although, heart tones are distant because of the lung sounds. ABDOMEN: Soft, nontender, no peritonitis. Obese EXTREMITIES: No cyanosis, full range of motion of all the joints without pain or difficulty. Moderate to significant bilateral pedal edema. NEUROLOGIC: Awake and alert, moves all extremities. SKIN: No jaundice, no diaphoresis. DIFFERENTIAL DIAGNOSIS: CHF, bronchitis or pneumonia, renal failure, RI, UTI, among others. EMERGENCY DEPARTMENT PROCEDURES: MEDICAL DECISION MAKING: There is no leukocytosis or concerning anemia. There is a normal platelet count. No coagulopathy. VBG does not show significant CO2 retention. There was a very subtle acidosis with a pH of 7.34. No renal failure. Magnesium is low at 1.6. Lactic acid level was initially quite high at 7, the repeat showed a trend downward to 2.2. The lactic acid elevation could be secondary infection although, hypoxia was thought the primary driver trainer of this higher value. There was no concerning liver enzyme elevation. Ammonia level was not elevated. ECG showed a sinus tachycardia, no ST elevation. Cardiac enzyme testing is slightly elevated, likely secondary to mismatch from her dyspnea although, cardiac injury is also a possibility. Chest x-ray shows heart failure, no focal pneumonia. BNP is elevated consistent with fluid overload. Urinalysis does not show infection. Respiratory BioFire was negative. The patient had presented hypoxic and in respiratory distress. She was aggressively managed. The patient was given a DuoNeb, nitroglycerin paste, IV Lasix. A Bey catheter was placed to monitor urine output. She was given IV magnesium. She received IV cefepime as empiric antibiotic coverage. With the above interventions, the patient has made significant improvement. She is much more comfortable and breathing easily. She is no longer in respiratory distress. She is diuresing well. The patient was likely confused from hypoxia. The hypoxia was from her heart failure/fluid overload. The patient is in need of a hospital stay and further diuresis. Certainly, further workup/monitoring is indicated. I spoke with the patient and her family. I spoke with case management. The on- call hospitalist was consulted. Prior/Outside records/notes reviewed: Today's EMS notes describing her presentation and transport to this hospital. ECG per my interpretation: Indication was shortness of breath. The ECG shows a sinus tachycardia with PVCs. The rate is 117. There is significant baseline artifact. There is a left bundle branch block. No concerning ST elevation. QTc is 552. Continuous Cardiac Monitoring per my interpretation: An order was placed for continuous cardiac monitoring. The monitor shows a rate of 119 with sinus tachycardia. Imaging/x-ray results per my interpretation: Chest x-ray shows CHF, no focal pneumonia. Chronic Medical/Social conditions affecting care: Advanced age, history of dementia. Care/Management discussed with: Case management, the on-call hospitalist. Level of care consideration(s): After review of the information above and other included data: --I believe the patient requires escalation of care to admission Critical Care Note: I have personally spent 53 minutes of critical care time in the direct management of this patient. This includes bedside care, interpretation of diagnostic studies, and testing, discussion with consultants, patient, and family members, and other required patient management activities. This 53 minutes is in excess of all separately billable procedures. DISPOSITION: Admission Past Med/Surg History Problem List (Updated 07/15/25 @ 23:17 by Karri Holder MD) Hypomagnesemia (Acute) Elevated lactic acid level (Acute) Acute confusion (Acute) Hypoxia (Acute) CHF (congestive heart failure) (Acute) Acute respiratory distress (Acute) Left knee pain H/O: stroke Episode of unresponsiveness (Acute) Anemia (Acute) AMS (altered mental status) (Acute) Hypothyroidism HTN (hypertension) Dementia (Acute) Diabetes Unresponsive episode Syncope Dehydration Encephalopathy Elevated lactic acid level (Acute) Acute UTI (Acute) Sepsis (Acute) UTI (urinary tract infection) (Acute) Recurrent UTI (urinary tract infection) (Chronic) Ascending aorta dilatation Discussion about advance care planning held with family member Palliative care by specialist Confusion Cerebrovascular disease (Acute) HLD (hyperlipidemia) GERD (gastroesophageal reflux disease) UTI (urinary tract infection), uncomplicated Generalized weakness Gait apraxia Stroke 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 Neuropathy Fatigue Hypomagnesemia (Acute) Infarction of kidney (Acute) Bladder spasms Depression Confusion and disorientation Seizure-like activity Hypotension Leg swelling AMS (altered mental status) (Acute) Acute hypotension (Acute) Elevated lactic acid level (Acute) SKY (acute kidney injury) Acute metabolic encephalopathy Morbid obesity Prolonged PTT Cerebrovascular disease Abnormal brain MRI Nonobstructive atherosclerosis of coronary artery LBBB (left bundle branch block) Thoracic aortic aneurysm Bilateral leg edema Medical History Seizure, late effect of stroke Strain of rotator cuff of right shoulder No pertinent family history Surgical History S/P colonoscopy S/P hysterectomy S/P appendectomy History of back surgery Status post right knee replacement No pertinent past surgical history Social History Smoking Status: Never smoker Second Hand Exposure: No; Do You Dip or Chew Tobacco: No; Hx Alcohol Use: No Hx Substance Use: No Preferred Language: Lithuanian Communication Ability: Effective Visual Impairment: No Limitations Hearing Ability: Normal [place] Required: No Beliefs That Will Affect Care: None marital status: / Current Living Situation: Personal Care Facility Current Living Situation Comment: At [facility] current occupational status: retired Feels Safe at Home: Yes Childhood Exposure to Second-Hand Smoke: No Diet: diabetic Dental Care, Regularly: No Physical Activity Frequency: Does not Exercise Seatbelt Use: always Sunscreen Use: No Assistive Devices: Walker Allergies Allergies Allergy/AdvReac Type Severity Reaction Status Date / Time aspirin Allergy Severe Hives Verified 01/25/25 13:40 NSAIDS (Non-Steroidal Allergy Intermediate Hives Verified 01/25/25 13:40 Anti-Inflamma Penicillins Allergy Intermediate Hives Verified 01/25/25 13:40 vancomycin Allergy Intermediate Redness of Verified 01/25/25 13:40 Skin fenofibrate Allergy Unknown ON PT MED Verified 01/25/25 13:40 LIST naproxen Allergy Unknown Unknown - Verified 01/25/25 13:40 On Med List from [facility] propoxyphene Allergy Unknown ON PT MED Verified 01/25/25 13:40 LIST Home Meds Home Medications Medication Instructions Recorded Confirmed carvedilol 3.125 mg tablet 3.125 mg PO BID 01/29/22 01/25/25 paroxetine HCl 20 mg tablet 20 mg PO HS 01/29/22 01/25/25 metformin 1,000 mg tablet 1,000 mg PO QAM 01/14/23 01/25/25 cholecalciferol (vitamin D3) 25 25 mcg PO QAM 03/17/23 01/25/25 mcg (1,000 unit) capsule (Vitamin D3) levothyroxine 25 mcg tablet 25 mcg PO DAILYBB 03/17/23 01/25/25 (Synthroid) multivitamin with minerals-folic 1 tab PO QAM 03/17/23 01/25/25 acid 200 mcg chewable tablet (Adult Multivitamin Gummies) diclofenac sodium 1 % topical gel 2 g topical QID PRN Pain 02/05/24 01/25/25 emollient combination no.92 1 applic topical BID Dry skin - 02/05/24 01/25/25 (Lubriderm Daily Moisture lotion) Legs insulin glargine 100 unit/mL (3 10 unit subcut HS 02/05/24 01/25/25 mL) subcutaneous pen (Lantus Solostar U-100 Insulin) loperamide 2 mg capsule 2 mg PO UD PRN Diarrhea 02/05/24 01/25/25 omeprazole 40 mg capsule,delayed 40 mg PO DAILYBB 02/05/24 01/25/25 release acetaminophen 325 mg tablet 650 mg PO Q4 PRN Fever Or Pain 06/01/24 01/25/25 (Tylenol) potassium chloride 20 mEq 20 meq PO DAILY PRN .When lasix is 06/01/24 01/25/25 tablet,extended release given hydroxyzine HCl 25 mg tablet 25 mg PO BID PRN 12/24/24 01/25/25 lamotrigine 25 mg tablet 75 mg PO BID 12/24/24 01/25/25 acetaminophen 650 mg 650 mg PO .Q4 PRN fever or pain 01/25/25 01/25/25 tablet,extended release cranberry 10,000 mg PO DAILY Chronic UTI 01/25/25 dextromethorphan-guaifenesin 20 10 ml PO Q6 PRN 01/25/25 01/25/25 mg-200 mg/5 mL oral elixir dextromethorphan-guaifenesin 30 2 tab PO Q12H PRN cough 01/25/25 01/25/25 mg-600 mg tablet extended [id number] hr (Mucinex DM) magnesium hydroxide 400 mg/5 mL 30 ml PO .q 3 days PRN constipation 01/25/25 01/25/25 oral suspension (Milk of Magnesia) Previous Rx's Medication Instructions Recorded clopidogrel 75 mg tablet 75 mg PO QAM #30 tabs 04/28/23 cyanocobalamin (vitamin B-12) 500 500 mcg PO QAM #30 tabs 06/10/24 mcg tablet ferrous sulfate 325 mg (65 mg 325 mg PO Q48H #20 tabs 06/10/24 iron) tablet,delayed release furosemide 40 mg tablet (Lasix) 40 mg PO .COMPLEX PRN .EDEMA/WT 06/16/24 GAIN #90 tabs diazepam 5 mg tablet (Valium) 5 mg PO .COMPLEX PRN anxiety #2 09/27/24 tabs Results & Data (ED) Vital Signs Vital Signs - 24 hr 07/15/25 18:16 07/15/25 18:17 07/15/25 18:20 Temperature 36.8 C Temperature Source Axillary Pulse Rate 115 H 119 H Pulse Rate from SpO2 Sensor Respiratory Rate 28 H Respiratory Effort / Characteristics SOB on Exertion Blood Pressure 168/124 H Blood Pressure Mean 138 Pulse Oximetry 94 77 L Oxygen Delivery Method Nasal Cannula Room Air Oxygen Flow Rate 8 Sepsis Recent Fever Within 48 Hours No Sepsis New/Unexplained Change in Mental Status Yes Sepsis Action Taken by Nursing Physician Notified Fraction of Inspired Oxygen - Titration 8 Pulse Oximetry Post Tiitration 84 L 07/15/25 18:21 07/15/25 18:27 07/15/25 18:30 Temperature Temperature Source Pulse Rate 112 H 109 H Pulse Rate from SpO2 Sensor 112 H 109 H Respiratory Rate 29 H 22 Respiratory Effort / Characteristics Blood Pressure Blood Pressure Mean Pulse Oximetry 95 94 98 Oxygen Delivery Method Nasal Cannula Oxygen Flow Rate 8 Sepsis Recent Fever Within 48 Hours Sepsis New/Unexplained Change in Mental Status Sepsis Action Taken by Nursing Fraction of Inspired Oxygen - Titration Pulse Oximetry Post Tiitration 07/15/25 18:34 07/15/25 18:34 07/15/25 18:34 Temperature Temperature Source Pulse Rate Pulse Rate from SpO2 Sensor Respiratory Rate Respiratory Effort / Characteristics Blood Pressure 167/119 H 167/119 H 167/119 H Blood Pressure Mean 130 130 130 Pulse Oximetry Oxygen Delivery Method Oxygen Flow Rate Sepsis Recent Fever Within 48 Hours Sepsis New/Unexplained Change in Mental Status Sepsis Action Taken by Nursing Fraction of Inspired Oxygen - Titration Pulse Oximetry Post Tiitration 07/15/25 18:45 07/15/25 18:45 07/15/25 19:05 Temperature Temperature Source Pulse Rate 104 H Pulse Rate from SpO2 Sensor 104 H Respiratory Rate 22 Respiratory Effort / Characteristics Blood Pressure 165/115 H 154/100 H Blood Pressure Mean 123 112 Pulse Oximetry 98 Oxygen Delivery Method Oxygen Flow Rate Sepsis Recent Fever Within 48 Hours Sepsis New/Unexplained Change in Mental Status Sepsis Action Taken by Nursing Fraction of Inspired Oxygen - Titration Pulse Oximetry Post Tiitration 07/15/25 19:15 07/15/25 19:15 07/15/25 19:15 Temperature Temperature Source Pulse Rate Pulse Rate from SpO2 Sensor Respiratory Rate Respiratory Effort / Characteristics Blood Pressure 163/119 H 163/119 H 163/119 H Blood Pressure Mean 142 142 142 Pulse Oximetry Oxygen Delivery Method Oxygen Flow Rate Sepsis Recent Fever Within 48 Hours Sepsis New/Unexplained Change in Mental Status Sepsis Action Taken by Nursing Fraction of Inspired Oxygen - Titration Pulse Oximetry Post Tiitration 07/15/25 19:24 07/15/25 19:30 07/15/25 19:31 Temperature Temperature Source Pulse Rate Pulse Rate from SpO2 Sensor 97 H 100 H Respiratory Rate 28 H 27 H Respiratory Effort / Characteristics Blood Pressure 158/98 H Blood Pressure Mean 109 Pulse Oximetry 97 98 Oxygen Delivery Method Oxygen Flow Rate Sepsis Recent Fever Within 48 Hours Sepsis New/Unexplained Change in Mental Status Sepsis Action Taken by Nursing Fraction of Inspired Oxygen - Titration Pulse Oximetry Post Tiitration 07/15/25 19:31 07/15/25 19:36 07/15/25 19:45 Temperature Temperature Source Pulse Rate Pulse Rate from SpO2 Sensor 98 H Respiratory Rate 24 Respiratory Effort / Characteristics Blood Pressure 158/98 H 174/96 H Blood Pressure Mean 109 114 Pulse Oximetry 98 Oxygen Delivery Method Oxygen Flow Rate Sepsis Recent Fever Within 48 Hours Sepsis New/Unexplained Change in Mental Status Sepsis Action Taken by Nursing Fraction of Inspired Oxygen - Titration Pulse Oximetry Post Tiitration 07/15/25 19:51 07/15/25 20:06 07/15/25 20:12 Temperature Temperature Source Pulse Rate 101 H 95 H Pulse Rate from SpO2 Sensor 99 H 101 H 95 H Respiratory Rate 31 H 29 H 24 Respiratory Effort / Characteristics Blood Pressure Blood Pressure Mean Pulse Oximetry 97 97 96 Oxygen Delivery Method Oxygen Flow Rate 8 6 Sepsis Recent Fever Within 48 Hours Sepsis New/Unexplained Change in Mental Status Sepsis Action Taken by Nursing Fraction of Inspired Oxygen - Titration Pulse Oximetry Post Tiitration 07/15/25 20:24 07/15/25 21:15 07/15/25 21:16 Temperature Temperature Source Pulse Rate 95 H 93 H Pulse Rate from SpO2 Sensor 94 H 94 H Respiratory Rate 20 21 Respiratory Effort / Characteristics Blood Pressure 140/93 Blood Pressure Mean 126 Pulse Oximetry 96 95 Oxygen Delivery Method Nasal Cannula Oxygen Flow Rate 6 Sepsis Recent Fever Within 48 Hours Sepsis New/Unexplained Change in Mental Status Sepsis Action Taken by Nursing Fraction of Inspired Oxygen - Titration Pulse Oximetry Post Tiitration 07/15/25 21:30 07/15/25 21:42 07/15/25 21:51 Temperature Temperature Source Pulse Rate 92 H 92 H 92 H Pulse Rate from SpO2 Sensor 93 H 92 H 94 H Respiratory Rate 22 20 22 Respiratory Effort / Characteristics Blood Pressure Blood Pressure Mean Pulse Oximetry 94 94 94 Oxygen Delivery Method Nasal Cannula Oxygen Flow Rate 4 4 Sepsis Recent Fever Within 48 Hours Sepsis New/Unexplained Change in Mental Status Sepsis Action Taken by Nursing Fraction of Inspired Oxygen - Titration Pulse Oximetry Post Tiitration 07/15/25 21:58 07/15/25 22:09 07/15/25 22:15 Temperature Temperature Source Pulse Rate 92 H 92 H 94 H Pulse Rate from SpO2 Sensor 94 H 94 H Respiratory Rate 21 21 Respiratory Effort / Characteristics Blood Pressure Blood Pressure Mean Pulse Oximetry 94 95 Oxygen Delivery Method Oxygen Flow Rate 4 Sepsis Recent Fever Within 48 Hours Sepsis New/Unexplained Change in Mental Status Sepsis Action Taken by Nursing Fraction of Inspired Oxygen - Titration Pulse Oximetry Post Tiitration 07/15/25 22:19 07/15/25 22:27 07/15/25 22:30 Temperature Temperature Source Pulse Rate 93 H 94 H Pulse Rate from SpO2 Sensor 97 H 94 H Respiratory Rate 23 19 Respiratory Effort / Characteristics Blood Pressure 165/99 H Blood Pressure Mean 111 Pulse Oximetry 95 95 Oxygen Delivery Method Nasal Cannula Oxygen Flow Rate 4 4 Sepsis Recent Fever Within 48 Hours Sepsis New/Unexplained Change in Mental Status Sepsis Action Taken by Nursing Fraction of Inspired Oxygen - Titration Pulse Oximetry Post Tiitration Home Medications Current Medication List: was personally reviewed by me Laboratory Data Attestation: I reviewed the patient's lab results. 07/15/25 18:19 07/15/25 18:19 Lab Results 07/15/25 07/15/25 07/15/25 Range/Units 18:19 19:56 20:28 WBC 9.34 (4.8-10.8) K/ul RBC 4.86 (4.20-5.40) M/uL Hgb 15.4 (12.0-16.0) g/dl Hct 47.7 H (37.0-47.0) % MCV 98.1 (80.0-100.0) fL MCH 31.7 (25.0-34.0) pg MCHC 32.3 (32.0-36.0) g/dL RDW Std Deviation 45.3 (36.4-46.3) fL RDW Coeff of Sam 12.6 (11.5-14.5) % Plt Count 229 (130-400) K/uL MPV 10.2 (9.4-12.4) fL Immature Gran % (Auto) 0.3 % Neut % (Auto) 45.6 % Lymph % (Auto) 40.3 % [place] % (Auto) 8.9 % Eos % (Auto) 3.9 % Baso % (Auto) 1.0 % Neut # (Auto) 4.27 (1.40-6.50) K/uL Lymph # (Auto) 3.76 H (1.20-3.40) K/uL [place] # (Auto) 0.83 H (0.11-0.59) K/uL Eos # (Auto) 0.36 (0.00-0.50) K/uL Baso # (Auto) 0.09 (0.00-0.20) K/uL Immature Gran # (Auto) 0.03 (0.01-0.20) K/uL PT 10.7 (9.0-12.0) Seconds INR 1.0 (0.9-1.1) APTT 25 (21-31) Seconds PTT Ratio 0.9 VBG pH 7.34 L (7.36-7.41) VBG pCO2 52 H (38-50) mmHg VBG pO2 36 mmHg VBG HCO3 28 mmol/L VBG O2 Saturation < 60.0 % VBG Base Excess 1.4 mEq/L Sodium 139 (136-145) mmol/L Potassium 4.0 (3.5-5.1) mmol/L Chloride 103 (98-107) mmol/L Carbon Dioxide 22 (21-32) mmol/L Anion Gap 14 H (3-11) BUN 10 (6-23) mg/dl Creatinine 0.93 (0.6-1.2) mg/dl Est Cr Clr Drug Dosing 66.6 ml/min eGFR 61.75 BUN/Creatinine Ratio 10.8 (10-20) Glucose 213 H (70-99(Fasting)) mg/dl Lactate 7.0 H* 2.2 H* (0.4-2.0) mmol/L Calcium 9.5 (8.6-10.3) mg/dl Magnesium 1.6 L (1.7-2.4) mg/dl Total Bilirubin 0.8 (0.2-1.0) mg/dl AST 18 (13-39) U/L ALT 14 (7-52) U/L Alkaline Phosphatase 57 (34-104) U/L Ammonia 30.0 (18-72) umol/L Troponin I High Sens 24.8 H 30.8 H (0-14) pg/ml B-Natriuretic Peptide 827 H (0-100) pg/ml Total Protein 7.3 (6.0-8.3) gm/dl Albumin 4.2 (3.4-5.0) gm/dl Globulin 3.1 (2.5-4.0) gm/dl Albumin/Globulin Ratio 1.4 (0.9-2) Urine Color Urine Appearance (Clear) Urine pH (4.5-7.5) Ur Specific [place] (1.000-1.030) Urine Protein (Negative) Urine Glucose (UA) (Negative) Urine Ketones (Negative) Urine Blood (Negative) Urine Nitrite (Negative) Urine Bilirubin (Negative) Urine Urobilinogen (Negative) Ur Leukocyte Esterase (Negative) Urine Comment Adenovirus (PCR) (NotDetected) B. pertussis DNA (PCR) (NotDetected) B.parapertussis DNA PCR (NotDetected) C. pneumoniae DNA (PCR) (NotDetected) Coronavirus OC43 (PCR) (NotDetected) Coronavirus HKU1 (PCR) (NotDetected) Coronavirus 229E (PCR) (NotDetected) SARS-CoV-2 (PCR) (NotDetected) Coronavirus NL63 (PCR) (NotDetected) Human Metapneumovir PCR (NotDetected) Influenza Type A (PCR) (NotDetected) Influenza Type B (PCR) (NotDetected) M. pneumoniae (PCR) (NotDetected) Parainfluenza 1 (PCR) (NotDetected) Parainfluenza 2 (PCR) (NotDetected) Parainfluenza 3 (PCR) (NotDetected) Parainfluenza 4 (PCR) (NotDetected) RSV (PCR) (NotDetected) Entero/Rhino (PCR) (NotDetected) 07/15/25 Range/Units Unknown WBC (4.8-10.8) K/ul RBC (4.20-5.40) M/uL Hgb (12.0-16.0) g/dl Hct (37.0-47.0) % MCV (80.0-100.0) fL MCH (25.0-34.0) pg MCHC (32.0-36.0) g/dL RDW Std Deviation (36.4-46.3) fL RDW Coeff of Sam (11.5-14.5) % Plt Count (130-400) K/uL MPV (9.4-12.4) fL Immature Gran % (Auto) % Neut % (Auto) % Lymph % (Auto) % [place] % (Auto) % Eos % (Auto) % Baso % (Auto) % Neut # (Auto) (1.40-6.50) K/uL Lymph # (Auto) (1.20-3.40) K/uL [place] # (Auto) (0.11-0.59) K/uL Eos # (Auto) (0.00-0.50) K/uL Baso # (Auto) (0.00-0.20) K/uL Immature Gran # (Auto) (0.01-0.20) K/uL PT (9.0-12.0) Seconds INR (0.9-1.1) APTT (21-31) Seconds PTT Ratio VBG pH (7.36-7.41) VBG pCO2 (38-50) mmHg VBG pO2 mmHg VBG HCO3 mmol/L VBG O2 Saturation % VBG Base Excess mEq/L Sodium (136-145) mmol/L Potassium (3.5-5.1) mmol/L Chloride (98-107) mmol/L Carbon Dioxide (21-32) mmol/L Anion Gap (3-11) BUN (6-23) mg/dl Creatinine (0.6-1.2) mg/dl Est Cr Clr Drug Dosing ml/min eGFR BUN/Creatinine Ratio (10-20) Glucose (70-99(Fasting)) mg/dl Lactate (0.4-2.0) mmol/L Calcium (8.6-10.3) mg/dl Magnesium (1.7-2.4) mg/dl Total Bilirubin (0.2-1.0) mg/dl AST (13-39) U/L ALT (7-52) U/L Alkaline Phosphatase (34-104) U/L Ammonia (18-72) umol/L Troponin I High Sens (0-14) pg/ml B-Natriuretic Peptide (0-100) pg/ml Total Protein (6.0-8.3) gm/dl Albumin (3.4-5.0) gm/dl Globulin (2.5-4.0) gm/dl Albumin/Globulin Ratio (0.9-2) Urine Color Yellow Urine Appearance Clear (Clear) Urine pH 7.5 (4.5-7.5) Ur Specific [place] 1.005 (1.000-1.030) Urine Protein Negative (Negative) Urine Glucose (UA) Trace H (Negative) Urine Ketones Negative (Negative) Urine Blood Negative (Negative) Urine Nitrite Negative (Negative) Urine Bilirubin Negative (Negative) Urine Urobilinogen Negative (Negative) Ur Leukocyte Esterase Negative (Negative) Urine Comment Adenovirus (PCR) Not Detected (NotDetected) B. pertussis DNA (PCR) Not Detected (NotDetected) B.parapertussis DNA PCR Not Detected (NotDetected) C. pneumoniae DNA (PCR) Not Detected (NotDetected) Coronavirus OC43 (PCR) Not Detected (NotDetected) Coronavirus HKU1 (PCR) Not Detected (NotDetected) Coronavirus 229E (PCR) Not Detected (NotDetected) SARS-CoV-2 (PCR) Not Detected (NotDetected) Coronavirus NL63 (PCR) Not Detected (NotDetected) Human Metapneumovir PCR Not Detected (NotDetected) Influenza Type A (PCR) Not Detected (NotDetected) Influenza Type B (PCR) Not Detected (NotDetected) M. pneumoniae (PCR) Not Detected (NotDetected) Parainfluenza 1 (PCR) Not Detected (NotDetected) Parainfluenza 2 (PCR) Not Detected (NotDetected) Parainfluenza 3 (PCR) Not Detected (NotDetected) Parainfluenza 4 (PCR) Not Detected (NotDetected) RSV (PCR) Not Detected (NotDetected) Entero/Rhino (PCR) Not Detected (NotDetected) Administered Medications Magnesium Sulfate/Dextrose (Magnesium Sulfate / D5w) 1 gm in 100 mls @ 50 mls/hr IV ONE ONE Stop: 07/15/25 23:35 Last Admin: 07/15/25 22:17 Dose: 50 mls/hr Documented By: BS Discontinued Medications Acetaminophen (Acetaminophen 325 Mg Tab) 650 mg PO NOW STA Stop: 07/15/25 22:30 Last Admin: 07/15/25 22:36 Dose: 650 mg Documented By: BS Albuterol (Albut/Ipratrop 3mg/0.5mg Neb 3 Ml Vial) 3 ml INH NOW STA Stop: 07/15/25 18:28 Last Admin: 07/15/25 18:48 Dose: 3 ml Documented By: BS Furosemide (Furosemide 40 Mg/4 Ml Vial) 80 mg IV ONE ONE Stop: 07/15/25 18:33 Last Admin: 07/15/25 18:48 Dose: 80 mg Documented By: BS Cefepime HCl (Maxipime 2000mg) 2,000 mg in 20 mls @ 5 mls/min IV NOW STA; Protocol Stop: 07/15/25 18:48 Last Admin: 07/15/25 20:02 Dose: 5 mls/min Documented By: BS Magnesium Sulfate/Dextrose (Magnesium Sulfate / D5w) 1 gm in 100 mls @ 100 mls/hr IV NOW STA Stop: 07/15/25 20:26 Last Infusion: 07/15/25 21:15 Dose: Infused Documented By: Admin: 07/15/25 20:02 Dose: 100 mls/hr Documented By: BS Nitroglycerin (Nitroglycerin 2% Ointment 30gm Tube) 2 inch EXT NOW STA Stop: 07/15/25 18:28 Last Admin: 07/15/25 18:30 Dose: 2 inch Documented By: ROSETTE Nitroglycerin (Nitroglycerin 2% Ointment 30gm Tube) Confirm Administered Dose 36 inch EXT .STK-MED ONE Stop: 07/15/25 18:29 Last Admin: 07/15/25 18:31 Dose: Not Given Documented By: ML Potassium Chloride (Potassium Chloride Crtab 20 Meq Tabcr) 20 meq PO NOW STA Stop: 07/15/25 21:37 Last Admin: 07/15/25 22:17 Dose: 20 meq Documented By: JULIENNE Imaging Data Radiologist's Impression: Chest X-Ray 07/15/25 18:27 EXAM: Portable AP chest radiograph TECHNIQUE: AP portable radiograph of the chest was obtained. INDICATION: Shortness of breath Comparison: Chest radiograph December 03, 2024 FINDINGS: LINES and TUBES: None CARDIOVASCULAR: Cardiac silhouette is stable enlarged in size. Atherosclerosis of the thoracic aorta. LUNGS/PLEURA: Interval increase in perihilar densities likely reflecting worsening pulmonary edema. Pneumonia is not excluded. No focal consolidation identified. Small pleural fluids may be suggested. No discernible pneumothorax. OSSEOUS/OTHER: No displaced acute osseous process identified. IMPRESSION: Interval increase in perihilar densities likely reflecting worsening pulmonary edema. Pneumonia is not excluded. Electronically signed by Paramjit Altamirano 07-15-2025 7:07 PM Discharge Plan Visit Data Chief Complaint: Shortness of Breath/Dyspnea Stated Complaint: CONFUSION ED Provider: Karri Holder Discharge Problem: Acute respiratory distress, CHF (congestive heart failure), Hypoxia, Acute confusion, Elevated lactic acid level, Hypomagnesemia Patient Disposition: Admitted As Inpatient Condition: Serious Discharge Instructions Interventions: ED Discharge Assessment Last Done: 07/15/25 23:08 Forms Stand Alone Forms: [facility] Prescriptions Prescriptions: No Action diazepam [Valium] 5 mg tablet 5 mg PO .COMPLEX PRN (Reason: anxiety) Qty: 2 0RF Rx Instructions: 5 mg PO 1 hour prior to MRI, may repeat at time of MRI if needed PRN; carvedilol 3.125 mg tablet 3.125 mg PO BID Rx Instructions: must administer with a meal/food paroxetine HCl 20 mg tablet 20 mg PO HS furosemide [Lasix] 40 mg tablet 40 mg PO .COMPLEX PRN (Reason: .EDEMA/WT GAIN) Qty: 90 3RF Rx Instructions: 40 mg orally Daily, take 80 mg as needed for 2 pound weight gain over 24 hours, 5 pound weight gain over 72 hours. Notify PCP if consistent weight gain over 5 days. lamotrigine 25 mg tablet 75 mg PO BID hydroxyzine HCl 25 mg tablet 25 mg PO BID PRN cranberry 10,000 mg tablet 10,000 mg PO DAILY acetaminophen 650 mg tablet extended release 650 mg PO .Q4 PRN (Reason: fever or pain) magnesium hydroxide [Milk of Magnesia] 400 mg/5 mL suspension 30 ml PO .q 3 days PRN (Reason: constipation) Mucinex DM 30-600 mg tablet extended release 12 hr 2 tab PO Q12H PRN (Reason: cough) dextromethorphan-guaifenesin 20-200 mg/5 mL elixir 10 ml PO Q6 PRN clopidogrel 75 mg Tablet 75 mg PO QAM Qty: 30 0RF metformin 1,000 mg tablet 1,000 mg PO QAM cholecalciferol (vitamin D3) [Vitamin D3] 25 mcg (1,000 unit) Capsule 25 mcg PO QAM multivit with min-folic acid [Adult Multivitamin Gummies] 200 mcg Tablet,Chewable 1 tab PO QAM levothyroxine [Synthroid] 25 mcg tablet 25 mcg PO DAILYBB Rx Instructions: for underactive thyroid gland loperamide 2 mg capsule 2 mg PO UD MDD 8mg/24hrs PRN (Reason: Diarrhea) Rx Instructions: 1 capsule after each additional loose stool omeprazole 40 mg capsule,delayed release(DR/EC) 40 mg PO DAILYBB insulin glargine [Lantus Solostar U-100 Insulin] 100 unit/mL (3 mL) insulin pen 10 unit SUBCUT HS Lubriderm Daily Moisture Lotion 1 applic TOPICAL BID diclofenac sodium 1 % gel 2 g topical QID PRN (Reason: Pain) acetaminophen [Tylenol] 325 mg Tablet 650 mg PO Q4 PRN (Reason: Fever Or Pain) potassium chloride 20 mEq Tablet Extended Release 20 meq PO DAILY PRN (Reason: .When lasix is given) ferrous sulfate 325 mg (65 mg iron) Tablet,Delayed Release (Dr/Ec) 325 mg PO Q48H Qty: 20 0RF cyanocobalamin (vitamin B-12) 500 mcg Tablet 500 mcg PO QAM Qty: 30 0RF Referrals Referrals: Bonifacio Ibanez DO [Primary Care Provider] - Discharge Problem: CHF (congestive heart failure) Qualifiers: Heart failure type: unspecified Heart failure chronicity: unspecified Qualified Code(s): I50.9 - Heart failure, unspecified
[2025-07-15] MEDS: FUROSEMIDE 40 MG/4 ML VIAL IV ONE (18:48)
[2025-07-15] MEDS: ALBUT/IPRATROP 3MG/0.5MG NEB 3 ML VIAL INH STA (18:48)
[2025-07-15 18:49] LABS: Hematocrit (blood only) 47.7 % (37.0-47.0); Hemoglobin 15.4 g/dl (12.0-16.0); Immature Granulocytes # (auto) 0.03 K/uL (0.01-0.20); Immature Granulocytes % (auto) 0.3 %; Mean Corpuscular Hemoglobin 31.7 pg (25.0-34.0); Mean Corpuscular Volume 98.1 fL (80.0-100.0); Platelet Count 229 K/uL (130-400); RDW Standard Deviation 45.3 fL (36.4-46.3); Red Blood Count 4.86 M/uL (4.20-5.40); White Blood Count 9.34 K/ul (4.8-10.8)
[2025-07-15 19:00] LABS: Alanine Aminotransferase 14.0 U/L (7-52); Albumin Globulin Ratio 1.4 (0.9-2); Albumin Level 4.2 gm/dl (3.4-5.0); Alkaline Phosphatase 57.0 U/L (34-104); Anion Gap 14.0 (3-11); Bilirubin,Total 0.8 mg/dl (0.2-1.0); Blood Urea Nitrogen 10.0 mg/dl (6-23); Calcium 9.5 mg/dl (8.6-10.3); Carbon Dioxide 22.0 mmol/L (21-32); Chloride 103.0 mmol/L (98-107); Creatinine Clr Calc Pharmacy 66.6 ml/min; Globulin 3.1 gm/dl (2.5-4.0); Glucose 213.0 mg/dl (70-99(Fasting)); Magnesium 1.6 mg/dl (1.7-2.4); Potassium 4.0 mmol/L (3.5-5.1); Sodium 139.0 mmol/L (136-145); Total Protein 7.3 gm/dl (6.0-8.3)
--- NOTE | 2025-07-15 19:07 | XRay Report ---
EXAM: Portable AP chest radiograph TECHNIQUE: AP portable radiograph of the chest was obtained. INDICATION: Shortness of breath Comparison: Chest radiograph December 03, 2024 FINDINGS: LINES and TUBES: None CARDIOVASCULAR: Cardiac silhouette is stable enlarged in size. Atherosclerosis of the thoracic aorta. LUNGS/PLEURA: Interval increase in perihilar densities likely reflecting worsening pulmonary edema. Pneumonia is not excluded. No focal consolidation identified. Small pleural fluids may be suggested. No discernible pneumothorax. OSSEOUS/OTHER: No displaced acute osseous process identified. IMPRESSION: Interval increase in perihilar densities likely reflecting worsening pulmonary edema. Pneumonia is not excluded. Electronically signed by Paramjit Altamirano 07-15-2025 7:07 PM
[2025-07-15 19:40] LABS: INR 1.0 (0.9-1.1); Partial Thromboplastin Time 25 Seconds (21-31); Prothrombin Time 10.7 Seconds (9.0-12.0)
[2025-07-15 19:59] LABS: Chlamydia pneumoniae PCR Not Detected (NotDetected); Coronavirus 229E PCR Not Detected (NotDetected); Coronavirus CoV-2 (COVID19)PCR Not Detected (NotDetected); Coronavirus HKU1 PCR Not Detected (NotDetected); Coronavirus NL63 PCR Not Detected (NotDetected); Coronavirus OC43PCR Not Detected (NotDetected); Human Metapneumovirus PCR Not Detected (NotDetected); Parainfluenza Virus 1 PCR Not Detected (NotDetected); Parainfluenza Virus 2 PCR Not Detected (NotDetected); Parainfluenza Virus 3 PCR Not Detected (NotDetected); Parainfluenza Virus 4 PCR Not Detected (NotDetected); Respiratory Syncytial VirusPCR Not Detected (NotDetected); Rhinovirus/Enterovirus PCR Not Detected (NotDetected)
[2025-07-15] MEDS: MAGNESIUM SULFATE / D5W 1 GM/100 ML BAG IV STA (20:02)
[2025-07-15] MEDS: CEFEPIME 2000MG 2,000 MG/20 ML SYR IV STA (20:02)
[2025-07-15 20:07] LABS: Base Excess VBG 1.4 mEq/L; HCO3 VBG 28 mmol/L; Oxygen Saturation VBG < 60.0 %; PCO2 VBG 52 mmHg (38-50); PO2 VBG 36 mmHg; pH VBG 7.34 (7.36-7.41)
[2025-07-15 20:57] LABS: Appearance Urine Clear (Clear); Glucose Urine UA Trace (Negative)
--- NOTE | 2025-07-15 21:54 | History & Physical Report ---
Date of Service July 15, 2025 Assessment & Plan (1) Acute respiratory failure with hypoxia: (2) Multifocal pneumonia: (3) CHF exacerbation: (4) Elevated lactic acid level: Plan The patient is an 79-year-old female with a past medical history including hypothyroidism, hypertension, dementia, diabetes mellitus, syncope, encephalopathy, recurrent urinary tract infections, cerebrovascular disease, hyperlipidemia, ischemic cerebral stroke, neuropathy, depression, left bundle branch block, thoracic aortic aneurysm, and bilateral extremity edema. The patient brought to the emergency department via EMS, referred from her [facility] in [place], due to alteration of her baseline mental state, with concern regarding a possible UTI. Upon arrival to the emergency department, patient was noted to be hypoxic with an oxygen saturation of 70% on room air and appeared to be short of breath. She was titrated to 4 L l nasal cannula oxygen, with improvement of pulse ox to 94%. Chest x-ray performed revealed a combination of CHF and pneumonia. From the ED the patient received Nitropaste 2 inches to chest anterior chest wall, a Duoneb treatment, Lasix 80 mg IV, and cefepime 2 g IV, and magnesium 1 g IV. The patient is somewhat confused at baseline due to underlying dementia, is not able to contribute significantly to her review of systems or history of present illness. Significant laboratories: Lactic acid 7.0, magnesium 1.6, troponin 24.8, BNP 827 and glucose 213. [facility] for further evaluation and treatment. Acute respiratory failure with hypoxia/multifocal pneumonia/CHF exacerbation- Patient was found to be 70% on room air, and improved to 94% with titration of oxygen to 4 L nasal cannula. Multifocal pneumonia- Patient was given cefepime 2 g IV in ED and a DuoNeb Continue cefepime 2 g IV every 12 hours DuoNebs every 2 hours as needed MRSA swab was negative Respiratory BioFire testing was negative Treat accompanying CHF CHF exacerbation/elevated troponin/hypertension/left bundle branch block- The patient will be admitted to telemetry for serial cardiac enzymes, serial EKG's, cardiac rhythm monitoring and a 2-D echocardiogram with Dopplers. Patient was given Lasix 80 mg IV from the ED, with a very brisk response Continue Bey catheter Patient did later develop blood pressure into the low 100s. Will hold on any further Lasix. Continue Plavix Continue carvedilol with hold parameters Diabetes mellitus- Patient is on glargine 18 units subcu at bedtime, and will reduce to 10 units daily at bedtime Hold metformin Placed on Accu-Cheks with NovoLog SSI Glucose on admission was 213 Lactic acidosis- Lactate on admission 7.0, with follow-up 2.2 Repeat per protocol Dementia/confusion/depression/history of seizure-like activity- Continue lamotrigine, paroxetine GERD- Change omeprazole to pantoprazole per formulary interchange Hypothyroidism- Continue levothyroxine History of Present Illness Chief Complaint: The patient brought to the emergency department via EMS, referred from her personal care center in [place], due to alteration of her baseline mental state, with concern regarding a possible UTI. Upon arrival to the emergency department, patient was noted to be hypoxic with an oxygen saturation of 70% on room air and appeared to be short of breath. She was titrated to 4 L l nasal cannula oxygen, with improvement of pulse ox to 94%. Chest x-ray performed revealed a combination of CHF and pneumonia. From the ED the patient received Nitropaste 2 inches to chest anterior chest wall, a Duoneb treatment, Lasix 80 mg IV, and cefepime 2 g IV, and magnesium 1 g IV. Primary Care Provider: Bonifacio Ibanez DO The patient is an 79-year-old female with a past medical history including hypothyroidism, hypertension, dementia, diabetes mellitus, syncope, encephalopathy, recurrent urinary tract infections, cerebrovascular disease, hyperlipidemia, ischemic cerebral stroke, neuropathy, depression, left bundle branch block, thoracic aortic aneurysm, and bilateral extremity edema. The patient brought to the emergency department via EMS, referred from her personal care center in [place], due to alteration of her baseline mental state, with concern regarding a possible UTI. Upon arrival to the emergency department, patient was noted to be hypoxic with an oxygen saturation of 70% on room air and appeared to be short of breath. She was titrated to 4 L l nasal cannula oxygen, with improvement of pulse ox to 94%. Chest x-ray performed revealed a combination of CHF and pneumonia. From the ED the patient received Nitropaste 2 inches to chest anterior chest wall, a Duoneb treatment, Lasix 80 mg IV, and cef epime 2 g IV, and magnesium 1 g IV. The patient is somewhat confused at baseline due to underlying dementia, is not able to contribute significantly to her review of systems or history of present illness. Allergies Allergy/AdvReac Type Severity Reaction Status Date / Time aspirin Allergy Severe Hives Verified 01/25/25 13:40 NSAIDS (Non-Steroidal Allergy Intermediate Hives Verified 01/25/25 13:40 Anti-Inflamma Penicillins Allergy Intermediate Hives Verified 01/25/25 13:40 vancomycin Allergy Intermediate Redness of Verified 01/25/25 13:40 Skin fenofibrate Allergy Unknown ON PT MED Verified 01/25/25 13:40 LIST naproxen Allergy Unknown Unknown - Verified 01/25/25 13:40 On Med List from [facility] propoxyphene Allergy Unknown ON PT MED Verified 01/25/25 13:40 LIST Home Medications Medication Instructions Recorded Confirmed Type carvedilol 3.125 mg tablet 3.125 mg PO BID 01/29/22 01/25/25 History paroxetine HCl 20 mg tablet 20 mg PO HS 01/29/22 01/25/25 History metformin 1,000 mg tablet 1,000 mg PO QAM 01/14/23 01/25/25 History cholecalciferol (vitamin D3) 25 25 mcg PO QAM 03/17/23 01/25/25 History mcg (1,000 unit) capsule (Vitamin D3) levothyroxine 25 mcg tablet 25 mcg PO DAILYBB 03/17/23 01/25/25 History (Synthroid) multivitamin with minerals-folic 1 tab PO QAM 03/17/23 01/25/25 History acid 200 mcg chewable tablet (Adult Multivitamin Gummies) clopidogrel 75 mg tablet 75 mg PO QAM #30 tabs 04/28/23 01/25/25 Rx diclofenac sodium 1 % topical gel 2 g topical QID PRN Pain 02/05/24 01/25/25 History emollient combination no.92 1 applic topical BID Dry skin - 02/05/24 01/25/25 History (Lubriderm Daily Moisture lotion) Legs insulin glargine 100 unit/mL (3 10 unit subcut HS 02/05/24 01/25/25 History mL) subcutaneous pen (Lantus Solostar U-100 Insulin) loperamide 2 mg capsule 2 mg PO UD PRN Diarrhea 02/05/24 01/25/25 History omeprazole 40 mg capsule,delayed 40 mg PO DAILYBB 02/05/24 01/25/25 History release acetaminophen 325 mg tablet 650 mg PO Q4 PRN Fever Or Pain 06/01/24 01/25/25 History (Tylenol) potassium chloride 20 mEq 20 meq PO DAILY PRN .When lasix is 06/01/24 01/25/25 History tablet,extended release given cyanocobalamin (vitamin B-12) 500 500 mcg PO QAM #30 tabs 06/10/24 01/25/25 Rx mcg tablet ferrous sulfate 325 mg (65 mg 325 mg PO Q48H #20 tabs 06/10/24 01/25/25 Rx iron) tablet,delayed release furosemide 40 mg tablet (Lasix) 40 mg PO .COMPLEX PRN .EDEMA/WT 06/16/24 01/25/25 Rx GAIN #90 tabs diazepam 5 mg tablet (Valium) 5 mg PO .COMPLEX PRN anxiety #2 09/27/24 01/25/25 Rx tabs hydroxyzine HCl 25 mg tablet 25 mg PO BID PRN 12/24/24 01/25/25 History lamotrigine 25 mg tablet 75 mg PO BID 12/24/24 01/25/25 History acetaminophen 650 mg 650 mg PO .Q4 PRN fever or pain 01/25/25 01/25/25 History tablet,extended release cranberry 10,000 mg PO DAILY Chronic UTI 01/25/25 History dextromethorphan-guaifenesin 20 10 ml PO Q6 PRN 01/25/25 01/25/25 History mg-200 mg/5 mL oral elixir dextromethorphan-guaifenesin 30 2 tab PO Q12H PRN cough 01/25/25 01/25/25 History mg-600 mg tablet extended [id number] hr (Mucinex DM) magnesium hydroxide 400 mg/5 mL 30 ml PO .q 3 days PRN constipation 01/25/25 01/25/25 History oral suspension (Milk of Magnesia) Past Med/Surg History Problem List (Updated 07/16/25 @ 03:58 by Jon Eagle MD) CHF exacerbation Multifocal pneumonia Acute respiratory failure with hypoxia Hypomagnesemia (Acute) Elevated lactic acid level (Acute) Acute confusion (Acute) Hypoxia (Acute) CHF (congestive heart failure) (Acute) Acute respiratory distress (Acute) Left knee pain H/O: stroke Episode of unresponsiveness (Acute) Anemia (Acute) AMS (altered mental status) (Acute) Hypothyroidism HTN (hypertension) Dementia (Acute) Diabetes Unresponsive episode Syncope Dehydration Encephalopathy Elevated lactic acid level (Acute) Acute UTI (Acute) Sepsis (Acute) UTI (urinary tract infection) (Acute) Recurrent UTI (urinary tract infection) (Chronic) Ascending aorta dilatation Discussion about advance care planning held with family member Palliative care by specialist Confusion Cerebrovascular disease (Acute) HLD (hyperlipidemia) GERD (gastroesophageal reflux disease) UTI (urinary tract infection), uncomplicated Generalized weakness Gait apraxia Stroke 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 Neuropathy Fatigue Hypomagnesemia (Acute) Infarction of kidney (Acute) Bladder spasms Depression Confusion and disorientation Seizure-like activity Hypotension Leg swelling AMS (altered mental status) (Acute) Acute hypotension (Acute) Elevated lactic acid level (Acute) SKY (acute kidney injury) Acute metabolic encephalopathy Morbid obesity Prolonged PTT Cerebrovascular disease Abnormal brain MRI Nonobstructive atherosclerosis of coronary artery LBBB (left bundle branch block) Thoracic aortic aneurysm Bilateral leg edema Medical History Seizure, late effect of stroke Strain of rotator cuff of right shoulder No pertinent family history Surgical History S/P colonoscopy S/P hysterectomy S/P appendectomy History of back surgery Status post right knee replacement No pertinent past surgical history Social History Smoking Status: Never smoker Second Hand Exposure: No; Do You Dip or Chew Tobacco: No; Hx Alcohol Use: No Hx Substance Use: No Preferred Language: Yi Communication Ability: Effective Visual Impairment: No Limitations Hearing Ability: Normal Staker Surveying Required: No Beliefs That Will Affect Care: None marital status: / Current Living Situation: Personal Care Facility Current Living Situation Comment: At [facility] facility current occupational status: retired Feels Safe at Home: Yes Childhood Exposure to Second-Hand Smoke: No Diet: diabetic Dental Care, Regularly: No Physical Activity Frequency: Does not Exercise Seatbelt Use: always Sunscreen Use: No Assistive Devices: Walker Review of Systems Review of Systems: Review of systems and HPI as noted by limited due to patient's underlying dementia and confusion. Physical Exam Physical Exam: The patient is awake, confused, well developed and well nourished, normocephalic and atraumatic, lying in bed and in no acute distress. HEENT--PERRL, EOMI, mucous membranes and oropharynx normal. Neck--supple. No JVD. No bruits. Thyroid normal, trachea midline, no adenopathy. Heart--normal S1 and S2. No murmurs, rubs or gallops. Lungs--coarse breath sounds throughout, with crackles at the bases bilaterally Abdomen--normal bowel sounds and soft. Nontender. Nondistended. Extremities--1+ bilateral pretibial pitting edema. Dermatologic--normal skin turgor, normal color, no abnormal lymph nodes, no rash. Neurologic--cranial nerves II through XII grossly intact. Rheumatologic--limited exam Psychiatric--confused. Results & Data Results & Data Vital Signs (Past 12 Hours) Vital Signs Temp Pulse Resp BP Pulse Ox O2 Del Method O2 Flow Rate 07/15/25 20:24 95 H 20 96 Nasal Cannula 6 07/15/25 20:12 95 H 24 96 07/15/25 20:06 101 H 29 H 97 6 07/15/25 19:51 31 H 97 8 07/15/25 19:45 174/96 H 07/15/25 19:36 24 98 07/15/25 19:31 158/98 H 07/15/25 19:31 158/98 H 07/15/25 19:30 27 H 98 07/15/25 19:24 28 H 97 07/15/25 19:15 163/119 H 07/15/25 19:15 163/119 H 07/15/25 19:15 163/119 H 07/15/25 19:05 154/100 H 07/15/25 18:45 165/115 H 07/15/25 18:45 104 H 22 98 07/15/25 18:34 167/119 H 07/15/25 18:34 167/119 H 07/15/25 18:34 167/119 H 07/15/25 18:30 109 H 22 98 07/15/25 18:27 94 Nasal Cannula 8 07/15/25 18:21 112 H 29 H 95 07/15/25 18:20 77 L Room Air 07/15/25 18:17 119 H 07/15/25 18:16 36.8 C 115 H 28 H 168/124 H 94 Nasal Cannula 8 Laboratory Results Laboratory Results WBC 9.34 K/ul (4.8-10.8) 07/15/25 18:19 RBC 4.86 M/uL (4.20-5.40) 07/15/25 18:19 Hgb 15.4 g/dl (12.0-16.0) 07/15/25 18:19 Hct 47.7 % (37.0-47.0) H 07/15/25 18:19 MCV 98.1 fL (80.0-100.0) 07/15/25 18:19 MCH 31.7 pg (25.0-34.0) 07/15/25 18:19 MCHC 32.3 g/dL (32.0-36.0) 07/15/25 18:19 RDW Std Deviation 45.3 fL (36.4-46.3) 07/15/25 18:19 RDW Coeff of Sam 12.6 % (11.5-14.5) 07/15/25 18:19 Plt Count 229 K/uL (130-400) 07/15/25 18:19 MPV 10.2 fL (9.4-12.4) 07/15/25 18:19 Immature Gran % (Auto) 0.3 % 07/15/25 18:19 Neut % (Auto) 45.6 % 07/15/25 18:19 Lymph % (Auto) 40.3 % 07/15/25 18:19 Harper % (Auto) 8.9 % 07/15/25 18:19 Eos % (Auto) 3.9 % 07/15/25 18:19 Baso % (Auto) 1.0 % 07/15/25 18:19 Neut # (Auto) 4.27 K/uL (1.40-6.50) 07/15/25 18:19 Lymph # (Auto) 3.76 K/uL (1.20-3.40) H 07/15/25 18:19 Harper # (Auto) 0.83 K/uL (0.11-0.59) H 07/15/25 18:19 Eos # (Auto) 0.36 K/uL (0.00-0.50) 07/15/25 18:19 Baso # (Auto) 0.09 K/uL (0.00-0.20) 07/15/25 18:19 Immature Gran # (Auto) 0.03 K/uL (0.01-0.20) 07/15/25 18:19 PT 10.7 Seconds (9.0-12.0) 07/15/25 18:19 INR 1.0 (0.9-1.1) 07/15/25 18:19 APTT 25 Seconds (21-31) 07/15/25 18:19 PTT Ratio 0.9 07/15/25 18:19 VBG pH 7.34 (7.36-7.41) L 07/15/25 19:56 VBG pCO2 52 mmHg (38-50) H 07/15/25 19:56 VBG pO2 36 mmHg 07/15/25 19:56 VBG HCO3 28 mmol/L 07/15/25 19:56 VBG O2 Saturation < 60.0 % 07/15/25 19:56 VBG Base Excess 1.4 mEq/L 07/15/25 19:56 Sodium 139 mmol/L (136-145) 07/15/25 18:19 Potassium 4.0 mmol/L (3.5-5.1) 07/15/25 18:19 Chloride 103 mmol/L (98-107) 07/15/25 18:19 Carbon Dioxide 22 mmol/L (21-32) 07/15/25 18:19 Anion Gap 14 (3-11) H 07/15/25 18:19 BUN 10 mg/dl (6-23) 07/15/25 18:19 Creatinine 0.93 mg/dl (0.6-1.2) 07/15/25 18:19 Est Cr Clr Drug Dosing 66.6 ml/min 07/15/25 18:19 eGFR 61.75 07/15/25 18:19 BUN/Creatinine Ratio 10.8 (10-20) 07/15/25 18:19 Glucose 213 mg/dl (70-99(Fasting)) H 07/15/25 18:19 Lactate 2.2 mmol/L (0.4-2.0) H* 07/15/25 20:28 Calcium 9.5 mg/dl (8.6-10.3) 07/15/25 18:19 Magnesium 1.6 mg/dl (1.7-2.4) L 07/15/25 18:19 Total Bilirubin 0.8 mg/dl (0.2-1.0) 07/15/25 18:19 AST 18 U/L (13-39) 07/15/25 18:19 ALT 14 U/L (7-52) 07/15/25 18:19 Alkaline Phosphatase 57 U/L (34-104) 07/15/25 18:19 Ammonia 30.0 umol/L (18-72) 07/15/25 19:56 Troponin I High Sens 30.8 pg/ml (0-14) H 07/15/25 20:28 B-Natriuretic Peptide 827 pg/ml (0-100) H 07/15/25 18:19 Total Protein 7.3 gm/dl (6.0-8.3) 07/15/25 18:19 Albumin 4.2 gm/dl (3.4-5.0) 07/15/25 18:19 Globulin 3.1 gm/dl (2.5-4.0) 07/15/25 18:19 Albumin/Globulin Ratio 1.4 (0.9-2) 07/15/25 18:19 Urine Color Yellow 07/15/25 Unknown Urine Appearance Clear (Clear) 07/15/25 Unknown Urine pH 7.5 (4.5-7.5) 07/15/25 Unknown Ur Specific [place] 1.005 (1.000-1.030) 07/15/25 Unknown Urine Protein Negative (Negative) 07/15/25 Unknown Urine Glucose (UA) Trace (Negative) H 07/15/25 Unknown Urine Ketones Negative (Negative) 07/15/25 Unknown Urine Blood Negative (Negative) 07/15/25 Unknown Urine Nitrite Negative (Negative) 07/15/25 Unknown Urine Bilirubin Negative (Negative) 07/15/25 Unknown Urine Urobilinogen Negative (Negative) 07/15/25 Unknown Ur Leukocyte Esterase Negative (Negative) 07/15/25 Unknown Urine Comment 07/15/25 Unknown Nasal Screen MRSA (PCR) Negative (Negative) 07/15/25 22:45 Adenovirus (PCR) Not Detected (NotDetected) 07/15/25 Unknown B. pertussis DNA (PCR) Not Detected (NotDetected) 07/15/25 Unknown B.parapertussis DNA PCR Not Detected (NotDetected) 07/15/25 Unknown C. pneumoniae DNA (PCR) Not Detected (NotDetected) 07/15/25 Unknown Coronavirus OC43 (PCR) Not Detected (NotDetected) 07/15/25 Unknown Coronavirus HKU1 (PCR) Not Detected (NotDetected) 07/15/25 Unknown Coronavirus 229E (PCR) Not Detected (NotDetected) 07/15/25 Unknown SARS-CoV-2 (PCR) Not Detected (NotDetected) 07/15/25 Unknown Coronavirus NL63 (PCR) Not Detected (NotDetected) 07/15/25 Unknown Human Metapneumovir PCR Not Detected (NotDetected) 07/15/25 Unknown Influenza Type A (PCR) Not Detected (NotDetected) 07/15/25 Unknown Influenza Type B (PCR) Not Detected (NotDetected) 07/15/25 Unknown M. pneumoniae (PCR) Not Detected (NotDetected) 07/15/25 Unknown Parainfluenza 1 (PCR) Not Detected (NotDetected) 07/15/25 Unknown Parainfluenza 2 (PCR) Not Detected (NotDetected) 07/15/25 Unknown Parainfluenza 3 (PCR) Not Detected (NotDetected) 07/15/25 Unknown Parainfluenza 4 (PCR) Not Detected (NotDetected) 07/15/25 Unknown RSV (PCR) Not Detected (NotDetected) 07/15/25 Unknown Entero/Rhino (PCR) Not Detected (NotDetected) 07/15/25 Unknown Impressions Chest X-Ray 07/15/25 18:27 EXAM: Portable AP chest radiograph TECHNIQUE: AP portable radiograph of the chest was obtained. INDICATION: Shortness of breath Comparison: Chest radiograph December 03, 2024 FINDINGS: LINES and TUBES: None CARDIOVASCULAR: Cardiac silhouette is stable enlarged in size. Atherosclerosis of the thoracic aorta. LUNGS/PLEURA: Interval increase in perihilar densities likely reflecting worsening pulmonary edema. Pneumonia is not excluded. No focal consolidation identified. Small pleural fluids may be suggested. No discernible pneumothorax. OSSEOUS/OTHER: No displaced acute osseous process identified. IMPRESSION: Interval increase in perihilar densities likely reflecting worsening pulmonary edema. Pneumonia is not excluded. Electronically signed by Paramjit Altamirano 07-15-2025 7:07 PM Code Status & VTE Plan Code Status Full code, as discussed with son, who is conversing via text with the daughter, who is POA VTE Prophylaxis Plan VTE Prophylaxis will be ordered: Yes PG Care Time/CCT Total # of Minutes Spent Total Time Spent with Patient: Total time spent is greater than 50% in coordination of care (as documented) at patient's floor/unit and/or counseling patient: Coding Level of Care Code 81739 INT INP/OBS CARE 3/75MIN Diagnoses Acute respiratory failure with hypoxia J96.01 Multifocal pneumonia J18.8 CHF exacerbation I50.9 Elevated lactic acid level R79.89
[2025-07-15] MEDS: POTASSIUM CHLORIDE CRTAB 20 MEQ TABCR PO STA (22:17)
[2025-07-15] MEDS: MAGNESIUM SULFATE / D5W 1 GM/100 ML BAG IV ONE (22:17)
[2025-07-15] MEDS: ACETAMINOPHEN 325 MG TAB PO STA (22:36)
[2025-07-15] MEDS ORDERED: GLUCOSE 40% GEL 15 GM TUBE PO PRN (23:48)
[2025-07-15] MEDS ORDERED: GLUCOSE 10 TAB/TUBE PO PRN (23:48)
[2025-07-15] MEDS ORDERED: GLUCAGON FOR INJ 1 MG VIAL SQ PRN (23:48)
[2025-07-15] MEDS ORDERED: CARBOHYDRATES FOR HYPOGLYCEMIA PO PRN (23:48)
[2025-07-15] MEDS ORDERED: ALBUT/IPRATROP 3MG/0.5MG NEB 3 ML VIAL NEB PRN (23:48)
[2025-07-15] MEDS ORDERED: DEXTROSE 50% 50 ML SYRINGE IV PRN (23:48)
[2025-07-16] MEDS: lamoTRIgine 25 MG TAB PO SCH (00:09)
[2025-07-16] MEDS: CEFEPIME 2000MG 2,000 MG/20 ML SYR IV SCH (03:05)
[2025-07-16] MEDS: LEVOTHYROXINE SODIUM 25 MCG TABLET PO SCH (06:02)
[2025-07-16 06:16] LABS: Hematocrit (blood only) 39.5 % (37.0-47.0); Hemoglobin 13.5 g/dl (12.0-16.0); Immature Granulocytes # (auto) 0.02 K/uL (0.01-0.20); Immature Granulocytes % (auto) 0.3 %; Mean Corpuscular Hemoglobin 32.9 pg (25.0-34.0); Mean Corpuscular Volume 96.3 fL (80.0-100.0); Platelet Count 193 K/uL (130-400); RDW Standard Deviation 44.8 fL (36.4-46.3); Red Blood Count 4.10 M/uL (4.20-5.40); White Blood Count 6.44 K/ul (4.8-10.8)
[2025-07-16 06:34] LABS: Alanine Aminotransferase 10.0 U/L (7-52); Albumin Globulin Ratio 1.4 (0.9-2); Albumin Level 3.6 gm/dl (3.4-5.0); Alkaline Phosphatase 45.0 U/L (34-104); Anion Gap 8.0 (3-11); Bilirubin,Total 1.2 mg/dl (0.2-1.0); Blood Urea Nitrogen 11.0 mg/dl (6-23); Calcium 9.0 mg/dl (8.6-10.3); Carbon Dioxide 30.0 mmol/L (21-32); Chloride 102.0 mmol/L (98-107); Creatinine Clr Calc Pharmacy 60.2 ml/min; Globulin 2.6 gm/dl (2.5-4.0); Glucose 239.0 mg/dl (70-99(Fasting)); Magnesium 1.9 mg/dl (1.7-2.4); Potassium 3.8 mmol/L (3.5-5.1); Sodium 140.0 mmol/L (136-145); Total Protein 6.2 gm/dl (6.0-8.3)
[2025-07-16 07:39] LABS: Hemoglobin A1C 8.6 % (4.5-5.6)
[2025-07-16] MEDS: POTASSIUM CHLORIDE CRTAB 20 MEQ TABCR PO SCH (08:10)
[2025-07-16] MEDS: CYANOCOBALAMIN (B-12) 500 MCG TABLET PO SCH (08:11)
[2025-07-16] MEDS: CHOLECALCIFEROL 25 MCG (1000 UNITS) TAB PO SCH (08:11)
[2025-07-16] MEDS: CLOPIDOGREL BISULFATE 75 MG TAB PO SCH (08:11)
[2025-07-16] MEDS ORDERED: FUROSEMIDE 40 MG/4 ML VIAL IV SCH (09:00)
[2025-07-16] MEDS: INSULIN ASPART PER UNIT CHARGE SC SCH (09:55)
--- NOTE | 2025-07-16 13:22 | XCELERA ---
[id number] [id number]
[2025-07-16] MEDS: FUROSEMIDE 40 MG/4 ML VIAL IV ONE (14:28)
[2025-07-16] MEDS: MAGNESIUM SULFATE / D5W 1 GM/100 ML BAG IV ONE (14:28)
[2025-07-16] MEDS: LANTUS PER UNIT CHARGE SQ ONE (14:29)
[2025-07-16] MEDS: DOXYCYCLINE HYCLATE 100 MG in DEXTROSE 5% MINI-B 100 ML IV SCH (14:35)
--- NOTE | 2025-07-16 17:30 | Hospitalist Progress Note ---
Date of Service July 16, 2025 Assessment & Plan (1) Acute respiratory failure with hypoxia: (2) CHF exacerbation: (3) Multifocal pneumonia: (4) Elevated lactic acid level: Plan This patient is an 79-year-old female with a H/o hypothyroidism, hypertension, LBBB, TAA, dementia, DM 2, syncope, recurrent urinary tract infections, CVA, hyperlipidemia, neuropathy, depression, and bilateral extremity edema who presented with confusion and was found to be hypoxic with a pulse ox of 70% on room air with tachypnea, requiring 4L NC O2. CXR consistent with pulmonary edema and CHF versus pneumonia. She was also found to have a lactic acidosis with a lactate of 7.0 which was likely from hypoxemia. Her weight is up 8-9 kg from 1 year ago, and she has significant peripheral edema on exam. She was hypertensive and tachycardic on arrival. She is admitted for acute respiratory failure with hypoxemia secondary to acute HFrEF #Acute respiratory failure with hypoxia/acute HFrEF/possible pneumonia/elevated troponin-seems more likely at this point that her respiratory failure and chest x-ray findings are from heart failure given that echo is with LVEF 20-25% with global hypokinesis and severe LVH. Doubtful that she has true pneumonia. No fevers, no leukocytosis. Troponin peaked at 72. No chest pain, with chronic LBBB on EKG but no definite ischemic changes. Elevated troponin could be from demand ischemia in the setting of severe LVH and CHF. Unclear cause of heart failure. Last echo 1 year prior with preserved EF. - Check procalcitonin and if negative, discontinue cefepime and doxycycline - Continue diuresis-add Lasix 20 mg IV twice daily -Continue supplemental O2 and wean off as able to keep pulse ox greater than 90% - Increase carvedilol to 6.25 mg p.o. twice daily for tachycardia and hypertension as part of guideline directed medical therapy for HFrEF - Consult cardiology for further evaluation of new onset HFrEF - Plan to start Entresto most likely - Continue strict I's and O's, Bey catheter, daily weights, low-sodium diet - Follow BMP, magnesium in the morning keep electrolytes are replete-continue oral potassium supplement and give 1 g IV magnesium today #DM2-with hyperglycemia here on lower doses of insulin here than at home. HgbA1c here is elevated at 8.6% -Tighten down NovoLog sliding scale -Increase Lantus to 15 units at bedtime and given extra 5 units Lantus this morning -Hold home metformin #Lactic acidosis-Lactate on admission 7.0, with follow-up 2.2. Likely secondary to hypoxemia and not septic shock #History of CVA/HTN/TIA-no acute issues except blood pressures have been elevated - Continue home Plavix - Not on a statin for unclear reason - Increasing carvedilol to 6.25 mg p.o. twice daily for heart failure and for improved BP control - Continue to diurese with Lasix #Dementia/depression/history of seizure-like activity- -Continue lamotrigine, paroxetine #GERD-no acute issues - Continue PPI #Hypothyroidism-TSH normal in 12/2024 -Continue levothyroxine home dose -Check TSH in the morning DVT prophylaxis-add Lovenox SQ Disposition-continued stay in PCU. Called daughter on 07/16 and left a voicemail to discuss new onset heart failure. Added PT/OT consults. Patient comes from personal-custodial Admission and Anticipated Discharge Date Admission Date: July 15, 2025 Subjective Patient pleasantly confused. Says she does not feel like eating her dinner. Denies shortness of breath or cough. Denies chest pain. I tried to call her daughter to get more information but was unable to get through. Nursing reports no issues through the day. She has put out a lot of urine with IV Lasix. Telemetry with normal sinus rhythm with rates in the 80s Physical Exam Constitutional: WD/WN, vitals as above + obese Respiratory: normal respiratory effort; no cough Auscultation: + diminished lung sounds (Bibasilar); no crackles, no rhonchi and no wheezes Cardiovascular: Rate/Rhythm: regular rate and regular rhythm Heart Sounds: no murmur Extremities: + edema (2+ pitting edema to the knees bilaterally) Gastrointestinal (Abdomen): normal bowel sounds, soft, nontender, no hepatosplenomegaly Psychiatric: Orientation: alert, oriented to person, oriented to place (Only to "hospital") and cooperative Genitourinary: + abnormal external appearance (Bey ca theter in place draining clear yellow urine) Results & Data Results & Data Vital Signs (Past 12 Hours) Vital Signs Temp Pulse Pulse Resp BP Pulse Ox O2 Del Method 10/11/25 15:32 36.7 C 98 H 20 152/82 H 95 Nasal Cannula 07/16/25 15:09 88 07/16/25 10:49 37.4 C 88 18 146/82 H 97 Nasal Cannula 07/16/25 09:01 89 07/16/25 09:00 Nasal Cannula 07/16/25 07:24 36.7 C 90 18 109/68 95 Nasal Cannula O2 Flow Rate 07/16/25 15:32 3 07/16/25 15:09 07/16/25 10:49 3 07/16/25 09:01 07/16/25 09:00 2 07/16/25 07:24 2 Laboratory Results CBC, CMP, magnesium, HgbA1c, troponin reviewed Diagnostic Findings Echo reviewed PG Care Time/CCT Total # of Minutes Spent Total Time Spent with Patient: Total time spent is greater than 50% in coordination of care (as documented) at patient's floor/unit and/or counseling patient: Coding Level of Care Code 22898 SUB INP/OBS CARE 3/50MIN Diagnoses Acute respiratory failure with hypoxia J96.01 CHF exacerbation I50.9 Multifocal pneumonia J18.8 Elevated lactic acid level R79.89
[2025-07-16] MEDS ORDERED: Nursing to Pharmacy Communication SCH (19:00)
[2025-07-16] MEDS: ENOXAPARIN INJ 40 MG/0.4 ML SYR SQ SCH ×2 (19:31→20:28)
[2025-07-16] MEDS: ACETAMINOPHEN 325 MG TAB PO PRN (19:34)
[2025-07-16] MEDS: FUROSEMIDE INJ 20 MG/2 ML VIAL IV SCH (20:28)
[2025-07-16] MEDS: LANTUS PER UNIT CHARGE SQ SCH (20:30)
[2025-07-16] MEDS ORDERED: LANTUS PER UNIT CHARGE SQ SCH (21:00)
[2025-07-17 05:53] LABS: Hematocrit (blood only) 42.1 % (37.0-47.0); Hemoglobin 14.3 g/dl (12.0-16.0); Immature Granulocytes # (auto) 0.02 K/uL (0.01-0.20); Immature Granulocytes % (auto) 0.3 %; Mean Corpuscular Hemoglobin 32.9 pg (25.0-34.0); Mean Corpuscular Volume 96.8 fL (80.0-100.0); Platelet Count 191 K/uL (130-400); RDW Standard Deviation 44.7 fL (36.4-46.3); Red Blood Count 4.35 M/uL (4.20-5.40); White Blood Count 7.38 K/ul (4.8-10.8)
[2025-07-17 06:10] LABS: Alanine Aminotransferase 11.0 U/L (7-52); Albumin Globulin Ratio 1.3 (0.9-2); Albumin Level 3.7 gm/dl (3.4-5.0); Alkaline Phosphatase 45.0 U/L (34-104); Anion Gap 9.0 (3-11); Bilirubin,Total 1.2 mg/dl (0.2-1.0); Blood Urea Nitrogen 13.0 mg/dl (6-23); Calcium 9.2 mg/dl (8.6-10.3); Carbon Dioxide 32.0 mmol/L (21-32); Chloride 99.0 mmol/L (98-107); Creatinine Clr Calc Pharmacy 47.9 ml/min; Globulin 2.8 gm/dl (2.5-4.0); Glucose 181.0 mg/dl (70-99(Fasting)); Magnesium 2.0 mg/dl (1.7-2.4); Potassium 3.6 mmol/L (3.5-5.1); Sodium 140.0 mmol/L (136-145); Total Protein 6.5 gm/dl (6.0-8.3)
[2025-07-17 06:24] LABS: Thyroid Stimulating Hormone 2.584 uIu/ml (0.300-4.500)
--- NOTE | 2025-07-17 07:03 | Electrocardiogram Report ---
Test Reason : Blood Pressure : */* mmHG Vent. Rate : 90 BPM Atrial Rate : 90 BPM P-R Int : 198 ms QRS Dur : 150 ms QT Int : 438 ms P-R-T Axes : 36 -18 64 degrees QTcB Int : 535 ms Normal sinus rhythm Possible Left atrial enlargement Left bundle branch block Abnormal ECG When compared with ECG of 15-Jul-2025 18:18, Premature ventricular complexes are no longer Present Questionable change in QRS axis Confirmed by Jovany Ngo ([id number]) on 07/17/2025 7:03:25 AM Referred By: REFERRED SELF Confirmed By: Jovany Ngo
--- NOTE | 2025-07-17 07:03 | Electrocardiogram Report ---
Test Reason : Blood Pressure : */* mmHG Vent. Rate : 117 BPM Atrial Rate : 117 BPM P-R Int : 152 ms QRS Dur : 148 ms QT Int : 396 ms P-R-T Axes : 30 76 29 degrees QTcB Int : 552 ms Poor data quality, interpretation may be adversely affected Sinus tachycardia with frequent Premature ventricular complexes Possible Left atrial enlargement Left bundle branch block Abnormal ECG When compared with ECG of 03-Dec-2024 16:32, Premature ventricular complexes are now Present Questionable change in QRS axis Confirmed by Jovany Ngo ([id number] on 07/17/2025 7:03:03 AM Referred By: REFERRED SELF Confirmed By: Jovany Ngo
--- NOTE | 2025-07-17 11:21 | Cardiology Consultation ---
Date of Consultation July 17, 2025 Assessment & Plan (1) Acute HFrEF (heart failure with reduced ejection fraction): (2) Nonischemic cardiomyopathy: (3) HTN (hypertension): (4) LBBB (left bundle branch block): (5) Elevated troponin: Plan ASSESSMENT/PLAN: 1. Acute heart failure with reduced EF: She does not appear significantly hypervolemic now after brisk diuresis with a net negative of nearly 6.7 L since admission. With creatinine trending upward, would recommend transitioning to oral Lasix tomorrow 40 mg p.o. daily to start. If renal function remains stable tomorrow, recommend low-dose Entresto. Continue carvedilol which was titrated last evening by hospitalist service. Pending renal function and electrolytes, but also then consider mineralocorticoid receptor antagonist such as spironolactone and if no contraindication, SGLT2 inhibitor for GDMT. 2. Cardiomyopathy: Has a history of nonischemic cardiomyopathy based on outpatient cardiology records. According to her primary cardiology note, she underwent cath in 2022 with no significant CAD reported. Recommend GDMT as above. Can consider outpatient secondary workup as applicable. Her longstanding left bundle branch block may be playing a role. If LV systolic function does not improve after optimal therapy for 90 days, could consider ICD for primary prevention and if so, biventricular device may be beneficial. 3. Elevated troponin: She did not present with acute coronary syndrome based on records. Likely demand ischemia due to her heart failure exacerbation. Plan as above. 4. Left bundle branch block: Chronic. If ICD for primary prevention is indicated and pursued in the future, consider biventricular device. 5. Hypertension: Blood pressure was elevated on presentation but has since been mostly normotensive. Plan as above. 6. Disposition: I will be away from the hospital tomorrow. I will sign out to Dr. Rivera who will be rounding this week. Please call on-call metal fabricator helper with questions or concerns. Referral will be placed for heart failure program. Also follow-up with her primary metal fabricator helper, Dr. Clarke. Patient care communicated with Dr. Lester of the primary hospitalist service. Called patient's daughter, Gilda, but no answer. Thank you for allowing me to participate in the care of your patient. Please call for any other questions or concerns. Sincerely, Alonzo Ngo M.D. History of Present Illness Reason for Consultation: " New onset HFrEF" Requesting Physician: Autumn Lester MD Attending Physician: Autumn Lester MD History of Present Illness Ms. Mccormack is a pleasant 79-year-old female with a history significant for cardiomyopathy, heart failure with reduced EF, type 2 diabetes, metabolic encephalopathy, hypertension, stroke/cerebrovascular disease, dyslipidemia, and dementia. Her primary metal fabricator helper is Dr. Clarke. She has had the following studies/procedures: 1. Cardiac cath 2015 [facility]: EF 40%. According to outpatient cardiology visit. 2. Echo 01/02/2023 [facility]: EF 40-45%. 3. Cardiac cath 01/13/2023 [facility]: LAD mild CAD. Dominant RCA. PCWP 16; CI 3.06 L/min/m. LVEDP 8. 4. Echo 07/16/2025 [facility]: Normal LV size. EF 20-25%. Global hypokinesis. Severe concentric LVH. Abnormal septal motion consistent with bundle branch block. Normal RV size and systolic function. Mild MR. Normal RVSP. She was hospitalized on 07/15/2025 with acute respiratory failure with hypoxia. There was initial concern by hospitalist service for pneumonia but antibiotics have since been discontinued as procalcitonin level was normal and treatment focused on heart failure. She is a very poor historian. She cannot remember why she was admitted although she knows she is at [facility]. She does not recall if she felt short of breath. She currently denies shortness of breath, chest pain, palpitations. She is unable to give a reliable review of systems. She was very pleasant during our visit and was humming songs. Review of systems: Unobtainable due to patient's poor memory. Family history: Noncontributory. Social history: Denies tobacco or alcohol abuse. . She reports 4 children, including 3 sons and a daughter. Her daughter is Gilda and she thinks she might keep in touch with her daughter. She was unaccompanied. Allergies Allergy/AdvReac Type Severity Reaction Status Date / Time aspirin Allergy Severe Hives Verified 01/25/25 13:40 NSAIDS (Non-Steroidal Allergy Intermediate Hives Verified 01/25/25 13:40 Anti-Inflamma Penicillins Allergy Intermediate Hives Verified 01/25/25 13:40 vancomycin Allergy Intermediate Redness of Verified 01/25/25 13:40 Skin fenofibrate Allergy Unknown ON PT MED Verified 01/25/25 13:40 LIST naproxen Allergy Unknown Unknown - Verified 01/25/25 13:40 On Med List from [facility] propoxyphene Allergy Unknown ON PT MED Verified 01/25/25 13:40 LIST Home Medications Medication Instructions Recorded Confirmed Type carvedilol 3.125 mg tablet 3.125 mg PO BID 01/29/22 01/25/25 History paroxetine HCl 20 mg tablet 20 mg PO HS 01/29/22 01/25/25 History metformin 1,000 mg tablet 1,000 mg PO QAM 01/14/23 01/25/25 History cholecalciferol (vitamin D3) 25 25 mcg PO QAM 03/17/23 01/25/25 History mcg (1,000 unit) capsule (Vitamin D3) levothyroxine 25 mcg tablet 25 mcg PO DAILYBB 03/17/23 01/25/25 History (Synthroid) multivitamin with minerals-folic 1 tab PO QAM 03/17/23 01/25/25 History acid 200 mcg chewable tablet (Adult Multivitamin Gummies) clopidogrel 75 mg tablet 75 mg PO QAM #30 tabs 04/28/23 01/25/25 Rx diclofenac sodium 1 % topical gel 2 g topical QID PRN Pain 02/05/24 01/25/25 History emollient combination no.92 1 applic topical BID Dry skin - 02/05/24 01/25/25 History (Lubriderm Daily Moisture lotion) Legs insulin glargine 100 unit/mL (3 10 unit subcut HS 02/05/24 01/25/25 History mL) subcutaneous pen (Lantus Solostar U-100 Insulin) loperamide 2 mg capsule 2 mg PO UD PRN Diarrhea 02/05/24 01/25/25 History omeprazole 40 mg capsule,delayed 40 mg PO DAILYBB 02/05/24 01/25/25 History release acetaminophen 325 mg tablet 650 mg PO Q4 PRN Fever Or Pain 06/01/24 01/25/25 History (Tylenol) potassium chloride 20 mEq 20 meq PO DAILY PRN .When lasix is 06/01/24 01/25/25 History tablet,extended release given cyanocobalamin (vitamin B-12) 500 500 mcg PO QAM #30 tabs 06/10/24 01/25/25 Rx mcg tablet ferrous sulfate 325 mg (65 mg 325 mg PO Q48H #20 tabs 06/10/24 01/25/25 Rx iron) tablet,delayed release furosemide 40 mg tablet (Lasix) 40 mg PO .COMPLEX PRN .EDEMA/WT 06/16/24 01/25/25 Rx GAIN #90 tabs diazepam 5 mg tablet (Valium) 5 mg PO .COMPLEX PRN anxiety #2 09/27/24 01/25/25 Rx tabs hydroxyzine HCl 25 mg tablet 25 mg PO BID PRN 12/24/24 01/25/25 History lamotrigine 25 mg tablet 75 mg PO BID 12/24/24 01/25/25 History acetaminophen 650 mg 650 mg PO .Q4 PRN fever or pain 01/25/25 01/25/25 History tablet,extended release cranberry 10,000 mg PO DAILY Chronic UTI 01/25/25 History dextromethorphan-guaifenesin 20 10 ml PO Q6 PRN 01/25/25 01/25/25 History mg-200 mg/5 mL oral elixir dextromethorphan-guaifenesin 30 2 tab PO Q12H PRN cough 01/25/25 01/25/25 History mg-600 mg tablet extended [id number] hr (Mucinex DM) magnesium hydroxide 400 mg/5 mL 30 ml PO .q 3 days PRN constipation 01/25/25 01/25/25 History oral suspension (Milk of Magnesia) Problem List (Updated 07/17/25 @ 11:21 by Jovany Ngo MD) Elevated troponin Nonischemic cardiomyopathy Acute HFrEF (heart failure with reduced ejection fraction) CHF exacerbation Multifocal pneumonia Acute respiratory failure with hypoxia Hypomagnesemia (Acute) Elevated lactic acid level (Acute) Acute confusion (Acute) Hypoxia (Acute) CHF (congestive heart failure) (Acute) Acute respiratory distress (Acute) Left knee pain H/O: stroke Episode of unresponsiveness (Acute) Anemia (Acute) AMS (altered mental status) (Acute) Hypothyroidism HTN (hypertension) Dementia (Acute) Diabetes Unresponsive episode Syncope Dehydration Encephalopathy Elevated lactic acid level (Acute) Acute UTI (Acute) Sepsis (Acute) UTI (urinary tract infection) (Acute) Recurrent UTI (urinary tract infection) (Chronic) Ascending aorta dilatation Discussion about advance care planning held with family member Palliative care by specialist Confusion Cerebrovascular disease (Acute) HLD (hyperlipidemia) GERD (gastroesophageal reflux disease) UTI (urinary tract infection), uncomplicated Generalized weakness Gait apraxia Stroke 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 Neuropathy Fatigue Hypomagnesemia (Acute) Infarction of kidney (Acute) Bladder spasms Depression Confusion and disorientation Seizure-like activity Hypotension Leg swelling AMS (altered mental status) (Acute) Acute hypotension (Acute) Elevated lactic acid level (Acute) SKY (acute kidney injury) Acute metabolic encephalopathy Morbid obesity Prolonged PTT Cerebrovascular disease Abnormal brain MRI Nonobstructive atherosclerosis of coronary artery LBBB (left bundle branch block) Thoracic aortic aneurysm Bilateral leg edema Patient History Medical History Seizure, late effect of stroke Strain of rotator cuff of right shoulder No pertinent family history Surgical History S/P colonoscopy S/P hysterectomy S/P appendectomy History of back surgery Status post right knee replacement No pertinent past surgical history Social History Smoking Status: Never smoker Second Hand Exposure: No; Do You Dip or Chew Tobacco: No; Hx Alcohol Use: No Hx Substance Use: No Preferred Language: Rwandan Communication Ability: Effective Visual Impairment: No Limitations Hearing Ability: Normal Medical Accounting Clerk Required: No Beliefs That Will Affect Care: None marital status: / Current Living Situation: Personal Care Facility Current Living Situation Comment: At [facility] facility current occupational status: retired Other Information That Helps Us Care for You: No Feels Safe at Home: Yes Safety Concerns: Feels Safe At This Time Childhood Exposure to Second-Hand Smoke: No Diet: diabetic Dental Care, Regularly: No Physical Activity Frequency: Does not Exercise Seatbelt Use: always Sunscreen Use: No Assistive Devices: Walker Physical Exam Physical Exam: Gen.: No acute distress. Alert and oriented to self and place. HEENT: Anicteric sclera. Neck: No JVD. No appreciable hepatojugular reflux. No bruits. Normal carotid upstrokes bilaterally. Cardiac: Regular. Normal S1-S2. 1/6 systolic murmur. Pulmonary: Clear to auscultation bilaterally without wheezes, rales, or rhonchi. Abdomen: Soft, nontender, nondistended, with normoactive bowel sounds. No bruits noted. Extremities: 2+ radial pulses bilaterally. 2+ posterior tibialis pulses bilater ally. Trace bilateral lower extremity edema. No cyanosis. Results & Data Vital Signs (Past 12 Hours) Vital Signs Temp Pulse Pulse Resp BP Pulse Ox O2 Del Method 07/17/25 10:57 36.8 C 75 18 105/65 95 Nasal Cannula 07/17/25 08:00 81 07/17/25 08:00 Nasal Cannula 07/17/25 07:29 36.8 C 87 16 116/66 93 Nasal Cannula 07/17/25 03:51 36.7 C 81 16 98/61 L 95 Nasal Cannula 07/16/25 23:16 37.0 C 79 14 102/55 L 95 Nasal Cannula O2 Flow Rate 07/17/25 10:57 2 07/17/25 08:00 07/17/25 08:00 2 07/17/25 07:29 2 07/17/25 03:51 2 07/16/25 23:16 2 Intake & Output 07/15/25 07/16/25 07/17/25 07/18/25 06:59 06:59 06:59 06:59 Intake Total 250 / 250 425 / 425 Output Total 4950 / 4950 2350 / 2350 Balance -4700 / -4700 -1925 / -1925 Weight 267 lb 13.786 oz 259 lb 0.69 oz 255 lb 4.725 oz Laboratory Results Laboratory Results - last 24 hr 07/16/25 07/16/25 07/16/25 11:18 13:10 16:36 WBC RBC Hgb Hct MCV MCH MCHC RDW Std Deviation RDW Coeff of Sam Plt Count MPV Immature Gran % (Auto) Neut % (Auto) Lymph % (Auto) [place] % (Auto) Eos % (Auto) Baso % (Auto) Neut # (Auto) Lymph # (Auto) [place] # (Auto) Eos # (Auto) Baso # (Auto) Immature Gran # (Auto) Sodium Potassium Chloride Carbon Dioxide Anion Gap BUN Creatinine Est Cr Clr Drug Dosing eGFR BUN/Creatinine Ratio Glucose POC Glucose 267 H 210 H Calcium Magnesium Total Bilirubin AST ALT Alkaline Phosphatase Troponin I High Sens 46.0 H D Total Protein Albumin Globulin Albumin/Globulin Ratio Procalcitonin TSH 07/16/25 07/16/25 07/17/25 18:05 20:15 05:17 WBC 7.38 RBC 4.35 Hgb 14.3 Hct 42.1 MCV 96.8 MCH 32.9 MCHC 34.0 RDW Std Deviation 44.7 RDW Coeff of Sam 12.4 Plt Count 191 MPV 9.9 Immature Gran % (Auto) 0.3 Neut % (Auto) 52.0 Lymph % (Auto) 26.6 [place] % (Auto) 14.1 Eos % (Auto) 6.2 Baso % (Auto) 0.8 Neut # (Auto) 3.84 Lymph # (Auto) 1.96 [place] # (Auto) 1.04 H Eos # (Auto) 0.46 Baso # (Auto) 0.06 Immature Gran # (Auto) 0.02 Sodium 140 Potassium 3.6 Chloride 99 Carbon Dioxide 32 Anion Gap 9 BUN 13 Creatinine 1.22 H Est Cr Clr Drug Dosing 47.9 eGFR 44.58 BUN/Creatinine Ratio 10.7 Glucose 181 H POC Glucose 181 H Calcium 9.2 Magnesium 2.0 Total Bilirubin 1.2 H AST 15 ALT 11 Alkaline Phosphatase 45 Troponin I High Sens Total Protein 6.5 Albumin 3.7 Globulin 2.8 Albumin/Globulin Ratio 1.3 Procalcitonin 0.06 TSH 2.584 07/17/25 08:02 WBC RBC Hgb Hct MCV MCH MCHC RDW Std Deviation RDW Coeff of Sam Plt Count MPV Immature Gran % (Auto) Neut % (Auto) Lymph % (Auto) [place] % (Auto) Eos % (Auto) Baso % (Auto) Neut # (Auto) Lymph # (Auto) [place] # (Auto) Eos # (Auto) Baso # (Auto) Immature Gran # (Auto) Sodium Potassium Chloride Carbon Dioxide Anion Gap BUN Creatinine Est Cr Clr Drug Dosing eGFR BUN/Creatinine Ratio Glucose POC Glucose 197 H Calcium Magnesium Total Bilirubin AST ALT Alkaline Phosphatase Troponin I High Sens Total Protein Albumin Globulin Albumin/Globulin Ratio Procalcitonin TSH Diagnostic Findings Telemetry personally reviewed: Predominantly sinus rhythm. Occasional ventricular triplets. ECG personally reviewed: ECG 07/17/2025 at 5:26 AM: Sinus rhythm 84 bpm. LBBB. ECG 07/15/2025 at 6:01 AM: Sinus rhythm 90 bpm. LBBB. ECG 07/15/2025 at 1818: Sinus tachycardia 117 bpm. PVCs. LBBB. Echo report reviewed as noted above in HPI. Hospitalist progress note in H&P reviewed. Chest x-ray 07/15/2025: Interval increase in perihilar density likely reflecting worsening pulmonary edema per radiology. Chest x-ray personally reviewed with pulmonary vascular congestion noted. No obvious infiltrate. Outpatient cardiology note reviewed as summarized in HPI in regards to older tests/procedures. Labs reviewed and notable for elevated high-sensitivity troponin (peak 71), elevated BNP (827 but previously 65 on 02/01/2025), normal potassium, mildly abnormal renal function, elevated A1c, normal magnesium level, normal trans aminase levels, normal TSH, normal blood counts, normal procalcitonin level. Medications Administered Current Inpatient Medications Acetaminophen (Acetaminophen 325 Mg Tab) 650 mg PO Q4 PRN PRN Reason: Fever Or Pain Stop: 08/14/25 23:47 Last Admin: 07/16/25 19:34 Dose: 650 mg Albuterol (Albut/Ipratrop 3mg/0.5mg Neb 3 Ml Vial) 3 ml NEB Q2H PRN; Protocol PRN Reason: dyspnea Stop: 08/14/25 23:47 Carvedilol (Carvedilol 6.25 Mg Tab) 6.25 mg PO BID ROSANNA Stop: 08/15/25 20:59 Last Admin: 07/17/25 08:38 Dose: 6.25 mg Clopidogrel Bisulfate (Clopidogrel Bisulfate 75 Mg Tab) 75 mg PO QAM ROSANNA Stop: 08/15/25 08:59 Last Admin: 07/17/25 08:39 Dose: 75 mg Cyanocobalamin (Cyanocobalamin (B-12) 500 Mcg Tablet) 500 mcg PO QAM ROSANNA Stop: 08/15/25 08:59 Last Admin: 07/17/25 08:39 Dose: 500 mcg Dextrose (Dextrose 50% 50 Ml Syringe) 25 - 50 ml IV UD PRN; Protocol PRN Reason: Hypoglycemia Protocol Stop: 08/14/25 23:47 Enoxaparin Sodium (Enoxaparin Inj 40 Mg/0.4 Ml Syr) 40 mg SQ BID ROSANNA Stop: 08/15/25 20:59 Last Admin: 07/17/25 08:40 Dose: 40 mg Furosemide (Furosemide Inj 20 Mg/2 Ml Vial) 20 mg IV BID ROSANNA Stop: 08/15/25 20:59 Last Admin: 07/17/25 08:51 Dose: 20 mg Glucagon (Glucagon For Inj 1 Mg Vial) 1 mg SQ UD PRN; Protocol PRN Reason: Hypoglycemia Protocol Stop: 08/14/25 23:47 Glucose (Glucose 40% Gel 15 Gm Tube) 15 - 30 gm PO UD PRN; Protocol PRN Reason: Hypoglycemia Protocol Stop: 08/14/25 23:47 Glucose (Glucose 10 Tab/Tube) 4 - 8 tab PO UD PRN; Protocol PRN Reason: Hypoglycemia Protocol Stop: 08/14/25 23:47 Insulin Aspart (Insulin Aspart Per Unit Charge) 0 units SC ACHS [facility] Stop: 08/15/25 07:29 Last Admin: 07/17/25 08:37 Dose: 6 units Insulin Glargine (Lantus Per Unit Charge) 15 units SQ HS ROSANNA Stop: 08/15/25 20:59 Last Admin: 07/16/25 20:30 Dose: 15 units Lamotrigine (Lamotrigine 25 Mg Tab) 75 mg PO BID ROSANNA; Protocol Stop: 08/14/25 23:47 Last Admin: 07/17/25 08:40 Dose: 75 mg Levothyroxine Sodium (Levothyroxine Sodium 25 Mcg Tablet) 25 mcg PO DAILYBB [facility] Stop: 08/15/25 06:29 Last Admin: 07/17/25 06:41 Dose: 25 mcg Miscellaneous (Carbohydrates For Hypoglycemia ) 15 - 30 gm PO UD PRN PRN Reason: Hypoglycemia Protocol Stop: 08/14/25 23:47 Pantoprazole Sodium (Pantoprazole 40 Mg Tab) 40 mg PO DAILYBB ROSANNA Stop: 08/15/25 06:29 Last Admin: 07/17/25 06:41 Dose: 40 mg Paroxetine HCl (Paroxetine Hcl 20 Mg Tab) 20 mg PO HS ROSANNA Stop: 08/15/25 20:59 Last Admin: 07/16/25 20:28 Dose: 20 mg Potassium Chloride (Potassium Chloride Crtab 20 Meq Tabcr) 20 meq PO DAILY ROSANNA Stop: 08/15/25 08:59 Last Admin: 07/17/25 08:51 Dose: 20 meq Vitamin D (Cholecalciferol 25 Mcg (1000 Units) Tab) 25 mcg PO QAM ROSANNA Stop: 08/15/25 08:59 Last Admin: 07/17/25 08:39 Dose: 25 mcg PG Care Time/CCT Total # of Minutes Spent Total Time Spent with Patient: Total time spent is greater than 50% in coordination of care (as documented) at patient's floor/unit and/or counseling patient: Coding Level of Care Code 64104 INT INP/OBS CARE 3/75MIN Diagnoses Acute HFrEF (heart failure with reduced ejection fraction) I50.21 Nonischemic cardiomyopathy I42.8 HTN (hypertension) I10 LBBB (left bundle branch block) I44.7 Elevated troponin R79.89
--- NOTE | 2025-07-17 16:34 | Hospitalist Progress Note ---
Date of Service July 17, 2025 Assessment & Plan (1) Acute respiratory failure with hypoxia: (2) CHF exacerbation: (3) Elevated lactic acid level: Plan This patient is an 79-year-old female with a H/o hypothyroidism, hypertension, LBBB, TAA, dementia, DM 2, syncope, recurrent urinary tract infections, CVA, hyperlipidemia, neuropathy, depression, and bilateral extremity edema who presented with confusion and was found to be hypoxic with a pulse ox of 70% on room air with tachypnea, requiring 4L NC O2. CXR consistent with CHF versus pneumonia. She was also found to have a lactic acidosis with a lactate of 7.0 which was likely from hypoxemia. Her weight is up 8-9 kg from 1 year ago, and she has significant peripheral edema on exam. She was hypertensive and tachycardic on arrival. She is admitted for acute respiratory failure with hypoxemia secondary to acute HFrEF #Acute respiratory failure with hypoxia/acute HFrEF/pneumonia ruled out/elevated troponin-seems more likely at this point that her respiratory failure and chest x-ray findings are from CHF w/ ECHO LVEF 20-25% with global hypokinesis and severe LVH. Doubtful that she has true pneumonia-no fevers or leukocytosis, procalcitonon neg. Troponin peaked at 72. No chest pain, with chronic LBBB on EKG but no definite ischemic changes. Elevated troponin could be from demand ischemia in the setting of severe LVH and CHF. Last echo 1 year prior with preserved EF. HFrEF likely from LBBB Has now diuresed quite a bit--> net negative 6.6L, weaned down to 1LNC O2, weight down. 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 twice daily for tachycardia and hypertension as part of guideline directed medical therapy for HFrEF - plan to add Entresto on 07/18 -plan to add SGLT2i and spironolactone in future as well if BPs can tolerate -if no improvement in EF after 90days on meds, would be candidate for ICD -Needs CHF clinic follow up/referral - Continue strict I's and O's, Bey catheter, daily weights, low-sodium diet - Follow BMP, magnesium in the morning keep electrolytes are replete-continue oral potassium supplement #DM2-with hyperglycemia now improving. HgbA1c here is elevated at 8.6% -cont NovoLog sliding scale -increase Lantus to 20 units at bedtime -Hold home metformin #Lactic acidosis-Lactate on admission 7.0, with follow-up 2.2. Likely secondary to hypoxemia and not septic shock #History of CVA/HTN/TIA-no acute issues except blood pressures elevated on admission--> now improved with diuresis and increasing Coreg - Continue home Plavix - Not on a statin for unclear reason - Increased carvedilol to 6.25 mg p.o. twice daily -adding Entresto and likely SGLT2i and spironolactone in future - Continue to diurese with Lasix #Dementia/depression/history of seizure-like activity- -Continue lamotrigine, paroxetine #GERD-no acute issues - Continue PPI #Hypothyroidism-TSH normal here -Continue levothyroxine home dose DVT prophylaxis-Lovenox SQ Disposition-continued stay in PCU. Called daughter on 07/16 and left a voicemail to discuss new onset heart failure. Will try again on 07/17. PT/OT consults recommend return to personal-snf on discharge Possible dc to [facility] in 1-2 days after further med adjustments Admission and Anticipated Discharge Date Admission Date: July 15, 2025 Subjective Pt denies SOB, CP. Has no complaints, pleasant. Discussed her care with Cardiology Tele with NSR rate 80s Physical Exam Constitutional: WD/WN, vitals as above + obese Respiratory: normal respiratory effort; no cough Auscultation: + diminished lung sounds (Bibasilar); no crackles, no rhonchi and no wheezes Cardiovascular: Rate/Rhythm: regular rate and regular rhythm Heart Sounds: no murmur Extremities: + edema (1+ pitting edema to the knees bilaterally, improved) Gastrointestinal (Abdomen): normal bowel sounds, soft, nontender, no hepatosplenomegaly Psychiatric: Orientation: alert, oriented to person, oriented to place (Only to "hospital") and cooperative Genitourinary: + abnormal external appearance (Bey ca theter in place draining clear yellow urine) Results & Data Results & Data Vital Signs (Past 12 Hours) Vital Signs Temp Pulse Pulse Resp BP Pulse Ox Pulse Ox 07/17/25 16:02 36.3 C L 82 18 119/70 95 07/17/25 15:00 83 07/17/25 14:05 92 07/17/25 14:04 91 07/17/25 10:57 36.8 C 75 18 105/65 95 07/17/25 08:00 81 07/17/25 08:00 07/17/25 07:29 36.8 C 87 16 116/66 93 O2 Del Method O2 Flow Rate O2 Flow Rate 07/17/25 16:02 Nasal Cannula 1 07/17/25 15:00 07/17/25 14:05 07/17/25 14:04 2 07/17/25 10:57 Nasal Cannula 2 07/17/25 08:00 07/17/25 08:00 Nasal Cannula 2 07/17/25 07:29 Nasal Cannula 2 Laboratory Results CBC, CMP, mag, procalcitonin,TSH, blood cxs reviewed PG Care Time/CCT Total # of Minutes Spent Total Time Spent with Patient: Total time spent is greater than 50% in coordination of care (as documented) at patient's floor/unit and/or counseling patient: Coding Level of Care Code 36773 SUB INP/OBS CARE 3/50MIN Diagnoses Acute respiratory failure with hypoxia J96.01 CHF exacerbation I50.9 Elevated lactic acid level R79.89
[2025-07-17] MEDS: LANTUS PER UNIT CHARGE SQ SCH (21:36)
--- NOTE | 2025-07-17 21:50 | Electrocardiogram Report ---
Test Reason : Blood Pressure : */* mmHG Vent. Rate : 84 BPM Atrial Rate : 84 BPM P-R Int : 198 ms QRS Dur : 152 ms QT Int : 444 ms P-R-T Axes : 33 -7 31 degrees QTcB Int : 524 ms Normal sinus rhythm Possible Left atrial enlargement Left bundle branch block Abnormal ECG When compared with ECG of 16-Jul-2025 06:01, No significant change was found Confirmed by Jovany Ngo ([id number]) on 07/17/2025 9:50:18 PM Referred By: REFERRED SELF Confirmed By: Jovany Ngo
[2025-07-18 06:38] LABS: Alanine Aminotransferase 10.0 U/L (7-52); Albumin Globulin Ratio 1.4 (0.9-2); Albumin Level 3.8 gm/dl (3.4-5.0); Alkaline Phosphatase 45.0 U/L (34-104); Anion Gap 9.0 (3-11); Bilirubin,Total 1.0 mg/dl (0.2-1.0); Blood Urea Nitrogen 20.0 mg/dl (6-23); Calcium 9.4 mg/dl (8.6-10.3); Carbon Dioxide 30.0 mmol/L (21-32); Chloride 99.0 mmol/L (98-107); Creatinine Clr Calc Pharmacy 41.6 ml/min; Globulin 2.7 gm/dl (2.5-4.0); Glucose 158.0 mg/dl (70-99(Fasting)); Magnesium 2.1 mg/dl (1.7-2.4); Potassium 3.4 mmol/L (3.5-5.1); Sodium 138.0 mmol/L (136-145); Total Protein 6.5 gm/dl (6.0-8.3)
[2025-07-18] MEDS: FUROSEMIDE 40 MG TAB PO SCH (09:04)
[2025-07-18 11:37] VITALS: RESP 18
--- NOTE | 2025-07-18 12:02 | Cardiology Progress Note ---
Date of Service July 18, 2025 Assessment & Plan (1) Nonischemic cardiomyopathy: (2) Acute HFrEF (heart failure with reduced ejection fraction): Plan 1. Cardiomyopathy: She has a severe cardiomyopathy, she has been on minimal medications due to hypotension. Hopefully we can keep her ejection fraction from dropping further although she seems to feel surprisingly well with this degree of dysfunction. Her carvedilol was increased slightly, her blood pressure runs low and I have not adjusted her medications today. Sometimes this works better if we do it very gradually and we will have her seen in our heart failure area to do this. 2. Congestive heart failure: She does not seem to be in congestive heart failure this morning although she does have some edema. Her creatinine is up a bit today which might indicate that we cannot diurese her much more without affecting kidney function. Admission and Anticipated Discharge Date Admission Date: July 15, 2025 Subjective Chart reviewed, patient interviewed and examined. She has significant dementia and cannot provide little meaningful history. She denies symptoms of lightheadedness, dizziness, chest discomfort or shortness of breath today. She just walked from the bed to her bedside chair using a walker and seemed to have no difficulty or complaints doing that. Physical Exam Physical Exam: Constitutional: Alert, cooperative and in no distress. She is pleasant but clearly demented. Pulmonary: Clear to auscultation bilaterally. Cardiac: Regular rhythm with no murmur, gallop or rub. Abdomen: Soft, nontender with normal bowel sounds. Extremities: +2 to +3 bilateral edema. Skin: No rash, ecchymoses or petechiae. Results & Data Vital Signs (Past 12 Hours) Vital Signs Temp Pulse Pulse Pulse Pulse Pulse Resp 07/18/25 11:36 36.7 C 78 18 07/18/25 11:21 94 H 90 86 07/18/25 09:48 75 07/18/25 07:25 36.6 C 77 18 07/18/25 03:07 36.6 C 80 16 Resp Resp Resp BP Pulse Ox Pulse Ox Pulse Ox 07/18/25 11:36 102/65 93 07/18/25 11:21 20 20 16 90 86 L 07/18/25 09:48 07/18/25 07:25 115/71 95 07/18/25 03:07 99/61 L 92 Pulse Ox O2 Del Method O2 Flow Rate O2 Flow Rate 07/18/25 11:36 Room Air 07/18/25 11:21 93 2 07/18/25 09:48 07/18/25 07:25 Nasal Cannula 2 07/18/25 03:07 Nasal Cannula 2 Laboratory Results Cardiac Enzymes 07/18/25 Range/Units 05:36 AST 15 (13-39) U/L Comprehensive Metabolic Panel 07/18/25 Range/Units 05:36 Sodium 138 (136-145) mmol/L Potassium 3.4 L (3.5-5.1) mmol/L Chloride 99 (98-107) mmol/L Carbon Dioxide 30 (21-32) mmol/L BUN 20 (6-23) mg/dl Creatinine 1.41 H (0.6-1.2) mg/dl Glucose 158 H (70-99(Fasting)) mg/dl Calcium 9.4 (8.6-10.3) mg/dl AST 15 (13-39) U/L ALT 10 (7-52) U/L Alkaline Phosphatase 45 (34-104) U/L Total Protein 6.5 (6.0-8.3) gm/dl Albumin 3.8 (3.4-5.0) gm/dl Intake and Output 07/17/25 07/18/25 07/18/25 22:59 06:59 14:59 Intake Total 250 / 1005 100 / 1005 Output Total 100 / 550 50 / 550 Balance 150 / 455 50 / 455 Intake: Oral 250 / 1005 100 / 1005 Output: Urine Amount (Catheter) 100 / 550 50 / 550 Bey/Indwelling 100 / 550 50 / 550 Other: Weight 118 kg Weight Measurement Method Built in [facility] Diagnostic Findings Telemetry: Sinus rhythm, rate in the 70s. PG Care Time/CCT Total # of Minutes Spent Total Time Spent with Patient: Total time spent is greater than 50% in coordination of care (as documented) at patient's floor/unit and/or counseling patient: Coding Level of Care Code 59969 SUB INP/OBS CARE 2/35MIN Diagnoses Nonischemic cardiomyopathy I42.8 Acute HFrEF (heart failure with reduced ejection fraction) I50.21
--- NOTE | 2025-07-18 13:11 | Hospitalist Progress Note ---
Date of Service July 18, 2025 Assessment & Plan (1) Acute respiratory failure with hypoxia: Plan: -2nd to CHF exacerbation (2) CHF exacerbation: Plan: Increased carvedilol to 6.25 mg p.o. twice daily for tachycardia and hypertension as part of guideline directed medical therapy for HFrEF Needs CHF clinic follow up/referral Cardiology consult appreciated (3) Diabetes: Plan: -hyperglycemia now improving. -cont NovoLog sliding scale -increase Lantus to 20 units at bedtime -Hold home metformin (4) Stroke: Plan: - Continue home Plavix - Not on a statin for unclear reason - Increased carvedilol to 6.25 mg p.o. twice daily -adding Entresto and likely SGLT2i and spironolactone in future - Continue to diurese with Lasix Plan This patient is an 79-year-old female with a H/o hypothyroidism, hypertension, LBBB, TAA, dementia, DM 2, syncope, recurrent urinary tract infections, CVA, hyperlipidemia, neuropathy, depression, and bilateral extremity edema who presented with confusion and was found to be hypoxic with a pulse ox of 70% on room air with tachypnea, requiring 4L NC O2. CXR consistent with CHF versus pneumonia. She was also found to have a lactic acidosis with a lactate of 7.0 which was likely from hypoxemia. Her weight is up 8-9 kg from 1 year ago, and she has significant peripheral edema on exam. She was hypertensive and tachycardic on arrival. She is admitted for acute respiratory failure with hypoxemia secondary to acute HFrEF D/C planning with home PT Admission and Anticipated Discharge Date Admission Date: July 15, 2025 Subjective No events overnight. Pt resting comfortably in bed. Review of Systems Review of Systems: CONST: Negative for fever, body aches and chills. HENT: Negative for neck pain/stiffness, headache, congestion, sore throat, swelling. EYES: Negative for discharge/pain or vision changes. RESP: Negative for cough/hemoptysis and shortness of breath. CV: Negative chest pain, difficulty breathing, palpitations. ABD: Negative pain, nausea, vomiting. : Negative increase frequency, dysuria, blood in urine or stool. MUSC: Negative for muscle aches, edema. SKIN: Negative rash, lesions/sores. NEURO: Negative headache, dizziness, weakness. Physical Exam Physical Exam: GENERAL APPEARANCE NAD, activity normal for age, well developed/ well nourished, no cyanosis, pallor, or diaphoresis. EYES lids/conjunctiva normal. EARS/NOSE/THROAT Mucous membranes moist, nares normal, lips/teeth normal uvula midline without oral pharyngeal erythema, exudate or swelling TMs normal bilaterally. No lymphangitis/lymphedema. HEAD/NECK normocephalic atraumatic, no facial trauma, neck is supple. RESPIRATORY respiratory effort normal, speaks in full sentences, no tripod position, no accessory muscle use. Lungs clear to auscultation without rhonchi, wheezes, rales CARDIAC Regular rate and rhythm, no edema. ABDOMINAL Soft, ND/NT. No evidence of fluid wave. No pulsatile masses on exam, rebound tenderness, Gaona sign or pain over Mcburney's point. MUSCLES/EXTREMITIES No abnormal range of motion, no swelling. SKIN Warm, pink and dry. No rashes, dermatoses, petechiae or lesions. NEUROLOGICAL Speech is clear and appropriate. Normal level of consciousness. Gait and coordination are normal. 5/5 strength in all extremities. PSYCH Normal mood and affect. Judgement/competence is appropriate Results & Data Results & Data Vital Signs (Past 12 Hours) Vital Signs Temp Pulse Pulse Pulse Pulse Pulse Resp 07/18/25 11:36 36.7 C 78 18 07/18/25 11:21 94 H 90 86 07/18/25 09:48 75 07/18/25 07:25 36.6 C 77 18 07/18/25 03:07 36.6 C 80 16 Resp Resp Resp BP Pulse Ox Pulse Ox Pulse Ox 07/18/25 11:36 102/65 93 07/18/25 11:21 20 20 16 90 86 L 07/18/25 09:48 07/18/25 07:25 115/71 95 07/18/25 03:07 99/61 L 92 Pulse Ox O2 Del Method O2 Flow Rate O2 Flow Rate 07/18/25 11:36 Room Air 07/18/25 11:21 93 2 07/18/25 09:48 07/18/25 07:25 Nasal Cannula 2 07/18/25 03:07 Nasal Cannula 2 PG Care Time/CCT Total # of Minutes Spent Total Time Spent with Patient: Total time spent is greater than 50% in coordination of care (as documented) at patient's floor/unit and/or counseling patient: Coding Level of Care Code 37889 SUB INP/OBS CARE 2MIN Diagnoses Acute respiratory failure with hypoxia J96.01 CHF exacerbation I50.9 Diabetes E11.9 Stroke I63.9
--- NOTE | 2025-07-18 15:20 | Discharge Summary ---
Discharge Summary Date of Service July 18, 2025 Principal Dx & Hospital Course #1 = Principal Diagnosis (1) Acute respiratory failure with hypoxia: -2nd to CHF exacerbation (2) CHF exacerbation: Increased carvedilol to 6.25 mg p.o. twice daily for tachycardia and hypertension as part of guideline directed medical therapy for HFrEF Needs CHF clinic follow up/referral Cardiology consult appreciated (3) Diabetes: -hyperglycemia now improving. -cont NovoLog sliding scale -increase Lantus to 20 units at bedtime -Hold home metformin (4) Stroke: - Continue home Plavix - Not on a statin for unclear reason - Increased carvedilol to 6.25 mg p.o. twice daily -adding Entresto and likely SGLT2i and spironolactone in future - Continue to diurese with Lasix Plan This patient is an 79-year-old female with a H/o hypothyroidism, hypertension, LBBB, TAA, dementia, DM 2, syncope, recurrent urinary tract infections, CVA, hyperlipidemia, neuropathy, depression, and bilateral extremity edema who presented with confusion and was found to be hypoxic with a pulse ox of 70% on room air with tachypnea, requiring 4L NC O2. CXR consistent with CHF versus pneumonia. She was also found to have a lactic acidosis with a lactate of 7.0 which was likely from hypoxemia. Her weight is up 8-9 kg from 1 year ago, and she has significant peripheral edema on exam. She was hypertensive and tachycardic on arrival. She is admitted for acute respiratory failure with hypoxemia secondary to acute HFrEF D/C planning with home PT Admission HPI Per Admitting Provider The patient is an 79-year-old female with a past medical history including hypothyroidism, hypertension, dementia, diabetes mellitus, syncope, encephalopathy, recurrent urinary tract infections, cerebrovascular disease, hyperlipidemia, ischemic cerebral stroke, neuropathy, depression, left bundle branch block, thoracic aortic aneurysm, and bilateral extremity edema. The patient brought to the emergency department via EMS, referred from her personal care center in [place], due to alteration of her baseline mental state, with concern regarding a possible UTI. Upon arrival to the emergency department, patient was noted to be hypoxic with an oxygen saturation of 70% on room air and appeared to be short of breath. She was titrated to 4 L l nasal cannula oxygen, with improvement of pulse ox to 94%. Chest x-ray performed revealed a combination of CHF and pneumonia. From the ED the patient received Nitropaste 2 inches to chest anterior chest wall, a Duoneb treatment, Lasix 80 mg IV, and cefepime 2 g IV, and magnesium 1 g IV. The patient is somewhat confused at baseline due to underlying dementia, is not able to contribute significantly to her review of systems or history of present illness. Discharge Exam GENERAL APPEARANCE NAD, activity normal for age, well developed/ well nourished, no cyanosis, pallor, or diaphoresis. EYES lids/conjunctiva normal. EARS/NOSE/THROAT Mucous membranes moist, nares normal, lips/teeth normal uvula midline without oral pharyngeal erythema, exudate or swelling TMs normal bilaterally. No lymphangitis/lymphedema. HEAD/NECK normocephalic atraumatic, no facial trauma, neck is supple. RESPIRATORY respiratory effort normal, speaks in full sentences, no tripod position, no accessory muscle use. Lungs clear to auscultation without rhonchi, wheezes, rales CARDIAC Regular rate and rhythm, no edema. ABDOMINAL Soft, ND/NT. No evidence of fluid wave. No pulsatile masses on exam, rebound tenderness, Gaona sign or pain over Mcburney's point. MUSCLES/EXTREMITIES No abnormal range of motion, no swelling. SKIN Warm, pink and dry. No rashes, dermatoses, petechiae or lesions. NEUROLOGICAL Speech is clear and appropriate. Normal level of consciousness. Gait and coordination are normal. 5/5 strength in all extremities. PSYCH Normal mood and affect. Judgement/competence is appropriate Discharge Plan Discharge Items Patient Disposition: Home - Self-Care Reason For Visit: ACUTE RESP FAILURE WITH HYPOXIA, CHF EX, PNEUMONIA Discharge Diagnosis: CHF Condition on Discharge: Serious Activity: Resume your previous activity Non-emergency contact: Primary Care Provider Call non-emergency contact if: you have any medication questions Follow-up/Referrals: Bonifacio Ibanez DO [Primary Care Provider] - Diet: Carb Consistent or DM2 Addtl Attending Provider Instructions: Follow up with cardiology in 2 weeks Pending Studies at Discharge: No Stand-Alone Forms: My [employer], Smoking Cessation Medications and DC Order Prescriptions: New carvedilol 6.25 mg Tablet 6.25 mg PO BID Qty: 60 0RF Continued diazepam [Valium] 5 mg tablet 5 mg PO .COMPLEX PRN (Reason: anxiety) Qty: 2 0RF Rx Instructions: 5 mg PO 1 hour prior to MRI, may repeat at time of MRI if needed PRN; paroxetine HCl 20 mg tablet 20 mg PO HS furosemide [Lasix] 40 mg tablet 40 mg PO .COMPLEX PRN (Reason: .EDEMA/WT GAIN) Qty: 90 3RF Rx Instructions: 40 mg orally Daily, take 80 mg as needed for 2 pound weight gain over 24 hours, 5 pound weight gain over 72 hours. Notify PCP if consistent weight gain over 5 days. lamotrigine 25 mg tablet 75 mg PO BID hydroxyzine HCl 25 mg tablet 25 mg PO BID PRN cranberry 10,000 mg tablet 10,000 mg PO DAILY acetaminophen 650 mg tablet extended release 650 mg PO .Q4 PRN (Reason: fever or pain) magnesium hydroxide [Milk of Magnesia] 400 mg/5 mL suspension 30 ml PO .q 3 days PRN (Reason: constipation) Mucinex DM 30-600 mg tablet extended release 12 hr 2 tab PO Q12H PRN (Reason: cough) dextromethorphan-guaifenesin 20-200 mg/5 mL elixir 10 ml PO Q6 PRN clopidogrel 75 mg Tablet 75 mg PO QAM Qty: 30 0RF metformin 1,000 mg tablet 1,000 mg PO QAM cholecalciferol (vitamin D3) [Vitamin D3] 25 mcg (1,000 unit) Capsule 25 mcg PO QAM multivit with min-folic acid [Adult Multivitamin Gummies] 200 mcg Tablet,Chewable 1 tab PO QAM levothyroxine [Synthroid] 25 mcg tablet 25 mcg PO DAILYBB Rx Instructions: for underactive thyroid gland loperamide 2 mg capsule 2 mg PO UD MDD 8mg/24hrs PRN (Reason: Diarrhea) Rx Instructions: 1 capsule after each additional loose stool omeprazole 40 mg capsule,delayed release(DR/EC) 40 mg PO DAILYBB insulin glargine [Lantus Solostar U-100 Insulin] 100 unit/mL (3 mL) insulin pen 10 unit SUBCUT HS Lubriderm Daily Moisture Lotion 1 applic TOPICAL BID diclofenac sodium 1 % gel 2 g topical QID PRN (Reason: Pain) acetaminophen [Tylenol] 325 mg Tablet 650 mg PO Q4 PRN (Reason: Fever Or Pain) potassium chloride 20 mEq Tablet Extended Release 20 meq PO DAILY PRN (Reason: .When lasix is given) ferrous sulfate 325 mg (65 mg iron) Tablet,Delayed Release (Dr/Ec) 325 mg PO Q48H Qty: 20 0RF cyanocobalamin (vitamin B-12) 500 mcg Tablet 500 mcg PO QAM Qty: 30 0RF Discontinued carvedilol 3.125 mg tablet 3.125 mg PO BID Rx Instructions: must administer with a meal/food Discharge Orders: Discharge Order (Routine); Ordered 07/18/25 Ordered By: Jak White Admission Data Admit Date/Time: 07/15/25 21:53 Attending Provider: Jak White Admit Provider: Jon Eagle Primary Care Provider: Bonifacio Ibanez Other Providers: Jon Eagle; Jovany Ngo; Alyssa Rader; [facility] Hospital Stay Data Consultations 07/15/25 19:46 ED Decision to Admit Stat 07/16/25 17:15 Consult Cardiology Routine 07/17/25 11:25 [facility] CHF Program Referral Routine Pending Results Patient Have Any Pending Studies at Discharge: No Discharge Instructions Given to Patient (Per Discharging Provider) Follow up with cardiology in 2 weeks Total Time Total Time Spent Total Time Spent (In Minutes): 50 Coding Level of Care Code 80703 INP/OBS DISCH >30 MIN Diagnoses Acute respiratory failure with hypoxia J96.01 CHF exacerbation I50.9 Diabetes E11.9 Stroke I63.9
[2025-07-18 15:31] VITALS: BP 125/82; PULSE 77; TEMP 97.9; O2SAT 94
== END 2025-07-18 16:29 | disposition home or self-care (01) | DRG 291 ==
LOC: ED 17:55 → SUATTDRO 21:53 → 4W 21:53

== ENCOUNTER 2025-08-08 10:15 | Observation (INO) ==
--- NOTE | 2025-08-08 10:30 | Emergency Department Note ---
Impression & Plan Unresponsive episode, Cerebrovascular disease, CHF (congestive heart failure), Elevated troponin, Seizure disorder ED Provider Note NAME: ANTONIO BILL AGE: 79 SEX: F : 1945 ARRIVES VIA: Ambulance INFORMANT: Patient ED PROVIDER(S): Efra Saldana MD CHIEF COMPLAINT: Unresponsive episode PLAN: Disposition: Admit MEDICAL DECISION MAKING: The patient is a 79-year-old woman with past medical history of dementia, cardiomyopathy with EF of 20-25%, chronic hypoxic respiratory failure on home oxygen, hypothyroidism, history of prior stroke who presents to the emergency department from her [facility] facility in [facility] where the patient was having another episode of unresponsiveness in the setting of admission to this facility from 08/01-08/03 for similar episode where EEG demonstrated left temporal seizure focus and so patient's Lamictal was increased. Family of the patient were contacted and requested transfer to this facility. EMS reports the patient was otherwise protecting her airway throughout their encounter and had unremarkable vital signs. BSG was in the 300s. On evaluation the patient is no distress, afebrile blood pressure 150/110s and vital signs otherwise stable. She exhibits normal respiratory effort and protection of her airway. When opening her eyelids she will initially track with her eyes but then attempt to close them deliberately against resistance. EKG demonstrates left bundle branch block without Sgarbossa criteria and similar to prior and otherwise without overt acute ischemia. CXR demonstrates stable interstitial prominence per my personal preliminary review/interpretation. WBC, H/H and platelets within normal limits. Chemistry without metabolic acidosis. Electrolytes with magnesium 1.6 with ibuprofen provided and otherwise unremarkable. LFTs unremarkable. High-sensitivity troponin 15.0, with repeat 21.7 mildly above normal, similar to prior and nonspecific. Lipase is normal. TSH 5.5, with free T4 within normal limits. UA without evidence of infection. CT of the head and CT of the head and neck were performed and were negative for ICH or acute ischemia. Chronic changes are noted including right temporal parietal, left parietal and bilateral cerebellar encephalomalacia consistent with remote infarcts. No large vessel occlusion. Upon reevaluation patient had spontaneous return to baseline was alert and oriented to self and place aware that she was in the hospital. Grandson was at the bedside. Given her episode today was similar to her recent admission suspected be related to seizure we discussed option for neurology consultation for medication adjustment and discharged back to her facility versus admission for observation. Patient's grandson did contact the patient's daughter who did prefer admission for observation at this time. Case was discussed with Dr. Odonnell [facility] hospitalist, who will evaluate the patient for admission. Further management per admitting team. Triage Nursing notes reviewed and agree them. Prior/external medical records reviewed Vital Signs: reviewed Differential diagnosis: Infection, dehydration, metabolic abnormality, hypo/hyperglycemia, electrolyte disturbance, anemia, hypoxia, cardiac sources, intracerebral event, toxicologic, neurologic, as well as other pathologies. ER treatment provided: See below. Diagnostics interpreted by me: ECG: Sinus rhythm with first-degree block, 83 bpm, left bundle branch block, no Sgarbossa criteria, QTc 507, QRS 154. Similar to prior. Cardiac Monitoring: An order for continuous cardiac monitoring was placed and demonstrated Sinus rhythm with first-degree block, 83 bpm, no ectopy. Laboratory studies: See below Imaging studies: See below Consultation(s): Dr. Odonnell [facility] hospitalist HPI: Per MDM. ROS: See above HPI for pertinent positives & negatives. A total of 10 systems reviewed and were otherwise negative. VITALS:See Below PHYSICAL EXAMINATION: GENERAL: Unresponsive but maintaining airway with normal respiratory effort. Will close eyes against resistance. In no distress HENT: Normocephalic, atraumatic. Oropharynx unremarkable. EYES: Normal conjunctiva. Sclera non-icteric. EOMI. No nystamgus. PEARRL. NECK: Supple. No nuchal rigidity. FROM. No JVD. RESPIRATORY: Clear to auscultation. CARDIAC: Regular rate, normal rhythm. Extremities warm and well perfused. Pulses equal. ABDOMEN: Soft, non-distended. No tenderness to palpation. No rebound or guarding. No masses. MUSCULOSKELETAL: Chest examination reveals no tenderness. The back is symmetrical on inspection without obvious abnormality. There is no CVA tenderness to palpation. No joint edema. LOWER EXTREMITIES: Calves are equal size bilaterally and non-tender. No edema. No discoloration. NEURO: Exhibits normal respiratory effort and protection of her airway. When opening her eyelids she will initially track with her eyes but then attempt to close them deliberately against resistance. Upon return to baseline we did not extremities equally without focal weakness. SKIN: No rash or jaundice noted. Efra Saldana MD Past Med/Surg History Problem List (Updated 08/08/25 @ 23:58 by Efra Saldana MD) Seizure disorder (Acute) HFrEF (heart failure with reduced ejection fraction) Cardiomyopathy Acute hypokalemia (Acute) Hypomagnesemia (Acute) Episode of unresponsiveness (Acute) Elevated troponin (Acute) Acute HFrEF (heart failure with reduced ejection fraction) CHF exacerbation Multifocal pneumonia Acute respiratory failure with hypoxia Hypomagnesemia (Acute) Elevated lactic acid level (Acute) Acute confusion (Acute) Hypoxia (Acute) CHF (congestive heart failure) (Acute) Acute respiratory distress (Acute) Left knee pain Episode of unresponsiveness (Acute) Anemia (Acute) AMS (altered mental status) (Acute) Unresponsive episode Syncope Dehydration Encephalopathy Elevated lactic acid level (Acute) Acute UTI (Acute) Sepsis (Acute) UTI (urinary tract infection) (Acute) Discussion about advance care planning held with family member Palliative care by specialist Confusion Cerebrovascular disease (Acute) UTI (urinary tract infection), uncomplicated Generalized weakness Gait apraxia Stroke 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 Fatigue Hypomagnesemia (Acute) Bladder spasms Confusion and disorientation Seizure-like activity Hypotension Leg swelling AMS (altered mental status) (Acute) Acute hypotension (Acute) Elevated lactic acid level (Acute) SKY (acute kidney injury) Acute metabolic encephalopathy Morbid obesity Prolonged PTT Cerebrovascular disease Abnormal brain MRI Bilateral leg edema Medical History Nonobstructive atherosclerosis of coronary artery Thoracic aortic aneurysm LBBB (left bundle branch block) Depression Infarction of kidney Neuropathy GERD (gastroesophageal reflux disease) HLD (hyperlipidemia) Ascending aorta dilatation Recurrent UTI (urinary tract infection) Diabetes Dementia HTN (hypertension) Hypothyroidism H/O: stroke Nonischemic cardiomyopathy Seizure, late effect of stroke Strain of rotator cuff of right shoulder No pertinent family history Surgical History S/P colonoscopy S/P hysterectomy S/P appendectomy History of back surgery Status post right knee replacement No pertinent past surgical history Family History Mother Heart disease Dementia Father Lung cancer Social History Smoking Status: Never smoker Second Hand Exposure: No; Do You Dip or Chew Tobacco: No; Hx Alcohol Use: No Hx Substance Use: No Preferred Language: [place] Communication Ability: Effective Communication Ability Comment: confused, but clear Visual Impairment: No Limitations Hearing Ability: Normal Medical Scientific Liaison Required: No Beliefs That Will Affect Care: None marital status: / Current Living Situation: Personal Care Facility Current Living Situation Comment: [facility] current occupational status: retired 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 How many Children do You have: 4 Feels Safe at Home: Yes Childhood Exposure to Second-Hand Smoke: No Diet: diabetic Dental Care, Regularly: No Physical Activity Frequency: Does not Exercise Seatbelt Use: always Sunscreen Use: No Assistive Devices: Denture - Upper, Denture - Lower, Oxygen - Continuous and Walker Allergies Allergies Allergy/AdvReac Type Severity Reaction Status Date / Time aspirin Allergy Severe Hives Verified 07/25/25 10:41 NSAIDS (Non-Steroidal Allergy Intermediate Hives Verified 07/25/25 10:41 Anti-Inflamma Penicillins Allergy Intermediate Hives Verified 07/25/25 10:41 vancomycin Allergy Intermediate Redness of Verified 07/25/25 10:41 Skin fenofibrate Allergy Unknown ON PT MED Verified 07/25/25 10:41 LIST naproxen Allergy Unknown Unknown - Verified 07/25/25 10:41 On Med List from [facility] propoxyphene Allergy Unknown ON PT MED Verified 07/25/25 10:41 LIST Home Meds Home Medications Medication Instructions Recorded Confirmed paroxetine HCl 20 mg tablet 20 mg PO HS 01/29/22 08/08/25 cholecalciferol (vitamin D3) 25 25 mcg PO QAM 03/17/23 08/08/25 mcg (1,000 unit) capsule (Vitamin D3) levothyroxine 25 mcg tablet 25 mcg PO DAILYBB 03/17/23 08/08/25 (Synthroid) diclofenac sodium 1 % topical gel 2 g topical QID PRN Pain 02/05/24 08/08/25 emollient combination no.92 1 applic topical BID Dry skin - 02/05/24 08/08/25 (Lubriderm Daily Moisture lotion) Legs loperamide 2 mg capsule 2 mg PO UD PRN Diarrhea 02/05/24 08/08/25 omeprazole 40 mg capsule,delayed 40 mg PO DAILYBB 02/05/24 08/08/25 release potassium chloride 20 mEq 20 meq PO DAILY PRN .When lasix is 06/01/24 08/08/25 tablet,extended release given acetaminophen 650 mg 650 mg PO .Q4 PRN fever or pain 01/25/25 08/08/25 tablet,extended release cranberry 30,000 mg PO DAILY Chronic UTI 01/25/25 08/08/25 dextromethorphan-guaifenesin 20 10 ml PO Q6 PRN Cough 01/25/25 08/08/25 mg-200 mg/5 mL oral elixir dextromethorphan-guaifenesin 30 2 tab PO Q12H PRN cough 01/25/25 08/08/25 mg-600 mg tablet extended [id number] hr (Mucinex DM) hydroxyzine HCl 10 mg tablet 10 mg PO Q6H PRN Anxiety 07/19/25 08/08/25 insulin glargine 100 unit/mL (3 18 unit subcut HS 07/19/25 08/08/25 mL) subcutaneous pen (Lantus Solostar U-100 Insulin) metformin 1,000 mg tablet 1,000 mg PO BID 07/19/25 08/08/25 furosemide 40 mg tablet (Lasix) 80 mg PO DAILY PRN .EDEMA/WT GAIN 08/08/25 08/08/25 multivitamin 1 tab PO DAILY 08/08/25 08/08/25 Previous Rx's Medication Instructions Recorded clopidogrel 75 mg tablet 75 mg PO QAM #30 tabs 04/28/23 ferrous sulfate 325 mg (65 mg 325 mg PO Q48H #20 tabs 06/10/24 iron) tablet,delayed release carvedilol 6.25 mg tablet 6.25 mg PO BID #60 tabs 07/18/25 cyanocobalamin (vitamin B-12) 500 1,000 mcg (2 x 500 mcg) PO QAM #60 08/03/25 mcg tablet tabs lamotrigine 100 mg tablet 100 mg PO BID #60 tabs 08/03/25 Results & Data (ED) Vital Signs Vital Signs - 24 hr 08/08/25 10:20 08/08/25 10:27 08/08/25 10:30 Temperature 36.8 C Temperature Source Temporal Artery Scan Pulse Rate 85 86 87 Pulse Rate [Apical] Pulse Rate from SpO2 Sensor 87 Respiratory Rate 22 23 Respiratory Effort / Characteristics Non-Labored Spontaneous Respiratory Depth Normal Respiratory Pattern Regular Blood Pressure 158/113 H 147/97 H Blood Pressure [Right Arm] Blood Pressure Mean 128 113 Blood Pressure Mean [Right Arm] Pulse Oximetry 95 94 Oxygen Delivery Method Nasal Cannula Nasal Cannula Oxygen Flow Rate 2 2 Sepsis Recent Fever Within 48 Hours No Sepsis New/Unexplained Change in Mental Status No Sepsis Action Taken by Nursing No Action Required 08/08/25 11:08 08/08/25 11:08 08/08/25 11:36 Temperature Temperature Source Pulse Rate Pulse Rate [Apical] 87 87 Pulse Rate from SpO2 Sensor Respiratory Rate 22 21 Respiratory Effort / Characteristics Respiratory Depth Respiratory Pattern Blood Pressure Blood Pressure [Right Arm] 160/98 H 150/107 H Blood Pressure Mean Blood Pressure Mean [Right Arm] 118 121 Pulse Oximetry 97 97 98 Oxygen Delivery Method Nasal Cannula Nasal Cannula Oxygen Flow Rate 3 3 Sepsis Recent Fever Within 48 Hours Sepsis New/Unexplained Change in Mental Status Sepsis Action Taken by Nursing 08/08/25 11:40 08/08/25 12:00 Temperature Temperature Source Pulse Rate Pulse Rate [Apical] 86 81 Pulse Rate from SpO2 Sensor Respiratory Rate 20 20 Respiratory Effort / Characteristics Respiratory Depth Respiratory Pattern Blood Pressure Blood Pressure [Right Arm] 147/91 H Blood Pressure Mean Blood Pressure Mean [Right Arm] 109 Pulse Oximetry 98 98 Oxygen Delivery Method Nasal Cannula Nasal Cannula Oxygen Flow Rate 3 3 Sepsis Recent Fever Within 48 Hours Sepsis New/Unexplained Change in Mental Status Sepsis Action Taken by Nursing Laboratory Data Attestation: I reviewed the patient's lab results. 08/08/25 10:43 08/08/25 10:43 Lab Results 08/08/25 08/08/25 08/08/25 Range/Units 10:29 10:43 10:45 WBC 5.91 (4.8-10.8) K/ul RBC 4.56 (4.20-5.40) M/uL Hgb 14.5 (12.0-16.0) g/dl POC Hgb 15.3 (12.0-16.0) g/dl Hct 44.1 (37.0-47.0) % POC Hct 45 (37-47) % MCV 96.7 (80.0-100.0) fL MCH 31.8 (25.0-34.0) pg MCHC 32.9 (32.0-36.0) g/dL RDW Std Deviation 44.9 (36.4-46.3) fL RDW Coeff of Sam 12.6 (11.5-14.5) % Plt Count 204 (130-400) K/uL MPV 10.1 (9.4-12.4) fL Immature Gran % (Auto) 0.2 % Neut % (Auto) 43.0 % Lymph % (Auto) 37.1 % Lyman % (Auto) 12.2 % Eos % (Auto) 6.1 % Baso % (Auto) 1.4 % Neut # (Auto) 2.55 (1.40-6.50) K/uL Lymph # (Auto) 2.19 (1.20-3.40) K/uL Lyman # (Auto) 0.72 H (0.11-0.59) K/uL Eos # (Auto) 0.36 (0.00-0.50) K/uL Baso # (Auto) 0.08 (0.00-0.20) K/uL Immature Gran # (Auto) 0.01 (0.01-0.20) K/uL POC Sodium 138 (135-144) mmol/L Sodium 139 (136-145) mmol/L POC Potassium 3.6 (3.3-5.0) mmol/L Potassium 3.6 (3.5-5.1) mmol/L POC Chloride 99 L (101-112) mmol/L Chloride 99 (98-107) mmol/L Carbon Dioxide 27 (21-32) mmol/L POC Total CO2 26 (24-31) mmol/L Anion Gap 13 H (3-11) POC Anion Gap 18.0 (16-25) mmol/L POC BUN 13 (7-18) mg/dl BUN 13 (6-23) mg/dl Creatinine 1.14 (0.6-1.2) mg/dl POC Creatinine 1.3 (0.6-1.3) mg/dl Est Cr Clr Drug Dosing 55.2 ml/min eGFR 48.36 BUN/Creatinine Ratio 11.4 (10-20) Glucose 244 H (70-99(Fasting)) mg/dl POC Glucose (other) 247 H (70-99) mg/dl Calcium 10.0 (8.6-10.3) mg/dl POC Ioniz Calcium Gudelia 1.19 (1.12-1.32) mmol/l Phosphorus 3.1 (2.5-4.9) mg/dl Magnesium 1.6 L (1.7-2.4) mg/dl Total Bilirubin 0.7 (0.2-1.0) mg/dl AST 17 (13-39) U/L ALT 14 (7-52) U/L Alkaline Phosphatase 52 (34-104) U/L Total Creatine Kinase 43 (26-192) U/L Troponin I High Sens 15.0 H (0-14) pg/ml Total Protein 7.2 (6.0-8.3) gm/dl Albumin 4.0 (3.4-5.0) gm/dl Globulin 3.2 (2.5-4.0) gm/dl Albumin/Globulin Ratio 1.3 (0.9-2) Lipase 50 (11-82) U/L TSH 5.587 H (0.300-4.500) uIu/ml Free T4 0.89 (0.61-1.60) ng/dl Urine Color Yellow Urine Appearance Clear (Clear) Urine pH 6.0 (4.5-7.5) Ur Specific [facility] 1.008 (1.000-1.030) Urine Protein Negative (Negative) Urine Glucose (UA) Trace H (Negative) Urine Ketones Negative (Negative) Urine Blood Negative (Negative) Urine Nitrite Negative (Negative) Urine Bilirubin Negative (Negative) Urine Urobilinogen Negative (Negative) Ur Leukocyte Esterase Negative (Negative) Urine Comment Administered Medications Carvedilol (Carvedilol 6.25 Mg Tab) 6.25 mg PO BIDM ROSANNA Stop: 09/07/25 16:59 Last Admin: 08/08/25 17:19 Dose: 6.25 mg Documented By: AVA Insulin Aspart (Insulin Aspart Per Unit Charge) 0 units SC ACHS ROSANNA Stop: 09/07/25 16:29 Last Admin: 08/08/25 20:46 Dose: Not Given Documented By: Admin: 08/08/25 17:19 Dose: 8 units Documented By: AVA Co-signed By: OS Insulin Glargine (Lantus Per Unit Charge) 18 units SC HS [facility] Stop: 09/07/25 20:59 Last Admin: 08/08/25 20:46 Dose: 18 units Documented By: ALCIRA Co-signed By: JEFFERSON Lamotrigine (Lamotrigine 100 Mg Tab) 100 mg PO BID ROSANNA; Protocol Stop: 09/07/25 20:59 Last Admin: 08/08/25 20:46 Dose: 100 mg Documented By: CR Lamotrigine (Lamotrigine 25 Mg Tab) 50 mg PO BID ROSANNA; Protocol Stop: 09/07/25 20:59 Last Admin: 08/08/25 20:46 Dose: 50 mg Documented By: CR Paroxetine HCl (Paroxetine Hcl 20 Mg Tab) 20 mg PO HS ROSANNA Stop: 09/07/25 20:59 Last Admin: 08/08/25 20:46 Dose: 20 mg Documented By: ALCIRA Discontinued Medications Magnesium Sulfate/Dextrose (Magnesium Sulfate / D5w) 1 gm in 100 mls @ 100 mls/hr IV NOW STA Stop: 08/08/25 13:27 Last Infusion: 08/08/25 13:42 Dose: Infused Documented By: Admin: 08/08/25 12:30 Dose: 100 mls/hr Documented By: OANH Ioversol (Optiray 320 125ml) 119 ml IV ONCE ONE Stop: 08/08/25 11:10 Last Admin: 08/08/25 11:10 Dose: 119 ml Documented By: OSCAR Imaging Data Radiologist's Impression: Chest X-Ray 08/08/25 10:24 XR chest 1V portable CLINICAL HISTORY: Chest pain, nonspecific COMPARISON STUDY: 08/01/2025 FINDINGS: Stable cardiomegaly with pulmonary vascular congestion. Stable diffuse pulmonary interstitial prominence. Stable mild elevation of the right hemidiaphragm. Evaluation of the left lung base is limited. No other consolidation or pleural effusion seen. No pneumothorax. IMPRESSION: Stable CHF. ACT 112: Negative or not required by law. Electronically signed by: Milad Unger M.D. 08/08/2025 11:[address] 08/08/25 10:27 CT SCAN OF THE BRAIN WITHOUT IV CONTRAST CLINICAL HISTORY: Change in mental status. COMPARISON STUDY: CT and MRI of the brain dated 08/01/2025. TECHNIQUE: Unenhanced CT scan of the brain is performed from the vertex to the skull base. Images are reviewed in the axial, sagittal, coronal planes. A dose lowering technique was utilized adhering to the principles of ALARA. CT DOSE: 1063.73 mGy.cm FINDINGS: Brain parenchyma: Foci of right temporoparietal, left parietal, and bilateral cerebellar encephalomalacia are consistent with remote infarcts. There is age- related involutional change noting moderate subcortical and periventricular microangiopathic disease. There is no hemorrhage, mass effect, or evidence of acute territorial ischemia by CT criteria. Dominguez-white matter differentiation is preserved. No extra-axial fluid collection is seen. Ventricles, sulci, cisterns: Prominent secondary to involutional change. Intracranial vasculature: There is atherosclerotic calcification of the cavernous carotid and vertebral arteries. Calvarium: Unremarkable. Sinuses and mastoids: The visualized paranasal sinuses are clear. The mastoid air cells are well pneumatized. Cerumen is noted in the external auditory canals. Orbits: The bony orbits are grossly intact. IMPRESSION: Chronic changes as above with no hemorrhage, mass effect, or evidence of acute territorial ischemia by CT criteria. ACT 112: Negative or not required by law. Electronically signed by: Karri Salas M.D. 08/08/2025 11:25 AM Head CTA 08/08/25 10:27 CTA ANGIOGRAPHY OF THE HEAD CLINICAL HISTORY: Altered mental status. COMPARISON STUDY: MRI of the brain August 01, 2025. CTA of the head June 08, 2024. TECHNIQUE: Helical axial images of the head were obtained following uneventful intravenous administration of 119 cc of Optiray. Sagittal and coronal reconstructions were viewed as well as maximal intensity projections on an independent 3-D workstation. Automated exposure control was utilized for the study. A dose lowering technique was utilized adhering to the principles of ALARA. FINDINGS: Please note that the head CT will be reported separately. No acute intracranial hemorrhage, midline shift or mass effect is present. Ventricular system is unremarkable. Basal cisterns are patent. There are no extra axial collections. Old infarcts within the bilateral cerebellar hemispheres as well as the posterior right frontal lobe and left parietal lobes are unchanged. The bilateral M1, M2, A1 and A2 segments are patent. The posterior circulation is intact. There is no intracranial aneurysm. There is moderate calcified plaque within the right cavernous carotid and mild calcified plaque within the left cavernous carotid without significant stenosis. No intracranial aneurysm. IMPRESSION: 1. No large vessel occlusion. No intracranial aneurysm. 2. Multiple old infarcts better depicted on the noncontrast head CT will be reported separately. ACT 112: Negative or not required by law. Electronically signed by: Dioni Manzo M.D. 08/08/2025 11:34 AM Neck CTA 08/08/25 10:27 CT angio neck with con CLINICAL HISTORY: 79 years-old Female with ams. Acutely altered mental status COMPARISON STUDY: CTA head of same day, CTA neck 06/08/2024 TECHNIQUE: Following the IV administration of 119 mL of Optiray, CT angiogram of the neck was performed from the aortic arch to the skull base. Images are reviewed in the axial, sagittal, and coronal planes. 3-D MIPS images are created and assessed. IV contrast was administered without complication. All measurements were calculated based on NASCET criteria. A dose lowering technique was utilized adhering to the principles of ALARA. FINDINGS: Cardiomegaly. Three-vessel morphology of the thoracic aortic arch. There is patency of the innominate and imaged subclavian arteries. The common carotid arteries are widely patent. Mild atherosclerosis of the carotid bulbs without significant stenosis. Vertebral arteries are patent bilaterally. No aneurysm, dissection, high-grade stenosis or arterial occlusion. Chronic cerebellar infarcts are redemonstrated. CTA head dictated separately. Intralobular septal thickening with mild ill-defined groundglass densities of the lungs which may represent atelectasis. Degenerative changes of the spine. No acute fracture identified. IMPRESSION:No aneurysm, dissection, high-grade stenosis or arterial occlusion. ACT 112: Negative or not required by law. The above report was generated using voice recognition software. It may contain grammatical, syntax or spelling errors. Electronically signed by: Noah Fletcher M.D. 08/08/2025 11:36 AM Discharge Plan Visit Data Chief Complaint: Unresponsive Stated Complaint: UNRESPONSIVE ED Provider: Efra Saldana Discharge Problem: Unresponsive episode, Cerebrovascular disease, CHF (congestive heart failure), Elevated troponin, Seizure disorder Patient Disposition: Admitted As Inpatient Condition: Fair Discharge Instructions Interventions: ED Discharge Assessment Last Done: 08/08/25 14:13 Discharge Problem: CHF (congestive heart failure) Qualifiers: Heart failure type: unspecified Heart failure chronicity: chronic Qualified Code(s): I50.9 - Heart failure, unspecified
[2025-08-08 10:58] LABS: Appearance Urine Clear (Clear); Glucose Urine UA Trace (Negative)
--- NOTE | 2025-08-08 11:03 | XRay Report ---
XR chest 1V portable CLINICAL HISTORY: Chest pain, nonspecific COMPARISON STUDY: 08/01/2025 FINDINGS: Stable cardiomegaly with pulmonary vascular congestion. Stable diffuse pulmonary interstiti al prominence. Stable mild elevation of the right hemidiaphragm. Evaluation of the left lung base is limited. No other consolidation or pleural effusion seen. No pneumothorax. IMPRESSION: Stable CHF. ACT 112: Negative or not required by law. Electronically signed by: Milad Unger M.D. 08/08/2025 11:02 AM
[2025-08-08] MEDS: OPTIRAY 320 125ml IV ONE (11:10)
[2025-08-08 11:22] LABS: Hematocrit (blood only) 44.1 % (37.0-47.0); Hemoglobin 14.5 g/dl (12.0-16.0); Immature Granulocytes # (auto) 0.01 K/uL (0.01-0.20); Immature Granulocytes % (auto) 0.2 %; Mean Corpuscular Hemoglobin 31.8 pg (25.0-34.0); Mean Corpuscular Volume 96.7 fL (80.0-100.0); Platelet Count 204 K/uL (130-400); RDW Standard Deviation 44.9 fL (36.4-46.3); Red Blood Count 4.56 M/uL (4.20-5.40); White Blood Count 5.91 K/ul (4.8-10.8)
--- NOTE | 2025-08-08 11:27 | CT Scan Report ---
CT SCAN OF THE BRAIN WITHOUT IV CONTRAST CLINICAL HISTORY: Change in mental status. COMPARISON STUDY: CT and MRI of the brain dated 08/01/2025. TECHNIQUE: Unenhanced CT scan of the brain is performed from the vertex to the skull base. Images are reviewed in the axial, sagittal, coronal planes. A dose lowering technique was utilized adhering to the principles of ALARA. CT DOSE: 1063.73 mGy.cm FINDINGS: Brain parenchyma: Foci of right temporoparietal, left parietal, and bilateral cerebellar encephalomal acia are consistent with remote infarcts. There is age-related involutional change noting moderate trent bcortical and periventricular microangiopathic disease. There is no hemorrhage, mass effect, or evide nce of acute territorial ischemia by CT criteria. Dominguez-white matter differentiation is preserved. No extra-axial fluid collection is seen. Ventricles, sulci, cisterns: Prominent secondary to involutional change. Intracranial vasculature: There is atherosclerotic calcification of the cavernous carotid and vertebr al arteries. Calvarium: Unremarkable. Sinuses and mastoids: The visualized paranasal sinuses are clear. The mastoid air cells are well pneu matized. Cerumen is noted in the external auditory canals. Orbits: The bony orbits are grossly intact. IMPRESSION: Chronic changes as above with no hemorrhage, mass effect, or evidence of acute territoria l ischemia by CT criteria. ACT 112: Negative or not required by law. Electronically signed by: Karri Salas M.D. 08/08/2025 11:25 AM
--- NOTE | 2025-08-08 11:35 | CT Scan Report ---
CTA ANGIOGRAPHY OF THE HEAD CLINICAL HISTORY: Altered mental status. COMPARISON STUDY: MRI of the brain August 01, 2025. CTA of the head June 08, 2024. TECHNIQUE: Helical axial images of the head were obtained following uneventful intravenous administr ation of 119 cc of Optiray. Sagittal and coronal reconstructions were viewed as well as maximal inten sity projections on an independent 3-D workstation. Automated exposure control was utilized for the study. A dose lowering technique was utilized adhering to the principles of ALARA. FINDINGS: Please note that the head CT will be reported separately. No acute intracranial hemorrhage, midline shift or mass effect is present. Ventricular system is unremarkable. Basal cisterns are bonilla nt. There are no extra axial collections. Old infarcts within the bilateral cerebellar hemispheres as well as the posterior right frontal lobe and left parietal lobes are unchanged. The bilateral M1, M2 , A1 and A2 segments are patent. The posterior circulation is intact. There is no intracranial aneury sm. There is moderate calcified plaque within the right cavernous carotid and mild calcified plaque w ithin the left cavernous carotid without significant stenosis. No intracranial aneurysm. IMPRESSION: 1. No large vessel occlusion. No intracranial aneurysm. 2. Multiple old infarcts better depicted on the noncontrast head CT will be reported separately. ACT 112: Negative or not required by law. Electronically signed by: Dioni Manzo M.D. 08/08/2025 11:34 AM
--- NOTE | 2025-08-08 11:37 | CT Scan Report ---
CT angio neck with con CLINICAL HISTORY: 79 years-old Female with ams. Acutely altered mental status COMPARISON STUDY: CTA head of same day, CTA neck 06/08/2024 TECHNIQUE: Following the IV administration of 119 mL of Optiray, CT angiogram of the neck was perform ed from the aortic arch to the skull base. Images are reviewed in the axial, sagittal, and coronal pl anes. 3-D MIPS images are created and assessed. IV contrast was administered without complication. Al l measurements were calculated based on NASCET criteria. A dose lowering technique was utilized adhe ring to the principles of ALARA. FINDINGS: Cardiomegaly. Three-vessel morphology of the thoracic aortic arch. There is patency of the innominate and imaged subclavian arteries. The common carotid arteries are widely patent. Mild atherosclerosis of the carotid bulbs without significant stenosis. Vertebral arteries are patent bilaterally. No aneu rysm, dissection, high-grade stenosis or arterial occlusion. Chronic cerebellar infarcts are redemons trated. CTA head dictated separately. Intralobular septal thickening with mild ill-defined groundglass densities of the lungs which may rep resent atelectasis. Degenerative changes of the spine. No acute fracture identified. IMPRESSION:No aneurysm, dissection, high-grade stenosis or arterial occlusion. ACT 112: Negative or not required by law. The above report was generated using voice recognition software. It may contain grammatical, syntax o r spelling errors. Electronically signed by: Noah Fletcher M.D. 08/08/2025 11:36 AM
[2025-08-08 11:45] LABS: Alanine Aminotransferase 14.0 U/L (7-52); Albumin Level 4.0 gm/dl (3.4-5.0); Alkaline Phosphatase 52.0 U/L (34-104); Anion Gap 13.0 (3-11); Bilirubin,Total 0.7 mg/dl (0.2-1.0); Blood Urea Nitrogen 13.0 mg/dl (6-23); Calcium 10.0 mg/dl (8.6-10.3); Carbon Dioxide 27.0 mmol/L (21-32); Chloride 99.0 mmol/L (98-107); Creatine Kinase 43.0 U/L (26-192); Creatinine Clr Calc Pharmacy 55.2 ml/min; Glucose 244.0 mg/dl (70-99(Fasting)); Lipase 50.0 U/L (11-82); Magnesium 1.6 mg/dl (1.7-2.4); Potassium 3.6 mmol/L (3.5-5.1); Sodium 139.0 mmol/L (136-145)
[2025-08-08 11:58] LABS: Albumin Globulin Ratio 1.3 (0.9-2); Globulin 3.2 gm/dl (2.5-4.0); Total Protein 7.2 gm/dl (6.0-8.3)
[2025-08-08 12:23] LABS: Thyroid Stimulating Hormone 5.587 uIu/ml (0.300-4.500)
[2025-08-08] MEDS: MAGNESIUM SULFATE / D5W 1 GM/100 ML BAG IV STA (12:30)
[2025-08-08 12:33] LABS: T4 Free Thyroxine 0.89 ng/dl (0.61-1.60)
[2025-08-08] MEDS ORDERED: GLUCOSE 10 TAB/TUBE PO PRN (13:11)
[2025-08-08] MEDS ORDERED: CARBOHYDRATES FOR HYPOGLYCEMIA PO PRN (13:11)
[2025-08-08] MEDS ORDERED: DEXTROSE 50% 50 ML SYRINGE IV PRN (13:11)
[2025-08-08] MEDS ORDERED: GLUCOSE 40% GEL 15 GM TUBE PO PRN (13:11)
[2025-08-08] MEDS ORDERED: GLUCAGON FOR INJ 1 MG VIAL SQ PRN (13:11)
--- NOTE | 2025-08-08 13:28 | History & Physical Report ---
Date of Service August 08, 2025 Assessment & Plan (1) Episode of unresponsiveness: Plan: Assessment: 1. Unresponsive episode while at the personal-skilled nursing today unwitnessed in her bed. She was found in her bed unresponsive after breakfast today. We suspect she had a seizure. She had came to the ER unresponsive and her mental status gradually returned to complete baseline. Her neuroimaging thus far is negative. CT of the neck was pending at the time of this dictation. CT of the head was negative CTA of the head head was negative. Discussed with neurology on-call-Dr. Brody. Recommending titration of Lamictal from 100 twice daily to 150 mg twice daily. This changes been made accordingly. Seizure precautions have been ordered. Will continue to monitor the patient on an observation status. EEG was just performed last week which showed abnormal temporal lobe activity. 2. Again, unresponsiveness, suspected be related to seizure disorder will do serial troponins for completeness. The first troponin is negative. She has no cardiac complaints. 3. History of cardiomyopathy. EF 20 to 25% by history. No evidence of acute heart failure. 4. Diabetes mellitus. Insulin requiring. We have ordered her home Lantus and sliding scale. Will hold off on her metformin given the IV dye she had today with her CTA results. 6. Hypertension. Stable monitor home meds as appropriate. 7. Hypothyroidism. Continue our replacement therapy check a TSH in the morning. 8. Hypomagnesemia. Was replaced in the ER. Can recheck in the a.m. 9. Dyslipidemia. Home meds as appropriate. 10. Debility. Typically ambulates with a walker. Falls precautions have been ordered. 10. Underlying cognitive impairment/dementia documented in the medical record. Probable vascular dementia. Plan: As discussed above. Please refer to orders for further planning. History of Present Illness Chief Complaint: Unresponsive episode. Primary Care Provider: Bonifacio Ibanez DO This is a 79-year-old female recently admitted to the hospital with suspicious seizure activity. She had an EEG July 25, 2025 that showed abnormal temporal activity. She was in a personal-skilled nursing environment. This morning she had breakfast. She returned to her room. When staff wanted to give her her morning pills the patient was unresponsive. She was brought to the ER in unresponsive state. Patient's laboratory studies were fairly unremarkable with exception of mild hypomagnesemia which she received mag sulfate for replacement. CT of the brain was negative for acute findings. CTA of the head was negative for acute findings. CT of the neck was pending at the time of this dictation. While in the ER her neurologic status completely returned to baseline. The patient's vital signs were stable during her unresponsive episode. The suspicion is the patient probably had a seizure while at the personal-skilled nursing in her bed and was found to be in a postictal state and was brought to the ER in a postictal state which is subsequently resolved. Her only complaint currently is that she is hungry and would like something to eat. We are called admit the patient for further evaluation and treatment. Utilization review has reviewed the case and recommending observation status which I am in agreement with at this time. We personally discussed the case with neurology on-call Dr. Brody. He is recommending titration of the Lamictal from 100 twice daily to 150 twice daily which has been ordered. Allergies Allergy/AdvReac Type Severity Reaction Status Date / Time aspirin Allergy Severe Hives Verified 07/25/25 10:41 NSAIDS (Non-Steroidal Allergy Intermediate Hives Verified 07/25/25 10:41 Anti-Inflamma Penicillins Allergy Intermediate Hives Verified 07/25/25 10:41 vancomycin Allergy Intermediate Redness of Verified 07/25/25 10:41 Skin fenofibrate Allergy Unknown ON PT MED Verified 07/25/25 10:41 LIST naproxen Allergy Unknown Unknown - Verified 07/25/25 10:41 On Med List from [facility] propoxyphene Allergy Unknown ON PT MED Verified 07/25/25 10:41 LIST Home Medications Medication Instructions Recorded Confirmed Type paroxetine HCl 20 mg tablet 20 mg PO HS 01/29/22 08/08/25 History cholecalciferol (vitamin D3) 25 25 mcg PO QAM 03/17/23 08/08/25 History mcg (1,000 unit) capsule (Vitamin D3) levothyroxine 25 mcg tablet 25 mcg PO DAILYBB 03/17/23 08/08/25 History (Synthroid) clopidogrel 75 mg tablet 75 mg PO QAM #30 tabs 04/28/23 08/08/25 Rx diclofenac sodium 1 % topical gel 2 g topical QID PRN Pain 02/05/24 08/08/25 History emollient combination no.92 1 applic topical BID Dry skin - 02/05/24 08/08/25 History (Lubriderm Daily Moisture lotion) Legs loperamide 2 mg capsule 2 mg PO UD PRN Diarrhea 02/05/24 08/08/25 History omeprazole 40 mg capsule,delayed 40 mg PO DAILYBB 02/05/24 08/08/25 History release potassium chloride 20 mEq 20 meq PO DAILY PRN .When lasix is 06/01/24 08/08/25 History tablet,extended release given ferrous sulfate 325 mg (65 mg 325 mg PO Q48H #20 tabs 06/10/24 08/08/25 Rx iron) tablet,delayed release acetaminophen 650 mg 650 mg PO .Q4 PRN fever or pain 01/25/25 08/08/25 History tablet,extended release cranberry 30,000 mg PO DAILY Chronic UTI 01/25/25 08/08/25 History dextromethorphan-guaifenesin 20 10 ml PO Q6 PRN Cough 01/25/25 08/08/25 History mg-200 mg/5 mL oral elixir dextromethorphan-guaifenesin 30 2 tab PO Q12H PRN cough 01/25/25 08/08/25 History mg-600 mg tablet extended [id number] hr (Mucinex DM) carvedilol 6.25 mg tablet 6.25 mg PO BID #60 tabs 07/18/25 08/08/25 Rx hydroxyzine HCl 10 mg tablet 10 mg PO Q6H PRN Anxiety 07/19/25 08/08/25 History insulin glargine 100 unit/mL (3 18 unit subcut HS 07/19/25 08/08/25 History mL) subcutaneous pen (Lantus Solostar U-100 Insulin) metformin 1,000 mg tablet 1,000 mg PO BID 07/19/25 08/08/25 History cyanocobalamin (vitamin B-12) 500 1,000 mcg (2 x 500 mcg) PO QAM #60 08/03/25 08/08/25 Rx mcg tablet tabs lamotrigine 100 mg tablet 100 mg PO BID #60 tabs 08/03/25 08/08/25 Rx furosemide 40 mg tablet (Lasix) 80 mg PO DAILY PRN .EDEMA/WT GAIN 08/08/25 08/08/25 History multivitamin 1 tab PO DAILY 08/08/25 08/08/25 History Past Med/Surg History Problem List (Updated 08/02/25 @ 06:48 by Jorge A Lawrence MD) HFrEF (heart failure with reduced ejection fraction) Cardiomyopathy Acute hypokalemia (Acute) Hypomagnesemia (Acute) Episode of unresponsiveness (Acute) Elevated troponin Acute HFrEF (heart failure with reduced ejection fraction) CHF exacerbation Multifocal pneumonia Acute respiratory failure with hypoxia Hypomagnesemia (Acute) Elevated lactic acid level (Acute) Acute confusion (Acute) Hypoxia (Acute) CHF (congestive heart failure) (Acute) Acute respiratory distress (Acute) Left knee pain Episode of unresponsiveness (Acute) Anemia (Acute) AMS (altered mental status) (Acute) Unresponsive episode Syncope Dehydration Encephalopathy Elevated lactic acid level (Acute) Acute UTI (Acute) Sepsis (Acute) UTI (urinary tract infection) (Acute) Discussion about advance care planning held with family member Palliative care by specialist Confusion Cerebrovascular disease (Acute) UTI (urinary tract infection), uncomplicated Generalized weakness Gait apraxia Stroke 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 Fatigue Hypomagnesemia (Acute) Bladder spasms Confusion and disorientation Seizure-like activity Hypotension Leg swelling AMS (altered mental status) (Acute) Acute hypotension (Acute) Elevated lactic acid level (Acute) SKY (acute kidney injury) Acute metabolic encephalopathy Morbid obesity Prolonged PTT Cerebrovascular disease Abnormal brain MRI Bilateral leg edema Medical History (Updated 08/02/25 @ 06:48 by Jorge A Lawrence MD) Nonobstructive atherosclerosis of coronary artery Thoracic aortic aneurysm LBBB (left bundle branch block) Depression Infarction of kidney Neuropathy GERD (gastroesophageal reflux disease) HLD (hyperlipidemia) Ascending aorta dilatation Recurrent UTI (urinary tract infection) Diabetes Dementia HTN (hypertension) Hypothyroidism H/O: stroke Nonischemic cardiomyopathy Seizure, late effect of stroke Strain of rotator cuff of right shoulder No pertinent family history Surgical History S/P colonoscopy S/P hysterectomy S/P appendectomy History of back surgery Status post right knee replacement No pertinent past surgical history Family History (Updated 08/02/25 @ 06:45 by Jorge A Lawrence MD) Mother Heart disease Dementia Father Lung cancer Social History (Updated 08/02/25 @ 06:45 by Jorge A Lawrence MD) Smoking Status: Never smoker Second Hand Exposure: No; Do You Dip or Chew Tobacco: No; Hx Alcohol Use: No Hx Substance Use: No Preferred Language: Dominican Communication Ability: Effective Communication Ability Comment: confused, but clear Visual Impairment: No Limitations Hearing Ability: Normal Collar Band Creaser Required: No Beliefs That Will Affect Care: None marital status: / Current Living Situation: Personal Care Facility Current Living Situation Comment: [facility] current occupational status: retired 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 Physical Exam Physical Exam: In General: In general pleasant 79-year-old female who is alert and oriented to person and place at the time my exam. She is accompanied by her grandson Billy at the time of my exam. She interacts appropriately and pleasantly. Again her only complaint is she would like to eat. HEENT: Normocephalic atraumatic pupils are equal round and reactive to light bilaterally. No scleral icterus no conjunctival injection external auditory canals are patent septum is in the midline nose is without discharge oral mucosa is pink and moist without lesion. NECK: Supple no rigidity no lymphadenopathy no thyromegaly no carotid bruits no JVD no masses. HEART: Regular rate and rhythm I do not appreciate any ectopy or rub. No murmur. LUNGS: Clear to auscultation bilaterally and anteriorly with no evidence of adventitious sounds/wheezes rales or rhonchi. ABDOMEN: Obese, soft nontender, no rebound, no peritoneal signs, positive bowel sounds, no appreciable organomegaly. EXTREMITIES: Intact, no peripheral cyanosis, clubbing or edema. Strength is 5 out of 5 in extremities x4, no pathological reflexes. NEUROLOGICAL: Cranial nerves II through XII are grossly intact with no focal deficit elicited upon examination. No tremor. Results & Data Results & Data Vital Signs (Past 12 Hours) Vital Signs Temp Pulse Pulse Resp BP BP Pulse Ox 08/08/25 12:00 81 20 147/91 H 98 08/08/25 11:40 86 20 98 08/08/25 11:36 87 21 150/107 H 98 08/08/25 11:08 87 22 160/98 H 97 08/08/25 11:08 97 08/08/25 10:30 87 23 147/97 H 94 08/08/25 10:27 86 08/08/25 10:20 36.8 C 85 22 158/113 H 95 O2 Del Method O2 Flow Rate 08/08/25 12:00 Nasal Cannula 3 08/08/25 11:40 Nasal Cannula 3 08/08/25 11:36 Nasal Cannula 3 08/08/25 11:08 08/08/25 11:08 Nasal Cannula 3 08/08/25 10:30 Nasal Cannula 2 08/08/25 10:27 08/08/25 10:20 Nasal Cannula 2 Code Status & VTE Plan Code Status Full code. I personally discussed with patient and her grandson Billy at the bedside. It is also documented that the this was confirmed by her daughter last week on admission. VTE Prophylaxis Plan VTE Prophylaxis will be ordered: Yes PG Care Time/CCT Total # of Minutes Spent Total Time Spent with Patient: Total time spent is greater than 50% in coordination of care (as documented) at patient's floor/unit and/or counseling patient: Coding Level of Care Code 76063 INT INP/OBS CARE 2/55MIN Diagnoses Episode of unresponsiveness R40.4
--- NOTE | 2025-08-08 13:51 | Electrocardiogram Report ---
Test Reason : Blood Pressure : */* mmHG Vent. Rate : 83 BPM Atrial Rate : 83 BPM P-R Int : 216 ms QRS Dur : 154 ms QT Int : 432 ms P-R-T Axes : 34 -27 90 degrees QTcB Int : 507 ms Sinus rhythm with 1st degree A-V block Possible Left atrial enlargement Left bundle branch block Abnormal ECG When compared with ECG of 01-Aug-2025 13:02, Premature ventricular complexes are no longer Present Confirmed by Rusty Lemon ([id number]) on 08/08/2025 1:50:47 PM Referred By: REFERRED SELF Confirmed By: Rusty Lemon
[2025-08-08] MEDS ORDERED: ACETAMINOPHEN 325 MG TAB PO PRN (15:26)
[2025-08-08] MEDS: INSULIN ASPART PER UNIT CHARGE SC SCH (17:19)
[2025-08-08] MEDS: lamoTRIgine 100 MG TAB PO SCH (20:46)
[2025-08-08] MEDS: lamoTRIgine 25 MG TAB PO SCH (20:46)
[2025-08-08] MEDS: LANTUS PER UNIT CHARGE SC SCH (20:46)
[2025-08-08 23:35] VITALS: RESP 18
[2025-08-09] MEDS: LEVOTHYROXINE SODIUM 25 MCG TABLET PO SCH (05:11)
[2025-08-09 06:13] LABS: Hematocrit (blood only) 37.3 % (37.0-47.0); Hemoglobin 13.0 g/dl (12.0-16.0); Immature Granulocytes # (auto) 0.02 K/uL (0.01-0.20); Immature Granulocytes % (auto) 0.3 %; Mean Corpuscular Hemoglobin 33.4 pg (25.0-34.0); Mean Corpuscular Volume 95.9 fL (80.0-100.0); Platelet Count 184 K/uL (130-400); RDW Standard Deviation 43.6 fL (36.4-46.3); Red Blood Count 3.89 M/uL (4.20-5.40); White Blood Count 6.47 K/ul (4.8-10.8)
[2025-08-09 06:47] LABS: Alanine Aminotransferase 11.0 U/L (7-52); Albumin Globulin Ratio 1.3 (0.9-2); Albumin Level 3.5 gm/dl (3.4-5.0); Alkaline Phosphatase 39.0 U/L (34-104); Anion Gap 7.0 (3-11); Bilirubin,Total 0.8 mg/dl (0.2-1.0); Blood Urea Nitrogen 14.0 mg/dl (6-23); Calcium 9.2 mg/dl (8.6-10.3); Carbon Dioxide 32.0 mmol/L (21-32); Chloride 99.0 mmol/L (98-107); Cholesterol 213.0 mg/dl (0-200); Creatinine Clr Calc Pharmacy 50.6 ml/min; Globulin 2.6 gm/dl (2.5-4.0); Glucose 189.0 mg/dl (70-99(Fasting)); HDL Cholesterol 44.0 mg/dl; Magnesium 1.7 mg/dl (1.7-2.4); Potassium 3.3 mmol/L (3.5-5.1); Sodium 138.0 mmol/L (136-145); Total Protein 6.1 gm/dl (6.0-8.3); Triglycerides 248.0 mg/dl (0-150)
[2025-08-09 07:00] LABS: Thyroid Stimulating Hormone 3.358 uIu/ml (0.300-4.500)
[2025-08-09] MEDS ORDERED: PHARMACY GLYCEMIC MGMT CONSULT PRN (07:25)
[2025-08-09 07:29] LABS: Hemoglobin A1C 8.9 % (4.5-5.6)
--- NOTE | 2025-08-09 07:53 | Neurology Consultation ---
Date of Consultation August 09, 2025 Assessment & Plan (1) Episode of unresponsiveness: (2) Seizure disorder: (3) Vascular dementia: (4) Chronic cerebral ischemia: (5) Essential tremor: Plan This is a somewhat complicated patient neurologically and that she has episodes of unresponsiveness without witnessed seizure activity. We have not been able to prove seizures or any cardiac dysrhythmia that would lead to unresponsiveness after extensive testing. She continues to be brought to the emergency room every time she has an episode of unresponsiveness and shortly gets back to baseline once she is in the ER. The patient does have underlying cerebral ischemia with previous small strokes bilateral parietal and cerebellar hemispheres. She has extensive small vessel ischemic disease. Her cerebrovascular disease puts her at risk for strokes. The patient has dementia consistent with age and vascular changes. Overall her dementia is static and is consistent with vascular dementia. The patient has nonischemic cardiomyopathy and heart failure with reduced ejecti on fraction followed closely by cardiology. Certainly, a cardiac dysrhythmia could create an episode of unresponsiveness but this has not been proven by testing so far. Patient has a mild action tremor bilaterally. This is nonspecific. There is no evidence of Parkinsonism. Recommendations: 1. Increase lamotrigine empirically to 150 mg twice a day. 2. Consider decreasing paroxetine to 10 mg daily (if able). SSRIs can lower seizure threshold's. 3. There is no indication to treat the tremor at this point as it is still very mild. I am not certain that propranolol (which is the drug of choice for this type of tremor) would be approved by cardiology given her cardiac conditions. 4. Increase activity as able 5. Consider adding memantine for her dementia, 5 mg twice a day for 1 month then 10 mg twice a day. This medication typically helps and has little side effect. This should be done as an outpatient however. 6. Follow-up with neurology PA in 2 to 3 weeks after discharge. She will need a trough Lamictal level in 2 weeks and then titrate Lamictal as able to a solid therapeutic dose. Over, I spent a total of minutes with this case including review of records, review of MRI films, direct evaluation of the patient at bedside, report generation, and discussion of the case with the patient and RN at bedside and Dr. Zhao including differential diagnosis and treatment options. History of Present Illness Reason for Consultation: Patient is an 79-year-old who I was asked to see at the request of Dr. Odonnell, for neurologic evaluation regarding seizure disorder Requesting Physician: Dr. Odonnell Attending Physician: Jorge A Zhao MD History of Present Illness The patient developed memory issues 6 to 7 years ago. It was an insidious onset and gradual progression. She saw Dr. Culp in January 2022 who diagnosed dementia. MRI of the brain at that time showed significant atrophy and old small vessel ischemic disease, including small infarcts in the cerebellar hemispheres and parietal lobes bilaterally. He initiated donepezil 10 mg each evening. In January 2023 apparently an EEG was unremarkable but I do not have this report. In April 2023 she was admitted for episodic unresponsiveness and possible seizure. MRI of the brain showed multiple old infarcts in the left greater than right cerebellum, right frontal parietal and left occipital head regions. There was moderate to significant old small vessel ischemic disease and generalized atrophy. At that time, EEG showed mild generalized dysrhythmia of the nonspecific nature. She was diagnosed with vascular dementia and episodes of unresponsiveness, possible seizure disorder and initiated on levetiracetam 500 mg twice daily. By the summer 2023 she was taken off the levetiracetam due to side effects and lack of further episodes. However, shortly after she went off in May 2024 she had 3 episodes of unresponsiveness. At that time she was taken off donepezil as well. A CT scan angiography of the head and neck were unremarkable/normal. In June 2024 she was initiated on lamotrigine 25 mg twice a day and titrated. In July 2024 she had a 3-day outpatient ambulatory EEG which was read as normal. She had 2 "events" which were undescribed but I do not believe they were unresponsive episodes. At the same time she had a cardiac event monitor for 26 days which showed multiple episodes of V. tach lasting 3-8 beats, and a few spells described as "dizziness", but again, no unresponsive episodes. The patient has congestive heart failure and other cardiac issues but no significant dysrhythmia resulting in unresponsiveness that has been proven. She last saw Dr. Culp in December 2024 and was on lamotrigine 75 mg twice a day. She was doing fairly well. She was staying in a personal care facility and she was on paroxetine 20 mg a day for mood. On June 01 she was sent to the emergency room by the staff at [facility], where she is a resident, for an unresponsive episode. They found her that way. She was somewhat groggy by the time she was in the ER but then woke up in the ER back to her baseline. No one had actually witnessed seizure activity at the care home or in the ER. MRI of the brain showed the old small vessel ischemic disease and strokes as before with no change compared to previous. I reviewed these films. On August 02, EEG showed left temporal sharp waves and generalized dysrhythmia of a nonspecific nature. Lamotrigine was increased to 100 mg twice a day. Echocardiogram revealed a worse ejection fraction of 20 to 25%. Once again, the patient was found in the care home with another episode of unresponsiveness. Again, no actual seizure activity was witnessed. She arrived in our emergency room and "woke up" back to baseline there. Blood pressure was 158/113 when she arrived at the emergency room and her O2 saturation was 92%. She was afebrile. CBC was unremarkable. CHEM profile was unremarkable as well although glucose was 244. Magnesium was slightly low at 1.6. TSH was slightly high at 5.5. Urinalysis was unremarkable. CT angiography of the head and neck were unremarkable, with no evidence of vascular stenoses or anomalies. Chest x-ray showed stable congestive heart failure. Since admission she has not had any further seizure activity and has been pleasant and cooperative. This morning the patient states that her mood is doing very well. She denied headache, pain, dizziness, vision problems, weakness, numbness or anything new. This morning blood pressure was 121/78 and she was afebrile. Today TSH was 3.3 and CHEM profile was unremarkable except for a glucose of 189. Hemoglobin A1c was 8.9 total cholesterol 213 and triglycerides 248. CBC was unremarkable. Overnight monitoring showed no abnormal rhythms and she has been in normal sinus rhythm anywhere from the 70s to the 90s. Allergies Allergy/AdvReac Type Severity Reaction Status Date / Time aspirin Allergy Severe Hives Verified 07/25/25 10:41 NSAIDS (Non-Steroidal Allergy Intermediate Hives Verified 07/25/25 10:41 Anti-Inflamma Penicillins Allergy Intermediate Hives Verified 07/25/25 10:41 vancomycin Allergy Intermediate Redness of Verified 07/25/25 10:41 Skin fenofibrate Allergy Unknown ON PT MED Verified 07/25/25 10:41 LIST naproxen Allergy Unknown Unknown - Verified 07/25/25 10:41 On Med List from [facility] propoxyphene Allergy Unknown ON PT MED Verified 07/25/25 10:41 LIST Home Medications Medication Instructions Recorded Confirmed Type paroxetine HCl 20 mg tablet 20 mg PO HS 01/29/22 08/08/25 History cholecalciferol (vitamin D3) 25 25 mcg PO QAM 03/17/23 08/08/25 History mcg (1,000 unit) capsule (Vitamin D3) levothyroxine 25 mcg tablet 25 mcg PO DAILYBB 03/17/23 08/08/25 History (Synthroid) clopidogrel 75 mg tablet 75 mg PO QAM #30 tabs 04/28/23 08/08/25 Rx diclofenac sodium 1 % topical gel 2 g topical QID PRN Pain 02/05/24 08/08/25 History emollient combination no.92 1 applic topical BID Dry skin - 02/05/24 08/08/25 History (Lubriderm Daily Moisture lotion) Legs loperamide 2 mg capsule 2 mg PO UD PRN Diarrhea 02/05/24 08/08/25 History omeprazole 40 mg capsule,delayed 40 mg PO DAILYBB 02/05/24 08/08/25 History release potassium chloride 20 mEq 20 meq PO DAILY PRN .When lasix is 06/01/24 08/08/25 History tablet,extended release given ferrous sulfate 325 mg (65 mg 325 mg PO Q48H #20 tabs 06/10/24 08/08/25 Rx iron) tablet,delayed release acetaminophen 650 mg 650 mg PO .Q4 PRN fever or pain 01/25/25 08/08/25 History tablet,extended release cranberry 30,000 mg PO DAILY Chronic UTI 01/25/25 08/08/25 History dextromethorphan-guaifenesin 20 10 ml PO Q6 PRN Cough 01/25/25 08/08/25 History mg-200 mg/5 mL oral elixir dextromethorphan-guaifenesin 30 2 tab PO Q12H PRN cough 01/25/25 08/08/25 History mg-600 mg tablet extended [id number] hr (Mucinex DM) carvedilol 6.25 mg tablet 6.25 mg PO BID #60 tabs 07/18/25 08/08/25 Rx hydroxyzine HCl 10 mg tablet 10 mg PO Q6H PRN Anxiety 07/19/25 08/08/25 History insulin glargine 100 unit/mL (3 18 unit subcut HS 07/19/25 08/08/25 History mL) subcutaneous pen (Lantus Solostar U-100 Insulin) metformin 1,000 mg tablet 1,000 mg PO BID 07/19/25 08/08/25 History cyanocobalamin (vitamin B-12) 500 1,000 mcg (2 x 500 mcg) PO QAM #60 08/03/25 08/08/25 Rx mcg tablet tabs lamotrigine 100 mg tablet 100 mg PO BID #60 tabs 08/03/25 08/08/25 Rx furosemide 40 mg tablet (Lasix) 80 mg PO DAILY PRN .EDEMA/WT GAIN 08/08/25 08/08/25 History multivitamin 1 tab PO DAILY 08/08/25 08/08/25 History Patient History Medical History Nonobstructive atherosclerosis of coronary artery Thoracic aortic aneurysm LBBB (left bundle branch block) Depression Infarction of kidney Neuropathy GERD (gastroesophageal reflux disease) HLD (hyperlipidemia) Ascending aorta dilatation Recurrent UTI (urinary tract infection) Diabetes Dementia HTN (hypertension) Hypothyroidism H/O: stroke Nonischemic cardiomyopathy Seizure, late effect of stroke Strain of rotator cuff of right shoulder No pertinent family history Surgical History S/P colonoscopy S/P hysterectomy S/P appendectomy History of back surgery Status post right knee replacement No pertinent past surgical history Family History Mother Heart disease Dementia Father Lung cancer Social History Smoking Status: Never smoker Second Hand Exposure: No; Do You Dip or Chew Tobacco: No; Hx Alcohol Use: No Hx Substance Use: No Preferred Language: Filipino Communication Ability: Effective Communication Ability Comment: confused, but clear Visual Impairment: No Limitations Hearing Ability: Normal Cattle Driver Required: No Beliefs That Will Affect Care: None marital status: / Current Living Situation: Personal Care Facility Current Living Situation Comment: 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 How many Children do You have: 4 Feels Safe at Home: Yes Childhood Exposure to Second-Hand Smoke: No Diet: diabetic Dental Care, Regularly: No Physical Activity Frequency: Does not Exercise Seatbelt Use: always Sunscreen Use: No Assistive Devices: Denture - Upper, Denture - Lower, Oxygen - Continuous and Walker Review of Systems Constitutional: no fever, no fatigue and no weakness Eyes: no diplopia, no eye pain and no worsening vision Ear, Nose, Mouth, Throat: no ear pain, no tinnitus, no hearing loss, no dizziness, no snoring, no hoarseness and no dysphagia Respiratory: no cough and no dyspnea Cardiovascular: no chest pain, no palpitations and no lightheadedness Gastrointestinal: no abdominal pain, no nausea and no vomiting Genitourinary: no dysuria, no urinary frequency and no urinary incontinence Musculoskeletal: no back pain, no neck pain, no radicular pain, no joint pain and no myalgia Integumentary: no rash and no lesions Neurologic: no gait abnormality, no localized weakness, no generalized weakness, no tingling, no numbness, no tremor(s), no abnormal movements, no headache(s), no abnormal speech, no confusion and no memory loss Psychiatric: no depression, no irritability, no anxiety, no difficulty concentrating, no confusion and no hallucinations Endocrine: no fatigue and no flushing Hematologic / Lymphatic: no easy bleeding and no easy bruising Allergy / Immunological: no urticaria and no problem reported Exam (Neuro) Physical Exam: The patient is right-handed. The patient is awake, alert, and attentive. Speech is normal without any aphasia or dysarthria. Mentation and thought processes are variable. She knew her name, her birthdate, her age, what town she lives in, and the month. She did not know the name of her care home, the name of the president, the year, the town she was born in, or where she went to high school. She did not know where she was currently. Pupils are 3 mm bilaterally and reactive to light. Extraocular eye muscles are intact without nystagmus. Visual acuity and visual garay seem normal grossly to confrontation. There are no deficits to sensation in the face in all 3 distributions of the fifth cranial nerve bilaterally. Corneal reflexes are positive bilaterally. Facial strength and symmetry was normal bilaterally. Hearing seems intact grossly to voice and finger rub bilaterally. Palate moves well without asymmetry. There is normal sternocleidomastoid and trapezius strength bilaterally. Tongue is midline with good strength bilaterally. Neck has a full range of motion without discomfort. There are no cervical bruits bilaterally. There are no cranial or ocular bruits. Heart is without murmur. There is a regular rhythm and rate. Cervical, thoracic, and lumbar spine are nontender to palpation. Gait was not tested but stands sitting up in bed is reasonable. With outstretched arms there is no drift. There are no resting tremors. There is no ataxia with finger to nose testing. However, there was mild action tremor bilaterally. There is reasonably good facility in the hands. No other abnormal involuntary movements are noted. Motor strength is 5/5 diffusely in the arms bilaterally including deltoids, biceps, triceps, brachioradialis, wrist flexors and extensors, process architect, and intrinsic hand muscles. Motor strength is 5/5 diffusely in the legs bilaterally including hip flexors, quadriceps, hamstrings, gastrocnemius, tibialis anterior, tibialis posterior, and Peroneii muscles bilaterally. Toe extensors are normal and there is good bulk in the extensor digitorum brevis muscles bilaterally. The limbs have good tone without rigidity or spasticity. There is no atrophy noted in the muscles. Muscle bulk is normal, there is no tenderness to palpation, no myotonia to percussion, and no fasciculations seen. Sensory examination is intact to touch and pin throughout all 4 limbs diffusely. Reflexes are 2/4 in the biceps, triceps, brachioradialis, and quadriceps tendons bilaterally. Achilles tendon reflexes were absent bilaterally. Toes appeared upgoing with plantar stimulation bilaterally. Results & Data Vital Signs (Past 12 Hours) Vital Signs Temp Pulse Pulse Resp BP Pulse Ox O2 Del Method 08/09/25 07:24 36.6 C 79 18 121/78 96 Room Air 08/09/25 03:32 36.7 C 87 18 122/61 93 Nasal Cannula 08/08/25 23:34 36.6 C 84 18 112/69 96 Nasal Cannula 08/08/25 22:17 89 O2 Flow Rate 08/09/25 07:24 08/09/25 03:32 2 08/08/25 23:34 2 08/08/25 22:17 PG Care Time/CCT Total # of Minutes Spent Total Time Spent with Patient: Total time spent is greater than 50% in coordination of care (as documented) at patient's floor/unit and/or counseling patient: Coding Level of Care Code 79104 INT INP/OBS CARE 3/75MIN Diagnoses Episode of unresponsiveness R40.4 Seizure disorder G40.909 Vascular dementia F01.50 Chronic cerebral ischemia I67.82 Essential tremor G25.0 Time Spent (min) 90
[2025-08-09] MEDS: CHOLECALCIFEROL 25 MCG (1000 UNITS) TAB PO SCH (09:32)
[2025-08-09] MEDS: CLOPIDOGREL BISULFATE 75 MG TAB PO SCH (09:33)
[2025-08-09] MEDS: CYANOCOBALAMIN (B-12) 500 MCG TABLET PO SCH (09:33)
[2025-08-09] MEDS: FERROUS SULFATE 325 MG TAB PO SCH (09:34)
[2025-08-09 11:22] VITALS: BP 123/74; TEMP 97.5; O2SAT 94
--- NOTE | 2025-08-09 13:40 | Pharmacy Report ---
Pharmacy Glycemic Short Note 2 - Date of Service August 09, 2025 - Glycemic Short BSG Results (Last 24 hours): 08/08/25 08/08/25 08/09/25 16:29 20:06 05:52 Glucose 189 H POC Glucose 234 H 178 H 08/09/25 08/09/25 07:22 11:21 Glucose POC Glucose 178 H 206 H OUTPATIENT ANTIDIABETIC REGIMEN: * Lantus 18 units SQ at HS * metformin 1000mg PO bid HbA1c: 8.95 on 08/09/25 ASSESSMENT: * ABI is an 79 year old female who presented to the ED on 08/08 from her nursing home facility with an episode of unresponsiveness. Patient was admitted and pharmacy was consulted for glycemic management today. * At dinner time yesterday, her BSG was 234mg/dL. A weight based bolus insulin regimen with a stress of 1 was started and her home dose of Lantus 18 units SQ at HS was ordered. * Fasting BSG was 178mg/dL this morning and 206mg/dL at lunch. The bolus insulin parameters were tightened to a stress of 2 (using adjusted body weight). Will continue Lantus 18 units at HS for now. PLAN FOR INPATIENT GLYCEMIC CONTROL: * Hold outpatient oral diabetes medications * Basal insulin * Lantus 18 units SQ at HS * Bolus insulin * NovoLog per scale ACHS or Q6hrs while NPO * Goal Range: Low 110 mg/dL - High 160 mg/dL * Correction Factor: 25 mg/dL/unit * Nutritional / Prandial insulin per carb ratio of 1 unit per 9 grams CHO consumed
[2025-08-09] MEDS: POTASSIUM CHLORIDE CRTAB 20 MEQ TABCR PO STA (14:36)
--- NOTE | 2025-08-09 15:08 | Discharge Summary ---
Discharge Summary Date of Service August 09, 2025 Principal Dx & Hospital Course #1 = Principal Diagnosis (1) Episode of unresponsiveness: Deanna Mccormack is an 79 year old female observed at [facility] from July 08 to 2024 due to unresponsive episode. Suspect this was due to seizure and her Lamictal has been increased to 150 mg BID on advice of neurology. Neurology also recommended considering decreasing paroxetine to 10 mg daily if able as SSRIs can lower seizure threshold however will defer this to her primary care provider if this is possible. Neurology also recommended adding memantine for her dementia which again should be evaluated if appropriate by her primary care provider. Urinalysis was negative for infection. She is now back to her baseline state and medically stable for discharge. Notes For Next Care Provider Routine follow up Medication Changes From Visit Lamictal dose increased due to fever Admission HPI Per Admitting Provider This is a 79-year-old female recently admitted to the hospital with suspicious seizure activity. She had an EEG July 25, 2025 that showed abnormal temporal activity. She was in a personal-senior living environment. This morning she had breakfast. She returned to her room. When staff wanted to give her her morning pills the patient was unresponsive. She was brought to the ER in unresponsive state. Patient's laboratory studies were fairly unremarkable with exception of mild hypomagnesemia which she received mag sulfate for replacement. CT of the brain was negative for acute findings. CTA of the head was negative for acute findings. CT of the neck was pending at the time of this dictation. While in the ER her neurologic status completely returned to baseline. The patient's vital signs were stable during her unresponsive episode. The suspicion is the patient probably had a seizure while at the personal-senior living in her bed and was found to be in a postictal state and was brought to the ER in a postictal state which is subsequently resolved. Her only complaint currently is that she is hungry and would like something to eat. We are called admit the patient for further evaluation and treatment. Utilization review has reviewed the case and recommending observation status which I am in agreement with at this time. We personally discussed the case with neurology on-call Dr. Brody. He is recommending titration of the Lamictal from 100 twice daily to 150 twice daily which has been ordered. Discharge Exam Respiratory normal respiratory effort, lungs clear to auscultation Cardiovascular RRR, no murmur, no edema Gastrointestinal (Abdomen) normal bowel sounds, soft, nontender, no hepatosplenomegaly Neurologic moves all extremities and awake; no focal motor deficits Psychiatric A+Ox3, euthymic affect Discharge Plan Discharge Items Patient Disposition: Transfer Care Home Fac Reason For Visit: ? SEIZURE Discharge Diagnosis: Unresponsive episode, suspected seizure Condition on Discharge: Fair Activity: Resume your previous activity Non-emergency contact: Primary Care Provider Call non-emergency contact if: you have any medication questions and your symptoms worsen Follow-up/Referrals: Bonifacio Ibanez, DO [Primary Care Provider] - Diet: Carb Consistent or DM2 Addtl Attending Provider Instructions: You were observed at [facility] from July 08 to 2024 due to unresponsive episode. Suspect this was due to seizure and your Lamictal has been increased to 150 mg BID on advice of neurology. Neurology also recommended considering decreasing paroxetine to 10 mg daily if able as SSRIs can lower seizure threshold however will defer this to your primary care provider who knows you much better. Neurology also recommended adding memantine for her dementia which again should be evaluated if appropriate by her primary care provider. Urinalysis was negative for infection. You are now back to your baseline state and medically stable for discharge. Pending Studies at Discharge: No Stand-Alone Forms: My [facility] Skilled Items Patient informed of condition?: Yes DNR: No Discharge Level of Care: Skilled Communicable Disease: No Discharge Prognosis: Stable Lines: None Urinary Catheter: No Medications and DC Order Prescriptions: New magnesium oxide 200 mg magnesium tablet 400 mg PO DAILY Qty: 60 0RF lamotrigine [Subvenite] 150 mg tablet 150 mg PO BID Qty: 60 0RF Continued paroxetine HCl 20 mg tablet 20 mg PO HS hydroxyzine HCl 10 mg tablet 10 mg PO Q6H PRN (Reason: Anxiety) cranberry 10,000 mg tablet 30,000 mg PO DAILY acetaminophen 650 mg tablet extended release 650 mg PO .Q4 PRN (Reason: fever or pain) Mucinex DM 30-600 mg tablet extended release 12 hr 2 tab PO Q12H PRN (Reason: cough) dextromethorphan-guaifenesin 20-200 mg/5 mL elixir 10 ml PO Q6 PRN (Reason: Cough) clopidogrel 75 mg Tablet 75 mg PO QAM Qty: 30 0RF metformin 1,000 mg tablet 1,000 mg PO BID cholecalciferol (vitamin D3) [Vitamin D3] 25 mcg (1,000 unit) Capsule 25 mcg PO QAM levothyroxine [Synthroid] 25 mcg tablet 25 mcg PO DAILYBB Rx Instructions: for underactive thyroid gland carvedilol 6.25 mg Tablet 6.25 mg PO BID Qty: 60 0RF cyanocobalamin (vitamin B-12) 500 mcg Tablet 1,000 mcg PO QAM Qty: 60 0RF loperamide 2 mg capsule 2 mg PO UD MDD 8mg/24hrs PRN (Reason: Diarrhea) Rx Instructions: 1 capsule after each additional loose stool omeprazole 40 mg capsule,delayed release(DR/EC) 40 mg PO DAILYBB Lubriderm Daily Moisture Lotion 1 applic TOPICAL BID diclofenac sodium 1 % gel 2 g topical QID PRN (Reason: Pain) insulin glargine [Lantus Solostar U-100 Insulin] 100 unit/mL (3 mL) insulin pen 18 unit SUBCUT HS potassium chloride 20 mEq Tablet Extended Release 20 meq PO DAILY PRN (Reason: .When lasix is given) ferrous sulfate 325 mg (65 mg iron) Tablet,Delayed Release (Dr/Ec) 325 mg PO Q48H Qty: 20 0RF multivitamin Tablet 1 tab PO DAILY furosemide [Lasix] 40 mg tablet 80 mg PO DAILY PRN (Reason: .EDEMA/WT GAIN) Rx Instructions: 40 mg orally Daily, take 80 mg as needed for 2 pound weight gain over 24 hours, 5 pound weight gain over 72 hours. Notify PCP if consistent weight gain over 5 days. Discontinued lamotrigine 100 mg Tablet 100 mg PO BID Qty: 60 0RF Discharge Orders: Discharge Order (Routine); Ordered 08/09/25 Ordered By: Jorge A Zhao Admission Data Admit Date/Time: 08/08/25 13:11 Attending Provider: Jorge A Zhao Admit Provider: Nik Odonnell Primary Care Provider: Bonifacio Ibanez Other Providers: Nik Odonnell; Angelo Brody; [facility] Other Interventions: Discharge Summary Assessment (RN) Last Done: 08/09/25 15:24 Hospital Stay Data Consultations 08/08/25 12:26 ED Decision to Admit Stat 08/08/25 13:11 Consult Neurology Routine Diagnostic Imagining Performed 08/08/25 10:27 CT angio head w con Stat CT angio neck with con Stat CT head/brain wo con Stat Pending Results Patient Have Any Pending Studies at Discharge: No Discharge Instructions Given to Patient (Per Discharging Provider) You were observed at [facility] from July 08 to 2024 due to unresponsive episode. Suspect this was due to seizure and your Lamictal has been increased to 150 mg BID on advice of neurology. Neurology also recommended considering decreasing paroxetine to 10 mg daily if able as SSRIs can lower seizure threshold however will defer this to your primary care provider who knows you much better. Neurology also recommended adding memantine for her dementia which again should be evaluated if appropriate by her primary care provider. Urinalysis was negative for infection. You are now back to your baseline state and medically stable for discharge. Total Time Total Time Spent Total Time Spent (In Minutes): 35 Total Time Includes: Examination of the Patient, Discharge Planning, Medication Reconciliation and Communication With Other Providers Coding Level of Care Code 32116 INP/OBS DISCH >30 MIN Diagnoses Episode of unresponsiveness R40.4
[2025-08-09 15:28] VITALS: PULSE 76
== END 2025-08-09 16:07 ==
LOC: 2S 10:15 → ED 10:15 → SUATTDRO 13:11 → 2S 14:13

== ENCOUNTER 2025-08-15 08:49 | Observation (INO) ==
--- NOTE | 2025-08-15 09:10 | Emergency Department Note ---
Impression & Plan Unresponsive episode, Hypoxia ED Provider Note NAME: ANTONIO BILL AGE: 79 SEX: F : 1945 ARRIVES VIA: Ambulance INFORMANT: Patient, daughter ED PROVIDER(S): Waylon Baker MD CHIEF COMPLAINT: Episode of unresponsiveness MEDICAL DECISION MAKING: Patient presents with the above. He did speak to the patient's daughter who stated that this has been a recurring thing since July. There has been some question about possible seizures. Patient daughter believes that they have increased her seizure medication but did report that 2 years ago they did this and that it might of acting contributed to decreased mentation. Blood work shows a normal white count hemoglobin and platelet count kidney function is unremarkable. VBG with hypercarbia but compensated pH is 7.37. Patient did eventually become more arousable. Patient was following commands and moving all 4 extremities talking appropriately. Patient did have the BiPAP removed. Patient still on nasal cannula oxygen. Lactate of 2.5. Troponin is 16. Urinalysis does not show evidence of obvious infection. Alcohol negative. Patient CT head does not show any acute findings. Chest x-ray read as possible stable mild CHF. I did speak the on-call hospital service Dr. Morris and the patient was admitted to the medicine service. Critical Care: I have personally spent 40 minutes of critical care time in direct management of this patient. This includes bedside care, interpretation of diagnostic studies, and testing, discussion with consultants, patient, and family members, and other require inpatient management activities. This 40 minutes is in excess of all separately billable procedures. Discussion w/ other healthcare providers: Dr. Morris inpatient medicine service Prior /Outside records reviewed: I reviewed part of a discharge summary from August 09, [address] Zhao. This was thought to be secondary to seizure and her Lamictal had been increased. Also recommended lowering Paxil. Differential diagnosis: [Infection, dehydration, metabolic abnormality, hypo/hyperglycemia, electrolyte imbalance, anemia, UTI, pneumonia, thyroid dysfunction among others were considered. Diagnostics, as interpreted by me: ECG: Sinus with first-degree AV block, PVCs noted, ventricular rate of 82, prolonged [place], wide QRS, left bundle branch block pattern, normal axis. Cardiac monitoring: An order was placed for continuous cardiac monitoring. The monitor shows a rate of 85 with sinus rhythm. Patient was placed on pulse oximetry Medical decision rules: None Imaging studies: I informally interpreted the patient's chest x-ray without obvious consolidated pneumonia with formal report to follow. HPI: Patient presents from [facility] in [place]. Patient reportedly is having an episode of unresponsiveness. Limited history given the patient is not responsive to verbal commands at the bedside nursing reports that she is coming from [facility] patient was being treated for UTI and sometimes has low potassium. No reported falls or trauma. I did speak with the patient's daughter reported that this is the fourth time since July that she has presented for episodes of change in behavior. She does have a history of dementia. She did report that sometimes magnesium potassium are low. Vitals were relatively unremarkable with the BSG in the 190s prior to arrival. Reviewed the medication list does not the patient is on Lantus. Patient is also on Plavix. PAST MEDICAL HISTORY: See Below PAST SURGICAL HISTORY: See Below SOCIAL HISTORY: See Below HOME MEDICATIONS: See Below ALLERGIES: See Below VITALS: See Below PHYSICAL EXAMINATION: GENERAL: NAD, non-toxic. EYE EXAM: Normal conjunctiva. PERRL, no anisocoria and EOM's grossly intact w/o pain. OROPHARYNX: Moist mucus membranes, grossly normal dentition. NECK: Trachea midline, no stridor. LUNGS: Clear to auscultation. Normal chest wall mechanics. HEART: NSR, no MRG. ABDOMEN: Abdomen soft, non-tender, no masses, no rebound or guarding. BACK: No CVA TTP. SKIN: No rashes and no bruising. UPPER EXTREMITIES: Upper extremities are grossly normal. LOWER EXTREMITIES: Grossly normal, no edema. NEURO EXAM: Does not follow commands does respond to sternal rubs. Does try to keep eyes closed when trying to open them manually. Past Med/Surg History Problem List (Updated 08/15/25 @ 16:29 by Waylon Baker MD) Hypoxia (Acute) Unresponsive episode (Acute) GERD (gastroesophageal reflux disease) HLD (hyperlipidemia) Ascending aorta dilatation HTN (hypertension) Hypothyroidism Seizure, late effect of stroke Vascular dementia Essential tremor Chronic cerebral ischemia (Chronic) Seizure disorder (Acute) HFrEF (heart failure with reduced ejection fraction) Cardiomyopathy Cerebrovascular disease (Chronic) Gait apraxia (Chronic) Morbid obesity (Chronic) Medical History 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 Acute respiratory failure with hypoxia Nonobstructive atherosclerosis of coronary artery Thoracic aortic aneurysm LBBB (left bundle branch block) Depression Infarction of kidney Neuropathy Recurrent UTI (urinary tract infection) Strain of rotator cuff of right shoulder Surgical History S/P colonoscopy S/P hysterectomy S/P appendectomy History of back surgery Status post right knee replacement No pertinent past surgical history Family History Mother Heart disease Dementia Father Lung cancer Social History Smoking Status: Unknown if ever smoked Second Hand Exposure: No; Do You Dip or Chew Tobacco: No; Hx Alcohol Use: No Hx Substance Use: No Preferred Language: Palestinian Communication Ability: Impaired Communication Ability Comment: confused, but clear Visual Impairment: No Limitations Hearing Ability: Normal Stock Counter Required: No Beliefs That Will Affect Care: None marital status: / Current Living Situation: Personal Care Facility Current Living Situation Comment: [facility] current occupational status: retired 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 How many Children do You have: 4 Feels Safe at Home: Declines to Answer Childhood Exposure to Second-Hand Smoke: No Diet: diabetic Dental Care, Regularly: No Physical Activity Frequency: Does not Exercise Seatbelt Use: always Sunscreen Use: No Assistive Devices: Oxygen - Continuous and Walker Allergies Allergies Allergy/AdvReac Type Severity Reaction Status Date / Time aspirin Allergy Severe Hives Verified 08/12/25 13:27 NSAIDS (Non-Steroidal Allergy Intermediate Hives Verified 08/12/25 13:27 Anti-Inflamma Penicillins Allergy Intermediate Hives Verified 08/12/25 13:27 vancomycin Allergy Intermediate Redness of Verified 08/12/25 13:27 Skin fenofibrate Allergy Unknown ON PT MED Verified 08/12/25 13:27 LIST naproxen Allergy Unknown Unknown - Verified 08/12/25 13:27 On Med List from [facility] propoxyphene Allergy Unknown ON PT MED Verified 08/12/25 13:27 LIST Home Meds Home Medications Medication Instructions Recorded Confirmed cholecalciferol (vitamin D3) 25 25 mcg PO QAM 03/17/23 08/15/25 mcg (1,000 unit) capsule (Vitamin D3) levothyroxine 25 mcg tablet 25 mcg PO DAILYBB 03/17/23 08/15/25 (Synthroid) diclofenac sodium 1 % topical gel 2 g topical QID PRN Pain 02/05/24 08/15/25 emollient combination no.92 1 applic topical BID Dry skin - 02/05/24 08/15/25 (Lubriderm Daily Moisture lotion) Legs loperamide 2 mg capsule 2 mg PO UD PRN Diarrhea 02/05/24 08/15/25 omeprazole 40 mg capsule,delayed 40 mg PO DAILYBB 02/05/24 08/15/25 release acetaminophen 650 mg 650 mg PO .Q4 PRN fever or pain 01/25/25 08/15/25 tablet,extended release dextromethorphan-guaifenesin 20 20 ml PO Q6 PRN Cough 01/25/25 08/15/25 mg-200 mg/5 mL oral elixir dextromethorphan-guaifenesin 30 2 tab PO Q12H PRN cough 01/25/25 08/15/25 mg-600 mg tablet extended [id number] hr (Mucinex DM) hydroxyzine HCl 10 mg tablet 10 mg PO Q6H PRN Anxiety 07/19/25 08/15/25 insulin glargine 100 unit/mL (3 18 unit subcut HS 07/19/25 08/15/25 mL) subcutaneous pen (Lantus Solostar U-100 Insulin) metformin 1,000 mg tablet 1,000 mg PO UD 07/19/25 08/15/25 multivitamin 1 tab PO DAILY 08/08/25 08/15/25 furosemide 40 mg tablet (Lasix) 80 mg PO DAILY .EDEMA/WT GAIN 08/11/25 08/15/25 potassium chloride 20 mEq 20 meq PO DAILY .When lasix is 08/11/25 08/15/25 tablet,extended release given cranberry 30,000 mg PO DAILY Chronic UTI 08/15/25 08/15/25 diclofenac sodium 1 % topical gel 2 g topical TID 08/15/25 08/15/25 furosemide 40 mg tablet 80 mg PO DAILY PRN edema/weight 08/15/25 08/15/25 gain nystatin 100,000 unit/gram topical 1 applic topical BID PRN Other 08/15/25 08/15/25 ointment potassium chloride 20 mEq 20 meq PO DAILY PRN Other 08/15/25 08/15/25 tablet,extended release Previous Rx's Medication Instructions Recorded clopidogrel 75 mg tablet 75 mg PO QAM #30 tabs 04/28/23 ferrous sulfate 325 mg (65 mg 325 mg PO Q48H #20 tabs 06/10/24 iron) tablet,delayed release carvedilol 6.25 mg tablet 6.25 mg PO BID #60 tabs 07/18/25 cyanocobalamin (vitamin B-12) 500 1,000 mcg (2 x 500 mcg) PO QAM #60 08/03/25 mcg tablet tabs lamotrigine 150 mg tablet 150 mg PO BID #60 tabs 08/09/25 (Subvenite) magnesium oxide 400 mg (2 x 200 mg magnesium) PO 08/09/25 DAILY #60 tabs paroxetine HCl 10 mg tablet (Paxil) 10 mg PO DAILY #30 tabs 08/12/25 Portable Oxygen #1 ea 08/15/25 Results & Data (ED) Vital Signs Vital Signs - 24 hr 08/15/25 08:50 08/15/25 09:15 08/15/25 09:24 Temperature 36.8 C Temperature Source Oral Pulse Rate 82 81 82 Pulse Rate [Apical] Pulse Rhythm Regular Pulse Rhythm [Apical] Pulse Strength Normal Pulse Strength [Apical] Respiratory Rate 18 17 Respiratory Effort / Characteristics Non-Labored Spontaneous Non-Labored Spontaneous Respiratory Depth Normal Normal Respiratory Pattern Regular Regular Blood Pressure 139/91 Blood Pressure [Right Arm] Blood Pressure Mean 107 Blood Pressure Mean [Right Arm] Pulse Oximetry 95 95 Oxygen Delivery Method Nasal Cannula Oxygen Flow Rate 2 Fraction of Inspired Oxygen 30 Sepsis Recent Fever Within 48 Hours No Sepsis New/Unexplained Change in Mental Status Yes Sepsis Action Taken by Nursing No Action Required 08/15/25 09:28 08/15/25 09:30 08/15/25 10:16 Temperature Temperature Source Pulse Rate 75 Pulse Rate [Apical] 80 Pulse Rhythm Pulse Rhythm [Apical] Pulse Strength Pulse Strength [Apical] Respiratory Rate 17 18 Respiratory Effort / Characteristics Non-Labored Spontaneous Non-Labored Spontaneous Respiratory Depth Normal Normal Respiratory Pattern Regular Regular Blood Pressure Blood Pressure [Right Arm] 135/85 Blood Pressure Mean Blood Pressure Mean [Right Arm] 101 Pulse Oximetry 94 94 Oxygen Delivery Method BiPAP BiPAP Oxygen Flow Rate Fraction of Inspired Oxygen 30 Sepsis Recent Fever Within 48 Hours Sepsis New/Unexplained Change in Mental Status Sepsis Action Taken by Nursing 08/15/25 10:30 08/15/25 10:45 Temperature Temperature Source Pulse Rate Pulse Rate [Apical] 75 75 Pulse Rhythm Pulse Rhythm [Apical] Regular Pulse Strength Pulse Strength [Apical] Normal Normal Respiratory Rate 18 15 Respiratory Effort / Characteristics Non-Labored Spontaneous Spontaneous Respiratory Depth Normal Normal Respiratory Pattern Regular Regular Blood Pressure Blood Pressure [Right Arm] 147/66 H 147/66 H Blood Pressure Mean Blood Pressure Mean [Right Arm] 93 93 Pulse Oximetry 97 95 Oxygen Delivery Method Nasal Cannula Nasal Cannula Oxygen Flow Rate 3 3 Fraction of Inspired Oxygen Sepsis Recent Fever Within 48 Hours Sepsis New/Unexplained Change in Mental Status Sepsis Action Taken by [facility] Medications Current Medication List: was personally reviewed by me Laboratory Data Attestation: I reviewed the patient's lab results. 08/15/25 09:35 08/15/25 09:35 Lab Results 08/15/25 08/15/25 08/15/25 Range/Units 09:35 09:38 09:55 WBC 6.05 (4.8-10.8) K/ul RBC 4.20 (4.20-5.40) M/uL Hgb 13.7 (12.0-16.0) g/dl Hct 40.8 (37.0-47.0) % MCV 97.1 (80.0-100.0) fL MCH 32.6 (25.0-34.0) pg MCHC 33.6 (32.0-36.0) g/dL RDW Std Deviation 44.3 (36.4-46.3) fL RDW Coeff of Sam 12.3 (11.5-14.5) % Plt Count 205 (130-400) K/uL MPV 9.7 (9.4-12.4) fL Immature Gran % (Auto) 0.2 % Neut % (Auto) 48.8 % Lymph % (Auto) 33.4 % [place] % (Auto) 10.6 % Eos % (Auto) 6.0 % Baso % (Auto) 1.0 % Neut # (Auto) 2.96 (1.40-6.50) K/uL Lymph # (Auto) 2.02 (1.20-3.40) K/uL [place] # (Auto) 0.64 H (0.11-0.59) K/uL Eos # (Auto) 0.36 (0.00-0.50) K/uL Baso # (Auto) 0.06 (0.00-0.20) K/uL Immature Gran # (Auto) 0.01 (0.01-0.20) K/uL PT Cancelled INR Cancelled APTT Cancelled PTT Ratio Cancelled VBG pH 7.37 (7.36-7.41) VBG pCO2 61 H (38-50) mmHg VBG pO2 39 mmHg VBG HCO3 35 mmol/L VBG O2 Saturation 63.3 % VBG Base Excess 7.8 mEq/L Sodium 140 (136-145) mmol/L Potassium 3.7 (3.5-5.1) mmol/L Chloride 98 (98-107) mmol/L Carbon Dioxide 33 H (21-32) mmol/L Anion Gap 9 (3-11) BUN 10 (6-23) mg/dl Creatinine 1.04 (0.6-1.2) mg/dl Est Cr Clr Drug Dosing 53.2 ml/min eGFR 54.00 BUN/Creatinine Ratio 9.6 L (10-20) Glucose 177 H (70-99(Fasting)) mg/dl Lactate 2.4 H* (0.4-2.0) mmol/L Calcium 9.5 (8.6-10.3) mg/dl Magnesium 1.7 (1.7-2.4) mg/dl Total Bilirubin 0.9 (0.2-1.0) mg/dl Direct Bilirubin 0.1 (0-0.2) mg/dl AST 15 (13-39) U/L ALT 11 (7-52) U/L Alkaline Phosphatase 51 (34-104) U/L Troponin I High Sens 16.1 H (0-14) pg/ml Total Protein 7.2 (6.0-8.3) gm/dl Albumin 4.0 (3.4-5.0) gm/dl Procalcitonin 0.03 (0-0.5) ng/ml Urine Color Yellow Urine Appearance Clear (Clear) Urine pH 8.5 H (4.5-7.5) Ur Specific [place] 1.006 (1.000-1.030) Urine Protein Negative (Negative) Urine Glucose (UA) Negative (Negative) Urine Ketones Negative (Negative) Urine Blood Negative (Negative) Urine Nitrite Negative (Negative) Urine Bilirubin Negative (Negative) Urine Urobilinogen Negative (Negative) Ur Leukocyte Esterase Negative (Negative) Urine Comment Ethyl Alcohol mg/dL < 10.0 (<10.0) mg/dl 08/15/25 Range/Units 10:25 WBC (4.8-10.8) K/ul RBC (4.20-5.40) M/uL Hgb (12.0-16.0) g/dl Hct (37.0-47.0) % MCV (80.0-100.0) fL MCH (25.0-34.0) pg MCHC (32.0-36.0) g/dL RDW Std Deviation (36.4-46.3) fL RDW Coeff of Sam (11.5-14.5) % Plt Count (130-400) K/uL MPV (9.4-12.4) fL Immature Gran % (Auto) % Neut % (Auto) % Lymph % (Auto) % [place] % (Auto) % Eos % (Auto) % Baso % (Auto) % Neut # (Auto) (1.40-6.50) K/uL Lymph # (Auto) (1.20-3.40) K/uL [place] # (Auto) (0.11-0.59) K/uL Eos # (Auto) (0.00-0.50) K/uL Baso # (Auto) (0.00-0.20) K/uL Immature Gran # (Auto) (0.01-0.20) K/uL PT 10.8 INR 1.0 APTT 25 PTT Ratio 0.9 VBG pH (7.36-7.41) VBG pCO2 (38-50) mmHg VBG pO2 mmHg VBG HCO3 mmol/L VBG O2 Saturation % VBG Base Excess mEq/L Sodium (136-145) mmol/L Potassium (3.5-5.1) mmol/L Chloride (98-107) mmol/L Carbon Dioxide (21-32) mmol/L Anion Gap (3-11) BUN (6-23) mg/dl Creatinine (0.6-1.2) mg/dl Est Cr Clr Drug Dosing ml/min eGFR BUN/Creatinine Ratio (10-20) Glucose (70-99(Fasting)) mg/dl Lactate (0.4-2.0) mmol/L Calcium (8.6-10.3) mg/dl Magnesium (1.7-2.4) mg/dl Total Bilirubin (0.2-1.0) mg/dl Direct Bilirubin (0-0.2) mg/dl AST (13-39) U/L ALT (7-52) U/L Alkaline Phosphatase (34-104) U/L Troponin I High Sens (0-14) pg/ml Total Protein (6.0-8.3) gm/dl Albumin (3.4-5.0) gm/dl Procalcitonin (0-0.5) ng/ml Urine Color Urine Appearance (Clear) Urine pH (4.5-7.5) Ur Specific [place] (1.000-1.030) Urine Protein (Negative) Urine Glucose (UA) (Negative) Urine Ketones (Negative) Urine Blood (Negative) Urine Nitrite (Negative) Urine Bilirubin (Negative) Urine Urobilinogen (Negative) Ur Leukocyte Esterase (Negative) Urine Comment Ethyl Alcohol mg/dL (<10.0) mg/dl Administered Medications Enoxaparin Sodium (Enoxaparin Inj 40 Mg/0.4 Ml Syr) 40 mg SQ Q24H ROSANNA Stop: 09/14/25 13:59 Last Admin: 08/15/25 13:59 Dose: 40 mg Documented By: TDM Ferrous Sulfate (Ferrous Sulfate 325 Mg Tab) 325 mg PO Q48H ROSANNA Stop: 09/14/25 13:59 Last Admin: 08/15/25 13:59 Dose: 325 mg Documented By: TDM Lactated Ringer's (Lr) 1,000 mls @ 125 mls/hr IV .Q8H ROSANNA Stop: 08/16/25 05:29 Last Admin: 08/15/25 13:59 Dose: 125 mls/hr Documented By: TDM Imaging Data Radiologist's Impression: Chest X-Ray 08/15/25 09:02 XR chest 1V portable CLINICAL HISTORY: Sepsis COMPARISON STUDY: 08/08/2025 FINDINGS: Stable cardiomegaly with pulmonary vascular congestion. No consolidation or pleural effusion seen. No pneumothorax. IMPRESSION: Stable mild CHF. ACT 112: Negative or not required by law. Electronically signed by: Milad Unger M.D. 08/15/2025 10:[address] 08/15/25 09:02 CT SCAN OF THE BRAIN WITHOUT IV CONTRAST CLINICAL HISTORY: Change in mental status COMPARISON STUDY: 08/08/2025 TECHNIQUE: Unenhanced axial CT scan of the brain was performed from the vertex to the skull base. A dose lowering technique was utilized adhering to the principles of ALARA. CT DOSE: 625.8 mGy.cm FINDINGS: No intra or extra-axial mass lesions are visualized. Areas of prior infarction are again visualized within the left posterior inferior cerebellum, right cerebellum, left parietal lobe, and right temporal parietal region. No new areas of cortical infarction are visualized. There is no hydrocephalus. There is no evidence of acute hemorrhage. Scattered white matter hypodensities are likely a small vessel ischemic basis. The paranasal sinuses are clear. IMPRESSION: 1. Old bilateral cerebral and cerebellar infarcts 2. No CT evidence of acute cortical infarction. 3. No evidence of acute hemorrhage. No evidence of hydrocephalus. ACT 112: Negative or not required by law. Electronically signed by: Barrington Islas M.D. 08/15/2025 10:18 AM Discharge Plan Visit Data Chief Complaint: Unresponsive Stated Complaint: UNRESPONSIVE ED Provider: Waylon Baker Discharge Problem: Unresponsive episode, Hypoxia Patient Disposition: Admitted As Inpatient Condition: Good Discharge Instructions Interventions: ED Discharge Assessment Last Done: 08/15/25 13:20
[2025-08-15 09:59] LABS: Hematocrit (blood only) 40.8 % (37.0-47.0); Hemoglobin 13.7 g/dl (12.0-16.0); Immature Granulocytes # (auto) 0.01 K/uL (0.01-0.20); Immature Granulocytes % (auto) 0.2 %; Mean Corpuscular Hemoglobin 32.6 pg (25.0-34.0); Mean Corpuscular Volume 97.1 fL (80.0-100.0); Platelet Count 205 K/uL (130-400); RDW Standard Deviation 44.3 fL (36.4-46.3); Red Blood Count 4.20 M/uL (4.20-5.40); White Blood Count 6.05 K/ul (4.8-10.8)
[2025-08-15 10:00] LABS: Base Excess VBG 7.8 mEq/L; HCO3 VBG 35 mmol/L; Oxygen Saturation VBG 63.3 %; PCO2 VBG 61 mmHg (38-50); PO2 VBG 39 mmHg; pH VBG 7.37 (7.36-7.41)
[2025-08-15 10:12] LABS: Appearance Urine Clear (Clear); Glucose Urine UA Negative (Negative)
--- NOTE | 2025-08-15 10:19 | CT Scan Report ---
CT SCAN OF THE BRAIN WITHOUT IV CONTRAST CLINICAL HISTORY: Change in mental status COMPARISON STUDY: 08/08/2025 TECHNIQUE: Unenhanced axial CT scan of the brain was performed from the vertex to the skull base. A dose lowering technique was utilized adhering to the principles of ALARA. CT DOSE: 625.8 mGy.cm FINDINGS: No intra or extra-axial mass lesions are visualized. Areas of prior infarction are again visualized w ithin the left posterior inferior cerebellum, right cerebellum, left parietal lobe, and right tempora l parietal region. No new areas of cortical infarction are visualized. There is no hydrocephalus. There is no evidence of acute hemorrhage. Scattered white matter hypodensities are likely a small vessel ischemic basis. The paranasal sinuses are clear. IMPRESSION: 1. Old bilateral cerebral and cerebellar infarcts 2. No CT evidence of acute cortical infarction. 3. No evidence of acute hemorrhage. No evidence of hydrocephalus. ACT 112: Negative or not required by law. Electronically signed by: Barrington Islas M.D. 08/15/2025 10:18 AM
[2025-08-15 10:21] LABS: Albumin Level 4.0 gm/dl (3.4-5.0); Anion Gap 9.0 (3-11); Bilirubin,Total 0.9 mg/dl (0.2-1.0); Calcium 9.5 mg/dl (8.6-10.3); Carbon Dioxide 33.0 mmol/L (21-32); Chloride 98.0 mmol/L (98-107); Magnesium 1.7 mg/dl (1.7-2.4); Potassium 3.7 mmol/L (3.5-5.1); Sodium 140.0 mmol/L (136-145)
[2025-08-15 10:27] LABS: Alanine Aminotransferase 11.0 U/L (7-52); Alkaline Phosphatase 51.0 U/L (34-104); Blood Urea Nitrogen 10.0 mg/dl (6-23); Creatinine Clr Calc Pharmacy 53.2 ml/min; Glucose 177.0 mg/dl (70-99(Fasting)); Total Protein 7.2 gm/dl (6.0-8.3)
--- NOTE | 2025-08-15 10:41 | XRay Report ---
XR chest 1V portable CLINICAL HISTORY: Sepsis COMPARISON STUDY: 08/08/2025 FINDINGS: Stable cardiomegaly with pulmonary vascular congestion. No consolidation or pleural effusio n seen. No pneumothorax. IMPRESSION: Stable mild CHF. ACT 112: Negative or not required by law. Electronically signed by: Milad Unger M.D. 08/15/2025 10:40 AM
[2025-08-15 11:07] LABS: INR 1.0 (0.9-1.1); Partial Thromboplastin Time 25 Seconds (21-31); Prothrombin Time 10.8 Seconds (9.0-12.0)
--- NOTE | 2025-08-15 12:57 | History & Physical Report ---
Date of Service August 15, 2025 Assessment & Plan (1) Ascending aorta dilatation: (2) Morbid obesity: (3) Unresponsive episode: (4) Seizure, late effect of stroke: (5) Vascular dementia: Plan In summary this is an 79-year-old female who presents with a transient episode of unresponsiveness without loss of pulse or respiratory drive at their care facility and spontaneously regained consciousness with little medical intervention in the emergency department; she is admitted for observation overnight and anticipate discharge unless further complications arise Unclear cause of the patient's diminished responsiveness leading to her presentation; she was recently hospitalized with adjustment of their SSRI therapy to minimize their effect on her seizure threshold as well as Lamictal dosing; serum electrolytes currently pending -Monitor clinical status -Check serum lamictal Persistent lactic acidosis Unclear cause at this time; the patient appears to be hemodynamically stable and with adequate perfusion without additional organ injury; given the patient's stability and establish reduced ejection fraction, intravenous fluids will be provided at 75% of the patient's calculated maintenance rate for 2 L total along with p.o. ad arlette. intake History of Present Illness Chief Complaint: Diminished responsiveness Primary Care Provider: The Ramiro Mendez Ms. Mccormack whose active medical conditions include vascular dementia, multiple prior cerebrovascular accidents without clear focal neurologic deficit, left temporal epilepsy, heart failure with reduced ejection fraction in the setting of ischemic cardiomyopathy among other chronic medical conditions who presented to [facility] on 08/15 due to a episode of unresponsiveness at her care facility on the same morning of presentation. At the time of transportation to the emergency department she was slightly hypoxic requiring 2 L by nasal cannula; due to her appearance at the time of presentation she was placed on rescue BiPAP and eventually recovered back to nasal cannula for oxygen supplementation. At the time my exam the patient is responsive but very fatigued; she denies any current discomfort, palpitations, shortness of breath, orthopnea, recent fevers or chills. Due to her fatigue, she is not very participatory in review of systems. Allergies Allergy/AdvReac Type Severity Reaction Status Date / Time aspirin Allergy Severe Hives Verified 08/12/25 13:27 NSAIDS (Non-Steroidal Allergy Intermediate Hives Verified 08/12/25 13:27 Anti-Inflamma Penicillins Allergy Intermediate Hives Verified 08/12/25 13:27 vancomycin Allergy Intermediate Redness of Verified 08/12/25 13:27 Skin fenofibrate Allergy Unknown ON PT MED Verified 08/12/25 13:27 LIST naproxen Allergy Unknown Unknown - Verified 08/12/25 13:27 On Med List from [facility] propoxyphene Allergy Unknown ON PT MED Verified 08/12/25 13:27 LIST Home Medications Medication Instructions Recorded Confirmed Type cholecalciferol (vitamin D3) 25 25 mcg PO QAM 03/17/23 08/15/25 History mcg (1,000 unit) capsule (Vitamin D3) levothyroxine 25 mcg tablet 25 mcg PO DAILYBB 03/17/23 08/15/25 History (Synthroid) clopidogrel 75 mg tablet 75 mg PO QAM #30 tabs 04/28/23 08/15/25 Rx diclofenac sodium 1 % topical gel 2 g topical QID PRN Pain 02/05/24 08/15/25 History emollient combination no.92 1 applic topical BID Dry skin - 02/05/24 08/15/25 History (Lubriderm Daily Moisture lotion) Legs loperamide 2 mg capsule 2 mg PO UD PRN Diarrhea 02/05/24 08/15/25 History omeprazole 40 mg capsule,delayed 40 mg PO DAILYBB 02/05/24 08/15/25 History release ferrous sulfate 325 mg (65 mg 325 mg PO Q48H #20 tabs 06/10/24 08/15/25 Rx iron) tablet,delayed release acetaminophen 650 mg 650 mg PO .Q4 PRN fever or pain 01/25/25 08/15/25 History tablet,extended release dextromethorphan-guaifenesin 20 20 ml PO Q6 PRN Cough 01/25/25 08/15/25 History mg-200 mg/5 mL oral elixir dextromethorphan-guaifenesin 30 2 tab PO Q12H PRN cough 01/25/25 08/15/25 History mg-600 mg tablet extended hr (Mucinex DM) carvedilol 6.25 mg tablet 6.25 mg PO BID #60 tabs 07/18/25 08/15/25 Rx hydroxyzine HCl 10 mg tablet 10 mg PO Q6H PRN Anxiety 07/19/25 08/15/25 History insulin glargine 100 unit/mL (3 18 unit subcut HS 07/19/25 08/15/25 History mL) subcutaneous pen (Lantus Solostar U-100 Insulin) metformin 1,000 mg tablet 1,000 mg PO UD 07/19/25 08/15/25 History cyanocobalamin (vitamin B-12) 500 1,000 mcg (2 x 500 mcg) PO QAM #60 08/03/25 08/15/25 Rx mcg tablet tabs multivitamin 1 tab PO DAILY 08/08/25 08/15/25 History lamotrigine 150 mg tablet 150 mg PO BID #60 tabs 08/09/25 08/15/25 Rx (Subvenite) magnesium oxide 400 mg (2 x 200 mg magnesium) PO 08/09/25 08/15/25 Rx DAILY #60 tabs furosemide 40 mg tablet (Lasix) 80 mg PO DAILY .EDEMA/WT GAIN 08/11/25 08/15/25 History potassium chloride 20 mEq 20 meq PO DAILY .When lasix is 08/11/25 08/15/25 History tablet,extended release given paroxetine HCl 10 mg tablet (Paxil) 10 mg PO DAILY #30 tabs 08/12/25 08/15/25 Rx Portable Oxygen #1 ea 08/15/25 Rx cranberry 30,000 mg PO DAILY Chronic UTI 08/15/25 08/15/25 History diclofenac sodium 1 % topical gel 2 g topical TID 08/15/25 08/15/25 History furosemide 40 mg tablet 80 mg PO DAILY PRN edema/weight 08/15/25 08/15/25 History gain nystatin 100,000 unit/gram topical 1 applic topical BID PRN Other 08/15/25 08/15/25 History ointment potassium chloride 20 mEq 20 meq PO DAILY PRN Other 08/15/25 08/15/25 History tablet,extended release Past Med/Surg History Problem List (Updated 08/15/25 @ 13:46 by Elías Morris DO) Unresponsive episode GERD (gastroesophageal reflux disease) HLD (hyperlipidemia) Ascending aorta dilatation HTN (hypertension) Hypothyroidism Seizure, late effect of stroke Vascular dementia Essential tremor Chronic cerebral ischemia (Chronic) Seizure disorder (Acute) HFrEF (heart failure with reduced ejection fraction) Cardiomyopathy Cerebrovascular disease (Chronic) Gait apraxia (Chronic) Morbid obesity (Chronic) Medical History 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 Acute respiratory failure with hypoxia Nonobstructive atherosclerosis of coronary artery Thoracic aortic aneurysm LBBB (left bundle branch block) Depression Infarction of kidney Neuropathy Recurrent UTI (urinary tract infection) Strain of rotator cuff of right shoulder Surgical History S/P colonoscopy S/P hysterectomy S/P appendectomy History of back surgery Status post right knee replacement No pertinent past surgical history Family History Mother Heart disease Dementia Father Lung cancer Social History Smoking Status: Unknown if ever smoked Second Hand Exposure: No; Do You Dip or Chew Tobacco: No; Hx Alcohol Use: No Hx Substance Use: No Preferred Language: Persian Communication Ability: Impaired Communication Ability Comment: confused, but clear Visual Impairment: No Limitations Hearing Ability: Normal Breastfeeding Peer Counselor Required: No Beliefs That Will Affect Care: None marital status: / Current Living Situation: Personal Care Facility Current Living Situation Comment: [facility] current occupational status: retired 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 How many Children do You have: 4 Feels Safe at Home: Declines to Answer Childhood Exposure to Second-Hand Smoke: No Diet: diabetic Dental Care, Regularly: No Physical Activity Frequency: Does not Exercise Seatbelt Use: always Sunscreen Use: No Assistive Devices: Oxygen - Continuous and Walker Review of Systems Review of Systems: Review of constitutional, cardiovascular, pulmonary, neurologic, gastrointestinal, genitourinary, musculoskeletal systems was unremarkable except for pertinent positive and negative findings discussed above Physical Exam Physical Exam: General: Elderly female in no acute distress Vital Signs: Reviewed; requiring 4 L by nasal cannula to maintain O2 saturation greater than 96% HEENT: Pupils equally round and reactive to light; extraocular motion intact; moist mucous membranes Neck: Prominent jugular venous distention approximately 3 cm cephalad of the clavicular border when lying supine; hepatojugular reflux was noted however is not diagnostically sensitive while the patient is fully supine and was not willing to rise to 30 degrees Pulmonary: Symmetrically reduced chest wall excursion secondary to body habitus; clear to auscultation bilaterally Cardiovascular: Regular rate and rhythm without murmur, rub, or gallop; S1 and S2 normal; right radial pulse 2+; mixed lipedema and pitting edema of the lower extremities distal of the knee Gastrointestinal: Soft, protuberant; nontender throughout Neurologic: Cranial nerves II through XII grossly intact; no discernible focal weakness no paresthesias; oriented to self, place, time; uncertain of the circumstances that led to her current hospitalization Results & Data Results & Data Vital Signs (Past 12 Hours) Vital Signs Temp Pulse Pulse Resp BP BP Pulse Ox 08/15/25 12:00 77 18 146/92 H 94 08/15/25 11:45 75 20 141/87 H 94 08/15/25 11:30 78 20 138/91 93 08/15/25 11:00 77 12 148/78 H 94 08/15/25 10:45 75 15 147/66 H 95 08/15/25 10:30 75 18 147/66 H 97 08/15/25 10:16 75 18 94 08/15/25 09:30 80 17 135/85 94 08/15/25 09:28 08/15/25 09:24 82 17 95 08/15/25 09:15 81 08/15/25 08:50 36.8 C 82 18 139/91 95 O2 Del Method O2 Flow Rate FiO2 08/15/25 12:00 Nasal Cannula 3 08/15/25 11:45 Nasal Cannula 3 08/15/25 11:30 Nasal Cannula 3 08/15/25 11:00 Nasal Cannula 3 08/15/25 10:45 Nasal Cannula 3 08/15/25 10:30 Nasal Cannula 3 08/15/25 10:16 30 08/15/25 09:30 BiPAP 08/15/25 09:28 BiPAP 08/15/25 09:24 30 08/15/25 09:15 08/15/25 08:50 Nasal Cannula 2 Laboratory Results Persistent lactic acidosis of 2.5, 2.6 Code Status & VTE Plan Code Status Full code VTE Prophylaxis Plan VTE Prophylaxis will be ordered: Yes PG Care Time/CCT Total # of Minutes Spent Total Time Spent with Patient: Total time spent is greater than 50% in coordination of care (as documented) at patient's floor/unit and/or counseling patient: Coding Level of Care Code 70756 INT INP/OBS CARE 2/55MIN Diagnoses Ascending aorta dilatation I77.810 Morbid obesity E66.01 Unresponsive episode R40.4 Seizure, late effect of stroke I69.398; R56.9 Moderate vascular dementia with other behavioral disturbance F01.B18 Dementia severity: moderate Dementia behavioral or psychological symptom: with other behavioral disturbance (5) Vascular dementia Dementia severity: moderate Dementia behavioral or psychological symptom: with other behavioral disturbance Qualified Code(s): F01.B18 - Vascular dementia, moderate, with other behavioral disturbance
[2025-08-15] MEDS ORDERED: LOPERAMIDE HCL 2 MG CAP PO PRN (13:19)
[2025-08-15] MEDS ORDERED: POTASSIUM CHLORIDE CRTAB 20 MEQ TABCR PO PRN (13:19)
[2025-08-15] MEDS: FERROUS SULFATE 325 MG TAB PO SCH (13:59)
[2025-08-15] MEDS: LACTATED RINGER'S 1,000 ML IV SCH (13:59)
[2025-08-15] MEDS: ENOXAPARIN INJ 40 MG/0.4 ML SYR SQ SCH (13:59)
[2025-08-15] MEDS ORDERED: DICLOFENAC SOD 1% GEL 100 GM TUBE EXT SCH (14:00)
[2025-08-15] MEDS ORDERED: GLUCAGON FOR INJ 1 MG VIAL SQ PRN ×2 (15:30→18:34)
[2025-08-15] MEDS ORDERED: CARBOHYDRATES FOR HYPOGLYCEMIA PO PRN ×2 (15:30→18:34)
[2025-08-15] MEDS ORDERED: GLUCOSE 10 TAB/TUBE PO PRN ×2 (15:30→18:34)
[2025-08-15] MEDS ORDERED: DEXTROSE 50% 50 ML SYRINGE IV PRN ×2 (15:30→18:34)
[2025-08-15] MEDS ORDERED: GLUCOSE 40% GEL 15 GM TUBE PO PRN ×2 (15:30→18:34)
[2025-08-15] MEDS ORDERED: PHARMACY GLYCEMIC MGMT CONSULT PRN (18:34)
[2025-08-15] MEDS: LANTUS PER UNIT CHARGE SC SCH (20:01)
[2025-08-15] MEDS: INSULIN ASPART PER UNIT CHARGE SC SCH (20:03)
[2025-08-15] MEDS: lamoTRIgine 100 MG TAB PO SCH (20:05)
[2025-08-15] MEDS ORDERED: LANTUS PER UNIT CHARGE SC SCH ×2 (21:00)
[2025-08-16] MEDS: LEVOTHYROXINE SODIUM 25 MCG TABLET PO SCH (05:34)
[2025-08-16 07:36] VITALS: RESP 18; TEMP 97.7
--- NOTE | 2025-08-16 07:57 | Hospitalist Progress Note ---
Date of Service August 16, 2025 Assessment & Plan Admission and Anticipated Discharge Date Admission Date: August 15, 2025 Results & Data Results & Data Vital Signs (Past 12 Hours) Vital Signs Temp Pulse Resp BP Pulse Ox O2 Del Method O2 Flow Rate 08/16/25 07:35 36.5 C 85 18 175/83 H 97 Nasal Cannula 3 08/15/25 20:07 36.7 C 77 16 128/73 98 Nasal Cannula 3 08/15/25 20:00 Nasal Cannula 3 PG Care Time/CCT Total # of Minutes Spent Total Time Spent with Patient: Total time spent is greater than 50% in coordination of care (as documented) at patient's floor/unit and/or counseling patient: Coding
[2025-08-16] MEDS: CHOLECALCIFEROL 25 MCG (1000 UNITS) TAB PO SCH (09:08)
[2025-08-16] MEDS: CYANOCOBALAMIN (B-12) 500 MCG TABLET PO SCH (09:08)
[2025-08-16] MEDS: CLOPIDOGREL BISULFATE 75 MG TAB PO SCH (09:08)
[2025-08-16] MEDS: MAGNESIUM OXIDE 400 MG TAB PO SCH (09:09)
[2025-08-16] MEDS: POTASSIUM CHLORIDE CRTAB 20 MEQ TABCR PO SCH (09:10)
[2025-08-16 15:27] VITALS: BP 105/66; PULSE 76; O2SAT 96
--- NOTE | 2025-08-16 16:16 | Discharge Summary ---
Discharge Summary Date of Service August 16, 2025 Principal Dx & Hospital Course #1 = Principal Diagnosis (1) Ascending aorta dilatation: (2) Morbid obesity: (3) Unresponsive episode: (4) Seizure, late effect of stroke: (5) Vascular dementia: Plan In summary this is an 79-year-old female who presents with a transient episode of unresponsiveness without loss of pulse or respiratory drive at their care facility and spontaneously regained consciousness with little medical intervention in the emergency department; she is admitted for observation overnight and anticipate discharge unless further complications arise #Transient unresponsiveness // Suspect breakthrough seizure No clear metabolic, infectious, toxic, or structural cause of the patient's transient mental status change; suspect this was consequence of breakthrough focal seizure similar to prior presentation; recommend discontinuation of their SSRI as this lowers seizure threshold - Lamictal level pending at discharge, titration can be managed in the outpatient setting if necessary based on this result The patient does require supplemental oxygen at baseline, 2-3 L continuously; unfortunately, her portable concentrator was not brought with her to the hospital when transferred and her daughter prefers to avoid the prolonged driving time of obtaining it in order to have it for the patient's private transport home; when on room air, the patient's O2 saturation is 88-90%. Based on her CO2 retention, it is reasonable that she can be discharged and transported directly back to her personal fdc to then resume her home oxygen supplementation, which should be titrated to a goal of 88-92% given her likely diagnosis of OHS Admission HPI Per Admitting Provider Ms. Mccormack whose active medical conditions include vascular dementia, multiple prior cerebrovascular accidents without clear focal neurologic deficit, left temporal epilepsy, heart failure with reduced ejection fraction in the setting of ischemic cardiomyopathy among other chronic medical conditions who presented to the [facility] on 08/15 due to a episode of unresponsiveness at her care facility on the same morning of presentation. At the time of transportation to the emergency department she was slightly hypoxic requiring 2 L by nasal cannula; due to her appearance at the time of presentation she was placed on rescue BiPAP and eventually recovered back to nasal cannula for oxygen supplementation. At the time my exam the patient is responsive but very fatigued; she denies any current discomfort, palpitations, shortness of breath, orthopnea, recent fevers or chills. Due to her fatigue, she is not very participatory in review of systems. Discharge Exam General: Elderly female in no acute distress Vital Signs: Reviewed HEENT: Pupils equally round and reactive to light; extraocular motion intact; moist mucous membranes Pulmonary: Symmetrically reduced chest wall excursion secondary to body habitus; clear to auscultation bilaterally Cardiovascular: Regular rate and rhythm without murmur, rub, or gallop; S1 and S2 normal; right radial pulse 2+; mixed lipedema and pitting edema of the lower extremities distal of the knee Gastrointestinal: Soft, protuberant; nontender throughout Neurologic: Cranial nerves II through XII grossly intact; no discernible focal weakness no paresthesias; oriented to self, place, time Discharge Plan Discharge Items Patient Disposition: Personal Half-Way Reason For Visit: AMS Discharge Diagnosis: Breakthrough seizure Condition on Discharge: Fair Activity: Resume your previous activity Non-emergency contact: Primary Care Provider Call non-emergency contact if: you have any medication questions and your symptoms worsen Follow-up/Referrals: Aaron Mendez [Primary Care Provider] - Diet: Carb Consistent or DM2 Addtl Attending Provider Instructions: You were admitted to the [facility] due to a period of transient unresponsiveness at your personal fdc. After observation overnight, there have been no recurrent episodes. We suspect this was consequential of a recurrent seizure, similar to your earlier hospitalization in August 2025. We recommend discontinuation of your Paroxetine as it is known to reduce the seizure threshold and was not discontinued previously. We have also obtained a serum measure of your Lamictal, but this result will not be available for several days and can be follow upon while at your personal fdc. Pending Studies at Discharge: Yes (Serum lamotrigine measure) Stand-Alone Forms: My [facility] Skilled Items Patient informed of condition?: Yes DNR: No Discharge Level of Care: Other Communicable Disease: No Discharge Prognosis: Stable Lines: None Urinary Catheter: No Medications and DC Order Prescriptions: Continued (DME) Portable Oxygen Misc See Rx Instructions .Route Qty: 1 0RF Rx Instructions: As directed hydroxyzine HCl 10 mg tablet 10 mg PO Q6H PRN (Reason: Anxiety) acetaminophen 650 mg tablet extended release 650 mg PO .Q4 PRN (Reason: fever or pain) Mucinex DM 30-600 mg tablet extended release 12 hr 2 tab PO Q12H PRN (Reason: cough) dextromethorphan-guaifenesin 20-200 mg/5 mL elixir 20 ml PO Q6 PRN (Reason: Cough) clopidogrel 75 mg Tablet 75 mg PO QAM Qty: 30 0RF metformin 1,000 mg tablet 1,000 mg PO UD Rx Instructions: 1000mg po qam and 500mg po pm cholecalciferol (vitamin D3) [Vitamin D3] 25 mcg (1,000 unit) Capsule 25 mcg PO QAM levothyroxine [Synthroid] 25 mcg tablet 25 mcg PO DAILYBB Rx Instructions: for underactive thyroid gland carvedilol 6.25 mg Tablet 6.25 mg PO BID Qty: 60 0RF cyanocobalamin (vitamin B-12) 500 mcg Tablet 1,000 mcg PO QAM Qty: 60 0RF furosemide 40 mg Tablet 80 mg PO DAILY PRN (Reason: edema/weight gain) nystatin 100,000 unit/gram Ointment 1 applic TOPICAL BID PRN (Reason: Other) diclofenac sodium 1 % Gel 2 g TOPICAL TID Rx Instructions: apply to single elbow, wrist or hand; for hand includes palm/fingers/back of hand potassium chloride 20 mEq Tablet Extended Release 20 meq PO DAILY PRN (Reason: Other) cranberry 10,000 mg tablet 30,000 mg PO DAILY loperamide 2 mg capsule 2 mg PO UD MDD 8mg/24hrs PRN (Reason: Diarrhea) Rx Instructions: 1 capsule after each additional loose stool omeprazole 40 mg capsule,delayed release(DR/EC) 40 mg PO DAILYBB Lubriderm Daily Moisture Lotion 1 applic TOPICAL BID diclofenac sodium 1 % gel 2 g topical QID PRN (Reason: Pain) insulin glargine [Lantus Solostar U-100 Insulin] 100 unit/mL (3 mL) insulin pen 18 unit SUBCUT HS potassium chloride 20 mEq tablet extended release 20 meq PO DAILY ferrous sulfate 325 mg (65 mg iron) Tablet,Delayed Release (Dr/Ec) 325 mg PO Q48H Qty: 20 0RF multivitamin Tablet 1 tab PO DAILY magnesium oxide 200 mg magnesium tablet 400 mg PO DAILY Qty: 60 0RF lamotrigine [Subvenite] 150 mg tablet 150 mg PO BID Qty: 60 0RF furosemide [Lasix] 40 mg tablet 80 mg PO DAILY Rx Instructions: 40 mg orally Daily, take 80 mg as needed for 2 pound weight gain over 24 hours, 5 pound weight gain over 72 hours. Notify PCP if consistent weight gain over 5 days. Discontinued paroxetine HCl [Paxil] 10 mg tablet 10 mg PO DAILY Qty: 30 2RF Discharge Orders: Discharge Order (Routine); Ordered 08/16/25 Ordered By: Elías Morris Admission Data Admit Date/Time: 08/15/25 10:54 Attending Provider: Elías Morris Admit Provider: Elías Morris Primary Care Provider: Aaron Mendez Other Providers: Elías Morris Hospital Stay Data Consultations 08/15/25 10:34 ED Decision to Admit Stat Diagnostic Imagining Performed 08/15/25 09:02 CT head/brain wo con Stat Pending Results Patient Have Any Pending Studies at Discharge: Yes (Serum lamotrigine measure) Discharge Instructions Given to Patient (Per Discharging Provider) You were admitted to the [facility] due to a period of transient unresponsiveness at your personal fdc. After observation overnight, there have been no recurrent episodes. We suspect this was consequential of a recurrent seizure, similar to your earlier hospitalization in August 2025. We recommend discontinuation of your Paroxetine as it is known to reduce the seizure threshold and was not discontinued previously. We have also obtained a serum measure of your Lamictal, but this result will not be available for several days and can be follow upon while at your personal fdc. Total Time Total Time Spent Total Time Spent (In Minutes): I personally spent 45 minutes in the coordination of today's discharge including bedside counselling, physical exam, medication reconcillation Coding Level of Care Code 87555 INP/OBS DISCH >30 MIN Diagnoses Ascending aorta dilatation I77.810 Morbid obesity E66.01 Unresponsive episode R40.4 Seizure, late effect of stroke I69.398; R56.9 Moderate vascular dementia with other behavioral disturbance F01.B18 Dementia severity: moderate Dementia behavioral or psychological symptom: with other behavioral disturbance Home Health Attestation I certify that this patient is under my care and that I, or a physicians medical assistant per diem working with me, had a face to-face encounter that meets the home health [id number] encounter requirements with this patient. The encounter with the patient was in whole, or in part, for the following medical condition, which is the primary reason for home health care (list medical condition): I certify that, based on my findings, the following services are medically necessary home health services: My clinical findings support the need for the above services because: Further, I certify that my clinical findings support that this patient is homebound (i.e. absences from home require considerable and taxing effort and are for medical reasons or restoration services or infrequently or of short duration when for other reasons) because: Certification for Home Health Services: Based on the above findings, I certify that this patient is confined to the home and needs intermittent halfway care, physical therapy and/or speech therapy or continues to need occupational therapy. The patient is under my care, and I have initiated the establishment of the plan of care. This patient will be followed by a physician who will periodically review the plan of care.
--- NOTE | 2025-08-18 16:18 | Electrocardiogram Report ---
Test Reason : Blood Pressure : */* mmHG Vent. Rate : 82 BPM Atrial Rate : 82 BPM P-R Int : 214 ms QRS Dur : 162 ms QT Int : 454 ms P-R-T Axes : 48 13 78 degrees QTcB Int : 530 ms Sinus rhythm with 1st degree A-V block with occasional Premature ventricular complexes Left bundle branch block Abnormal ECG When compared with ECG of 08-Aug-2025 10:37, Premature ventricular complexes are now Present QRS axis Shifted right Confirmed by Miguel Rivera ([id number] on 08/18/2025 4:18:10 PM Referred By: Orion Rubio [facility] Confirmed By: Miguel Rivera
== END 2025-08-16 17:53 | disposition home or self-care (01) ==
LOC: ED 08:49 → EDINP 08:49 → 3N 13:20

== ENCOUNTER 2025-09-04 19:57 | Observation (INO) ==
[2025-09-04] MEDS: OPTIRAY 320 100ml IV ONE (20:47)
[2025-09-04] MEDS: SODIUM CHLORIDE 0.9% 250 ML IV ONE ×2 (20:55→22:09)
[2025-09-04 20:58] LABS: Alanine Aminotransferase 12.0 U/L (7-52); Albumin Globulin Ratio 1.1 (0.9-2); Albumin Level 3.7 gm/dl (3.4-5.0); Alkaline Phosphatase 53.0 U/L (34-104); Anion Gap 12.0 (3-11); Bilirubin,Total 0.7 mg/dl (0.2-1.0); Blood Urea Nitrogen 15.0 mg/dl (6-23); Calcium 9.9 mg/dl (8.6-10.3); Carbon Dioxide 28.0 mmol/L (21-32); Chloride 98.0 mmol/L (98-107); Creatinine Clr Calc Pharmacy 43.6 ml/min; Globulin 3.4 gm/dl (2.5-4.0); Glucose 244.0 mg/dl (70-99(Fasting)); Lipase 52.0 U/L (11-82); Magnesium 1.8 mg/dl (1.7-2.4); Potassium 4.0 mmol/L (3.5-5.1); Sodium 138.0 mmol/L (136-145); Total Protein 7.1 gm/dl (6.0-8.3)
--- NOTE | 2025-09-04 21:00 | Emergency Department Note ---
Impression & Plan Dehydration, Abdominal pain, Foul smelling urine, Elevated troponin ED Provider Note CHIEF COMPLAINT: Abdominal pain, ? UTI HISTORY OF PRESENTING ILLNESS: This 80-year-old female patient presents to the emergency department via EMS from [facility] for evaluation of abdominal pain and possible UTI. [facility]ent[facility] staff states that the patient has been complaining of abdominal pain intermittently throughout the day. She also has foul-smelling urine. The patient refused her Lasix dose today, but has been taking her doses the remainder of the time. The patient is confused at baseline and has had chronic unresponsive episodes for which she has been evaluated previously. No change in her baseline mental status per residential staff. The patient has not had any known fevers. No vomiting. She has not complained of chest pain or shortness of breath. REVIEW OF SYSTEMS: See HPI for pertinent positives and pertinent negatives. ALLERGIES: Aspirin, NSAIDs, penicillin, vancomycin, fenofibrate, naproxen, propoxyphene MEDICATIONS: See below PAST MEDICAL HISTORY: See below PHYSICAL EXAM: VITALS: Vitals are noted on the nurse's note and reviewed by myself. GENERAL: Non toxic, in no acute distress, non-diaphoretic. SKIN: Capillary refill <2 sec. EYES: PERRLA. EOMI. Conjunctivae without injection, sclerae without icterus. NOSE: Patent without discharge. MOUTH: Mucous membranes moist. Uvula midline. Airway patent. NECK: Supple without nuchal rigidity. HEART: Regular rate and rhythm without murmurs gallops or rubs. LUNGS: Clear to auscultation bilaterally without wheezes, rales or rhonchi. No retractions or accessory muscle use. ABDOMEN: Positive bowel sounds x 4. Normal tympanic percussion. Soft, mildly diffusely tender to palpation with increased tenderness in the suprapubic area. No masses or hepatosplenomegaly. Gaona sign negative. No CVA tenderness. No guarding, rigidity, or rebound tenderness. No focal RLQ or LLQ tenderness. : Per nursing staff, no abnormal external vaginal lesions, urethral lesions, or vaginal discharge. NEURO: Patient was alert to person and place, but not to time. Per residential staff, this appears to be her baseline. DIFFERENTIAL DIAGNOSIS: Differential diagnosis includes hepatitis, pancreatitis, cholecystitis, cholelithiasis, appendicitis, kidney stone, pyelonephritis, UTI, gastritis, gastroenteritis, mesenteric adenitis, obstruction, constipation, hernia, abdominal abscess, perforation, diverticulitis, IBD, ischemic colitis, abdominal aortic aneurysm, , ectopic , ovarian cyst, ovarian torsion, acute salpingitis, or others. ED COURSE AND MEDICAL DECISION MAKING: HISTORY FROM INDEPENDENT HISTORIAN: Additional history was obtained from [facility] staff, EMS, and the patient's daughter. MEDICATIONS GIVEN: A total of 1 L normal saline solution bolus. Rocephin 2 g IV. MONITOR: Continuous hardware engineering manager: Order was placed for continuous hardware engineering manager. Patient was placed on the hardware engineering manager and continuous pulse ox. Patient was noted to be in normal sinus rhythm at an initial rate of 90 bpm per my interpretation. EKG: EKG was interpreted by myself as sinus rhythm at 92 bpm with first-degree AV block and left bundle branch block. INTERPRETATION OF LABS: I interpreted the labs with full lab results as below in the lab section of this note. Laboratory results pertinent to the emergent complaint are discussed in the MDM section below. The patient was advised to follow up with their PCP and/or specialist(s) for further outpatient monitoring and management of any abnormal results. INTERPRETATION OF IMAGING: Imaging studies were interpreted by myself and read by radiology as per the imaging section of this note. The patient was advised to follow up with their PCP and/or specialist(s) for further outpatient management of any non-emergent abnormal findings. Chest x-ray shows no focal airspace consolidation, pneumothorax, large pleural effusion, or other acute cardiopulmonary etiology. The previously noted prominent pulmonary vascular changes on the prior exam have resolved. CT scan of the abdomen pelvis with IV contrast shows no evidence for pyelonephritis or ureteral stone. No hydronephrosis. The kidneys demonstrate stable contours. Incidental punctate nonobstructive nephrolithiasis of the inferior pole of the left kidney. Diffuse bladder wall prominence is noted with no bladder stones. Suspect normal variation. No evidence for focal high-grade bowel obstruction, diverticulitis, pneumoperitoneum, or free intraperitoneal fluid. Mild to moderate stool burden. CHRONIC MEDICAL/SOCIAL CONDITIONS AFFECTING CARE: Baseline episodes of confusion. Chronically elevated lactate levels. MDM SUMMARY: I examined the patient. The patient was sent by [facility] staff for evaluation of a possible UTI and abdominal pain. Nursing staff stated that her urine smells foul and she has been complaining of intermittent abdominal pain today. The patient did not have her dose of Lasix today, but has been taking it regularly. The patient denies any other symptoms or concerns. She has not had a fever. No vomiting. An IV lock was placed and labs were drawn. Initially the patient was only given 250 mL normal saline solution bolus given her history of CHF and concerns for fluid overload. However, after laboratory studies were received and discussion with Dr. Washington, the patient was given a total of 1 L normal saline solution bolus. Additional IV fluids were held due to concerns for fluid overload. The patient was given Rocephin 2 g IV after blood cultures were drawn. The patient's white blood cell count was normal at 7.32. Hemoglobin normal at 14.2. Platelet count normal at 218. Coags were normal. The patient's anion gap is elevated at 12, creatinine elevated at 1.28, and she has 1+ ketones in her urine concerning for dehydration. Glucose 244, but CMP otherwise without concerning abnormalities. The patient's lactate is also elevated at 5.1 which is higher than her typical baseline around 2-3. Repeat lactate improved to 3.4 after IV fluids. This is around her baseline. Procalcitonin normal. Lipase normal. Magnesium normal at 1.8. BNP was normal at 71. Initial high- sensitivity troponin elevated, but around the patient's baseline at 16.1. Repeat high-sensitivity troponin still pending at the time of shift change. Urinalysis with 1+ protein, 3+ glucose, and 1+ ketones, but otherwise negative. No evidence for UTI. Chest x-ray shows no focal airspace consolidation, pneumothorax, large pleural effusion, or other acute cardiopulmonary etiology. The previously noted prominent pulmonary vascular changes on the prior exam have resolved. CT scan of the abdomen pelvis with IV contrast shows no evidence for pyelonephritis or ureteral stone. No hydronephrosis. The kidneys demonstrate stable contours. Incidental punctate nonobstructive nephrolithiasis of the inferior pole of the left kidney. Diffuse bladder wall prominence is noted with no bladder stones. Suspect normal variation. No evidence for focal high-grade bowel obstruction, diverticulitis, pneumoperitoneum, or free intraperitoneal fluid. Mild to moderate stool burden. I suspect the patient's foul-smelling urine is secondary to concentration from her dehydration. No evidence for acute abnormalities of her abdominal pain. This may also be secondary to her dehydration. I had a meaningful discussion about this patient with Dr. Washington who agrees with the above findings and the following plan. I spoke with the patient who felt much improved after the IV fluids. I also spoke with the patient's daughter who was at bedside and she agreed that the patient was improved in her symptoms as well. The patient and her daughter were okay with being discharged home if her repeat lactate and repeat troponin were improved. To consider admission if her lactate and/or troponin levels did not improve or worsened. The patient's lactate level did improve to around her baseline after the IV fluids. Her repeat troponin was still pending at the time of shift change. Due to change of shift the patient's care was transferred to Ila BLUM. Please refer to her dictation for further details. The patient's care was transferred in stable condition. DIAGNOSIS: Dehydration Elevated Troponin Elevated Lactate Abdominal pain Foul-smelling urine . Past Med/Surg History Problem List (Updated 09/05/25 @ 00:56 by Josey Sanders PA-C) Elevated troponin (Acute) Foul smelling urine (Acute) Abdominal pain (Acute) Dehydration (Acute) General physical deterioration Chronic hypoxemic respiratory failure GERD (gastroesophageal reflux disease) HLD (hyperlipidemia) Ascending aorta dilatation HTN (hypertension) Hypothyroidism Seizure, late effect of stroke Vascular dementia Essential tremor Chronic cerebral ischemia (Chronic) Seizure disorder (Acute) HFrEF (heart failure with reduced ejection fraction) Cardiomyopathy Cerebrovascular disease (Chronic) Gait apraxia (Chronic) Morbid obesity (Chronic) Medical History Unresponsive episode 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 Acute respiratory failure with hypoxia Nonobstructive atherosclerosis of coronary artery Thoracic aortic aneurysm LBBB (left bundle branch block) Depression Infarction of kidney Neuropathy Recurrent UTI (urinary tract infection) Strain of rotator cuff of right shoulder Surgical History S/P colonoscopy S/P hysterectomy S/P appendectomy History of back surgery Status post right knee replacement No pertinent past surgical history Family History Mother Heart disease Dementia Father Lung cancer Social History Smoking Status: Never smoker Second Hand Exposure: No; Do You Dip or Chew Tobacco: No; Hx Alcohol Use: No Hx Substance Use: No Preferred Language: Portuguese Communication Ability: Impaired Communication Ability Comment: confused, but clear Visual Impairment: No Limitations Hearing Ability: Normal Assembly Machine Tender Required: No Beliefs That Will Affect Care: None marital status: / Current Living Situation: Senior Living Current Living Situation Comment: [facility] current occupational status: retired 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 How many Children do You have: 4 Feels Safe at Home: Yes Childhood Exposure to Second-Hand Smoke: No Diet: diabetic Dental Care, Regularly: No Physical Activity Frequency: Does not Exercise Seatbelt Use: always Sunscreen Use: No Assistive Devices: Oxygen - Continuous and Walker Allergies Allergies Allergy/AdvReac Type Severity Reaction Status Date / Time aspirin Allergy Severe Hives Verified 09/04/25 21:10 NSAIDS (Non-Steroidal Allergy Intermediate Hives Verified 09/04/25 21:10 Anti-Inflamma Penicillins Allergy Intermediate Hives Verified 09/04/25 21:10 vancomycin Allergy Intermediate Redness of Verified 08/30/25 09:38 Skin fenofibrate Allergy Unknown ON PT MED Verified 08/30/25 09:38 LIST naproxen Allergy Unknown Unknown - Verified 09/04/25 21:10 On Med List from [facility] propoxyphene Allergy Unknown ON PT MED Verified 08/30/25 09:38 LIST Home Meds Home Medications Medication Instructions Recorded Confirmed cholecalciferol (vitamin D3) 25 25 mcg PO QAM 03/17/23 09/04/25 mcg (1,000 unit) capsule (Vitamin D3) levothyroxine 25 mcg tablet 25 mcg PO DAILYBB 03/17/23 09/04/25 (Synthroid) diclofenac sodium 1 % topical gel 2 g topical TID 02/05/24 09/04/25 emollient combination no.92 1 applic topical BID Dry skin - 02/05/24 09/04/25 (Lubriderm Daily Moisture lotion) Legs loperamide 2 mg capsule 2 mg PO UD PRN Diarrhea 02/05/24 09/04/25 omeprazole 40 mg capsule,delayed 40 mg PO DAILYBB 02/05/24 09/04/25 release acetaminophen 650 mg 650 mg PO Q4H PRN Pain 01/25/25 09/04/25 tablet,extended release dextromethorphan-guaifenesin 30 2 tab PO Q12H PRN COUGH/CONGESTION 01/25/25 09/04/25 mg-600 mg tablet extended vihiazj24 hr (Mucinex DM) hydroxyzine HCl 10 mg tablet 10 mg PO Q6H PRN Itching 07/19/25 09/04/25 insulin glargine 100 unit/mL (3 18 unit subcut HS 07/19/25 09/04/25 mL) subcutaneous pen (Lantus Solostar U-100 Insulin) potassium chloride 20 mEq 20 meq PO DAILYBB 08/11/25 09/04/25 tablet,extended release cranberry 30,000 mg PO DAILY Chronic UTI 08/15/25 09/04/25 diclofenac sodium 1 % topical gel 2 g topical DAILY PRN Pain 08/15/25 09/04/25 furosemide 40 mg tablet 80 mg PO DAILY PRN WT GAIN 08/15/25 09/04/25 nystatin 100,000 unit/gram topical 1 applic topical BID PRN NEEDED 08/15/25 09/04/25 ointment potassium chloride 20 mEq 20 meq PO DAILY PRN WHEN TAKES 08/15/25 09/04/25 tablet,extended release LASIX dextromethorphan-guaifenesin 10 10 ml PO Q6H PRN Cough 08/20/25 09/04/25 mg-100 mg/5 mL oral syrup (Tussin DM) ferrous sulfate 325 mg (65 mg 325 mg PO Q OTHER DAY 08/20/25 09/04/25 iron) tablet (FeroSul) magnesium oxide 400 mg PO DAILY 08/20/25 09/04/25 metformin 500 mg tablet 1,000 mg PO QAM 08/20/25 09/04/25 metformin 500 mg tablet 500 mg PO QPM 08/20/25 09/04/25 multivitamin 1 tab PO DAILY 08/20/25 09/04/25 furosemide 40 mg tablet (Lasix) 80 mg PO DAILY 08/30/25 09/04/25 acetaminophen 325 mg tablet 650 mg PO Q4 PRN Fever 09/04/25 09/04/25 Previous Rx's Medication Instructions Recorded clopidogrel 75 mg tablet 75 mg PO QAM #30 tabs 04/28/23 carvedilol 6.25 mg tablet 6.25 mg PO BID #60 tabs 07/18/25 cyanocobalamin (vitamin B-12) 500 1,000 mcg (2 x 500 mcg) PO QAM #60 08/03/25 mcg tablet tabs Portable Oxygen #1 ea 08/17/25 sacubitril 24 mg-valsartan 26 mg 1 tab PO BID #60 tabs 08/22/25 tablet (Entresto) Oxygen Home #2 L 08/25/25 divalproex 500 mg tablet,extended 500 mg PO DAILY #30 tabs 08/30/25 release 24 hr lamotrigine 150 mg tablet 150 mg PO BID #60 tabs 08/30/25 (Subvenite) Results & Data (ED) Vital Signs Vital Signs - 24 hr 09/04/25 20:06 09/04/25 20:08 09/04/25 20:36 Temperature 36.3 C L Temperature Source Oral Pulse Rate 93 H 86 86 Pulse Rate from SpO2 Sensor Respiratory Rate 21 20 Respiratory Effort / Characteristics Non-Labored Spontaneous Respiratory Depth Normal Respiratory Pattern Regular Blood Pressure 152/101 H 119/77 Blood Pressure Mean 118 91 Pulse Oximetry 97 99 Oxygen Delivery Method Nasal Cannula Nasal Cannula Oxygen Flow Rate 2 2 Sepsis Recent Fever Within 48 Hours No Sepsis New/Unexplained Change in Mental Status No Sepsis Action Taken by Nursing No Action Required 09/04/25 20:54 09/04/25 21:00 09/04/25 21:30 Temperature Temperature Source Pulse Rate 77 82 89 Pulse Rate from SpO2 Sensor Respiratory Rate 23 21 16 Respiratory Effort / Characteristics Respiratory Depth Respiratory Pattern Blood Pressure 141/71 H 123/77 140/74 Blood Pressure Mean 94 92 96 Pulse Oximetry 99 98 97 Oxygen Delivery Method Nasal Cannula Room Air Nasal Cannula Oxygen Flow Rate 2 2 2 Sepsis Recent Fever Within 48 Hours Sepsis New/Unexplained Change in Mental Status Sepsis Action Taken by Nursing 09/04/25 22:03 09/04/25 22:30 09/04/25 23:00 Temperature Temperature Source Pulse Rate 91 H 89 92 H Pulse Rate from SpO2 Sensor Respiratory Rate 22 24 22 Respiratory Effort / Characteristics Respiratory Depth Respiratory Pattern Blood Pressure 117/72 122/79 115/79 Blood Pressure Mean 87 93 99 Pulse Oximetry 97 97 97 Oxygen Delivery Method Nasal Cannula Nasal Cannula Oxygen Flow Rate 2 2 Sepsis Recent Fever Within 48 Hours Sepsis New/Unexplained Change in Mental Status Sepsis Action Taken by Nursing 09/04/25 23:00 09/05/25 00:01 Temperature Temperature Source Pulse Rate 92 H 95 H Pulse Rate from SpO2 Sensor 85 Respiratory Rate 22 Respiratory Effort / Characteristics Respiratory Depth Respiratory Pattern Blood Pressure 115/79 Blood Pressure Mean 91 Pulse Oximetry 97 Oxygen Delivery Method Oxygen Flow Rate Sepsis Recent Fever Within 48 Hours Sepsis New/Unexplained Change in Mental Status Sepsis Action Taken by Nursing Laboratory Data 09/04/25 20:19 09/04/25 20:19 Lab Results 09/04/25 09/04/25 09/04/25 Range/Units 20:11 20:19 20:21 WBC 7.32 (4.8-10.8) K/ul RBC 4.26 (4.20-5.40) M/uL Hgb 14.2 (12.0-16.0) g/dL POC Hgb 14.3 (12.0-16.0) g/dl Hct 40.7 (37.0-47.0) % POC Hct 42 (37-47) % MCV 95.5 (80.0-100.0) fL MCH 33.3 (25.0-34.0) pg MCHC 34.9 (32.0-36.0) g/dL RDW Std Deviation 44.1 (36.4-46.3) fL RDW Coeff of Sam 12.4 (11.5-14.5) % Plt Count 218 (130-400) K/uL MPV 10.2 (9.4-12.4) fL Immature Gran % (Auto) 0.4 % Neut % (Auto) 43.0 % Lymph % (Auto) 39.8 % [place] % (Auto) 11.7 % Eos % (Auto) 4.1 % Baso % (Auto) 1.0 % Neut # (Auto) 3.15 (1.40-6.50) K/uL Lymph # (Auto) 2.91 (1.20-3.40) K/uL [place] # (Auto) 0.86 H (0.11-0.59) K/uL Eos # (Auto) 0.30 (0.00-0.50) K/uL Baso # (Auto) 0.07 (0.00-0.20) K/uL Immature Gran # (Auto) 0.03 (0.01-0.20) K/uL PT 10.8 (9.0-12.0) Seconds INR 1.0 (0.9-1.1) APTT 22 (21-31) Seconds PTT Ratio 0.8 POC Sodium 139 (135-144) mmol/L Sodium 138 (136-145) mmol/L POC Potassium 4.0 (3.3-5.0) mmol/L Potassium 4.0 (3.5-5.1) mmol/L POC Chloride 99 L (101-112) mmol/L Chloride 98 (98-107) mmol/L Carbon Dioxide 28 (21-32) mmol/L POC Total CO2 25 (24-31) mmol/L Anion Gap 12 H (3-11) POC Anion Gap 20.0 (16-25) mmol/L POC BUN 14 (7-18) mg/dl BUN 15 (6-23) mg/dl Creatinine 1.28 H (0.6-1.2) mg/dl POC Creatinine 1.3 (0.6-1.3) mg/dl Est Cr Clr Drug Dosing 43.6 ml/min eGFR 41.83 BUN/Creatinine Ratio 11.7 (10-20) Glucose 244 H (70-99(Fasting)) mg/dl POC Glucose (other) 230 H (70-99) mg/dl Lactate 5.1 H* (0.4-2.0) mmol/L Calcium 9.9 (8.6-10.3) mg/dl POC Ioniz Calcium Gudelia 1.20 (1.12-1.32) mmol/l Magnesium 1.8 (1.7-2.4) mg/dl Total Bilirubin 0.7 (0.2-1.0) mg/dl AST 14 (13-39) U/L ALT 12 (7-52) U/L Alkaline Phosphatase 53 (34-104) U/L Troponin I High Sens 16.1 H (0-14) pg/ml B-Natriuretic Peptide 71 (0-100) pg/ml Total Protein 7.1 (6.0-8.3) gm/dl Albumin 3.7 (3.4-5.0) gm/dl Globulin 3.4 (2.5-4.0) gm/dl Albumin/Globulin Ratio 1.1 (0.9-2) Lipase 52 (11-82) U/L Procalcitonin 0.02 (0-0.5) ng/ml Urine Color Yellow Urine Appearance Clear (Clear) Urine pH 5.0 (4.5-7.5) Ur Specific [place] 1.027 (1.000-1.030) Urine Protein 1+ H (Negative) Urine Glucose (UA) 3+ H (Negative) Urine Ketones 1+ H (Negative) Urine Blood Negative (Negative) Urine Nitrite Negative (Negative) Urine Bilirubin Negative (Negative) Urine Urobilinogen Negative (Negative) Ur Leukocyte Esterase Negative (Negative) Urine WBC (Auto) 0-5 (0-5) /hpf Urine RBC (Auto) 0-2 (0-2) /hpf U Hyaline Cast (Auto) 0-2 (0-2) /lpf U Epithel Cells (Auto) 0-2 (0-2) /hpf Urine Bacteria (Auto) None Seen (None Seen) Urine Comment 09/04/25 Range/Units 23:05 WBC (4.8-10.8) K/ul RBC (4.20-5.40) M/uL Hgb (12.0-16.0) g/dL POC Hgb (12.0-16.0) g/dl Hct (37.0-47.0) % POC Hct (37-47) % MCV (80.0-100.0) fL MCH (25.0-34.0) pg MCHC (32.0-36.0) g/dL RDW Std Deviation (36.4-46.3) fL RDW Coeff of Sam (11.5-14.5) % Plt Count (130-400) K/uL MPV (9.4-12.4) fL Immature Gran % (Auto) % Neut % (Auto) % Lymph % (Auto) % [place] % (Auto) % Eos % (Auto) % Baso % (Auto) % Neut # (Auto) (1.40-6.50) K/uL Lymph # (Auto) (1.20-3.40) K/uL [place] # (Auto) (0.11-0.59) K/uL Eos # (Auto) (0.00-0.50) K/uL Baso # (Auto) (0.00-0.20) K/uL Immature Gran # (Auto) (0.01-0.20) K/uL PT (9.0-12.0) Seconds INR (0.9-1.1) APTT (21-31) Seconds PTT Ratio POC Sodium (135-144) mmol/L Sodium (136-145) mmol/L POC Potassium (3.3-5.0) mmol/L Potassium (3.5-5.1) mmol/L POC Chloride (101-112) mmol/L Chloride (98-107) mmol/L Carbon Dioxide (21-32) mmol/L POC Total CO2 (24-31) mmol/L Anion Gap (3-11) POC Anion Gap (16-25) mmol/L POC BUN (7-18) mg/dl BUN (6-23) mg/dl Creatinine (0.6-1.2) mg/dl POC Creatinine (0.6-1.3) mg/dl Est Cr Clr Drug Dosing ml/min eGFR BUN/Creatinine Ratio (10-20) Glucose (70-99(Fasting)) mg/dl POC Glucose (other) (70-99) mg/dl Lactate 3.4 H* (0.4-2.0) mmol/L Calcium (8.6-10.3) mg/dl POC Ioniz Calcium Gudelia (1.12-1.32) mmol/l Magnesium (1.7-2.4) mg/dl Total Bilirubin (0.2-1.0) mg/dl AST (13-39) U/L ALT (7-52) U/L Alkaline Phosphatase (34-104) U/L Troponin I High Sens 23.3 H (0-14) pg/ml B-Natriuretic Peptide (0-100) pg/ml Total Protein (6.0-8.3) gm/dl Albumin (3.4-5.0) gm/dl Globulin (2.5-4.0) gm/dl Albumin/Globulin Ratio (0.9-2) Lipase (11-82) U/L Procalcitonin (0-0.5) ng/ml Urine Color Urine Appearance (Clear) Urine pH (4.5-7.5) Ur Specific [place] (1.000-1.030) Urine Protein (Negative) Urine Glucose (UA) (Negative) Urine Ketones (Negative) Urine Blood (Negative) Urine Nitrite (Negative) Urine Bilirubin (Negative) Urine Urobilinogen (Negative) Ur Leukocyte Esterase (Negative) Urine WBC (Auto) (0-5) /hpf Urine RBC (Auto) (0-2) /hpf U Hyaline Cast (Auto) (0-2) /lpf U Epithel Cells (Auto) (0-2) /hpf Urine Bacteria (Auto) (None Seen) Urine Comment Administered Medications Discontinued Medications Sodium Chloride (Nss) 250 mls @ 999 mls/hr IV .Q16M ONE Stop: 09/04/25 20:29 Last Infusion: 09/04/25 21:17 Dose: Infused Documented By: [facility] Admin: 09/04/25 20:55 Dose: 999 mls/hr Documented By: KORY Ceftriaxone Sodium (Rocephin) 2,000 mg in 50 mls @ 100 mls/hr IV NOW STA Stop: 09/04/25 21:41 Last Infusion: 09/04/25 21:50 Dose: Infused Documented By: [facility] Admin: 09/04/25 21:17 Dose: 100 mls/hr Documented By: KORY Sodium Chloride (Nss) 500 mls @ 999 mls/hr IV .Q31M ONE Stop: 09/04/25 22:34 Last Infusion: 09/04/25 23:38 Dose: Infused Documented By: Admin: 09/04/25 22:09 Dose: 999 mls/hr Documented By: KORY Sodium Chloride (Nss) 250 mls @ 999 mls/hr IV .Q16M ONE Stop: 09/04/25 22:19 Last Infusion: 09/04/25 22:30 Dose: Infused Documented By: [facility] Admin: 09/04/25 22:09 Dose: 999 mls/hr Documented By: KORY Ioversol (Optiray 320 100ml) 90 ml IV ONCE ONE Stop: 09/04/25 20:47 Last Admin: 09/04/25 20:47 Dose: 90 ml Documented By: DARIEN Imaging Data Radiologist's Impression: Abdomen/Pelvis CT 09/04/25 20:14 Exam(s): CT ABDOMEN + PELVIS With Contrast IV Amt: 90 ml optiray 320 EXAM: CT Abdomen and Pelvis With Intravenous Contrast CLINICAL HISTORY: Abdominal pain, ? UTI. TECHNIQUE: Axial computed tomography images of the abdomen and pelvis with intravenous contrast. CTDI is 38.67 mGy and DLP is 1816.82 mGy-cm. Automated exposure control was utilized for the study. A dose lowering technique was utilized adhering to the principles of ALARA. CONTRAST: Patient received 90 ml optiray 320 of IV contrast COMPARISON: Noncontrast CT abdomen and pelvis 12/02/2023 FINDINGS: Artifacts: Scatter artifact likely related to patient's arm position. Scatter artifact likely related to patient's body habitus. Limitations: There is respiratory artifact, which degrades image quality on multiple image slices. Lung bases: No significant abnormality. No mass. No consolidation. ABDOMEN: Liver: The liver is stable in appearance. No focal abnormality identified. Gallbladder and bile ducts: No significant abnormality. No calcified stones. No ductal dilation. Pancreas: No significant abnormality. No mass. No ductal dilation. Spleen: No significant abnormality. No splenomegaly. Adrenals: No significant abnormality. No mass. Kidneys and ureters: The kidneys demonstrate stable contours. No evidence for pyelonephritis with incidental cortical atrophy involving the anterior aspect of the left midpole kidney. No hydronephrosis or obstructive ureteral stones. Incidental punctate nonobstructive nephrolithiasis inferior pole of the left kidney. There is an 11 mm cortical cyst involving the lateral aspect of the left kidney. No evidence for abnormal internal architecture or solid components. There is a 3 cm cyst in the inferior aspect of the right kidney. No abnormal internal architecture identified. Stomach and bowel: No evidence for focal high-grade bowel obstruction. No definite asymmetric bowel mucosal abnormality. [id number] stool burden. No diverticulitis. PELVIS: Appendix: No findings to suggest acute appendicitis. Bladder: Diffuse bladder wall prominence is noted. No bladder stones. Reproductive: Status post hysterectomy. ABDOMEN and PELVIS: Intraperitoneal space: No significant abnormality. No free air. No significant fluid collection. Bones/joints: No acute fracture. No dislocation. Soft tissues: No significant abnormality. Vasculature: No significant abnormality. No abdominal aortic aneurysm. Lymph nodes: No significant abnormality. No enlarged lymph nodes. IMPRESSION: 1. The kidneys demonstrate stable contours. No evidence for pyelonephritis with incidental cortical atrophy involving the anterior aspect of the left midpole kidney. No hydronephrosis or obstructive ureteral stones. Incidental punctate nonobstructive nephrolithiasis inferior pole of the left kidney. 2. Diffuse bladder wall prominence is noted. No bladder stones. Suspect normal variation. However, please correlate with urinalysis for potential subtle cystitis. 3. No evidence for focal high-grade bowel obstruction. No definite asymmetric bowel mucosal abnormality. [id number] stool burden. No diverticulitis. No free intraperitoneal fluid or pneumoperitoneum. Electronically signed by: Yvon Goyal MD 09/04/25 21:35 PM Chest X-Ray 09/04/25 20:14 Exam(s): XR CXR 1 VIEW EXAM: XR Chest, 1 View CLINICAL HISTORY: Abd pain, peripheral edema. TECHNIQUE: Frontal view of the chest. COMPARISON: XR Chest dated 08/20/2025 FINDINGS: Lungs: Accounting for overlying prominent soft tissues of the lung bases, no focal airspace consolidation. The previously noted prominent pulmonary vascular changes on the prior examination have resolved. Pleural space: No significant abnormality. No pneumothorax. No large pleural effusion. Heart: The cardiac silhouette is stable and presumed accentuated by portable technique. Mediastinum: No significant abnormality identified. The trachea is midline. Bones/joints: No significant abnormality. No acute fracture. IMPRESSION: Accounting for overlying prominent soft tissues of the lung bases, no focal airspace consolidation. The previously noted prominent pulmonary vascular changes on the prior examination have resolved. No large pleural effusion or pneumothorax. Electronically signed by: Yvon Goyal MD 09/04/25 21:54 PM Discharge Plan Visit Data Chief Complaint: Abdominal Pain Stated Complaint: ABDOMINAL PAIN, ?UTI ED Provider: [facility] ED Midlevel Provider: Josey Sanders Discharge Problem: Dehydration, Abdominal pain, Foul smelling urine, Elevated troponin Patient Disposition: Still a Patient Condition: Fair Prescriptions Prescriptions: No Action (DME) Portable Oxygen Misc See Rx Instructions .Route Qty: 1 0RF Rx Instructions: 3L NC continuous, Titrate up to keep pulse ox >92% hydroxyzine HCl 10 mg tablet 10 mg PO Q6H PRN (Reason: Itching) sacubitril-valsartan [Entresto] 24-26 mg tablet 1 tab PO BID Qty: 60 2RF (DME) Oxygen Home Liters Per Minute See Rx Instructions .ROUTE .MEDSUPPLY Qty: 2 0RF Rx Instructions: Home oxygen concentrator at 2 L/min via nasal cannula with rest and exertion. dahlia 99. divalproex 500 mg tablet extended release 24 hr 500 mg PO DAILY Qty: 30 5RF lamotrigine [Subvenite] 150 mg tablet 150 mg PO BID Qty: 60 5RF acetaminophen 650 mg tablet extended release 650 mg PO Q4H PRN (Reason: Pain) Mucinex DM 30-600 mg tablet extended release 12 hr 2 tab PO Q12H PRN (Reason: COUGH/CONGESTION) clopidogrel 75 mg Tablet 75 mg PO QAM Qty: 30 0RF cholecalciferol (vitamin D3) [Vitamin D3] 25 mcg (1,000 unit) Capsule 25 mcg PO QAM levothyroxine [Synthroid] 25 mcg tablet 25 mcg PO DAILYBB Rx Instructions: for underactive thyroid gland carvedilol 6.25 mg Tablet 6.25 mg PO BID Qty: 60 0RF cyanocobalamin (vitamin B-12) 500 mcg Tablet 1,000 mcg PO QAM Qty: 60 0RF Rx Instructions: take 2 tablet dose furosemide 40 mg Tablet 80 mg PO DAILY PRN (Reason: WT GAIN ) Rx Instructions: notify doctor if >by 2 lbs in 24 hours or 5 lbs in 1 week nystatin 100,000 unit/gram Ointment 1 applic TOPICAL BID PRN (Reason: NEEDED) diclofenac sodium 1 % Gel 2 g TOPICAL DAILY PRN (Reason: Pain) potassium chloride 20 mEq Tablet Extended Release 20 meq PO DAILY PRN (Reason: WHEN TAKES LASIX) cranberry 10,000 mg tablet 30,000 mg PO DAILY multivitamin Tablet 1 tab PO DAILY metformin 500 mg tablet 1,000 mg PO QAM metformin 500 mg tablet 500 mg PO QPM dextromethorphan-guaifenesin [Tussin DM] 10-100 mg/5 mL Syrup 10 ml PO Q6H PRN (Reason: Cough) ferrous sulfate [FeroSul] 325 mg (65 mg iron) Tablet 325 mg PO Q OTHER DAY magnesium oxide 400 mg magnesium Tablet 400 mg PO DAILY acetaminophen 325 mg tablet 650 mg PO Q4 PRN (Reason: Fever) loperamide 2 mg capsule 2 mg PO UD MDD 8mg/24hrs PRN (Reason: Diarrhea) Rx Instructions: take 2 capsules after 1st loose stool then 1 capsule after each additional loose stool omeprazole 40 mg capsule,delayed release(DR/EC) 40 mg PO DAILYBB Lubriderm Daily Moisture Lotion 1 applic TOPICAL BID diclofenac sodium 1 % gel 2 g topical TID Rx Instructions: 0600, 1200, 1800 insulin glargine [Lantus Solostar U-100 Insulin] 100 unit/mL (3 mL) insulin pen 18 unit SUBCUT HS potassium chloride 20 mEq tablet extended release 20 meq PO DAILYBB Rx Instructions: take with Lasix furosemide [Lasix] 40 mg tablet 80 mg PO DAILY Referrals Referrals: Cameron Martines MD [Outside Practitioners] - Discharge Problem: Abdominal pain Qualifiers: Abdominal location: generalized Qualified Code(s): R10.84 - Generalized abdominal pain
[2025-09-04 21:10] LABS: Appearance Urine Clear (Clear); Bacteria Urine Automated None Seen (None Seen); Cast Urine Automated 0-2 /lpf (0-2); Epithelial Cell Urine Auto 0-2 /hpf (0-2); Glucose Urine UA 3+ (Negative); RBC Urine Automated 0-2 /hpf (0-2); WBC Urine Automated 0-5 /hpf (0-5)
[2025-09-04 21:17] LABS: Hematocrit (blood only) 40.7 % (37.0-47.0); Hemoglobin 14.2 g/dL (12.0-16.0); Immature Granulocytes # (auto) 0.03 K/uL (0.01-0.20); Immature Granulocytes % (auto) 0.4 %; Mean Corpuscular Hemoglobin 33.3 pg (25.0-34.0); Mean Corpuscular Volume 95.5 fL (80.0-100.0); Platelet Count 218 K/uL (130-400); RDW Standard Deviation 44.1 fL (36.4-46.3); Red Blood Count 4.26 M/uL (4.20-5.40); White Blood Count 7.32 K/ul (4.8-10.8)
[2025-09-04] MEDS: cefTRIAXone SODIUM 2,000 MG/50 ML BAG IV STA (21:17)
[2025-09-04 21:19] LABS: INR 1.0 (0.9-1.1); Partial Thromboplastin Time 22 Seconds (21-31); Prothrombin Time 10.8 Seconds (9.0-12.0)
--- NOTE | 2025-09-04 21:36 | CT Scan Report ---
Exam(s): CT ABDOMEN + PELVIS With Contrast IV Amt: 90 ml optiray 320 EXAM: CT Abdomen and Pelvis With Intravenous Contrast CLINICAL HISTORY: Abdominal pain, ? UTI. TECHNIQUE: Axial computed tomography images of the abdomen and pelvis with intravenous contrast. CTDI is 38.67 mGy and DLP is 1816.82 mGy-cm. Automated exposure control was utilized for the study. A dose lowering technique was utilized adhering to the principles of ALARA. CONTRAST: Patient received 90 ml optiray 320 of IV contrast COMPARISON: Noncontrast CT abdomen and pelvis 12/02/2023 FINDINGS: Artifacts: Scatter artifact likely related to patient's arm position. Scatter artifact likely related to patient's body habitus. Limitations: There is respiratory artifact, which degrades image quality on multiple image slices. Lung bases: No significant abnormality. No mass. No consolidation. ABDOMEN: Liver: The liver is stable in appearance. No focal abnormality identified. Gallbladder and bile ducts: No significant abnormality. No calcified stones. No ductal dilation. Pancreas: No significant abnormality. No mass. No ductal dilation. Spleen: No significant abnormality. No splenomegaly. Adrenals: No significant abnormality. No mass. Kidneys and ureters: The kidneys demonstrate stable contours. No evidence for pyelonephritis with incidental cortical atrophy involving the anterior aspect of the left midpole kidney. No hydronephrosis or obstructive ureteral stones. Incidental punctate nonobstructive nephrolithiasis inferior pole of the left kidney. There is an 11 mm cortical cyst involving the lateral aspect of the left kidney. No evidence for abnormal internal architecture or solid components. There is a 3 cm cyst in the inferior aspect of the right kidney. No abnormal internal architecture identified. Stomach and bowel: No evidence for focal high-grade bowel obstruction. No definite asymmetric bowel mucosal abnormality. [id number] stool burden. No diverticulitis. PELVIS: Appendix: No findings to suggest acute appendicitis. Bladder: Diffuse bladder wall prominence is noted. No bladder stones. Reproductive: Status post hysterectomy. ABDOMEN and PELVIS: Intraperitoneal space: No significant abnormality. No free air. No significant fluid collection. Bones/joints: No acute fracture. No dislocation. Soft tissues: No significant abnormality. Vasculature: No significant abnormality. No abdominal aortic aneurysm. Lymph nodes: No significant abnormality. No enlarged lymph nodes. IMPRESSION: 1. The kidneys demonstrate stable contours. No evidence for pyelonephritis with incidental cortical atrophy involving the anterior aspect of the left midpole kidney. No hydronephrosis or obstructive ureteral stones. Incidental punctate nonobstructive nephrolithiasis inferior pole of the left kidney. 2. Diffuse bladder wall prominence is noted. No bladder stones. Suspect normal variation. However, please correlate with urinalysis for potential subtle cystitis. 3. No evidence for focal high-grade bowel obstruction. No definite asymmetric bowel mucosal abnormality. [id number] stool burden. No diverticulitis. No free intraperitoneal fluid or pneumoperitoneum. Electronically signed by: Yvon Goyal MD 09/04/25 21:35 PM
--- NOTE | 2025-09-04 21:55 | XRay Report ---
Exam(s): XR CXR 1 VIEW EXAM: XR Chest, 1 View CLINICAL HISTORY: Abd pain, peripheral edema. TECHNIQUE: Frontal view of the chest. COMPARISON: XR Chest dated 08/20/2025 FINDINGS: Lungs: Accounting for overlying prominent soft tissues of the lung bases, no focal airspace consolidation. The previously noted prominent pulmonary vascular changes on the prior examination have resolved. Pleural space: No significant abnormality. No pneumothorax. No large pleural effusion. Heart: The cardiac silhouette is stable and presumed accentuated by portable technique. Mediastinum: No significant abnormality identified. The trachea is midline. Bones/joints: No significant abnormality. No acute fracture. IMPRESSION: Accounting for overlying prominent soft tissues of the lung bases, no focal airspace consolidation. The previously noted prominent pulmonary vascular changes on the prior examination have resolved. No large pleural effusion or pneumothorax. Electronically signed by: Yvon Goyal MD 09/04/25 21:54 PM
[2025-09-04] MEDS: SODIUM CHLORIDE 0.9% 500 ML IV ONE (22:09)
--- NOTE | 2025-09-04 23:24 | Emergency Department Note ---
ED Visit Note I had a meaningful discussion with the PA regarding patient. Though I did not see the patient face to face, I personally approved and/or made the documented management plan and acknowledge risk and complications. .
--- NOTE | 2025-09-05 00:32 | History & Physical Report ---
Date of Service September 05, 2025 Assessment & Plan (1) Abdominal pain: (2) Renal insufficiency: (3) Elevated troponin: (4) Elevated lactic acid level: (5) Type 2 diabetes mellitus: Plan 80-year-old female PMHx gait ataxia, cardiomyopathy, HFrEF, seizure disorder, chronic cerebral ischemia, vascular dementia, hypothyroidism, HTN, ascending aorta dilatation, HLD, GERD, chronic hypoxemic respiratory failure, and DM presenting for abdominal pain. Her evaluation is significant for a mildly elevated Cr at 1.28, as well as a decreasing but elevated lactate (5.1-> 3.4) and increasing troponin (16.1-> 23.3). Her imaging suggests possible cystitis in the setting of a negative UA, no other acute findings. #Abdominal pain C/o abdominal pain, was concerned for UTI. Received IVF + 1 dose Ceftriaxone in ED. Imaging concerning for some constipation, pt however reports normal BM. Goal will be to help alleviate some of the stool burden, gently. - CBC stable; lactate 5.1-> 3.4; trop 16.1-> 23.3; lipase WNL; procal WNL - UA negative for infection - CTAP mild-moderate stool burden, possible cystitis - Constipation regimen --> MiraLAX robin for now, add on additional regimen if no BM - Deferred further abx- Stable WBC + procal, no fevers, and no source of infection at present - lactate not proportionate to other findings #Renal insufficiency Mild elevation of Cr, no h/o CKD. Received 1L NSS in ED. - Cr 1.28, BUN 15 - BMP am - UA without infection - CTAP ? cystitis - Bladder scan prn - Defer further IVF at this time - h/o HFrEF -- add back IVF as appropriate/pending repeat Cr - Hold furosemide + Entresto at admission #Elevated troponin H/o elevated troponin levels not in setting of ACS. No CP, SOB, or palpitations at present. - Trop 16.1-> 23.3; trend - EKG sinus rhythm with 1st degree AV block, LBBB @ 92 bpm - Echo 07/2025 with EF 20-25% - Likely 2/2 demand - Will monitor on tele #Elevated lactic acid Has had elevated lactic acid levels in the past, almost every time she has the lab drawn. Pt is on metformin, 1,500mg daily, likely contributes to this finding. She has a history of seizures, so if she did have a recent episode this could be an additional possible etiology. Overall, renal and liver functions stable but poor clearance could be considered. No signs of infection at this time. - Lactate 5.1-> 3.4 -> repeat am - Procal, WBC WNL - UA without infection - CXR no PNA or abnormalities - CTAP with mild-moderate stool burden, ? cystitis (negative UA) - Can consider dose adjustments for metformin to see if this changes her levels -- hold metformin at time of admission regardless #T2DM H/o T2DM. At home regimen includes insulin glargine 18U HS, metformin. Hyperglycemic at admission. - Glucose on admission 244; Most recent A1c 08/2025 @ 8.9% - Hold home regimen - SSI with target BSG range 110-140mg/dL, CF 20, carb ratio 7 - Lantus 7U BID - BSG ACHS - Adjust as appropriate #HFrEF- BNP 71, CXR without acute findings, last echo 07/2025 with EF 20-25%; Furosemide daily and prn, Entresto - Hold Entresto + furosemide the night of admission, add back once Cr stabilizes or if pt condition requires diuresis following the IVF provided #Seizures- "Unconscious episodes for hours" per daughter, reports that she had one before arrival to ED; follows with neurology who believes that she is having "breakthrough seizures"; Seizure precautions in place; Divalproex, lamotrigine - continue #HTN- Carvedilol - continue #Hypothyroidism- TSH 08/20/2025 @ 9.177; Levothyroxine - continue #Cerebrovascular disease- Plavix - continue #Chronic hypoxemia respiratory failure- CXR stable; 2L O2 at atll times at baseline - continue #GERD- Omeprazole - continue Dispo: Admit, med/tele VTE Prophylaxis: SCDs This document was dictated utilizing [employer]. Please excuse any grammatical errors that may be secondary to use of this software. Admission and Anticipated Discharge Date Admission Date: 09/05/2025 History of Present Illness Chief Complaint: Abdominal pain Primary Care Provider: Bonifacio Ibanez DO 80-year-old female PMHx gait ataxia, cardiomyopathy, HFrEF, seizure disorder, chronic cerebral ischemia, vascular dementia, hypothyroidism, HTN, ascending aorta dilatation, HLD, GERD, chronic hypoxemic respiratory failure, and DM presenting for abdominal pain. Her daughter helps provide history. Patient is without current complaints. Patient's daughter states that she was called from the prison ([facility]) that her mother was having significant abdominal pain to the point that she was crying. The staff reports that they tried to sit her down in a chair to help alleviate the symptoms and she immediately sprung back up because it worsen the pain. Patient denies any abdominal pain, does not member with apnea. She does have history of dementia at baseline, she is at her baseline. Her daughter also expresses episodes of "unconsciousness for hours" in which the patient follows with neurology for. Has been told that these are breakthrough seizures, however the patient does not have any tonic-clonic movements of the body when these occur. Reportedly had an episode prior to arriving to the ED on the day of arrival. No nausea or vomiting, no fever or chills. Patient states that she has normal bowel movements. No chest pain, SOB , palpitations, diarrhea/constipation, URI symptoms, LUTS, weakness, syncope, or falls. Patient is pleasantly resting at this time, states that she just wants to sleep. Patient's daughter concern for patient going home if the pain was not significant prior to arriving. ED evaluation reveals CBC without leukocytosis/leukopenia, stable H/H; PT/INR WNL; CMP AG 12, Cr 1.28, glucose 244; lactate 5.1 then 3.4 on repeat; Ca 9.9, Mag 1.8; trop 16.1 then 23.3 on repeat; BNP 71; procal 0.02; UA without infection; CXR without focal airspace consolidation, no large effusion or PTX; CTAP with inciental punctate nonobstructive nephrolithiasis inferior pole of L kidney, diffuse bladder wall prominence, and mild-moderate stool burden; EKG sinus rhythm, with 1st degree AV block @ 92 bpm.; Provided with 1L NSS and Ceftriaxone 2g IV in ED. Please see Dr. Eagle's attestation for adjustments/additions to treatment plan. Allergies Allergy/AdvReac Type Severity Reaction Status Date / Time aspirin Allergy Severe Hives Verified 09/04/25 21:10 NSAIDS (Non-Steroidal Allergy Intermediate Hives Verified 09/04/25 21:10 Anti-Inflamma Penicillins Allergy Intermediate Hives Verified 09/04/25 21:10 vancomycin Allergy Intermediate Redness of Verified 08/30/25 09:38 Skin fenofibrate Allergy Unknown ON PT MED Verified 08/30/25 09:38 LIST naproxen Allergy Unknown Unknown - Verified 09/04/25 21:10 On Med List from [facility] propoxyphene Allergy Unknown ON PT MED Verified 08/30/25 09:38 LIST Home Medications Medication Instructions Recorded Confirmed Type cholecalciferol (vitamin D3) 25 25 mcg PO QAM 03/17/23 09/04/25 History mcg (1,000 unit) capsule (Vitamin D3) levothyroxine 25 mcg tablet 25 mcg PO DAILYBB 03/17/23 09/04/25 History (Synthroid) clopidogrel 75 mg tablet 75 mg PO QAM #30 tabs 04/28/23 09/04/25 Rx diclofenac sodium 1 % topical gel 2 g topical TID 02/05/24 09/04/25 History emollient combination no.92 1 applic topical BID Dry skin - 02/05/24 09/04/25 History (Lubriderm Daily Moisture lotion) Legs loperamide 2 mg capsule 2 mg PO UD PRN Diarrhea 02/05/24 09/04/25 History omeprazole 40 mg capsule,delayed 40 mg PO DAILYBB 02/05/24 09/04/25 History release acetaminophen 650 mg 650 mg PO Q4H PRN Pain 01/25/25 09/04/25 History tablet,extended release dextromethorphan-guaifenesin 30 2 tab PO Q12H PRN COUGH/CONGESTION 01/25/25 09/04/25 History mg-600 mg tablet extended [id number] hr (Mucinex DM) carvedilol 6.25 mg tablet 6.25 mg PO BID #60 tabs 07/18/25 09/04/25 Rx hydroxyzine HCl 10 mg tablet 10 mg PO Q6H PRN Itching 07/19/25 09/04/25 History insulin glargine 100 unit/mL (3 18 unit subcut HS 07/19/25 09/04/25 History mL) subcutaneous pen (Lantus Solostar U-100 Insulin) cyanocobalamin (vitamin B-12) 500 1,000 mcg (2 x 500 mcg) PO QAM #60 08/03/25 09/04/25 Rx mcg tablet tabs potassium chloride 20 mEq 20 meq PO DAILYBB 08/11/25 09/04/25 History tablet,extended release cranberry 30,000 mg PO DAILY Chronic UTI 08/15/25 09/04/25 History diclofenac sodium 1 % topical gel 2 g topical DAILY PRN Pain 08/15/25 09/04/25 History furosemide 40 mg tablet 80 mg PO DAILY PRN WT GAIN 08/15/25 09/04/25 History nystatin 100,000 unit/gram topical 1 applic topical BID PRN NEEDED 08/15/25 09/04/25 History ointment potassium chloride 20 mEq 20 meq PO DAILY PRN WHEN TAKES 08/15/25 09/04/25 History tablet,extended release LASIX Portable Oxygen #1 ea 08/17/25 09/04/25 Rx dextromethorphan-guaifenesin 10 10 ml PO Q6H PRN Cough 08/20/25 09/04/25 History mg-100 mg/5 mL oral syrup (Tussin DM) ferrous sulfate 325 mg (65 mg 325 mg PO Q OTHER DAY 08/20/25 09/04/25 History iron) tablet (FeroSul) magnesium oxide 400 mg PO DAILY 08/20/25 09/04/25 History metformin 500 mg tablet 1,000 mg PO QAM 08/20/25 09/04/25 History metformin 500 mg tablet 500 mg PO QPM 08/20/25 09/04/25 History multivitamin 1 tab PO DAILY 08/20/25 09/04/25 History sacubitril 24 mg-valsartan 26 mg 1 tab PO BID #60 tabs 08/22/25 09/04/25 Rx tablet (Entresto) Oxygen Home #2 L 08/25/25 09/04/25 Rx divalproex 500 mg tablet,extended 500 mg PO DAILY #30 tabs 08/30/25 09/04/25 Rx release 24 hr furosemide 40 mg tablet (Lasix) 80 mg PO DAILY 08/30/25 09/04/25 History lamotrigine 150 mg tablet 150 mg PO BID #60 tabs 08/30/25 09/04/25 Rx (Subvenite) acetaminophen 325 mg tablet 650 mg PO Q4 PRN Fever 09/04/25 09/04/25 History Past Med/Surg History Problem List (Updated 09/05/25 @ 01:28 by Marcus Mesa PA-C) Type 2 diabetes mellitus Renal insufficiency Elevated troponin (Acute) Foul smelling urine (Acute) Abdominal pain (Acute) Dehydration (Acute) General physical deterioration Chronic hypoxemic respiratory failure GERD (gastroesophageal reflux disease) HLD (hyperlipidemia) Ascending aorta dilatation HTN (hypertension) Hypothyroidism Seizure, late effect of stroke Vascular dementia Essential tremor Chronic cerebral ischemia (Chronic) Seizure disorder (Acute) HFrEF (heart failure with reduced ejection fraction) Cardiomyopathy Cerebrovascular disease (Chronic) Gait apraxia (Chronic) Morbid obesity (Chronic) Medical History Unresponsive episode 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 Acute respiratory failure with hypoxia Nonobstructive atherosclerosis of coronary artery Thoracic aortic aneurysm LBBB (left bundle branch block) Depression Infarction of kidney Neuropathy Recurrent UTI (urinary tract infection) Strain of rotator cuff of right shoulder Surgical History S/P colonoscopy S/P hysterectomy S/P appendectomy History of back surgery Status post right knee replacement No pertinent past surgical history Family History Mother Heart disease Dementia Father Lung cancer Social History Smoking Status: Never smoker Tobacco Type: Declines Second Hand Exposure: No; Do You Dip or Chew Tobacco: No; Tobacco Cessation Education Requested by Patient: No Hx Alcohol Use: No Hx Substance Use: No Preferred Language: Faroese Communication Ability: Effective Communication Ability Comment: confused, but clear Visual Impairment: No Limitations Hearing Ability: Normal Regulatory Assistant Required: No Beliefs That Will Affect Care: None marital status: / Current Living Situation: Assisted Current Living Situation Comment: [facility] [place] current occupational status: retired 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 Review of Systems Review of Systems: All systems reviewed & are unremarkable except as noted in Subjective Physical Exam Physical Exam: General: No acute distress Skin: Warm and dry Head: Normocephalic, atraumatic Eyes: PERRL, conjunctivae clear, sclera non-icteric ENT: External ear and ear canal without swelling; nose atraumatic; good dentition, tongue normal appearance, pharynx normal Neck: Supple, no LAD Cardio: RRR, no M/G/R, S1 and S2 normal Resp: O2 via NC (at baseline); no respiratory distress, Lungs CTA in all lobes bilaterally, no wheezes, rales, or rhonchi Abdomen: Soft, symmetric, nontender; No masses or hepatosplenomegaly; Bowel sounds normoactive MSK: No deformities; pulses palpable and equal; pitting edema BLE. Neuro: Awake, alert; Sensation intact bilaterally; CN grossly intact Psych: Appropriate mood and affect; poor historian. Daughter present in room at time of visit. Results & Data Results & Data Vital Signs (Past 12 Hours) Vital Signs Temp Pulse Resp BP Pulse Ox O2 Del Method O2 Flow Rate 09/05/25 00:01 95 H 09/04/25 23:00 92 H 22 115/79 97 09/04/25 23:00 92 H 22 115/79 97 09/04/25 22:30 89 24 122/79 97 Nasal Cannula 2 09/04/25 22:03 91 H 22 117/72 97 Nasal Cannula 2 09/04/25 21:30 89 16 140/74 97 Nasal Cannula 2 09/04/25 21:00 82 21 123/77 98 Room Air 2 09/04/25 20:54 77 23 141/71 H 99 Nasal Cannula 2 09/04/25 20:36 86 20 119/77 99 Nasal Cannula 2 09/04/25 20:08 36.3 C L 86 21 152/101 H 97 Nasal Cannula 2 09/04/25 20:06 93 H Laboratory Results 09/04/25 20:37 Aerobic Blood Culture - Pending Blood Anaerobic Blood Culture - Pending 09/04/25 20:19 Aerobic Blood Culture - Pending Blood Anaerobic Blood Culture - Pending 09/04/25 09/04/25 09/04/25 23:05 20:21 20:19 WBC 7.32 RBC 4.26 Hgb 14.2 POC Hgb 14.3 Hct 40.7 POC Hct 42 MCV 95.5 MCH 33.3 MCHC 34.9 RDW Std Deviation 44.1 RDW Coeff of Sam 12.4 Plt Count 218 MPV 10.2 Immature Gran % (Auto) 0.4 Neut % (Auto) 43.0 Lymph % (Auto) 39.8 Coleman % (Auto) 11.7 Eos % (Auto) 4.1 Baso % (Auto) 1.0 Neut # (Auto) 3.15 Lymph # (Auto) 2.91 Coleman # (Auto) 0.86 H Eos # (Auto) 0.30 Baso # (Auto) 0.07 Immature Gran # (Auto) 0.03 PT 10.8 INR 1.0 APTT 22 PTT Ratio 0.8 POC Sodium 139 Sodium 138 POC Potassium 4.0 Potassium 4.0 POC Chloride 99 L Chloride 98 Carbon Dioxide 28 POC Total CO2 25 Anion Gap 12 H POC Anion Gap 20.0 POC BUN 14 BUN 15 Creatinine 1.28 H POC Creatinine 1.3 Est Cr Clr Drug Dosing 43.6 eGFR 41.83 BUN/Creatinine Ratio 11.7 Glucose 244 H POC Glucose (other) 230 H Lactate 3.4 H* 5.1 H* Calcium 9.9 POC Ioniz Calcium Gudelia 1.20 Magnesium 1.8 Total Bilirubin 0.7 AST 14 ALT 12 Alkaline Phosphatase 53 Troponin I High Sens 23.3 H 16.1 H B-Natriuretic Peptide 71 Total Protein 7.1 Albumin 3.7 Globulin 3.4 Albumin/Globulin Ratio 1.1 Lipase 52 Procalcitonin 0.02 Urine Color Urine Appearance Urine pH Ur Specific Savannah Urine Protein Urine Glucose (UA) Urine Ketones Urine Blood Urine Nitrite Urine Bilirubin Urine Urobilinogen Ur Leukocyte Esterase Urine WBC (Auto) Urine RBC (Auto) U Hyaline Cast (Auto) U Epithel Cells (Auto) Urine Bacteria (Auto) Urine Comment 09/04/25 20:11 WBC RBC Hgb POC Hgb Hct POC Hct MCV MCH MCHC RDW Std Deviation RDW Coeff of Sam Plt Count MPV Immature Gran % (Auto) Neut % (Auto) Lymph % (Auto) Coleman % (Auto) Eos % (Auto) Baso % (Auto) Neut # (Auto) Lymph # (Auto) Coleman # (Auto) Eos # (Auto) Baso # (Auto) Immature Gran # (Auto) PT INR APTT PTT Ratio POC Sodium Sodium POC Potassium Potassium POC Chloride Chloride Carbon Dioxide POC Total CO2 Anion Gap POC Anion Gap POC BUN BUN Creatinine POC Creatinine Est Cr Clr Drug Dosing eGFR BUN/Creatinine Ratio Glucose POC Glucose (other) Lactate Calcium POC Ioniz Calcium Gudelia Magnesium Total Bilirubin AST ALT Alkaline Phosphatase Troponin I High Sens B-Natriuretic Peptide Total Protein Albumin Globulin Albumin/Globulin Ratio Lipase Procalcitonin Urine Color Yellow Urine Appearance Clear Urine pH 5.0 Ur Specific Savannah 1.027 Urine Protein 1+ H Urine Glucose (UA) 3+ H Urine Ketones 1+ H Urine Blood Negative Urine Nitrite Negative Urine Bilirubin Negative Urine Urobilinogen Negative Ur Leukocyte Esterase Negative Urine WBC (Auto) 0-5 Urine RBC (Auto) 0-2 U Hyaline Cast (Auto) 0-2 U Epithel Cells (Auto) 0-2 Urine Bacteria (Auto) None Seen Urine Comment Diagnostic Findings Abdomen/Pelvis CT 09/04/25 20:14 Exam(s): CT ABDOMEN + PELVIS With Contrast IV Amt: 90 ml optiray 320 EXAM: CT Abdomen and Pelvis With Intravenous Contrast CLINICAL HISTORY: Abdominal pain, ? UTI. TECHNIQUE: Axial computed tomography images of the abdomen and pelvis with intravenous contrast. CTDI is 38.67 mGy and DLP is 1816.82 mGy-cm. Automated exposure control was utilized for the study. A dose lowering technique was utilized adhering to the principles of ALARA. CONTRAST: Patient received 90 ml optiray 320 of IV contrast COMPARISON: Noncontrast CT abdomen and pelvis 12/02/2023 FINDINGS: Artifacts: Scatter artifact likely related to patient's arm position. Scatter artifact likely related to patient's body habitus. Limitations: There is respiratory artifact, which degrades image quality on multiple image slices. Lung bases: No significant abnormality. No mass. No consolidation. ABDOMEN: Liver: The liver is stable in appearance. No focal abnormality identified. Gallbladder and bile ducts: No significant abnormality. No calcified stones. No ductal dilation. Pancreas: No significant abnormality. No mass. No ductal dilation. Spleen: No significant abnormality. No splenomegaly. Adrenals: No significant abnormality. No mass. Kidneys and ureters: The kidneys demonstrate stable contours. No evidence for pyelonephritis with incidental cortical atrophy involving the anterior aspect of the left midpole kidney. No hydronephrosis or obstructive ureteral stones. Incidental punctate nonobstructive nephrolithiasis inferior pole of the left kidney. There is an 11 mm cortical cyst involving the lateral aspect of the left kidney. No evidence for abnormal internal architecture or solid components. There is a 3 cm cyst in the inferior aspect of the right kidney. No abnormal internal architecture identified. Stomach and bowel: No evidence for focal high-grade bowel obstruction. No definite asymmetric bowel mucosal abnormality. [id number] stool burden. No diverticulitis. PELVIS: Appendix: No findings to suggest acute appendicitis. Bladder: Diffuse bladder wall prominence is noted. No bladder stones. Reproductive: Status post hysterectomy. ABDOMEN and PELVIS: Intraperitoneal space: No significant abnormality. No free air. No significant fluid collection. Bones/joints: No acute fracture. No dislocation. Soft tissues: No significant abnormality. Vasculature: No significant abnormality. No abdominal aortic aneurysm. Lymph nodes: No significant abnormality. No enlarged lymph nodes. IMPRESSION: 1. The kidneys demonstrate stable contours. No evidence for pyelonephritis with incidental cortical atrophy involving the anterior aspect of the left midpole kidney. No hydronephrosis or obstructive ureteral stones. Incidental punctate nonobstructive nephrolithiasis inferior pole of the left kidney. 2. Diffuse bladder wall prominence is noted. No bladder stones. Suspect normal variation. However, please correlate with urinalysis for potential subtle cystitis. 3. No evidence for focal high-grade bowel obstruction. No definite asymmetric bowel mucosal abnormality. [id number]-gf-[id number] stool burden. No diverticulitis. No free intraperitoneal fluid or pneumoperitoneum. Electronically signed by: Yvon Goyal MD 09/04/25 21:35 PM Chest X-Ray 09/04/25 20:14 Exam(s): XR CXR 1 VIEW EXAM: XR Chest, 1 View CLINICAL HISTORY: Abd pain, peripheral edema. TECHNIQUE: Frontal view of the chest. COMPARISON: XR Chest dated 08/20/2025 FINDINGS: Lungs: Accounting for overlying prominent soft tissues of the lung bases, no focal airspace consolidation. The previously noted prominent pulmonary vascular changes on the prior examination have resolved. Pleural space: No significant abnormality. No pneumothorax. No large pleural effusion. Heart: The cardiac silhouette is stable and presumed accentuated by portable technique. Mediastinum: No significant abnormality identified. The trachea is midline. Bones/joints: No significant abnormality. No acute fracture. IMPRESSION: Accounting for overlying prominent soft tissues of the lung bases, no focal airspace consolidation. The previously noted prominent pulmonary vascular changes on the prior examination have resolved. No large pleural effusion or pneumothorax. Electronically signed by: Yvon Goyal MD 09/04/25 21:54 PM Medications Administered 1L NSS Ceftriaxone 2g IV ECG Additional Comments: Sinus rhythm with first-degree AV block, LBBB 92 bpm, HI 216, QRS 146, QT/QTc 412/509, PRT 47/20/127 Code Status & VTE Plan Code Status Full Supervising Physician Co-Signing Physician Notes Attending addendum: I have physically seen this patient, have supervised the MARVA's activities, and agree with the H&P unless as otherwise noted. Assessment and Plan: The patient is a 80-year-old female past medical history including gait ataxia, cardiomyopathy, HFrEF, seizure disorder, chronic cerebral ischemia, vascular dementia, hypothyroidism, hypertension, ascending aortic dilatation, hyperlipidemia, GERD, chronic hypoxemic respiratory failure, and diabetes mellitus. She presents to the emergency department with abdominal pain. Most recent hospitalizations include the followin/10-07/15/1307/18/2025, 08/01- 08/03/2025, 08/08-08/09/2025, and 08/15-08/16/2025. Evaluation in the emergency department included creatinine 1.28, glucose 244, troponin 16.1 was increased to 23.3 on follow-up. Imaging suggested the possibility of cystitis, with patient having negative UA. Abdominal pain- Patient with history of recurrent urinary tract infection She received normal saline 1 L fluid bolus and ceftriaxone IV from the ED UA is negative for infection, will hold on additional biotics CT suggest mild to moderate stool burden Bowel regimen as noted Follow urine culture sensitivity Acute kidney injury- Creatinine 1.28, with baseline 1.06 Status post 1 L normal saline bolus in the ED IV fluids as noted above, recheck laboratories in the a.m. HFrEF/hypertension/cerebrovascular disease- Temporarily hold furosemide and Entresto Continue carvedilol and clopidogrel Serial laboratories as noted Remaining orders and notations as noted PG Care Time/CCT Total # of Minutes Spent Total Time Spent with Patient: Total time spent is greater than 50% in coordination of care (as documented) at patient's floor/unit and/or counseling patient: Coding Level of Care Code 27693 INT INP/OBS CARE 375MIN Diagnoses Abdominal pain R10.84 Abdominal location: generalized Renal insufficiency N28.9 Elevated troponin R79.89 Elevated lactic acid level R79.89 Type 2 diabetes mellitus E11.9 (1) Abdominal pain Abdominal location: generalized Qualified Code(s): R10.84 - Generalized abdominal pain
--- NOTE | 2025-09-05 00:33 | Emergency Department Note ---
ED Visit Note The patient was signed out to me at change of shift by Tomasa Sanders PA-C. Patient was pending repeat troponin level, to ensure no increase. Initial troponin drawn at approximately 2019 resulted at 16.1, with repeat at 2305 resulting at 23.3. I do believe this is a significant enough increase, to admit the patient for elevated troponin. The patient does also have an elevated lactic acid level, which is of unknown significance. I recommended admission to the hospitalist group for further evaluation. Patient was admitted to the [facility] hospitalist group, Dr. Eagle agreed to evaluate accept the patient for admission. Please refer to his documentation for further patient workup and care.
[2025-09-05] MEDS: POLYETHYLENE (MIRALAX) 17 GM PACK PO ONE (02:33)
[2025-09-05] MEDS: LORazepam Inj 0.25 MG in SYRINGE 0.125 ML IV PRN (03:43)
[2025-09-05] MEDS: LORazepam 1 MG/1 ML SYR ED Inj Use ONE (03:44)
[2025-09-05] MEDS ORDERED: GLUCOSE 40% GEL 15 GM TUBE PO PRN (04:19)
[2025-09-05] MEDS ORDERED: CARBOHYDRATES FOR HYPOGLYCEMIA PO PRN (04:19)
[2025-09-05] MEDS ORDERED: GLUCOSE 10 TAB/TUBE PO PRN (04:19)
[2025-09-05] MEDS ORDERED: GLUCAGON FOR INJ 1 MG VIAL SQ PRN (04:19)
[2025-09-05] MEDS ORDERED: POLYETHYLENE (MIRALAX) 17 GM PACK PO PRN (04:19)
[2025-09-05] MEDS ORDERED: DEXTROSE 50% 50 ML SYRINGE IV PRN (04:19)
[2025-09-05] MEDS: LEVOTHYROXINE SODIUM 25 MCG TABLET PO SCH (05:50)
[2025-09-05] MEDS: DICLOFENAC SOD 1% GEL 100 GM TUBE EXT SCH (05:50)
[2025-09-05 07:04] LABS: Anion Gap 8.0 (3-11); Blood Urea Nitrogen 13.0 mg/dl (6-23); Calcium 9.2 mg/dl (8.6-10.3); Carbon Dioxide 31.0 mmol/L (21-32); Chloride 101.0 mmol/L (98-107); Creatinine Clr Calc Pharmacy 48.6 ml/min; Glucose 290.0 mg/dl (70-99(Fasting)); Potassium 3.8 mmol/L (3.5-5.1); Sodium 140.0 mmol/L (136-145)
[2025-09-05] MEDS: lamoTRIgine 100 MG TAB PO SCH ×2 (08:46→21:07)
[2025-09-05] MEDS: CLOPIDOGREL BISULFATE 75 MG TAB PO SCH (08:46)
[2025-09-05] MEDS: DIVALPROEX EXTENDED RELEASE 500 MG TAB PO SCH ×2 (08:46→21:07)
[2025-09-05] MEDS: FERROUS SULFATE 325 MG TAB PO SCH (08:46)
[2025-09-05] MEDS: POLYETHYLENE (MIRALAX) 17 GM PACK PO SCH (08:52)
[2025-09-05] MEDS: LANTUS PER UNIT CHARGE SQ SCH (09:06)
[2025-09-05] MEDS: INSULIN ASPART PER UNIT CHARGE SC SCH (09:06)
--- NOTE | 2025-09-05 09:29 | Hospitalist Progress Note ---
Date of Service September 05, 2025 Assessment & Plan (1) Abdominal pain: (2) Renal insufficiency: (3) Elevated troponin: (4) Elevated lactic acid level: (5) Type 2 diabetes mellitus: Plan 80-year-old female PMHx gait ataxia, cardiomyopathy, HFrEF, seizure disorder, chronic cerebral ischemia, vascular dementia, hypothyroidism, HTN, ascending aorta dilatation, HLD, GERD, chronic hypoxemic respiratory failure, and DM presenting for abdominal pain. Her evaluation is significant for a mildly elevated Cr at 1.28, as well as a decreasing but elevated lactate (5.1-> 3.4) and increasing troponin (16.1-> 23.3). Her imaging suggests possible cystitis in the setting of a negative UA, no other acute findings. #Abdominal pain C/o abdominal pain, was concerned for UTI. Received IVF + 1 dose Ceftriaxone in ED. Imaging concerning for some constipation, pt however reports normal BM. Goal will be to help alleviate some of the stool burden, gently. - CBC stable; lactate 5.1-> 3.4; trop 16.1-> 23.3; lipase WNL; procal WNL - UA negative for infection - CTAP mild-moderate stool burden, possible cystitis - Deferred further abx- Stable WBC + procal, no fevers, and no source of infection at present - lactate not proportionate to other findings bowel regimen as ordered for constipation #Renal insufficiency Mild elevation of Cr, no h/o CKD. Received 1L NSS in ED. - Bladder scan prn - Defer further IVF at this time - h/o HFrEF - Hold furosemide + Entresto at admission #Elevated troponin H/o elevated troponin levels not in setting of ACS. No CP, SOB, or palpitations at present. - Trop 16.1-> 23.3; trend - EKG sinus rhythm with 1st degree AV block, LBBB @ 92 bpm - Echo 07/2025 with EF 20-25% - Likely 2/2 demand - Will monitor on tele #Elevated lactic acid Has had elevated lactic acid levels in the past, almost every time she has the lab drawn. Pt is on metformin, 1,500mg daily, likely contributes to this finding. She has a history of seizures, so if she did have a recent episode this could be an additional possible etiology. Overall, renal and liver functions stable but poor clearance could be considered. No signs of infection at this time. - Lactate 5.1-> 3.4 -> repeat am - Procal, WBC WNL - UA without infection - CXR no PNA or abnormalities - CTAP with mild-moderate stool burden, ? cystitis (negative UA) - metformin held. may need to consider alternative oral hypogycemic at time of discharge/on close follow up #T2DM H/o T2DM. At home regimen includes insulin glargine 18U HS, metformin. Hyperglycemic at admission. - Glucose on admission 244; Most recent A1c 08/2025 @ 8.9% - Hold home regimen -short and long acting insulin #HFrEF- BNP 71, CXR without acute findings, last echo 07/2025 with EF 20-25%; as above #Seizures- "Unconscious episodes for hours" per daughter, reports that she had one before arrival to ED; follows with neurology who believes that she is having "breakthrough seizures"; Seizure precautions in place; Divalproex, lamotrigine - continue eeg neuro consultation #HTN- home meds #Hypothyroidism- TSH 08/20/2025 @ 9.177; Levothyroxine - continue #Cerebrovascular disease- Plavix - continue #Chronic hypoxemia respiratory failure- CXR stable; 2L O2 at atll times at baseline - continue #GERD- Omeprazole - continue Dispo: Admit, med/tele VTE Prophylaxis: SCDs This document was dictated utilizing CRMnext. Please excuse any grammatical errors that may be secondary to use of this software. Admission and Anticipated Discharge Date Admission Date: September 05, 2025 Subjective denies Pain or any other symptoms. does not recall last bowel movement. denies abd pain nausea vomiting fevers chills. denies headache visual change numnbess tingling wkness or other neurological sypmtoms. states she "does not know" when asked other simple questions such as her awareness of history of seizures. Review of Systems Review of Systems: All systems reviewed & are unremarkable except as noted in Subjective Physical Exam Physical Exam: General: No acute distress Skin: Warm and dry Head: Normocephalic, atraumatic Eyes: PERRL, conjunctivae clear, sclera non-icteric ENT: External ear and ear canal without swelling; nose atraumatic; good dentition, tongue normal appearance, pharynx normal Neck: Supple, no LAD Cardio: RRR, no M/G/R, S1 and S2 normal Resp: O2 via NC (at baseline); no respiratory distress, Lungs CTA in all lobes bilaterally, no wheezes, rales, or rhonchi Abdomen: Soft, symmetric, nontender; No masses or hepatosplenomegaly; Bowel sounds normoactive MSK: No deformities; pulses palpable and equal; pitting edema BLE. Neuro: Awake, alert; Sensation intact bilaterally; CN grossly intact Psych: Appropriate mood and affect; poor historian. Daughter present in room at time of visit. Results & Data Results & Data Vital Signs (Past 12 Hours) Vital Signs Temp Pulse Pulse Resp BP BP Pulse Ox 09/05/25 08:40 36.7 C 93 H 18 146/79 H 98 09/05/25 07:49 92 H 09/05/25 04:34 09/05/25 04:34 36.3 C L 89 16 104/66 96 09/05/25 04:19 36.3 C L 89 16 104/66 96 09/05/25 04:19 09/05/25 04:05 87 09/05/25 02:00 95 H 18 120/84 96 09/05/25 01:30 95 H 21 116/86 96 09/05/25 01:00 95 H 22 134/83 96 09/05/25 00:30 94 H 18 122/77 97 09/05/25 00:01 95 H 09/05/25 00:00 96 H 18 139/82 97 09/04/25 23:30 94 H 21 133/67 97 09/04/25 23:00 92 H 22 115/79 97 09/04/25 23:00 92 H 22 115/79 97 09/04/25 22:30 89 24 122/79 97 09/04/25 22:03 91 H 22 117/72 97 09/04/25 21:30 89 16 140/74 97 Pulse Ox O2 Del Method O2 Del Method O2 Flow Rate O2 Flow Rate 09/05/25 08:40 Nasal Cannula 2 09/05/25 07:49 09/05/25 04:34 Nasal Cannula 2 09/05/25 04:34 Nasal Cannula 2 09/05/25 04:19 Nasal Cannula 2 09/05/25 04:19 96 Nasal Cannula 2 09/05/25 04:05 09/05/25 02:00 09/05/25 01:30 09/05/25 01:00 09/05/25 00:30 09/05/25 00:01 09/05/25 00:00 09/04/25 23:30 Nasal Cannula 2 09/04/25 23:00 09/04/25 23:00 09/04/25 22:30 Nasal Cannula 2 09/04/25 22:03 Nasal Cannula 2 09/04/25 21:30 Nasal Cannula 2 PG Care Time/CCT Total # of Minutes Spent Total Time Spent with Patient: Total time spent is greater than 50% in coordination of care (as documented) at patient's floor/unit and/or counseling patient: Coding Level of Care Code 55346 SUB INP/OBS CARE 2/35MIN Diagnoses Abdominal pain R10.84 Abdominal location: generalized Renal insufficiency N28.9 Elevated troponin R79.89 Elevated lactic acid level R79.89 Type 2 diabetes mellitus E11.9 (1) Abdominal pain Abdominal location: generalized Qualified Code(s): R10.84 - Generalized abdominal pain
[2025-09-05] MEDS: LACTULOSE SYRUP 20 GM/30 ML UDC PO SCH (09:47)
--- NOTE | 2025-09-05 09:55 | Electrocardiogram Report ---
Test Reason : Blood Pressure : */* mmHG Vent. Rate : 92 BPM Atrial Rate : 92 BPM P-R Int : 216 ms QRS Dur : 146 ms QT Int : 412 ms P-R-T Axes : 47 -20 127 degrees QTcB Int : 509 ms Sinus rhythm with 1st degree A-V block Left bundle branch block Abnormal ECG When compared with ECG of 20-Aug-2025 13:27, T wave inversion less evident in Lateral leads Confirmed by Rusty Lemon ([id number]) on 09/05/2025 9:54:59 AM Referred By: [facility] Confirmed By: Rusty Lemon
--- NOTE | 2025-09-05 13:54 | Electroencephalogram ---
EEG Procedure Note Date of Service September 05, 2025 Start / End Times Start Time: 1:40 PM End Time: 2 PM Referring Physician [place] History Seizure-like episodes Home Medication List Medication Instructions Recorded Confirmed Type cholecalciferol (vitamin D3) 25 25 mcg PO QAM 03/17/23 09/04/25 History mcg (1,000 unit) capsule (Vitamin D3) levothyroxine 25 mcg tablet 25 mcg PO DAILYBB 03/17/23 09/04/25 History (Synthroid) clopidogrel 75 mg tablet 75 mg PO QAM #30 tabs 04/28/23 09/04/25 Rx diclofenac sodium 1 % topical gel 2 g topical TID 02/05/24 09/04/25 History emollient combination no.92 1 applic topical BID Dry skin - 02/05/24 09/04/25 History (Lubriderm Daily Moisture lotion) Legs loperamide 2 mg capsule 2 mg PO UD PRN Diarrhea 02/05/24 09/04/25 History omeprazole 40 mg capsule,delayed 40 mg PO DAILYBB 02/05/24 09/04/25 History release acetaminophen 650 mg 650 mg PO Q4H PRN Pain 01/25/25 09/04/25 History tablet,extended release dextromethorphan-guaifenesin 30 2 tab PO Q12H PRN COUGH/CONGESTION 01/25/25 09/04/25 History mg-600 mg tablet extended hr (Mucinex DM) carvedilol 6.25 mg tablet 6.25 mg PO BID #60 tabs 07/18/25 09/04/25 Rx hydroxyzine HCl 10 mg tablet 10 mg PO Q6H PRN Itching 07/19/25 09/04/25 History insulin glargine 100 unit/mL (3 18 unit subcut HS 07/19/25 09/04/25 History mL) subcutaneous pen (Lantus Solostar U-100 Insulin) cyanocobalamin (vitamin B-12) 500 1,000 mcg (2 x 500 mcg) PO QAM #60 08/03/25 09/04/25 Rx mcg tablet tabs potassium chloride 20 mEq 20 meq PO DAILYBB 08/11/25 09/04/25 History tablet,extended release cranberry 30,000 mg PO DAILY Chronic UTI 08/15/25 09/04/25 History diclofenac sodium 1 % topical gel 2 g topical DAILY PRN Pain 08/15/25 09/04/25 History furosemide 40 mg tablet 80 mg PO DAILY PRN WT GAIN 08/15/25 09/04/25 History nystatin 100,000 unit/gram topical 1 applic topical BID PRN NEEDED 08/15/25 09/04/25 History ointment potassium chloride 20 mEq 20 meq PO DAILY PRN WHEN TAKES 08/15/25 09/04/25 History tablet,extended release LASIX Portable Oxygen #1 ea 08/17/25 09/04/25 Rx dextromethorphan-guaifenesin 10 10 ml PO Q6H PRN Cough 08/20/25 09/04/25 History mg-100 mg/5 mL oral syrup (Tussin DM) ferrous sulfate 325 mg (65 mg 325 mg PO Q OTHER DAY 08/20/25 09/04/25 History iron) tablet (FeroSul) magnesium oxide 400 mg PO DAILY 08/20/25 09/04/25 History metformin 500 mg tablet 1,000 mg PO QAM 08/20/25 09/04/25 History metformin 500 mg tablet 500 mg PO QPM 08/20/25 09/04/25 History multivitamin 1 tab PO DAILY 08/20/25 09/04/25 History sacubitril 24 mg-valsartan 26 mg 1 tab PO BID #60 tabs 08/22/25 09/04/25 Rx tablet (Entresto) Oxygen Home #2 L 08/25/25 09/04/25 Rx divalproex 500 mg tablet,extended 500 mg PO DAILY #30 tabs 08/30/25 09/04/25 Rx release 24 hr furosemide 40 mg tablet (Lasix) 80 mg PO DAILY 08/30/25 09/04/25 History lamotrigine 150 mg tablet 150 mg PO BID #60 tabs 08/30/25 09/04/25 Rx (Subvenite) acetaminophen 325 mg tablet 650 mg PO Q4 PRN Fever 09/04/25 09/04/25 History Inpatient Medication List Carvedilol (Carvedilol 6.25 Mg Tab) 6.25 mg PO BIDM ROSANNA Stop: 10/05/25 07:59 Last Admin: 09/05/25 08:46 Dose: 6.25 mg Documented By: benton Clopidogrel Bisulfate (Clopidogrel Bisulfate 75 Mg Tab) 75 mg PO QAM [facility] Stop: 10/05/25 08:59 Last Admin: 09/05/25 08:46 Dose: 75 mg Documented By: benton Diclofenac Sodium (Diclofenac Sod 1% Gel 100 Gm Tube) 2 gm EXT TID@0600,1200,1800 [facility]; Protocol Stop: 10/05/25 05:59 Last Admin: 09/05/25 12:53 Dose: Not Given Documented By: benton Admin: 09/05/25 05:50 Dose: 2 gm Documented By: TERRY Divalproex Sodium (Divalproex Extended Release 500 Mg Tab) 500 mg PO DAILY [facility] Stop: 10/05/25 08:59 Last Admin: 09/05/25 08:46 Dose: 500 mg Documented By: benton Ferrous Sulfate (Ferrous Sulfate 325 Mg Tab) 325 mg PO Q2D@0900 [facility] Stop: 10/05/25 08:59 Last Admin: 09/05/25 08:46 Dose: 325 mg Documented By: benton Lorazepam 0.25 mg/ Syringe 0.25 mls @ 2 mls/min IV NOW PRN PRN Reason: Anxiety Stop: 10/05/25 03:27 Last Admin: 09/05/25 03:43 Dose: 2 mls/min Documented By: AMY Insulin Aspart (Insulin Aspart Per Unit Charge) 0 units SC ACHS [facility] Stop: 10/05/25 07:29 Last Admin: 09/05/25 12:54 Dose: 6 units Documented By: benton Co-signed By: [email or web address] Admin: 09/05/25 09:06 Dose: 8 units Documented By: benton Co-signed By: du Insulin Glargine (Lantus Per Unit Charge) 7 units SQ BID [facility] Stop: 10/05/25 08:59 Last Admin: 09/05/25 09:06 Dose: 7 units Documented By: benton Co-signed By: du Lactulose (Lactulose Syrup 20 Gm/30 Ml Udc) 20 gm PO BID [facility] Stop: 10/05/25 09:44 Last Admin: 09/05/25 10:04 Dose: Not Given Documented By: benton Lamotrigine (Lamotrigine 100 Mg Tab) 150 mg PO BID [facility] Stop: 10/05/25 08:59 Last Admin: 09/05/25 08:46 Dose: 150 mg Documented By: benton Levothyroxine Sodium (Levothyroxine Sodium 25 Mcg Tablet) 25 mcg PO DAILYBB [facility] Stop: 10/05/25 06:29 Last Admin: 09/05/25 05:50 Dose: 25 mcg Documented By: TERRY Pantoprazole Sodium (Pantoprazole 40 Mg Tab) 40 mg PO DAILYBB ROSANNA Stop: 10/05/25 06:29 Last Admin: 09/05/25 05:50 Dose: 40 mg Documented By: TERRY Polyethylene Glycol (Polyethylene (Miralax) 17 Gm Pack) 17 gm PO DAILY [facility] Stop: 10/05/25 08:59 Last Admin: 09/05/25 08:52 Dose: 17 gm Documented By: benton Discontinued Medications Hydroxyzine HCl (Hydroxyzine Hcl 10 Mg Tab) 10 mg PO NOW STA Stop: 09/05/25 02:52 Last Admin: 09/05/25 03:49 Dose: 10 mg Documented By: AMY Sodium Chloride (Nss) 250 mls @ 999 mls/hr IV .Q16M ONE Stop: 09/04/25 20:29 Last Infusion: 09/04/25 21:17 Dose: Infused Documented By: [facility] Admin: 09/04/25 20:55 Dose: 999 mls/hr Documented By: ZARI Ceftriaxone Sodium (Rocephin) 2,000 mg in 50 mls @ 100 mls/hr IV NOW STA Stop: 09/04/25 21:41 Last Infusion: 09/04/25 21:50 Dose: Infused Documented By: Admin: 09/04/25 21:17 Dose: 100 mls/hr Documented By: ZARI Sodium Chloride (Nss) 500 mls @ 999 mls/hr IV .Q31M ONE Stop: 09/04/25 22:34 Last Infusion: 09/04/25 23:38 Dose: Infused Documented By: Admin: 09/04/25 22:09 Dose: 999 mls/hr Documented By: ZARI Sodium Chloride (Nss) 250 mls @ 999 mls/hr IV .Q16M ONE Stop: 09/04/25 22:19 Last Infusion: 09/04/25 22:30 Dose: Infused Documented By: Admin: 09/04/25 22:09 Dose: 999 mls/hr Documented By: ZARI Ioversol (Optiray 320 100ml) 90 ml IV ONCE ONE Stop: 09/04/25 20:47 Last Admin: 09/04/25 20:47 Dose: 90 ml Documented By: DARIEN Lorazepam (Lorazepam 1 Mg/1 Ml Syr Ed Inj Use) Confirm Administered Dose 1 mg .ROUTE .STK-MED ONE Stop: 09/05/25 03:41 Last Admin: 09/05/25 03:44 Dose: Not Given Documented By: AMY Polyethylene Glycol (Polyethylene (Miralax) 17 Gm Pack) 17 gm PO NOW ONE Stop: 09/05/25 01:13 Last Admin: 09/05/25 02:33 Dose: 17 gm Documented By: AMY Description This is a 21 electrode EEG with a single channel dedicated to limited EKG. The electrodes were placed in accordance with the International 10-20 system. There is a posterior dominant rhythm of 10 Hz which is symmetrically distributed and attenuates with eye opening. There is a normal anterior to posterior organization. Photic stimulation is unremarkable. Hyperventilation is not performed. There is intermittent right parietal and left posterior temporal theta slowing occurring independently. There is intermittent movement artifact that contaminates the record. There is a symmetric frontal beta rhythm. Interpretation Abnormal awake/drowsy EEG with evidence of independent right parietal and left posterior temporal theta slowing. These findings may correlate with underlying structural or functional abnormality. There are no epileptiform abnormalities. [facility] Procedure Codes Indication for Procedure (1) Seizure disorder: Neurology Neurology: 59032 EEG include record awake & drowsy
--- NOTE | 2025-09-05 18:00 | Neurology Consultation ---
Date of Consultation September 05, 2025 Assessment & Plan (1) Vascular dementia: (2) Chronic cerebral ischemia: (3) Unresponsive episode: Plan 80-year-old female with extensive chronic cerebrovascular disease, multiple relatively large chronic infarcts, left cerebellar hemisphere, right parietal lobe, left temporoparietal area. History of recurrent unresponsive episodes, lapse in awareness, loss of consciousness. Has not had any observed obvious clinical seizure activity, however. She has had extensive neurological evaluation fairly recently including brain MRI, CT angiography of the head and neck, several EEGs including ambulatory EEG monitoring. The reason for these episodes is not entirely clear, no epileptiform abnormalities have been observed on any of her EEGs including the most recent EEG this morning. She does have some focal slowing on EEG related to her underlying infarcts. Her CT angiography does not reveal any evidence of vertebrobasilar insufficiency. She does have significant cardiopulmonary disease, however, that probably contributes to these episodes of unresponsiveness in the context of her extensive chronic cerebrovascular disease. Again, she has chronic hypoxemic respiratory failure requiring home O2 and also has heart failure with significantly reduced ejection fraction. She also has a left bundle branch block and has had some arrhythmias. Previous mobile cardiac outpatient telemetry has not revealed a definitive arrhythmia that correlates with her episodes, however. Given the possibility of seizures, however, in spite of the negative EEG evaluations, I have been empirically treating this patient with lamotrigine, and most recently Depakote. It does not appear that either of these medications have made any impact on the occurrence of these unresponsive episodes. This patient also has a probable vascular dementia. According to nursing staff, she has had some tendency for irritability, agitation, and mildly aggressive behavior at times. At this point, I would recommend increasing her dosage of Depakote ER to 1000 mg daily. Depakote may also help with mood irritability and agitation to an extent. I am not very optimistic, however, that a larger dosage of Depakote will reduce the frequency of the observed unresponsive episodes. I would also recommend reducing her dosage of lamotrigine to 100 mg twice daily. Going forward, may taper off lamotrigine altogether. Perhaps if her cardiopulmonary status can be further optimized, there may be some improvement in her neurological status. I also wonder if excessive somnolence could be contributing to any of these unresponsive episodes. It may be worthwhile to consider pursuing an outpatient assessment with sleep medicine. In looking through her [facility] record, it is not clear to me if obstructive sleep apnea has been considered or assessed previously. Perhaps she would benefit from CPAP if medically appropriate. History of Present Illness Reason for Consultation: seizure? Requesting Physician: Lit Attending Physician: Paul Murrieta MD History of Present Illness The patient is an 80-year-old female who is known to me, I last saw her as an outpatient on August 30, 2025, per my clinic note at that time, "80-year-old female with a history of extensive chronic cerebrovascular disease, multiple infarcts, vascular dementia, recurrent episodes of loss of consciousness, unresponsiveness, history of severe heart failure and chronic hypoxemic respiratory failure. Most of patient's previous EEGs have been normal including ambulatory EEG monitoring. Most recent EEG did reveal left temporal slowing and sharps. She has been taking lamotrigine empirically without much influence on the frequency of these episodes. 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 At this point, patient will continue with lamotrigine 150 mg twice daily. I have recommended a trial of Depakote as an adjunctive antiseizure medication. I am not very optimistic, however, that escalating her antiseizure medication regimen will further mitigate these episodes, especially if they are due to cerebrovascular insufficiency, heart failure, and chronic hypoxemic respiratory failure. She will continue to follow with cardiology and pulmonology. Up-to-date trough antiseizure medication levels will be checked in 1 week. Return to clinic in 4 months." She presented again to the emergency department on September 04, 2025 with abdominal pain, possible urinary tract infection, she is a resident at [facility]. She had reportedly been refusing some of her medications prior to admission. Initial testing was fairly unrevealing, she was treated with IV fluids and apparently improved. Although the discharge from the emergency department was anticipated, her troponins had increased modestly and she was subsequently admitted for further evaluation and care. She has apparently continued to have recurrent episodes of loss of consciousness, reportedly lasting for hours according to her daughter. The patient is currently in a tentative and seems to be relatively amnestic for these episodes, she is an unreliable historian. She did have another EEG completed this morning. There was evidence of independent right parietal and left posterior temporal slowing suggestive of underlying structural or functional abnormality, no epileptiform abnormalities were observed, however. She has not had any recent neuroimaging completed. Last CT of the head done at [facility] August 15, 2025 revealed several chronic infarcts, I independently reviewed these images. There is a chronic infarct within the left cerebellar hemisphere a chronic infarct within the right parietal lobe and a chronic infarct within the left temporoparietal lobe. There is generalized atrophy, no hydrocephalus. These findings were also seen on her last brain MRI completed on August 01, 2025, I independently reviewed these images as well. CT angiography of the head and neck was last completed August 08, 2025, the studies are unremarkable, no significant vascular lesion. An electrocardiogram completed September 04 had revealed a sinus rhythm with first-degree AV block. Her ECGs have been relatively unchanged for at least the past month, has had occasional PVCs as well. Her last echocardiogram was completed July 16, 2025, revealing severely reduced systolic function, EF 20 to 25%, global hypokinesis, severe concentric left ventricular hypertrophy, abnormal septal motion consistent with bundle branch block, patient's left ventricular systolic function has declined compared with the previous echocardiogram done in May 2024. I reviewed her last pulmonology visit note from August 25, 2025 indicating chronic hypoxic respiratory failure, recommendation was for home O2. I reviewed her last [facility] heart failure clinic note from August 22, 2025 indicating heart failure with reduced ejection fraction, left bundle branch block, hypertension, was started on Entresto. Allergies Allergy/AdvReac Type Severity Reaction Status Date / Time aspirin Allergy Severe Hives Verified 09/04/25 21:10 NSAIDS (Non-Steroidal Allergy Intermediate Hives Verified 09/04/25 21:10 Anti-Inflamma Penicillins Allergy Intermediate Hives Verified 09/04/25 21:10 vancomycin Allergy Intermediate Redness of Verified 08/30/25 09:38 Skin fenofibrate Allergy Unknown ON PT MED Verified 08/30/25 09:38 LIST naproxen Allergy Unknown Unknown - Verified 09/04/25 21:10 On Med List from [facility] propoxyphene Allergy Unknown ON PT MED Verified 08/30/25 09:38 LIST Home Medications Medication Instructions Recorded Confirmed Type cholecalciferol (vitamin D3) 25 25 mcg PO QAM 03/17/23 09/04/25 History mcg (1,000 unit) capsule (Vitamin D3) levothyroxine 25 mcg tablet 25 mcg PO DAILYBB 03/17/23 09/04/25 History (Synthroid) clopidogrel 75 mg tablet 75 mg PO QAM #30 tabs 04/28/23 09/04/25 Rx diclofenac sodium 1 % topical gel 2 g topical TID 02/05/24 09/04/25 History emollient combination no.92 1 applic topical BID Dry skin - 02/05/24 09/04/25 History (Lubriderm Daily Moisture lotion) Legs loperamide 2 mg capsule 2 mg PO UD PRN Diarrhea 02/05/24 09/04/25 History omeprazole 40 mg capsule,delayed 40 mg PO DAILYBB 02/05/24 09/04/25 History release acetaminophen 650 mg 650 mg PO Q4H PRN Pain 01/25/25 09/04/25 History tablet,extended release dextromethorphan-guaifenesin 30 2 tab PO Q12H PRN COUGH/CONGESTION 01/25/25 09/04/25 History mg-600 mg tablet extended [id number] hr (Mucinex DM) carvedilol 6.25 mg tablet 6.25 mg PO BID #60 tabs 07/18/25 09/04/25 Rx hydroxyzine HCl 10 mg tablet 10 mg PO Q6H PRN Itching 07/19/25 09/04/25 History insulin glargine 100 unit/mL (3 18 unit subcut HS 07/19/25 09/04/25 History mL) subcutaneous pen (Lantus Solostar U-100 Insulin) cyanocobalamin (vitamin B-12) 500 1,000 mcg (2 x 500 mcg) PO QAM #60 08/03/25 09/04/25 Rx mcg tablet tabs potassium chloride 20 mEq 20 meq PO DAILYBB 08/11/25 09/04/25 History tablet,extended release cranberry 30,000 mg PO DAILY Chronic UTI 08/15/25 09/04/25 History diclofenac sodium 1 % topical gel 2 g topical DAILY PRN Pain 08/15/25 09/04/25 History furosemide 40 mg tablet 80 mg PO DAILY PRN WT GAIN 08/15/25 09/04/25 History nystatin 100,000 unit/gram topical 1 applic topical BID PRN NEEDED 08/15/25 09/04/25 History ointment potassium chloride 20 mEq 20 meq PO DAILY PRN WHEN TAKES 08/15/25 09/04/25 History tablet,extended release LASIX Portable Oxygen #1 ea 08/17/25 09/04/25 Rx dextromethorphan-guaifenesin 10 10 ml PO Q6H PRN Cough 08/20/25 09/04/25 History mg-100 mg/5 mL oral syrup (Tussin DM) ferrous sulfate 325 mg (65 mg 325 mg PO Q OTHER DAY 08/20/25 09/04/25 History iron) tablet (FeroSul) magnesium oxide 400 mg PO DAILY 08/20/25 09/04/25 History metformin 500 mg tablet 1,000 mg PO QAM 08/20/25 09/04/25 History metformin 500 mg tablet 500 mg PO QPM 08/20/25 09/04/25 History multivitamin 1 tab PO DAILY 08/20/25 09/04/25 History sacubitril 24 mg-valsartan 26 mg 1 tab PO BID #60 tabs 08/22/25 09/04/25 Rx tablet (Entresto) Oxygen Home #2 L 08/25/25 09/04/25 Rx divalproex 500 mg tablet,extended 500 mg PO DAILY #30 tabs 08/30/25 09/04/25 Rx release 24 hr furosemide 40 mg tablet (Lasix) 80 mg PO DAILY 08/30/25 09/04/25 History lamotrigine 150 mg tablet 150 mg PO BID #60 tabs 08/30/25 09/04/25 Rx (Subvenite) acetaminophen 325 mg tablet 650 mg PO Q4 PRN Fever 09/04/25 09/04/25 History Patient History Medical History Unresponsive episode 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 Acute respiratory failure with hypoxia Nonobstructive atherosclerosis of coronary artery Thoracic aortic aneurysm LBBB (left bundle branch block) Depression Infarction of kidney Neuropathy Recurrent UTI (urinary tract infection) Strain of rotator cuff of right shoulder Surgical History S/P colonoscopy S/P hysterectomy S/P appendectomy History of back surgery Status post right knee replacement No pertinent past surgical history Family History Mother Heart disease Dementia Father Lung cancer Social History Smoking Status: Never smoker Tobacco Type: Declines Second Hand Exposure: No; Do You Dip or Chew Tobacco: No; Tobacco Cessation Education Requested by Patient: No Hx Alcohol Use: No Hx Substance Use: No Preferred Language: Khmer Communication Ability: Effective Communication Ability Comment: confused, but clear Visual Impairment: No Limitations Hearing Ability: Normal [employer] Police Captain Required: No Beliefs That Will Affect Care: None marital status: / Current Living Situation: Care Home Current Living Situation Comment: [facility] current occupational status: retired 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 Review of Systems Review of Systems: Other (Unobtainable and unreliable due to poor attention) Exam (Neuro) Constitutional: well developed, well nourished and + altered mental status Eyes: normal visual garay by confrontation, PERRL and EOM intact bilaterally; no nystagmus Neurologic: Oriented to:: Person; negative Place or Time Memory: Remote Intact; negative Short Term Intact Attention: negative Span Intact Speech Fluency: negative Dysarthria or Dysfluency Speech Aphasia: negative Aphasia Fund of Knowledge: Vocabulary Cranial Nerves: Normal II, III, IV, , V, VII, VIII, IX, X, XI and XII Motor Strength: Normal Lower Extremities and Normal Upper Extremities Motor Tone: Normal Lower Extremities and Normal Upper Extremities Muscle Bulk/Involuntary Movements: No Involuntary Movements; negative Muscle Atrophy Sensation: Light Touch Intact, Pain/Temperature Intact and Proprioception Intact Coordination: negative Dysdiadochokinesia or Finger-Nose Abnormal Deep Tendon Reflexes: Rt Triceps: 1+, Lt Triceps: 1+, Rt Biceps: 1+, Lt Biceps: 1+, Rt Brachioradialis: 1+, Lt Brachioradialis: 1+, Rt Patellar: 1+ and Lt Patellar: 1+ Details: Examined seated in bedside chair Results & Data Vital Signs (Past 12 Hours) Vital Signs Temp Pulse Pulse Resp BP BP Pulse Ox 09/05/25 16:20 36.4 C L 89 19 120/71 100 09/05/25 14:18 89 09/05/25 12:02 36.3 C L 82 19 143/74 H 99 09/05/25 10:07 09/05/25 08:40 36.7 C 93 H 18 146/79 H 98 09/05/25 07:49 92 H O2 Del Method O2 Flow Rate 09/05/25 16:20 Nasal Cannula 100 09/05/25 14:18 09/05/25 12:02 Nasal Cannula 2 09/05/25 10:07 Nasal Cannula 2 09/05/25 08:40 Nasal Cannula 2 09/05/25 07:49 Laboratory Results WBC 7.32, hemoglobin 14.2, platelet count 218, sodium 140, potassium 3.8, BUN 13, creatinine 1.18, glucose 290, calcium 9.2, magnesium 1.8, AST 14, ALT 12, high-sensitivity troponin 36.4 Coding Level of Care Code 41880 INT INP/OBS CARE 3/75MIN Diagnoses Moderate vascular dementia with other behavioral disturbance F01.B18 Dementia severity: moderate Dementia behavioral or psychological symptom: with other behavioral disturbance Chronic cerebral ischemia I67.82 Unresponsive episode R40.4 Time Spent (min) 80 Comment Total time includes patient contact, chart review, counseling, note preparation (1) Vascular dementia Dementia severity: moderate Dementia behavioral or psychological symptom: with other behavioral disturbance Qualified Code(s): F01.B18 - Vascular dementia, moderate, with other behavioral disturbance
[2025-09-06 07:35] LABS: Anion Gap 10.0 (3-11); Blood Urea Nitrogen 12.0 mg/dl (6-23); Calcium 9.8 mg/dl (8.6-10.3); Carbon Dioxide 28.0 mmol/L (21-32); Chloride 103.0 mmol/L (98-107); Creatinine Clr Calc Pharmacy 49.8 ml/min; Glucose 223.0 mg/dl (70-99(Fasting)); Potassium 3.8 mmol/L (3.5-5.1); Sodium 141.0 mmol/L (136-145)
--- NOTE | 2025-09-06 10:02 | Hospitalist Progress Note ---
Date of Service September 06, 2025 Assessment & Plan (1) Abdominal pain: (2) Renal insufficiency: (3) Elevated troponin: (4) Elevated lactic acid level: (5) Type 2 diabetes mellitus: Plan 80-year-old female PMHx gait ataxia, cardiomyopathy, HFrEF, seizure disorder, chronic cerebral ischemia, vascular dementia, hypothyroidism, HTN, ascending aorta dilatation, HLD, GERD, chronic hypoxemic respiratory failure, and DM presenting for abdominal pain. Her evaluation is significant for a mildly elevated Cr at 1.28, as well as a decreasing but elevated lactate (5.1-> 3.4) and increasing troponin (16.1-> 23.3). Her imaging suggests possible cystitis in the setting of a negative UA, no other acute findings. #Recurrent syncopal episodes #History of seizures "Unconscious episodes for hours" per daughter, reports that she had one before arrival to ED; follows with neurology who believes that she is having "breakthrough seizures" Seizure precautions neurochecks and telemetry continue with Divalproex, lamotrigine with adjustments per neurology EEG With structural changes, no evidence of epileptic activity Neuro Following will need close outpatient follow-up Neurology recommends outpatient sleep study. Will need close outpatient follow- up with plant associate and community engagement coordinator As neurologist is concerned for cardiopulmonary etiology for syncopal episodes Considering extensive cardiac history Orthostatics Echocardiogram Cardiology consultation #Abdominal pain resolved C/o abdominal pain, was concerned for UTI. Received IVF + 1 dose Ceftriaxone in ED. Imaging concerning for some constipation, pt however reports normal BM. Goal will be to help alleviate some of the stool burden, gently. - CBC stable; lactate improved (raises concern for seizure); trop 16.1-> 23.3; lipase WNL; procal WNL - UA negative for infection - CTAP mild-moderate stool burden, possible cystitis - Deferred further abx- Stable WBC + procal, no fevers, and no source of infection at present - lactate not proportionate to other findings bowel regimen as ordered for constipation #Renal insufficiency Mild elevation of Cr, no h/o CKD. Received 1L NSS in ED. - Bladder scan prn - Defer further IVF at this time - h/o HFrEF - Hold furosemide + Entresto at admission #Elevated troponin H/o elevated troponin levels not in setting of ACS. No CP, SOB, or palpitations at present. - Trop 16.1-> 23.3; trend - EKG sinus rhythm with 1st degree AV block, LBBB @ 92 bpm - Echo 07/2025 with EF 20-25% - Likely 2/2 demand - Will monitor on tele #Elevated lactic acid Has had elevated lactic acid levels in the past, almost every time she has the lab drawn. Pt is on metformin, 1,500mg daily, likely contributes to this finding. She has a history of seizures, so if she did have a recent episode this could be an additional possible etiology. Overall, renal and liver functions stable but poor clearance could be considered. No signs of infection at this time. - Lactate 5.1-> 3.4 -> repeat am - Procal, WBC WNL - UA without infection - CXR no PNA or abnormalities - CTAP with mild-moderate stool burden, ? cystitis (negative UA) - metformin held. may need to consider alternative oral hypogycemic at time of discharge/close follow up . Lantus increased on discharge #T2DM H/o T2DM. At home regimen includes insulin glargine 18U HS, metformin. Hyperglycemic at admission. - Glucose on admission 244; Most recent A1c 08/2025 @ 8.9% - Hold home regimen -short and long acting insulin #HFrEF- BNP 71, CXR without acute findings, last echo 07/2025 with EF 20-25%; as above #HTN- home meds #Hypothyroidism- TSH 08/20/2025 @ 9.177; Levothyroxine - continue #Cerebrovascular disease- Plavix - continue #Chronic hypoxemia respiratory failure- CXR stable; 2L O2 at atll times at baseline - continue #GERD- Omeprazole - continue Dispo: SNF VTE Prophylaxis: SCDs This document was dictated utilizing [employer]. Please excuse any grammatical errors that may be secondary to use of this software. Admission and Anticipated Discharge Date Admission Date: September 05, 2025 Subjective She tells me she feels just fine. Remains somewhat confused with limited insight. Denies abdominal pain chest pain shortness of breath lightheadedness nausea neurological or any other symptoms RN at bedside. She tells me no events on telemetry. No bowel movements for past 3 days bowel regimen upgraded Review of Systems Review of Systems: Negative except as in HPI Physical Exam Physical Exam: General: No acute distress Skin: Warm and dry Head: Normocephalic, atraumatic Eyes: PERRL, conjunctivae clear, sclera non-icteric ENT: External ear and ear canal without swelling; nose atraumatic; good dentition, tongue normal appearance, pharynx normal Neck: Supple, no LAD Cardio: RRR, no M/G/R, S1 and S2 normal Resp: O2 via NC (at baseline); no respiratory distress, Lungs CTA in all lobes bilaterally, no wheezes, rales, or rhonchi Abdomen: Soft, symmetric, nontender; No masses or hepatosplenomegaly; Bowel sounds normoactive MSK: No deformities; pulses palpable and equal; pitting edema BLE. Neuro: Awake, alert; Sensation intact bilaterally; CN grossly intact Psych: Appropriate mood and affect; poor historian. Results & Data Results & Data Vital Signs (Past 12 Hours) Vital Signs Temp Pulse Pulse Resp BP BP Pulse Ox 09/06/25 07:34 36.5 C 88 18 137/80 95 09/06/25 04:19 09/06/25 03:32 36.5 C 93 H 16 174/76 H 94 09/05/25 23:22 36.5 C 86 18 154/75 H 97 09/05/25 22:32 89 Pulse Ox O2 Del Method O2 Del Method O2 Flow Rate O2 Flow Rate 09/06/25 07:34 Nasal Cannula 2 09/06/25 04:19 92 Nasal Cannula 2 09/06/25 03:32 Nasal Cannula 2 09/05/25 23:22 Nasal Cannula 2 09/05/25 22:32 PG Care Time/CCT Total # of Minutes Spent Total Time Spent with Patient: Total time spent is greater than 50% in coordination of care (as documented) at patient's floor/unit and/or counseling patient: Coding Level of Care Code 23009 SUB INP/OBS CARE 2/35MIN Diagnoses Abdominal pain R10.84 Abdominal location: generalized Renal insufficiency N28.9 Elevated troponin R79.89 Elevated lactic acid level R79.89 Type 2 diabetes mellitus E11.9 (1) Abdominal pain Abdominal location: generalized Qualified Code(s): R10.84 - Generalized abdominal pain
[2025-09-06] MEDS ORDERED: MAGNESIUM HYDROXIDE SUSP 30 ML UDC PO PRN (10:05)
[2025-09-06] MEDS: MAGNESIUM HYDROXIDE SUSP 30 ML UDC PO ONE (10:15)
[2025-09-06] MEDS: LANTUS PER UNIT CHARGE SQ ONE (11:09)
--- NOTE | 2025-09-06 13:14 | Cardiology Consultation ---
Date of Consultation September 06, 2025 Assessment & Plan (1) Unresponsive episode: -Etiology uncertain, however, favor a neurologic event. -No arrhythmia has been identified on outpatient monitors nor telemetry monitoring thus far. -Would keep on telemetry as long as hospitalized. (2) HFrEF (heart failure with reduced ejection fraction): -Seems compensated at this time (lying supine in bed without difficulty). -LVEF of 20 to 25% on echocardiogram, July 2025 -Continue medical management with carvedilol, Entresto, Lasix, and potassium. -Continue follow-up in the CHF clinic. (3) Cardiomyopathy: -Nonischemic etiology. (4) Nonobstructive atherosclerosis of coronary artery: -Mild disease in the mid LAD at time of cardiac catheterization, January 2023. History of Present Illness Attending Physician: Paul Murrieta MD History of Present Illness Mrs. Mccormack is an 80-year-old female admitted yesterday with abdominal pain. Her family noted continuation of her intermittent unresponsive episodes. Therefore, this consultation was ordered. Of note, the patient typically follows with Dr. Clarke and also in the CHF clinic. The patient was in her usual state of health until the day of presentation. Apparently, she developed significant abdominal pain and the staff at her personal-retirement reached out to the family. She was brought to the emergency room for further care. During the interview, the patient's daughter explained that she continues to experience episodes of unconsciousness. She typically follows with neurology for these episodes. She has undergone extensive cardiac workup including Holter monitor and event monitors. At no time as she demonstrated a bradycardia dysrhythmia. Her monitor performed in July 2024 noted frequent PVCs and 8 episodes of a paroxysmal ventricular tachycardia, longest was 13 beats in length. She was seen in the CHF clinic on August 22. Low-dose Entresto was added to her medical regimen at that time. An echocardiogram performed on July 16, 2025 noted severe left ventricular dysfunction with an ejection fraction of 20 to 25%. There was significant LVH along with mild mitral regurgitation. Currently, the patient is quite somnolent and unable to participate with an int erview. Past medical and surgical history 1. Nonobstructive coronary artery diseasemild LAD disease, January 2023 2. Chronic systolic CHF 3. Nonischemic cardiomyopathy 4. Hypertension 5. Hypercholesterolemia 6. LBBB 7. History of CVA 8. Seizure disorder 9. Diabetes 10. Dementia 11. GERD 12. Right TKR 13. Appendectomy 14. Hysterectomy Social history [facility] [place], [place] No tobacco or alcohol Family history Noncontributory Review of system Unobtainable Allergies Allergy/AdvReac Type Severity Reaction Status Date / Time aspirin Allergy Severe Hives Verified 09/04/25 21:10 NSAIDS (Non-Steroidal Allergy Intermediate Hives Verified 09/04/25 21:10 Anti-Inflamma Penicillins Allergy Intermediate Hives Verified 09/04/25 21:10 vancomycin Allergy Intermediate Redness of Verified 08/30/25 09:38 Skin fenofibrate Allergy Unknown ON PT MED Verified 08/30/25 09:38 LIST naproxen Allergy Unknown Unknown - Verified 09/04/25 21:10 On Med List from [facility] propoxyphene Allergy Unknown ON PT MED Verified 08/30/25 09:38 LIST Home Medications Medication Instructions Recorded Confirmed Type cholecalciferol (vitamin D3) 25 25 mcg PO QAM 03/17/23 09/04/25 History mcg (1,000 unit) capsule (Vitamin D3) levothyroxine 25 mcg tablet 25 mcg PO DAILYBB 03/17/23 09/04/25 History (Synthroid) clopidogrel 75 mg tablet 75 mg PO QAM #30 tabs 04/28/23 09/04/25 Rx diclofenac sodium 1 % topical gel 2 g topical TID 02/05/24 09/04/25 History emollient combination no.92 1 applic topical BID Dry skin - 02/05/24 09/04/25 History (Lubriderm Daily Moisture lotion) Legs loperamide 2 mg capsule 2 mg PO UD PRN Diarrhea 02/05/24 09/04/25 History omeprazole 40 mg capsule,delayed 40 mg PO DAILYBB 02/05/24 09/04/25 History release acetaminophen 650 mg 650 mg PO Q4H PRN Pain 01/25/25 09/04/25 History tablet,extended release dextromethorphan-guaifenesin 30 2 tab PO Q12H PRN COUGH/CONGESTION 01/25/25 09/04/25 History mg-600 mg tablet extended [id number] hr (Mucinex DM) carvedilol 6.25 mg tablet 6.25 mg PO BID #60 tabs 07/18/25 09/04/25 Rx hydroxyzine HCl 10 mg tablet 10 mg PO Q6H PRN Itching 07/19/25 09/04/25 History insulin glargine 100 unit/mL (3 18 unit subcut HS 07/19/25 09/04/25 History mL) subcutaneous pen (Lantus Solostar U-100 Insulin) cyanocobalamin (vitamin B-12) 500 1,000 mcg (2 x 500 mcg) PO QAM #60 08/03/25 09/04/25 Rx mcg tablet tabs potassium chloride 20 mEq 20 meq PO DAILYBB 08/11/25 09/04/25 History tablet,extended release cranberry 30,000 mg PO DAILY Chronic UTI 08/15/25 09/04/25 History diclofenac sodium 1 % topical gel 2 g topical DAILY PRN Pain 08/15/25 09/04/25 History furosemide 40 mg tablet 80 mg PO DAILY PRN WT GAIN 08/15/25 09/04/25 History nystatin 100,000 unit/gram topical 1 applic topical BID PRN NEEDED 08/15/25 09/04/25 History ointment potassium chloride 20 mEq 20 meq PO DAILY PRN WHEN TAKES 08/15/25 09/04/25 History tablet,extended release LASIX Portable Oxygen #1 ea 08/17/25 09/04/25 Rx dextromethorphan-guaifenesin 10 10 ml PO Q6H PRN Cough 08/20/25 09/04/25 History mg-100 mg/5 mL oral syrup (Tussin DM) ferrous sulfate 325 mg (65 mg 325 mg PO Q OTHER DAY 08/20/25 09/04/25 History iron) tablet (FeroSul) magnesium oxide 400 mg PO DAILY 08/20/25 09/04/25 History metformin 500 mg tablet 1,000 mg PO QAM 08/20/25 09/04/25 History metformin 500 mg tablet 500 mg PO QPM 08/20/25 09/04/25 History multivitamin 1 tab PO DAILY 08/20/25 09/04/25 History sacubitril 24 mg-valsartan 26 mg 1 tab PO BID #60 tabs 08/22/25 09/04/25 Rx tablet (Entresto) Oxygen Home #2 L 08/25/25 09/04/25 Rx divalproex 500 mg tablet,extended 500 mg PO DAILY #30 tabs 08/30/25 09/04/25 Rx release 24 hr furosemide 40 mg tablet (Lasix) 80 mg PO DAILY 08/30/25 09/04/25 History lamotrigine 150 mg tablet 150 mg PO BID #60 tabs 08/30/25 09/04/25 Rx (Subvenite) acetaminophen 325 mg tablet 650 mg PO Q4 PRN Fever 09/04/25 09/04/25 History lactulose 10 gram/15 mL oral 20 g (30 mL) PO BID 30 days #1,800 09/06/25 Rx solution mL Patient History Medical History Unresponsive episode 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 Acute respiratory failure with hypoxia Nonobstructive atherosclerosis of coronary artery Thoracic aortic aneurysm LBBB (left bundle branch block) Depression Infarction of kidney Neuropathy Recurrent UTI (urinary tract infection) Strain of rotator cuff of right shoulder Surgical History S/P colonoscopy S/P hysterectomy S/P appendectomy History of back surgery Status post right knee replacement No pertinent past surgical history Family History Mother Heart disease Dementia Father Lung cancer Social History Smoking Status: Never smoker Tobacco Type: Declines Second Hand Exposure: No; Do You Dip or Chew Tobacco: No; Tobacco Cessation Education Requested by Patient: No Hx Alcohol Use: No Hx Substance Use: No Preferred Language: Panamanian Communication Ability: Effective Communication Ability Comment: confused, but clear Visual Impairment: No Limitations Hearing Ability: Normal Title I Teacher Required: No Beliefs That Will Affect Care: None marital status: / Current Living Situation: [facility] Current Living Situation Comment: [facility] current occupational status: retired 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 Physical Exam Physical Exam: In general is well-developed well-nourished white female in no acute distress. HEENT exam is negative. Neck is supple with full carotid upstrokes. No obvious bruits. Jugular venous pressure is difficult to assess. Cardiovascular exam reveals a regular rhythm with distant heart sounds. No obvious murmurs. No S3. Lungs are clear without rales, rhonchi, or wheezes. Abdomen is soft. E xtremities reveal intact radial artery pulses bilaterally. Trace pretibial edema is noted. Results & Data Vital Signs (Past 12 Hours) Vital Signs Temp Pulse Resp BP BP Pulse Ox Pulse Ox 09/06/25 11:56 09/06/25 11:28 36.4 C L 89 20 141/79 H 97 09/06/25 07:34 36.5 C 88 18 137/80 95 09/06/25 04:19 92 09/06/25 03:32 36.5 C 93 H 16 174/76 H 94 O2 Del Method O2 Del Method O2 Flow Rate O2 Flow Rate 09/06/25 11:56 Nasal Cannula 2 09/06/25 11:28 Room Air 09/06/25 07:34 Nasal Cannula 2 09/06/25 04:19 Nasal Cannula 2 09/06/25 03:32 Nasal Cannula 2 Laboratory Results CBC and electrolytes are unremarkable. High-sensitivity troponin peaked at 36. Diagnostic Findings hall monitor notes sinus rhythm in the 70s to 80s beat per minute range. No pauses or inappropriate bradycardias. PG Care Time/CCT Total # of Minutes Spent Total Time Spent with Patient: Total time spent is greater than 50% in coordination of care (as documented) at patient's floor/unit and/or counseling patient: Coding Level of Care Code 36380 INT INP/OBS CARE 3/75MIN Diagnoses Unresponsive episode R40.4 HFrEF (heart failure with reduced ejection fraction) I50.20 Cardiomyopathy I42.9 Nonobstructive atherosclerosis of coronary artery I25.10
[2025-09-06] MEDS: ACETAMINOPHEN 325 MG TAB PO PRN (15:00)
[2025-09-06] MEDS: ONDANSETRON INJ 2 MG/ML 2 ML VIAL IV PRN (15:24)
[2025-09-06] MEDS ORDERED: LANTUS PER UNIT CHARGE SQ SCH (21:00)
[2025-09-06] MEDS: LANTUS PER UNIT CHARGE SQ SCH (21:02)
[2025-09-07 07:48] LABS: Anion Gap 8.0 (3-11); Calcium 9.5 mg/dl (8.6-10.3); Carbon Dioxide 28.0 mmol/L (21-32); Chloride 107.0 mmol/L (98-107); Potassium 3.8 mmol/L (3.5-5.1); Sodium 143.0 mmol/L (136-145)
[2025-09-07 07:54] LABS: Blood Urea Nitrogen 12.0 mg/dl (6-23); Creatinine Clr Calc Pharmacy 54.6 ml/min; Glucose 110.0 mg/dl (70-99(Fasting))
[2025-09-07 08:14] LABS: Hematocrit (blood only) 40.3 % (37.0-47.0); Hemoglobin 13.1 g/dL (12.0-16.0); Mean Corpuscular Hemoglobin 31.7 pg (25.0-34.0); Mean Corpuscular Volume 97.6 fL (80.0-100.0); Platelet Count 100 K/uL (130-400); RDW Standard Deviation 45.3 fL (36.4-46.3); Red Blood Count 4.13 M/uL (4.20-5.40); White Blood Count 5.76 K/ul (4.8-10.8)
--- NOTE | 2025-09-07 09:20 | Neurology Progress Note ---
Date of Service September 07, 2025 Assessment & Plan (1) Unresponsive episode: (2) Vascular dementia: (3) Chronic cerebral ischemia: Plan This patient has had episodes of unresponsiveness, sometimes lasting "hours" without obvious witnessed seizure activity. An EEG back in late July showed left temporal sharp waves and slowing. Other EEGs were without potentially epileptogenic activity. Although seizures cannot be excluded (and we are treating for seizures) prolonged seizures and prolonged postictal state do not make a lot of sense in this clinical setting. She should be very easily controlled with either lamotrigine or valproic acid. The patient has had multiple hospitalizations for these prolonged unresponsive episodes without any additional answers The patient has significant old small vessel ischemic disease on MRI with previous small strokes. Clinically, the patient has dementia which is likely vascular as well as age. His dementia seems fairly stable. The patient has significant cardiomyopathy and reduced ejection fraction. Cardiology does not feel the patient has had any dysrhythmia that would give unresponsive episodes. Patient also has chronic hypoxic respiratory issues and has been seen by pulmonology. These specialist do not correlate the unresponsive episodes with any cardiopulmonary disease. The event witnessed by the nurse last evening is interesting and suggest a willful unresponsiveness When given a gentle sternal rub, the patient immediately woke up and glared at the nurse. I wonder how much of her unresponsiveness is willful. In addition, she may have excessive daytime sleepiness creating part or all of this issue as well Recommendations: 1. Continue Depakote ER 500 mg twice a day 2. Check a trough Depakote level tomorrow in the a.m. 3. For now, keep lamotrigine 100 mg twice a day. There is no need for level since the dose has been lowered. Depending on her clinical course this will likely be tapered off. 4. I see no indication for additional neurologic testing at this time. 5. When the patient goes into a unresponsive episode try stimulation procedures (such as a sternal rub) to see if she comes right out of it like she did last night. 6. Consider sleep medicine consult and overnight polysomnography/MSLT studies as an outpatient 7. Patient will follow-up with Dr. Culp (or neurology PA) after discharge Overall, I spent a total of 75 minutes with this case including review of recor ds, review of MRI films, direct evaluation of the patient, report generation, and discussion of the case with the patient and RN at bedside and Dr. Murrieta including differential diagnosis Admission and Anticipated Discharge Date Admission Date: September 05, 2025 Subjective The patient currently has no complaint of pain, headache, dizziness, blurry vision, weakness, or numbness. She is currently not nauseated but did not eat her breakfast earlier today because of her GI issues. This morning blood pressure is 146/85 with a pulse in 70s and regular. She is afebrile at 36.1. The daytime nurse reported incident to me that was told to her by the nighttime nursegiven to her and reportregarding this patient (I cannot find any documentation of this in the chart by the nighttime nurse): The patient was seemingly asleep and would not wake up to verbal commands to take medication. After some period of time the nurse gave the patient a sternal rub and the patient immediately woke up with a glare. This makes me wonder how often the patient will fully refuses to respond to people around her making it seem as if she is unresponsive. I have experienced patient over the years who are very good at this. The most recent unresponsive episode otherwise was prior to coming to the hospital on September 04 (I have no details regarding this episode specifically). The patient's daughter states the patient can be unresponsive for "hours". Most recent MRI of the brain, August 01, 2025, showed extensive old small vessel ischemic disease and small, old, infarcts in the bilateral cerebellar and parietal lobes. On August 15, a lamotrigine level was 9.7 (normal 2.5-15) on 150 mg twice daily Since the patient continued to have episodes of unresponsiveness (and possible seizures) the patient was initiated on Depakote ER 500 milligrams a day on August 30 and on September 05 was increased to 500 mg ER twice daily. Lamotrigine was lowered to 100 mg twice a day Results & Data Vital Signs (Past 12 Hours) Vital Signs Temp Pulse Pulse Resp BP BP Pulse Ox 09/07/25 08:06 36.1 C L 78 16 146/85 H 100 09/07/25 06:45 79 09/07/25 02:41 36.6 C 82 16 132/74 97 09/06/25 22:03 84 O2 Del Method O2 Flow Rate 09/07/25 08:06 Room Air 09/07/25 06:45 09/07/25 02:41 Nasal Cannula 2 09/06/25 22:03 Exam (Neuro) Physical Exam: Currently the patient is awake and alert. Speech is without obvious aphasia or dysarthria. Mood is reasonable and affect is appropriate. She knew her name, her age, the month, the long term she is staying at ([facility]), but did not know exactly where she was, the year, or the president. Extraocular eye muscles are intact without nystagmus. There is no facial droop. Tongue is midline. Coordination is normal in the arms without obvious tremor or ataxia. Motor strength is 5/5 diffusely in the upper extremities bilaterally both proximally and distally. Lower extremity strength is 4/5 diffusely bilaterally both proximally and distally. Stance sitting up in bed is normal PG Care Time/CCT Total # of Minutes Spent Total Time Spent with Patient: Total time spent is greater than 50% in coordination of care (as documented) at patient's floor/unit and/or counseling patient: Coding Level of Care Code 27406 SUB INP/OBS CARE 3/50MIN Diagnoses Unresponsive episode R40.4 Moderate vascular dementia with other behavioral disturbance F01.B18 Dementia severity: moderate Dementia behavioral or psychological symptom: with other behavioral disturbance Chronic cerebral ischemia I67.82 Time Spent (min) 75 (2) Vascular dementia Dementia severity: moderate Dementia behavioral or psychological symptom: with other behavioral disturbance Qualified Code(s): F01.B18 - Vascular dementia, moderate, with other behavioral disturbance
[2025-09-07] MEDS ORDERED: NYSTATIN OINT 15 GM TUBE EXT PRN (10:23)
--- NOTE | 2025-09-07 10:23 | Hospitalist Progress Note ---
Date of Service September 07, 2025 Assessment & Plan (1) Abdominal pain: (2) Renal insufficiency: (3) Elevated troponin: (4) Elevated lactic acid level: (5) Type 2 diabetes mellitus: Plan 80-year-old female PMHx gait ataxia, cardiomyopathy, HFrEF, seizure disorder, chronic cerebral ischemia, vascular dementia, hypothyroidism, HTN, ascending aorta dilatation, HLD, GERD, chronic hypoxemic respiratory failure, and DM presenting for abdominal pain. Her evaluation is significant for a mildly elevated Cr at 1.28, as well as a decreasing but elevated lactate (5.1-> 3.4) and increasing troponin (16.1-> 23.3). Her imaging suggests possible cystitis in the setting of a negative UA, no other acute findings. #Recurrent syncopal episodes #History of seizures "Unconscious episodes for hours" per daughter, reports that she had one before arrival to ED; follows with neurology who believes that she is having "breakthrough seizures" Seizure precautions neurochecks and telemetry continue with Divalproex, lamotrigine with adjustments per neurology EEG With structural changes, no evidence of epileptic activity Neuro Following wondering if this is willfull unresponsiveness as awakens to noxious stimuli. will need close outpatient follow-up Neurology recommends outpatient sleep study. Will need close outpatient follow- up with pineapple plantation manager and trench pipe layer Cardiology Consulted Considering extensive cardiac history they recommend outpatient follow-up. No events reported on telemetry Orthostatics Echocardiogram #Abdominal pain resolved C/o abdominal pain, was concerned for UTI. Received IVF + 1 dose Ceftriaxone in ED. Imaging concerning for some constipation, pt however reports normal BM. Goal will be to help alleviate some of the stool burden, gently. - CBC stable; lactate improved (raises concern for seizure); trop 16.1-> 23.3; lipase WNL; procal WNL - UA negative for infection - CTAP mild-moderate stool burden, possible cystitis - Deferred further abx- Stable WBC + procal, no fevers, and no source of infection at present - lactate not proportionate to other findings bowel regimen as ordered for constipation #Renal insufficiency Mild elevation of Cr, no h/o CKD. Received 1L NSS in ED. - Bladder scan prn - Defer further IVF at this time - h/o HFrEF #Elevated troponin H/o elevated troponin levels not in setting of ACS. No CP, SOB, or palpitations at present. - Trop flat - EKG sinus rhythm with 1st degree AV block, LBBB @ 92 bpm - Likely 2/2 demand #Elevated lactic acid Has had elevated lactic acid levels in the past, almost every time she has the lab drawn. Pt is on metformin, 1,500mg daily, likely contributes to this finding. She has a history of seizures, so if she did have a recent episode this could be an additional possible etiology. Overall, renal and liver functions stable but poor clearance could be considered. No signs of infection at this time. - Lactate 5.1-> 3.4 -> repeat am - Procal, WBC WNL - UA without infection - CXR no PNA or abnormalities - CTAP with mild-moderate stool burden, ? cystitis (negative UA) - metformin held. may need to consider alternative oral hypogycemic at time of discharge/close follow up . Lantus increased on discharge #T2DM H/o T2DM. At home regimen includes insulin glargine 18U HS, metformin. Hyperglycemic at admission. - Glucose on admission 244; Most recent A1c 08/2025 @ 8.9% - Metformin discontinued as above -short and long acting insulin #HFrEF- - Echo 07/2025 with EF 20-25% (noted to be worsened from previous) continue home cardiac meds including lasix #HTN- home meds #Hypothyroidism- TSH 08/20/2025 @ 9.177; Levothyroxine - continue #Cerebrovascular disease- Plavix - continue #Chronic hypoxemia respiratory failure- CXR stable; 2L O2 at atll times at baseline - continue #GERD- Omeprazole - continue Dispo: SNF VTE Prophylaxis: SCDs This document was dictated utilizing Blink for iPhone and Android. Please excuse any grammatical errors that may be secondary to use of this software. Admission and Anticipated Discharge Date Admission Date: September 05, 2025 Subjective Apparently another unresponsive episode overnight however responded to sternal rub where she quickly awoken. No reports of seizure activity or postictal state tongue biting incontinence etc. This morning notably confused with one-to-one at bedside. Denies any symptoms or complaints however limited historian. Unsure of her last bowel movement it seems to have been 3 days ago. Receiving bowel regimen this morning Discussed with neurologist at bedside [id number] extensively appreciate his expertise. Depakote level ordered for the morning(There is no option for a trial of and no way to put that in the notes under the order suspect this should automatically be a trough draw) Discussed the case with palliative care this morning. They will see the patient. Considering gradual worsening of ejection fraction on echo, multiple hospitalizations for unresponsiveness and multiple comorbidities DNR/DNI status should be considered. They will discuss this as well as goals of care with family Review of Systems Review of Systems: Negative except as in HPI Physical Exam Physical Exam: General: No acute distress Skin: Warm and dry Head: Normocephalic, atraumatic Eyes: PERRL, conjunctivae clear, sclera non-icteric ENT: External ear and ear canal without swelling; nose atraumatic; good dentition, tongue normal appearance, pharynx normal Neck: Supple, no LAD Cardio: RRR, no M/G/R, S1 and S2 normal Resp: O2 via NC (at baseline); no respiratory distress, Lungs CTA in all lobes bilaterally, no wheezes, rales, or rhonchi Abdomen: Soft, symmetric, nontender; No masses or hepatosplenomegaly; Bowel sounds normoactive MSK: No deformities; pulses palpable and equal; pitting edema BLE. Neuro: Awake, alert; Sensation intact bilaterally; CN grossly intact Results & Data Results & Data Vital Signs (Past 12 Hours) Vital Signs Temp Pulse Pulse Resp BP BP Pulse Ox 09/07/25 08:45 09/07/25 08:06 36.1 C L 78 16 146/85 H 100 09/07/25 06:45 79 09/07/25 02:41 36.6 C 82 16 132/74 97 O2 Del Method O2 Flow Rate 09/07/25 08:45 Nasal Cannula 2 09/07/25 08:06 Room Air 09/07/25 06:45 09/07/25 02:41 Nasal Cannula 2 PG Care Time/CCT Total # of Minutes Spent Total Time Spent with Patient: Total time spent is greater than 50% in coordination of care (as documented) at patient's floor/unit and/or counseling patient: Coding Level of Care Code 24931 SUB INP/OBS CARE 2/35MIN Diagnoses Abdominal pain R10.84 Abdominal location: generalized Renal insufficiency N28.9 Elevated troponin R79.89 Elevated lactic acid level R79.89 Type 2 diabetes mellitus E11.9 (1) Abdominal pain Abdominal location: generalized Qualified Code(s): R10.84 - Generalized abdominal pain
[2025-09-07] MEDS: PNEUMOCOCCAL VACCINE (PCV20) 20-VAL CONJ-DIP CRM/PF 0.5 ML SYR IM ONE (11:20)
[2025-09-07] MEDS: CHOLECALCIFEROL 25 MCG (1000 UNITS) TAB PO SCH (11:20)
[2025-09-07] MEDS: FUROSEMIDE 80 MG TAB PO SCH (11:20)
[2025-09-07] MEDS: CYANOCOBALAMIN (B-12) 500 MCG TABLET PO SCH (11:20)
[2025-09-07] MEDS: INFLUENZA VACC TS2025-26(65y+)/PF (IIV3) 0.5mL Syr IM ONE (11:20)
[2025-09-07] MEDS: VALSARTAN/SACUBITRIL 26/24MG TAB PO SCH (11:20)
[2025-09-08] MEDS ORDERED: MELATONIN 3 MG TAB PO PRN (00:37)
[2025-09-08] MEDS: POTASSIUM CHLORIDE CRTAB 20 MEQ TABCR PO SCH (05:58)
[2025-09-08 06:41] LABS: Hematocrit (blood only) 40.7 % (37.0-47.0); Hemoglobin 13.8 g/dL (12.0-16.0); Mean Corpuscular Hemoglobin 32.7 pg (25.0-34.0); Mean Corpuscular Volume 96.4 fL (80.0-100.0); Platelet Count 206 K/uL (130-400); RDW Standard Deviation 45.1 fL (36.4-46.3); Red Blood Count 4.22 M/uL (4.20-5.40); White Blood Count 6.44 K/ul (4.8-10.8)
[2025-09-08 07:14] LABS: Anion Gap 10.0 (3-11); Blood Urea Nitrogen 17.0 mg/dl (6-23); Carbon Dioxide 27.0 mmol/L (21-32); Chloride 104.0 mmol/L (98-107); Potassium 3.7 mmol/L (3.5-5.1); Sodium 141.0 mmol/L (136-145)
[2025-09-08 07:15] LABS: Calcium 9.6 mg/dl (8.6-10.3); Creatinine Clr Calc Pharmacy 38.5 ml/min; Glucose 216.0 mg/dl (70-99(Fasting))
[2025-09-08 07:40] VITALS: BP 126/78; RESP 18; TEMP 98.1; O2SAT 99
--- NOTE | 2025-09-08 08:45 | Palliative Care Consultation ---
Date of Consultation September 07 2025 Assessment & Plan (1) Abdominal pain: Abdominal location: generalized Qualified Code(s): R10.84 - Generalized abdominal pain (2) Vascular dementia: Dementia severity: moderate Dementia behavioral or psychological symptom: with other behavioral disturbance Qualified Code(s): F01.B18 - Vascular dementia, moderate, with other behavioral disturbance (3) Weakness generalized: (4) Poor appetite: (5) Counseling regarding goals of care: Me with pt at bedside, she was awake and alert sitting in chair, but oriented to person only per her baseline. No visitors present. Spoke with he daughter Gilda Callahan by phone. Gilda shared that the patient has had a steady decline in cognitive function and quality of life over several weeks to months and the family has discussed enrolling her with hospice care on return to SNF. Family is all in agreement and understand that patient has multiple progressively debilitating and irreversible chronic medical conditions including dementia and HF. She shared that they struggled with the pt's PCP to get approval for hospice but since admission they have been able to enroll her with hospice care at SNF. She requests DNR/DNI status and to continue to optimize pt's care through discharge with plan to return to SNF for ongoing comfort directed care. Ary reinforced that they would not wish for escalation of care while here at hospital and are hopeful pt remains stable for return to SNF. If pt decompensates while in our care, plan is for transition to comfort directed care with evaluation for [facility] hospice. CM and primary team made aware. Plan DNR/DNI, continue to optimize health through discharge to SNF with hospice. 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 History of Present Illness Reason for Consultation: goals of care Requesting Physician: Paul Murrieta MD Attending Physician: Paul Murrieta MD History of Present Illness 80-year-old female PMHx gait ataxia, cardiomyopathy, HFrEF, seizure disorder, chronic cerebral ischemia, vascular dementia, hypothyroidism, HTN, ascending aorta dilatation, HLD, GERD, chronic hypoxemic respiratory failure, and DM presenting for abdominal pain. SHe was admitted for medical mgmt of abd pain. Per CM notes family requested hospice referral in ED. Palliative care was consulted for assistance with clarification of goals of care. Allergies Allergy/AdvReac Type Severity Reaction Status Date / Time aspirin Allergy Severe Hives Verified 09/04/25 21:10 NSAIDS (Non-Steroidal Allergy Intermediate Hives Verified 09/04/25 21:10 Anti-Inflamma Penicillins Allergy Intermediate Hives Verified 09/04/25 21:10 vancomycin Allergy Intermediate Redness of Verified 08/30/25 09:38 Skin fenofibrate Allergy Unknown ON PT MED Verified 08/30/25 09:38 LIST naproxen Allergy Unknown Unknown - Verified 09/04/25 21:10 On Med List from [facility] propoxyphene Allergy Unknown ON PT MED Verified 08/30/25 09:38 LIST Home Medications Medication Instructions Recorded Confirmed Type cholecalciferol (vitamin D3) 25 25 mcg PO QAM 03/17/23 09/04/25 History mcg (1,000 unit) capsule (Vitamin D3) levothyroxine 25 mcg tablet 25 mcg PO DAILYBB 03/17/23 09/04/25 History (Synthroid) clopidogrel 75 mg tablet 75 mg PO QAM #30 tabs 04/28/23 09/04/25 Rx diclofenac sodium 1 % topical gel 2 g topical TID 02/05/24 09/04/25 History emollient combination no.92 1 applic topical BID Dry skin - 02/05/24 09/04/25 History (Lubriderm Daily Moisture lotion) Legs loperamide 2 mg capsule 2 mg PO UD PRN Diarrhea 02/05/24 09/04/25 History omeprazole 40 mg capsule,delayed 40 mg PO DAILYBB 02/05/24 09/04/25 History release acetaminophen 650 mg 650 mg PO Q4H PRN Pain 01/25/25 09/04/25 History tablet,extended release dextromethorphan-guaifenesin 30 2 tab PO Q12H PRN COUGH/CONGESTION 01/25/25 09/04/25 History mg-600 mg tablet extended [id number] hr (Mucinex DM) carvedilol 6.25 mg tablet 6.25 mg PO BID #60 tabs 07/18/25 09/04/25 Rx hydroxyzine HCl 10 mg tablet 10 mg PO Q6H PRN Itching 07/19/25 09/04/25 History insulin glargine 100 unit/mL (3 18 unit subcut HS 07/19/25 09/04/25 History mL) subcutaneous pen (Lantus Solostar U-100 Insulin) cyanocobalamin (vitamin B-12) 500 1,000 mcg (2 x 500 mcg) PO QAM #60 08/03/25 09/04/25 Rx mcg tablet tabs potassium chloride 20 mEq 20 meq PO DAILYBB 08/11/25 09/04/25 History tablet,extended release cranberry 30,000 mg PO DAILY Chronic UTI 08/15/25 09/04/25 History diclofenac sodium 1 % topical gel 2 g topical DAILY PRN Pain 08/15/25 09/04/25 History furosemide 40 mg tablet 80 mg PO DAILY PRN WT GAIN 08/15/25 09/04/25 History nystatin 100,000 unit/gram topical 1 applic topical BID PRN NEEDED 08/15/25 09/04/25 History ointment potassium chloride 20 mEq 20 meq PO DAILY PRN WHEN TAKES 08/15/25 09/04/25 History tablet,extended release LASIX Portable Oxygen #1 ea 08/17/25 09/04/25 Rx dextromethorphan-guaifenesin 10 10 ml PO Q6H PRN Cough 08/20/25 09/04/25 History mg-100 mg/5 mL oral syrup (Tussin DM) ferrous sulfate 325 mg (65 mg 325 mg PO Q OTHER DAY 08/20/25 09/04/25 History iron) tablet (FeroSul) magnesium oxide 400 mg PO DAILY 08/20/25 09/04/25 History metformin 500 mg tablet 1,000 mg PO QAM 08/20/25 09/04/25 History metformin 500 mg tablet 500 mg PO QPM 08/20/25 09/04/25 History multivitamin 1 tab PO DAILY 08/20/25 09/04/25 History sacubitril 24 mg-valsartan 26 mg 1 tab PO BID #60 tabs 08/22/25 09/04/25 Rx tablet (Entresto) Oxygen Home #2 L 08/25/25 09/04/25 Rx divalproex 500 mg tablet,extended 500 mg PO DAILY #30 tabs 08/30/25 09/04/25 Rx release 24 hr furosemide 40 mg tablet (Lasix) 80 mg PO DAILY 08/30/25 09/04/25 History lamotrigine 150 mg tablet 150 mg PO BID #60 tabs 08/30/25 09/04/25 Rx (Subvenite) acetaminophen 325 mg tablet 650 mg PO Q4 PRN Fever 09/04/25 09/04/25 History lactulose 10 gram/15 mL oral 20 g (30 mL) PO BID 30 days #1,800 09/06/25 Rx solution mL Patient History Medical History Unresponsive episode 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 Acute respiratory failure with hypoxia Nonobstructive atherosclerosis of coronary artery Thoracic aortic aneurysm LBBB (left bundle branch block) Depression Infarction of kidney Neuropathy Recurrent UTI (urinary tract infection) Strain of rotator cuff of right shoulder Surgical History S/P colonoscopy S/P hysterectomy S/P appendectomy History of back surgery Status post right knee replacement No pertinent past surgical history Family History Mother Heart disease Dementia Father Lung cancer Social History Smoking Status: Never smoker Tobacco Type: Declines Second Hand Exposure: No; Do You Dip or Chew Tobacco: No; Tobacco Cessation Education Requested by Patient: No Hx Alcohol Use: No Hx Substance Use: No Preferred Language: Hungarian Communication Ability: Effective Communication Ability Comment: confused, but clear Visual Impairment: No Limitations Hearing Ability: Normal Headwaitress Required: No Beliefs That Will Affect Care: None marital status: / Current Living Situation: Intermediate Current Living Situation Comment: [facility] current occupational status: retired 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 Review of Systems Review of Systems: Unobtainable due to cognitive status Physical Exam Constitutional: WD/WN, vitals as above Eyes: PERRL, conjunctivae normal, anicteric sclerae Respiratory: normal respiratory effort, lungs clear to auscultation Cardiovascular: RRR, no murmur, no edema Gastrointestinal (Abdomen): normal bowel sounds, soft, nontender, no hepatosplenomegaly Neurologic: PERRL, EOMI, accommodation nl, no face palsy, no dysarthria Psychiatric: Orientation: alert, oriented to person and cooperative Results & Data Vital Signs (Past 12 Hours) Vital Signs Temp Pulse Pulse Resp BP BP Pulse Ox 09/08/25 07:39 36.7 C 82 18 126/78 99 09/08/25 03:05 36.6 C 83 20 92/58 L 96 09/07/25 23:20 36.8 C 88 24 85/51 L 81/52 L 95 09/07/25 22:24 85 O2 Del Method O2 Flow Rate 09/08/25 07:39 Nasal Cannula 3 09/08/25 03:05 Nasal Cannula 3.5 09/07/25 23:20 Nasal Cannula 3.5 09/07/25 22:24 PG Care Time/CCT Total # of Minutes Spent Total Time Spent with Patient: Total time spent is greater than 50% in coordination of care (as documented) at patient's floor/unit and/or counseling patient: [place] [address] IN/OBS CONSULT LVL 3,45M Patient Type New History Expanded Problem Focused Exam Expanded Problem Focused Medical Decision Making Moderate Complexity Diagnoses Abdominal pain R10.84 Abdominal location: generalized Moderate vascular dementia with other behavioral disturbance F01.B18 Dementia severity: moderate Dementia behavioral or psychological symptom: with other behavioral disturbance Weakness generalized R53.1 Poor appetite R63.0 Counseling regarding goals of care Z71.89
[2025-09-08] MEDS: MAGNESIUM OXIDE 400 MG TAB PO SCH (09:00)
[2025-09-08 09:39] VITALS: PULSE 95
--- NOTE | 2025-09-08 10:26 | Discharge Summary ---
Discharge Summary Date of Service September 08, 2025 Principal Dx & Hospital Course #1 = Principal Diagnosis (1) Abdominal pain: (2) Renal insufficiency: (3) Elevated troponin: (4) Elevated lactic acid level: (5) Type 2 diabetes mellitus: Plan 80-year-old female PMHx gait ataxia, cardiomyopathy, HFrEF, seizure disorder, chronic cerebral ischemia, vascular dementia, hypothyroidism, HTN, ascending aorta dilatation, HLD, GERD, chronic hypoxemic respiratory failure, and DM presenting for abdominal pain. Her evaluation is significant for a mildly elevated Cr at 1.28, as well as a decreasing but elevated lactate (5.1-> 3.4) and increasing troponin (16.1-> 23.3). Her imaging suggests possible cystitis in the setting of a negative UA, no other acute findings. #Recurrent syncopal episodes #History of seizures "Unconscious episodes for hours" per daughter, reports that she had one before arrival to ED; follows with neurology who believes that she is having "breakthrough seizures" Seizure precautions neurochecks and telemetry continue with Divalproex, lamotrigine with adjustments per neurology EEG With structural changes, no evidence of epileptic activity Neuro Following wondering if this is willfull unresponsiveness as awakens to noxious stimuli. will need close outpatient follow-up Neurology recommends outpatient sleep study. Will need close outpatient follow-up with community support worker and visiting nurse Cardiology Consulted Considering extensive cardiac history they recommend outpatient follow-up. No events reported on telemetry Orthostatics Echocardiogram #Abdominal pain resolved C/o abdominal pain, was concerned for UTI. Received IVF + 1 dose Ceftriaxone in ED. Imaging concerning for some constipation, pt however reports normal BM. Goal will be to help alleviate some of the stool burden, gently. - CBC stable; lactate improved (raises concern for seizure); trop 16.1-> 23.3; lipase WNL; procal WNL - UA negative for infection - CTAP mild-moderate stool burden, possible cystitis - Deferred further abx- Stable WBC + procal, no fevers, and no source of infection at present - lactate not proportionate to other findings bowel regimen as ordered for constipation #Renal insufficiency Mild elevation of Cr, no h/o CKD. Received 1L NSS in ED. - Bladder scan prn - Defer further IVF at this time - h/o HFrEF #Elevated troponin H/o elevated troponin levels not in setting of ACS. No CP, SOB, or palpitations at present. - Trop flat - EKG sinus rhythm with 1st degree AV block, LBBB @ 92 bpm - Likely 2/2 demand #Elevated lactic acid Has had elevated lactic acid levels in the past, almost every time she has the lab drawn. Pt is on metformin, 1,500mg daily, likely contributes to this finding. She has a history of seizures, so if she did have a recent episode this could be an additional possible etiology. Overall, renal and liver functions stable but poor clearance could be considered. No signs of infection at this time. - Lactate 5.1-> 3.4 -> repeat am - Procal, WBC WNL - UA without infection - CXR no PNA or abnormalities - CTAP with mild-moderate stool burden, ? cystitis (negative UA) - metformin held. may need to consider alternative oral hypogycemic at time of discharge/close follow up . Lantus increased on discharge #T2DM H/o T2DM. At home regimen includes insulin glargine 18U HS, metformin. Hyperglycemic at admission. - Glucose on admission 244; Most recent A1c 08/2025 @ 8.9% - Metformin discontinued as above -short and long acting insulin #HFrEF- - Echo 07/2025 with EF 20-25% (noted to be worsened from previous) continue home cardiac meds including lasix #HTN- home meds #Hypothyroidism- TSH 08/20/2025 @ 9.177; Levothyroxine - continue #Cerebrovascular disease- Plavix - continue #Chronic hypoxemia respiratory failure- CXR stable; 2L O2 at atll times at baseline - continue #GERD- Omeprazole - continue Dispo: SNF VTE Prophylaxis: SCDs This document was dictated utilizing [employer]. Please excuse any grammatical errors that may be secondary to use of this software. Notes For Next Care Provider Subjective Seen at bedside with RN. Doing well no symptoms or complaints. Having bowel movements. RN, case management and palliative team confirmed patient will be transitioning to hospice upon arrival at SNF Admission HPI Per Admitting Provider 80-year-old female PMHx gait ataxia, cardiomyopathy, HFrEF, seizure disorder, chronic cerebral ischemia, vascular dementia, hypothyroidism, HTN, ascending aorta dilatation, HLD, GERD, chronic hypoxemic respiratory failure, and DM presenting for abdominal pain. Her daughter helps provide history. Patient is without current complaints. Patient's daughter states that she was called from the [facility] ([facility]) that her mother was having significant abdominal pain to the point that she was crying. The staff reports that they tried to sit her down in a chair to help alleviate the symptoms and she immediately sprung back up because it worsen the pain. Patient denies any abdominal pain, does not member with apnea. She does have history of dementia at baseline, she is at her baseline. Her daughter also expresses episodes of "unconsciousness for hours" in which the patient follows with neurology for. Has been told that these are breakthrough seizures, however the patient does not have any tonic-clonic movements of the body when these occur. Reportedly had an episode prior to arriving to the ED on the day of arrival. No nausea or vomiting, no fever or chills. Patient states that she has normal bowel movements. No chest pain, SOB, palpitations, diarrhea/constipation, URI symptoms, LUTS, weakness, syncope, or falls. Patient is pleasantly resting at this time, states that she just wants to sleep. Patient's daughter concern for patient going home if the pain was not significant prior to arriving. ED evaluation reveals CBC without leukocytosis/leukopenia, stable H/H; PT/INR WNL; CMP AG 12, Cr 1.28, glucose 244; lactate 5.1 then 3.4 on repeat; Ca 9.9, Mag 1.8; trop 16.1 then 23.3 on repeat; BNP 71; procal 0.02; UA without infection; CXR without focal airspace co nsolidation, no large effusion or PTX; CTAP with inciental punctate nonobstructive nephrolithiasis inferior pole of L kidney, diffuse bladder wall prominence, and mild-moderate stool burden; EKG sinus rhythm, with 1st degree AV block @ 92 bpm.; Provided with 1L NSS and Ceftriaxone 2g IV in ED. Please see Dr. Eagle's attestation for adjustments/additions to treatment plan. Discharge Exam General: No acute distress Skin: Warm and dry Head: Normocephalic, atraumatic Eyes: PERRL, conjunctivae clear, sclera non-icteric ENT: External ear and ear canal without swelling; nose atraumatic; good dentition, tongue normal appearance, pharynx normal Neck: Supple, no LAD Cardio: RRR, no M/G/R, S1 and S2 normal Resp: O2 via NC (at baseline); no respiratory distress, Lungs CTA in all lobes bilaterally, no wheezes, rales, or rhonchi Abdomen: Soft, symmetric, nontender; No masses or hepatosplenomegaly; Bowel so unds normoactive MSK: No deformities; pulses palpable and equal; pitting edema BLE. Neuro: Awake, alert; Sensation intact bilaterally; CN grossly intact Discharge Plan Discharge Items Patient Disposition: Hospice - Medical Facility Reason For Visit: ABD PAIN, ELEVATED TROP, ? BREAKTHROUGH SEIZURE Discharge Diagnosis: constipation questionable seizure? Condition on Discharge: Fair Activity: Resume your previous activity Non-emergency contact: Primary Care Provider, Analytical Statistician, Neurologist and District Adviser Call non-emergency contact if: you have any medication questions, your symptoms worsen, your pain is not controlled and you have a fever Follow-up/Referrals: Bonifacio Ibanez, DO [Primary Care Provider] - Diet: Carb Consistent or DM2, Low Fat and Low Sodium (2gm) Addtl Attending Provider Instructions: follow up with your primary care doctor in 3 days and neurologist in 1 week your metformin was held for high lactic acid. monitor blood sugar closely (Not applicable hence transition to hospice at SNF Upon arrival) Pending Studies at Discharge: No Stand-Alone Forms: My [employer] Skilled Items Patient informed of condition?: Yes DNR: No Discharge Level of Care: Skilled Communicable Disease: No Discharge Prognosis: Stable Lines: None Urinary Catheter: No Medications and DC Order Prescriptions: New lactulose 10 gram/15 mL Solution 20 g PO BID 30 Days Qty: 1800 0RF divalproex 500 mg Tablet Extended Release 24 Hr 500 mg PO BID 30 Days Qty: 60 0RF lamotrigine 100 mg Tablet 100 mg PO BID 30 Days Qty: 60 0RF insulin glargine [Lantus U-100 Insulin] 100 unit/mL Solution 10 unit subcut BID 30 Days Qty: 6 0RF Continued (DME) Portable Oxygen Misc See Rx Instructions .Route Qty: 1 0RF Rx Instructions: 3L NC continuous, Titrate up to keep pulse ox >92% hydroxyzine HCl 10 mg tablet 10 mg PO Q6H PRN (Reason: Itching) (DME) Oxygen Home Liters Per Minute See Rx Instructions .ROUTE .MEDSUPPLY Qty: 2 0RF Rx Instructions: Home oxygen concentrator at 2 L/min via nasal cannula with rest and exertion. dahlia 99. acetaminophen 650 mg tablet extended release 650 mg PO Q4H PRN (Reason: Pain) Mucinex DM 30-600 mg tablet extended release 12 hr 2 tab PO Q12H PRN (Reason: COUGH/CONGESTION) clopidogrel 75 mg Tablet 75 mg PO QAM Qty: 30 0RF cholecalciferol (vitamin D3) [Vitamin D3] 25 mcg (1,000 unit) Capsule 25 mcg PO QAM levothyroxine [Synthroid] 25 mcg tablet 25 mcg PO DAILYBB Rx Instructions: for underactive thyroid gland carvedilol 6.25 mg Tablet 6.25 mg PO BID Qty: 60 0RF cyanocobalamin (vitamin B-12) 500 mcg Tablet 1,000 mcg PO QAM Qty: 60 0RF Rx Instructions: take 2 tablet dose furosemide 40 mg Tablet 80 mg PO DAILY PRN (Reason: WT GAIN ) Rx Instructions: notify doctor if >by 2 lbs in 24 hours or 5 lbs in 1 week nystatin 100,000 unit/gram Ointment 1 applic TOPICAL BID PRN (Reason: NEEDED) diclofenac sodium 1 % Gel 2 g TOPICAL DAILY PRN (Reason: Pain) potassium chloride 20 mEq Tablet Extended Release 20 meq PO DAILY PRN (Reason: WHEN TAKES LASIX) cranberry 10,000 mg tablet 30,000 mg PO DAILY multivitamin Tablet 1 tab PO DAILY dextromethorphan-guaifenesin [Tussin DM] 10-100 mg/5 mL Syrup 10 ml PO Q6H PRN (Reason: Cough) ferrous sulfate [FeroSul] 325 mg (65 mg iron) Tablet 325 mg PO Q OTHER DAY magnesium oxide 400 mg magnesium Tablet 400 mg PO DAILY loperamide 2 mg capsule 2 mg PO UD MDD 8mg/24hrs PRN (Reason: Diarrhea) Rx Instructions: take 2 capsules after 1st loose stool then 1 capsule after each additional loose stool omeprazole 40 mg capsule,delayed release(DR/EC) 40 mg PO DAILYBB Lubriderm Daily Moisture Lotion 1 applic TOPICAL BID diclofenac sodium 1 % gel 2 g topical TID Rx Instructions: 0600, 1200, 1800 potassium chloride 20 mEq tablet extended release 20 meq PO DAILYBB Rx Instructions: take with Lasix Held sacubitril-valsartan [Entresto] 24-26 mg tablet 1 tab PO BID Qty: 60 2RF Hold Instructions: Resume on 09/12/25. reassess based on kidney function and blood pressure. N/A once placed back on hospice metformin 500 mg tablet 1,000 mg PO QAM Hold Instructions: Resume on 10/05/25. talk to your doctor about whether to continue. Your lactic acid was high during the hospitalization metformin 500 mg tablet 500 mg PO QPM Hold Instructions: Resume on 10/05/25. talk to your doctor about whether to continue. Your lactic acid was high during the hospitalization furosemide [Lasix] 40 mg tablet 80 mg PO DAILY Hold Instructions: Resume on 09/09/25. reassess based on kidney function and blood pressure. N/A once placed back on hospice Discontinued divalproex 500 mg tablet extended release 24 hr 500 mg PO DAILY Qty: 30 5RF lamotrigine [Subvenite] 150 mg tablet 150 mg PO BID Qty: 60 5RF acetaminophen 325 mg tablet 650 mg PO Q4 PRN (Reason: Fever) insulin glargine [Lantus Solostar U-100 Insulin] 100 unit/mL (3 mL) insulin pen 18 unit SUBCUT HS Discharge Orders: Discharge Order (Routine); Ordered 09/08/25 Ordered By: Paul Murrieta Admission Data Admit Date/Time: 09/07/25 12:44 Attending Provider: Paul Murrieta Admit Provider: Jon Eagle Primary Care Provider: Bonifacio Ibanez Other Providers: John Culp; Angelo Brody; Praveena Michael; Ashleigh Green; Rafaela Hernandez Rick D; Romaine Cooper; Rusty Lemon; Lopez Mukherjee; Miguel Rivera; Davis Clarke Jr; Jovany Ngo; Luisa De La Rosa; Kim Sy; Russel Salazar; Russel Ruggiero; Alyssa Rader; Jb Wilson; Jaqui Penaloza; Jb Call; Nishant Foley; Erich Bennett; Kenyon Nj; Camacho Cohen; Tiffany Muhammad; Bridgett Nevarez; Re May Other Interventions: Discharge Summary Assessment (RN) Last Done: 09/08/25 10:00 Hospital Stay Data Consultations 09/05/25 00:16 ED Decision to Admit Stat 09/05/25 07:06 Consult Neurology Routine 09/06/25 10:02 Consult Cardiology Routine 09/07/25 10:39 Consult Palliative Care Routine Diagnostic Imagining Performed 09/04/25 20:14 CT abd pelvis IV con only Stat Pending Results Patient Have Any Pending Studies at Discharge: No Discharge Instructions Given to Patient (Per Discharging Provider) follow up with your primary care doctor in 3 days and neurologist in 1 week your metformin was held for high lactic acid. monitor blood sugar closely (Not applicable hence transition to hospice at SNF Upon arrival) Total Time Total Time Spent Total Time Spent (In Minutes): 35 Coding Level of Care Code 46653 INP/OBS DISCH >30 MIN Diagnoses Abdominal pain R10.84 Abdominal location: generalized Renal insufficiency N28.9 Elevated troponin R79.89 Elevated lactic acid level R79.89 Type 2 diabetes mellitus E11.9
== END 2025-09-08 11:00 | disposition hospice, home (50) ==
LOC: 2N 19:57 → ED 19:57 → SUATTDRO 09-05 01:09 → 2N 09-05 03:36 → 2W 09-05 20:18